=== PATIENT | female | born 1980 | race Two or more races ===

== ENCOUNTER 2020-10-12 12:04 | Outpatient (REF) | payer MEDICARE, MEDICAID, SELFPAY ==
[2020-10-12 13:16] LABS: Glucose Urine UA 500 MG/DL (NEG); Leukocyte Esterase Urine NEG (NEG); Nitrite Urine NEG (NEG); Urine Blood 1+ (NEG); Urine Ketones NEG (NEG); Urine Protein 3+ MG/DL (NEG-TRACE)
[2020-10-12 13:18] LABS: Appearance Urine HAZY; Color Urine YELLOW
[2020-10-12 13:45] LABS: Albumin Level 3.2 g/dL (3.5-5.0); Anion Gap 14 (12-20); Blood Urea Nitrogen 28 mg/dL (9-16); Calcium 8.5 mg/dL (8.4-10.2); Carbon Dioxide 24 mmol/L (22-29); Chloride 107 mmol/L (96-108); Estimated Glomerular Filt Rate 16; Magnesium 2.2 mg/dL (1.6-2.6); Phosphorus 4.7 mg/dL (2.7-4.5); Potassium 4.3 mmol/L (3.3-5.1); Sodium 141 mmol/L (135-145)
[2020-10-12 14:17] LABS: Creatinine Urine 62.41 mg/dL; Microalbum/Creatinine Ratio Ur 7218.3 ug/mg cr; Total Protein Urine Random 695 mg/dL (<12)
[2020-10-12 14:33] LABS: Squamous Epithelial Cell Urine 2+ /LPF; WBC Urine 0-2 /HPF (0-4)
== END 2020-10-12 12:05 | disposition home or self-care (01) ==
LOC: HO.LAB 12:04
PROVIDERS: PCP Hospitalist; Visit Provider Internal Medicine Nephrology
DX: R80.9 Proteinuria, unspecified (principal); E11.21 Type 2 diabetes mellitus with diabetic nephropathy; E11.22 Type 2 diabetes mellitus with diabetic chronic kidney disease; N18.30 Chronic kidney disease, stage 3 unspecified
CPT/HCPCS: 36415; 80051; 81001; 82040; 82043; 82310; 82565; 83735; 84100; 84156; 84520

== ENCOUNTER 2020-11-16 11:08 | Emergency (ER) | payer MEDICARE, MEDICAID, SELFPAY ==
--- NOTE | ~2020-11-16 | CT_ITS ---
EXAMINATION: CT ABDOMEN AND PELVIS WITHOUT CONTRAST CLINICAL INFORMATION: Abdominal pain. Elevated lipase. COMPARISON: Previous CT scan August 2019 TECHNIQUE: Multidetector volumetric imaging was performed from the superior aspect of the liver through the pubic symphysis. Sagittal and coronal reformatted images were obtained on the technologist's workstation. This CT examination was performed using dose optimization techniques as appropriate, variously including the following: *Automated exposure control *Adjustment of mA and/or kV according to patient size (this includes techniques or standardized protocols for targeted exams where dose is matched to indication/reason for exam; i.e. extremities or head) *Use of iterative reconstruction technique DLP: 06/14/2006 mGy-cm FINDINGS: LUNG BASES: The visualized lung bases are unremarkable. LIVER, GALLBLADDER, AND BILIARY TREE: The liver is normal in size, shape, and attenuation. No focal hepatic lesion or biliary ductal dilatation is present. The gallbladder is unremarkable with no evidence of radiopaque gallstones, gallbladder wall thickening, or obvious pericholecystic inflammatory changes. PANCREAS: Unremarkable. SPLEEN: Unremarkable. ADRENAL GLANDS: There is a 1 x 2 cm low-attenuation left adrenal nodule that is stable and probably represents a benign adenoma. The right adrenal gland is normal. KIDNEYS AND URETERS: The kidneys are normal in size, shape, and attenuation. No hydronephrosis, hydroureter, or calculi seen. No perinephric stranding. BLADDER: Unremarkable. GASTROINTESTINAL TRACT: There is mild diverticulosis of the colon. The small and large bowel are otherwise unremarkable. The appendix is unremarkable. ABDOMINAL WALL: There is a small umbilical hernia containing fat.. There is skin thickening of the lower abdominal wall and stranding of the subcutaneous fat questionable for cellulitis. This is new or increased compared to August 2019 exam. LYMPH NODES: Normal. VASCULAR: Unremarkable. PELVIC VISCERA: Unremarkable. OSSEOUS STRUCTURES: There are degenerative changes of the spine. CT/CT abdomen pelvis wo con IMPRESSION: Normal-appearing pancreas. No evidence of pancreatitis. Stable low-attenuation left adrenal nodule probably representing a benign adenoma. Mild diverticulosis of the colon. In thickening and stranding of the subcutaneous fat of the lower abdominal wall questionable cellulitis.
[2020-11-16 11:31] VITALS: BP 230/114; PULSE 114; RESP 24; O2SAT 99; BMI 57.9
--- NOTE | 2020-11-16 11:38 | ECG_ITS ---
Test Reason : ABDOMINAL PAIN Blood Pressure : / mmHG Vent. Rate : 111 BPM Atrial Rate : 111 BPM P-R Int : 140 ms QRS Dur : 082 ms QT Int : 354 ms P-R-T Axes : 062 -27 060 degrees QTc Int : 481 ms Sinus tachycardia Cannot rule out Inferior infarct , age undetermined Abnormal ECG When compared with ECG of 24-AUG-2019 14:13, Vent. rate has increased BY 38 BPM Minimal criteria for Inferior infarct are now Present Referred By: Generic ED Physician Electronically Signed By:ROOPA CHOWDARY MD
[2020-11-16 11:57] LABS: MANUAL DIFF FLAG NO
[2020-11-16 11:58] LABS: Basophils Percent Auto 0.5 % (0-2); Eosinophils Percent Auto 0.4 % (0-4); Hematocrit 39.8 % (37-47); Imm Gran Abs Auto 0.03 X10*3/uL (0.00-0.03); Imm Gran Pct Auto 0.4 % (0.0-0.4); Lymphocytes Absolute Auto 1.7 X10*3/uL (1.2-4.9); Mean Corpuscular HGB Conc 32.7 g/dl (31.0-35.0); Mean Corpuscular Hemoglobin 27.1 pg (27.0-33.0); Mean Corpuscular Volume 83.1 fL (80-98); Mean Platelet Volume 10.1 fL (9.4-12.3); Monocytes Absolute Auto 0.5 X10*3/uL (0.1-1.2); Monocytes Percent Auto 6.3 % (2-11); Neutrophils Absolute Auto 5.6 X10*3/uL (2.0-8.3); Neutrophils Percent Auto 70.4 % (45-73); Platelet Count 354 X10*3/uL (160-400); Red Blood Count 4.79 X10*6/uL (4.20-5.50); White Blood Count 7.9 X10*3/uL (4.8-10.8)
[2020-11-16 12:26] LABS: Anion Gap 15 (12-20); Blood Urea Nitrogen 27 mg/dL (9-16); Calcium 8.4 mg/dL (8.4-10.2); Carbon Dioxide 20 mmol/L (22-29); Chloride 101 mmol/L (96-108); Creatinine Clr Calc Pharmacy 35.5; Estimated Glomerular Filt Rate 15; Glucose Random 307 mg/dL (60-115); Potassium 4.2 mmol/L (3.3-5.1); Sodium 132 mmol/L (135-145)
--- NOTE | 2020-11-16 13:52 | ED.ABDPAIN ---
HPI - Abdominal Pain General Chief Complaint: Abdominal Pain Stated Complaint: cramping Time Seen by Provider: 11/16/20 13:43 Source: patient Mode of arrival: ambulatory Limitations: no limitations History of Present Illness MD elicited complaint: abdominal pain Pertinent past history: other (gastroparesis) Onset (ago): day(s) (3) Pain Consistency: constant Location: epigastric Severity: similar to previous episodes Quality: stabbing Radiation: none Migration to: no migration Exacerbating factors: eating Relieving factors: nothing Context: history of similar episodes (might have missed some doses of reglan) Associated symptoms: nausea, vomiting and other (pos BM yesterday, passing gas) Related Data Previous Rx's Medication Instructions Recorded atorvastatin 40 mg tablet 40 mg PO BEDTIME 90 Days #90 tab 04/20/20 furosemide 20 mg tablet 20 mg PO DAILY 90 Days #90 tab 04/20/20 inhalational spacing device #1 ea 04/20/20 insulin glargine 100 unit/mL 26 unit SUBCUT BID 30 Days #15.6 ml 04/20/20 subcutaneous solution insulin lispro 100 unit/mL 4 unit SUBCUT TID #100 ml 04/20/20 subcutaneous solution omeprazole 40 mg capsule,delayed 40 mg PO DAILY #30 cap 04/20/20 release omeprazole 40 mg capsule,delayed 40 mg PO DAILY 90 Days #90 cap 04/20/20 release promethazine 25 mg/mL injection 12.5 mg IM Q6H PRN 30 Days #25 ml 04/20/20 solution insulin syr/ndl U100 half varinder 0.3 #100 ea 07/06/20 mL 31 gauge x 5/16 metoclopramide HCl 10 mg tablet 10 mg PO QIDACHS PRN 30 Days #120 08/02/20 tab albuterol sulfate 90 mcg/actuation 2 puff INHALATION Q4-6H PRN #8.5 g 09/01/20 aerosol inhaler duloxetine 60 mg capsule,delayed 120 mg PO DAILY #180 cap 09/02/20 release montelukast 10 mg tablet 10 mg PO BEDTIME 90 Days #90 tab 11/05/20 valsartan 320 mg tablet 320 mg PO DAILY 90 Days #90 tab 11/05/20 Allergies Allergy/AdvReac Type Severity Reaction Status Date / Time No Known Allergies Allergy Unverified 02/26/20 19:10 [No Known Allergies*] none Allergy Unknown Uncoded 07/16/19 00:00 Review of Systems Review of Systems Constitutional : No Weight loss, No Fever, No Chills ENT/Mouth : No sore throat, No Rhinorrhea Eyes: No Swelling, No Redness Cardiovascular : No Chest Pain, No SOB, NoEdema Respiratory : No Cough, No Sputum, No Wheezing Gastrointestinal : Positive Nausea, Positive Vomiting, no Diarrhea, positive abdominal Pain, No Hematochezia, No Melena, no constipation Genitourinary : No Dysuria, No Urinary Frequency, No Hematuria, No Urgency Musculoskeletal : No joint pain, No Myalgias, No Joint Swelling Skin : No Skin Lesions, No rash Neuro : No Weakness, No Numbness, No Dizziness, No Headache Psych : No Anxiety/Panic, No Depression Heme/Lymph: No Bruising, No Lymphadenopathy Endocrine : No Polyuria, No Polydipsia All other systems reviewed and are negative. Physical Exam Vital Signs: Vital Signs: Last Vital Signs Pulse 114 H 11/16/20 11:31 Resp 18 11/16/20 14:16 BP 230/114 H 11/16/20 11:31 Pulse Ox 99 11/16/20 11:31 Body Mass Index 57.9 Appearance: Alert. Oriented X3. anxious mild acute distress. Eyes: Pupils equal, round and reactive to light. ENT: Pharynx dry MM Neck: Normal inspection. Neck supple. CVS: Normal heart rate and rhythm. Pulses normal. Respiratory: No respiratory distress. Breath sounds normal. Abdomen: Soft and moderate epigastric ttp no rebound or guarding Skin: Skin warm and dry. Normal skin color. Normal skin turgor. Extremities: No lower extremity edema. No calf ttp Neuro: Oriented X 3. No motor deficit. No sensory deficit. Course Course Course Narrative: CT scan ordered for elevated lipase negative CT scan no cellulitis noted on clinical exam I offered admission but she is drinking water now and wants to go home MDM - Abdominal Pain MDM Narrative Medical decision making narrative: 40 yo female with DM, CKD, gastroparesis, HLD, asthma, GERD, here with 3 days of upper abdominal pain and nausea vomiting after likely missing some doses of her reglan, at this time her pain is consistent with her prior gastroparesis - will need labs, IVF, IV reglan/benadryl for nausea, IV dilaudid for pain, dispo per results and improvement, Cr slightly above her most recent Lab Data Result diagrams: 11/16/20 11:49 11/16/20 11:49 Labs: Lab Results 11/16/20 11/16/20 Range/Units 11:49 11:49 WBC 7.9 (4.8-10.8) X10*3/uL RBC 4.79 (4.20-5.50) X10*6/uL Hgb 13.0 (12.0-16.0) g/dl Hct 39.8 (37-47) % MCV 83.1 (80-98) fL MCH 27.1 (27.0-33.0) pg MCHC 32.7 (31.0-35.0) g/dl RDW 13.0 (11.0-16.0) % Plt Count 354 (160-400) X10*3/uL MPV 10.1 (9.4-12.3) fL Immature Gran % (Auto) 0.4 (0.0-0.4) % Neut % (Auto) 70.4 (45-73) % Lymph % (Auto) 22.0 (20-40) % [place] % (Auto) 6.3 (2-11) % Eos % (Auto) 0.4 (0-4) % Baso % (Auto) 0.5 (0-2) % Lymph # (Auto) 1.7 (1.2-4.9) X10*3/uL [place] # (Auto) 0.5 (0.1-1.2) X10*3/uL Eos # (Auto) 0.0 (0.0-0.4) X10*3/uL Baso # (Auto) 0.0 (0.0-0.2) X10*3/uL Abs Immat Gran (auto) 0.03 (0.00-0.03) X10*3/uL Absolute Neuts (auto) 5.6 (2.0-8.3) X10*3/uL Absolute Nucleated RBC 0.000 (0.0-0.012) X10*3/uL Nucleated RBC % (auto) 0.0 (0.0-0.2) /100WBC Sodium 132 L (135-145) mmol/L Potassium 4.2 (3.3-5.1) mmol/L Chloride 101 (96-108) mmol/L Carbon Dioxide 20 L (22-29) mmol/L Anion Gap 15 (12-20) BUN 27 H (9-16) mg/dL Creatinine 3.38 H (0.5-1.4) mg/dL Estim Creat Clear Calc 35.5 Estimated GFR 15 Random Glucose 307 H (60-115) mg/dL Calcium 8.4 (8.4-10.2) mg/dL Total Bilirubin 0.4 (0.0-1.0) mg/dL Direct Bilirubin < 0.2 (0.0-0.5) mg/dL AST 16 (5-31) U/L ALT 15 (0-31) U/L Alkaline Phosphatase 152 H (39-117) U/L Total Protein 6.1 L (6.5-8.0) g/dL Albumin 3.0 L (3.5-5.0) g/dL Lipase 133 H (8-78) U/L Beta HCG, Quant < 2 mIU/mL ECG Data Attestation: I personally reviewed and interpreted this ECG as follows: ECG interpretation date: 11/16/20 ECG interpretation time: 14:32 Interpretation: Rate: 111 Rhythm: sinus tachycardia Cal[place]: left Normal P waves. Normal VILLA. Normal QRS complex. ST T wave : normal no JOSE GUADALUPE qTC: normal prior studies: no acute ischemia The study has been interpreted contemporaneously by me. . Discharge Plan Discharge Clinical Impression: Abdominal pain, Vomiting, DM gastroparesis Patient Disposition: Home, Self-Care Instructions: Gastroparesis (ED), Acute Nausea and Vomiting (ED) Additional Instructions: return to ED for any worsening symptoms or concerns you were offered admission but declined come back at any time Prescriptions: No Action insulin lispro [Humalog U-100 Insulin] 100 unit/mL solution 4 unit subcut TID Qty: 100 RF: 2 omeprazole 40 mg capsule,delayed release(DR/EC) 40 mg PO DAILY Qty: 30 RF: 2 atorvastatin 40 mg tablet 40 mg PO BEDTIME 90 Days Qty: 90 RF: 1 promethazine 25 mg/mL solution 12.5 mg IM Q6H PRN (Reason: nausea and vomiting) 30 Days Qty: 25 RF: 3 omeprazole 40 mg capsule,delayed release(DR/EC) 40 mg PO DAILY 90 Days Qty: 90 RF: 1 (DME) Aerochamber MV Spacer See Rx Instructions .ROUTE .MEDSUPPLY Qty: 1 RF: 0 furosemide [Lasix] 20 mg tablet 20 mg PO DAILY 90 Days Qty: 90 RF: 1 Lantus U-100 Insulin 100 unit/mL solution 26 unit subcut BID 30 Days Qty: 15.6 RF: 4 (DME) BD Insulin Syringe (half unit) 0.3 mL 31 gauge x 5/16 syringe See Rx Instructions .ROUTE .MEDSUPPLY Qty: 100 RF: 3 metoclopramide HCl [Reglan] 10 mg tablet 10 mg PO QIDACHS PRN (Reason: nausea and vomiting) 30 Days Qty: 120 RF: 2 albuterol sulfate 90 mcg/actuation HFA aerosol inhaler 2 puff inhalation Q4-6H PRN (Reason: shortness of breath or wheezing) Qty: 8.5 RF: 5 duloxetine 60 mg capsule,delayed release(DR/EC) 120 mg PO DAILY Qty: 180 RF: 1 montelukast [Singulair] 10 mg tablet 10 mg PO BEDTIME 90 Days Qty: 90 RF: 1 valsartan 320 mg tablet 320 mg PO DAILY 90 Days Qty: 90 RF: 1 Referrals: Medina Ren, ESPERANZA [Primary Care Provider] - 2 days (if not better) [facility] Past Medical History Attestation statement: The following information was validated with the patient. Medical History (Updated 11/16/20 @ 16:10 by Charleen Dia DO) Chronic GERD Controlled type 1 diabetes mellitus with kidney complication, with long-term current use of insulin Cyclic vomiting syndrome Gastroparesis High cholesterol Hypertension, essential Moderate persistent asthma, uncomplicated Surgical History (Updated 11/16/20 @ 14:04 by Charleen Dia DO) Previous back surgery Social History Social History (Updated 11/16/20 @ 14:04 by Charleen Dia DO) Alcohol intake: never Patient Tobacco Use Status: Never used Tobacco Use of substances other than those prescribed or required for medical reasons: No Substance Use Type: Marijuana Advance Directives: No Advance Directives Information Provided: No
[2020-11-16] MEDS: diphenhydrAMINE HCL 50 MG/ML VIAL 25 MG IVPUSH (14:15)
[2020-11-16 14:16] VITALS: RESP 18
[2020-11-16] MEDS: 0.9 % Sodium Chloride 1,000 ML 999 ML IVCONT ×2 (14:16→16:09)
[2020-11-16] MEDS: HYDROmorphone HCl 1 MG/ML SYRINGE IVPUSH (14:16)
[2020-11-16] MEDS: Metoclopramide HCl 10 MG/2 ML VIAL IVPUSH (14:16)
[2020-11-16 14:52] LABS: Alanine Aminotransferase 15 U/L (0-31); Alkaline Phosphatase 152 U/L (39-117); Aspartate Amino Transferase 16 U/L (5-31); Bilirubin Direct < 0.2 mg/dL (0.0-0.5); Bilirubin Total 0.4 mg/dL (0.0-1.0); Lipase 133 U/L (8-78); Total Protein 6.1 g/dL (6.5-8.0)
[2020-11-16 15:45] LABS: HCG Quantitative < 2 mIU/mL
[2020-11-16] MEDS: LORazepam 2 MG/ML VIAL 1 MG IVPUSH (16:09)
== END 2020-11-16 16:36 | disposition home or self-care (01) ==
PROVIDERS: Emergency Provider Emergency Medicine; PCP Hospitalist
DX: E10.43 Type 1 diabetes mellitus with diabetic autonomic (poly)neuropathy (principal); K31.84 Gastroparesis; R10.9 Unspecified abdominal pain; R11.10 Vomiting, unspecified; R00.0 Tachycardia, unspecified; I10 Essential (primary) hypertension; E78.00 Pure hypercholesterolemia, unspecified; F12.90 Cannabis use, unspecified, uncomplicated; Z79.4 Long term (current) use of insulin; Z79.02 Long term (current) use of antithrombotics/antiplatelets; Z79.899 Other long term (current) drug therapy
CPT/HCPCS: 36415; 74176; 80048; 80076; 83690; 84702; 85025; 93005; 96361; 96374; 96375; 99284; 99285; J1170; J1200; J2060; J2765

== ENCOUNTER 2020-11-21 16:03 | Observation (INO) | payer MEDICARE, MEDICAID, SELFPAY ==
[2020-11-21 16:11] VITALS: BP 191/107; PULSE 106; RESP 26; TEMP 36.5; O2SAT 99; BMI 58.1
[2020-11-21 16:31] LABS: Glucose, Whole Blood 259 mg/dL (60-115)
[2020-11-21 16:31] LABS: MANUAL DIFF FLAG NO
[2020-11-21 16:33] LABS: Basophils Absolute Auto 0.1 X10*3/uL (0.0-0.2); Basophils Percent Auto 0.6 % (0-2); Eosinophils Percent Auto 0.4 % (0-4); Hematocrit 38.2 % (37-47); Hemoglobin 12.7 g/dl (12.0-16.0); Imm Gran Abs Auto 0.02 X10*3/uL (0.00-0.03); Imm Gran Pct Auto 0.3 % (0.0-0.4); Lymphocytes Absolute Auto 1.6 X10*3/uL (1.2-4.9); Lymphocytes Percent Auto 20.1 % (20-40); Mean Corpuscular HGB Conc 33.2 g/dl (31.0-35.0); Mean Corpuscular Hemoglobin 27.3 pg (27.0-33.0); Mean Platelet Volume 10.5 fL (9.4-12.3); Monocytes Absolute Auto 0.4 X10*3/uL (0.1-1.2); Monocytes Percent Auto 4.5 % (2-11); Neutrophils Absolute Auto 5.8 X10*3/uL (2.0-8.3); Neutrophils Percent Auto 74.1 % (45-73); Platelet Count 350 X10*3/uL (160-400); Red Blood Count 4.66 X10*6/uL (4.20-5.50); Red Cell Distribution Width 13.2 % (11.0-16.0); White Blood Count 7.8 X10*3/uL (4.8-10.8)
[2020-11-21 17:00] LABS: Alanine Aminotransferase 23 U/L (0-31); Albumin Level 2.9 g/dL (3.5-5.0); Alkaline Phosphatase 145 U/L (39-117); Anion Gap 15 (12-20); Aspartate Amino Transferase 16 U/L (5-31); Bilirubin Direct < 0.2 mg/dL (0.0-0.5); Bilirubin Total 0.2 mg/dL (0.0-1.0); Blood Urea Nitrogen 20 mg/dL (9-16); Calcium 8.4 mg/dL (8.4-10.2); Carbon Dioxide 21 mmol/L (22-29); Chloride 104 mmol/L (96-108); Creatinine Clr Calc Pharmacy 35.9; Estimated Glomerular Filt Rate 15; Glucose Random 260 mg/dL (60-115); Lipase 30 U/L (8-78); Sodium 136 mmol/L (135-145); Total Protein 5.9 g/dL (6.5-8.0)
--- NOTE | 2020-11-21 21:23 | ED.ABDPAIN ---
HPI - Abdominal Pain General Chief Complaint: Abdominal Pain Stated Complaint: abd pain Time Seen by Provider: 11/21/20 21:20 History of Present Illness HPI narrative: Patient 40-year-old female with a history of diabetes. Long history of gastroparesis. She was in the emergency department 2 days prior for similar symptoms. Patient had nausea vomiting unable to tolerate fluids. No history of abdominal surgery. No fever no chills no cough no congestion. Positive flatter cysts. Patient is from home. Patient claims these episodes are very similar to previous bouts of gastroparesis. She was unable to take her Reglan at home. Presented back to the emergency department. No abdominal pain. Patient denies any pain on urination. No dizziness positive generalized malaise. Related Data Home Medications Medication Instructions Recorded Confirmed amlodipine 2 tab PO DAILY 11/21/20 11/21/20 bupropion HCl 1 tab PO QAM 11/21/20 11/21/20 clonazepam 1 tab PO BID 11/21/20 11/21/20 losartan 1 tab PO DAILY 11/21/20 11/21/20 trazodone 1 tab PO BEDTIME 11/21/20 11/21/20 Previous Rx's Medication Instructions Recorded atorvastatin 40 mg tablet 40 mg PO BEDTIME 90 Days #90 tab 04/20/20 furosemide 20 mg tablet 20 mg PO DAILY 90 Days #90 tab 04/20/20 inhalational spacing device #1 ea 04/20/20 insulin glargine 100 unit/mL 26 unit SUBCUT BID 30 Days #15.6 ml 04/20/20 subcutaneous solution insulin lispro 100 unit/mL 4 unit SUBCUT TID #100 ml 04/20/20 subcutaneous solution omeprazole 40 mg capsule,delayed 40 mg PO DAILY #30 cap 04/20/20 release insulin syr/ndl U100 half varinder 0.3 #100 ea 07/06/20 mL 31 gauge x 5/16 metoclopramide HCl 10 mg tablet 10 mg PO QIDACHS PRN 30 Days #120 08/02/20 tab albuterol sulfate 90 mcg/actuation 2 puff INHALATION Q4-6H PRN #8.5 g 09/01/20 aerosol inhaler duloxetine 60 mg capsule,delayed 120 mg PO DAILY #180 cap 09/02/20 release montelukast 10 mg tablet 10 mg PO BEDTIME 90 Days #90 tab 11/05/20 Allergies Allergy/AdvReac Type Severity Reaction Status Date / Time No Known Allergies Allergy Verified 11/21/20 21:55 [No Known Allergies*] none Allergy Unknown Unknown Uncoded 11/21/20 21:55 Review of Systems Review of Systems Constitutional: No Weight loss, No Fever, No Chills, No Night Sweats, No Fatigue, No Malaise ENT/Mouth: No Hearing loss, No Ear Pain, No Nasal Congestion, No Sinus Pain, No Hoarseness, No sore throat, No Rhinorrhea, No Swallowing Difficulty Eyes: No Eye Pain, No Swelling, No Redness, No Foreign Body, No Discharge, No Vision Changes Cardiovascular: No Chest Pain, No SOB, No Dyspnea on Exertion, No Orthopnea, No Edema, No Palpitations Respiratory: No Cough, No Sputum, No Wheezing, No Smoke Exposure, No Dyspnea Gastrointestinal: Positive Nausea, positive Vomiting, No Diarrhea, No Constipation, No abdominal Pain, No Hematochezia, No Melena Genitourinary: no irregular bleeding, No Dysuria, No Urinary Frequency, No Hematuria, No Urinary Incontinence, No Urgency, No Flank Pain, No Urinary Flow Changes, No Hesitancy Musculoskeletal: No joint pain, No Myalgias, No Joint Swelling Skin: No Skin Lesions, No rash Neuro: No Weakness, No Numbness, No Paresthesias, No Loss of Consciousness, No Dizziness, No Headache Psych: No Anxiety/Panic, No Depression, No SI/HI/AH/VH, No Social Issues, Heme/Lymph: No Bruising, No Bleeding,No Lymphadenopathy Endocrine: No Polyuria, No Polydipsia, No Temperature Intolerance Physical Exam Vital Signs: Vital Signs: Last Vital Signs Temp 99.0 F 11/22/20 00:29 Pulse 86 11/22/20 01:01 Resp 12 11/22/20 01:01 BP 191/92 H 11/22/20 01:01 Pulse Ox 96 11/22/20 01:01 Body Mass Index 58.1 Appearance: Alert. Oriented X3. No acute distress. Eyes: Pupils equal, round and reactive to light. ENT: Pharynx normal. Neck: Normal inspection. Neck supple. No lymph nodes noted. No crepitus CVS: Normal heart rate and rhythm. Pulses normal. Normal S1 and S2 Respiratory: No respiratory distress. Breath sounds normal. No Wheezing. No rales Abdomen: Soft and nontender. No rigidity. No distention. Diminished bowel sounds Skin: Skin warm and dry. Normal skin color. Normal skin turgor. Extremities: No lower extremity edema. Neurovascular intact to all extremities. No Lacerations. No Rash Neuro: Oriented X 3. No motor deficit. No sensory deficit. Moving all extermities. No slurred speech MDM - Abdominal Pain MDM Narrative Medical decision making narrative: Patient has gastroparesis. Was given Reglan IV. Blood pressure extremely elevated. Given her usual medication which she has not been taking because of the gastroparesis. She was given 10 mg of amlodipine and additional 20 mg of Lasix. Monitor in the emergency department. Creatinine is baseline. It is about 3. Patient's given a dose of labetalol. Blood pressure remained the same. Will give a 2nd dose of labetalol. Will admit patient for observation overnight. Or patients waiting he developed nonspecific chest pain will go ahead get a set of troponin. Patient's case discussed with the hospitalist team will admit for further evaluation. Lab Data Attestation: I reviewed the patient's lab results. Result diagrams: 11/21/20 16:26 11/21/20 16:26 Labs: Lab Results 11/21/20 11/21/20 11/21/20 Range/Units 16:17 16:26 16:26 WBC 7.8 (4.8-10.8) X10*3/uL RBC 4.66 (4.20-5.50) X10*6/uL Hgb 12.7 (12.0-16.0) g/dl Hct 38.2 (37-47) % MCV 82.0 (80-98) fL MCH 27.3 (27.0-33.0) pg MCHC 33.2 (31.0-35.0) g/dl RDW 13.2 (11.0-16.0) % Plt Count 350 (160-400) X10*3/uL MPV 10.5 (9.4-12.3) fL Immature Gran % (Auto) 0.3 (0.0-0.4) % Neut % (Auto) 74.1 H (45-73) % Lymph % (Auto) 20.1 (20-40) % [place] % (Auto) 4.5 (2-11) % Eos % (Auto) 0.4 (0-4) % Baso % (Auto) 0.6 (0-2) % Lymph # (Auto) 1.6 (1.2-4.9) X10*3/uL [place] # (Auto) 0.4 (0.1-1.2) X10*3/uL Eos # (Auto) 0.0 (0.0-0.4) X10*3/uL Baso # (Auto) 0.1 (0.0-0.2) X10*3/uL Abs Immat Gran (auto) 0.02 (0.00-0.03) X10*3/uL Absolute Neuts (auto) 5.8 (2.0-8.3) X10*3/uL Absolute Nucleated RBC 0.000 (0.0-0.012) X10*3/uL Nucleated RBC % (auto) 0.0 (0.0-0.2) /100WBC Sodium 136 (135-145) mmol/L Potassium 4.0 (3.3-5.1) mmol/L Chloride 104 (96-108) mmol/L Carbon Dioxide 21 L (22-29) mmol/L Anion Gap 15 (12-20) BUN 20 H (9-16) mg/dL Creatinine 3.35 H (0.5-1.4) mg/dL Estim Creat Clear Calc 35.9 Estimated GFR 15 POC Glucose 259 H (60-115) mg/dL Random Glucose 260 H (60-115) mg/dL Calcium 8.4 (8.4-10.2) mg/dL Total Bilirubin 0.2 (0.0-1.0) mg/dL Direct Bilirubin < 0.2 (0.0-0.5) mg/dL AST 16 (5-31) U/L ALT 23 (0-31) U/L Alkaline Phosphatase 145 H (39-117) U/L Total Protein 5.9 L (6.5-8.0) g/dL Albumin 2.9 L (3.5-5.0) g/dL Lipase 30 (8-78) U/L 11/22/20 Range/Units 00:25 WBC (4.8-10.8) X10*3/uL RBC (4.20-5.50) X10*6/uL Hgb (12.0-16.0) g/dl Hct (37-47) % MCV (80-98) fL MCH (27.0-33.0) pg MCHC (31.0-35.0) g/dl RDW (11.0-16.0) % Plt Count (160-400) X10*3/uL MPV (9.4-12.3) fL Immature Gran % (Auto) (0.0-0.4) % Neut % (Auto) (45-73) % Lymph % (Auto) (20-40) % [place] % (Auto) (2-11) % Eos % (Auto) (0-4) % Baso % (Auto) (0-2) % Lymph # (Auto) (1.2-4.9) X10*3/uL [place] # (Auto) (0.1-1.2) X10*3/uL Eos # (Auto) (0.0-0.4) X10*3/uL Baso # (Auto) (0.0-0.2) X10*3/uL Abs Immat Gran (auto) (0.00-0.03) X10*3/uL Absolute Neuts (auto) (2.0-8.3) X10*3/uL Absolute Nucleated RBC (0.0-0.012) X10*3/uL Nucleated RBC % (auto) (0.0-0.2) /100WBC Sodium (135-145) mmol/L Potassium (3.3-5.1) mmol/L Chloride (96-108) mmol/L Carbon Dioxide (22-29) mmol/L Anion Gap (12-20) BUN (9-16) mg/dL Creatinine (0.5-1.4) mg/dL Estim Creat Clear Calc Estimated GFR POC Glucose 133 H (60-115) mg/dL Random Glucose (60-115) mg/dL Calcium (8.4-10.2) mg/dL Total Bilirubin (0.0-1.0) mg/dL Direct Bilirubin (0.0-0.5) mg/dL AST (5-31) U/L ALT (0-31) U/L Alkaline Phosphatase (39-117) U/L Total Protein (6.5-8.0) g/dL Albumin (3.5-5.0) g/dL Lipase (8-78) U/L ECG Data Attestation: I personally reviewed and interpreted this ECG as follows: Interpretation: Patient's EKG showed a sinus pattern heart rate is about 100 [place] QRS QT within normal limits there is nonspecific T-wave flattening noted. Critical Care Time Critical Care Time Total Critical Care Time: 40 Attestation: I have personally provided 40 minutes of critical care time exclusive of time spent on separately billable procedures. Time includes review of lab data, radiology results, discussion with consultants, and monitoring for potential decompensation. Interventions were performed as documented above Discharge Plan Discharge Prescriptions: No Action insulin lispro [Humalog U-100 Insulin] 100 unit/mL solution 4 unit subcut TID Qty: 100 RF: 2 omeprazole 40 mg capsule,delayed release(DR/EC) 40 mg PO DAILY Qty: 30 RF: 2 atorvastatin 40 mg tablet 40 mg PO BEDTIME 90 Days Qty: 90 RF: 1 (DME) Aerochamber MV Spacer See Rx Instructions .ROUTE .MEDSUPPLY Qty: 1 RF: 0 furosemide [Lasix] 20 mg tablet 20 mg PO DAILY 90 Days Qty: 90 RF: 1 Lantus U-100 Insulin 100 unit/mL solution 26 unit subcut BID 30 Days Qty: 15.6 RF: 4 (DME) BD Insulin Syringe (half unit) 0.3 mL 31 gauge x 5/16 syringe See Rx Instructions .ROUTE .MEDSUPPLY Qty: 100 RF: 3 metoclopramide HCl [Reglan] 10 mg tablet 10 mg PO QIDACHS PRN (Reason: nausea and vomiting) 30 Days Qty: 120 RF: 2 albuterol sulfate 90 mcg/actuation HFA aerosol inhaler 2 puff inhalation Q4-6H PRN (Reason: shortness of breath or wheezing) Qty: 8.5 RF: 5 duloxetine 60 mg capsule,delayed release(DR/EC) 120 mg PO DAILY Qty: 180 RF: 1 montelukast [Singulair] 10 mg tablet 10 mg PO BEDTIME 90 Days Qty: 90 RF: 1 clonazepam 0.5 mg tablet 1 tab PO BID RF: 0 amlodipine 5 mg tablet 2 tab PO DAILY RF: 0 trazodone 150 mg tablet 1 tab PO BEDTIME RF: 0 losartan 100 mg tablet 1 tab PO DAILY RF: 0 bupropion HCl 300 mg tablet extended release 24 hr 1 tab PO QAM RF: 0 PMFSH Past Medical History Medical History Chronic GERD Controlled type 1 diabetes mellitus with kidney complication, with long-term current use of insulin Cyclic vomiting syndrome Gastroparesis High cholesterol Hypertension, essential Moderate persistent asthma, uncomplicated Surgical History Previous back surgery Social History Social History (Updated 11/16/20 @ 14:04 by Charleen Dia DO) Alcohol intake: never Patient Tobacco Use Status: Never used Tobacco Substance Use Type: Marijuana Advance Directives: No Advance Directives Information Provided: Yes Patient : No
[2020-11-21] MEDS: HYDROmorphone HCl 0.5 MG/0.5 ML SYRINGE IVPUSH (21:41)
[2020-11-21] MEDS: 0.9 % Sodium Chloride 1,000 ML 999 ML IV (21:41)
[2020-11-21] MEDS: Metoclopramide HCl 10 MG/2 ML VIAL IVPUSH (21:41)
[2020-11-21] MEDS: LORazepam 2 MG/ML VIAL 0.5 MG IVPUSH (21:41)
[2020-11-21 21:49] VITALS: BP 242/119; PULSE 88; RESP 19; TEMP 37.3; O2SAT 98
--- NOTE | 2020-11-21 21:55 | PC.NURSE ---
Dr Vaughn aware of pt's BP
[2020-11-21 22:06] VITALS: BP 249/119; PULSE 88
[2020-11-21] MEDS: Furosemide 20 MG TABLET PO (22:06)
[2020-11-21] MEDS: amLODIPine Besylate 10 MG TABLET PO (22:06)
[2020-11-21 23:07] VITALS: BP 247/116; PULSE 88; RESP 17; TEMP 37.2; O2SAT 98
--- NOTE | 2020-11-21 23:12 | PC.NURSE ---
Dr Reilly aware of repeat BP
[2020-11-22] VITALS (13 sets, daily range): BP systolic 164–223; BP diastolic 76–106; PULSE 79–96; RESP 12–18; TEMP 36.8–37.2; O2SAT 94–99
--- NOTE | 2020-11-22 | ECG_ITS ---
Test Reason : HYPERTENTION Blood Pressure : / mmHG Vent. Rate : 099 BPM Atrial Rate : 099 BPM P-R Int : 144 ms QRS Dur : 090 ms QT Int : 368 ms P-R-T Axes : 038 -23 084 degrees QTc Int : 472 ms Normal sinus rhythm Nonspecific ST and T wave abnormality Borderline ECG When compared with ECG of 16-NOV-2020 14:15, Nonspecific ST and T wave abnormality Lateral leads Referred By: Shawna Reilly Electronically Signed By:ANA LUISA COLLAZO
[2020-11-22] MEDS: Labetalol HCL 100 MG/20 ML VIAL 10 MG IVPUSH ×2 (00:32→02:34)
[2020-11-22 00:38] LABS: Glucose, Whole Blood 133 mg/dL (60-115)
[2020-11-22 03:05] LABS: Troponin-I High Sensitivity 55.6 ng/L (<3.5-17.0)
[2020-11-22 03:06] LABS: COVID-19 Test Negative (Negative); IDNOW Serial# 9DD0AD1C
--- NOTE | 2020-11-22 03:22 | P.HPHOSP_ITS ---
History of Present Illness Date of Service: 11/22/20 Chief Complaint: Nausea and vomiting 40-year-old female with a past medical history of hypertension, diabetes, gastroparesis, chronic kidney disease presented to the hospital with a chief complaint of nausea vomiting and poor oral intake. Patient mentioned that about a week ago she came to the hospital with similar complaints; subsequently she improved and sent home. After she went home for couple days she was doing okay and then she started to have nausea and vomiting again and has not been tolerating p.o.. Also have abdominal cramping secondary to vomiting. Denies any chest pain palpitations lightheadedness dizziness, fevers, chills, cough. Denies any headaches or blurry visions. Denies any numbness or tingling. Patient mentions that she tries to take Reglan at home the symptoms. Patient also mentions that she intermittently uses cannabis and attributes it or using it for nausea. Review of all other systems is negative except mentioned above ER course: Per ER team patient exam was nonfocal., labs were essentially benign; creatinine at baseline. Troponin slightly elevated was nonischemic. Patient noted to have blood pressure with systolic in 200s. Given a dose of labetalol. Admitted for further management. [facility] Medical History Chronic GERD Controlled type 1 diabetes mellitus with kidney complication, with long-term current use of insulin Cyclic vomiting syndrome Gastroparesis High cholesterol Hypertension, essential Moderate persistent asthma, uncomplicated Surgical History Previous back surgery Social History (Updated 11/16/20 @ 14:04 by Charleen Dia DO) Alcohol intake: never Patient Tobacco Use Status: Never used Tobacco Substance Use Type: Marijuana service: No Current occupational status: disabled Meds Allergies Allergy/AdvReac Type Severity Reaction Status Date / Time No Known Allergies Allergy Verified 11/21/20 21:55 [No Known Allergies*] none Allergy Unknown Unknown Uncoded 11/21/20 21:55 Active Medications: Current Medications Generic Name Dose Route Start Last Admin Trade Name Freq PRN Reason Stop Dose Admin Acetaminophen 650 mg 11/22/20 03:17 Acetaminophen 325 Mg Tablet PO Q6H PRN Pain, Mild (Pain Scale 1-3) Albuterol Sulfate 2 puff 11/22/20 03:20 Albuterol Sulfate 90 Mcg 8 Gm Inhaler INHALE Q4-6H PRN shortness of breath or wheezing Amlodipine Besylate 10 mg 11/22/20 09:00 Amlodipine Besylate 5 Mg Tablet PO DAILY [facility] Protocol Atorvastatin Calcium 40 mg 11/22/20 21:00 Atorvastatin Calcium 40 Mg Tablet PO BEDTIME [facility] Bupropion HCl 300 mg 11/22/20 03:30 Bupropion Hcl Xl 300 Mg Tab.Er.24h PO QAM [facility] Clonazepam 0.5 mg 11/22/20 09:00 Clonazepam 0.5 Mg Tablet PO BID [facility] Duloxetine HCl 120 mg 11/22/20 09:00 Duloxetine Hcl 60 Mg Capsule. PO DAILY [facility] Furosemide 20 mg 11/22/20 09:00 Furosemide 20 Mg Tablet PO DAILY [facility] Protocol Insulin Glargine 15 unit 11/22/20 09:00 Insulin Glargine,Hum.Rec.Anlog 100 Unit/Ml 10 Ml Vial SUBCUT BID [facility] Insulin Glargine 26 unit 11/22/20 09:00 Insulin Glargine,Hum.Rec.Anlog 100 Unit/Ml 10 Ml Vial SUBCUT BID [facility] Insulin Human Lispro 0 unit 11/22/20 07:30 Insulin Lispro 100 Unit/Ml 3 Ml Vial SUBCUT QIDACHS [facility] Protocol Insulin Human Lispro 4 unit 11/22/20 09:00 Insulin Lispro 100 Unit/Ml 3 Ml Vial SUBCUT TID [facility] Losartan Potassium 100 mg 11/22/20 09:00 Losartan Potassium 50 Mg Tablet PO DAILY [facility] Protocol Magnesium Hydroxide 30 ml 11/22/20 03:17 Milk Of Magnesia 30 Ml Oral.Susp PO DAILY PRN Constipation Metoclopramide HCl 5 mg 11/22/20 03:17 Metoclopramide Hcl 10 Mg/2 Ml Vial IVPUSH Q6H PRN Nausea and Vomiting Metoclopramide HCl 10 mg 11/22/20 03:20 Metoclopramide Hcl 10 Mg Tablet PO QIDACHS PRN nausea and vomiting Montelukast Sodium 10 mg 11/22/20 21:00 Montelukast Sodium 10 Mg Tablet PO BEDTIME [facility] Omeprazole 40 mg 11/22/20 09:00 Omeprazole 40 Mg Capsule. PO DAILY [facility] Sodium Chloride 3 ml 11/22/20 08:00 0.9 % Sodium Chloride Flush 3 Ml Syringe IVFLUSH QSHIFT [facility] Trazodone HCl 150 mg 11/22/20 21:00 Trazodone Hcl 50 Mg Tablet PO BEDTIME [facility] Home Medications Medication Instructions Recorded Confirmed Last Taken Type amlodipine 2 tab PO DAILY 11/21/20 11/21/20 Unknown History bupropion HCl 1 tab PO QAM 11/21/20 11/21/20 Unknown History clonazepam 1 tab PO BID 11/21/20 11/21/20 Unknown History losartan 1 tab PO DAILY 11/21/20 11/21/20 Unknown History trazodone 1 tab PO BEDTIME 11/21/20 11/21/20 Unknown History Physical Exam Vital Signs and Narrative: Vital Signs: Last Vital Signs Temp 98.4 F 11/22/20 03:06 Pulse 79 11/22/20 03:06 Resp 15 11/22/20 03:06 BP 180/94 H 11/22/20 03:06 Pulse Ox 96 11/22/20 03:06 Body Mass Index 58.1 Gen: Appears be in no acute distress; obese HEENT: NCAT, Moist mucosa. Pulmonary: Vesicular breath sounds, fair air entry CVS: Normal S1-S2 Abdomen: BS+, Soft, nontender Extremities: Warm well perfused Neuro: Alert and awake. Grossly nonfocal Results Labs CBC and Chem 7: 11/22/20 06:43 11/22/20 06:43 Labs: Laboratory Results - last 24 hr 11/21/20 11/21/20 11/21/20 16:17 16:26 16:26 MCV 82.0 MCH 27.3 MCHC 33.2 RDW 13.2 Plt Count 350 MPV 10.5 Immature Gran % (Auto) 0.3 Neut % (Auto) 74.1 H Lymph % (Auto) 20.1 [place] % (Auto) 4.5 Eos % (Auto) 0.4 Baso % (Auto) 0.6 Lymph # (Auto) 1.6 [place] # (Auto) 0.4 Eos # (Auto) 0.0 Baso # (Auto) 0.1 Abs Immat Gran (auto) 0.02 Absolute Neuts (auto) 5.8 Absolute Nucleated RBC 0.000 Nucleated RBC % (auto) 0.0 Anion Gap 15 Estim Creat Clear Calc 35.9 Estimated GFR 15 POC Glucose 259 H Random Glucose 260 H Calcium 8.4 Total Bilirubin 0.2 Direct Bilirubin < 0.2 AST 16 ALT 23 Alkaline Phosphatase 145 H Troponin I High Sens Total Protein 5.9 L Albumin 2.9 L Lipase 30 COVID-19 ([facility]) COVID-19 Clin Com 11/22/20 11/22/20 11/22/20 00:25 02:28 02:28 MCV MCH MCHC RDW Plt Count MPV Immature Gran % (Auto) Neut % (Auto) Lymph % (Auto) [place] % (Auto) Eos % (Auto) Baso % (Auto) Lymph # (Auto) [place] # (Auto) Eos # (Auto) Baso # (Auto) Abs Immat Gran (auto) Absolute Neuts (auto) Absolute Nucleated RBC Nucleated RBC % (auto) Anion Gap Estim Creat Clear Calc Estimated GFR POC Glucose 133 H Random Glucose Calcium Total Bilirubin Direct Bilirubin AST ALT Alkaline Phosphatase Troponin I High Sens 55.6 H* Total Protein Albumin Lipase COVID-19 ([facility]) Negative COVID-19 Clin Com See Note Assessment and Plan (1) Hypertensive urgency: Status: Acute 40-year-old female with a past medical history of hypertension, type 1 diabetes, gastroparesis presented to the hospital with a chief complaint of nausea vomiting and will not intake. Nausea/vomiting: Likely in the setting of gastroparesis. Patient also attributes using intermittent cannabis. Patient counseled to avoid cannabis use. Supportive care. Advanced diet as tolerated. Hypertensive urgency: Patient denies any headaches or blurry visions. Grossly nonfocal examination. Given labetalol in the ER. Continue home medications. Labetalol p.r.n.. Patient has followups with Dr. Bustillo for hypertension and CKD. Will consult Dr. Bustillo. Slightly elevated troponin: Likely reduced clearance. EKG nonischemic. Patient denies any chest pain. Repeat levels. Diabetes: Will keep the patient on Lantus 15 units b.i.d. now. Patient takes Lantus 26 units b.i.d. at home. Insulin sliding scale. DVT prophylaxis: SCD boots Code status: Full code
[2020-11-22 06:52] LABS: MANUAL DIFF FLAG NO
--- NOTE | 2020-11-22 07:11 | PC.NURSE ---
report given to darlene ortiz and maximo ortiz at [facility] time
[2020-11-22 07:12] LABS: Basophils Absolute Auto 0.1 X10*3/uL (0.0-0.2); Basophils Percent Auto 0.7 % (0-2); Eosinophils Absolute Auto 0.1 X10*3/uL (0.0-0.4); Eosinophils Percent Auto 1.7 % (0-4); Hematocrit 35.1 % (37-47); Hemoglobin 11.2 g/dl (12.0-16.0); Imm Gran Abs Auto 0.03 X10*3/uL (0.00-0.03); Imm Gran Pct Auto 0.4 % (0.0-0.4); Lymphocytes Absolute Auto 3.2 X10*3/uL (1.2-4.9); Lymphocytes Percent Auto 41.1 % (20-40); Mean Corpuscular HGB Conc 31.9 g/dl (31.0-35.0); Mean Corpuscular Hemoglobin 26.5 pg (27.0-33.0); Mean Corpuscular Volume 83.2 fL (80-98); Mean Platelet Volume 10.7 fL (9.4-12.3); Monocytes Absolute Auto 0.7 X10*3/uL (0.1-1.2); Neutrophils Absolute Auto 3.6 X10*3/uL (2.0-8.3); Neutrophils Percent Auto 47.1 % (45-73); Platelet Count 331 X10*3/uL (160-400); Red Blood Count 4.22 X10*6/uL (4.20-5.50); Red Cell Distribution Width 13.3 % (11.0-16.0); White Blood Count 7.7 X10*3/uL (4.8-10.8)
[2020-11-22 07:32] LABS: Glucose, Whole Blood 166 mg/dL (60-115)
[2020-11-22 07:38] LABS: Anion Gap 13 (12-20); Blood Urea Nitrogen 17 mg/dL (9-16); Carbon Dioxide 20 mmol/L (22-29); Chloride 109 mmol/L (96-108); Creatinine Clr Calc Pharmacy 37.6; Estimated Glomerular Filt Rate 16; Glucose Random 181 mg/dL (60-115); Potassium 3.4 mmol/L (3.3-5.1); Sodium 139 mmol/L (135-145)
--- NOTE | 2020-11-22 08:06 | PC.NURSE ---
clarification needed for Insulin Glargine, pharmacy was contacted and will call back with correct dosage. Insulin not given, awaiting clarification from pharmacy. Awaiting PO Reglan from pharmacy.
[2020-11-22] MEDS: Metoclopramide HCl 10 MG TABLET PO (08:11)
[2020-11-22] MEDS: buPROPion HCl XL 300 MG TAB.ER.24H PO (09:12)
[2020-11-22] MEDS: amLODIPine Besylate 5 MG TABLET 10 MG PO (09:12)
[2020-11-22] MEDS: Furosemide 20 MG TABLET PO (09:12)
[2020-11-22] MEDS: Omeprazole 40 MG CAPSULE.DR PO (09:12)
[2020-11-22] MEDS: DULoxetine HCl 60 MG CAPSULE.DR 120 MG PO (09:12)
[2020-11-22] MEDS: Losartan Potassium 50 MG TABLET 100 MG PO (09:13)
[2020-11-22] MEDS: 0.9 % Sodium Chloride Flush 3 ML SYRINGE IVFLUSH (09:14)
--- NOTE | 2020-11-22 09:15 | MHC.CM.PN ---
Addendum entered by Nathan Cloud 11/22/20 11:56: pt was dc'd and left prior to signing medicare observation notice. Original Note: pt lives c her s.o. and she is waiting for her to come as she is concerned why she was admitted and verbalized to me that she may leave AMA. she did not wish to share anything else regarding dc needs at this time. hence, dc plan is home no svcs. s.o. to transport at dc. i did tell her that if there was anything she needed at dc then she could ask for me as i am here all day and would be happy to help her. cm to cont. to follow.
--- NOTE | 2020-11-22 09:16 | PC.NURSE ---
Pt intially given Reglan as charted to help with stomach upset in order to tolerate PO meds. Pt taking PO meds at this time. Insulin orders unclear, awaiting clarification and diet status to ensure pt able to eat prior to admin, POC this morning 166.
--- NOTE | 2020-11-22 09:41 | PM.DS ---
DS: Providers Provider Date of Service: 11/22/20 <Isa Up NP - Last Filed: 11/22/20 09:45> Date of admission: 11/22/20 03:17 <Isa Up NP - Last Filed: 11/22/20 09:45> Date of discharge: 11/22/20 <Isa Up NP - Last Filed: 11/22/20 09:45> Primary care physician: Medina Ren NP <Isa Up NP - Last Filed: 11/22/20 09:45> Admitting clinician: Taz Recio <Isa Up NP - Last Filed: 11/22/20 09:45> Attending physician on admission: Taz Recio <Isa Up NP - Last Filed: 11/22/20 09:45> Consults: 11/22/20 03:17 Consult to Nephrology Routine Consulting Provider: Saroj Bustillo Reason for consultation: htn urgency; CKD 5 <Isa Up NP - Last Filed: 11/22/20 09:45> Attending physician on discharge: Ken Rodgers <Isa Up NP - Last Filed: 11/22/20 09:45> Discharging clinician: Isa Up <Isa Up NP - Last Filed: 11/22/20 09:45> DS: Diagnosis Discharge Diagnosis (1) Hypertensive urgency: Status: Acute <Isa Up NP - Last Filed: 11/22/20 09:45> DS: Medications Discharge Medications Home Medications: Home Medications Medication Instructions Recorded Confirmed amlodipine 2 tab PO DAILY 11/21/20 11/21/20 bupropion HCl 1 tab PO QAM 11/21/20 11/21/20 clonazepam 1 tab PO BID 11/21/20 11/21/20 losartan 1 tab PO DAILY 11/21/20 11/21/20 trazodone 1 tab PO BEDTIME 11/21/20 11/21/20 Previous Rx's Medication Instructions Recorded atorvastatin 40 mg tablet 40 mg PO BEDTIME 90 Days #90 tab 04/20/20 furosemide 20 mg tablet 20 mg PO DAILY 90 Days #90 tab 04/20/20 inhalational spacing device #1 ea 04/20/20 insulin glargine 100 unit/mL 26 unit SUBCUT BID 30 Days #15.6 ml 04/20/20 subcutaneous solution insulin lispro 100 unit/mL 4 unit SUBCUT TID #100 ml 04/20/20 subcutaneous solution omeprazole 40 mg capsule,delayed 40 mg PO DAILY #30 cap 04/20/20 release insulin syr/ndl U100 half varinder 0.3 #100 ea 07/06/20 mL 31 gauge x 5/16 metoclopramide HCl 10 mg tablet 10 mg PO QIDACHS PRN 30 Days #120 08/02/20 tab albuterol sulfate 90 mcg/actuation 2 puff INHALATION Q4-6H PRN #8.5 g 09/01/20 aerosol inhaler duloxetine 60 mg capsule,delayed 120 mg PO DAILY #180 cap 09/02/20 release montelukast 10 mg tablet 10 mg PO BEDTIME 90 Days #90 tab 11/05/20 <Isa Up NP - Last Filed: 11/22/20 09:45> DS: Summary Hospital Course Hospital Course: HP as per admitting provider 40-year-old female with a past medical history of hypertension, diabetes, gastroparesis, chronic kidney disease presented to the hospital with a chief complaint of nausea vomiting and poor oral intake. Patient mentioned that about a week ago she came to the hospital with similar complaints; subsequently she improved and sent home. After she went home for couple days she was doing okay and then she started to have nausea and vomiting again and has not been tolerating p.o.. Also have abdominal cramping secondary to vomiting. Denies any chest pain palpitations lightheadedness dizziness, fevers, chills, cough. Denies any headaches or blurry visions. Denies any numbness or tingling. Patient mentions that she tries to take Reglan at home the symptoms. Patient also mentions that she intermittently uses cannabis and attributes it or using it for nausea . Hypertensive urgency. Patient was admitted for hypertensive urgency. With a history of chronic kidney disease and diabetes. Patient stated that she did not want to be worked up for her blood pressure as her blood pressure is always high due to her kidney disease. She wanted to be worked up for her diabetic gastroparesis. She was told that she could be seen by a child welfare manager while she is inpatient however she declined and stated that she would rather do it as an outpatient therefore the names of the child welfare manager at [facility] will be given to her and she can follow-up with them as outpatient. She is aware that her blood pressure is high and she could have other affects including syncope, stroke which could have devastating outcomes. Patient is aware and wants to leave against medical advice. Attending Attestation: Pt left AMA before being seen by me. <Isa Up NP - Last Filed: 11/22/20 09:45> Time Spent with Patient Time attestation: Total time spent providing and/or coordinating discharge services: <Isa Up NP - Last Filed: 11/22/20 09:45> Discharge coordination time: Greater than 30 minutes <Isa Up NP - Last Filed: 11/22/20 09:45> Quality: Stroke Does the patient have a stroke diagnosis?: No <Isa Up NP - Last Filed: 11/22/20 09:45> Physical Exam Vital Signs: Vital Signs: Last Vital Signs Temp 98.3 F 11/22/20 07:56 Pulse 83 11/22/20 09:18 Resp 16 11/22/20 09:18 BP 174/81 H 11/22/20 09:18 Pulse Ox 94 11/22/20 08:13 Body Mass Index 58.1 <Isa Up NP - Last Filed: 11/22/20 09:45> Appearing in no acute distress head is normocephalic atraumatic eyes pupils are PERRLA sclera is anicteric mouth throat mucous membranes are intact and moist neck is supple no lymphadenopathy, no JVD noted lung sounds are clear to auscultation heart regular rate rhythm, clear S1, S2 positive bowel sounds, abdomen is soft, nontender,obese neuro patient is alert x3, no focal deficits <Isa Up NP - Last Filed: 11/22/20 09:45> DS: Data Data Completed and Pending Labs on day of discharge: Laboratory Results - last 24 hr 11/21/20 11/21/20 11/21/20 16:17 16:26 16:26 WBC 7.8 RBC 4.66 Hgb 12.7 Hct 38.2 MCV 82.0 MCH 27.3 MCHC 33.2 RDW 13.2 Plt Count 350 MPV 10.5 Immature Gran % (Auto) 0.3 Neut % (Auto) 74.1 H Lymph % (Auto) 20.1 [place] % (Auto) 4.5 Eos % (Auto) 0.4 Baso % (Auto) 0.6 Lymph # (Auto) 1.6 [place] # (Auto) 0.4 Eos # (Auto) 0.0 Baso # (Auto) 0.1 Abs Immat Gran (auto) 0.02 Absolute Neuts (auto) 5.8 Absolute Nucleated RBC 0.000 Nucleated RBC % (auto) 0.0 Sodium 136 Potassium 4.0 Chloride 104 Carbon Dioxide 21 L Anion Gap 15 BUN 20 H Creatinine 3.35 H Estim Creat Clear Calc 35.9 Estimated GFR 15 POC Glucose 259 H Random Glucose 260 H Calcium 8.4 Total Bilirubin 0.2 Direct Bilirubin < 0.2 AST 16 ALT 23 Alkaline Phosphatase 145 H Troponin I High Sens Total Protein 5.9 L Albumin 2.9 L Lipase 30 COVID-19 ([facility]) COVID-[facility] [employer] 11/22/20 11/22/20 11/22/20 00:25 02:28 02:28 WBC RBC Hgb Hct MCV MCH MCHC RDW Plt Count MPV Immature Gran % (Auto) Neut % (Auto) Lymph % (Auto) [place] % (Auto) Eos % (Auto) Baso % (Auto) Lymph # (Auto) [place] # (Auto) Eos # (Auto) Baso # (Auto) Abs Immat Gran (auto) Absolute Neuts (auto) Absolute Nucleated RBC Nucleated RBC % (auto) Sodium Potassium Chloride Carbon Dioxide Anion Gap BUN Creatinine Estim Creat Clear Calc Estimated GFR POC Glucose 133 H Random Glucose Calcium Total Bilirubin Direct Bilirubin AST ALT Alkaline Phosphatase Troponin I High Sens 55.6 H* Total Protein Albumin Lipase COVID-19 ([facility]) Negative COVID-19 Clin Com See Note 11/22/20 11/22/20 11/22/20 06:43 06:43 06:43 WBC 7.7 RBC 4.22 Hgb 11.2 L Hct 35.1 L MCV 83.2 MCH 26.5 L MCHC 31.9 RDW 13.3 Plt Count 331 MPV 10.7 Immature Gran % (Auto) 0.4 Neut % (Auto) 47.1 Lymph % (Auto) 41.1 H [place] % (Auto) 9.0 Eos % (Auto) 1.7 Baso % (Auto) 0.7 Lymph # (Auto) 3.2 [place] # (Auto) 0.7 Eos # (Auto) 0.1 Baso # (Auto) 0.1 Abs Immat Gran (auto) 0.03 Absolute Neuts (auto) 3.6 Absolute Nucleated RBC 0.000 Nucleated RBC % (auto) 0.0 Sodium 139 Potassium 3.4 Chloride 109 H Carbon Dioxide 20 L Anion Gap 13 BUN 17 H Creatinine 3.20 H Estim Creat Clear Calc 37.6 Estimated GFR 16 POC Glucose Random Glucose 181 H Calcium 8.0 L Total Bilirubin Direct Bilirubin AST ALT Alkaline Phosphatase Troponin I High Sens 41.0 H* Total Protein Albumin Lipase COVID-19 ([facility]) COVID-19 Clin Com 11/22/20 07:28 WBC RBC Hgb Hct MCV MCH MCHC RDW Plt Count MPV Immature Gran % (Auto) Neut % (Auto) Lymph % (Auto) [place] % (Auto) Eos % (Auto) Baso % (Auto) Lymph # (Auto) [place] # (Auto) Eos # (Auto) Baso # (Auto) Abs Immat Gran (auto) Absolute Neuts (auto) Absolute Nucleated RBC Nucleated RBC % (auto) Sodium Potassium Chloride Carbon Dioxide Anion Gap BUN Creatinine Estim Creat Clear Calc Estimated GFR POC Glucose 166 H Random Glucose Calcium Total Bilirubin Direct Bilirubin AST ALT Alkaline Phosphatase Troponin I High Sens Total Protein Albumin Lipase COVID-19 ([facility]) COVID-19 Clin Com <Isa Up NP - Last Filed: 11/22/20 09:45> Discharge Plan Discharge Anticipated Discharge Date/Time: 11/22/20 09:39 <Isa Up NP - Last Filed: 11/22/20 09:45> Patient Disposition: Left Against Medical Advice <Isa Up NP - Last Filed: 11/22/20 09:45> Discharge Diagnosis: Hypertensive urgency <Isa Up NP - Last Filed: 11/22/20 09:45> Hypertensive urgency <Ken Rodgers MD - Last Filed: 11/23/20 16:08> Referrals: Medina Ren NP [Primary Care Provider] - 1 Week <Isa Up NP - Last Filed: 11/22/20 09:45> Discharge Medications: No Action insulin lispro [Humalog U-100 Insulin] 100 unit/mL solution 4 unit subcut TID Qty: 100 RF: 2 omeprazole 40 mg capsule,delayed release(DR/EC) 40 mg PO DAILY Qty: 30 RF: 2 atorvastatin 40 mg tablet 40 mg PO BEDTIME 90 Days Qty: 90 RF: 1 (DME) Aerochamber MV Spacer See Rx Instructions .ROUTE .MEDSUPPLY Qty: 1 RF: 0 furosemide [Lasix] 20 mg tablet 20 mg PO DAILY 90 Days Qty: 90 RF: 1 Lantus U-100 Insulin 100 unit/mL solution 26 unit subcut BID 30 Days Qty: 15.6 RF: 4 (DME) BD Insulin Syringe (half unit) 0.3 mL 31 gauge x 5/16 syringe See Rx Instructions .ROUTE .MEDSUPPLY Qty: 100 RF: 3 metoclopramide HCl [Reglan] 10 mg tablet 10 mg PO QIDACHS PRN (Reason: nausea and vomiting) 30 Days Qty: 120 RF: 2 albuterol sulfate 90 mcg/actuation HFA aerosol inhaler 2 puff inhalation Q4-6H PRN (Reason: shortness of breath or wheezing) Qty: 8.5 RF: 5 duloxetine 60 mg capsule,delayed release(DR/EC) 120 mg PO DAILY Qty: 180 RF: 1 montelukast [Singulair] 10 mg tablet 10 mg PO BEDTIME 90 Days Qty: 90 RF: 1 clonazepam 0.5 mg tablet 1 tab PO BID RF: 0 amlodipine 5 mg tablet 2 tab PO DAILY RF: 0 trazodone 150 mg tablet 1 tab PO BEDTIME RF: 0 losartan 100 mg tablet 1 tab PO DAILY RF: 0 bupropion HCl 300 mg tablet extended release 24 hr 1 tab PO QAM RF: 0 <Isa Up NP - Last Filed: 11/22/20 09:45> Discharge Orders: Discharge Order (Routine); Ordered 11/22/20 Ordered By: Isa Up <Isa pU NP - Last Filed: 11/22/20 09:45> Diet: advance to usual diet <Isa Up NP - Last Filed: 11/22/20 09:45> advance to usual diet <Ken Rodgers MD - Last Filed: 11/23/20 16:08> Activity on Discharge: As tolerated <Isa Up NP - Last Filed: 11/22/20 09:45> As tolerated <Ken Rodgers MD - Last Filed: 11/23/20 16:08> Care Plan Goals: Better control of blood pressure <Isa Up NP - Last Filed: 11/22/20 09:45> Health Concerns: hypertensive urgency diabetic gastroparesis <Isa Up NP - Last Filed: 11/22/20 09:45> Plan of Treatment: Patient stated that she wanted to leave as she was has high blood pressure and chronic kidney disease and wanted to have treatment for her diabetic gastroparesis. She was offered to see the child welfare manager while inpatient but declined and stated that she could see them as an outpatient. Patient will be given the names of [facility] for further followup. <Isa Up NP - Last Filed: 11/22/20 09:45> Assessment: See discharge summary <Isa Up NP - Last Filed: 11/22/20 09:45> Discharge Date/Time: 11/22/20 10:14 <Isa Up NP - Last Filed: 11/22/20 09:45>
--- NOTE | 2020-11-22 09:41 | PC.NURSE ---
Plan for pt to leave AMA
== END 2020-11-22 10:14 | disposition left against medical advice (07) ==
LOC: HO.ED 21:24 → HO.EDOVER 11-22 08:14
PROVIDERS: Admitting Provider Hospitalist; Emergency Provider Emergency Medicine Emergency Medical Services; PCP Hospitalist; Visit Provider Family Medicine
DX: I16.0 Hypertensive urgency (principal); E10.22 Type 1 diabetes mellitus with diabetic chronic kidney disease; E10.43 Type 1 diabetes mellitus with diabetic autonomic (poly)neuropathy; K31.84 Gastroparesis; I12.9 Hypertensive chronic kidney disease with stage 1 through stage 4 chronic kidney disease, or unspecified chronic kidney disease; N18.9 Chronic kidney disease, unspecified; R11.0 Nausea; R11.15 Cyclical vomiting syndrome unrelated to migraine; R10.9 Unspecified abdominal pain; E78.00 Pure hypercholesterolemia, unspecified; J45.40 Moderate persistent asthma, uncomplicated; K21.9 Gastro-esophageal reflux disease without esophagitis; R77.8 Other specified abnormalities of plasma proteins; F12.10 Cannabis abuse, uncomplicated; Z20.822 Contact with and (suspected) exposure to COVID-19; Z68.43 Body mass index [BMI] 50.0-59.9, adult; Z79.4 Long term (current) use of insulin; Z79.899 Other long term (current) drug therapy; Z53.21 Procedure and treatment not carried out due to patient leaving prior to being seen by health care provider
CPT/HCPCS: 36415; 80048; 80053; 80076; 82248; 82947; 83690; 84484; 85025; 87635; 93005; 96361; 96374; 96375; 99219; 99285; 99291; J1170; J2060; J2765

== ENCOUNTER → 2021-02-15 15:32 | Outpatient (BNVA) | payer MEDICARE, MEDICAID, SELFPAY | PROVIDERS: PCP Hospitalist; Referring Provider Hospitalist; Visit Provider Internal Medicine Gastroenterology | DX: E10.43 Type 1 diabetes mellitus with diabetic autonomic (poly)neuropathy (principal); E10.22 Type 1 diabetes mellitus with diabetic chronic kidney disease; I12.9 Hypertensive chronic kidney disease with stage 1 through stage 4 chronic kidney disease, or unspecified chronic kidney disease; N18.9 Chronic kidney disease, unspecified; E78.00 Pure hypercholesterolemia, unspecified; R11.15 Cyclical vomiting syndrome unrelated to migraine; J45.40 Moderate persistent asthma, uncomplicated; Z79.4 Long term (current) use of insulin; Z79.899 Other long term (current) drug therapy | CPT/HCPCS: 99202 ==

== ENCOUNTER → 2021-07-27 14:26 | Outpatient (BNVA) | payer MEDICARE, MEDICAID, SELFPAY | PROVIDERS: Visit Provider Nurse Practitioner Gerontology | DX: E10.65 Type 1 diabetes mellitus with hyperglycemia (principal); E10.22 Type 1 diabetes mellitus with diabetic chronic kidney disease; I12.9 Hypertensive chronic kidney disease with stage 1 through stage 4 chronic kidney disease, or unspecified chronic kidney disease; N18.6 End stage renal disease; E04.9 Nontoxic goiter, unspecified; E78.00 Pure hypercholesterolemia, unspecified; Z99.2 Dependence on renal dialysis | CPT/HCPCS: 82947; 83036; 99212 ==

== ENCOUNTER 2022-08-18 11:01 | Outpatient (REF) | payer OTHER, SELFPAY | END 2022-08-18 11:02 | disposition home or self-care (01) | LOC: HO.MRI 11:01 | PROVIDERS: PCP Hospitalist; Visit Provider Hospitalist | DX: Z13.89 Encounter for screening for other disorder (principal) ==

== ENCOUNTER 2022-08-31 15:27 | Emergency (ER) | payer OTHER, SELFPAY ==
[2022-08-31 16:01] VITALS: BP 129/51; BP 156/75; PULSE 56; PULSE 74; RESP 18; TEMP 36.6; O2SAT 97; BMI 50.5
--- NOTE | 2022-08-31 16:07 | ED.GENADULT ---
HPI - General Adult General Chief complaint: General Medical Stated complaint: lower back pain Time Seen by Provider: 08/31/22 16:07 Source: patient and EMS Mode of arrival: EMS Limitations: no limitations History of Present Illness HPI narrative: 42-year-old female presents via EMS for osteomyelitis of the spine. She was called by her primary care provider who ordered the MRI due to her ongoing lower extremity weakness and changes in sensation. Onset (ago): day(s) Location: back Radiation: extremity Severity: moderate Severity scale (1-10): 7 Quality: other (Tingling, spasming) Pain Consistency: constant and intermittent Relieving factors: none Exacerbating factors: movement Associated symptoms: malaise Related Data Home Medications Medication Instructions Recorded Confirmed losartan 100 mg tablet 1 tab PO DAILY 11/21/20 08/01/22 sevelamer carbonate 800 mg tablet 800 mg PO TID 07/27/21 08/01/22 ergocalciferol (vitamin D2) 1,250 1,250 mcg PO QWEEK 10/18/21 08/01/22 mcg (50,000 unit) capsule metolazone 2.5 mg tablet 2.5 mg PO 3XW 02/09/22 08/01/22 torsemide 100 mg tablet 100 mg PO DAILY 02/09/22 08/01/22 verapamil 120 mg tablet,extended 120 mg PO DAILY 02/09/22 08/01/22 release Previous Rx's Medication Instructions Recorded furosemide 20 mg tablet (Lasix) 20 mg PO DAILY 3 months #90 tabs 04/20/20 metoclopramide HCl 5 mg tablet 5 mg PO QIDACHS PRN nausea and 12/08/20 vomiting 1 month #120 tabs hydralazine 10 mg tablet 10 mg PO TID #90 tabs 01/16/21 ondansetron 4 mg disintegrating 4 mg PO Q8H #90 tabs 02/15/21 tablet miscellaneous medical supply See Rx Instructions miscellaneous 05/24/21 .COMPLEX 12 months #1 ea pen needle, diabetic 32 gauge x #125 ea 07/27/21 (BD Ultra-Fine Esperanza Pen Needle) duloxetine 60 mg capsule,delayed 120 mg PO DAILY #180 caps 08/25/21 release bupropion HCl 300 mg 24 hr tablet, 300 mg PO QAM #30 tabs 04/22/22 extended release atorvastatin 40 mg tablet 40 mg PO BEDTIME #90 tabs 10/12/21 insulin syringe-needle U-100 0.3 ##100 10/12/21 mL 31 gauge x 5/16 (BD Insulin Syringe Ultra-Fine) montelukast 10 mg tablet 10 mg PO BEDTIME #90 tabs 10/12/21 omeprazole 40 mg capsule,delayed 40 mg PO QAM #90 caps 10/12/21 release dicyclomine 10 mg capsule 10 mg PO BID PRN spasms of the 10/18/21 abdomen #60 caps lactulose 10 gram/15 mL oral 20 g (30 mL) PO BID PRN 10/18/21 solution constipation 1 month #473 mL naloxone 4 mg/actuation nasal 4 mg intranasal Q2M PRN opioid 11/08/21 spray (Narcan) overdose #2 ea amlodipine 10 mg tablet 10 mg PO DAILY #90 tabs 11/22/21 trazodone 150 mg tablet 150 mg PO BEDTIME #90 tabs 11/22/21 insulin glargine 100 unit/mL 26 unit (0.26 mL) subcut BID #20 mL 01/23/22 subcutaneous solution (Lantus U-100 Insulin) inhalational spacing device #1 ea 02/07/22 (Aerochamber MV spacer) Humalog U-100 Insulin 100 unit/mL 4 - 14 unit (0.04 - 0.14 mL) 04/17/22 subcutaneous solution (insulin subcut TID #10 mL lispro) insulin degludec 200 unit/mL (3 40 unit (0.2 mL) subcut DAILY 30 07/05/22 mL) subcutaneous pen (Tresiba days #6 mL FlexTouch U-200 insulin) clonazepam 0.5 mg tablet 0.5 mg PO BID PRN anxiety #56 tabs 08/02/22 albuterol sulfate 90 mcg/actuation 2 puff PO Q4H PRN for wheezing 1 08/15/22 aerosol inhaler (Ventolin HFA) month #8.5 grams hydromorphone 2 mg tablet See Rx Instructions PO Q6H PRN 08/15/22 (Dilaudid) pain 28 days #168 tabs Allergies Allergy/AdvReac Type Severity Reaction Status Date / Time No Known Allergies Allergy Verified 08/31/22 12:59 [No Known Allergies*] Review of Systems Review of Systems: Constitutional: No Fever, No Chills Cardiovascular: No Chest Pain, No SOB Respiratory: No Cough, No Dyspnea Gastrointestinal: No Nausea, No Vomiting, No Diarrhea, No abdominal Pain Genitourinary: No Dysuria, No Hematuria Musculoskeletal: positive back pain, No Myalgias, No Joint Swelling Skin: No Skin lacerations, No rash Neuro: Positive Weakness, positive Numbness, positive Paresthesias, No Loss of Consciousness, No Dizziness, No Headache Yes all other systems are reviewed and are negative [facility] Past Medical History Attestation statement: The following information was validated with the patient. Source: old records reviewed Medical History Chronic GERD Controlled type 1 diabetes mellitus with kidney complication, with long-term current use of insulin Cyclic vomiting syndrome Diabetes mellitus type 1, uncontrolled Gastroparesis High cholesterol Hypertension, essential Moderate persistent asthma, uncomplicated Surgical History AVF (arteriovenous fistula) Previous back surgery Family History Family History Father Diabetes Paternal Grandfather Diabetes Mother No known problems Social History Social History Housing: Apartment Alcohol intake: unknown Patient Tobacco Use Status: Former Tobacco user Smoked in Last 30 Days: No e-Cigarette/Vaping Use: Never Used Second Hand Smoke Exposure: No Substance Use Type: Marijuana Advance Directives: Yes Advance Directives on File: Yes Advance Directives Date on File: 08/31/22 service: No Current occupational status: disabled Current occupational exposures/hazards: No Cognitive needs: No Hearing needs: No Vision needs: No Physical Exam ED Vital Signs: Vital Signs - 24 hr 08/31/22 16:01 08/31/22 17:50 Temperature 97.8 F 98.4 F Pulse Rate 74 73 Respiratory Rate 18 16 Blood Pressure 156/75 H 151/68 H Pulse Oximetry 97 97 Oxygen Delivery Method Room Air Room Air BMI result Body Mass Index 50.5 Appearance: Alert. Oriented X3. Moderate distress. Eyes: Pupils equal, round and reactive to light. ENT: Pharynx normal. Neck: Normal inspection. Neck supple. CVS: Normal heart rate and rhythm. Pulses normal. Respiratory: No respiratory distress. Breath sounds normal. Skin: Skin warm and dry. Normal skin color. Normal skin turgor. Extremities: Range of motion exam limited. Cauda equina per baseline. Neuro: No motor deficit. No sensory deficit. Cranial nerves 2-12 intact. Course Course Course Narrative: 42-year-old female with past medical history of cauda equina, L3-L4 L4-L5 diskectomies, hypertension, diabetes type 1 with home dialysis treatment, gastroparesis, chronic kidney disease, has an AV fistula in the left side, chest wall port to the right, presents for MRI indicative of osteomyelitis. Patient has chronic back issues, has multiple bulging discs and herniations, and was evaluated by her primary care physician for worsening lower extremity numbness, weakness, paresthesia, and worsening bowel and bladder incontinence. The impression of the MRI L4-L5 there is with robust about MP some paravertebral psoas edema inflammation. Although these findings could be degenerative early discitis osteomyelitis could have a similar appearance. Spondylitic changes results in right more than left subarticular stenosis and [id number] right and mild left neural foraminal stenosis. Based on the MRI findings, will treat for osteomyelitis with vancomycin, ceftriaxone, patient is intolerant to morphine, will give Dilaudid for pain, and Zofran for nausea vomiting. Will order labs, cultures, and lactic acid. Patient is able to void, will give fluids with antibiotics. I do expect this patient's lab value to be consistent with patient on dialysis. Patient's last dialysis treatment 2 days ago, and only had 1 treatment this week due to her inability sit for long periods of time due to her lower back pain. 17:30 discussion with hospitalist regarding osteomyelitis finding on MRI, hospitalist feels this patient requires transfer as we do not have neurosurgery here, and this patient may require emergent neurological intervention if her symptoms worsen. Considering that patient has cauda equina symptoms have progressively worsened over the past few days, patient is at imminent risk of limb threatening injury and paralysis. 17:45 discussion with [facility]. [facility] is closed to all transfers. Will consult with Neurosurgery. 17:59 discussion with on-call Neurosurgery Dr. Matthews at [facility], MRI read to the MD by this SENIOR VICE PRESIDENT, considering that there was no noted abscess, patient is not an immediate surgical candidate and will not be accepted to [facility] as they were closed all transfers. 18:04 [facility] closed to all transfers. 18:20 discussion with [facility], plan of care is to transfer ED to ED, excepting physician Dr. Gaurang Redding. I did discuss this with the patient, who is very pleased that we were able to get her transferred to a facility that has Neurosurgery. 19:22 measurements completed, widest is 67.5 cm, depth 35 cm, patient will be able to fit into the MRI machine at [facility]. Patient has has a normal response to clonus reflex to the left lower extremity, great toe points medially within internal rotation. Clonus reflex to the right lower extremity abnormal. No flexion noted. Consultations Consultation #1: Jack Time: 17:20 Medications Administered Discontinued Medications Generic Name Dose Route Start Last Admin Trade Name Freq PRN Reason Stop Dose Admin Hydromorphone HCl 1 mg 08/31/22 17:15 08/31/22 17:33 Hydromorphone Hcl 1 Mg/Ml Syringe IVPUSH 08/31/22 17:16 1 mg ONCE ONE Administration Protocol Vancomycin HCl 2,000 mg in 520 mls @ 260 mls/hr 08/31/22 16:16 08/31/22 17:34 Vancomycin/Ns IV 08/31/22 18:15 Not Given ONCE ONE Ceftriaxone Sodium 1 gm/ 50 mls @ 100 mls/hr 08/31/22 16:16 08/31/22 17:40 Sodium Chloride IV 08/31/22 16:45 Infused ONCE ONE Infusion Sodium Chloride 1,000 mls @ 999 mls/hr 08/31/22 16:30 08/31/22 17:11 Ns IVCONT 08/31/22 17:30 999 mls/hr .Q1H1M CRIS Administration Vancomycin HCl 2,000 mg in 520 mls @ 260 mls/hr 08/31/22 16:30 08/31/22 17:44 Vancomycin/Ns IV 08/31/22 18:29 260 mls/hr ONCE ONE Administration Ondansetron HCl 4 mg 08/31/22 17:15 08/31/22 17:33 Ondansetron Hcl 4 Mg/2 Ml Vial IVPUSH 08/31/22 17:16 4 mg ONCE ONE Administration Medical Decision Making Differential Diagnosis Differential Diagnoses: The differential diagnosis associated with the presentation includes Osteomyelitis, cellulitis, edema Admission/Observation Consideration of admission/observation: Escalation of care including admission/observation considered This patient requires admission Consult Healthcare Provider Management of the patient was discussed with: Hospitalist and Pan Puller [facility] neurosurgery consult telephone Lab Data MDM Lab Attestation statement: I reviewed the patient's lab results. 08/31/22 16:45 08/31/22 16:45 Labs: Lab Results 08/31/22 08/31/22 08/31/22 Range/Units 16:45 16:45 16:45 WBC 9.0 (4.8-10.8) X10*3/uL RBC 3.31 L (4.20-5.50) X10*6/uL Hgb 9.0 L (12.0-16.0) g/dl Hct 27.9 L (37.0-47.0) % MCV 84.3 (80.0-98.0) fL MCH 27.2 (27.0-33.0) pg MCHC 32.3 (31.0-35.0) g/dl RDW 14.8 (11.0-16.0) % Plt Count 291 (160-400) X10*3/uL MPV 10.1 (9.4-12.3) fL Immature Gran % (Auto) 0.3 (0.0-0.4) % Neut % (Auto) 75.9 H (45-73) % Lymph % (Auto) 14.4 L (20-40) % Saunders % (Auto) 5.7 (2-11) % Eos % (Auto) 3.3 (0-4) % Baso % (Auto) 0.4 (0-2) % Lymph # (Auto) 1.3 (1.2-4.9) X10*3/uL Saunders # (Auto) 0.5 (0.1-1.2) X10*3/uL Eos # (Auto) 0.3 (0.0-0.4) X10*3/uL Baso # (Auto) 0.0 (0.0-0.2) X10*3/uL Abs Immat Gran (auto) 0.03 (0.00-0.03) X10*3/uL Absolute Neuts (auto) 6.8 (2.0-8.3) x10*3/uL Absolute Nucleated RBC 0.000 (0.0-0.012) X10*3/uL Nucleated RBC % (auto) 0.0 (0.0-0.2) /100WBC PT 11.9 (10.0-13.1) SEC INR 1.0 (0.9-1.1) APTT 31.8 (26.0-36.4) SEC POC Glucose (60-115) mg/dL Lactic Acid 0.7 (0.5-2.0) mmol/L Influenza Type A (PCR) (Negative) Influenza Type B (PCR) (Negative) RSV RNA Qual (PCR) (Negative) SARS-CoV-2 RNA (RT-PCR) (Negative) 08/31/22 08/31/22 Range/Units 16:48 17:44 WBC (4.8-10.8) X10*3/uL RBC (4.20-5.50) X10*6/uL Hgb (12.0-16.0) g/dl Hct (37.0-47.0) % MCV (80.0-98.0) fL MCH (27.0-33.0) pg MCHC (31.0-35.0) g/dl RDW (11.0-16.0) % Plt Count (160-400) X10*3/uL MPV (9.4-12.3) fL Immature Gran % (Auto) (0.0-0.4) % Neut % (Auto) (45-73) % Lymph % (Auto) (20-40) % Saunders % (Auto) (2-11) % Eos % (Auto) (0-4) % Baso % (Auto) (0-2) % Lymph # (Auto) (1.2-4.9) X10*3/uL Saunders # (Auto) (0.1-1.2) X10*3/uL Eos # (Auto) (0.0-0.4) X10*3/uL Baso # (Auto) (0.0-0.2) X10*3/uL Abs Immat Gran (auto) (0.00-0.03) X10*3/uL Absolute Neuts (auto) (2.0-8.3) x10*3/uL Absolute Nucleated RBC (0.0-0.012) X10*3/uL Nucleated RBC % (auto) (0.0-0.2) /100WBC PT (10.0-13.1) SEC INR (0.9-1.1) APTT (26.0-36.4) SEC POC Glucose 245 H (60-115) mg/dL Lactic Acid (0.5-2.0) mmol/L Influenza Type A (PCR) NEGATIVE (Negative) Influenza Type B (PCR) NEGATIVE (Negative) RSV RNA Qual (PCR) NEGATIVE (Negative) SARS-CoV-2 RNA (RT-PCR) NEGATIVE (Negative) Radiology Impression Radiologist Impression: MRI dictation provided by outside facility External Record Review External record reviewed: Inpatient record, Outpatient record, Prior outpatient labs and Prior outpatient radiology Prescription Management I considered prescription management with: Pain Medication and Antibiotic Chronic Conditions Patient?s care impacted by: Diabetes and Hypertension Social Determinants Patient?s care significantly limited by Social Determinants of Health including: Other Social Determinant of Health Discharge Plan Discharge Clinical Impression: Cauda equina syndrome, Osteomyelitis Patient Disposition: [facility] Transfer Details: [facility], accepting physician Dr. Gaurang Redding Prescriptions: No Action furosemide [Lasix] 20 mg tablet 20 mg PO DAILY 90 Days Qty: 90 1RF metoclopramide HCl 5 mg tablet 5 mg PO QIDACHS PRN (Reason: nausea and vomiting) 30 Days Qty: 120 2RF hydralazine 10 mg tablet 10 mg PO TID Qty: 90 1RF miscellaneous medical supply Misc See Rx Instructions miscellaneous .COMPLEX 360 Days Qty: 1 0RF Rx Instructions: wheel chair miscellaneous; duloxetine 60 mg capsule,delayed release(DR/EC) 120 mg PO DAILY Qty: 180 3RF bupropion HCl 300 mg tablet extended release 24 hr 300 mg PO QAM Qty: 30 5RF montelukast 10 mg tablet 10 mg PO BEDTIME Qty: 90 3RF atorvastatin 40 mg tablet 40 mg PO BEDTIME Qty: 90 3RF omeprazole 40 mg capsule,delayed release(DR/EC) 40 mg PO QAM Qty: 90 3RF (DME) insulin syringe-needle U-100 [BD Insulin Syringe Ultra-Fine] 0.3 mL 31 gauge x 5/16 syringe See Rx Instructions .ROUTE .COMPLEX Qty: 100 5RF Dose Instruction: USE 3 TIMES A DAY Rx Instructions: USE 3 TIMES A DAY naloxone [Narcan] 4 mg/actuation spray,non-aerosol 4 mg intranasal Q2M PRN (Reason: opioid overdose) Qty: 2 2RF Rx Instructions: spray 1 dose into ONE nostril; alternate nostrils w each dose until help arrives insulin glargine [Lantus U-100 Insulin] 100 unit/mL solution 26 unit subcut BID Qty: 20 11RF (DME) Aerochamber MV Spacer See Rx Instructions .ROUTE .MEDSUPPLY Qty: 1 0RF Rx Instructions: As directed insulin lispro [Humalog U-100 Insulin] 100 unit/mL solution 4 - 14 unit subcut TID Qty: 10 4RF insulin degludec [Tresiba FlexTouch U-200] 200 unit/mL (3 mL) insulin pen 40 unit subcut DAILY 30 Days Qty: 6 6RF clonazepam 0.5 mg tablet 0.5 mg PO BID PRN (Reason: anxiety) Qty: 56 0RF hydromorphone [Dilaudid] 2 mg tablet See Rx Instructions PO Q6H MDD 12 mg or 6 tabs PRN (Reason: pain) 28 Days Qty: 168 0RF Rx Instructions: orally every 6 hours PRN; pt to take one tab for moderate pain up to 7 over 10 and then take two or 4 mg for severe pain that is > 8 over 10 albuterol sulfate [Ventolin HFA] 90 mcg/actuation HFA aerosol inhaler 2 puff PO Q4H PRN (Reason: for wheezing) 30 Days Qty: 8.5 8RF losartan 100 mg tablet 1 tab PO DAILY ergocalciferol (vitamin D2) 1,250 mcg (50,000 unit) capsule 1,250 mcg PO QWEEK dicyclomine 10 mg capsule 10 mg PO BID PRN (Reason: spasms of the abdomen) Qty: 60 5RF lactulose 10 gram/15 mL solution 20 g PO BID PRN (Reason: constipation) 30 Days Qty: 473 5RF amlodipine 10 mg tablet 10 mg PO DAILY Qty: 90 3RF trazodone 150 mg tablet 150 mg PO BEDTIME Qty: 90 3RF metolazone 2.5 mg tablet 2.5 mg PO 3XW verapamil 120 mg tablet extended release 120 mg PO DAILY torsemide 100 mg tablet 100 mg PO DAILY sevelamer carbonate 800 mg tablet 800 mg PO TID (DME) pen needle, diabetic [BD Ultra-Fine Esperanza Pen Needle] 32 gauge x needle See Rx Instructions .ROUTE .MEDSUPPLY Qty: 125 11RF Rx Instructions: As directed four times a day ondansetron 4 mg tablet,disintegrating 4 mg PO Q8H Qty: 90 0RF
[2022-08-31 16:59] LABS: MANUAL DIFF FLAG NO
[2022-08-31 17:03] LABS: Basophils Percent Auto 0.4 % (0-2); Eosinophils Absolute Auto 0.3 X10*3/uL (0.0-0.4); Eosinophils Percent Auto 3.3 % (0-4); Hematocrit 27.9 % (37.0-47.0); Imm Gran Abs Auto 0.03 X10*3/uL (0.00-0.03); Imm Gran Pct Auto 0.3 % (0.0-0.4); Lymphocytes Absolute Auto 1.3 X10*3/uL (1.2-4.9); Lymphocytes Percent Auto 14.4 % (20-40); Mean Corpuscular HGB Conc 32.3 g/dl (31.0-35.0); Mean Corpuscular Hemoglobin 27.2 pg (27.0-33.0); Mean Corpuscular Volume 84.3 fL (80.0-98.0); Mean Platelet Volume 10.1 fL (9.4-12.3); Monocytes Absolute Auto 0.5 X10*3/uL (0.1-1.2); Monocytes Percent Auto 5.7 % (2-11); Neutrophils Absolute Auto 6.8 x10*3/uL (2.0-8.3); Neutrophils Percent Auto 75.9 % (45-73); Platelet Count 291 X10*3/uL (160-400); Red Blood Count 3.31 X10*6/uL (4.20-5.50); Red Cell Distribution Width 14.8 % (11.0-16.0)
[2022-08-31 17:08] LABS: Prothrombin Time 11.9 SEC (10.0-13.1)
[2022-08-31 17:11] LABS: Partial Thromboplastin Time 31.8 SEC (26.0-36.4)
[2022-08-31] MEDS: cefTRIAXone sodium 1 GM in 0.9 % Sodium Chloride 50 ML IV (17:11)
[2022-08-31] MEDS: 0.9 % Sodium Chloride 1,000 ML 999 ML IVCONT (17:11)
[2022-08-31 17:16] LABS: Lactic Acid 0.7 mmol/L (0.5-2.0)
[2022-08-31] MEDS: HYDROmorphone HCl 1 MG/ML SYRINGE IVPUSH ×2 (17:33→19:36)
[2022-08-31] MEDS: ondansetron HCL 4 MG/2 ML VIAL IVPUSH (17:33)
--- NOTE | 2022-08-31 17:38 | PC.NURSE ---
Verified vancomycin with pharmacy, patient able to stand pivot up to commode tolerating IVF and IV ABX
[2022-08-31 17:41] LABS: Influenza A PCR NEGATIVE (Negative); Influenza B PCR NEGATIVE (Negative); Resp Syncy Virus RNA Qual PCR NEGATIVE (Negative); SARS COV2 PCR INHOUSE NEGATIVE (Negative)
[2022-08-31 17:50] VITALS: BP 151/68; PULSE 73; RESP 16; TEMP 36.9; O2SAT 97
--- NOTE | 2022-08-31 17:51 | MHC.EDTECH ---
1800 rounding done ,vitals sign taken ,blood sugar taken ,pt friend at bed side .
[2022-08-31 17:58] LABS: Glucose, Whole Blood 245 mg/dL (60-115)
--- NOTE | 2022-08-31 18:07 | MHC.EDTECH ---
provider request a tranfer for pt for Osteomylitis of the spine. marco and joshua menchaca declined the pt
--- NOTE | 2022-08-31 18:15 | PC.NURSE ---
Significant other at bedside will CTM
--- NOTE | 2022-08-31 18:32 | PC.NURSE ---
Report called to [facility] ED transfer line, will prepare for transfer.
--- NOTE | 2022-09-02 04:01 | PC.NURSE ---
T/c received from the lab with critical results for BC grew gram positive cocci in clusters.
--- NOTE | 2022-09-02 04:05 | PC.NURSE ---
This RN contacted [facility], spoke to Liliane, informed her of positive BC for gram + cocci in clusters in 1 st set. Liliane verbalized understanding and will document results in patient's chart and inform provider.
== END 2022-08-31 19:41 | disposition short-term general hospital (02) ==
PROVIDERS: Nurse Practitioner Family; Emergency Provider Emergency Medicine; PCP Hospitalist
DX: G83.4 Cauda equina syndrome (principal); M46.26 Osteomyelitis of vertebra, lumbar region; Z20.822 Contact with and (suspected) exposure to COVID-19; Z20.828 Contact with and (suspected) exposure to other viral communicable diseases; E10.22 Type 1 diabetes mellitus with diabetic chronic kidney disease; I12.9 Hypertensive chronic kidney disease with stage 1 through stage 4 chronic kidney disease, or unspecified chronic kidney disease; N18.4 Chronic kidney disease, stage 4 (severe); Z99.2 Dependence on renal dialysis; E78.5 Hyperlipidemia, unspecified; Z79.899 Other long term (current) drug therapy; Z79.02 Long term (current) use of antithrombotics/antiplatelets; Z79.4 Long term (current) use of insulin
CPT/HCPCS: 0241U; 80048; 80076; 82947; 83605; 83690; 85025; 85610; 85730; 87040; 87147; 87186; 87205; 96365; 96375; 96376; 99285; J0696; J1170; J2405; J3370

== ENCOUNTER 2023-07-25 11:10 | Outpatient (AMB) | payer OTHER, SELFPAY ==
--- NOTE | 2023-07-25 11:21 | MHC.PC.OV ---
Vital Signs 07/25/23 11:25 Height 5 ft 6 in Weight 298 lb 4.567 oz BMI 48.1 BP 158/74 H Blood Pressure Location Rt brachial Position Sitting Pulse 64 Pulse Source Pulse Oximeter Pulse Oximetry (%) 97 Oxygen Delivery Method Room Air Intake Visit Reasons: velma from ena Allergies No Known Allergies [No Known Allergies*] Allergy (Verified 07/25/23 12:02) Medication List - Last Reconciled 07/25/23 by Cat Crowder [employer]UTIONS SALES CONSULTANT- albuterol sulfate 90 mcg/actuation (Ventolin HFA) 2 puffs PO Q4H PRN 1 month amlodipine 10 mg PO DAILY atenolol 50 mg PO DAILY atorvastatin 40 mg PO BEDTIME blood sugar diagnostic (NacuiiStyle Lite Strips) Use to check blood sugar 4 times daily, before mealtimes and bedtime. blood-glucose meter (FreeStyle Lite Meter kit) Use to check blood sugar 4 times daily, before mealtimes and bedtime. clonazepam 0.5 mg PO BID cyclobenzaprine 10 mg (2 x 5 mg) PO TID PRN 7 days ergocalciferol (vitamin D2) 1,250 mcg PO QWEEK flash glucose scanning reader (NacuiiStyle Fan 14 Day Bruni) As directed flash glucose sensor (FreeStyle Fan 14 Day Sensor kit) As directed inhalational spacing device (Aerochamber MV spacer) As directed insulin aspart U-100 (Novolog FlexPen U-100 Insulin aspart) 1 sliding scale dose subcut USEASDIRECTD insulin degludec (Tresiba FlexTouch U-200 insulin) 40 units (0.2 mL) subcut DAILY 30 days insulin syringe-needle U-100 (BD Insulin Syringe Ultra-Fine) USE 3 TIMES A DAY lancets (FreeStyle Lancets) Use to check blood sugar 4 times daily, before mealtimes and bedtime. losartan 1 tab PO DAILY miscellaneous medical supply wheel chair miscellaneous; 12 months montelukast 10 mg PO BEDTIME naloxone 4 mg/actuation (Narcan) 4 mg intranasal Q2M PRN omeprazole 40 mg PO QAM pen needle, diabetic (BD Ultra-Fine Esperanza Pen Needle) As directed four times a day sevelamer carbonate 800 mg PO TID trazodone 150 mg PO BEDTIME Tobacco use date assessed: 07/25/23 Dental Screening Dental Screen Date: 07/25/23 Did you have a dental visit in the last 12 months?: Yes Did you have a dental problem in the last 6 months where you did not have access to dental care?: No Was dental information given to patient?: Patient has dentist HPI HPI Comments History of Present Illness Details 42-year-old female with type 1 diabetes with micro and Macrovascular complications, hypertension, bipolar disease, anxiety disorder with agoraphobia, binge eating disorder hyperlipidemia, moderate persistent asthma chronic back pain, gastroparesis, end-stage renal disease on hemodialysis/diabetic nephropathy, secondary hyperparathyroidism, benign adenoma Left adrenal nodule 1 x 2 cm osteomyelitis of the spine August 2022, cauda equina, L3-L4 space L4-L5 diskectomies, chronic GERD, anemia of chronic disease, diverticulosis of the colon, umbilical hernia Specialist: [facility] for gastroparesis - no longer follows w/ them Renal for end-stage renal disease on dialysis [facility] endocrinology for her diabetes > reports never managed there. Referral placed today Optho - fell out of care w/ last MD d/t insurance change, needs new referral. Placed today. Health maintenance: Diabetic eye exam 03/01/2022 [facility] negative for diabetic retinopathy Mammogram: declined Hga1c: 8.8% done today in office. Increase from 1 year ago. DM - she reports she has not been testing her blood glucose over the last 2 weeks. When I inquired more she said it was because she did not have the supplies that she needed. I reviewed her med list with her to see if it was the CGM equipment that she needed or the glucometer equipment she became angered. She reports she is never used to see CGM and she does not know why I am saying that. I just let her know that I could see a prescription was sent into her pharmacy in April of 2023. I removed this from her medication list. She says that she has not been able to get her glucometer equipment refilled due to prescribing errors. I can not see any record of this however I will place a referral to the nurse navigator to look into this further and see what needs to be sent to her pharmacy for her so that she can manage her blood sugars at home. I have placed a referral to endocrinology today to help manage her complex diabetes. c/o chronic pain due to polyneuropathy and gastroparesis along with spinal disease. She was managed by her previous primary care provider with Dilaudid. WORKPLACE REHABILITATION OFFICER was reviewed today. She filled a script for oxycodone 20 tablets on the 07 of July and 42 tablets Dilaudid 4 mg on the 01 of July. The script prior to this was 460 tablets 06/06/2023. She tells me she has been w/o dilaudid since 07/10/23. states cannot walk in last 2 weeks due to her pain and that is why she has in a wheelchair today. has not been managed by pain mgmt in the past; willing to have this referral placed. She also mentions that she has not followed through on her medical care as she has had several traumatic experiences happened to her over the last few weeks. When I asked her if she want to elaborate or share so that I could offer help and assistance she laughed and said absolutely not. I did remind her of the behavioral health services we could offer should she feel she needs this. [facility] Medical History (Updated 07/27/23 @ 16:02 by Cat Crowder, [facility]) Abnormal abdominal MRI Hearing loss in right ear Hearing loss in left ear RSV infection Hypertensive urgency Diabetes mellitus type 1, uncontrolled Gastroparesis Moderate persistent asthma, uncomplicated Chronic GERD Cyclic vomiting syndrome Surgical History AVF (arteriovenous fistula) Previous back surgery Family History Father Diabetes Paternal Grandfather Diabetes Mother No known problems Social History Housing: Apartment Alcohol intake: unknown Patient Tobacco Use Status: Former Tobacco user e-Cigarette/Vaping Use: Never Used Second Hand Smoke Exposure: No Substance Use Type: Marijuana Advance Directives Date on File: 08/31/22 service: No Current occupational status: disabled Current occupational exposures/hazards: No Cognitive needs: No Hearing needs: No Vision needs: No Questionnaire PHQ-9 Over the last 2 weeks, how often have you been bothered by any of the following problems? 1. Little interest or pleasure in doing things: not at all 2. Feeling down, depressed, or hopeless: several days 3. Trouble falling or staying asleep, or sleeping too much: more than half the days 4. Feeling tired or having little energy: more than half the days 5. Poor appetite or overeating: nearly every day 6. Feeling bad about yourself - or that you are a failure or have let yourself or your family down: nearly every day 7. Trouble concentrating on things, such as reading the newspaper or watching television: several days 8. Moving or speaking so slowly that other people could have noticed. Or the opposite - being so fidgety or restless that you have been moving around a lot more than usual: not at all 9. Thoughts that you would be better off or of hurting yourself in some way: not at all Total score: 12 Depression Screening Interpretation: Positive Depression Screening Follow-up: Existing condition and Declines treatment Depression Screening Done: Yes 07617 - PHQ-9 Billing: Yes Source: Developed by Drs. Channing Funes, Tenisha Foley, Mohan Fagan and colleagues, with an educational francis from [employer]. Thrive Questionnaire Date Thrive assessed: 07/25/23 I am a: Patient What is your living situation today?: I have a steady place to live Within the past 12 months, did the food you bought not last and you didn't have the money to get more?: Never true Within the past 12 months, did you worry whether your food would run out before you got money to buy more?: Never true Do you have trouble paying for medicines?: No Do you have trouble getting transportation to medical appointments?: No Do you have trouble paying your heating and electricity bill?: No Do you have trouble taking care of your child, family member or friend?: No Do you have trouble with day-to-day activities such as bathing, preparing meals, shopping, managing finances, etc.?: Yes Are you currently unemployed and looking for a job?: No Are you interested in more education?: No Please select the resources that you would like help with: None Currently or been in a relationship where the following occur: no concerns reported THRIVE Score: 0 AUDIT C Alcohol Use Questionnaire (AUDIT-C) 1. How often do you have a drink containing alcohol?: Never 3. How often do you have six or more drinks on one occasion?: Never Total Score: 0 Score Reviewed/Action Taken: Yes TERRY-7 AMB Questionnaire TERRY-7 Date TERRY - 7 assessed: 07/25/23 Feeling nervous, anxious, or on edge: 0 = Not at all Not being able to stop or control worryin = More than half the days Worrying too much about different things: 0 = Not at all Trouble relaxin = More than half the days Being so restless that it is hard to sit still: 1 = Several days Becoming easily annoyed or irritable: 2 = More than half the days Feeling afraid as if something awful might happen: 3 = Nearly every day Total TERRY-7 score (0-4 normal; 5-9 mild; 10-14 moderate; 15-21 severe): 10 Source: Developed by Drs. Channing Funes, Tenisha Foley, Mohan Fagan and colleagues, with an educational francis from [employer]. TERRY-7 Assessment Billing TERRY-7 Assessment Tool: TERRY-7 Assessment 32586 Review of Systems Const All systems reviewed & are unremarkable except as noted in HPI and below Physical exam (Primary Care) Vital Signs: Last Vital Signs Pulse 64 07/25/23 11:25 BP 158/74 H 07/25/23 11:25 Pulse Ox 97 07/25/23 11:25 Oxygen Delivery Method Room Air 07/25/23 11:25 BMI result Body Mass Index 48.1 BMI Assessment/Plan discussion: High BMI High, discussed plan: lifestyle Tobacco/Smoking Status: Tobacco use Status Tobacco use date assessed 07/25/23 07/25/23 11:31 Patient Tobacco Use Status Former Tobacco user 07/25/23 11:22 e-Cigarette/Vaping Use Never Used 07/25/23 11:22 PHQ-9: PHQ-9 Score PHQ-9: Total score 12 07/25/23 16:17 Depression Screening Interpretation: Positive Depression Screening Follow-up: Existing condition and Declines treatment Thrive Assessment: Date of Thrive Assessment Date Thrive assessed 07/25/23 07/25/23 11:48 Currently or been in a relationship where the following occur: no concerns reported Const Other: here w/ Beth, her friend chronically ill appearing, sitting in w/c soft spoken, does not make eye contact, guarded and edgy with responses RRR LS CTAB, dim throughout, poor inspiratory effort Obese edema BLE - feet and lower legs not examined today Results AMB Hemoglobin A1c AMB Hemoglobin A1c 8.8 % Last Edit by Ramila Curtis MA on 07/25/23 12:22 Results Reviewed Results Reviewed: Laboratory Last Values Hgb A1c (Clinic) 8.8 % (4.0-6.0) H 07/25/23 12:21 Assessment and Plan Assessment & Plan (1) 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: Comment: Managed by renal at [facility] [place] [facility], on dialysis Code(s): E10.22 - Type 1 diabetes mellitus with diabetic chronic kidney disease Qualifiers: Chronic kidney disease stage: on chronic dialysis Qualified Code(s): E10.22 - Type 1 diabetes mellitus with diabetic chronic kidney disease; N18.6 - End stage renal disease; Z99.2 - Dependence on renal dialysis (2) 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: Comment: [facility]; Dialysis TuTa Code(s): E11.22 - Type 2 diabetes mellitus with diabetic chronic kidney disease; N18.4 - Chronic kidney disease, stage 4 (severe) (3) Chronic back pain: Code(s): M54.9 - Dorsalgia, unspecified; G89.29 - Other chronic pain Qualifiers: Back pain laterality: bilateral Back pain location: low back pain Sciatica laterality: bilateral sciatica Sciatica presence: with sciatica Qualified Code(s): M54.42 - Lumbago with sciatica, left side; M54.41 - Lumbago with sciatica, right side; G89.29 - Other chronic pain (4) Chronic pain: Comment: Chronic pain from multiple origins per record review. To include musculoskeletal as well as neuropathic related to her diabetes to include neuropathy as well as gastroparesis. She was maintained on a high dose of hydromorphone previously. However she has been without hydromorphone since 07/10/2023. WORKPLACE REHABILITATION OFFICER was reviewed she was given a prescription 07/07/2023 Oxycodone Hcl (Ir) 5 Mg Tablet #20St [id number] ([id number]) 07/01/2023 Hydromorphone 4 Mg Tablet #427daysTh [id number] ([id number]) She wishes to follow-up with another primary care provider in this office. I had a discussion with him after the visit today. As she has not been on any narcotics since the 10 of July, the decision was made not to restart any high dose narcotics. She has not showing any signs of withdrawal. She was referred to pain management for further assessment and treatment of her pain. Code(s): G89.29 - Other chronic pain Qualifiers: Chronic pain type: chronic pain syndrome Qualified Code(s): G89.4 - Chronic pain syndrome (5) Uncontrolled diabetes mellitus with hyperglycemia, with long-term current use of insulin: Comment: HGB A1c 8.8% today which is increased from last year. Unclear if she is using her medications as directed. Reports she is without a glucometer. I have asked for the nurse navigator to help me find out what is going on with this so that I can prescribe her a glucometer and supplies - this was completed today. The patient reported that she then wanted to CGM after the visit. This prescription was also sent into the pharmacy. She will follow up with the nurse navigator for instructions on how to use. I have referred her to endocrinology for further management of her complex diabetes. She has on an Arb She has on a statin Referred for diabetic eye exam She is on renal dialysis Code(s): E11.65 - Type 2 diabetes mellitus with hyperglycemia; Z79.4 - terminal operations supervisor (current) use of insulin (6) Hypertension complicating diabetes: Comment: Managed on Arb. beta-ángel and calcium channel ángel Code(s): E11.59 - Type 2 diabetes mellitus with other circulatory complications; I15.2 - Hypertension secondary to endocrine disorders (7) Hyperlipidemia due to type 1 diabetes mellitus: Comment: On statin will check labs today Code(s): E10.69 - Type 1 diabetes mellitus with other specified complication; E78.5 - Hyperlipidemia, unspecified (8) MDD (major depressive disorder): Comment: On trazodone and Klonopin managed by outside psychiatrist casey lacey. Offered with additional referrals and she declined Code(s): F32.9 - Major depressive disorder, single episode, unspecified Qualifiers: Active/Remission status: currently active Major depression episode severity: severe Major depression recurrence: recurrent Psychotic features: without psychotic features Qualified Code(s): F33.2 - Major depressive disorder, recurrent severe without psychotic features (9) TERRY (generalized anxiety disorder): Code(s): F41.1 - Generalized anxiety disorder (10) Diabetic gastroparesis associated with type 1 diabetes mellitus: Comment: Was active with Gastroenterology in the past. She has fell out of care. Code(s): E10.43 - Type 1 diabetes mellitus with diabetic autonomic (poly)neuropathy; K31.84 - Gastroparesis (11) Dependence on renal dialysis: Comment: As a result of diabetes on renal dialysis. BUN 71, creatinine 8.56, EGFR 5 Code(s): Z99.2 - Dependence on renal dialysis (12) Diabetic neuropathy associated with type 1 diabetes mellitus: Comment: Affecting multiple extremities as well as GI system as evidenced by gastroparesis Code(s): E10.40 - Type 1 diabetes mellitus with diabetic neuropathy, unspecified Qualifiers: Diabetes mellitus complication detail: diabetic polyneuropathy Qualified Code(s): E10.42 - Type 1 diabetes mellitus with diabetic polyneuropathy Plan: Total time spent caring for the patient today was 75 minutes. This includes time spent before the visit reviewing the chart, time spent during the visit, and time spent after the visit on documentation This note is constructed using voice recognition software. While every effort has been made to ensure accuracy in chief juvenile probation officer, still errors may have been included Sometimes, these errors may affect the content or meaning of the given sentence . (13) Protein calorie malnutrition: Comment: Labs done today showing a low total protein and albumin Code(s): E46 - Unspecified protein-calorie malnutrition Qualifiers: Protein-calorie malnutrition severity: mild Qualified Code(s): E44.1 - Mild protein-calorie malnutrition Orders: Orders AMB Hemoglobin A1c 07/25/23 E10.65 - Type 1 diabetes mellitus with hyperglycemia Comprehensive Met. Panel 07/25/23 E10.22 - Type 1 diabetes mellitus with diabetic chronic kidney disease LDL Cholesterol Direct 07/25/23 E10.22 - Type 1 diabetes mellitus with diabetic chronic kidney disease TSH reflex Free T4 07/25/23 E10.22 - Type 1 diabetes mellitus with diabetic chronic kidney disease Referrals Ophthalmology Referral E11.319 - Type 2 diabetes mellitus with unspecified diabetic retinopathy without macular edema Pain Management Referral G89.29 - Other chronic pain, K31.84 - Gastroparesis, M54.9 - Dorsalgia, unspecified Endocrinology Referral E10.22 - Type 1 diabetes mellitus with diabetic chronic kidney disease, E10.29 - Type 1 diabetes mellitus with other diabetic kidney complication Medications: New blood-glucose sensor (FreeStyle Fan 3 Sensor device) As directed 2 ea 11RF E11.65 - Type 2 diabetes mellitus with hyperglycemia, Z79.4 - half-way (current) use of insulin blood-glucose meter,continuous (FreeStyle Fan 3 Bruni) As directed 1 ea 0RF E11.65 - Type 2 diabetes mellitus with hyperglycemia, Z79.4 - terminal operations supervisor (current) use of insulin Discontinued flash glucose scanning reader (FreeStyle Fan 14 Day Bruni) Discontinued Reason: Patient Refused As directed 1 ea 4RF flash glucose sensor (FreeStyle Fan 14 Day Sensor kit) Discontinued Reason: Patient Refused As directed 1 ea 4RF E10.65 - Type 1 diabetes mellitus with hyperglycemia Review Patient declined Mammogram: 07/25/23 Flu Vaccine not done: patient reason Coding Level of Care Code Est Pt Level 5 (04374) Diagnoses 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 on chronic dialysis E10.22; N18.6; Z99.2 Chronic kidney disease stage: on chronic dialysis 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 E11.22; N18.4 Chronic bilateral low back pain with bilateral sciatica M54.42; M54.41; G89.29 Back pain laterality: bilateral Back pain location: low back pain Sciatica laterality: bilateral sciatica Sciatica presence: with sciatica Chronic pain syndrome G89.4 Chronic pain type: chronic pain syndrome Uncontrolled diabetes mellitus with hyperglycemia, with long-term current use of insulin E11.65; Z79.4 Hypertension complicating diabetes E11.59; I15.2 Hyperlipidemia due to type 1 diabetes mellitus E10.69; E78.5 Severe episode of recurrent major depressive disorder, without psychotic features F33.2 Active/Remission status: currently active Major depression episode severity: severe Major depression recurrence: recurrent Psychotic features: without psychotic features TERRY (generalized anxiety disorder) F41.1 Diabetic gastroparesis associated with type 1 diabetes mellitus E10.43; K31.84 Dependence on renal dialysis Z99.2 Diabetic polyneuropathy associated with type 1 diabetes mellitus E10.42 Diabetes mellitus complication detail: diabetic polyneuropathy Mild protein-calorie malnutrition E44.1 Protein-calorie malnutrition severity: mild Additional Codes TERRY-7 Assessment Billing - TERRY-7 Assessment Tool: TERRY-7 Assessment [id number] ([id number])
[2023-07-25 11:25] VITALS: BP 158/74; PULSE 64; O2SAT 97; BMI 48.1
== END 2023-07-25 12:59 | disposition home or self-care (01) ==
PROVIDERS: PCP Hospitalist; Visit Provider Nurse Practitioner Family
DX: E10.65 Type 1 diabetes mellitus with hyperglycemia (principal)
CPT/HCPCS: 83036; 99215

== ENCOUNTER 2023-07-25 12:38 | Outpatient (REF) | payer OTHER, SELFPAY ==
[2023-07-25 15:17] LABS: TSH reflex Free T4 1.69 uIU/mL (0.32-4.0)
[2023-07-25 15:30] LABS: Alanine Aminotransferase 11 U/L (0-31); Albumin Level 3.2 g/dL (3.5-5.0); Alkaline Phosphatase 97 U/L (39-117); Anion Gap 17 (12-20); Aspartate Amino Transferase 8 U/L (5-31); Bilirubin Total 0.3 mg/dL (0.0-1.0); Blood Urea Nitrogen 71 mg/dL (9-16); Calcium 8.6 mg/dL (8.4-10.2); Carbon Dioxide 25 mmol/L (22-29); Chloride 102 mmol/L (96-108); Estimated Glomerular Filt Rate 5; Glucose Random 110 mg/dL (60-115); Potassium 4.9 mmol/L (3.3-5.1); Sodium 139 mmol/L (135-145); Total Protein 6.2 g/dL (6.5-8.0)
[2023-07-26 10:29] LABS: LDL Cholesterol Direct 82 mg/dL (<100)
== END 2023-07-25 12:39 | disposition home or self-care (01) ==
LOC: HO.WFDLDS 12:38
PROVIDERS: Visit Provider Nurse Practitioner Family
DX: E10.65 Type 1 diabetes mellitus with hyperglycemia (principal); E10.22 Type 1 diabetes mellitus with diabetic chronic kidney disease; E10.43 Type 1 diabetes mellitus with diabetic autonomic (poly)neuropathy; K31.84 Gastroparesis; E10.319 Type 1 diabetes mellitus with unspecified diabetic retinopathy without macular edema; N18.9 Chronic kidney disease, unspecified
CPT/HCPCS: 36415; 80053; 83721; 84443

== ENCOUNTER 2023-09-06 12:36 | Outpatient (AMB) | payer OTHER, SELFPAY ==
--- NOTE | 2023-09-06 13:10 | A.OFFVIS_ITS ---
Intake Vital Signs 09/06/23 13:19 Height 5 ft 3.39 in Weight 275 lb 8 oz BMI 48.2 BP 100/58 L Blood Pressure Location Rt brachial Position Sitting Respiration 14 Pulse 65 Pulse Source Pulse Oximeter Temp 98.5 F Temp Source Oral Pulse Oximetry (%) 97 Oxygen Delivery Method Room Air Intake Visit Reasons: TAYLOR from [facility] Intake Note: Transfer of care Allergies Penicillins Allergy (Intermediate, Verified 09/06/23 13:12) compromises mental health HPI TAYLOR from [facility] HPI Details Transfer of Care From Pt had recent hospital admission from which she left A. Fax results to [facility] ID [phone] 43-year-old female with a past medical h istory of end-stage renal disease on hemodialysis, type 1 diabetes, anemia, hypertension, hyperlipidemia, obesity and autism spectrum, presented to [facility] hospital with worsening shortness of breath. She was found to be positive for influenza A with pneumonia and fluid overload/pulmonary edema. Her hospitalization was complicated by suspected NSTEMI with echocardiogram showing regional wall motion abnormalities and reduced EF. Also found to be anemic and was transfused with PRBC x2. Her course was further complicated by bacteremia with Staph epidermidis for which she received vancomycin. She was not given vancomycin as an outpatient or set up for infusions. Her PermCath was removed. Cardiac catheterization showed multivessel disease requiring CABG. Patient declined this and decided to leave [place]. 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 Dialysis at home 5 days a week. Should follow-up with [facility] infectious disease Should have blood cultures repeated [facility] Medical History (Updated 09/06/23 @ 14:21 by Aung Amezquita) Abnormal abdominal MRI Hearing loss in right ear Hearing loss in left ear RSV infection Hypertensive urgency Diabetes mellitus type 1, uncontrolled Gastroparesis Moderate persistent asthma, uncomplicated Chronic GERD Cyclic vomiting syndrome Surgical History AVF (arteriovenous fistula) Previous back surgery Family History Father Diabetes Paternal Grandfather Diabetes Mother No known problems Social History Housing: Apartment Alcohol intake: unknown Patient Tobacco Use Status: Former Tobacco user e-Cigarette/Vaping Use: Never Used Second Hand Smoke Exposure: No Substance Use Type: Marijuana Advance Directives Date on File: 08/31/22 service: No Current occupational status: disabled Current occupational exposures/hazards: No Cognitive needs: No Hearing needs: No Vision needs: No Review of Systems Const Denies chills, Denies fatigue, Denies fever(s), Denies headache(s) and Denies weakness ENT Denies dizziness and Denies headache(s) Card Denies dyspnea Resp Denies cough, Denies dyspnea, Denies wheezing and Denies other (shortness of breath) Musc Denies numbness and Denies tingling Neuro Denies dizziness, Denies headache(s), Denies numbness, Denies tingling and Denies weakness Psych Denies anxiety and Denies depression Endo Denies fatigue Aller/Immun Denies wheezing Physical Exam Vital Signs: Last Vital Signs Temp 98.5 F 09/06/23 13:19 Pulse 65 09/06/23 13:19 Resp 14 09/06/23 13:19 BP 100/58 L 09/06/23 13:19 Pulse Ox 97 09/06/23 13:19 Oxygen Delivery Method Room Air 09/06/23 13:19 BMI result Body Mass Index 48.2 Const General: well developed; No acute distress Nutritional Appearance: obese morbidly obese Orientation/consciousness: patient oriented x3 HEENT Head: Yes normocephalic and Yes atraumatic Eyes General: appearance normal, both eyes and all related structures Pupils: Equal, round and reactive pupils present EOM: EOMs intact bilaterally Resp Effort & Inspection: normal respiratory effort Auscultation: clear to auscultation bilaterally Cardio Rate: regular rate Rhythm: regular rhythm Heart sounds: S1 normal heart sound present, S2 normal heart sound present, no gallops, no murmurs and no rubs Neuro Other: RLE weakness General: patient oriented x3 and No gait normal Cranial nerves: Yes Equal, round and reactive pupils present Gait exam (Neuro): gait abnormal Motor exam (neuro): strength not 5/5 throughout Psych Affect: normal affect Assessment & Plan Assessment & Plan (1) End stage renal disease: Code(s): N18.6 - End stage renal disease Plan: Patient?with?end-stage?renal?disease?and?hemodialysis?dependent?who?left?hospita l?AMA?after?removal?of?her?port?due?to?bacteremia. Will?need?to?see?rn vascular?urgently?and?I?have?made?a?referral?and?ask?the?of fice?to?contact?Nephrology?office?today. If?patient?is?unable?to?be?seen?on?an?emergent?basis,?she?u nderstands?she?should?go?back?to?the?emergency?department. (2) 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: Comment: Managed by renal at [facility], on dialysis Code(s): E10.22 - Type 1 diabetes mellitus with diabetic chronic kidney disease Qualifiers: Chronic kidney disease stage: on chronic dialysis Qualified Code(s): E10.22 - Type 1 diabetes mellitus with diabetic chronic kidney disease; N18.6 - End stage renal disease; Z99.2 - Dependence on renal dialysis Plan: Checking?A1c Referred?to?endocrinology Continue?current?medication?regimen (3) Bacteremia: Code(s): R78.81 - Bacteremia Plan: Blood?cultures?ordered?and?she?will?get?those Done?tomorrow?morning. Patient?does?not?appear?septic?and?heart?rate?and?temperature?are?normal Will?refer?to?Infectious?Disease?at?recommendation?of?hospital. ?She?did?not?want?referral?back?to?[facility]?ID?so?referred?her?to?[facility]?ID Cultures?are?ordered (4) Anemia: Code(s): D64.9 - Anemia, unspecified Plan: S/p?PRBCs?x2?at?hospital Check?CBC Follow-up?with?nephrology?as?recommended (5) Hypertension: Code(s): I10 - Essential (primary) hypertension Plan: Blood?pressure?is?controlled (6) CAD (coronary artery disease): Code(s): I25.10 - Atherosclerotic heart disease of [place] coronary artery without angina pectoris Plan: Recent?angiography?showed?multi- vessel?disease?and?CABG?was?recommended?but?patient?left?hospital?AMA Referred?to?cardiology.??She?declines?referral?to?[facility]?Cardiology?and?wants?[facility]??Referral?is?made.??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 .??Will?follow Check?chest?x-ray?troponin?and?BNP (7) NSTEMI (non-ST elevated myocardial infarction): Code(s): I21.4 - Non-ST elevation (NSTEMI) myocardial infarction Plan: As?above,?check?chest?x-ray?troponin?and?BNP Referred?to?cardiology Lungs?are?clear?and?patient?is?in?no?acute?distress?today (8) Chronic pain: Code(s): G89.29 - Other chronic pain Qualifiers: Chronic pain type: chronic pain syndrome Qualified Code(s): G89.4 - Chronic pain syndrome Plan: Patient?had?been?on?very?high?doses?of?hydromorphone?and?other?opioids She?is?completely?off?of?these Had?had?a?referral?to ?pain?management?but?missed?it?due?to?being?in?the?hospital.??I?have?asked?the?o ffice?to?get?her?rescheduled?with?pain?management (9) Unsteady gait: Code(s): R26.81 - Unsteadiness on feet Plan: Significantly?unsteady?gait?and?patient?uses?a?wheelchair.??She?has?a?right?foot ?drop?and?lower?extremity?weakness?bilateral Referred?to?neurology (10) Coronary artery disease: Code(s): I25.10 - Atherosclerotic heart disease of [place] coronary artery without angina pectoris Plan: As?above (11) NSTEMI (non-ST elevated myocardial infarction): Code(s): I21.4 - Non-ST elevation (NSTEMI) myocardial infarction Plan: As?above (12) CHF (congestive heart failure): Code(s): I50.9 - Heart failure, unspecified Plan: CHF?likely?secondary?to?coronary?artery?disease?and?NSTE [place]?as?well?as?fluid?overload?due?to?lack?of?dialysis See?above (13) Lower extremity weakness: Code(s): R29.898 - Other symptoms and signs involving the musculoskeletal system Plan: As?above,?referred?to?neurology (14) Right foot drop: Code(s): M21.371 - Foot drop, right foot Plan: Referred?to?neurology (15) Neuropathy: Code(s): G62.9 - Polyneuropathy, unspecified Plan: Refer?to?Neurology Orders: Orders Blood Culture X2 Today R78.81 - Bacteremia Complete Blood Count Auto Diff Today Z00.00 - Encounter for general adult medical examination without abnormal findings Comprehensive [place]. Panel Fast Today Z00.00 - Encounter for general adult medical examination without abnormal findings B Type Natriuretic Peptide Today I50.9 - Heart failure, unspecified Troponin-I High Sensitivity Today I25.10 - Atherosclerotic heart disease of [place] coronary artery without angina pectoris XR chest 2V Today I50.9 - Heart failure, unspecified Hemoglobin A1c Today R73.01 - Impaired fasting glucose Lipid Panel Today Z00.00 - Encounter for general adult medical examination without abnormal findings Microalbumin, Random (w Creat) Today I10 - Essential (primary) hypertension TSH reflex Free T4 Today Z00.00 - Encounter for general adult medical examination without abnormal findings UA and rflx microscopic Today Z00.00 - Encounter for general adult medical examination without abnormal findings Referrals Pain Management Referral G89.29 - Other chronic pain, K31.84 - Gastroparesis, M54.9 - Dorsalgia, unspecified Nephrology Referral N18.6 - End stage renal disease, Z99.2 - Dependence on renal dialysis Cardiology Referral I21.4 - Non-ST elevation (NSTEMI) myocardial infarction, I25.10 - Atherosclerotic heart disease of [place] coronary artery without angina pectoris Endocrinology Referral E10.22 - Type 1 diabetes mellitus with diabetic chronic kidney disease, N18.6 - End stage renal disease, Z99.2 - Dependence on renal dialysis Neurology Referral G62.9 - Polyneuropathy, unspecified, M21.371 - Foot drop, right foot, R29.898 - Other symptoms and signs involving the musculoskeletal system Infectious Disease Referral R78.81 - Bacteremia Coding Level of Care Code Est Pt Level 5 (95147) Diagnoses End stage renal disease N18.6 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 on chronic dialysis E10.22; N18.6; Z99.2 Chronic kidney disease stage: on chronic dialysis Bacteremia R78.81 Anemia D64.9 Hypertension I10 CAD (coronary artery disease) I25.10 NSTEMI (non-ST elevated myocardial infarction) I21.4 Chronic pain syndrome G89.4 Chronic pain type: chronic pain syndrome Unsteady gait R26.81 CHF (congestive heart failure) I50.9 Lower extremity weakness R29.898 Right foot drop M21.371 Neuropathy G62.9
[2023-09-06 13:19] VITALS: BP 100/58; PULSE 65; RESP 14; TEMP 36.9; O2SAT 97; BMI 48.2
== END 2023-09-06 14:31 | disposition home or self-care (01) ==
PROVIDERS: PCP Family Medicine; Visit Provider Family Medicine
DX: I13.0 Hypertensive heart and chronic kidney disease with heart failure and stage 1 through stage 4 chronic kidney disease, or unspecified chronic kidney disease (principal); N18.6 End stage renal disease; E10.22 Type 1 diabetes mellitus with diabetic chronic kidney disease; I50.9 Heart failure, unspecified; Z99.2 Dependence on renal dialysis; I21.4 Non-ST elevation (NSTEMI) myocardial infarction; R78.81 Bacteremia; D64.9 Anemia, unspecified; I25.10 Atherosclerotic heart disease of native coronary artery without angina pectoris; G89.4 Chronic pain syndrome; R26.81 Unsteadiness on feet; R29.898 Other symptoms and signs involving the musculoskeletal system
CPT/HCPCS: 99215

== ENCOUNTER 2023-09-10 08:32 | Day surgery (SDC) | payer OTHER, SELFPAY ==
--- NOTE | 2023-09-09 10:20 | PM.EVENT ---
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 She has access issues with her AVF and has not been able to dialyze. She needs a permcath for initiation of Hemodialysis. I have ordered a Permcath for Sunday. She has been told to go to ER for admission after permcath insertion ( by IR)for admission for reinitiation of dialysis. She needs evaluation, blood work and optimization of her management which can only be done through a hospitalization. Jerry Montenegro MD
--- NOTE | ~2023-09-10 | IR_ITS ---
CLINICAL HISTORY: End-stage renal disease. The patient presents to interventional radiology for placement of a tunneled central venous catheter for hemodialysis. PROCEDURES: 1. Real-time ultrasound-guided access into the right internal jugular vein after documentation of selected vessel patency, and permanent imaging storing in the patient record. 2. Placement of a 14.5 fr 27 cm tunneled, dual-lumen hemodialysis catheter. Clinician: Lan Marquez PA-C MEDICATIONS: -Fentanyl 75 mcg, Lidocaine 1% 10 mL SQ. -Antibiotics: Clindamycin -For additional details, please see nursing flowsheet. COMPLICATIONS: None. ESTIMATED BLOOD LOSS: <5 ml SPECIMENS: None FLUOROSCOPY TIME: 1.4 min PROCEDURE NOTE: The procedure, risks, benefits, and alternatives were carefully explained to patient, and written informed consent was obtained. The patient was placed supine on the fluoroscopy table. A timeout was performed. The right neck and chest was prepped and draped in usual sterile fashion. Local anesthesia was administered to the access site with lidocaine. Under ultrasound guidance, the right internal jugular vein was accessed with a 5 Fr micropuncture set. A 0.035 in wire was advanced to the IVC to maintain access during the tunneling process. Next, subcutaneous lidocaine was administered to the chest. Using blunt dissection, a subcutaneous tunnel was created that connects from the upper chest to the venotomy site. The dialysis catheter was pulled through the tunnel. The tract in the vein was dilated and a peel-away sheath was advanced over the wire. The catheter was advanced through the sheath, which was subsequently peeled away. The catheter was tested, flushed, and sutured to the skin with its tip in the high right atrium. A permanent fluoroscopic image of the chest was saved to PACS. The catheter ports were packed with heparin per routine protocol. The patient was stable after the procedure and was transferred to the post anesthesia care unit. FINDINGS: 1. Patent right internal jugular vein. 2. Placement of a tunneled, dual-lumen hemodialysis catheter as above. 3. Catheter flushes and aspirates very well with a 10 mL syringe. No pneumothorax. IR/IR cvc insert central tunnel IMPRESSION: Placement of a tunneled hemodialysis catheter in the right internal jugular vein. PLAN: -The catheter may be used immediately. This procedure was performed by Lan Marquez PA-C, and directly supervised by Dr. Aguirre.
[2023-09-10 09:20] VITALS: BMI 48.7
[2023-09-10 09:33] LABS: Glucose, Whole Blood 137 mg/dL (60-115)
[2023-09-10] MEDS: Clindamycin Phosphate/D5W 600 MG/50 ML PIGGYBACK 100 MG IV (10:48)
--- NOTE | 2023-09-10 11:57 | PM.EVENT ---
Event Note Date of Service: 09/10/23 Event Note: Procedure Note: Right IJ Permacath Right IJ 27 cm permacath placed using US and Fluoro. Tip at cavoatrial junction. Ok for use D/W patient's manager strategic marketing, Dr. Montenegro. Patient needs to be transferred to ED to initiate dialysis [facility] Interventional Radiology Time Spent With Patient Time: Total time managing care of this patient today ____ minutes.
[2023-09-10 12:00] VITALS: BP 139/72; PULSE 61; RESP 16; TEMP 36.2; O2SAT 96
[2023-09-10 12:15] VITALS: BP 134/68; PULSE 60; RESP 16; TEMP 36.1; O2SAT 97
[2023-09-11 06:30] LABS: Glucose, Whole Blood 93 mg/dL (60-115)
== END 2023-09-10 12:34 | disposition home or self-care (01) ==
PROVIDERS: Student in an Organized Health Care Education/Training Program; PCP Family Medicine; Visit Provider Internal Medicine Nephrology
DX: Z45.2 Encounter for adjustment and management of vascular access device (principal); E10.22 Type 1 diabetes mellitus with diabetic chronic kidney disease; N18.6 End stage renal disease; I12.0 Hypertensive chronic kidney disease with stage 5 chronic kidney disease or end stage renal disease; Z99.2 Dependence on renal dialysis; R78.81 Bacteremia; Z79.4 Long term (current) use of insulin; D64.9 Anemia, unspecified; I25.10 Atherosclerotic heart disease of native coronary artery without angina pectoris; I21.4 Non-ST elevation (NSTEMI) myocardial infarction; E78.5 Hyperlipidemia, unspecified; J45.40 Moderate persistent asthma, uncomplicated; F84.0 Autistic disorder; H91.93 Unspecified hearing loss, bilateral; K31.84 Gastroparesis; E66.9 Obesity, unspecified; Z68.42 Body mass index [BMI] 45.0-49.9, adult; Z88.0 Allergy status to penicillin
CPT/HCPCS: 36558; 76937; 82947; A4364; C1750; C1769; J0736; J1644; J2250; J2310; J3010

== ENCOUNTER → 2023-09-10 08:32 | Outpatient (BNV) | payer OTHER, SELFPAY | PROVIDERS: PCP Family Medicine; Visit Provider Physician Assistant Surgical | DX: N18.6 End stage renal disease (principal) | CPT/HCPCS: 36558; 76937; 77001; 99499 ==

== ENCOUNTER 2023-09-10 12:44 | Inpatient (IN) | payer OTHER, SELFPAY ==
[2023-09-10] VITALS (7 sets, daily range): BP systolic 119–161; BP diastolic 53–72; PULSE 60–86; RESP 16–22; TEMP 36.4–36.8; O2SAT 98–100; BMI 47.0
--- NOTE | ~2023-09-10 | XR_ITS ---
EXAMINATION: XR ABDOMEN KUB CLINICAL INDICATION: Constipation. COMPARISON: CT abdomen/pelvis 09/11/2023. TECHNIQUE: AP view of the abdomen. FINDINGS: Evaluation is limited secondary to patient body habitus. Nonobstructive bowel gas pattern. Large amount of stool in the colon. No acute osseous findings. Degenerative changes in the hips. XR/XR abdomen 1V IMPRESSION: 1. Nonobstructive bowel gas pattern. 2. Large amount of stool in the colon.
--- NOTE | ~2023-09-10 | CT_ITS ---
EXAMINATION: CT ABDOMEN AND PELVIS WITHOUT CONTRAST CLINICAL INFORMATION: Abdominal pain. COMPARISON: CT abdomen/pelvis 11/16/2020 TECHNIQUE: Multidetector volumetric imaging was performed from the superior aspect of the liver through the pubic symphysis. Sagittal and coronal reformatted images were obtained on the technologist's workstation. This CT examination was performed using dose optimization techniques as appropriate, variously including the following: *Automated exposure control *Adjustment of mA and/or kV according to patient size (this includes techniques or standardized protocols for targeted exams where dose is matched to indication/reason for exam; i.e. extremities or head) *Use of iterative reconstruction technique DLP: 1247 mGy-cm FINDINGS: LUNG BASES: No pleural or pericardial effusion. LIVER, GALLBLADDER, AND BILIARY TREE: The noncontrast liver is normal in size and contour. No biliary ductal dilatation is present. The gallbladder is unremarkable with no evidence of radiopaque gallstones, gallbladder wall thickening, or obvious pericholecystic inflammatory changes. PANCREAS: Unremarkable. SPLEEN: Unremarkable. ADRENAL GLANDS: Larger 2.8 x 2.3 cm left adrenal nodule measuring -21 Hounsfield units. Right adrenal gland is unremarkable. KIDNEYS AND URETERS: The kidneys are symmetric in size. Nonobstructing bilateral renal calcifications. No hydronephrosis or perinephric fluid collection. BLADDER: Unremarkable. GASTROINTESTINAL TRACT: Copious stool throughout the colon. No small bowel obstruction. Appendix is within normal limits. ABDOMINAL WALL: Subcutaneous infiltration/skin thickening of the lower anterior abdominal wall decreased from prior. No significant hernia is appreciated. LYMPH NODES: No bulky lymphadenopathy. VASCULAR: Normal caliber abdominal aorta. PELVIC VISCERA: No large adnexal masses. OSSEOUS STRUCTURES: Unremarkable. CT/CT abdomen pelvis wo IV con IMPRESSION: No acute abnormality in the abdomen or pelvis. 2.8 x 2.3 cm left adrenal nodule most likely representing an adenoma. Recommend consideration of laboratory evaluation for possible pheochromocytoma and then subsequent evaluation with Adrenal Protocol CT.
--- NOTE | 2023-09-10 13:00 | ECG_ITS ---
Test Reason : ESRD Blood Pressure : / mmHG Vent. Rate : 058 BPM Atrial Rate : 058 BPM P-R Int : 186 ms QRS Dur : 100 ms QT Int : 442 ms P-R-T Axes : 025 -23 054 degrees QTc Int : 433 ms Sinus bradycardia Cannot rule out Anterior infarct , age undetermined Abnormal ECG When compared with ECG of 22-NOV-2020 02:26, Vent. rate has decreased BY 41 BPM Minimal criteria for Anterior infarct are now Present Referred By: Jerri Etienne Electronically Signed By:ROOPA CHOWDARY MD
[2023-09-10 13:27] LABS: MANUAL DIFF FLAG NO
[2023-09-10 13:28] LABS: Basophils Absolute Auto 0.1 X10*3/uL (0.0-0.2); Basophils Percent Auto 1.4 % (0-2); Eosinophils Absolute Auto 0.2 X10*3/uL (0.0-0.4); Eosinophils Percent Auto 3.2 % (0-4); Hematocrit 26.4 % (37.0-47.0); Hemoglobin 8.9 g/dl (12.0-16.0); Imm Gran Abs Auto 0.01 X10*3/uL (0.00-0.03); Imm Gran Pct Auto 0.2 % (0.0-0.4); Lymphocytes Absolute Auto 1.6 X10*3/uL (1.2-4.9); Lymphocytes Percent Auto 32.4 % (20-40); Mean Corpuscular HGB Conc 33.7 g/dl (31.0-35.0); Mean Corpuscular Hemoglobin 28.5 pg (27.0-33.0); Mean Corpuscular Volume 84.6 fL (80.0-98.0); Mean Platelet Volume 10.7 fL (9.4-12.3); Monocytes Absolute Auto 0.4 X10*3/uL (0.1-1.2); Neutrophils Absolute Auto 2.7 x10*3/uL (2.0-8.3); Neutrophils Percent Auto 54.8 % (45-73); Platelet Count 245 X10*3/uL (160-400); Red Blood Count 3.12 X10*6/uL (4.20-5.50); Red Cell Distribution Width 15.7 % (11.0-16.0)
--- NOTE | 2023-09-10 13:37 | ED_ITS ---
HPI - General Adult General Chief complaint: General Medical Stated complaint: dialysis Time Seen by Provider: 09/10/23 12:59 Source: patient Mode of arrival: wheelchair History of Present Illness HPI narrative: This is a 43-year-old female with significant past medical history diabetes, hypertension, NSTEMI, cauda equina who is dialysis dependent and comes to us from the IR department here at [facility] where she was sent by Dr. Sherman, nephrology, who then instructed that the patient should come here after placement of dialysis catheter for dialysis as she has not had dialysis for approximately 9 days. Currently she denies any shortness of breath, chest pain/palpitations, abdominal pain/nausea/vomiting, patient still makes small amount of urine. Remaining medical history obtained from the patient she states that she has history of cauda equina from a fall and has paralysis to the right lower extremity which is chronic in nature, she was recently evaluated at [facility] on 08/17 of this year for MO, underwent cardiac catheterization with recommendation for CABG, no stents placed, she declined CABG at [facility], at that time her dialysis catheter was removed and her newly matured fistula was deemed safe for use for dialysis but then continued to have complications sustained at the dialysis center causing her to missed dialysis. She has an appointment with [facility] for CABG. Related Data Home Medications Medication Instructions Recorded Confirmed losartan 100 mg tablet 1 tab PO DAILY 11/21/20 07/25/23 sevelamer carbonate 800 mg tablet 800 mg PO TID 07/27/21 07/25/23 clonazepam 0.5 mg tablet 0.5 mg PO BID 12/13/22 07/25/23 atenolol 50 mg tablet 50 mg PO DAILY 07/25/23 07/25/23 aspirin 81 mg tablet,delayed 81 mg PO DAILY 09/06/23 release (Adult Low Dose Aspirin) metoprolol succinate 100 mg 100 mg PO DAILY 09/06/23 tablet,extended release 24 hr pantoprazole 40 mg tablet,delayed 40 mg PO DAILY 09/06/23 release Previous Rx's Medication Instructions Recorded miscellaneous medical supply See Rx Instructions miscellaneous 05/24/21 .COMPLEX 12 months #1 ea pen needle, diabetic 32 gauge x #125 ea 07/27/21 (BD Ultra-Fine Esperanza Pen Needle) insulin syringe-needle U-100 0.3 ##100 10/12/21 mL 31 gauge x 5/16 (BD Insulin Syringe Ultra-Fine) inhalational spacing device #1 ea 02/07/22 (Aerochamber MV spacer) blood sugar diagnostic (FreeStyle #100 ea 09/05/22 Lite Strips) lancets 28 gauge (FreeStyle #100 ea 09/05/22 Lancets) amlodipine 10 mg tablet 10 mg PO DAILY #90 tabs 12/05/22 blood-glucose meter (FreeStyle #1 ea 12/13/22 Lite Meter kit) insulin degludec 200 unit/mL (3 40 unit (0.2 mL) subcut DAILY 30 01/29/23 mL) subcutaneous pen (Tresiba days #6 mL FlexTouch U-200 insulin) albuterol sulfate 90 mcg/actuation 2 puff PO Q4H PRN for wheezing 1 02/23/23 aerosol inhaler (Ventolin HFA) month #8.5 grams blood-glucose meter,continuous #1 ea 08/15/23 (FreeStyle Fan 3 [place]) blood-glucose sensor (FreeStyle #2 ea 08/15/23 Fan 3 Sensor device) omeprazole 40 mg capsule,delayed 40 mg PO QAM #90 caps 08/29/23 release atorvastatin 40 mg tablet 40 mg PO BEDTIME #90 tabs 09/04/23 montelukast 10 mg tablet 10 mg PO BEDTIME #90 tabs 09/04/23 sodium polystyrene sulfonate 30 g PO DAILY 3 days #150 grams 09/07/23 Allergies Allergy/AdvReac Type Severity Reaction Status Date / Time Penicillins Allergy Intermediate compromises Verified 09/10/23 12:55 mental health Review of Systems 2 Review of Systems: Pertinent positives and negatives as stated in HPI [facility] Past Medical History Source: nursing notes reviewed Medical History Abnormal abdominal MRI Hearing loss in right ear Hearing loss in left ear RSV infection Hypertensive urgency Diabetes mellitus type 1, uncontrolled Gastroparesis Moderate persistent asthma, uncomplicated Chronic GERD Cyclic vomiting syndrome Surgical History AVF (arteriovenous fistula) Previous back surgery Family History Family History Father Diabetes Paternal Grandfather Diabetes Mother No known problems Social History Social History Housing: Apartment Alcohol intake: unknown Patient Tobacco Use Status: Tobacco use Unknown Smoked in Last 30 Days: No e-Cigarette/Vaping Use: Never Used Second Hand Smoke Exposure: No Substance Use Type: Marijuana Advance Directives: Yes Advance Directives on File: Yes Advance Directives Date on File: 08/31/22 service: No Current occupational status: disabled Current occupational exposures/hazards: No Cognitive needs: No Hearing needs: No Vision needs: No Physical Exam ED Vital Signs: Vital Signs - 24 hr 09/10/23 12:48 Temperature 97.5 F Pulse Rate 85 Respiratory Rate 18 Blood Pressure 119/53 L Pulse Oximetry 98 Oxygen Delivery Method Room Air BMI result Body Mass Index 47.0 VITAL SIGNS: Reviewed. GENERAL: Well developed, well nourished, in no acute distress. HEAD: Normocephalic/atraumatic EYES: PERRLA, EOMI EARS: Ext canals without abnormality NOSE: Nares patent bilateral OROPHARYNX: no oral lesions noted, posterior pharynx clear NECK: Supple, no adenopathy LUNGS: Normal breath sounds. No adventitious sounds or accessory muscle use. SpO2<98> CARDIOVASCULAR: Regular rate and rhythm without noted murmurs ABDOMEN: Soft, non-tender, non-distended with bowel sounds. MUSCULOSKELETAL: No tenderness, deformities, or effusions noted on gross inspection. EXTREMITIES: No cyanosis, clubbing or edema. RIGHT LOWER EXTREMITY: Drop foot LEFT UPPER EXTREMITY: Fistula with good thrill and bruit, significant ecchymosis surrounding the fistula, neurovascularly intact distal with warm hand SKIN: Inspection of the skin reveals no rashes NEUROLOGIC: Alert and oriented x 4. Strength and sensation to light touch were grossly intact x 4. Medical Decision Making Medical Decision Making MDM Narrative: 43-year-old female with history and clinical presentation, DDX: Need for inpatient dialysis due to missed dialysis secondary to insurance miscommunication in conjunction with injury to the left upper extremity fistula, has had dialysis catheter placed and as per Dr. Montenegro's instructions patient should be dialyzed in the hospital since she has missed several sessions. Patient reports she does have home dialysis machine and would prefer to do dialysis there but she was instructed by Dr. Sherman. 1403: I discussed case with Dr. Sherman who confirms that he would like the patient admitted, discussed chemistry findings of potassium-6.8 and creatinine- 19.84 and agrees with treatment with D50/insulin/Lokelma. I reviewed all investigations and hematologic indices negative for leukocytosis or left shift, there is no thrombocytopenia and there is a chronic normocytic anemia likely anemia of chronic disease. Chemistry indices demonstrate significant renal derangements reflective of patient's missed dialysis with creatinine-19.8 for/BUN-135/potassium-6.8 which will be treated with insulin/D50/Lokelma and otherwise no liver enzymes arrangements and patient remains hemodynamically stable. 1347: I discussed the case with inpatient hospitalist who accepts admission. Differential Diagnosis Differential Diagnoses: The differential diagnosis associated with the presentation includes Please see the discussion above Admission/Observation Consideration of admission/observation: Escalation of care including admission/observation considered Please see the discussion above Consult Healthcare Provider Management of the patient was discussed with: Hospitalist and Station Baggage Agent Please see the discussion above Lab Data MDM Lab Attestation statement: I reviewed the patient's lab results. Please see the discussion above 09/10/23 13:18 09/10/23 13:18 Labs: Lab Results 09/10/23 Range/Units 13:18 WBC 5.0 (4.8-10.8) X10*3/uL RBC 3.12 L (4.20-5.50) X10*6/uL Hgb 8.9 L (12.0-16.0) g/dl Hct 26.4 L (37.0-47.0) % MCV 84.6 (80.0-98.0) fL MCH 28.5 (27.0-33.0) pg MCHC 33.7 (31.0-35.0) g/dl RDW 15.7 (11.0-16.0) % Plt Count 245 (160-400) X10*3/uL MPV 10.7 (9.4-12.3) fL Immature Gran % (Auto) 0.2 (0.0-0.4) % Neut % (Auto) 54.8 (45-73) % Lymph % (Auto) 32.4 (20-40) % [place] % (Auto) 8.0 (2-11) % Eos % (Auto) 3.2 (0-4) % Baso % (Auto) 1.4 (0-2) % Lymph # (Auto) 1.6 (1.2-4.9) X10*3/uL [place] # (Auto) 0.4 (0.1-1.2) X10*3/uL Eos # (Auto) 0.2 (0.0-0.4) X10*3/uL Baso # (Auto) 0.1 (0.0-0.2) X10*3/uL Abs Immat Gran (auto) 0.01 (0.00-0.03) X10*3/uL Absolute Neuts (auto) 2.7 (2.0-8.3) x10*3/uL Absolute Nucleated RBC 0.000 (0.0-0.012) X10*3/uL Nucleated RBC % (auto) 0.0 (0.0-0.2) /100WBC Sodium 136 (135-145) mmol/L Potassium 6.8 H* D (3.3-5.1) mmol/L Chloride 102 (96-108) mmol/L Carbon Dioxide 13 L (22-29) mmol/L Anion Gap 28 H (12-20) BUN 135 H (9-16) mg/dL Creatinine 19.84 H* (0.5-1.4) mg/dL Estim Creat Clear Calc 5.1 Estimated GFR 2 Random Glucose 100 (60-115) mg/dL Calcium 8.8 (8.4-10.2) mg/dL Total Bilirubin 0.5 (0.0-1.0) mg/dL AST 8 (5-31) U/L ALT 11 (0-31) U/L Alkaline Phosphatase 98 (39-117) U/L Total Protein 6.5 (6.5-8.0) g/dL Albumin 3.4 L (3.5-5.0) g/dL Independent Interpretation I performed an independent interpretation of an: EKG Interpretation: Sinus bradycardia, HR-58, no STEMI, MI/QRS are within normal limits, QTC is within normal limits, but noted QT prolongation-442 External Record Review External record reviewed: Outpatient record, Prior outpatient labs and Prior outpatient radiology Chronic Conditions Patient?s care impacted by: Diabetes and Hypertension ESRD on dialysis Critical Care Time Critical Care Time Critical Care Time: Yes Total Critical Care Time: 60 Attestation: I personally attest to this time spent taking care of the patient. Discharge Plan Discharge Clinical Impression: ESRD needing dialysis, Hyperkalemia Patient Disposition: Admitted As Inpatient Prescriptions: No Action miscellaneous medical supply Misc See Rx Instructions miscellaneous .COMPLEX 360 Days Qty: 1 0RF Rx Instructions: wheel chair miscellaneous; (DME) insulin syringe-needle U-100 [BD Insulin Syringe Ultra-Fine] 0.3 mL 31 gauge x 5/16 syringe See Rx Instructions .ROUTE .COMPLEX Qty: 100 5RF Dose Instruction: USE 3 TIMES A DAY Rx Instructions: USE 3 TIMES A DAY (DME) Aerochamber MV Spacer See Rx Instructions .ROUTE .MEDSUPPLY Qty: 1 0RF Rx Instructions: As directed (DME) FreeStyle Lite Strips Strip See Rx Instructions .Route Qty: 100 3RF Rx Instructions: Use to check blood sugar 4 times daily, before mealtimes and bedtime. (DME) lancets [FreeStyle Lancets] 28 gauge misc See Rx Instructions .Route Qty: 100 3RF Rx Instructions: Use to check blood sugar 4 times daily, before mealtimes and bedtime. amlodipine 10 mg tablet 10 mg PO DAILY Qty: 90 3RF insulin degludec [Tresiba FlexTouch U-200] 200 unit/mL (3 mL) insulin pen 40 unit subcut DAILY 30 Days Qty: 6 6RF albuterol sulfate [Ventolin HFA] 90 mcg/actuation HFA aerosol inhaler 2 puff PO Q4H PRN (Reason: for wheezing) 30 Days Qty: 8.5 8RF (DME) FreeStyle Fan 3 [place] Misc See Rx Instructions .Route Qty: 1 0RF Rx Instructions: As directed (DME) FreeStyle Fan 3 Sensor Device See Rx Instructions .Route Qty: 2 11RF Rx Instructions: As directed omeprazole 40 mg capsule,delayed release(DR/EC) 40 mg PO QAM Qty: 90 1RF montelukast 10 mg tablet 10 mg PO BEDTIME Qty: 90 3RF atorvastatin 40 mg tablet 40 mg PO BEDTIME Qty: 90 3RF sodium polystyrene sulfonate Powder 30 g PO DAILY 3 Days Qty: 150 0RF losartan 100 mg tablet 1 tab PO DAILY clonazepam 0.5 mg tablet 0.5 mg PO BID (DME) blood-glucose meter [FreeStyle Lite Meter] Kit See Rx Instructions .Route Qty: 1 0RF Rx Instructions: Use to check blood sugar 4 times daily, before mealtimes and bedtime. atenolol 50 mg tablet 50 mg PO DAILY pantoprazole 40 mg tablet,delayed release (DR/EC) 40 mg PO DAILY aspirin [Adult Low Dose Aspirin] 81 mg tablet,delayed release (DR/EC) 81 mg PO DAILY metoprolol succinate 100 mg tablet extended release 24 hr 100 mg PO DAILY sevelamer carbonate 800 mg tablet 800 mg PO TID (DME) pen needle, diabetic [BD Ultra-Fine Esperanza Pen Needle] 32 gauge x 5/32 needle See Rx Instructions .ROUTE .MEDSUPPLY Qty: 125 11RF Rx Instructions: As directed four times a day
[2023-09-10 13:55] LABS: Alanine Aminotransferase 11 U/L (0-31); Albumin Level 3.4 g/dL (3.5-5.0); Alkaline Phosphatase 98 U/L (39-117); Anion Gap 28 (12-20); Aspartate Amino Transferase 8 U/L (5-31); Bilirubin Total 0.5 mg/dL (0.0-1.0); Calcium 8.8 mg/dL (8.4-10.2); Carbon Dioxide 13 mmol/L (22-29); Chloride 102 mmol/L (96-108); Creatinine Clr Calc Pharmacy 5.1; Estimated Glomerular Filt Rate 2; Glucose Random 100 mg/dL (60-115); Potassium 6.8 mmol/L (3.3-5.1); Sodium 136 mmol/L (135-145); Total Protein 6.5 g/dL (6.5-8.0)
[2023-09-10 14:04] LABS: Blood Urea Nitrogen 135 mg/dL (9-16)
[2023-09-10] MEDS: Sodium Zirconium Cyclosilicate 10 GM POWD.PACK PO (14:29)
[2023-09-10] MEDS: Dextrose 50 % 25 GM/50 ML SYRINGE IVPUSH ×2 (14:29→16:13)
--- NOTE | 2023-09-10 14:44 | PHA.MEDREC ---
Addendum entered by Breonna Durand rd 09/10/23 16:45: Patient does have prescriptions for cinacelet and calcitroil she just has not been able to take them since discharge from [facility]. Patient is only take Sevelemar with meals and not scheduled. Patient report Clonazepam 1 tablet in the AM and 2 tablet at bedtime. Original Note: Pharmacy Consult ? Medication Reconciliation Pharmacy has completed the medication reconciliation. Confirmed medications with patient and through claim history. Patient reports that she is taking 1 tab of sevelamer when and IF she eats. Also taking Omeprazole 40mg and Pantoprazole 40ng together. (nobody told her not to she says) Not taking Calcitrol, Cinacelet, Velphoro, or Vyvanse. Also reports she is not taking Clopidogrel. I called [facility] and it was electronically canceled. She also is taking Losartan. Claim history shows that it hasn't been filled since January but she has plenty at home . (
[2023-09-10] MEDS: Albuterol Sulfate 90 MCG 8 GM INHALER 2 PUFF INHALE (14:48)
--- NOTE | 2023-09-10 14:48 | P.HPHOSP_ITS ---
History of Present Illness Date of Service: 09/10/23 Attending physician on admission: Cristino Pillai Chief Complaint: esrd dialysis 43-year-old female with complicated past medical history including uncontrolled type 1 diabetes with ESRD on dialysis, diabetic polyneuropathy, hypertension, hyperlipidemia, mood disorder, coronary artery disease with history of NSTEMI (has appt with [facility] regarding possible CABG on sunday), history of cauda equina syndrome with chronic bilateral lower extremity weakness, diabetic gastroparesis, moderate persistent asthma, who is morbidly obese with BMI greater than 47 presents to the ED earlier today from the IR department at the recommendation of Dr. Sherman in nephrology. She has not had dialysis in 9 days following disagreement with dialysis clinic. Unfortuntely av fistula in lue unable to be used and has large hematomas at fistula site. She had dialysis catheter replaced in IR. She does also have dialysis machine at home but has been unable to use this. She currently reports feeling fatigue and pain at the incision site. She does make urine and feels very anxious and depressed over her current medical situation and has considered palliative care/hospice. No lightheadedness, nausea, vomiting, confusion, sob, palpitations, chest pain. Since arrival, vital signs are stable. No leukocytosis. Has a stable normocytic anemia with H/H 8.9/26.4%. Creatinine 19.84, BUN 135. Potassium 6.8, CO2 13, anion gap 28. EKG shows sinus bradycardia, rate [address]/T-wave abnormality. No peaked T-waves. In the ED, given 5 units insulin, 1 amp d50, and lokelma. Review of Systems 2 Review of Systems: General: +fatigue. No fevers, malaise, unintentional weight loss HEENT: No blurred vision, diplopia. No sore throat, nasal congestion, rhinorrhea, sinus pain, ear pain Cardiovascular: No chest pain, palpitations, or leg edema Respiratory: No shortness of breath, wheezing, cough GI: No abdominal pain, nausea, vomiting, diarrhea, constipation, melena, hematochezia : No dysuria, hematuria, increased urinary frequency, decreased urinary output MSK: No myalgia, back pain Neuro: No headaches, weakness, paresthesias Skin: No rashes or lesions [facility] Medical History (Updated 09/10/23 @ 15:24 by FELA Kelly) ESRD needing dialysis NSTEMI (non-ST elevated myocardial infarction) MDD (major depressive disorder) Hyperlipidemia due to type 1 diabetes mellitus Diabetic retinopathy Cauda equina syndrome Anasarca associated with disorder of kidney DM gastroparesis Abnormal abdominal MRI Hearing loss in right ear Hearing loss in left ear RSV infection Hypertensive urgency Diabetes mellitus type 1, uncontrolled Gastroparesis Moderate persistent asthma, uncomplicated Chronic GERD Cyclic vomiting syndrome Family History Father Diabetes Paternal Grandfather Diabetes Mother No known problems Surgical History AVF (arteriovenous fistula) Previous back surgery Social History Housing: Apartment Alcohol intake: unknown Patient Tobacco Use Status: Tobacco use Unknown Smoked in Last 30 Days: No e-Cigarette/Vaping Use: Never Used Second Hand Smoke Exposure: No Substance Use Type: Marijuana Advance Directives: Yes Advance Directives on File: Yes Advance Directives Date on File: 08/31/22 service: No Current occupational status: disabled Current occupational exposures/hazards: No Cognitive needs: No Hearing needs: No Vision needs: No Meds Allergies Allergy/AdvReac Type Severity Reaction Status Date / Time Penicillins Allergy Intermediate compromises Verified 09/10/23 12:55 mental health Active Medications: Current Medications Dextrose (D5w) 1,000 mls @ 100 mls/hr IVCONT .Q10H CRIS Home Medications Medication Instructions Recorded Confirmed Last Taken Type losartan 100 mg tablet 1 tab PO DAILY 11/21/20 07/25/23 09/10/23 History sevelamer carbonate 800 mg tablet 800 mg PO QD-TID 07/27/21 07/25/23 09/10/23 History clonazepam 0.5 mg tablet 0.5 mg PO TID 12/13/22 07/25/23 09/10/23 History aspirin 81 mg tablet,delayed 81 mg PO DAILY 09/06/23 09/10/23 History release (Adult Low Dose Aspirin) metoprolol succinate 100 mg 100 mg PO DAILY 09/06/23 09/10/23 History tablet,extended release 24 hr pantoprazole 40 mg tablet,delayed 40 mg PO DAILY 09/06/23 Unknown History release duloxetine 30 mg capsule,delayed 30 mg PO DAILY 09/10/23 09/10/23 History release insulin degludec 200 unit/mL (3 40 unit subcut BEDTIME 09/10/23 09/09/23 History mL) subcutaneous pen (Tresiba FlexTouch U-200 insulin) trazodone 100 mg tablet 200 mg PO BEDTIME 09/10/23 09/09/23 History Physical Exam 2 Vital Signs and Narrative: Vital Signs: Last Vital Signs Temp 97.5 F 09/10/23 12:48 Pulse 85 09/10/23 12:48 Resp 18 09/10/23 12:48 BP 119/53 L 09/10/23 12:48 Pulse Ox 98 09/10/23 12:48 O2 Del Method Room Air 09/10/23 12:48 BMI result Body Mass Index 47.0 Constitutional - Awake and Alert, No apparent distress Eyes - PERRLA, EOMI Cardiovascular - S1S2, RRR, 2+ ble edema Respiratory - Normal lung expansion, Normal respiratory effort, No respiratory distress, CTA bilaterally Gastrointestinal -right sided ttp. ND; +BS; No rebound or guarding Extremities - no calf tenderness bilaterally, no swelling Skin - Warm/Dry Neurological - Alert & oriented x3 Psychological - anxious appearing, irritated, tearful Results Labs 09/10/23 13:18 09/10/23 13:18 Labs: Laboratory Results - last 24 hr 09/10/23 13:18 MCV 84.6 MCH 28.5 MCHC 33.7 RDW 15.7 Plt Count 245 MPV 10.7 Immature Gran % (Auto) 0.2 Neut % (Auto) 54.8 Lymph % (Auto) 32.4 [place] % (Auto) 8.0 Eos % (Auto) 3.2 Baso % (Auto) 1.4 Lymph # (Auto) 1.6 [place] # (Auto) 0.4 Eos # (Auto) 0.2 Baso # (Auto) 0.1 Abs Immat Gran (auto) 0.01 Absolute Neuts (auto) 2.7 Absolute Nucleated RBC 0.000 Nucleated RBC % (auto) 0.0 Anion Gap 28 H Estim Creat Clear Calc 5.1 Estimated GFR 2 Random Glucose 100 Calcium 8.8 Total Bilirubin 0.5 AST 8 ALT 11 Alkaline Phosphatase 98 Total Protein 6.5 Albumin 3.4 L Assessment and Plan (1) Hyperkalemia: Status: Acute (2) ESRD needing dialysis: Status: Acute Plan 43-year-old female with complicated past medical history including uncontrolled type 1 diabetes with ESRD on dialysis, diabetic polyneuropathy, hypertension, hyperlipidemia, mood disorder, coronary artery disease with history of NSTEMI (has appt with [facility] regarding possible CABG on sunday), history of cauda equina syndrome with chronic bilateral lower extremity weakness, diabetic gastroparesis, moderate persistent asthma, who is morbidly obese with BMI greater than 47 admitted for ESRD on dialysis with hyperkalemia #Acute hyperkalemia- due to acute on chronic renal failure -creat 19, BUN 134, K 6.8 -POC 82 in ed. Given 1 amp d50. Will give D5W with 5 units insulin -albuterol inhaler -EKG without peked t waves -give calcium gluconate -nephrology consult -low potassium diet -monitor on telemetry -follow lytes #Acute on chronic renal failure- non-oliguric -creat 19, BUN 134 -esrd on dialysis- has not been dialyzed in 9 days. Dialysis catheter replaced today, check blood cultures -dialysis cath replaced by IR today -plan for HD today, tomorrow, sunday per nephro -nephro consult -avoid nephrotoxins -Strict I&O -low-sodium diet -follow renal function/lytes #Acute anion gap metabolic acidosis- due to above -Bicarb 13, VBG pending -likely has degree of chronic acidosis due to ESRD -give 650mg sodium bicarb TID -nephro consult -plan for dialysis today as above # AV fistula in place LUE- unusable -large overlying hematoma, ice packs p.r.n. # uncontrolled type 1 diabetes with hyperglycemia -POC glucose, diabetic diet -Humalog on sliding scale, dose adjusted basal insulin # moderate persistent asthma -no acute exacerbation -continue maintenance inhalers, albuterol p.r.n. # GERD -PPI # hypertension -hold losartan in setting of acute on chronic renal failure. Continue metoprolol # mood disorder -continue home meds # CAD -no anginal chest pain -continue ASA, beta-ángel, statin DVT prophylaxis- avoid heparin due to large hematoma LUE, SCPs, early ambulation Full code Patient requires inpatient stay at least 2 midnights for management of acute on chronic renal failure with hyperkalemia requiring aggressive measures to lower potassium level with close cardiac monitoring and emergent HD as well as expert consultation Quality Stroke Does the patient have a stroke diagnosis?: No VTE Prior VTE?: No VTE Risk Level:: Medical - moderate - high VTE Device Contraindication: Treatment Not Indicated VTE Drug Contraindication: N/A - Med Ordered
[2023-09-10] MEDS: LORazepam 2 MG/ML VIAL 1 MG IVPUSH (15:49)
[2023-09-10] MEDS: Calcium Gluconate/NaCl,Iso-Osm 2 GM/100 ML PLAST..BAG IV (15:50)
[2023-09-10] MEDS: Morphine Sulfate 4 MG/ML CARTRIDGE IVPUSH (15:50)
[2023-09-10 16:02] LABS: VBG Base Excess -11.8 mmol/L; VBG HCO3 12 mmol/L (22-26); VBG pCO2 25 mmHg; VBG pO2 135 mmHg
[2023-09-10 16:02] LABS: Venous Blood Gas Refer to POC result
[2023-09-10] MEDS: Dextrose 5 % 1,000 ML 100 ML IVCONT ×2 (16:11→22:18)
[2023-09-10] MEDS: Sodium Bicarbonate 650 MG TABLET PO ×2 (16:27→22:16)
[2023-09-10 16:47] LABS: Glucose, Whole Blood 82 mg/dL (60-115)
[2023-09-10 16:47] LABS: Glucose, Whole Blood 112 mg/dL (60-115)
--- NOTE | 2023-09-10 20:09 | PC.NURSE ---
spoke w dialysis nurse to notify this rn texted radha fonseca as dialysis states pt requesting pain meds. kailey rn kevon texted to notify this and that pt will want pain meds.
[2023-09-10 21:59] LABS: Glucose, Whole Blood 133 mg/dL (60-115)
[2023-09-10] MEDS: traZODone HCL 100 MG TABLET 200 MG PO (22:15)
[2023-09-10] MEDS: Atorvastatin Calcium 40 MG TABLET PO (22:16)
[2023-09-10] MEDS: Montelukast Sodium 10 MG TABLET PO (22:16)
[2023-09-10] MEDS: clonazePAM 1 MG TABLET PO (22:16)
[2023-09-10] MEDS: Morphine Sulfate 2 MG/ML CARTRIDGE IVPUSH (22:16)
[2023-09-10] MEDS: 0.9 % Sodium Chloride Flush 3 ML SYRINGE IVFLUSH (22:19)
[2023-09-10 22:32] LABS: Anion Gap 18 (12-20); Blood Urea Nitrogen 48 mg/dL (9-16); Calcium 9.2 mg/dL (8.4-10.2); Carbon Dioxide 22 mmol/L (22-29); Chloride 98 mmol/L (96-108); Creatinine Clr Calc Pharmacy 13.5; Estimated Glomerular Filt Rate 6; Glucose Random 134 mg/dL (60-115); Potassium 2.9 mmol/L (3.3-5.1); Sodium 135 mmol/L (135-145)
[2023-09-10] MEDS: oxyCODONE HCl Immed Release 5 MG TABLET PO (23:33)
--- NOTE | 2023-09-11 03:22 | PC.NURSE ---
Addendum entered by Johnny Mcclain RN 09/11/23 03:56: approx 11-11:30 pm er front desk host called and reported visitor wanted to see patient...patient informed but patient declined to have visitors overnight...security notified of patient's request Original Note: ADMIT TO 467-1 VIA STRETCHER FROM DIALYSIS AND ER DEPT..ALERT..ORIENTED X3...RESPIRATIONS EASY...SHUNT TO LEFT ARM NON-FUNCTIONAL PER PATIENT AND MD REPORT....RIGHT CHEST DIALYSIS CATHETER PRESENT...PER NUCLEAR SCIENTIST 3.5 KG FLUID REMOVED WITH HEMODIALYSIS...PATIENT C/O RIGHT CHEST AND BACK PAIN...MORPHINE 2MG IV GIVEN BUT IV SITE INFILTRATED.....NEW # 22 ANGIO STARTED RIGHT FOREARM...D5W 100 CC/HR...POC GLUCOSE= 133...MD UPDATED R/T C/O PAIN AND ? ABSORPTION OF MORPHINE...PRN OXYCODONE ORDERED/GIVEN...RESTFUL AFTERWARDS AND DOZING....LAB REPORTED K=2.9 (PREVIOUSLY 6.8 PRIOR TO DIALYSIS AND MEDS PER AUG)..NO TREATMENT OF K LEVEL AT PRESENT PER HOSPITALIST..TO ASSESS AM CHEMISTRY RESULTS PER MD...NSR...NARROW COMPLEX QRS..NO ECTOPY..CURRENTLY DOZING..RESPIRATIONS EASY
[2023-09-11 04:00] VITALS: BP 136/63; PULSE 63; RESP 20; TEMP 37.1; O2SAT 95
[2023-09-11] MEDS: Omeprazole 20 MG CAPSULE.DR PO (05:49)
[2023-09-11] MEDS: oxyCODONE HCl Immed Release 5 MG TABLET PO ×2 (06:24→12:58)
[2023-09-11 07:10] LABS: Glucose, Whole Blood 118 mg/dL (60-115)
[2023-09-11 07:15] LABS: MANUAL DIFF FLAG NO
[2023-09-11 07:22] LABS: Basophils Percent Auto 0.8 % (0-2); Eosinophils Absolute Auto 0.2 X10*3/uL (0.0-0.4); Eosinophils Percent Auto 3.2 % (0-4); Hematocrit 24.3 % (37.0-47.0); Hemoglobin 8.6 g/dl (12.0-16.0); Imm Gran Abs Auto 0.02 X10*3/uL (0.00-0.03); Imm Gran Pct Auto 0.4 % (0.0-0.4); Lymphocytes Absolute Auto 1.3 X10*3/uL (1.2-4.9); Lymphocytes Percent Auto 27.8 % (20-40); Mean Corpuscular HGB Conc 35.4 g/dl (31.0-35.0); Mean Corpuscular Volume 81.8 fL (80.0-98.0); Mean Platelet Volume 10.1 fL (9.4-12.3); Monocytes Absolute Auto 0.5 X10*3/uL (0.1-1.2); Monocytes Percent Auto 10.8 % (2-11); Neutrophils Absolute Auto 2.7 x10*3/uL (2.0-8.3); Platelet Count 215 X10*3/uL (160-400); Red Blood Count 2.97 X10*6/uL (4.20-5.50); Red Cell Distribution Width 14.9 % (11.0-16.0); White Blood Count 4.7 X10*3/uL (4.8-10.8)
[2023-09-11 07:41] LABS: Anion Gap 17 (12-20); Blood Urea Nitrogen 57 mg/dL (9-16); Calcium 8.6 mg/dL (8.4-10.2); Carbon Dioxide 21 mmol/L (22-29); Chloride 98 mmol/L (96-108); Creatinine Clr Calc Pharmacy 9.7; Estimated Glomerular Filt Rate 4; Glucose Random 111 mg/dL (60-115); Potassium 3.7 mmol/L (3.3-5.1); Sodium 132 mmol/L (135-145)
[2023-09-11] MEDS: Dextrose 5 % 1,000 ML 100 ML IVCONT (07:43)
[2023-09-11 08:00] VITALS: BP 142/67; PULSE 64; RESP 20; TEMP 37.2; O2SAT 95
--- NOTE | 2023-09-11 11:52 | PC.NURSE ---
Pause fluids per Dr Pillai. Pt in dialysis this AM
[2023-09-11 12:40] LABS: Glucose, Whole Blood 121 mg/dL (60-115)
--- NOTE | 2023-09-11 12:46 | PM.CNNEP ---
History of Present Illness Reason for Consult Consult date: 09/11/23 Chief Complaint Chief complaint: esrd dialysis, hyperkalemia History of Present Illness Narrative: 43-year-old female with uncontrolled type 1 diabetes with ESRD on dialysis, diabetic polyneuropathy, hypertension, hyperlipidemia, mood disorder, coronary artery disease with history of NSTEMI (has appt with [facility] regarding possible CABG on this sunday), history of cauda equina syndrome with chronic bilateral lower extremity weakness, diabetic gastroparesis, moderate persistent asthma, who is morbidly obese with BMI greater than 47 presents to the ED earlier yesterday from the IR department . She has not had dialysis in 9 days following disagreement with dialysis clinic. Unfortuntely AV fistula in [facility] had been unable to be used and has large hematomas at fistula site. She had dialysis catheter replaced in IR. She does also have dialysis machine at home but has been unable to use this. She currently reports feeling fatigue She does make urine and feels very anxious and depressed over her current medical situation .No lightheadedness, nausea, vomiting, confusion, sob, palpitations, chest pain. In the ER she had H/H 8.9/26.4%. Creatinine 19.84, BUN 135. Potassium 6.8, CO2 13, anion gap 28. EKG shows sinus bradycardia, rate [address]/T-wave abnormality. No peaked T-waves. In the ED, given 5 units insulin, 1 amp d50, and lokelma. She was admitted for further management. Nephrology has been consulted to assist in her clinical care during her current hospital stay. Review of Systems Review of Systems Yes all other systems are reviewed and are negative PMF Past Medical History Medical History (Updated 09/10/23 @ 15:24 by FELA Kelly) ESRD needing dialysis NSTEMI (non-ST elevated myocardial infarction) MDD (major depressive disorder) Hyperlipidemia due to type 1 diabetes mellitus Diabetic retinopathy Cauda equina syndrome Anasarca associated with disorder of kidney DM gastroparesis Abnormal abdominal MRI Hearing loss in right ear Hearing loss in left ear RSV infection Hypertensive urgency Diabetes mellitus type 1, uncontrolled Gastroparesis Moderate persistent asthma, uncomplicated Chronic GERD Cyclic vomiting syndrome Family History Family History Father Diabetes Paternal Grandfather Diabetes Mother No known problems Surgical History Surgical History AVF (arteriovenous fistula) Previous back surgery Social History Social History Housing: Apartment Alcohol intake: unknown Patient Tobacco Use Status: Tobacco use Unknown e-Cigarette/Vaping Use: Never Used Second Hand Smoke Exposure: No Substance Use Type: Marijuana Advance Directives Date on File: 08/31/22 service: No Current occupational status: disabled Current occupational exposures/hazards: No Cognitive needs: No Hearing needs: No Vision needs: No Meds Allergies Allergy/AdvReac Type Severity Reaction Status Date / Time Penicillins Allergy Intermediate compromises Verified 09/10/23 12:55 mental health Active Medications: Current Medications Acetaminophen (Acetaminophen 325 Mg Tablet) 650 mg PO Q6H PRN PRN Reason: Pain, Mild (Pain Scale 1-3) Albuterol Sulfate (Albuterol Sulfate 90 Mcg 8 Gm Inhaler) 2 puff INHALE Q4H PRN PRN Reason: for wheezing Amlodipine Besylate (Amlodipine Besylate 10 Mg Tablet) 10 mg PO DAILY [facility]; Protocol Aspirin (Aspirin Enteric Coated 81 Mg Tablet.) 81 mg PO DAILY [facility] Atorvastatin Calcium (Atorvastatin Calcium 40 Mg Tablet) 40 mg PO BEDTIME [facility] Last Admin: 09/10/23 22:16 Dose: 40 mg Calcitriol (Calcitriol 0.25 Mcg Capsule) 0.25 mcg PO TUTHSA [facility] Cinacalcet (Cinacalcet Hcl 30 Mg Tablet) 30 mg PO TUTHSA [facility] Clonazepam (Clonazepam 0.5 Mg Tablet) 0.5 mg PO DAILY [facility] Clonazepam (Clonazepam 1 Mg Tablet) 1 mg PO BEDTIME [facility] Last Admin: 09/10/23 22:16 Dose: 1 mg Dextrose (Dextrose 50 % 25 Gm/50 Ml Syringe) 25 gm IVPUSH Q15M PRN; Protocol PRN Reason: per Hypoglycemia Standing Ord. Duloxetine HCl (Duloxetine Hcl 30 Mg Capsule.) 30 mg PO DAILY [facility] Glucose (Glucose Gel 15 Gm Gel..Gram.) 15 gm PO Q15M PRN; Protocol PRN Reason: per Hypoglycemia Standing Ord. Heparin Sodium (Porcine) (Heparin Sodium,Porcine 5,000 Unit/Ml Vial) 5,000 unit INTRACATH ONCE ONE Stop: 09/12/23 06:40 Dextrose (D5w) 1,000 mls @ 100 mls/hr IVCONT .Q10H [facility] Last Infusion: 09/11/23 11:35 Dose: 0 mls/hr Insulin Glargine (Insulin Glargine,Hum.Rec.Anlog 100 Unit/Ml 10 Ml Vial) 20 unit SUBCUT BEDTIME CRIS Insulin Human Lispro (Insulin Lispro 100 Unit/Ml 3 Ml Vial) 0 unit SUBCUT QIDACHS [facility]; Protocol Last Admin: 09/11/23 07:44 Dose: Not Given Losartan Potassium (Losartan Potassium 50 Mg Tablet) 100 mg PO DAILY [facility]; Protocol Metoprolol Succinate (Metoprolol Succinate Er 100 Mg Tab.Er.24h) 100 mg PO DAILY [facility]; Protocol Montelukast Sodium (Montelukast Sodium 10 Mg Tablet) 10 mg PO BEDTIME [facility] Last Admin: 09/10/23 22:16 Dose: 10 mg Omeprazole (Omeprazole 20 Mg Capsule.Dr) 20 mg PO DAILY@0630 [facility] Last Admin: 09/11/23 05:49 Dose: 20 mg Ondansetron HCl (Ondansetron Hcl 4 Mg/2 Ml Vial) 4 mg IVPUSH Q8H PRN PRN Reason: Nausea and Vomiting Oxycodone HCl (Oxycodone Hcl Immed Release 5 Mg Tablet) 5 mg PO Q4H PRN PRN Reason: Pain, Severe (Pain Scale 7-10) Last Admin: 09/11/23 06:24 Dose: 5 mg Senna (Sennosides 8.6 Mg Tablet) 17.2 mg PO BEDTIME PRN PRN Reason: Constipation Sevelamer Carbonate (Sevelamer Carbonate Tablet 800 Mg Tablet) 800 mg PO TIDWM PRN PRN Reason: WITH MEALS Sodium Bicarbonate (Sodium Bicarbonate 650 Mg Tablet) 650 mg PO TID [facility] Last Admin: 09/10/23 22:16 Dose: 650 mg Sodium Chloride (0.9 % Sodium Chloride Flush 3 Ml Syringe) [facility] Last Admin: 09/11/23 07:44 Dose: Not Given Trazodone HCl (Trazodone Hcl 100 Mg Tablet) 200 mg PO BEDTIME [facility] Last Admin: 09/10/23 22:15 Dose: 200 mg Home Medications Medication Instructions Recorded Confirmed Last Taken Type losartan 100 mg tablet 1 tab PO DAILY 11/21/20 09/10/23 09/10/23 History sevelamer carbonate 800 mg tablet 800 mg PO TIDWM PRN WITH MEALS 07/27/21 09/10/23 09/10/23 History clonazepam 0.5 mg tablet 0.5 mg PO DAILY 12/13/22 09/10/23 09/10/23 History aspirin 81 mg tablet,delayed 81 mg PO DAILY 09/06/23 09/10/23 09/10/23 History release (Adult Low Dose Aspirin) metoprolol succinate 100 mg 100 mg PO DAILY 09/06/23 09/10/23 09/10/23 History tablet,extended release 24 hr pantoprazole 40 mg tablet,delayed 40 mg PO DAILY 09/06/23 09/10/23 Unknown History release calcitriol 0.25 mcg capsule 0.25 mcg PO TUTHSA 09/10/23 09/10/23 08/28/23 History cinacalcet 30 mg tablet 30 mg PO [facility] 09/10/23 09/10/23 08/28/23 History clonazepam 0.5 mg tablet 1 mg PO BEDTIME 09/10/23 09/10/23 09/09/23 History duloxetine 30 mg capsule,delayed 30 mg PO DAILY 09/10/23 09/10/23 09/10/23 History release insulin degludec 200 unit/mL (3 40 unit subcut BEDTIME 09/10/23 09/10/23 09/09/23 History mL) subcutaneous pen (Tresiba FlexTouch U-200 insulin) trazodone 100 mg tablet 200 mg PO BEDTIME 09/10/23 09/10/23 09/09/23 History Physical Exam Vital Signs: Last Vital Signs Temp 98.9 F 09/11/23 08:00 Pulse 64 09/11/23 08:00 Resp 20 09/11/23 08:00 BP 142/67 H 09/11/23 08:00 Pulse Ox 95 09/11/23 08:00 O2 Del Method Room Air 09/11/23 08:00 BMI result Body Mass Index 47.0 Const General: comfortable and no acute distress Orientation/consciousness: patient oriented x3 HEENT Head: Yes normocephalic Mouth: Normal oral and palatal mucosa present Eyes EOM: EOMs intact bilaterally Neck Neck: Yes supple Resp Auscultation: clear to auscultation bilaterally Cardio Jugular venous distension: no JVD Rate: regular rate GI Palpation (GI): Soft to palpation Auscultation: normal bowel sounds Skin General skin exam: no rashes or lesions noted Neuro General: patient oriented x3 Results Lab Results 09/11/23 07:02 09/11/23 07:02 Lab results: Chemistry 09/10/23 09/10/23 09/11/23 13:18 21:17 07:02 Sodium 136 135 132 L Potassium 6.8 H* D 2.9 L* D 3.7 D Carbon Dioxide 13 L 22 21 L BUN 135 H 48 H 57 H Creatinine 19.84 H* 7.54 H* 10.54 H* Calcium 8.8 9.2 8.6 D Phosphorus 12.0 H Hematology 09/10/23 09/11/23 13:18 07:02 WBC 5.0 4.7 L Hgb 8.9 L 8.6 L Plt Count 245 215 Assessment and Plan (1) ESRD needing dialysis: Status: Acute Plan Has ESRD from diabetic nephropathy Had been getting home hemodialysis in the past and incenter recently Had issues with the access and new PermCath was placed yesterday by IR Was hyperkalemic and was dialyzed yesterday. Seen on dialysis this morning. History ordered for tomorrow again. Outpatient home hemo RN was contacted. Will benefit from [place] [address] units subcutaneous. Renvela 1600 mg 3 times a day with meals. Low potassium, low phosphorus diet with a fluid restriction Has an appointment with Cardiology this Sunday as an outpatient to evaluate regarding coronary artery bypass grafting. Shall closely follow-up during her current hospital stay. Procedures Date of Service Date of Service: 09/11/23
--- NOTE | 2023-09-11 13:07 | MHC.CM.PN ---
IMM 09/11/23, Pt lives alone, she has 29 hours a week of [employer] services, she was going to [facility] for HD, but left there because she got infections. She plans to go back to doing HD at home, and she has the equipment to do it. For medical equipment she has a walker (she uses at home), a wheelchair (uses when she goes out), shower chair and dialysis machine. HCP is on file, confirmed: Beth Frye, PCP confirmed: Trey. Pt is able to get a ride home at ID. CM will follow and assist with DC plan.
[2023-09-11 14:27] VITALS: BP 141/63; PULSE 65; RESP 20; TEMP 37.2; O2SAT 97
[2023-09-11] MEDS: Morphine Sulfate 4 MG/ML CARTRIDGE IVPUSH ×2 (15:53→21:54)
[2023-09-11] MEDS: 0.9 % Sodium Chloride Flush 3 ML SYRINGE IVFLUSH (15:54)
[2023-09-11 15:56] VITALS: BP 140/67; PULSE 74; RESP 20; TEMP 36.6; O2SAT 97
--- NOTE | 2023-09-11 16:26 | P.PNIM_ITS ---
Subjective Subjective Date of Service: 09/11/23 Interval History: Good response to dialysis divalent improving. Complaints of right lower quadrant pain Review of Systems Denies chest pain Denies shortness of breath Denies nausea vomiting diarrhea Denies fever chills Physical Exam 2 Vital Signs: Vital Signs: Last Vital Signs Temp 97.8 F 09/11/23 15:56 Pulse 74 09/11/23 15:56 Resp 20 09/11/23 15:56 BP 140/67 H 09/11/23 15:56 Pulse Ox 97 09/11/23 15:56 O2 Del Method Room Air 09/11/23 15:56 BMI result Body Mass Index 47.0 Const: Other: Awake alert no acute distress Resp: Other: Clear to auscultation bilaterally no rales rhonchi or wheezes Cardio: Other: No S4; positive S1-S2; no S3 murmurs rubs or gallops GI: Other: Soft tender right lower quadrant with ecchymosis Extrem: Other: No edema bilaterally Objective Data Active Medications Acetaminophen (Acetaminophen 325 Mg Tablet) 650 mg PO Q6H PRN PRN Reason: Pain, Mild (Pain Scale 1-3) Albuterol Sulfate (Albuterol Sulfate 90 Mcg 8 Gm Inhaler) 2 puff INHALE Q4H PRN PRN Reason: for wheezing Amlodipine Besylate (Amlodipine Besylate 10 Mg Tablet) 10 mg PO DAILY [facility]; Protocol Last Admin: 09/11/23 16:01 Dose: Not Given Documented By: DARRYL Non-Admin Reason: Nausea Aspirin (Aspirin Enteric Coated 81 Mg Tablet.) 81 mg PO DAILY [facility] Last Admin: 09/11/23 16:01 Dose: Not Given Documented By: DARRYL Non-Admin Reason: Nausea Atorvastatin Calcium (Atorvastatin Calcium 40 Mg Tablet) 40 mg PO BEDTIME [facility] Last Admin: 09/10/23 22:16 Dose: 40 mg Documented By: MILE Calcitriol (Calcitriol 0.25 Mcg Capsule) 0.25 mcg PO TUTHSA [facility] Cinacalcet (Cinacalcet Hcl 30 Mg Tablet) 30 mg PO TUTA [facility] Clonazepam (Clonazepam 0.5 Mg Tablet) 0.5 mg PO DAILY [facility] Last Admin: 09/11/23 16:02 Dose: Not Given Documented By: DARRYL Non-Admin Reason: Nausea Clonazepam (Clonazepam 1 Mg Tablet) 1 mg PO BEDTIME [facility] Last Admin: 09/10/23 22:16 Dose: 1 mg Documented By: MILE Dextrose (Dextrose 50 % 25 Gm/50 Ml Syringe) 25 gm IVPUSH Q15M PRN; Protocol PRN Reason: per Hypoglycemia Standing Ord. Duloxetine HCl (Duloxetine Hcl 30 Mg Capsule.Dr) 30 mg PO DAILY [facility] Last Admin: 09/11/23 16:02 Dose: Not Given Documented By: DARRYL Non-Admin Reason: Nausea Epoetin Bunny (Epoetin Bunny 20,000 Unit/Ml Vial) 20,000 unit SUBCUT ONCE ONE Stop: 09/11/23 17:01 Glucose (Glucose Gel 15 Gm Gel..Gram.) 15 gm PO Q15M PRN; Protocol PRN Reason: per Hypoglycemia Standing Ord. Heparin Sodium (Porcine) (Heparin Sodium,Porcine 5,000 Unit/Ml Vial) 5,000 unit INTRACATH ONCE ONE Stop: 09/12/23 06:40 Dextrose (D5w) 1,000 mls @ 100 mls/hr IVCONT .Q10H [facility] Last Infusion: 09/11/23 11:35 Dose: 0 mls/hr Documented By: COLT Insulin Glargine (Insulin Glargine,Hum.Rec.Anlog 100 Unit/Ml 10 Ml Vial) 20 unit SUBCUT BEDTIME [facility] Insulin Human Lispro (Insulin Lispro 100 Unit/Ml 3 Ml Vial) 0 unit SUBCUT QIDACHS [facility]; Protocol Last Admin: 09/11/23 14:27 Dose: Not Given Documented By: COLT Non-Admin Reason: No Insulin Coverage Losartan Potassium (Losartan Potassium 50 Mg Tablet) 100 mg PO DAILY [facility]; Protocol Last Admin: 09/11/23 16:02 Dose: Not Given Documented By: DARRYL Non-Admin Reason: Nausea Metoprolol Succinate (Metoprolol Succinate Er 100 Mg Tab.Er.24h) 100 mg PO DAILY [facility]; Protocol Last Admin: 09/11/23 16:02 Dose: Not Given Documented By: DARRYL Non-Admin Reason: Nausea Montelukast Sodium (Montelukast Sodium 10 Mg Tablet) 10 mg PO BEDTIME [facility] Last Admin: 09/10/23 22:16 Dose: 10 mg Documented By: MILE Morphine Sulfate (Morphine Sulfate 4 Mg/Ml Cartridge) 4 mg IVPUSH Q4H PRN; Protocol PRN Reason: Pain, Severe (Pain Scale 7-10) Last Admin: 09/11/23 15:53 Dose: 4 mg Documented By: DARRYL Omeprazole (Omeprazole 20 Mg Capsule.Dr) 20 mg PO DAILY@0630 [facility] Last Admin: 09/11/23 05:49 Dose: 20 mg Documented By: MILE Ondansetron HCl (Ondansetron Hcl 4 Mg/2 Ml Vial) 4 mg IVPUSH Q8H PRN PRN Reason: Nausea and Vomiting Oxycodone HCl (Oxycodone Hcl Immed Release 5 Mg Tablet) 10 mg PO Q4H PRN PRN Reason: Pain, Moderate(Pain Scale 4-6) Senna (Sennosides 8.6 Mg Tablet) 17.2 mg PO BEDTIME PRN PRN Reason: Constipation Sevelamer Carbonate (Sevelamer Carbonate Tablet 800 Mg Tablet) 800 mg PO TIDWM PRN PRN Reason: WITH MEALS Sodium Bicarbonate (Sodium Bicarbonate 650 Mg Tablet) 650 mg PO TID [facility] Last Admin: 09/11/23 16:02 Dose: Not Given Documented By: DARRYL Non-Admin Reason: Nausea Sodium Chloride (0.9 % Sodium Chloride Flush 3 Ml Syringe) 3 ml IVFLUSH QSHIFT [facility] Last Admin: 09/11/23 15:54 Dose: 3 ml Documented By: DARRYL Trazodone HCl (Trazodone Hcl 100 Mg Tablet) 200 mg PO BEDTIME [facility] Last Admin: 09/10/23 22:15 Dose: 200 mg Documented By: MILE Labs 09/11/23 07:02 09/11/23 07:02 Labs: Laboratory Results - last 24 hr 09/10/23 09/10/23 09/10/23 14:31 16:00 21:17 MCV MCH MCHC RDW Plt Count MPV Immature Gran % (Auto) Neut % (Auto) Lymph % (Auto) [place] % (Auto) Eos % (Auto) Baso % (Auto) Lymph # (Auto) [place] # (Auto) Eos # (Auto) Baso # (Auto) Abs Immat Gran (auto) Absolute Neuts (auto) Absolute Nucleated RBC Nucleated RBC % (auto) Anion Gap 18 Estim Creat Clear Calc 13.5 Estimated GFR 6 POC Glucose 82 112 Random Glucose 134 H Calcium 9.2 09/10/23 09/11/23 09/11/23 21:50 07:02 07:06 MCV 81.8 MCH 29.0 MCHC 35.4 H RDW 14.9 Plt Count 215 MPV 10.1 Immature Gran % (Auto) 0.4 Neut % (Auto) 57.0 Lymph % (Auto) 27.8 [place] % (Auto) 10.8 Eos % (Auto) 3.2 Baso % (Auto) 0.8 Lymph # (Auto) 1.3 [place] # (Auto) 0.5 Eos # (Auto) 0.2 Baso # (Auto) 0.0 Abs Immat Gran (auto) 0.02 Absolute Neuts (auto) 2.7 Absolute Nucleated RBC 0.000 Nucleated RBC % (auto) 0.0 Anion Gap 17 Estim Creat Clear Calc 9.7 Estimated GFR 4 POC Glucose 133 H 118 H Random Glucose 111 Calcium 8.6 D 09/11/23 12:36 MCV MCH MCHC RDW Plt Count MPV Immature Gran % (Auto) Neut % (Auto) Lymph % (Auto) [place] % (Auto) Eos % (Auto) Baso % (Auto) Lymph # (Auto) [place] # (Auto) Eos # (Auto) Baso # (Auto) Abs Immat Gran (auto) Absolute Neuts (auto) Absolute Nucleated RBC Nucleated RBC % (auto) Anion Gap Estim Creat Clear Calc Estimated GFR POC Glucose 121 H Random Glucose Calcium Assessment and Plan (1) ESRD needing dialysis: Status: Acute (2) Coronary artery disease: Status: Acute Plan 43-year-old female with complicated past medical history including uncontrolled type 1 diabetes with ESRD on dialysis, diabetic polyneuropathy, hypertension, hyperlipidemia, mood disorder, coronary artery disease with history of NSTEMI (has appt with PVC regarding possible CABG on sunday), history of cauda equina syndrome with chronic bilateral lower extremity weakness, diabetic gastroparesis, moderate persistent asthma, who is morbidly obese with BMI greater than 47 admitted for ESRD on dialysis with hyperkalemia 1.Acute hyperkalemia- due to acute on chronic renal failure -resolved with hemodialysis -follow renals/divalents 2.Acute on chronic renal failure- non-oliguric -dialysis as per renal -Procrit 04099 units x 1 -renal supplements as ordered along with Bicarb -follow renals/divalents 3.Uncontrolled type 1 diabetes with hyperglycemia -acceptable control on current therapies.... Continue outpatient therapies -lispro correctionals scale -adjust as indicated 3.Moderate persistent asthma -stable and well compensated at this time 4.Hypertension -hold losartan in setting of acute on chronic renal failure. Continue metoprolol -add back therapies when appropriate 5.CAD -staple well compensated -continue ASA, beta-ángel, statin DVT prophylaxis- avoid heparin due to large hematoma LUE, SCPs, early ambulation Full code Patient requires ongoing hospitalization to facilitate dialysis secondary to missed episodes and specialty consultation Quality Stroke Does the patient have a stroke diagnosis?: No VTE Prior VTE?: No VTE Risk Level:: Medical - moderate - high VTE Device Contraindication: Treatment Not Indicated VTE Drug Contraindication: N/A - Med Ordered
[2023-09-11 16:45] LABS: Glucose, Whole Blood 150 mg/dL (60-115)
[2023-09-11] MEDS: clonazePAM 0.5 MG TABLET PO (16:47)
[2023-09-11] MEDS: amLODIPine Besylate 10 MG TABLET PO (16:48)
[2023-09-11] MEDS: Aspirin Enteric Coated 81 MG TABLET.DR PO (16:48)
[2023-09-11] MEDS: Metoprolol Succinate ER 100 MG TAB.ER.24H PO (16:48)
[2023-09-11 18:58] VITALS: BP 134/63; PULSE 74; RESP 20; TEMP 37; O2SAT 97
[2023-09-11] MEDS: oxyCODONE HCl Immed Release 5 MG TABLET 10 MG PO (19:16)
[2023-09-11 20:00] LABS: Glucose, Whole Blood 179 mg/dL (60-115)
[2023-09-11] MEDS: Sodium Bicarbonate 650 MG TABLET PO (21:43)
[2023-09-11] MEDS: Montelukast Sodium 10 MG TABLET PO (21:43)
[2023-09-11] MEDS: Atorvastatin Calcium 40 MG TABLET PO (21:43)
[2023-09-11] MEDS: calcitrioL 0.25 MCG CAPSULE PO (21:44)
[2023-09-11] MEDS: Cinacalcet HCl 30 MG TABLET PO (21:44)
[2023-09-11] MEDS: traZODone HCL 100 MG TABLET 200 MG PO (21:44)
[2023-09-11] MEDS: Insulin Glargine,Hum.rec.anlog 100 UNIT/ML 10 ML VIAL 20 UNIT SUBCUT (21:47)
[2023-09-11] MEDS: Insulin Lispro 100 UNIT/ML 3 ML VIAL SUBCUT (21:48)
[2023-09-12] VITALS (8 sets, daily range): BP systolic 88–122; BP diastolic 45–68; PULSE 57–67; RESP 16–20; TEMP 36.3–37.6; O2SAT 94–98
[2023-09-12] MEDS: 0.9 % Sodium Chloride Flush 3 ML SYRINGE IVFLUSH ×2 (00:01→08:09)
[2023-09-12] MEDS: Omeprazole 20 MG CAPSULE.DR PO (06:09)
[2023-09-12] MEDS: Heparin Sodium,Porcine 5,000 UNIT/ML VIAL 5000 UNIT INTRACATH (06:09)
[2023-09-12] MEDS: oxyCODONE HCl Immed Release 5 MG TABLET 10 MG PO ×2 (06:12→13:01)
[2023-09-12 07:34] LABS: Creatinine Clr Calc Pharmacy 13.8; Estimated Glomerular Filt Rate 6
[2023-09-12 07:35] LABS: Alanine Aminotransferase 10 U/L (0-31); Albumin Level 3.2 g/dL (3.5-5.0); Alkaline Phosphatase 98 U/L (39-117); Anion Gap 15 (12-20); Aspartate Amino Transferase 11 U/L (5-31); Bilirubin Total 0.4 mg/dL (0.0-1.0); Blood Urea Nitrogen 31 mg/dL (9-16); Calcium 8.3 mg/dL (8.4-10.2); Carbon Dioxide 23 mmol/L (22-29); Chloride 99 mmol/L (96-108); Glucose Fasting 64 mg/dL (60-99); Potassium 3.9 mmol/L (3.3-5.1); Sodium 133 mmol/L (135-145); Total Protein 6.1 g/dL (6.5-8.0)
[2023-09-12] MEDS: Morphine Sulfate 4 MG/ML CARTRIDGE IVPUSH ×3 (08:08→21:09)
--- NOTE | 2023-09-12 08:10 | P.CDIM_ITS ---
PROVIDER RESPONSE TEXT: To clarify, the appropriate diagnosis supported by the clinical indicators: Hypokalemia: resolved QUERY TEXT: PHYSICIAN'S DOCUMENTATION REQUEST Date of Query: 09/12/2023 07:52 AM EDT Patient Name: Phoenix Leach Admit Date: 09/10/2023 Dear Cristino Pillai, A review of the medical record indicates additional documentation may be needed. Please review below and update the documentation accordingly. Clinical Indicators: LAB FINDINGS 09/09 - potassium 2.9 L 3.9 Based on the above, is there a diagnosis that correlates with the above labs: Hypokalemia resolved, possible, suspected Labs indicate a diagnosis of (please specify) Other (explain) Clinically unable to determine (explain) Thank you, Shaunna Smith, CCS, CDIS Use of terms such as suspected, likely, concern for, or probable (associated with a specific diagnosi s that is being evaluated, monitored, or treated as if it exists) are acceptable and can be coded in the inpatient se tting, when documented at the time of discharge. Please use your independent medical judgment in providing your response. THIS QUERY IS PART OF THE PERMANENT MEDICAL RECORD
[2023-09-12 08:23] LABS: Glucose, Whole Blood 110 mg/dL (60-115)
--- NOTE | 2023-09-12 12:46 | PM.PNNEP ---
Subjective Subjective Date of Service: 09/12/23 Interval history: Seen on dialysis this morning. Feels better. Discussed with the supervisor riveting Physical Exam Vital Signs: Vital Signs: Last Vital Signs Temp 97.9 F 09/12/23 07:28 Pulse 61 09/12/23 07:28 Resp 18 09/12/23 07:28 BP 117/61 09/12/23 07:28 Pulse Ox 95 09/12/23 07:28 O2 Del Method Room Air 09/12/23 07:28 BMI result Body Mass Index 47.0 Const: General: comfortable and no acute distress Orientation/consciousness: patient oriented x3 HEENT: Head: Yes normocephalic Mouth: Normal oral and palatal mucosa present Eyes: EOM: EOMs intact bilaterally Neck: Neck: Yes supple Resp: Auscultation: clear to auscultation bilaterally Cardio: Jugular venous distension: no JVD Rate: regular rate GI: Palpation (GI): Soft to palpation Auscultation: normal bowel sounds Skin: General skin exam: no rashes or lesions noted Neuro: General: patient oriented x3 Objective Data Labs 09/11/23 07:02 09/12/23 06:39 Labs: Laboratory Results - last 24 hr 09/11/23 09/11/23 09/12/23 16:32 19:53 06:39 Hold Purple Top SEE NOTE Sodium 133 L Potassium 3.9 Chloride 99 Carbon Dioxide 23 Anion Gap 15 BUN 31 H Creatinine 7.41 H* Estim Creat Clear Calc 13.8 Estimated GFR 6 POC Glucose 150 H 179 H Fasting Glucose 64 Calcium 8.3 L Total Bilirubin 0.4 AST 11 ALT 10 Alkaline Phosphatase 98 Total Protein 6.1 L Albumin 3.2 L 09/12/23 08:07 Hold Purple Top Sodium Potassium Chloride Carbon Dioxide Anion Gap BUN Creatinine Estim Creat Clear Calc Estimated GFR POC Glucose 110 Fasting Glucose Calcium Total Bilirubin AST ALT Alkaline Phosphatase Total Protein Albumin Microbiology Microbiology Results: Microbiology 09/10/23 15:41 Blood - Venous Blood Culture - Preliminary No growth after 24 hours. 09/10/23 15:41 Blood - Venous Blood Culture - Preliminary No growth after 24 hours. Procedures Date of Service Date of Service: 09/12/23 Assessment & Plan Assessment and plan (1) ESRD needing dialysis: Status: Acute Plan Has ESRD from diabetic nephropathy Had been getting home hemodialysis in the past and in center recently Had issues with the access and new PermCath was placed 2 days ago by IR Was hyperkalemic and was dialyzed . Seen on dialysis this morning. Outpatient home hemo RN was contacted for a spot- not approved yet Procrit 30719 units subcutaneous once a week Renvela 1600 mg 3 times a day with meals. Low potassium, low phosphorus diet with a fluid restriction Shall closely follow-up during her current hospital stay. Progress Note: Quality Stroke Does the patient have a stroke diagnosis?: No
[2023-09-12 12:54] LABS: Glucose, Whole Blood 121 mg/dL (60-115)
[2023-09-12] MEDS: DULoxetine HCl 30 MG CAPSULE.DR PO (13:02)
[2023-09-12] MEDS: polyethylene glycoL 3350 17 GM POWD.PACK PO (13:02)
[2023-09-12] MEDS: Aspirin Enteric Coated 81 MG TABLET.DR PO (13:02)
[2023-09-12] MEDS: Sodium Bicarbonate 650 MG TABLET PO ×2 (13:02→21:09)
--- NOTE | 2023-09-12 13:51 | HO.PM.IMPN ---
Subjective Subjective Date of Service: 09/12/23 Interval History: Notes improvement since admission. Still complains of right lower quadrant abdominal pain however CT failed to demonstrate any acute abnormalities Review of Systems Denies chest pain Denies shortness of breath Denies nausea vomiting diarrhea Denies fever chills Physical Exam Vital Signs: Vital Signs: Last Vital Signs Temp 99.6 F 09/12/23 12:58 Pulse 65 09/12/23 12:58 Resp 18 09/12/23 12:58 BP 90/50 L 09/12/23 12:58 Pulse Ox 96 09/12/23 12:58 O2 Del Method Room Air 09/12/23 12:58 BMI result Body Mass Index 47.0 Const: Other: Awake alert no acute distress Resp: Other: Clear to auscultation bilaterally no rales rhonchi or wheezes Cardio: Other: No S4; positive S1-S2; no S3 murmurs rubs or gallops GI: Other: Soft tender right lower quadrant with ecchymosis Extrem: Other: No edema bilaterally Objective Data Active Medications Acetaminophen (Acetaminophen 325 Mg Tablet) 650 mg PO Q6H PRN PRN Reason: Pain, Mild (Pain Scale 1-3) Albuterol Sulfate (Albuterol Sulfate 90 Mcg 8 Gm Inhaler) 2 puff INHALE Q4H PRN PRN Reason: for wheezing Amlodipine Besylate (Amlodipine Besylate 10 Mg Tablet) 10 mg PO DAILY [facility]; Protocol Last Admin: 09/12/23 13:08 Dose: Not Given Documented By: ERIKA Non-Admin Reason: Decreased Blood Pressure Aspirin (Aspirin Enteric Coated 81 Mg Tablet.) 81 mg PO DAILY [facility] Last Admin: 09/12/23 13:02 Dose: 81 mg Documented By: ERIKA Atorvastatin Calcium (Atorvastatin Calcium 40 Mg Tablet) 40 mg PO BEDTIME [facility] Last Admin: 09/11/23 21:43 Dose: 40 mg Documented By: DARRYL Calcitriol (Calcitriol 0.25 Mcg Capsule) 0.25 mcg PO [facility] Last Admin: 09/11/23 21:44 Dose: 0.25 mcg Documented By: DARRYL Cinacalcet (Cinacalcet Hcl 30 Mg Tablet) 30 mg PO [facility] Last Admin: 09/11/23 21:44 Dose: 30 mg Documented By: DARRYL Clonazepam (Clonazepam 0.5 Mg Tablet) 0.5 mg PO DAILY [facility] Last Admin: 09/12/23 13:08 Dose: Not Given Documented By: ERIKA Non-Admin Reason: Decreased Blood Pressure Clonazepam (Clonazepam 1 Mg Tablet) 1 mg PO BEDTIME [facility] Last Admin: 09/11/23 22:04 Dose: Not Given Documented By: DARRYL Non-Admin Reason: Previously Administered Dextrose (Dextrose 50 % 25 Gm/50 Ml Syringe) 25 gm IVPUSH Q15M PRN; Protocol PRN Reason: per Hypoglycemia Standing Ord. Duloxetine HCl (Duloxetine Hcl 30 Mg Capsule.Dr) 30 mg PO DAILY [facility] Last Admin: 09/12/23 13:02 Dose: 30 mg Documented By: ERIKA Glucose (Glucose Gel 15 Gm Gel..Gram.) 15 gm PO Q15M PRN; Protocol PRN Reason: per Hypoglycemia Standing Ord. Insulin Glargine (Insulin Glargine,Hum.Rec.Anlog 100 Unit/Ml 10 Ml Vial) 20 unit SUBCUT BEDTIME [facility] Last Admin: 09/11/23 21:47 Dose: 20 unit Documented By: DARRYL Insulin Human Lispro (Insulin Lispro 100 Unit/Ml 3 Ml Vial) 0 unit SUBCUT QIDACHS [facility]; Protocol Last Admin: 09/12/23 13:08 Dose: Not Given Documented By: ERIKA Non-Admin Reason: No Insulin Coverage Losartan Potassium (Losartan Potassium 50 Mg Tablet) 100 mg PO DAILY [facility]; Protocol Last Admin: 09/12/23 13:08 Dose: Not Given Documented By: ERIKA Non-Admin Reason: Decreased Blood Pressure Metoprolol Succinate (Metoprolol Succinate Er 100 Mg Tab.Er.24h) 100 mg PO DAILY [facility]; Protocol Last Admin: 09/12/23 13:08 Dose: Not Given Documented By: ERIKA Non-Admin Reason: Decreased Blood Pressure Montelukast Sodium (Montelukast Sodium 10 Mg Tablet) 10 mg PO BEDTIME [facility] Last Admin: 09/11/23 21:43 Dose: 10 mg Documented By: DARRYL Morphine Sulfate (Morphine Sulfate 4 Mg/Ml Cartridge) 4 mg IVPUSH Q4H PRN; Protocol PRN Reason: Pain, Severe (Pain Scale 7-10) Last Admin: 09/12/23 08:08 Dose: 4 mg Documented By: ERIKA Omeprazole (Omeprazole 20 Mg Capsule.) 20 mg PO DAILY@0630 [facility] Last Admin: 09/12/23 06:09 Dose: 20 mg Documented By: EPIFANIO Ondansetron HCl (Ondansetron Hcl 4 Mg/2 Ml Vial) 4 mg IVPUSH Q8H PRN PRN Reason: Nausea and Vomiting Oxycodone HCl (Oxycodone Hcl Immed Release 5 Mg Tablet) 10 mg PO Q4H PRN PRN Reason: Pain, Moderate(Pain Scale 4-6) Last Admin: 09/12/23 13:01 Dose: 10 mg Documented By: ERIKA Polyethylene Glycol (Polyethylene Glycol 3350 17 Gm Powd.Pack) 17 gm PO DAILY [facility] Last Admin: 09/12/23 13:02 Dose: 17 gm Documented By: ERIKA Senna (Sennosides 8.6 Mg Tablet) 17.2 mg PO BEDTIME PRN PRN Reason: Constipation Sevelamer Carbonate (Sevelamer Carbonate Tablet 800 Mg Tablet) 800 mg PO TIDWM PRN PRN Reason: WITH MEALS Sodium Bicarbonate (Sodium Bicarbonate 650 Mg Tablet) 650 mg PO TID [facility] Last Admin: 09/12/23 13:02 Dose: 650 mg Documented By: ERIKA Sodium Chloride (0.9 % Sodium Chloride Flush 3 Ml Syringe) 3 ml IVFLUSH QSHIFT [facility] Last Admin: 09/12/23 08:09 Dose: 3 ml Documented By: ERIKA Trazodone HCl (Trazodone Hcl 100 Mg Tablet) 200 mg PO BEDTIME [facility] Last Admin: 09/11/23 21:44 Dose: 200 mg Documented By: DARRYL Labs 09/11/23 07:02 09/12/23 06:39 Labs: Laboratory Results - last 24 hr 09/11/23 09/11/23 09/12/23 16:32 19:53 06:39 Hold Purple Top SEE NOTE Anion Gap 15 Estim Creat Clear Calc 13.8 Estimated GFR 6 POC Glucose 150 H 179 H Fasting Glucose 64 Calcium 8.3 L Total Bilirubin 0.4 AST 11 ALT 10 Alkaline Phosphatase 98 Total Protein 6.1 L Albumin 3.2 L 09/12/23 09/12/23 08:07 12:51 Hold Purple Top Anion Gap Estim Creat Clear Calc Estimated GFR POC Glucose 110 121 H Fasting Glucose Calcium Total Bilirubin AST ALT Alkaline Phosphatase Total Protein Albumin Microbiology Microbiology Results: Microbiology 09/10/23 15:41 Blood Culture - Preliminary Blood - Venous No growth after 24 hours. 09/10/23 15:41 Blood Culture - Preliminary Blood - Venous No growth after 24 hours. Assessment and Plan (1) ESRD needing dialysis: Status: Acute (2) Uncontrolled diabetes mellitus with hyperglycemia, with long-term current use of insulin: Status: Acute Plan 43-year-old female with complicated past medical history including uncontrolled type 1 diabetes with ESRD on dialysis, diabetic polyneuropathy, hypertension, hyperlipidemia, mood disorder, coronary artery disease with history of NSTEMI (has appt with PVC regarding possible CABG on sunday), history of cauda equina syndrome with chronic bilateral lower extremity weakness, diabetic gastroparesis, moderate persistent asthma, who is morbidly obese with BMI greater than 47 admitted for ESRD on dialysis with hyperkalemia 1.Acute hyperkalemia- due to acute on chronic renal failure -resolved with hemodialysis -follow renals/divalents -HD as per renal 2.Acute on chronic renal failure- non-oliguric -dialysis as per renal -Procrit 22023 units x 1 given -renal supplements as ordered along with Bicarb -follow renals/divalents 3.Uncontrolled type 1 diabetes with hyperglycemia -acceptable control on current therapies.... Continue outpatient therapies -lispro correctionals scale -adjust as indicated 3.Moderate persistent asthma -stable and well compensated at this time 4.Hypertension -hold losartan in setting of acute on chronic renal failure. Continue metoprolol -add back therapies when appropriate 5.CAD -staple well compensated -continue ASA, beta-ángel, statin DVT prophylaxis- avoid heparin due to large hematoma LUE, SCPs, early ambulation Full code Patient requires ongoing hospitalization to facilitate dialysis secondary to missed episodes and specialty consultation Quality Stroke Does the patient have a stroke diagnosis?: No VTE Prior VTE?: No VTE Risk Level:: Medical - moderate - high VTE Device Contraindication: Treatment Not Indicated VTE Drug Contraindication: N/A - Med Ordered
--- NOTE | 2023-09-12 14:13 | MHC.CM.PN ---
EMR reviewed and per MD rounds, pt is not medically cleared for D/C due to management of ESRD.
[2023-09-12 18:21] LABS: Glucose, Whole Blood 273 mg/dL (60-115)
[2023-09-12] MEDS: Insulin Lispro 100 UNIT/ML 3 ML VIAL SUBCUT ×2 (18:25→21:09)
[2023-09-12 20:41] LABS: Glucose, Whole Blood 247 mg/dL (60-115)
[2023-09-12] MEDS: traZODone HCL 100 MG TABLET 200 MG PO (21:08)
[2023-09-12] MEDS: Atorvastatin Calcium 40 MG TABLET PO (21:09)
[2023-09-12] MEDS: clonazePAM 1 MG TABLET PO (21:09)
[2023-09-12] MEDS: Insulin Glargine,Hum.rec.anlog 100 UNIT/ML 10 ML VIAL 20 UNIT SUBCUT (21:09)
[2023-09-12] MEDS: Montelukast Sodium 10 MG TABLET PO (21:09)
[2023-09-13 04:00] VITALS: BP 125/57; PULSE 62; RESP 17; TEMP 36.4; O2SAT 95
[2023-09-13] MEDS: Omeprazole 20 MG CAPSULE.DR PO (06:28)
[2023-09-13] MEDS: 0.9 % Sodium Chloride Flush 3 ML SYRINGE IVFLUSH ×4 (06:29→20:26)
[2023-09-13] MEDS: oxyCODONE HCl Immed Release 5 MG TABLET 10 MG PO ×4 (06:31→21:25)
[2023-09-13 06:59] VITALS: BP 96/54; PULSE 66; RESP 20; TEMP 37; O2SAT 96
[2023-09-13 07:01] LABS: Glucose, Whole Blood 112 mg/dL (60-115)
[2023-09-13] MEDS: Sevelamer Carbonate Tablet 800 MG TABLET PO (09:01)
[2023-09-13] MEDS: Sodium Bicarbonate 650 MG TABLET PO ×3 (09:01→20:16)
[2023-09-13] MEDS: DULoxetine HCl 30 MG CAPSULE.DR PO (09:01)
[2023-09-13] MEDS: Aspirin Enteric Coated 81 MG TABLET.DR PO (09:01)
[2023-09-13] MEDS: clonazePAM 0.5 MG TABLET PO (09:01)
[2023-09-13 10:56] LABS: Glucose, Whole Blood 145 mg/dL (60-115)
[2023-09-13 11:01] VITALS: BP 106/51; PULSE 67; RESP 18; TEMP 37.2; O2SAT 95
[2023-09-13] MEDS: Morphine Sulfate 4 MG/ML CARTRIDGE IVPUSH (11:13)
--- NOTE | 2023-09-13 11:46 | P.PNNP_ITS ---
Subjective Subjective Date of Service: 09/13/23 Interval history: Seen this morning. All recent data reviewed; D/W hospitalist Physical Exam 2 Vital Signs: Vital Signs: Last Vital Signs Temp 99.0 F 09/13/23 11:01 Pulse 67 09/13/23 11:01 Resp 18 09/13/23 11:01 BP 106/51 L 09/13/23 11:01 Pulse Ox 95 09/13/23 11:01 O2 Del Method Room Air 09/13/23 11:01 BMI result Body Mass Index 47.0 Const: General: comfortable and no acute distress O rientation/consciousness: patient oriented x3 HEENT: Head: Yes normocephalic Mouth: Normal oral and palatal mucosa present Eyes: EOM: EOMs intact bilaterally Neck: Neck: Yes supple Resp: Auscultation: clear to auscultation bilaterally Cardio: Jugular venous distension: no JVD Rate: regular rate GI: Palpation (GI): Soft to palpation Auscultation: normal bowel sounds Skin: General skin exam: no rashes or lesions noted Neuro: General: patient oriented x3 Objective Data Labs 09/11/23 07:02 09/12/23 06:39 Labs: Laboratory Results - last 24 hr 09/12/23 09/12/23 09/12/23 12:51 18:17 20:37 POC Glucose 121 H 273 H 247 H 09/13/23 09/13/23 06:57 10:52 POC Glucose 112 145 H Microbiology Microbiology Results: Microbiology 09/10/23 15:41 Blood - Venous Blood Culture - Preliminary No growth after 48 hours. 09/10/23 15:41 Blood - Venous Blood Culture - Preliminary No growth after 48 hours. Procedures Date of Service Date of Service: 09/13/23 Assessment & Plan Assessment and plan (1) ESRD needing dialysis: Status: Acute Plan Has ESRD from diabetic nephropathy Had been getting home hemodialysis in the past and in center recently Had issues with the access and new PermCath was placed 3 days ago by IR Was hyperkalemic and was dialyzed . Procrit 40805 units subcutaneous once a week Renvela 1600 mg 3 times a day with meals Low potassium, low phosphorus diet with a fluid restriction Shall closely follow-up during her current hospital stay. Progress Note: Quality Stroke Does the patient have a stroke diagnosis?: No
--- NOTE | 2023-09-13 15:09 | HO.PM.IMPN ---
Subjective Subjective Date of Service: 09/13/23 Interval History: No acute issues overnight. Tolerating dialysis Review of Systems Denies chest pain Denies shortness of breath Denies nausea vomiting diarrhea Denies fever chills Physical Exam Vital Signs: Vital Signs: Last Vital Signs Temp 99.0 F 09/13/23 11:01 Pulse 67 09/13/23 11:01 Resp 18 09/13/23 11:01 BP 106/51 L 09/13/23 11:01 Pulse Ox 95 09/13/23 11:01 O2 Del Method Room Air 09/13/23 11:01 BMI result Body Mass Index 47.0 Const: Other: Awake alert no acute distress Resp: Other: Clear to auscultation bilaterally no rales rhonchi or wheezes Cardio: Other: No S4; positive S1-S2; no S3 murmurs rubs or gallops GI: Other: Soft tender right lower quadrant with ecchymosis Extrem: Other: No edema bilaterally Objective Data Active Medications Acetaminophen (Acetaminophen 325 Mg Tablet) 650 mg PO Q6H PRN PRN Reason: Pain, Mild (Pain Scale 1-3) Albuterol Sulfate (Albuterol Sulfate 90 Mcg 8 Gm Inhaler) 2 puff INHALE Q4H PRN PRN Reason: for wheezing Amlodipine Besylate (Amlodipine Besylate 10 Mg Tablet) 10 mg PO DAILY [facility]; Protocol Last Admin: 09/13/23 09:00 Dose: Not Given Documented By: BERTA Non-Admin Reason: DECREASED BLOOD PRESSURE Aspirin (Aspirin Enteric Coated 81 Mg Tablet.) 81 mg PO DAILY [facility] Last Admin: 09/13/23 09:01 Dose: 81 mg Documented By: BERTA Atorvastatin Calcium (Atorvastatin Calcium 40 Mg Tablet) 40 mg PO BEDTIME [facility] Last Admin: 09/12/23 21:09 Dose: 40 mg Documented By: EPIFANIO Calcitriol (Calcitriol 0.25 Mcg Capsule) 0.25 mcg PO [facility] Last Admin: 09/11/23 21:44 Dose: 0.25 mcg Documented By: DARRYL Cinacalcet (Cinacalcet Hcl 30 Mg Tablet) 30 [facility] Last Admin: 09/11/23 21:44 Dose: 30 mg Documented By: DARRYL Clonazepam (Clonazepam 0.5 Mg Tablet) 0.5 mg PO DAILY [facility] Last Admin: 09/13/23 09:01 Dose: 0.5 mg Documented By: BERTA Clonazepam (Clonazepam 1 Mg Tablet) 1 mg PO BEDTIME [facility] Last Admin: 09/12/23 21:09 Dose: 1 mg Documented By: EPIFANIO Dextrose (Dextrose 50 % 25 Gm/50 Ml Syringe) 25 gm IVPUSH Q15M PRN; Protocol PRN Reason: per Hypoglycemia Standing Ord. Duloxetine HCl (Duloxetine Hcl 30 Mg Capsule.) 30 mg PO DAILY [facility] Last Admin: 09/13/23 09:01 Dose: 30 mg Documented By: BERTA Glucose (Glucose Gel 15 Gm Gel..Gram.) 15 gm PO Q15M PRN; Protocol PRN Reason: per Hypoglycemia Standing Ord. Insulin Glargine (Insulin Glargine,Hum.Rec.Anlog 100 Unit/Ml 10 Ml Vial) 20 unit SUBCUT BEDTIME [facility] Last Admin: 09/12/23 21:09 Dose: 20 unit Documented By: EPIFANIO Insulin Human Lispro (Insulin Lispro 100 Unit/Ml 3 Ml Vial) 0 unit SUBCUT QIDACHS [facility]; Protocol Last Admin: 09/13/23 11:12 Dose: Not Given Documented By: BERTA Non-Admin Reason: No Insulin Coverage Losartan Potassium (Losartan Potassium 50 Mg Tablet) 100 mg PO DAILY [facility]; Protocol Last Admin: 09/13/23 09:00 Dose: Not Given Documented By: BERTA Non-Admin Reason: DECREASED BP Metoprolol Succinate (Metoprolol Succinate Er 100 Mg Tab.Er.24h) 100 mg PO DAILY [facility]; Protocol Last Admin: 09/13/23 09:06 Dose: Not Given Documented By: BERTA Non-Admin Reason: DECREASED BLOOD PRESSURE Montelukast Sodium (Montelukast Sodium 10 Mg Tablet) 10 mg PO BEDTIME [facility] Last Admin: 09/12/23 21:09 Dose: 10 mg Documented By: EPIFANIO Morphine Sulfate (Morphine Sulfate 4 Mg/Ml Cartridge) 4 mg IVPUSH Q4H PRN; Protocol PRN Reason: Pain, Severe (Pain Scale 7-10) Last Admin: 09/13/23 11:13 Dose: 4 mg Documented By: BERTA Omeprazole (Omeprazole 20 Mg Capsule.) 20 mg PO DAILY@0630 [facility] Last Admin: 09/13/23 06:28 Dose: 20 mg Documented By: EPIFANIO Ondansetron HCl (Ondansetron Hcl 4 Mg/2 Ml Vial) 4 mg IVPUSH Q8H PRN PRN Reason: Nausea and Vomiting Oxycodone HCl (Oxycodone Hcl Immed Release 5 Mg Tablet) 10 mg PO Q4H PRN PRN Reason: Pain, Moderate(Pain Scale 4-6) Last Admin: 09/13/23 13:07 Dose: 10 mg Documented By: BERTA Polyethylene Glycol (Polyethylene Glycol 3350 17 Gm Powd.Pack) 17 gm PO DAILY [facility] Last Admin: 09/13/23 09:07 Dose: Not Given Documented By: BERTA Non-Admin Reason: Patient Refused Senna (Sennosides 8.6 Mg Tablet) 17.2 mg PO BEDTIME PRN PRN Reason: Constipation Sevelamer Carbonate (Sevelamer Carbonate Tablet 800 Mg Tablet) 800 mg PO TIDWM PRN PRN Reason: WITH MEALS Last Admin: 09/13/23 09:01 Dose: 800 mg Documented By: BERTA Sodium Bicarbonate (Sodium Bicarbonate 650 Mg Tablet) 650 mg PO TID [facility] Last Admin: 09/13/23 13:07 Dose: 650 mg Documented By: BERTA Sodium Chloride (0.9 % Sodium Chloride Flush 3 Ml Syringe) 3 ml IVFLUSH QSHIFT [facility] Last Admin: 09/13/23 09:01 Dose: 3 ml Documented By: BERTA Trazodone HCl (Trazodone Hcl 100 Mg Tablet) 200 mg PO BEDTIME [facility] Last Admin: 09/12/23 21:08 Dose: 200 mg Documented By: EPIFANIO Labs 09/11/23 07:02 09/12/23 06:39 Labs: Laboratory Results - last 24 hr 09/12/23 09/12/23 09/13/23 18:17 20:37 06:57 POC Glucose 273 H 247 H 112 09/13/23 10:52 POC Glucose 145 H Microbiology Microbiology Results: Microbiology 09/10/23 15:41 Blood Culture - Preliminary Blood - Venous No growth after 48 hours. 09/10/23 15:41 Blood Culture - Preliminary Blood - Venous No growth after 48 hours. Assessment and Plan (1) ESRD needing dialysis: Status: Acute (2) 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: Status: Acute Plan 43-year-old female with complicated past medical history including uncontrolled type 1 diabetes with ESRD on dialysis, diabetic polyneuropathy, hypertension, hyperlipidemia, mood disorder, coronary artery disease with history of NSTEMI (has appt with PVC regarding possible CABG on sunday), history of cauda equina syndrome with chronic bilateral lower extremity weakness, diabetic gastroparesis, moderate persistent asthma, who is morbidly obese with BMI greater than 47 admitted for ESRD on dialysis with hyperkalemia 1.Acute hyperkalemia- due to acute on chronic renal failure -resolved with hemodialysis -follow renals/divalents -HD as per renal... Need to arrange outpatient renal chair 2.Acute on chronic renal failure- non-oliguric -dialysis as per renal -Procrit 26393 units x 1 given -renal supplements as ordered along with Bicarb -follow renals/divalents 3.Uncontrolled type 1 diabetes with hyperglycemia -acceptable control on current therapies.... Continue outpatient therapies -lispro correctionals scale -adjust as indicated 3.Moderate persistent asthma -stable and well compensated at this time 4.Hypertension -hold losartan in setting of acute on chronic renal failure. Continue metoprolol -add back therapies when appropriate 5.CAD -staple well compensated -continue ASA, beta-ángel, statin DVT prophylaxis- avoid heparin due to large hematoma LUE, SCPs, early ambulation Full code Patient requires ongoing hospitalization to facilitate dialysis secondary to missed episodes and specialty consultation as well as finalizing outpatient chair for dialysis Quality Stroke Does the patient have a stroke diagnosis?: No VTE Prior VTE?: No VTE Risk Level:: Medical - moderate - high VTE Device Contraindication: Treatment Not Indicated VTE Drug Contraindication: N/A - Med Ordered
[2023-09-13 15:42] VITALS: BP 98/50; PULSE 65; RESP 16; TEMP 36.9; O2SAT 93
[2023-09-13 16:28] LABS: Glucose, Whole Blood 111 mg/dL (60-115)
[2023-09-13 19:14] LABS: Glucose, Whole Blood 151 mg/dL (60-115)
[2023-09-13 19:43] VITALS: BP 103/52; PULSE 68; RESP 20; TEMP 37.2; O2SAT 98
[2023-09-13] MEDS: clonazePAM 1 MG TABLET PO (20:16)
[2023-09-13] MEDS: Montelukast Sodium 10 MG TABLET PO (20:16)
[2023-09-13] MEDS: Insulin Lispro 100 UNIT/ML 3 ML VIAL SUBCUT (20:16)
[2023-09-13] MEDS: Atorvastatin Calcium 40 MG TABLET PO (20:16)
[2023-09-13] MEDS: traZODone HCL 100 MG TABLET 200 MG PO (20:16)
[2023-09-13] MEDS: Insulin Glargine,Hum.rec.anlog 100 UNIT/ML 10 ML VIAL 20 UNIT SUBCUT (20:17)
[2023-09-13] MEDS: Cinacalcet HCl 30 MG TABLET PO (20:20)
[2023-09-13] MEDS: calcitrioL 0.25 MCG CAPSULE PO (20:20)
[2023-09-13 23:47] VITALS: BP 104/53; PULSE 67; RESP 18; TEMP 37.1; O2SAT 94
[2023-09-14] MEDS: oxyCODONE HCl Immed Release 5 MG TABLET 10 MG PO ×5 (02:14→20:36)
[2023-09-14 04:00] VITALS: BP 110/57; PULSE 68; RESP 18; TEMP 37; O2SAT 98
[2023-09-14] MEDS: Omeprazole 20 MG CAPSULE.DR PO (06:26)
[2023-09-14 07:29] VITALS: BP 104/51; PULSE 70; RESP 20; TEMP 36.9; O2SAT 99
[2023-09-14 07:39] LABS: Glucose, Whole Blood 92 mg/dL (60-115)
[2023-09-14] MEDS: Sodium Bicarbonate 650 MG TABLET PO ×3 (08:33→20:34)
[2023-09-14] MEDS: Aspirin Enteric Coated 81 MG TABLET.DR PO (08:33)
[2023-09-14] MEDS: DULoxetine HCl 30 MG CAPSULE.DR PO (08:33)
[2023-09-14] MEDS: clonazePAM 0.5 MG TABLET PO (08:33)
[2023-09-14] MEDS: Sevelamer Carbonate Tablet 800 MG TABLET PO (08:36)
[2023-09-14] MEDS: 0.9 % Sodium Chloride Flush 3 ML SYRINGE IVFLUSH ×3 (09:11→20:44)
[2023-09-14 11:44] LABS: Glucose, Whole Blood 112 mg/dL (60-115)
--- NOTE | 2023-09-14 12:17 | P.PNNP_ITS ---
Subjective Subjective Date of Service: 09/14/23 Interval history: No acute issues overnight. Tolerating dialysis Physical Exam 2 Vital Signs: Vital Signs: Last Vital Signs Temp 98.4 F 09/14/23 07:29 Pulse 70 09/14/23 07:29 Resp 20 09/14/23 07:29 BP 104/51 L 09/14/23 07:29 Pulse Ox 99 09/14/23 07:29 O2 Del Method Room Air 09/14/23 07:29 BMI result Body Mass Index 47.0 Const: General: comfortable and no acute distress O rientation/consciousness: patient oriented x3 HEENT: Head: Yes normocephalic Mouth: Normal oral and palatal mucosa present Eyes: EOM: EOMs intact bilaterally Neck: Neck: Yes supple Resp: Auscultation: clear to auscultation bilaterally Cardio: Jugular venous distension: no JVD Rate: regular rate GI: Palpation (GI): Soft to palpation Auscultation: normal bowel sounds : General: Yes no CVA tenderness Back/Spine/Pelvis: Back: no CVA tenderness Skin: General skin exam: no rashes or lesions noted Neuro: General: patient oriented x3 Objective Data Labs 09/11/23 07:02 09/12/23 06:39 Labs: Laboratory Results - last 24 hr 09/13/23 09/13/23 09/14/23 16:24 19:11 07:30 POC Glucose 111 151 H 92 09/14/23 11:41 POC Glucose 112 Microbiology Microbiology Results: Microbiology 09/10/23 15:41 Blood - Venous Blood Culture - Preliminary No growth after 48 hours. 09/10/23 15:41 Blood - Venous Blood Culture - Preliminary No growth after 48 hours. Procedures Date of Service Date of Service: 09/14/23 Assessment & Plan Assessment and plan (1) ESRD needing dialysis: Status: Acute Plan Has ESRD from diabetic nephropathy; Due HD this AM Had been getting home hemodialysis in the past and in center recently Had issues with the access and new PermCath was placed 4 days ago by IR Was hyperkalemic and was dialyzed Procrit 63747 units subcutaneous once a week Renvela 1600 mg 3 times a day with meals Low potassium, low phosphorus diet with a fluid restriction Shall closely follow-up during her current hospital stay. Progress Note: Quality Stroke Does the patient have a stroke diagnosis?: No
[2023-09-14 13:50] VITALS: BP 133/62; PULSE 74; RESP 20; TEMP 36.9; O2SAT 98
--- NOTE | 2023-09-14 13:52 | MHC.CM.PN ---
EMR reviewed and per MD rounds, pt is not medically cleared for D/C due to management of ESRD s/p missed dialysis.
--- NOTE | 2023-09-14 15:07 | HO.PM.IMPN ---
Subjective Subjective Date of Service: 09/14/23 Interval History: No acute issues overnight. Remains tolerant of dialysis Review of Systems Denies chest pain Denies shortness of breath Denies nausea vomiting diarrhea Denies fever chills Physical Exam Vital Signs: Vital Signs: Last Vital Signs Temp 98.5 F 09/14/23 13:50 Pulse 74 09/14/23 13:50 Resp 20 09/14/23 13:50 BP 133/62 09/14/23 13:50 Pulse Ox 98 09/14/23 13:50 O2 Del Method Room Air 09/14/23 13:50 BMI result Body Mass Index 47.0 Const: Other: Awake alert no acute distress Resp: Other: Clear to auscultation bilaterally no rales rhonchi or wheezes Cardio: Other: No S4; positive S1-S2; no S3 murmurs rubs or gallops GI: Other: Soft tender right lower quadrant with ecchymosis Extrem: Other: No edema bilaterally Objective Data Active Medications Acetaminophen (Acetaminophen 325 Mg Tablet) 650 mg PO Q6H PRN PRN Reason: Pain, Mild (Pain Scale 1-3) Albuterol Sulfate (Albuterol Sulfate 90 Mcg 8 Gm Inhaler) 2 puff INHALE Q4H PRN PRN Reason: for wheezing Amlodipine Besylate (Amlodipine Besylate 10 Mg Tablet) 10 mg PO DAILY [facility]; Protocol Last Admin: 09/14/23 09:09 Dose: Not Given Documented By: LEXIS Non-Admin Reason: Physician Held Med Aspirin (Aspirin Enteric Coated 81 Mg Tablet.Dr) 81 mg PO DAILY [facility] Last Admin: 09/14/23 08:33 Dose: 81 mg Documented By: AILIN Atorvastatin Calcium (Atorvastatin Calcium 40 Mg Tablet) 40 mg PO BEDTIME [facility] Last Admin: 09/13/23 20:16 Dose: 40 mg Documented By: EPIFANIO Calcitriol (Calcitriol 0.25 Mcg Capsule) 0.25 mcg PO [facility] Last Admin: 09/13/23 20:20 Dose: 0.25 mcg Documented By: EPIFANIO Cinacalcet (Cinacalcet Hcl 30 Mg Tablet) 30 mg PO [facility] Last Admin: 09/13/23 20:20 Dose: 30 mg Documented By: EPIFANIO Clonazepam (Clonazepam 0.5 Mg Tablet) 0.5 mg PO DAILY [facility] Last Admin: 09/14/23 08:33 Dose: 0.5 mg Documented By: AILIN Clonazepam (Clonazepam 1 Mg Tablet) 1 mg PO BEDTIME [facility] Last Admin: 09/13/23 20:16 Dose: 1 mg Documented By: EPIFANIO Duloxetine HCl (Duloxetine Hcl 30 Mg Capsule.Dr) 30 mg PO DAILY [facility] Last Admin: 09/14/23 08:33 Dose: 30 mg Documented By: AILIN Glucose (Glucose Gel 15 Gm Gel..Gram.) 15 gm PO Q15M PRN; Protocol PRN Reason: per Hypoglycemia Standing Ord. Heparin Sodium (Porcine) (Heparin Sodium,Porcine 5,000 Unit/Ml Vial) 5,000 unit INTRACATH MOWEFR@1645 [facility] Dextrose (D10) 250 mls @ 750 mls/hr IV Q15M PRN PRN Reason: per Hypoglycemia Standing Ord. Insulin Glargine (Insulin Glargine,Hum.Rec.Anlog 100 Unit/Ml 10 Ml Vial) 20 unit SUBCUT BEDTIME [facility] Last Admin: 09/13/23 20:17 Dose: 20 unit Documented By: EPIFANIO Insulin Human Lispro (Insulin Lispro 100 Unit/Ml 3 Ml Vial) 0 unit SUBCUT QIDACHS [facility]; Protocol Last Admin: 09/14/23 12:03 Dose: Not Given Documented By: LEXIS Non-Admin Reason: No Insulin Coverage Losartan Potassium (Losartan Potassium 50 Mg Tablet) 100 mg PO DAILY [facility]; Protocol Last Admin: 09/14/23 09:09 Dose: Not Given Documented By: LEXIS Non-Admin Reason: Physician Held Med Metoprolol Succinate (Metoprolol Succinate Er 100 Mg Tab.Er.24h) 100 mg PO DAILY [facility]; Protocol Last Admin: 09/14/23 09:10 Dose: Not Given Documented By: LEXIS Non-Admin Reason: Physician Held Med Montelukast Sodium (Montelukast Sodium 10 Mg Tablet) 10 mg PO BEDTIME [facility] Last Admin: 09/13/23 20:16 Dose: 10 mg Documented By: EPIFANIO Morphine Sulfate (Morphine Sulfate 4 Mg/Ml Cartridge) 4 mg IVPUSH Q4H PRN; Protocol PRN Reason: Pain, Severe (Pain Scale 7-10) Last Admin: 09/13/23 11:13 Dose: 4 mg Documented By: BERTA Omeprazole (Omeprazole 20 Mg Capsule.Dr) 20 mg PO DAILY@0630 [facility] Last Admin: 09/14/23 06:26 Dose: 20 mg Documented By: EPIFANIO Ondansetron HCl (Ondansetron Hcl 4 Mg/2 Ml Vial) 4 mg IVPUSH Q8H PRN PRN Reason: Nausea and Vomiting Oxycodone HCl (Oxycodone Hcl Immed Release 5 Mg Tablet) 10 mg PO Q4H PRN PRN Reason: Pain, Moderate(Pain Scale 4-6) Last Admin: 09/14/23 10:39 Dose: 10 mg Documented By: LEXIS Polyethylene Glycol (Polyethylene Glycol 3350 17 Gm Powd.Pack) 17 gm PO DAILY [facility] Last Admin: 09/14/23 09:10 Dose: Not Given Documented By: LEXIS Non-Admin Reason: Patient Refused Senna (Sennosides 8.6 Mg Tablet) 17.2 mg PO BEDTIME PRN PRN Reason: Constipation Sevelamer Carbonate (Sevelamer Carbonate Tablet 800 Mg Tablet) 800 mg PO TIDWM PRN PRN Reason: WITH MEALS Last Admin: 09/14/23 08:36 Dose: 800 mg Documented By: AILIN Sodium Bicarbonate (Sodium Bicarbonate 650 Mg Tablet) 650 mg PO TID [facility] Last Admin: 09/14/23 08:33 Dose: 650 mg Documented By: AILIN Sodium Chloride (0.9 % Sodium Chloride Flush 3 Ml Syringe) [facility] Admin: 09/14/23 09:11 Dose: 3 ml Documented By: LEXIS Trazodone HCl (Trazodone Hcl 100 Mg Tablet) 200 mg PO BEDTIME [facility] Last Admin: 09/13/23 20:16 Dose: 200 mg Documented By: EPIFANIO Labs 09/11/23 07:02 09/12/23 06:39 Labs: Laboratory Results - last 24 hr 09/13/23 09/13/23 09/14/23 16:24 19:11 07:30 POC Glucose 111 151 H 92 09/14/23 11:41 POC Glucose 112 Assessment and Plan (1) ESRD needing dialysis: Status: Acute (2) Uncontrolled diabetes mellitus with hyperglycemia, with long-term current use of insulin: Status: Acute Plan 43-year-old female with complicated past medical history including uncontrolled type 1 diabetes with ESRD on dialysis, diabetic polyneuropathy, hypertension, hyperlipidemia, mood disorder, coronary artery disease with history of NSTEMI (has appt with PVC regarding possible CABG on sunday), history of cauda equina syndrome with chronic bilateral lower extremity weakness, diabetic gastroparesis, moderate persistent asthma, who is morbidly obese with BMI greater than 47 admitted for ESRD on dialysis with hyperkalemia 1.Acute hyperkalemia- due to acute on chronic renal failure -resolved with hemodialysis -follow renals/divalents -HD as per renal... Need to arrange outpatient renal chair prior to discharge 2.Acute on chronic renal failure- non-oliguric -dialysis as per renal -Procrit 68118 units x 1 given -renal supplements as ordered along with Bicarb -follow renals/divalents 3.Uncontrolled type 1 diabetes with hyperglycemia -acceptable control on current therapies.... Continue outpatient therapies -lispro correctionals scale -adjust as indicated 3.Moderate persistent asthma -stable and well compensated at this time 4.Hypertension -hold losartan in setting of acute on chronic renal failure. Continue metoprolol -add back therapies when appropriate 5.CAD -staple well compensated -continue ASA, beta-ángel, statin DVT prophylaxis- avoid heparin due to large hematoma LUE, SCPs, early ambulation Full code Patient requires ongoing hospitalization to facilitate dialysis secondary to missed episodes and specialty consultation as well as finalizing outpatient chair for dialysis. Extremely high risk for outpatient failure if dialysis chair isn't arranged prior to discharge Quality Stroke Does the patient have a stroke diagnosis?: No VTE Prior VTE?: No VTE Risk Level:: Medical - moderate - high VTE Device Contraindication: Treatment Not Indicated VTE Drug Contraindication: N/A - Med Ordered
[2023-09-14 15:57] VITALS: BP 134/60; PULSE 81; RESP 18; TEMP 37.1; O2SAT 96
[2023-09-14 16:09] LABS: Glucose, Whole Blood 121 mg/dL (60-115)
[2023-09-14 19:52] VITALS: BP 104/53; PULSE 76; RESP 20; TEMP 37.8; O2SAT 94
[2023-09-14 20:17] LABS: Glucose, Whole Blood 173 mg/dL (60-115)
[2023-09-14] MEDS: clonazePAM 1 MG TABLET PO (20:34)
[2023-09-14] MEDS: Atorvastatin Calcium 40 MG TABLET PO (20:35)
[2023-09-14] MEDS: traZODone HCL 100 MG TABLET 200 MG PO (20:35)
[2023-09-14] MEDS: Montelukast Sodium 10 MG TABLET PO (20:35)
[2023-09-14] MEDS: Insulin Glargine,Hum.rec.anlog 100 UNIT/ML 10 ML VIAL 20 UNIT SUBCUT (20:37)
[2023-09-14] MEDS: Insulin Lispro 100 UNIT/ML 3 ML VIAL SUBCUT (20:37)
[2023-09-14] MEDS: Acetaminophen 325 MG TABLET 650 MG PO (20:41)
[2023-09-14 23:34] VITALS: BP 104/51; PULSE 67; RESP 18; TEMP 36.3; O2SAT 99
[2023-09-15] MEDS: oxyCODONE HCl Immed Release 5 MG TABLET 10 MG PO ×6 (02:15→22:39)
[2023-09-15 03:42] VITALS: BP 103/52; PULSE 59; RESP 18; TEMP 36.6; O2SAT 96
[2023-09-15] MEDS: Omeprazole 20 MG CAPSULE.DR PO (06:14)
[2023-09-15 07:08] LABS: Glucose, Whole Blood 180 mg/dL (60-115)
[2023-09-15 07:09] VITALS: BP 118/58; PULSE 66; RESP 18; TEMP 36.7; O2SAT 97
[2023-09-15] MEDS: Metoprolol Succinate ER 100 MG TAB.ER.24H PO (08:39)
[2023-09-15] MEDS: amLODIPine Besylate 10 MG TABLET PO (08:40)
[2023-09-15] MEDS: clonazePAM 0.5 MG TABLET PO (08:40)
[2023-09-15] MEDS: Aspirin Enteric Coated 81 MG TABLET.DR PO (08:40)
[2023-09-15] MEDS: Sodium Bicarbonate 650 MG TABLET PO ×3 (08:40→20:18)
[2023-09-15] MEDS: Losartan Potassium 50 MG TABLET 100 MG PO (08:40)
[2023-09-15] MEDS: Insulin Lispro 100 UNIT/ML 3 ML VIAL SUBCUT ×2 (08:40→11:53)
[2023-09-15] MEDS: DULoxetine HCl 30 MG CAPSULE.DR PO (08:43)
[2023-09-15] MEDS: polyethylene glycoL 3350 17 GM POWD.PACK PO (08:43)
[2023-09-15] MEDS: 0.9 % Sodium Chloride Flush 3 ML SYRINGE IVFLUSH ×2 (08:49→21:00)
[2023-09-15 10:57] LABS: Glucose, Whole Blood 203 mg/dL (60-115)
[2023-09-15 11:02] VITALS: BP 98/52; PULSE 62; RESP 18; TEMP 36.8; O2SAT 94
[2023-09-15] MEDS: Morphine Sulfate 4 MG/ML CARTRIDGE IVPUSH (13:06)
--- NOTE | 2023-09-15 13:17 | HO.PM.IMPN ---
Subjective Subjective Date of Service: 09/15/23 Interval History: no complaints underwent HD yesterday; awaiting HD placement Review of Systems Review of Systems: Yes all other systems are reviewed and are negative Physical Exam Vital Signs: Vital Signs: Last Vital Signs Temp 98.3 F 09/15/23 11:02 Pulse 62 09/15/23 11:02 Resp 18 09/15/23 11:02 BP 98/52 L 09/15/23 11:02 Pulse Ox 94 09/15/23 11:02 O2 Del Method Room Air 09/15/23 11:02 BMI result Body Mass Index 47.0 Gen: in no acute distress HEENT: sclera anicteric, moist mucus membranes Neck: supple, R subclavian tunneled HD catheter Lungs: clear to auscultation bilaterally Heart: regular rate and rhythm, no murmurs Abd: soft, non-tender, non-distended, obese Ext: no edema Skin: warm/well-perfused Neuro: alert and oriented x3, moving all extremities Psych: appropriate affect Objective Data Active Medications Acetaminophen (Acetaminophen 325 Mg Tablet) 650 mg PO Q6H PRN PRN Reason: Pain, Mild (Pain Scale 1-3) Last Admin: 09/14/23 20:41 Dose: 650 mg Documented By: EPIFANIO Albuterol Sulfate (Albuterol Sulfate 90 Mcg 8 Gm Inhaler) 2 puff INHALE Q4H PRN PRN Reason: for wheezing Amlodipine Besylate (Amlodipine Besylate 10 Mg Tablet) 10 mg PO DAILY [facility]; Protocol Last Admin: 09/15/23 08:40 Dose: 10 mg Documented By: CARLOS Aspirin (Aspirin Enteric Coated 81 Mg Tablet.) 81 mg PO DAILY [facility] Last Admin: 09/15/23 08:40 Dose: 81 mg Documented By: CARLOS Atorvastatin Calcium (Atorvastatin Calcium 40 Mg Tablet) 40 mg PO BEDTIME [facility] Last Admin: 09/14/23 20:35 Dose: 40 mg Documented By: EPIFANIO Calcitriol (Calcitriol 0.25 Mcg Capsule) 0.25 mcg PO [facility] Last Admin: 09/13/23 20:20 Dose: 0.25 mcg Documented By: EPIFANIO Cinacalcet (Cinacalcet Hcl 30 Mg Tablet) 30 mg PO [facility] Last Admin: 09/13/23 20:20 Dose: 30 mg Documented By: EPIFANIO Clonazepam (Clonazepam 0.5 Mg Tablet) 0.5 mg PO DAILY [facility] Last Admin: 09/15/23 08:40 Dose: 0.5 mg Documented By: CARLOS Clonazepam (Clonazepam 1 Mg Tablet) 1 mg PO BEDTIME [facility] Last Admin: 09/14/23 20:34 Dose: 1 mg Documented By: EPIFANIO Duloxetine HCl (Duloxetine Hcl 30 Mg Capsule.Dr) 30 mg PO DAILY [facility] Last Admin: 09/15/23 08:43 Dose: 30 mg Documented By: CARLOS Glucose (Glucose Gel 15 Gm Gel..Gram.) 15 gm PO Q15M PRN; Protocol PRN Reason: per Hypoglycemia Standing Ord. Heparin Sodium (Porcine) (Heparin Sodium,Porcine 5,000 Unit/Ml Vial) 5,000 unit INTRACATH MOWEFR@1645 [facility] Last Admin: 09/14/23 16:22 Dose: Not Given Documented By: LEXIS Non-Admin Reason: Not given by dialysis Dextrose (D10) 250 mls @ 750 mls/hr IV Q15M PRN PRN Reason: per Hypoglycemia Standing Ord. Insulin Glargine (Insulin Glargine,Hum.Rec.Anlog 100 Unit/Ml 10 Ml Vial) 20 unit SUBCUT BEDTIME [facility] Last Admin: 09/14/23 20:37 Dose: 20 unit Documented By: EPIFANIO Insulin Human Lispro (Insulin Lispro 100 Unit/Ml 3 Ml Vial) 0 unit SUBCUT QIDACHS [facility]; Protocol Last Admin: 09/15/23 11:53 Dose: 4 unit Documented By: CARLOS Losartan Potassium (Losartan Potassium 50 Mg Tablet) 100 mg PO DAILY [facility]; Protocol Last Admin: 09/15/23 08:40 Dose: 100 mg Documented By: CARLOS Metoprolol Succinate (Metoprolol Succinate Er 100 Mg Tab.Er.24h) 100 mg PO DAILY [facility]; Protocol Last Admin: 09/15/23 08:39 Dose: 100 mg Documented By: CARLOS Montelukast Sodium (Montelukast Sodium 10 Mg Tablet) 10 mg PO BEDTIME [facility] Last Admin: 09/14/23 20:35 Dose: 10 mg Documented By: EPIFANIO Morphine Sulfate (Morphine Sulfate 4 Mg/Ml Cartridge) 4 mg IVPUSH Q4H PRN; Protocol PRN Reason: Pain, Severe (Pain Scale 7-10) Last Admin: 09/15/23 13:06 Dose: 4 mg Documented By: CARLOS Omeprazole (Omeprazole 20 Mg Capsule.Dr) 20 mg PO DAILY@0630 [facility] Last Admin: 09/15/23 06:14 Dose: 20 mg Documented By: EPIFANIO Ondansetron HCl (Ondansetron Hcl 4 Mg/2 Ml Vial) 4 mg IVPUSH Q8H PRN PRN Reason: Nausea and Vomiting Oxycodone HCl (Oxycodone Hcl Immed Release 5 Mg Tablet) 10 mg PO Q4H PRN PRN Reason: Pain, Moderate(Pain Scale 4-6) Last Admin: 09/15/23 10:20 Dose: 10 mg Documented By: CARLOS Polyethylene Glycol (Polyethylene Glycol 3350 17 Gm Powd.Pack) 17 gm PO DAILY [facility] Last Admin: 09/15/23 08:43 Dose: 17 gm Documented By: CARLOS Senna (Sennosides 8.6 Mg Tablet) 17.2 mg PO BEDTIME PRN PRN Reason: Constipation Sevelamer Carbonate (Sevelamer Carbonate Tablet 800 Mg Tablet) 800 mg PO TIDWM PRN PRN Reason: WITH MEALS Last Admin: 09/14/23 08:36 Dose: 800 mg Documented By: AILIN Sodium Bicarbonate (Sodium Bicarbonate 650 Mg Tablet) 650 mg PO TID [facility] Last Admin: 09/15/23 08:40 Dose: 650 mg Documented By: CARLOS Sodium Chloride (0.9 % Sodium Chloride Flush 3 Ml Syringe) [facility] Last Admin: 09/15/23 08:49 Dose: 3 ml Documented By: CARLOS Trazodone HCl (Trazodone Hcl 100 Mg Tablet) 200 mg PO BEDTIME [facility] Last Admin: 09/14/23 20:35 Dose: 200 mg Documented By: EPIFANIO Labs 09/11/23 07:02 09/12/23 06:39 Labs: Laboratory Results - last 24 hr 09/14/23 09/14/23 09/15/23 16:02 20:13 07:02 POC Glucose 121 H 173 H 180 H 04/06/24 10:50 POC Glucose 203 H Assessment and Plan (1) ESRD needing dialysis: Status: Acute (2) Uncontrolled diabetes mellitus with hyperglycemia, with long-term current use of insulin: Status: Acute Plan d6 43yo F with DM1 + polyneuropathy, ESRD on HD, HTN, HLD, mood disorder, CAD with hx NSTEMI, hx cauda equina syndrome with chronic BLE weakness, DM2 gastroparesis, moderate persistent asthma, morbidly obese admitted after inability to access fistula found to have hyperK Permacath placed acute hyperK due to ESRD - resolved with HD - continue HD MWF, awaiting outpt HD placement - continue sevelamer - continue bicarbonate - continue cinecalcet anemia of ESRD - epo given CAD - ASA, statin, metoprolol succinate adrenal incidentaloma - outpt adrenal CT HTN - amlodipine, metoprolol succinate, losartan DM1 with hyperglycemia - basal-bolus insulin moderate persistent asthma not in acute exac - continue montelukast, prn albuterol neuropathy - duloxetine VTE ppx - SCDs In my clinical judgment, the patient requires continued inpatient hospitalization for the following reasons: HD placement Total time managing care of this patient today: 35 minutes. Quality Stroke Does the patient have a stroke diagnosis?: No VTE Prior VTE?: No VTE Risk Level:: Medical - moderate - high VTE Device Contraindication: Treatment Not Indicated VTE Drug Contraindication: N/A - Med Ordered
[2023-09-15 15:56] VITALS: BP 110/53; PULSE 65; RESP 20; TEMP 36.4; O2SAT 96
[2023-09-15 16:24] LABS: Glucose, Whole Blood 110 mg/dL (60-115)
[2023-09-15] MEDS: Lactulose 20 GM/30 ML SOLUTION PO (18:39)
[2023-09-15 20:00] VITALS: BP 130/60; PULSE 65; RESP 16; TEMP 36.2; O2SAT 94
[2023-09-15] MEDS: Atorvastatin Calcium 40 MG TABLET PO (20:17)
[2023-09-15] MEDS: calcitrioL 0.25 MCG CAPSULE PO (20:17)
[2023-09-15] MEDS: clonazePAM 1 MG TABLET PO (20:17)
[2023-09-15] MEDS: Sennosides/Docusate Sodium TABLET 2 TAB PO (20:17)
[2023-09-15] MEDS: Cinacalcet HCl 30 MG TABLET PO (20:17)
[2023-09-15] MEDS: Montelukast Sodium 10 MG TABLET PO (20:17)
[2023-09-15] MEDS: traZODone HCL 100 MG TABLET 200 MG PO (20:18)
[2023-09-15] MEDS: Insulin Glargine,Hum.rec.anlog 100 UNIT/ML 10 ML VIAL 20 UNIT SUBCUT (20:59)
[2023-09-15 21:47] LABS: Glucose, Whole Blood 158 mg/dL (60-115)
[2023-09-15 23:52] VITALS: BP 109/54; PULSE 62; RESP 18; TEMP 36; O2SAT 97
[2023-09-16 03:54] VITALS: BP 142/64; PULSE 65; RESP 16; TEMP 36; O2SAT 97
[2023-09-16] MEDS: Omeprazole 20 MG CAPSULE.DR PO (04:08)
[2023-09-16] MEDS: oxyCODONE HCl Immed Release 5 MG TABLET 10 MG PO ×5 (04:08→22:20)
[2023-09-16 07:22] VITALS: BP 115/54; PULSE 64; RESP 18; TEMP 36.2; O2SAT 96
[2023-09-16 08:09] LABS: Glucose, Whole Blood 120 mg/dL (60-115)
[2023-09-16] MEDS: Sennosides/Docusate Sodium TABLET 2 TAB PO ×2 (08:19→21:04)
[2023-09-16] MEDS: Sodium Bicarbonate 650 MG TABLET PO ×3 (08:19→21:04)
[2023-09-16] MEDS: Aspirin Enteric Coated 81 MG TABLET.DR PO (08:19)
[2023-09-16] MEDS: clonazePAM 0.5 MG TABLET PO (08:19)
[2023-09-16] MEDS: Lactulose 20 GM/30 ML SOLUTION PO (08:19)
[2023-09-16] MEDS: Losartan Potassium 50 MG TABLET 100 MG PO (08:19)
[2023-09-16] MEDS: amLODIPine Besylate 10 MG TABLET PO (08:19)
[2023-09-16] MEDS: DULoxetine HCl 30 MG CAPSULE.DR PO (08:20)
[2023-09-16] MEDS: Metoprolol Succinate ER 100 MG TAB.ER.24H PO ×2 (08:20)
[2023-09-16] MEDS: 0.9 % Sodium Chloride Flush 3 ML SYRINGE IVFLUSH ×3 (08:21→21:04)
--- NOTE | 2023-09-16 08:56 | P.PNIM_ITS ---
Subjective Subjective Date of Service: 09/16/23 Interval History: some abd pain related to constipation Review of Systems Review of Systems: Yes all other systems are reviewed and are negative Physical Exam 2 Vital Signs: Vital Signs: Last Vital Signs Temp 97.1 F 09/16/23 07:22 Pulse 64 09/16/23 07:22 Resp 18 09/16/23 07:22 BP 115/54 L 09/16/23 07:22 Pulse Ox 96 09/16/23 07:22 O2 Del Method Room Air 09/16/23 07:22 BMI result Body Mass Index 47.0 Gen: in no acute distress HEENT: sclera anicteric, moist mucus membranes Neck: supple, R subclavian tunneled HD catheter Lungs: clear to auscultation bilaterally Heart: regular rate and rhythm, no murmurs Abd: soft, non-tender, non-distended, obese Ext: no edema, LUE fistula clotted Skin: warm/well-perfused Neuro: alert and oriented x3, moving all extremities Psych: appropriate affect Objective Data Active Medications Acetaminophen (Acetaminophen 325 Mg Tablet) 650 mg PO Q6H PRN PRN Reason: Pain, Mild (Pain Scale 1-3) Last Admin: 09/14/23 20:41 Dose: 650 mg Documented By: EPIFANIO Al Hydroxide/Mg Hydroxide (Magnesium Hydrox/Alum Hydrox 30 Ml Oral.Susp) 30 ml PO Q6H PRN PRN Reason: Heartburn Albuterol Sulfate (Albuterol Sulfate 90 Mcg 8 Gm Inhaler) 2 puff INHALE Q4H PRN PRN Reason: for wheezing Amlodipine Besylate (Amlodipine Besylate 10 Mg Tablet) 10 mg PO DAILY [facility]; Protocol Last Admin: 09/16/23 08:19 Dose: 10 mg Documented By: BERTA Aspirin (Aspirin Enteric Coated 81 Mg Tablet.Dr) 81 mg PO DAILY [facility] Last Admin: 09/16/23 08:19 Dose: 81 mg Documented By: BERTA Atorvastatin Calcium (Atorvastatin Calcium 40 Mg Tablet) 40 mg PO BEDTIME [facility] Last Admin: 09/15/23 20:17 Dose: 40 mg Documented By: EPIFANIO Calcitriol (Calcitriol 0.25 Mcg Capsule) 0.25 mcg PO TUTHSA [facility] Last Admin: 09/15/23 20:17 Dose: 0.25 mcg Documented By: EPIFANIO Cinacalcet (Cinacalcet Hcl 30 Mg Tablet) 30 mg PO TUTHSA [facility] Last Admin: 09/15/23 20:17 Dose: 30 mg Documented By: EPIFANIO Clonazepam (Clonazepam 0.5 Mg Tablet) 0.5 mg PO DAILY [facility] Last Admin: 09/16/23 08:19 Dose: 0.5 mg Documented By: BERTA Duloxetine HCl (Duloxetine Hcl 30 Mg Capsule.Dr) 30 mg PO DAILY [facility] Last Admin: 09/16/23 08:20 Dose: 30 mg Documented By: BERTA Glucose (Glucose Gel 15 Gm Gel..Gram.) 15 gm PO Q15M PRN; Protocol PRN Reason: per Hypoglycemia Standing Ord. Heparin Sodium (Porcine) (Heparin Sodium,Porcine 5,000 Unit/Ml Vial) 5,000 unit INTRACATH MOWEFR@1645 [facility] Last Admin: 09/14/23 16:22 Dose: Not Given Documented By: LEXIS Non-Admin Reason: Not given by dialysis Dextrose (D10) 250 mls @ 750 mls/hr IV Q15M PRN PRN Reason: per Hypoglycemia Standing Ord. Insulin Glargine (Insulin Glargine,Hum.Rec.Anlog 100 Unit/Ml 10 Ml Vial) 20 unit SUBCUT BEDTIME [facility] Last Admin: 09/15/23 20:59 Dose: 20 unit Documented By: EPIFANIO Insulin Human Lispro (Insulin Lispro 100 Unit/Ml 3 Ml Vial) 0 unit SUBCUT QIDACHS [facility]; Protocol Last Admin: 09/16/23 08:11 Dose: Not Given Documented By: BERTA Non-Admin Reason: No Insulin Coverage Lactulose (Lactulose 20 Gm/30 Ml Solution) 20 gm PO DAILY [facility] Last Admin: 09/16/23 08:19 Dose: 20 gm Documented By: BERTA Losartan Potassium (Losartan Potassium 50 Mg Tablet) 100 mg PO DAILY [facility]; Protocol Last Admin: 09/16/23 08:19 Dose: 100 mg Documented By: BERTA Metoprolol Succinate (Metoprolol Succinate Er 100 Mg Tab.Er.24h) 100 mg PO DAILY [facility]; Protocol Last Admin: 09/16/23 08:20 Dose: 100 mg Documented By: BERTA Montelukast Sodium (Montelukast Sodium 10 Mg Tablet) 10 mg PO BEDTIME [facility] Last Admin: 09/15/23 20:17 Dose: 10 mg Documented By: EPIFANIO Morphine Sulfate (Morphine Sulfate 4 Mg/Ml Cartridge) 4 mg IVPUSH Q4H PRN; Protocol PRN Reason: Pain, Severe (Pain Scale 7-10) Last Admin: 09/15/23 13:06 Dose: 4 mg Documented By: CARLOS Omeprazole (Omeprazole 20 Mg Capsule.Dr) 20 mg PO DAILY@0630 [facility] Last Admin: 09/16/23 04:08 Dose: 20 mg Documented By: EPIFANIO Comments: per pt request not to be woken at 06:30 Ondansetron HCl (Ondansetron Hcl 4 Mg/2 Ml Vial) 4 mg IVPUSH Q8H PRN PRN Reason: Nausea and Vomiting Oxycodone HCl (Oxycodone Hcl Immed Release 5 Mg Tablet) 10 mg PO Q4H PRN PRN Reason: Pain, Moderate(Pain Scale 4-6) Last Admin: 09/16/23 08:24 Dose: 10 mg Documented By: BERTA Polyethylene Glycol (Polyethylene Glycol 3350 17 Gm Powd.Pack) 17 gm PO DAILY [facility] Last Admin: 09/15/23 08:43 Dose: 17 gm Documented By: CARLOS Senna/Docusate Sodium (Sennosides/Docusate Sodium Tablet) 2 tab PO BID [facility] Last Admin: 09/16/23 08:19 Dose: 2 tab Documented By: BERTA Sevelamer Carbonate (Sevelamer Carbonate Tablet 800 Mg Tablet) 800 mg PO TIDWM PRN PRN Reason: WITH MEALS Last Admin: 09/14/23 08:36 Dose: 800 mg Documented By: KELVIN-NOMCLARITA Sodium Bicarbonate (Sodium Bicarbonate 650 Mg Tablet) 650 mg PO TID [facility] Last Admin: 09/16/23 08:19 Dose: 650 mg Documented By: BERTA Sodium Chloride (0.9 % Sodium Chloride Flush 3 Ml Syringe) 3 ml IVFLUSH QSHIFT [facility] Last Admin: 09/16/23 08:21 Dose: 3 ml Documented By: BERTA Trazodone HCl (Trazodone Hcl 100 Mg Tablet) 200 mg PO BEDTIME [facility] Last Admin: 09/15/23 20:18 Dose: 200 mg Documented By: EPIFANIO Labs 09/11/23 07:02 09/12/23 06:39 Labs: Laboratory Results - last 24 hr 09/15/23 09/15/23 09/15/23 10:50 15:59 20:51 POC Glucose 203 H 110 158 H 09/16/23 07:34 POC Glucose 120 H Impressions Abdomen X-Ray 09/15/23 14:26 IMPRESSION: 1. Nonobstructive bowel gas pattern. 2. Large amount of stool in the colon. Microbiology Microbiology Results: Microbiology 09/10/23 15:41 Blood Culture - Final Blood - Venous No growth after 5 days. 09/10/23 15:41 Blood Culture - Final Blood - Venous No growth after 5 days. Assessment and Plan (1) ESRD needing dialysis: Status: Acute (2) Uncontrolled diabetes mellitus with hyperglycemia, with long-term current use of insulin: Status: Acute Plan d7 43yo F with DM1 + polyneuropathy, ESRD on HD, HTN, HLD, mood disorder, CAD with hx NSTEMI, hx cauda equina syndrome with chronic BLE weakness, DM2 gastroparesis, moderate persistent asthma, morbidly obese admitted after inability to access fistula found to have hyperK Permacath placed acute hyperK due to ESRD - resolved with HD - continue HD MWF, awaiting outpt HD placement - continue sevelamer - continue bicarbonate - continue cinecalcet anemia of ESRD - epo given CAD - ASA, statin, metoprolol succinate adrenal incidentaloma - outpt adrenal CT HTN - amlodipine, metoprolol succinate, losartan DM1 with hyperglycemia - basal-bolus insulin moderate persistent asthma not in acute exac - continue montelukast, prn albuterol neuropathy - duloxetine VTE ppx - SCDs In my clinical judgment, the patient requires continued inpatient hospitalization for the following reasons: HD placement Total time managing care of this patient today: 35 minutes. Quality Stroke Does the patient have a stroke diagnosis?: No VTE Prior VTE?: No VTE Risk Level:: Medical - moderate - high VTE Device Contraindication: Treatment Not Indicated VTE Drug Contraindication: N/A - Med Ordered
[2023-09-16 11:38] VITALS: BP 120/57; PULSE 62; RESP 18; TEMP 36.8; O2SAT 97
[2023-09-16 11:39] LABS: Glucose, Whole Blood 112 mg/dL (60-115)
[2023-09-16] MEDS: Magnesium Hydrox/Alum Hydrox 30 ML ORAL.SUSP PO (15:02)
[2023-09-16 15:42] VITALS: BP 112/54; PULSE 62; RESP 18; TEMP 36.7; O2SAT 96
[2023-09-16 16:24] LABS: Glucose, Whole Blood 128 mg/dL (60-115)
[2023-09-16 19:11] VITALS: BP 129/62; PULSE 61; RESP 16; TEMP 36.4; O2SAT 97
[2023-09-16 20:08] LABS: Glucose, Whole Blood 115 mg/dL (60-115)
[2023-09-16] MEDS: Acetaminophen 325 MG TABLET 650 MG PO (21:03)
[2023-09-16] MEDS: traZODone HCL 100 MG TABLET 200 MG PO (21:04)
[2023-09-16] MEDS: Montelukast Sodium 10 MG TABLET PO (21:04)
[2023-09-16] MEDS: Insulin Glargine,Hum.rec.anlog 100 UNIT/ML 10 ML VIAL 20 UNIT SUBCUT (21:04)
[2023-09-16] MEDS: Atorvastatin Calcium 40 MG TABLET PO (21:04)
[2023-09-16 23:24] VITALS: BP 111/54; PULSE 62; RESP 18; TEMP 36.8; O2SAT 99
[2023-09-17] VITALS (7 sets, daily range): BP systolic 97–134; BP diastolic 46–61; PULSE 55–96; RESP 16–20; TEMP 36.3–37; O2SAT 96–98
[2023-09-17] MEDS: Omeprazole 20 MG CAPSULE.DR PO (05:44)
[2023-09-17] MEDS: oxyCODONE HCl Immed Release 5 MG TABLET 10 MG PO ×4 (05:44→22:46)
[2023-09-17] MEDS: Acetaminophen 325 MG TABLET 650 MG PO ×2 (05:44→22:46)
[2023-09-17 07:24] LABS: Glucose, Whole Blood 128 mg/dL (60-115)
[2023-09-17] MEDS: Losartan Potassium 50 MG TABLET 100 MG PO (08:39)
[2023-09-17] MEDS: Lactulose 20 GM/30 ML SOLUTION PO ×2 (08:39→16:27)
[2023-09-17] MEDS: Aspirin Enteric Coated 81 MG TABLET.DR PO (08:39)
[2023-09-17] MEDS: Sennosides/Docusate Sodium TABLET 2 TAB PO ×2 (08:39→22:46)
[2023-09-17] MEDS: Sodium Bicarbonate 650 MG TABLET PO ×3 (08:39→22:46)
[2023-09-17] MEDS: DULoxetine HCl 30 MG CAPSULE.DR PO (08:39)
[2023-09-17] MEDS: 0.9 % Sodium Chloride Flush 3 ML SYRINGE IVFLUSH ×3 (08:40→22:48)
[2023-09-17] MEDS: amLODIPine Besylate 10 MG TABLET PO (08:54)
[2023-09-17] MEDS: Metoprolol Succinate ER 100 MG TAB.ER.24H PO (08:54)
[2023-09-17 09:03] LABS: Anion Gap 18 (12-20); Blood Urea Nitrogen 33 mg/dL (9-16); Calcium 7.8 mg/dL (8.4-10.2); Carbon Dioxide 17 mmol/L (22-29); Chloride 104 mmol/L (96-108); Creatinine Clr Calc Pharmacy 10.6; Estimated Glomerular Filt Rate 4; Glucose Random 130 mg/dL (60-115); Potassium 4.7 mmol/L (3.3-5.1); Sodium 134 mmol/L (135-145)
--- NOTE | 2023-09-17 10:29 | MHC.CM.PN ---
Pt has been medically cleared, she is awaiting outpatient HD spot, she will be DC when this is set up, and she will resume her home care services. CM will follow and assist as needed with DC plan.
--- NOTE | 2023-09-17 10:36 | HO.PM.IMPN ---
Subjective Subjective Date of Service: 09/17/23 Interval History: c/o constipation HD today Review of Systems Review of Systems: Yes all other systems are reviewed and are negative Physical Exam Vital Signs: Vital Signs: Last Vital Signs Temp 98.0 F 09/17/23 07:16 Pulse 55 09/17/23 07:16 Resp 16 09/17/23 07:16 BP 114/56 L 09/17/23 08:51 Pulse Ox 98 09/17/23 07:16 O2 Del Method Room Air 09/17/23 07:16 BMI result Body Mass Index 47.0 Gen: in no acute distress HEENT: sclera anicteric, moist mucus membranes Neck: supple, R subclavian tunneled HD catheter Lungs: clear to auscultation bilaterally Heart: regular rate and rhythm, no murmurs Abd: soft, non-tender, non-distended, obese Ext: no edema, LUE fistula clotted Skin: warm/well-perfused Neuro: alert and oriented x3, moving all extremities Psych: appropriate affect Objective Data Active Medications Acetaminophen (Acetaminophen 325 Mg Tablet) 650 mg PO Q6H PRN PRN Reason: Pain, Mild (Pain Scale 1-3) Last Admin: 09/17/23 05:44 Dose: 650 mg Documented By: LENNY Al Hydroxide/Mg Hydroxide (Magnesium Hydrox/Alum Hydrox 30 Ml Oral.Susp) 30 ml PO Q6H PRN PRN Reason: Heartburn Last Admin: 09/16/23 15:02 Dose: 30 ml Documented By: BERTA Albuterol Sulfate (Albuterol Sulfate 90 Mcg 8 Gm Inhaler) 2 puff INHALE Q4H PRN PRN Reason: for wheezing Amlodipine Besylate (Amlodipine Besylate 10 Mg Tablet) 10 mg PO DAILY [facility]; Protocol Last Admin: 09/17/23 08:54 Dose: 10 mg Documented By: CELSO Aspirin (Aspirin Enteric Coated 81 Mg Tablet.) 81 mg PO DAILY [facility] Last Admin: 09/17/23 08:39 Dose: 81 mg Documented By: CELSO Atorvastatin Calcium (Atorvastatin Calcium 40 Mg Tablet) 40 mg PO BEDTIME [facility] Last Admin: 09/16/23 21:04 Dose: 40 mg Documented By: LENNY Bisacodyl (Bisacodyl 5 Mg Tablet.) 10 mg PO DAILY [facility] Calcitriol (Calcitriol 0.25 Mcg Capsule) 0.25 mcg PO [facility] Last Admin: 09/15/23 20:17 Dose: 0.25 mcg Documented By: EPIFANIO Cinacalcet (Cinacalcet Hcl 30 Mg Tablet) 30 mg PO [facility] Last Admin: 09/15/23 20:17 Dose: 30 mg Documented By: EPIFANIO Clonazepam (Clonazepam 1 Mg Tablet) 1 mg PO BEDTIME [facility] Clonazepam (Clonazepam 0.5 Mg Tablet) 0.5 mg PO DAILY [facility] Duloxetine HCl (Duloxetine Hcl 30 Mg Capsule.) 30 mg PO DAILY [facility] Last Admin: 09/17/23 08:39 Dose: 30 mg Documented By: CELSO Glucose (Glucose Gel 15 Gm Gel..Gram.) 15 gm PO Q15M PRN; Protocol PRN Reason: per Hypoglycemia Standing Ord. Heparin Sodium (Porcine) (Heparin Sodium,Porcine 5,000 Unit/Ml Vial) 5,000 unit INTRACATH MOWEFR@1645 [facility] Last Admin: 09/14/23 16:22 Dose: Not Given Documented By: LEXIS Non-Admin Reason: Not given by dialysis Dextrose (D10) 250 mls @ 750 mls/hr IV Q15M PRN PRN Reason: per Hypoglycemia Standing Ord. Insulin Glargine (Insulin Glargine,Hum.Rec.Anlog 100 Unit/Ml 10 Ml Vial) 20 unit SUBCUT BEDTIME [facility] Last Admin: 09/16/23 21:04 Dose: 20 unit Documented By: LENNY Insulin Human Lispro (Insulin Lispro 100 Unit/Ml 3 Ml Vial) 0 unit SUBCUT QIDACHS [facility]; Protocol Last Admin: 09/17/23 07:39 Dose: Not Given Documented By: CELSO Non-Admin Reason: No Insulin Coverage Lactulose (Lactulose 20 Gm/30 Ml Solution) 20 gm PO TID [facility] Losartan Potassium (Losartan Potassium 50 Mg Tablet) 100 mg PO DAILY [facility]; Protocol Last Admin: 09/17/23 08:39 Dose: 100 mg Documented By: CELSO Metoprolol Succinate (Metoprolol Succinate Er 100 Mg Tab.Er.24h) 100 mg PO DAILY [facility]; Protocol Last Admin: 09/17/23 08:54 Dose: 100 mg Documented By: CELSO Montelukast Sodium (Montelukast Sodium 10 Mg Tablet) 10 mg PO BEDTIME [facility] Last Admin: 09/16/23 21:04 Dose: 10 mg Documented By: LENNY Omeprazole (Omeprazole 20 Mg Capsule.Dr) 20 mg PO DAILY@0630 [facility] Last Admin: 09/17/23 05:44 Dose: 20 mg Documented By: LENNY Ondansetron HCl (Ondansetron Hcl 4 Mg/2 Ml Vial) 4 mg IVPUSH Q8H PRN PRN Reason: Nausea and Vomiting Oxycodone HCl (Oxycodone Hcl Immed Release 5 Mg Tablet) 10 mg PO Q4H PRN PRN Reason: Pain, Severe (Pain Scale 7-10) Last Admin: 09/17/23 05:44 Dose: 10 mg Documented By: LENNY Polyethylene Glycol (Polyethylene Glycol 3350 17 Gm Powd.Pack) 17 gm PO BID [facility] Senna/Docusate Sodium (Sennosides/Docusate Sodium Tablet) 2 tab PO BID [facility] Last Admin: 09/17/23 08:39 Dose: 2 tab Documented By: CELSO Sevelamer Carbonate (Sevelamer Carbonate Tablet 800 Mg Tablet) 800 mg PO TIDWM PRN PRN Reason: WITH MEALS Last Admin: 09/14/23 08:36 Dose: 800 mg Documented By: AILIN Sodium Bicarbonate (Sodium Bicarbonate 650 Mg Tablet) 650 mg PO TID [facility] Last Admin: 09/17/23 08:39 Dose: 650 mg Documented By: CELSO Sodium Chloride (0.9 % Sodium Chloride Flush 3 Ml Syringe) 3 ml IVFLUSH QSHIFT [facility] Last Admin: 09/17/23 08:40 Dose: 3 ml Documented By: CELSO Trazodone HCl (Trazodone Hcl 100 Mg Tablet) 200 mg PO BEDTIME [facility] Last Admin: 09/16/23 21:04 Dose: 200 mg Documented By: LENNY Labs 09/11/23 07:02 09/17/23 08:03 Labs: Laboratory Results - last 24 hr 09/16/23 09/16/23 09/16/23 11:14 15:46 20:01 Anion Gap Estim Creat Clear Calc Estimated GFR POC Glucose 112 128 H 115 Random Glucose Calcium 09/17/23 09/17/23 07:20 08:03 Anion Gap 18 Estim Creat Clear Calc 10.6 Estimated GFR 4 POC Glucose 128 H Random Glucose 130 H Calcium 7.8 L D Assessment and Plan (1) ESRD needing dialysis: Status: Acute (2) Uncontrolled diabetes mellitus with hyperglycemia, with long-term current use of insulin: Status: Acute Plan d8 43yo F with DM1 + polyneuropathy, ESRD on HD, HTN, HLD, mood disorder, CAD with hx NSTEMI, hx cauda equina syndrome with chronic BLE weakness, DM2 gastroparesis, moderate persistent asthma, morbidly obese admitted after inability to access fistula found to have hyperK Permacath placed acute hyperK due to ESRD - resolved with HD - continue HD MWF, awaiting outpt HD placement - continue sevelamer - continue bicarbonate - continue cinecalcet anemia of ESRD - epo given CAD - ASA, statin, metoprolol succinate adrenal incidentaloma - outpt adrenal CT HTN - amlodipine, metoprolol succinate, losartan DM1 with hyperglycemia - basal-bolus insulin moderate persistent asthma not in acute exac - continue montelukast, prn albuterol neuropathy - duloxetine mood disorder - clonazepam constipation - bowel regimen VTE ppx - SCDs In my clinical judgment, the patient requires continued inpatient hospitalization for the following reasons: HD placement Total time managing care of this patient today: 35 minutes. Quality Stroke Does the patient have a stroke diagnosis?: No VTE Prior VTE?: No VTE Risk Level:: Medical - moderate - high VTE Device Contraindication: Treatment Not Indicated VTE Drug Contraindication: N/A - Med Ordered
[2023-09-17] MEDS: clonazePAM 0.5 MG TABLET PO (10:47)
[2023-09-17] MEDS: bisacodyL 5 MG TABLET.DR 10 MG PO (10:47)
--- NOTE | 2023-09-17 12:41 | W.PM.DNNEP ---
Subjective Subjective This patient was seen during dialysis. Interval history: c/o constipation HD today Physical Exam Vital Signs: Vital Signs: Last Vital Signs Temp 98.0 F 09/17/23 07:16 Pulse 55 09/17/23 07:16 Resp 16 09/17/23 07:16 BP 114/56 L 09/17/23 08:51 Pulse Ox 98 09/17/23 07:16 O2 Del Method Room Air 09/17/23 07:16 BMI result Body Mass Index 47.0 Const: General: comfortable and no acute distress Orientation/consciousness: patient oriented x3 HEENT: Head: Yes normocephalic Mouth: Normal oral and palatal mucosa present Eyes: EOM: EOMs intact bilaterally Neck: Neck: Yes supple Resp: Auscultation: clear to auscultation bilaterally Cardio: Jugular venous distension: no JVD Rate: regular rate GI: Palpation (GI): Soft to palpation Auscultation: normal bowel sounds : General: Yes no CVA tenderness Back/Spine/Pelvis: Back: no CVA tenderness Skin: General skin exam: no rashes or lesions noted Neuro: General: patient oriented x3 Assessment & Plan Assessment and plan (1) ESRD needing dialysis: Status: Acute Plan Has ESRD from diabetic nephropathy; Had been getting home hemodialysis in the past and in center recently Had issues with the access and new PermCath was placed 4 days ago by IR Was hyperkalemic and was dialyzed Procrit 95621 units subcutaneous once a week Renvela 1600 mg 3 times a day with meals Low potassium, low phosphorus diet with a fluid restriction She wants to stay on home Hemo Await placement Shall closely follow-up during her current hospital stay. Time Spent With Patient Time: Total time managing care of this patient today ____ minutes. Procedures Date of Service Date of Service: 09/18/23
[2023-09-17 14:59] LABS: Glucose, Whole Blood 125 mg/dL (60-115)
[2023-09-17 16:07] LABS: Glucose, Whole Blood 142 mg/dL (60-115)
[2023-09-17] MEDS: Heparin Sodium,Porcine 5,000 UNIT/ML VIAL 5000 UNIT INTRACATH (16:27)
[2023-09-17 20:47] LABS: Glucose, Whole Blood 176 mg/dL (60-115)
[2023-09-17] MEDS: ondansetron HCL 4 MG/2 ML VIAL IVPUSH (22:46)
[2023-09-17] MEDS: Insulin Glargine,Hum.rec.anlog 100 UNIT/ML 10 ML VIAL 20 UNIT SUBCUT (22:46)
[2023-09-17] MEDS: clonazePAM 1 MG TABLET PO (22:46)
[2023-09-17] MEDS: Montelukast Sodium 10 MG TABLET PO (22:46)
[2023-09-17] MEDS: traZODone HCL 100 MG TABLET 200 MG PO (22:46)
[2023-09-17] MEDS: Atorvastatin Calcium 40 MG TABLET PO (22:46)
[2023-09-17] MEDS: Insulin Lispro 100 UNIT/ML 3 ML VIAL SUBCUT (22:47)
[2023-09-18] VITALS (7 sets, daily range): BP systolic 90–124; BP diastolic 50–60; PULSE 50–58; RESP 16–20; TEMP 36.1–36.8; O2SAT 93–97
[2023-09-18] MEDS: oxyCODONE HCl Immed Release 5 MG TABLET 10 MG PO ×4 (05:49→20:28)
[2023-09-18] MEDS: Omeprazole 20 MG CAPSULE.DR PO (05:50)
[2023-09-18] MEDS: Acetaminophen 325 MG TABLET 650 MG PO ×2 (05:50→20:28)
[2023-09-18 07:44] LABS: Glucose, Whole Blood 93 mg/dL (60-115)
[2023-09-18] MEDS: Sodium Bicarbonate 650 MG TABLET PO ×2 (09:35→20:28)
[2023-09-18] MEDS: clonazePAM 0.5 MG TABLET PO (09:35)
[2023-09-18] MEDS: bisacodyL 5 MG TABLET.DR 10 MG PO (09:35)
[2023-09-18] MEDS: Lactulose 20 GM/30 ML SOLUTION PO (09:35)
[2023-09-18] MEDS: Aspirin Enteric Coated 81 MG TABLET.DR PO (09:36)
[2023-09-18] MEDS: DULoxetine HCl 30 MG CAPSULE.DR PO (09:36)
[2023-09-18] MEDS: Sennosides/Docusate Sodium TABLET 2 TAB PO ×2 (09:36→20:27)
[2023-09-18] MEDS: Metoprolol Succinate ER 100 MG TAB.ER.24H PO (09:36)
[2023-09-18] MEDS: Losartan Potassium 50 MG TABLET 100 MG PO (09:36)
[2023-09-18] MEDS: amLODIPine Besylate 10 MG TABLET PO (09:36)
[2023-09-18] MEDS: 0.9 % Sodium Chloride Flush 3 ML SYRINGE IVFLUSH ×3 (09:37→20:28)
--- NOTE | 2023-09-18 10:34 | MHC.CM.PN ---
This consumer loan underwriter placed call to [facility] to inquire about pt's outpt dialysis spot and if it was being worked on. Spoke w/ Marty, who ensure Dr. Sherman is working on outpatient HD spot for pt.
[2023-09-18 11:29] LABS: Glucose, Whole Blood 77 mg/dL (60-115)
--- NOTE | 2023-09-18 12:04 | P.PNIM_ITS ---
Subjective Subjective Date of Service: 09/18/23 Interval History: c/o abd discomfort juan m postprandial; pt has hx gastroparesis Review of Systems Review of Systems: Yes all other systems are reviewed and are negative Physical Exam 2 Vital Signs: Vital Signs: Last Vital Signs Temp 97.7 F 09/18/23 11:10 Pulse 54 09/18/23 11:10 Resp 20 09/18/23 11:10 BP 108/54 L 09/18/23 11:10 Pulse Ox 96 09/18/23 11:10 O2 Del Method Room Air 09/18/23 11:10 BMI result Body Mass Index 47.0 Gen: in no acute distress HEENT: sclera anicteric, moist mucus membranes Neck: supple, R subclavian tunneled HD catheter Lungs: clear to auscultation bilaterally Heart: regular rate and rhythm, no murmurs Abd: soft, non-tender, non-distended, obese Ext: no edema, LUE fistula clotted Skin: warm/well-perfused Neuro: alert and oriented x3, moving all extremities Psych: appropriate affect Objective Data Active Medications Acetaminophen (Acetaminophen 325 Mg Tablet) 650 mg PO Q6H PRN PRN Reason: Pain, Mild (Pain Scale 1-3) Last Admin: 09/18/23 05:50 Dose: 650 mg Documented By: KESHA Al Hydroxide/Mg Hydroxide (Magnesium Hydrox/Alum Hydrox 30 Ml Oral.Susp) 30 ml PO Q6H PRN PRN Reason: Heartburn Last Admin: 09/16/23 15:02 Dose: 30 ml Documented By: BERTA Albuterol Sulfate (Albuterol Sulfate 90 Mcg 8 Gm Inhaler) 2 puff INHALE Q4H PRN PRN Reason: for wheezing Amlodipine Besylate (Amlodipine Besylate 10 Mg Tablet) 10 mg PO DAILY [facility]; Protocol Last Admin: 09/18/23 09:36 Dose: 10 mg Documented By: CELSO Aspirin (Aspirin Enteric Coated 81 Mg Tablet.) 81 mg PO DAILY [facility] Last Admin: 09/18/23 09:36 Dose: 81 mg Documented By: CELSO Atorvastatin Calcium (Atorvastatin Calcium 40 Mg Tablet) 40 mg PO BEDTIME [facility] Last Admin: 09/17/23 22:46 Dose: 40 mg Documented By: KESHA Bisacodyl (Bisacodyl 5 Mg Tablet.) 10 mg PO DAILY [facility] Last Admin: 09/18/23 09:35 Dose: 10 mg Documented By: CELSO Calcitriol (Calcitriol 0.25 Mcg Capsule) 0.25 mcg PO [facility] Last Admin: 09/15/23 20:17 Dose: 0.25 mcg Documented By: EPIFANIO Cinacalcet (Cinacalcet Hcl 30 Mg Tablet) 30 mg PO [facility] Last Admin: 09/15/23 20:17 Dose: 30 mg Documented By: EPIFANIO Clonazepam (Clonazepam 1 Mg Tablet) 1 mg PO BEDTIME [facility] Last Admin: 09/17/23 22:46 Dose: 1 mg Documented By: KESHA Clonazepam (Clonazepam 0.5 Mg Tablet) 0.5 mg PO DAILY [facility] Last Admin: 09/18/23 09:35 Dose: 0.5 mg Documented By: CELSO Duloxetine HCl (Duloxetine Hcl 30 Mg Capsule.) 30 mg PO DAILY [facility] Last Admin: 09/18/23 09:36 Dose: 30 mg Documented By: CELSO Glucose (Glucose Gel 15 Gm Gel..Gram.) 15 gm PO Q15M PRN; Protocol PRN Reason: per Hypoglycemia Standing Ord. Heparin Sodium (Porcine) (Heparin Sodium,Porcine 5,000 Unit/Ml Vial) 5,000 unit INTRACATH MOWEFR@1645 [facility] Last Admin: 09/17/23 16:27 Dose: 5,000 unit Documented By: CELSO Dextrose (D10) 250 mls @ 750 mls/hr IV Q15M PRN PRN Reason: per Hypoglycemia Standing Ord. Insulin Glargine (Insulin Glargine,Hum.Rec.Anlog 100 Unit/Ml 10 Ml Vial) 20 unit SUBCUT BEDTIME [facility] Last Admin: 09/17/23 22:46 Dose: 20 unit Documented By: KESHA Insulin Human Lispro (Insulin Lispro 100 Unit/Ml 3 Ml Vial) 0 unit SUBCUT QIDACHS [facility]; Protocol Last Admin: 09/18/23 11:37 Dose: Not Given Documented By: CELSO Non-Admin Reason: No Insulin Coverage Lactulose (Lactulose 20 Gm/30 Ml Solution) 20 gm PO TID [facility] Last Admin: 09/18/23 09:35 Dose: 20 gm Documented By: CELSO Losartan Potassium (Losartan Potassium 50 Mg Tablet) 100 mg PO DAILY [facility]; Protocol Last Admin: 09/18/23 09:36 Dose: 100 mg Documented By: CELSO Metoclopramide HCl (Metoclopramide Hcl 5 Mg Tablet) 5 mg PO Q6H PRN PRN Reason: nmausea/vomiting Metoprolol Succinate (Metoprolol Succinate Er 100 Mg Tab.Er.24h) 100 mg PO DAILY [facility]; Protocol Last Admin: 09/18/23 09:36 Dose: 100 mg Documented By: CELSO Montelukast Sodium (Montelukast Sodium 10 Mg Tablet) 10 mg PO BEDTIME [facility] Last Admin: 09/17/23 22:46 Dose: 10 mg Documented By: KESHA Omeprazole (Omeprazole 20 Mg Capsule.Dr) 20 mg PO DAILY@0630 [facility] Last Admin: 09/18/23 05:50 Dose: 20 mg Documented By: KESHA Ondansetron HCl (Ondansetron Hcl 4 Mg/2 Ml Vial) 4 mg IVPUSH Q8H PRN PRN Reason: Nausea and Vomiting Last Admin: 09/17/23 22:46 Dose: 4 mg Documented By: KESHA Oxycodone HCl (Oxycodone Hcl Immed Release 5 Mg Tablet) 10 mg PO Q4H PRN PRN Reason: Pain, Severe (Pain Scale 7-10) Last Admin: 09/18/23 09:36 Dose: 10 mg Documented By: CELSO Polyethylene Glycol (Polyethylene Glycol 3350 17 Gm Powd.Pack) 17 gm PO BID [facility] Last Admin: 09/18/23 09:37 Dose: Not Given Documented By: CELSO Non-Admin Reason: Patient Refused Senna/Docusate Sodium (Sennosides/Docusate Sodium Tablet) 2 tab PO BID [facility] Last Admin: 09/18/23 09:36 Dose: 2 tab Documented By: CELSO Sevelamer Carbonate (Sevelamer Carbonate Tablet 800 Mg Tablet) 800 mg PO TIDWM PRN PRN Reason: WITH MEALS Last Admin: 09/14/23 08:36 Dose: 800 mg Documented By: AILIN Sodium Bicarbonate (Sodium Bicarbonate 650 Mg Tablet) 650 mg PO TID [facility] Last Admin: 09/18/23 09:35 Dose: 650 mg Documented By: CELSO Sodium Chloride (0.9 % Sodium Chloride Flush 3 Ml Syringe) 3 ml IVFLUSH QSHIFT [facility] Last Admin: 09/18/23 09:37 Dose: 3 ml Documented By: CELSO Trazodone HCl (Trazodone Hcl 100 Mg Tablet) 200 mg PO BEDTIME [facility] Last Admin: 09/17/23 22:46 Dose: 200 mg Documented By: KESHA Labs 09/11/23 07:02 09/17/23 08:03 Labs: Laboratory Results - last 24 hr 09/17/23 09/17/23 09/17/23 13:30 15:22 20:43 POC Glucose 125 H 142 H 176 H 09/18/23 09/18/23 07:27 11:13 POC Glucose 93 77 Assessment and Plan (1) ESRD needing dialysis: Status: Acute (2) Uncontrolled diabetes mellitus with hyperglycemia, with long-term current use of insulin: Status: Acute Plan d9 43yo F with DM1 + polyneuropathy, ESRD on HD, HTN, HLD, mood disorder, CAD with hx NSTEMI, hx cauda equina syndrome with chronic BLE weakness, DM2 gastroparesis, moderate persistent asthma, morbidly obese admitted after inability to access fistula found to have hyperK Permacath placed acute hyperK due to ESRD - resolved with HD - continue HD MWF, awaiting outpt HD placement, eventually wishes to go back on home HD - continue sevelamer - continue bicarbonate - continue cinecalcet anemia of ESRD - epo given CAD - ASA, statin, metoprolol succinate adrenal incidentaloma - outpt adrenal CT HTN - amlodipine, metoprolol succinate, losartan DM1 with hyperglycemia - basal-bolus insulin DM gastroparesis - start prn metoclopramide moderate persistent asthma not in acute exac - continue montelukast, prn albuterol neuropathy - duloxetine mood disorder - clonazepam constipation - bowel regimen VTE ppx - SCDs In my clinical judgment, the patient requires continued inpatient hospitalization for the following reasons: HD placement Total time managing care of this patient today: 35 minutes. Quality Stroke Does the patient have a stroke diagnosis?: No VTE Prior VTE?: No VTE Risk Level:: Medical - moderate - high VTE Device Contraindication: Treatment Not Indicated VTE Drug Contraindication: N/A - Med Ordered
--- NOTE | 2023-09-18 14:40 | P.PNNP_ITS ---
Subjective Subjective Date of Service: 09/19/23 Interval history: Events noted Had dialysis yesterday an uneventful Physical Exam 2 Vital Signs: Vital Signs: Last Vital Signs Temp 97.7 F 09/18/23 11:10 Pulse 54 09/18/23 11:10 Resp 20 09/18/23 11:10 BP 108/54 L 09/18/23 11:10 Pulse Ox 96 09/18/23 11:10 O2 Del Method Room Air 09/18/23 11:10 BMI result Body Mass Index 47.0 Const: General: comfortable and no acute distress O rientation/consciousness: patient oriented x3 HEENT: Head: Yes normocephalic Mouth: Normal oral and palatal mucosa present Eyes: EOM: EOMs intact bilaterally Neck: Neck: Yes supple Resp: Auscultation: clear to auscultation bilaterally Cardio: Jugular venous distension: no JVD Rate: regular rate GI: Palpation (GI): Soft to palpation Auscultation: normal bowel sounds : General: Yes no CVA tenderness Back/Spine/Pelvis: Back: no CVA tenderness Skin: General skin exam: no rashes or lesions noted Neuro: General: patient oriented x3 Objective Data Labs 09/11/23 07:02 09/17/23 08:03 Labs: Laboratory Results - last 24 hr 09/17/23 09/17/23 09/17/23 13:30 15:22 20:43 POC Glucose 125 H 142 H 176 H 09/18/23 09/18/23 07:27 11:13 POC Glucose 93 77 Microbiology Microbiology Results: Microbiology 09/10/23 15:41 Blood - Venous Blood Culture - Final No growth after 5 days. 09/10/23 15:41 Blood - Venous Blood Culture - Final No growth after 5 days. Procedures Date of Service Date of Service: 09/19/23 Assessment & Plan Assessment and plan (1) ESRD needing dialysis: Status: Acute Plan Has ESRD from diabetic nephropathy; Had been getting home hemodialysis in the past and in center recently Had issues with the access and new PermCath was placed 4 days ago by IR Was hyperkalemic and was dialyzed Procrit 38526 units subcutaneous once a week Renvela 1600 mg 3 times a day with meals Low potassium, low phosphorus diet with a fluid restriction She wants to stay on home Hemo Await placement Shall closely follow-up during her current hospital stay. Time Spent With Patient Time: Total time managing care of this patient today ____ minutes. Progress Note: Quality Stroke Does the patient have a stroke diagnosis?: No
[2023-09-18 16:09] LABS: Glucose, Whole Blood 98 mg/dL (60-115)
[2023-09-18] MEDS: Atorvastatin Calcium 40 MG TABLET PO (20:27)
[2023-09-18] MEDS: Montelukast Sodium 10 MG TABLET PO (20:28)
[2023-09-18] MEDS: traZODone HCL 100 MG TABLET 200 MG PO (20:28)
[2023-09-18] MEDS: clonazePAM 1 MG TABLET PO (20:28)
[2023-09-18] MEDS: Insulin Glargine,Hum.rec.anlog 100 UNIT/ML 10 ML VIAL 20 UNIT SUBCUT (20:28)
[2023-09-18 20:31] LABS: Glucose, Whole Blood 142 mg/dL (60-115)
[2023-09-18] MEDS: Cinacalcet HCl 30 MG TABLET PO (20:37)
[2023-09-18] MEDS: calcitrioL 0.25 MCG CAPSULE PO (20:37)
[2023-09-19 03:05] VITALS: BP 112/55; PULSE 53; RESP 14; TEMP 36.2; O2SAT 97
[2023-09-19] MEDS: Acetaminophen 325 MG TABLET 650 MG PO (04:44)
[2023-09-19] MEDS: oxyCODONE HCl Immed Release 5 MG TABLET 10 MG PO ×3 (04:44→20:11)
[2023-09-19] MEDS: Omeprazole 20 MG CAPSULE.DR PO (04:44)
[2023-09-19 07:21] VITALS: BP 122/60; PULSE 57; RESP 20; TEMP 36.7; O2SAT 96
[2023-09-19 07:30] LABS: Glucose, Whole Blood 98 mg/dL (60-115)
--- NOTE | 2023-09-19 10:11 | HO.PM.IMPN ---
Subjective Subjective Date of Service: 09/19/23 Interval History: having BMs, abd improved HD today Review of Systems Review of Systems: Yes all other systems are reviewed and are negative Physical Exam Vital Signs: Vital Signs: Last Vital Signs Temp 98.1 F 09/19/23 07:21 Pulse 57 09/19/23 07:21 Resp 20 09/19/23 07:21 BP 122/60 09/19/23 07:21 Pulse Ox 96 09/19/23 07:21 O2 Del Method Room Air 09/19/23 07:21 BMI result Body Mass Index 47.0 Gen: in no acute distress HEENT: sclera anicteric, moist mucus membranes Neck: supple, R subclavian tunneled HD catheter Lungs: clear to auscultation bilaterally Heart: regular rate and rhythm, no murmurs Abd: soft, non-tender, non-distended, obese Ext: no edema, LUE fistula clotted Skin: warm/well-perfused Neuro: alert and oriented x3, moving all extremities Psych: appropriate affect Objective Data Active Medications Acetaminophen (Acetaminophen 325 Mg Tablet) 650 mg PO Q6H PRN PRN Reason: Pain, Mild (Pain Scale 1-3) Last Admin: 09/19/23 04:44 Dose: 650 mg Documented By: LENNY Al Hydroxide/Mg Hydroxide (Magnesium Hydrox/Alum Hydrox 30 Ml Oral.Susp) 30 ml PO Q6H PRN PRN Reason: Heartburn Last Admin: 09/16/23 15:02 Dose: 30 ml Documented By: BERTA Albuterol Sulfate (Albuterol Sulfate 90 Mcg 8 Gm Inhaler) 2 puff INHALE Q4H PRN PRN Reason: for wheezing Amlodipine Besylate (Amlodipine Besylate 10 Mg Tablet) 10 mg PO DAILY [facility]; Protocol Last Admin: 09/18/23 09:36 Dose: 10 mg Documented By: CELSO Aspirin (Aspirin Enteric Coated 81 Mg Tablet.) 81 mg PO DAILY [facility] Last Admin: 09/18/23 09:36 Dose: 81 mg Documented By: CELSO Atorvastatin Calcium (Atorvastatin Calcium 40 Mg Tablet) 40 mg PO BEDTIME [facility] Last Admin: 09/18/23 20:27 Dose: 40 mg Documented By: LENNY Bisacodyl (Bisacodyl 5 Mg Tablet.) 10 mg PO DAILY [facility] Last Admin: 09/18/23 09:35 Dose: 10 mg Documented By: CELSO Calcitriol (Calcitriol 0.25 Mcg Capsule) 0.25 mcg PO [facility] Last Admin: 09/18/23 20:37 Dose: 0.25 mcg Documented By: LENNY Cinacalcet (Cinacalcet Hcl 30 Mg Tablet) 30 mg PO [facility] Last Admin: 09/18/23 20:37 Dose: 30 mg Documented By: LENNY Clonazepam (Clonazepam 1 Mg Tablet) 1 mg PO BEDTIME [facility] Last Admin: 09/18/23 20:28 Dose: 1 mg Documented By: LENNY Clonazepam (Clonazepam 0.5 Mg Tablet) 0.5 mg PO DAILY [facility] Last Admin: 09/18/23 09:35 Dose: 0.5 mg Documented By: CELSO Duloxetine HCl (Duloxetine Hcl 30 Mg Capsule.) 30 mg PO DAILY [facility] Last Admin: 09/18/23 09:36 Dose: 30 mg Documented By: CELSO Glucose (Glucose Gel 15 Gm Gel..Gram.) 15 gm PO Q15M PRN; Protocol PRN Reason: per Hypoglycemia Standing Ord. Heparin Sodium (Porcine) (Heparin Sodium,Porcine 5,000 Unit/Ml Vial) 5,000 unit INTRACATH MOWEFR@1645 [facility] Last Admin: 09/17/23 16:27 Dose: 5,000 unit Documented By: CELSO Dextrose (D10) 250 mls @ 750 mls/hr IV Q15M PRN PRN Reason: per Hypoglycemia Standing Ord. Insulin Glargine (Insulin Glargine,Hum.Rec.Anlog 100 Unit/Ml 10 Ml Vial) 20 unit SUBCUT BEDTIME [facility] Last Admin: 09/18/23 20:28 Dose: 20 unit Documented By: LENNY Insulin Human Lispro (Insulin Lispro 100 Unit/Ml 3 Ml Vial) 0 unit SUBCUT QIDACHS [facility]; Protocol Last Admin: 09/19/23 07:52 Dose: Not Given Documented By: ROGERIO Non-Admin Reason: No Insulin Coverage Lactulose (Lactulose 20 Gm/30 Ml Solution) 20 gm PO TID [facility] Last Admin: 09/18/23 20:35 Dose: Not Given Documented By: LENNY Non-Admin Reason: Patient Refused Losartan Potassium (Losartan Potassium 50 Mg Tablet) 100 mg PO DAILY [facility]; Protocol Last Admin: 09/18/23 09:36 Dose: 100 mg Documented By: CELSO Metoclopramide HCl (Metoclopramide Hcl 5 Mg Tablet) 5 mg PO Q6H PRN PRN Reason: nmausea/vomiting Metoprolol Succinate (Metoprolol Succinate Er 100 Mg Tab.Er.24h) 100 mg PO DAILY [facility]; Protocol Last Admin: 09/18/23 09:36 Dose: 100 mg Documented By: CELSO Montelukast Sodium (Montelukast Sodium 10 Mg Tablet) 10 mg PO BEDTIME [facility] Last Admin: 09/18/23 20:28 Dose: 10 mg Documented By: LENNY Omeprazole (Omeprazole 20 Mg Capsule.Dr) 20 mg PO DAILY@0630 [facility] Last Admin: 09/19/23 04:44 Dose: 20 mg Documented By: LENNY Ondansetron HCl (Ondansetron Hcl 4 Mg/2 Ml Vial) 4 mg IVPUSH Q8H PRN PRN Reason: Nausea and Vomiting Last Admin: 09/17/23 22:46 Dose: 4 mg Documented By: KESHA Oxycodone HCl (Oxycodone Hcl Immed Release 5 Mg Tablet) 10 mg PO Q4H PRN PRN Reason: Pain, Severe (Pain Scale 7-10) Last Admin: 09/19/23 04:44 Dose: 10 mg Documented By: LENNY Polyethylene Glycol (Polyethylene Glycol 3350 17 Gm Powd.Pack) 17 gm PO BID [facility] Last Admin: 09/18/23 20:35 Dose: Not Given Documented By: LENNY Non-Admin Reason: No Insulin Coverage Senna/Docusate Sodium (Sennosides/Docusate Sodium Tablet) 2 tab PO BID [facility] Last Admin: 09/18/23 20:27 Dose: 2 tab Documented By: LENNY Sevelamer Carbonate (Sevelamer Carbonate Tablet 800 Mg Tablet) 800 mg PO TIDWM PRN PRN Reason: WITH MEALS Last Admin: 09/14/23 08:36 Dose: 800 mg Documented By: AILIN Sodium Bicarbonate (Sodium Bicarbonate 650 Mg Tablet) 650 mg PO TID [facility] Last Admin: 09/18/23 20:28 Dose: 650 mg Documented By: LENNY Sodium Chloride (0.9 % Sodium Chloride Flush 3 Ml Syringe) 3 ml IVFLUSH QSHIFT [facility] Last Admin: 09/18/23 20:28 Dose: 3 ml Documented By: LENNY Trazodone HCl (Trazodone Hcl 100 Mg Tablet) 200 mg PO BEDTIME [facility] Last Admin: 09/18/23 20:28 Dose: 200 mg Documented By: LENNY Labs 09/11/23 07:02 09/17/23 08:03 Labs: Laboratory Results - last 24 hr 09/18/23 09/18/23 09/18/23 11:13 15:52 20:13 POC Glucose 77 98 142 H 09/19/23 07:27 POC Glucose 98 Assessment and Plan (1) ESRD needing dialysis: Status: Acute (2) Uncontrolled diabetes mellitus with hyperglycemia, with long-term current use of insulin: Status: Acute Plan d10 43yo F with DM1 + polyneuropathy, ESRD on HD, HTN, HLD, mood disorder, CAD with hx NSTEMI, hx cauda equina syndrome with chronic BLE weakness, DM2 gastroparesis, moderate persistent asthma, morbidly obese admitted after inability to access fistula found to have hyperK Permacath placed acute hyperK due to ESRD - resolved with HD - continue HD MWF, awaiting outpt HD placement, eventually wishes to go back on home HD - continue sevelamer - continue bicarbonate - continue cinecalcet anemia of ESRD - epo given CAD - ASA, statin, metoprolol succinate adrenal incidentaloma - outpt adrenal CT HTN - amlodipine, metoprolol succinate, losartan DM1 with hyperglycemia - basal-bolus insulin DM gastroparesis - prn metoclopramide moderate persistent asthma not in acute exac - continue montelukast, prn albuterol neuropathy - duloxetine mood disorder - clonazepam constipation - bowel regimen VTE ppx - SCDs In my clinical judgment, the patient requires continued inpatient hospitalization for the following reasons: HD placement Total time managing care of this patient today: 35 minutes. Quality Stroke Does the patient have a stroke diagnosis?: No VTE Prior VTE?: No VTE Risk Level:: Medical - moderate - high VTE Device Contraindication: Treatment Not Indicated VTE Drug Contraindication: N/A - Med Ordered
--- NOTE | 2023-09-19 10:37 | MHC.CM.PN ---
Pt is receiving HD today, she will be DC home when outpt HD has been arranged. She has [employer] services in the community and will resume those services.
[2023-09-19 11:12] LABS: Glucose, Whole Blood 112 mg/dL (60-115)
[2023-09-19 12:57] VITALS: BP 98/49; PULSE 56; RESP 20; TEMP 36.8; O2SAT 99
[2023-09-19] MEDS: Aspirin Enteric Coated 81 MG TABLET.DR PO (13:13)
[2023-09-19] MEDS: Sodium Bicarbonate 650 MG TABLET PO ×2 (13:13→20:09)
[2023-09-19] MEDS: Lactulose 20 GM/30 ML SOLUTION PO (13:13)
[2023-09-19] MEDS: DULoxetine HCl 30 MG CAPSULE.DR PO (13:13)
[2023-09-19] MEDS: bisacodyL 5 MG TABLET.DR 10 MG PO (13:13)
[2023-09-19] MEDS: clonazePAM 0.5 MG TABLET PO (13:13)
[2023-09-19] MEDS: 0.9 % Sodium Chloride Flush 3 ML SYRINGE IVFLUSH ×2 (13:18→16:16)
[2023-09-19 16:00] VITALS: BP 132/63; PULSE 64; RESP 20; TEMP 36.3; O2SAT 98
[2023-09-19 16:26] LABS: Glucose, Whole Blood 136 mg/dL (60-115)
--- NOTE | 2023-09-19 19:08 | PM.PNNEP ---
Subjective Subjective Date of Service: 09/19/23 Interval history: Seen on HD this AM. All recent data reviewed; D/W HD RN Physical Exam Vital Signs: Vital Signs: Last Vital Signs Temp 97.3 F 09/19/23 16:00 Pulse 64 09/19/23 16:00 Resp 20 09/19/23 16:00 BP 132/63 09/19/23 16:00 Pulse Ox 98 09/19/23 16:00 O2 Del Method Room Air 09/19/23 16:00 BMI result Body Mass Index 47.0 Const: General: comfortable and no acute distress Orientation/consciousness: patient oriented x3 HEENT: Head: Yes normocephalic Mouth: Normal oral and palatal mucosa present Eyes: EOM: EOMs intact bilaterally Neck: Neck: Yes supple Resp: Auscultation: clear to auscultation bilaterally Cardio: Jugular venous distension: no JVD Rate: regular rate GI: Palpation (GI): Soft to palpation Auscultation: normal bowel sounds Neuro: General: patient oriented x3 Objective Data Labs 09/11/23 07:02 09/17/23 08:03 Labs: Laboratory Results - last 24 hr 09/18/23 09/19/23 09/19/23 20:13 07:27 11:08 POC Glucose 142 H 98 112 09/19/23 16:15 POC Glucose 136 H Microbiology Microbiology Results: Microbiology 09/10/23 15:41 Blood - Venous Blood Culture - Final No growth after 5 days. 09/10/23 15:41 Blood - Venous Blood Culture - Final No growth after 5 days. Procedures Date of Service Date of Service: 09/19/23 Assessment & Plan Assessment and plan (1) ESRD needing dialysis: Status: Acute Plan Has ESRD from diabetic nephropathy; Seen on HD this AM Had been getting home hemodialysis in the past and in center recently Had issues with the access and new PermCath was placed by IR Procrit 61175 units subcutaneous once a week Renvela 1600 mg 3 times a day with meals Low potassium, low phosphorus diet with a fluid restriction Likely will have a HD spot for [facility] Unit 2nd shift ( starting from coming Sunday) Likely will be able to be D/[place] after HD Sunday Shall closely follow-up during her current hospital stay. Progress Note: Quality Stroke Does the patient have a stroke diagnosis?: No
[2023-09-19 19:26] VITALS: BP 148/61; PULSE 59; RESP 16; TEMP 36; O2SAT 97
[2023-09-19] MEDS: traZODone HCL 100 MG TABLET 200 MG PO (20:09)
[2023-09-19] MEDS: Atorvastatin Calcium 40 MG TABLET PO (20:10)
[2023-09-19] MEDS: clonazePAM 1 MG TABLET PO (20:10)
[2023-09-19] MEDS: Montelukast Sodium 10 MG TABLET PO (20:10)
[2023-09-19] MEDS: Insulin Glargine,Hum.rec.anlog 100 UNIT/ML 10 ML VIAL 20 UNIT SUBCUT (20:39)
[2023-09-19] MEDS: Insulin Lispro 100 UNIT/ML 3 ML VIAL SUBCUT (20:43)
[2023-09-19 20:45] LABS: Glucose, Whole Blood 162 mg/dL (60-115)
[2023-09-19 23:30] VITALS: BP 109/56; PULSE 62; RESP 16; TEMP 36.2; O2SAT 99
[2023-09-20 03:28] VITALS: BP 135/53; PULSE 57; RESP 16; TEMP 36.3; O2SAT 98
[2023-09-20] MEDS: oxyCODONE HCl Immed Release 5 MG TABLET 10 MG PO ×4 (06:40→21:12)
[2023-09-20] MEDS: Omeprazole 20 MG CAPSULE.DR PO (06:40)
[2023-09-20 07:24] LABS: Glucose, Whole Blood 148 mg/dL (60-115)
[2023-09-20 08:00] VITALS: BP 143/61; PULSE 60; RESP 18; TEMP 36.3; O2SAT 97
[2023-09-20] MEDS: Metoprolol Succinate ER 100 MG TAB.ER.24H PO (09:59)
[2023-09-20] MEDS: DULoxetine HCl 30 MG CAPSULE.DR PO (09:59)
[2023-09-20] MEDS: clonazePAM 0.5 MG TABLET PO (09:59)
[2023-09-20] MEDS: Sodium Bicarbonate 650 MG TABLET PO ×3 (10:00→20:41)
[2023-09-20] MEDS: amLODIPine Besylate 10 MG TABLET PO (10:00)
[2023-09-20] MEDS: Aspirin Enteric Coated 81 MG TABLET.DR PO (10:00)
[2023-09-20] MEDS: Losartan Potassium 50 MG TABLET 100 MG PO (10:03)
--- NOTE | 2023-09-20 10:54 | P.PNIM_ITS ---
Subjective Subjective Date of Service: 09/20/23 Interval History: no new events Review of Systems Review of Systems: Yes all other systems are reviewed and are negative Physical Exam 2 Vital Signs: Vital Signs: Last Vital Signs Temp 97.3 F 09/20/23 08:00 Pulse 60 09/20/23 08:00 Resp 18 09/20/23 08:00 BP 143/61 H 09/20/23 08:00 Pulse Ox 97 09/20/23 08:00 O2 Del Method Room Air 09/20/23 08:00 BMI result Body Mass Index 47.0 Gen: in no acute distress HEENT: sclera anicteric, moist mucus membranes Neck: supple, R subclavian tunneled HD catheter Lungs: clear to auscultation bilaterally Heart: regular rate and rhythm, no murmurs Abd: soft, non-tender, non-distended, obese Ext: no edema, LUE fistula clotted Skin: warm/well-perfused Neuro: alert and oriented x3, moving all extremities Psych: appropriate affect Objective Data Active Medications Acetaminophen (Acetaminophen 325 Mg Tablet) 650 mg PO Q6H PRN PRN Reason: Pain, Mild (Pain Scale 1-3) Last Admin: 09/19/23 04:44 Dose: 650 mg Documented By: LENNY Al Hydroxide/Mg Hydroxide (Magnesium Hydrox/Alum Hydrox 30 Ml Oral.Susp) 30 ml PO Q6H PRN PRN Reason: Heartburn Last Admin: 09/16/23 15:02 Dose: 30 ml Documented By: BERTA Albuterol Sulfate (Albuterol Sulfate 90 Mcg 8 Gm Inhaler) 2 puff INHALE Q4H PRN PRN Reason: for wheezing Amlodipine Besylate (Amlodipine Besylate 10 Mg Tablet) 10 mg PO DAILY [facility]; Protocol Last Admin: 09/20/23 10:00 Dose: 10 mg Documented By: DEMI Aspirin (Aspirin Enteric Coated 81 Mg Tablet.) 81 mg PO DAILY [facility] Last Admin: 09/20/23 10:00 Dose: 81 mg Documented By: DEMI Atorvastatin Calcium (Atorvastatin Calcium 40 Mg Tablet) 40 mg PO BEDTIME [facility] Last Admin: 09/19/23 20:10 Dose: 40 mg Documented By: ELVIRA Bisacodyl (Bisacodyl 5 Mg Tablet.) 10 mg PO DAILY [facility] Last Admin: 09/20/23 10:04 Dose: Not Given Documented By: DEMI Non-Admin Reason: Diarrhea/ loose stools- pt. refused Calcitriol (Calcitriol 0.25 Mcg Capsule) 0.25 mcg PO [facility] Last Admin: 09/18/23 20:37 Dose: 0.25 mcg Documented By: LENNY Cinacalcet (Cinacalcet Hcl 30 Mg Tablet) 30 mg PO [facility] Last Admin: 09/18/23 20:37 Dose: 30 mg Documented By: LENNY Clonazepam (Clonazepam 1 Mg Tablet) 1 mg PO BEDTIME [facility] Last Admin: 09/19/23 20:10 Dose: 1 mg Documented By: ELVIRA Clonazepam (Clonazepam 0.5 Mg Tablet) 0.5 mg PO DAILY [facility] Last Admin: 09/20/23 09:59 Dose: 0.5 mg Documented By: DEMI Duloxetine HCl (Duloxetine Hcl 30 Mg Capsule.Dr) 30 mg PO DAILY [facility] Last Admin: 09/20/23 09:59 Dose: 30 mg Documented By: DEMI Glucose (Glucose Gel 15 Gm Gel..Gram.) 15 gm PO Q15M PRN; Protocol PRN Reason: per Hypoglycemia Standing Ord. Heparin Sodium (Porcine) (Heparin Sodium,Porcine 5,000 Unit/Ml Vial) 5,000 unit INTRACATH MOWEFR@1645 [facility] Last Admin: 09/19/23 16:09 Dose: Not Given Documented By: ROGERIO Non-Admin Reason: to be given by HD Dextrose (D10) 250 mls @ 750 mls/hr IV Q15M PRN PRN Reason: per Hypoglycemia Standing Ord. Insulin Glargine (Insulin Glargine,Hum.Rec.Anlog 100 Unit/Ml 10 Ml Vial) 20 unit SUBCUT BEDTIME [facility] Last Admin: 09/19/23 20:39 Dose: 20 unit Documented By: ELVIRA Insulin Human Lispro (Insulin Lispro 100 Unit/Ml 3 Ml Vial) 0 unit SUBCUT QIDACHS [facility]; Protocol Last Admin: 09/20/23 09:48 Dose: Not Given Documented By: DEMI Non-Admin Reason: poc= 148 Lactulose (Lactulose 20 Gm/30 Ml Solution) 20 gm PO TID [facility] Last Admin: 09/20/23 10:04 Dose: Not Given Documented By: DEMI Non-Admin Reason: Diarrhea/ loose stools- pt. refused Losartan Potassium (Losartan Potassium 50 Mg Tablet) 100 mg PO DAILY [facility]; Protocol Last Admin: 09/20/23 10:03 Dose: 100 mg Documented By: DEMI Metoclopramide HCl (Metoclopramide Hcl 5 Mg Tablet) 5 mg PO Q6H PRN PRN Reason: nmausea/vomiting Metoprolol Succinate (Metoprolol Succinate Er 100 Mg Tab.Er.24h) 100 mg PO DAILY [facility]; Protocol Last Admin: 09/20/23 09:59 Dose: 100 mg Documented By: DEMI Montelukast Sodium (Montelukast Sodium 10 Mg Tablet) 10 mg PO BEDTIME [facility] Last Admin: 09/19/23 20:10 Dose: 10 mg Documented By: ELVIRA Omeprazole (Omeprazole 20 Mg Capsule.Dr) 20 mg PO DAILY@0630 [facility] Last Admin: 09/20/23 06:40 Dose: 20 mg Documented By: ELVIRA Ondansetron HCl (Ondansetron Hcl 4 Mg/2 Ml Vial) 4 mg IVPUSH Q8H PRN PRN Reason: Nausea and Vomiting Last Admin: 09/17/23 22:46 Dose: 4 mg Documented By: KESHA Oxycodone HCl (Oxycodone Hcl Immed Release 5 Mg Tablet) 10 mg PO Q4H PRN PRN Reason: Pain, Severe (Pain Scale 7-10) Last Admin: 09/20/23 06:40 Dose: 10 mg Documented By: ELVIRA Polyethylene Glycol (Polyethylene Glycol 3350 17 Gm Powd.Pack) 17 gm PO BID [facility] Last Admin: 09/20/23 10:04 Dose: Not Given Documented By: DEMI Non-Admin Reason: Diarrhea/ loose stools- pt. refused Senna/Docusate Sodium (Sennosides/Docusate Sodium Tablet) 2 tab PO BID [facility] Last Admin: 09/20/23 10:04 Dose: Not Given Documented By: DEMI Non-Admin Reason: Diarrhea/ loose stools- pt. refused Sevelamer Carbonate (Sevelamer Carbonate Tablet 800 Mg Tablet) 800 mg PO TIDWM PRN PRN Reason: WITH MEALS Last Admin: 09/14/23 08:36 Dose: 800 mg Documented By: AILIN Sodium Bicarbonate (Sodium Bicarbonate 650 Mg Tablet) 650 mg PO TID [facility] Last Admin: 09/20/23 10:00 Dose: 650 mg Documented By: DEMI Sodium Chloride (0.9 % Sodium Chloride Flush 3 Ml Syringe) 3 ml IVFLUSH QSHIFT [facility] Last Admin: 09/20/23 10:00 Dose: Not Given Documented By: DEMI Non-Admin Reason: No Access Trazodone HCl (Trazodone Hcl 100 Mg Tablet) 200 mg PO BEDTIME [facility] Last Admin: 09/19/23 20:09 Dose: 200 mg Documented By: ELVIRA Labs 09/11/23 07:02 09/17/23 08:03 Labs: Laboratory Results - last 24 hr 09/19/23 09/19/23 09/19/23 11:08 16:15 20:36 POC Glucose 112 136 H 162 H 09/20/23 07:04 POC Glucose 148 H Assessment and Plan (1) ESRD needing dialysis: Status: Acute (2) Uncontrolled diabetes mellitus with hyperglycemia, with long-term current use of insulin: Status: Acute Plan d11 43yo F with DM1 + polyneuropathy, ESRD on HD, HTN, HLD, mood disorder, CAD with hx NSTEMI, hx cauda equina syndrome with chronic BLE weakness, DM2 gastroparesis, moderate persistent asthma, morbidly obese admitted after inability to access fistula found to have hyperK Permacath placed acute hyperK due to ESRD - resolved with HD - continue HD MWF, awaiting outpt HD placement, eventually wishes to go back on home HD - continue sevelamer - continue bicarbonate - continue cinecalcet anemia of ESRD - epo given CAD - ASA, statin, metoprolol succinate adrenal incidentaloma - outpt adrenal CT HTN - amlodipine, metoprolol succinate, losartan DM1 with hyperglycemia - basal-bolus insulin DM gastroparesis - prn metoclopramide moderate persistent asthma not in acute exac - continue montelukast, prn albuterol neuropathy - duloxetine mood disorder - clonazepam constipation - bowel regimen VTE ppx - SCDs In my clinical judgment, the patient requires continued inpatient hospitalization for the following reasons: HD placement tenatively secured for MWF at [facility]; if confirmed, d/c home tomorrow p HD Total time managing care of this patient today: 35 minutes. Quality Stroke Does the patient have a stroke diagnosis?: No VTE Prior VTE?: No VTE Risk Level:: Medical - moderate - high VTE Device Contraindication: Treatment Not Indicated VTE Drug Contraindication: N/A - Med Ordered
[2023-09-20 11:18] VITALS: BP 135/62; PULSE 52; RESP 18; TEMP 36.7; O2SAT 97
[2023-09-20 11:24] LABS: Glucose, Whole Blood 190 mg/dL (60-115)
[2023-09-20] MEDS: Insulin Lispro 100 UNIT/ML 3 ML VIAL SUBCUT ×2 (11:25→20:42)
[2023-09-20 16:00] VITALS: BP 124/57; PULSE 53; RESP 18; TEMP 36.4; O2SAT 100
[2023-09-20 16:30] LABS: Glucose, Whole Blood 113 mg/dL (60-115)
[2023-09-20] MEDS: Sevelamer Carbonate Tablet 800 MG TABLET PO (16:53)
[2023-09-20 20:00] VITALS: BP 124/57; PULSE 57; RESP 18; TEMP 36.5; O2SAT 96
[2023-09-20 20:27] LABS: Glucose, Whole Blood 197 mg/dL (60-115)
[2023-09-20] MEDS: clonazePAM 1 MG TABLET PO (20:40)
[2023-09-20] MEDS: Cinacalcet HCl 30 MG TABLET PO (20:41)
[2023-09-20] MEDS: calcitrioL 0.25 MCG CAPSULE PO (20:41)
[2023-09-20] MEDS: traZODone HCL 100 MG TABLET 200 MG PO (20:41)
[2023-09-20] MEDS: Montelukast Sodium 10 MG TABLET PO (20:41)
[2023-09-20] MEDS: Atorvastatin Calcium 40 MG TABLET PO (20:41)
[2023-09-20] MEDS: Insulin Glargine,Hum.rec.anlog 100 UNIT/ML 10 ML VIAL 20 UNIT SUBCUT (20:42)
[2023-09-21] VITALS: BP 132/63; PULSE 52; RESP 18; TEMP 36.8; O2SAT 99
[2023-09-21 03:40] LABS: HBS Num1 0.12 mIU/mL (0-7.99); HBc Num1 0.06 S/CO (0.00-0.79); HBsAGNum1 0.35 S/CO (0.00-0.99); Hepatitis B Core Antibody Nonreactive (Nonreactive); Hepatitis B Surface Antigen Negative (Negative); ~Hepatitis B Surface Antibody NONREACTIVE (Nonreactive)
[2023-09-21 04:00] VITALS: BP 135/71; PULSE 52; RESP 20; TEMP 36.8; O2SAT 99
[2023-09-21] MEDS: Omeprazole 20 MG CAPSULE.DR PO (05:34)
[2023-09-21 07:21] VITALS: BP 114/56; PULSE 54; RESP 18; TEMP 36.2; O2SAT 96
[2023-09-21 07:41] LABS: Glucose, Whole Blood 96 mg/dL (60-115)
[2023-09-21] MEDS: Aspirin Enteric Coated 81 MG TABLET.DR PO (08:46)
[2023-09-21] MEDS: Sodium Bicarbonate 650 MG TABLET PO (08:47)
[2023-09-21] MEDS: clonazePAM 0.5 MG TABLET PO (08:47)
[2023-09-21] MEDS: oxyCODONE HCl Immed Release 5 MG TABLET 10 MG PO (08:47)
[2023-09-21] MEDS: DULoxetine HCl 30 MG CAPSULE.DR PO (08:47)
--- NOTE | 2023-09-21 09:07 | PM.PNNEP ---
Subjective Subjective Date of Service: 09/21/23 Interval history: No new events; Seen on HD; D/W HD RN Physical Exam Vital Signs: Vital Signs: Last Vital Signs Temp 97.1 F 09/21/23 07:21 Pulse 54 09/21/23 07:21 Resp 18 09/21/23 07:21 BP 114/56 L 09/21/23 07:21 Pulse Ox 96 09/21/23 07:21 O2 Del Method Room Air 09/21/23 07:21 BMI result Body Mass Index 47.0 Const: General: comfortable and no acute distress Orientation/consciousness: patient oriented x3 HEENT: Head: Yes normocephalic Mouth: Normal oral and palatal mucosa present Eyes: EOM: EOMs intact bilaterally Neck: Neck: Yes supple Resp: Auscultation: clear to auscultation bilaterally Cardio: Jugular venous distension: no JVD Rate: regular rate GI: Palpation (GI): Soft to palpation Auscultation: normal bowel sounds : General: Yes no CVA tenderness Back/Spine/Pelvis: Back: no CVA tenderness Skin: General skin exam: no rashes or lesions noted Neuro: General: patient oriented x3 Extrem: General: Yes no pedal edema Objective Data Labs 09/11/23 07:02 09/17/23 08:03 Labs: Laboratory Results - last 24 hr 09/20/23 09/20/23 09/20/23 11:13 13:16 16:11 POC Glucose 190 H 113 Hep Bs Antigen Negative Hep Bs Antibody NONREACTIVE Hep B Core Total Ab Nonreactive 09/20/23 09/21/23 20:14 07:17 POC Glucose 197 H 96 Hep Bs Antigen Hep Bs Antibody Hep B Core Total Ab Microbiology Microbiology Results: Microbiology 09/10/23 15:41 Blood - Venous Blood Culture - Final No growth after 5 days. 09/10/23 15:41 Blood - Venous Blood Culture - Final No growth after 5 days. Procedures Date of Service Date of Service: 09/21/23 Assessment & Plan Assessment and plan (1) ESRD needing dialysis: Status: Acute Plan Has ESRD from diabetic nephropathy; Seen on HD this AM Had been getting home hemodialysis in the past and in center recently Had issues with the access and new PermCath was placed by IR Procrit 98633 units subcutaneous once a week Renvela 1600 mg 3 times a day with meals Low potassium, low phosphorus diet with a fluid restriction Has a HD spot for MWF [facility] 2nd shift ( starting from coming Sunday) Can be D/Boris after HD today Progress Note: Quality Stroke Does the patient have a stroke diagnosis?: No
--- NOTE | 2023-09-21 09:51 | P.DS_ITS ---
DS: Providers Provider Date of Service: 09/21/23 Date of admission: 09/10/23 14:44 Date of discharge: 09/21/23 Primary care physician: Nicholas Yang MD Consults: 09/10/23 14:43 Consult to Nephrology Routine Consulting Provider: 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: Status: Acute (4) Adrenal incidentaloma: Status: Acute DS: Summary Hospital Course Hospital Course: From the history and physical by the admitting hospitalist, FELA Knight, 09/09: 43-year-old female with complicated past medical history including uncontrolled type 1 diabetes with ESRD on dialysis, diabetic polyneuropathy, hypertension, hyperlipidemia, mood disorder, coronary artery disease with history of NSTEMI (has appt with [facility] regarding possible CABG on sunday), history of cauda equina syndrome with chronic bilateral lower extremity weakness, diabetic gastroparesi s, moderate persistent asthma, who is morbidly obese with BMI greater than 47 presents to the ED earlier today from the IR department at the recommendation of Dr. Sherman in nephrology. She has not had dialysis in 9 days following disagreement with dialysis clinic. Unfortuntely av fistula in lue unable to be used and has large hematomas at fistula site. She had dialysis catheter replaced in IR. She does also have dialysis machine at home but has been unable to use this. She currently reports feeling fatigue and pain at the incision site. She does make urine and feels very anxious and depressed over her current medical situation and has considered palliative care/hospice. No lightheadedness, nausea, vomiting, confusion, sob, palpitations, chest pain. Since arrival, vital signs are stable. No leukocytosis. Has a stable normocytic anemia with H/H 8.9/26.4%. Creatinine 19.84, BUN 135. Potassium 6.8, CO2 13, anion gap 28. EKG shows sinus bradycardia, rate [address]/T-wave abnormality. No peaked T-waves. In the ED, given 5 units insulin, 1 amp d50, and lokelma. 43yo F with DM1 + polyneuropathy, ESRD on HD, HTN, HLD, mood disorder, CAD with hx NSTEMI, hx cauda equina syndrome with chronic BLE weakness, DM2 gastroparesis, moderate persistent asthma, and morbid obesity. Admitted after inability to access fistula; Permacath placed by IR. Also found to have hyperK. This resolved with Loklema and insulin and with re-initiation of dialysis. HD was continued MWF. Hospitalization was prolonged by difficulty procuring an outpatient HD spot. She was placed at [facility] MWF 2nd shift to start 09/24/23. She was discharged home after HD 09/21/23. 2.8 x 2.3 cm left adrenal nodule most likely representing an adenoma should be worked as an outpatient with adrenal protocol CT and plasma metanephrines, which should be ordered by her PCP. Time Attestation Discharge Coordination Time (in mins): 35 Quality: Safe Use of Opioids Does Pt have an Active Cancer Diagnosis on the Problem List?: No Quality: Stroke Does the patient have a stroke diagnosis?: No Physical Exam Vital Signs: Vital Signs: Last Vital Signs Temp 97.1 F 09/21/23 07:21 Pulse 54 09/21/23 07:21 Resp 18 09/21/23 07:21 BP 114/56 L 09/21/23 07:21 Pulse Ox 96 09/21/23 07:21 O2 Del Method Room Air 09/21/23 07:21 BMI result Body Mass Index 47.0 Gen: in no acute distress HEENT: sclera anicteric, moist mucus membranes Neck: supple, R subclavian tunneled HD catheter Lungs: clear to auscultation bilaterally Heart: regular rate and rhythm, no murmurs Abd: soft, non-tender, non-distended, obese Ext: no edema, LUE fistula clotted Skin: warm/well-perfused Neuro: alert and oriented x3, moving all extremities Psych: appropriate affect DS: Data Data Completed and Pending Completed studies during hospitalization [Text1]: Laboratory Results WBC 4.7 X10*3/uL (4.8-10.8) L 09/11/23 07:02 RBC 2.97 X10*6/uL (4.20-5.50) L 09/11/23 07:02 Hgb 8.6 g/dl (12.0-16.0) L 09/11/23 07:02 Hct 24.3 % (37.0-47.0) L 09/11/23 07:02 MCV 81.8 fL (80.0-98.0) 09/11/23 07:02 MCH 29.0 pg (27.0-33.0) 09/11/23 07:02 MCHC 35.4 g/dl (31.0-35.0) H 09/11/23 07:02 RDW 14.9 % (11.0-16.0) 09/11/23 07:02 Plt Count 215 X10*3/uL (160-400) 09/11/23 07:02 MPV 10.1 fL (9.4-12.3) 09/11/23 07:02 Immature Gran % (Auto) 0.4 % (0.0-0.4) 09/11/23 07:02 Neut % (Auto) 57.0 % (45-73) 09/11/23 07:02 Lymph % (Auto) 27.8 % (20-40) 09/11/23 07:02 [place] % (Auto) 10.8 % (2-11) 09/11/23 07:02 Eos % (Auto) 3.2 % (0-4) 09/11/23 07:02 Baso % (Auto) 0.8 % (0-2) 09/11/23 07:02 Lymph # (Auto) 1.3 X10*3/uL (1.2-4.9) 09/11/23 07:02 [place] # (Auto) 0.5 X10*3/uL (0.1-1.2) 09/11/23 07:02 Eos # (Auto) 0.2 X10*3/uL (0.0-0.4) 09/11/23 07:02 Baso # (Auto) 0.0 X10*3/uL (0.0-0.2) 09/11/23 07:02 Abs Immat Gran (auto) 0.02 X10*3/uL (0.00-0.03) 09/11/23 07:02 Absolute Neuts (auto) 2.7 x10*3/uL (2.0-8.3) 09/11/23 07:02 Absolute Nucleated RBC 0.000 X10*3/uL (0.0-0.012) 09/11/23 07:02 Nucleated RBC % (auto) 0.0 /100WBC (0.0-0.2) 09/11/23 07:02 Hold Purple Top SEE NOTE 09/12/23 06:39 VBG pH 7.30 (7.32-7.43) L 09/10/23 15:56 VBG pCO2 25 mmHg 09/10/23 15:56 VBG pO2 135 mmHg 09/10/23 15:56 VBG HCO3 12 mmol/L (22-26) L 09/10/23 15:56 VBG O2 Saturation 98.0 % 09/10/23 15:56 VBG Base Excess -11.8 mmol/L 09/10/23 15:56 Sodium 134 mmol/L (135-145) L 09/17/23 08:03 Potassium 4.7 mmol/L (3.3-5.1) D 09/17/23 08:03 Chloride 104 mmol/L (96-108) 09/17/23 08:03 Carbon Dioxide 17 mmol/L (22-29) L 09/17/23 08:03 Anion Gap 18 (12-20) 09/17/23 08:03 BUN 33 mg/dL (9-16) H 09/17/23 08:03 Creatinine 9.62 mg/dL (0.5-1.4) H* 09/17/23 08:03 Estim Creat Clear Calc 10.6 09/17/23 08:03 Estimated GFR 4 09/17/23 08:03 POC Glucose 96 mg/dL (60-115) 09/21/23 07:17 Random Glucose 130 mg/dL (60-115) H 09/17/23 08:03 Fasting Glucose 64 mg/dL (60-99) 09/12/23 06:39 Calcium 7.8 mg/dL (8.4-10.2) L D 09/17/23 08:03 Phosphorus 12.0 mg/dL (2.7-4.5) H 09/10/23 13:18 Total Bilirubin 0.4 mg/dL (0.0-1.0) 09/12/23 06:39 AST 11 U/L (5-31) 09/12/23 06:39 ALT 10 U/L (0-31) 09/12/23 06:39 Alkaline Phosphatase 98 U/L (39-117) 09/12/23 06:39 Total Protein 6.1 g/dL (6.5-8.0) L 09/12/23 06:39 Albumin 3.2 g/dL (3.5-5.0) L 09/12/23 06:39 Hep Bs Antigen Negative (Negative) 09/20/23 13:16 Hep Bs Antibody NONREACTIVE (Nonreactive) 09/20/23 13:16 Hep B Core Total Ab Nonreactive (Nonreactive) 09/20/23 13:16 Impressions Abdomen/Pelvis CT 09/11/23 21:25 IMPRESSION: No acute abnormality in the abdomen or pelvis. 2.8 x 2.3 cm left adrenal nodule most likely representing an adenoma. Recommend consideration of laboratory evaluation for possible pheochromocytoma and then subsequent evaluation with Adrenal Protocol CT. Abdomen X-Ray 09/15/23 14:26 IMPRESSION: 1. Nonobstructive bowel gas pattern. 2. Large amount of stool in the colon. Discharge Plan Discharge Anticipated Discharge Date/Time: 09/21/23 09:48 Patient Disposition: Home, Self-Care Discharge Diagnosis: ESRD on HD hyperkalemia adrenal incidentaloma Referrals: Jerry Montenegro MD [Physician] - 1 Week Nicholas Yang MD [Primary Care Provider] - 1 Week Discharge Medications: Continued (DME) insulin syringe-needle U-100 [BD Insulin Syringe Ultra-Fine] 0.3 mL 31 gauge x 5/16 syringe See Rx Instructions .ROUTE .COMPLEX Qty: 100 5RF Dose Instruction: USE 3 TIMES A DAY Rx Instructions: USE 3 TIMES A DAY (DME) Aerochamber MV Spacer See Rx Instructions .ROUTE .MEDSUPPLY Qty: 1 0RF Rx Instructions: As directed (DME) FreeStyle Lite Strips Strip See Rx Instructions .Route Qty: 100 3RF Rx Instructions: Use to check blood sugar 4 times daily, before mealtimes and bedtime. (DME) lancets [FreeStyle Lancets] 28 gauge misc See Rx Instructions .Route Qty: 100 3RF Rx Instructions: Use to check blood sugar 4 times daily, before mealtimes and bedtime. amlodipine 10 mg tablet 10 mg PO DAILY Qty: 90 3RF albuterol sulfate [Ventolin HFA] 90 mcg/actuation HFA aerosol inhaler 2 puff PO Q4H PRN (Reason: for wheezing) 30 Days Qty: 8.5 8RF montelukast 10 mg tablet 10 mg PO BEDTIME Qty: 90 3RF atorvastatin 40 mg tablet 40 mg PO BEDTIME Qty: 90 3RF (DME) FreeStyle Fan 3 [place] Misc See Rx Instructions .Route Qty: 1 0RF Rx Instructions: As directed (DME) FreeStyle Fan 3 Sensor Device See Rx Instructions .Route Qty: 2 11RF Rx Instructions: As directed losartan 100 mg tablet 1 tab PO DAILY trazodone 100 mg tablet 200 mg PO BEDTIME duloxetine 30 mg capsule,delayed release(DR/EC) 30 mg PO DAILY insulin degludec [Tresiba FlexTouch U-200] 200 unit/mL (3 mL) insulin pen 40 unit subcut BEDTIME clonazepam 0.5 mg tablet 1 mg PO BEDTIME calcitriol 0.25 mcg capsule 0.25 mcg PO TUTHSA cinacalcet 30 mg tablet 30 mg PO TUTHSA clonazepam 0.5 mg tablet 0.5 mg PO DAILY (DME) blood-glucose meter [FreeStyle Lite Meter] Kit See Rx Instructions .Route Qty: 1 0RF Rx Instructions: Use to check blood sugar 4 times daily, before mealtimes and bedtime. pantoprazole 40 mg tablet,delayed release (DR/EC) 40 mg PO DAILY aspirin [Adult Low Dose Aspirin] 81 mg tablet,delayed release (DR/EC) 81 mg PO DAILY metoprolol succinate 100 mg tablet extended release 24 hr 100 mg PO DAILY sevelamer carbonate 800 mg tablet 800 mg PO TIDWM PRN (Reason: WITH MEALS) (DME) pen needle, diabetic [BD Ultra-Fine [place] Pen Needle] 32 gauge x 5/32 needle See Rx Instructions .ROUTE .MEDSUPPLY Qty: 125 11RF Rx Instructions: As directed four times a day Discontinued omeprazole 40 mg capsule,delayed release(DR/EC) 40 mg PO QAM Qty: 90 1RF Discharge Orders: Discharge Order (Routine); Ordered 09/21/23 Ordered By: Annmarie Mitchell Diet: Diabetic diet Activity on Discharge: As tolerated Stand Alone Forms: Patient Portal Discharge page Print Language: Slovak Care Plan Goals: kidney health Health Concerns: ESRD on HD hyperkalemia adrenal incidentaloma Plan of Treatment: dialysis at [facility], 2nd shift follow up with your automatic hemmer at dialysis Please follow up with your primary care doctor within 1 week. Return to the hospital if you experience recurrent or worsening symptoms. Outpatient adrenal CT to be ordered by PCP Assessment: See Discharge Summary.
--- NOTE | 2023-09-21 10:31 | MHC.CM.PN ---
Second IMM, pt has been medically cleared for DC. She will go home today after HD, via private transport. She will resume her [employer] services and attend outpt HD.
[2023-09-21 13:40] LABS: Glucose, Whole Blood 116 mg/dL (60-115)
[2023-09-21 14:22] VITALS: BP 96/55; PULSE 64; RESP 17; TEMP 36.7; O2SAT 97
[2023-09-21 15:23] VITALS: BP 127/60; PULSE 64; RESP 18; TEMP 36.6
[2023-09-21 16:04] LABS: Glucose, Whole Blood 141 mg/dL (60-115)
== END 2023-09-21 15:50 | disposition home or self-care (01) | DRG 640 ==
LOC: HO.ED 14:11 → HO.EDOVER 14:50 → HO.IMC 19:43 → HO.S3 09-14 14:29 → HO.IMC 09-14 14:47
PROVIDERS: Hospitalist; Internal Medicine Hypertension Specialist; Admitting Provider Physician Assistant; Emergency Provider Student in an Organized Health Care Education/Training Program; PCP Family Medicine; Visit Provider Family Medicine
DX: E87.5 Hyperkalemia (principal); N18.6 End stage renal disease; Z68.42 Body mass index [BMI] 45.0-49.9, adult; G83.4 Cauda equina syndrome; I12.0 Hypertensive chronic kidney disease with stage 5 chronic kidney disease or end stage renal disease; N17.9 Acute kidney failure, unspecified; T82.898A Other specified complication of vascular prosthetic devices, implants and grafts, initial encounter; E87.21 Acute metabolic acidosis; F39 Unspecified mood [affective] disorder; K21.9 Gastro-esophageal reflux disease without esophagitis; E66.01 Morbid (severe) obesity due to excess calories; E87.6 Hypokalemia; D63.1 Anemia in chronic kidney disease; K59.00 Constipation, unspecified; E10.22 Type 1 diabetes mellitus with diabetic chronic kidney disease; E10.43 Type 1 diabetes mellitus with diabetic autonomic (poly)neuropathy; K31.84 Gastroparesis; E10.42 Type 1 diabetes mellitus with diabetic polyneuropathy; I25.10 Atherosclerotic heart disease of native coronary artery without angina pectoris; Z91.158 Patient's noncompliance with renal dialysis for other reason; J45.40 Moderate persistent asthma, uncomplicated; Z99.2 Dependence on renal dialysis; Z79.82 Long term (current) use of aspirin; Z79.899 Other long term (current) drug therapy
CPT/HCPCS: 36415; 36558; 74018; 74176; 76937; 80048; 80053; 82803; 82947; 84100; 85025; 86704; 86706; 87040; 87340; 90999; 93005; 94640; 94664; 99285; A4364; C1750; C1769; J0613; J0736; J0885; J1644; J2060; J2250; J2270; J2310; J2405; J3010

== ENCOUNTER → 2023-09-10 13:00 | Outpatient (BNV) | payer OTHER, SELFPAY | PROVIDERS: Admitting Provider Physician Assistant; Emergency Provider Student in an Organized Health Care Education/Training Program; PCP Family Medicine; Visit Provider Internal Medicine Cardiovascular Disease | DX: R00.1 Bradycardia, unspecified (principal); N18.6 End stage renal disease | CPT/HCPCS: 93010 ==

== ENCOUNTER → 2023-09-10 14:44 | Outpatient (BNV) | payer OTHER, SELFPAY | PROVIDERS: Admitting Provider Physician Assistant; Emergency Provider Student in an Organized Health Care Education/Training Program; PCP Family Medicine; Visit Provider Internal Medicine Nephrology | DX: E10.22 Type 1 diabetes mellitus with diabetic chronic kidney disease (principal); N18.6 End stage renal disease; Z99.2 Dependence on renal dialysis | CPT/HCPCS: 90935; 99232 ==

== ENCOUNTER → 2023-09-10 14:44 | Outpatient (BNV) | payer OTHER, SELFPAY | PROVIDERS: Admitting Provider Physician Assistant; Emergency Provider Student in an Organized Health Care Education/Training Program; PCP Family Medicine; Visit Provider Physician Assistant | DX: E10.22 Type 1 diabetes mellitus with diabetic chronic kidney disease (principal); N18.6 End stage renal disease; Z99.2 Dependence on renal dialysis; E87.5 Hyperkalemia; E27.8 Other specified disorders of adrenal gland | CPT/HCPCS: 99223; 99232; 99233; 99239 ==

== ENCOUNTER 2023-11-29 13:02 | Outpatient (AMB) | payer OTHER, SELFPAY ==
--- NOTE | 2023-11-29 13:04 | A.OFFPC_ITS ---
Vital Signs 11/29/23 13:07 Height 5 ft 6 in Weight 267 lb 6 oz BMI 43.2 BP 126/70 Blood Pressure Location Rt brachial Position Sitting Respiration 14 Pulse 68 Pulse Source Pulse Oximeter Temp 97.4 F Temp Source Temporal Artery Scan Pulse Oximetry (%) 96 Oxygen Delivery Method Room Air Intake Visit Reasons: follow up pain Equip Maint Eng Required: No Accompanied by: Family/Other Allergies Penicillins Allergy (Intermediate, Verified 09/10/23 12:55) compromises mental health Medication List - Last Reconciled 11/29/23 by Nicholas Yang MD albuterol sulfate 90 mcg/actuation (Ventolin HFA) 2 puffs PO Q4H PRN 1 month atorvastatin 80 mg PO DAILY blood sugar diagnostic (FreeStyle Lite Strips) Use to check blood sugar 4 times daily, before mealtimes and bedtime. blood-glucose meter (FreeStyle Lite Meter kit) Use to check blood sugar 4 times daily, before mealtimes and bedtime. blood-glucose meter,continuous (FreeStyle Fan 3 [place]) As directed blood-glucose sensor (FreeStyle Fan 3 Sensor device) As directed calcitriol 0.25 mcg PO TUTHSA clonazepam 0.5 mg PO TID inhalational spacing device (Aerochamber MV spacer) As directed insulin degludec (Tresiba FlexTouch U-200 insulin) 20 units subcut BEDTIME insulin syringe-needle U-100 (BD Insulin Syringe Ultra-Fine) USE 3 TIMES A DAY lancets (FreeStyle Lancets) Use to check blood sugar 4 times daily, before mealtimes and bedtime. losartan 1 tab PO DAILY montelukast 10 mg PO BEDTIME pen needle, diabetic (BD Ultra-Fine Esperanza Pen Needle) As directed four times a day sevelamer carbonate 800 mg PO TIDWM PRN Tobacco use date assessed: 11/29/23 Dental Screening Dental Screen Date: 07/25/23 HPI follow up pain HPI Details 43 y/o female presents today to f/u pain . Had?referred?patient?to[facility]. She states she has an appt. on 12/07/23. Had?referred?patient?to?[facility] Had?referred?patient?to [facility] - saw??Lan?in?September. Patient?is?on?dialysis. Off all BP meds. Had?referred?patient?to?infectious?disease Had?referred?patient?to?Neurology - has?appointment?in?February Had?referred?patient?to?pain?management - was?unable?to?make?the?appointment?when?pain?management?reached?out?due?to?patie nt?being?in?hospital Had?ordered?lab?work A1c today 11/29/23 6.3%. She reports she had changed her diet significantly. She has dropped her insulin Tresiba from 40 units to 20 units per day. She notes her continuous glucose monitor has been helping significantly. Pt reports her hands have been getting cold at home and is concerned about this. She reports she is currently not on anything for chronic pain. 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 ESRD needing dialysis NSTEMI (non-ST elevated myocardial infarction) MDD (major depressive disorder) Hyperlipidemia due to type 1 diabetes mellitus Diabetic retinopathy Cauda equina syndrome Anasarca associated with disorder of kidney DM gastroparesis Abnormal abdominal MRI Hearing loss in right ear Hearing loss in left ear RSV infection Hypertensive urgency Diabetes mellitus type 1, uncontrolled Gastroparesis Moderate persistent asthma, uncomplicated Chronic GERD Cyclic vomiting syndrome Surgical History AVF (arteriovenous fistula) Previous back surgery Family History Father Diabetes Paternal Grandfather Diabetes Mother No known problems Social History Housing: Apartment Alcohol intake: unknown Patient Tobacco Use Status: Former Tobacco user e-Cigarette/Vaping Use: Never Used Second Hand Smoke Exposure: No Substance Use Type: Marijuana Advance Directives Date on File: 08/31/22 service: No Current occupational status: disabled Current occupational exposures/hazards: No Cognitive needs: No Hearing needs: No Vision needs: No Questionnaire Thrive Questionnaire Date Thrive assessed: 09/11/23 TERRY-7 AMB Questionnaire TERRY-7 Date TERRY - 7 assessed: 07/25/23 Source: Developed by Drs. Channing Funes, Tenisha Foley, Mohan Fagan and colleagues, with an educational francis from [employer]. Review of Systems Const Denies chills, Denies fatigue, Denies fever(s), Denies headache(s) and Denies weakness ENT Denies dizziness and Denies headache(s) Card Denies dyspnea Resp Denies cough, Denies dyspnea, Denies wheezing and Denies other (shortness of breath) Musc Details: L3-L4 back pain Bilateral foot/ankle pain Denies numbness and Denies tingling Neuro Denies dizziness, Denies headache(s), Denies numbness, Denies tingling and Denies weakness Psych Denies anxiety and Denies depression Endo Denies fatigue Aller/Immun Denies wheezing Physical exam (Primary Care) Vital Signs: Last Vital Signs Temp 97.4 F 11/29/23 13:07 Pulse 68 11/29/23 13:07 Resp 14 11/29/23 13:07 BP 126/70 11/29/23 13:07 Pulse Ox 96 11/29/23 13:07 Oxygen Delivery Method Room Air 11/29/23 13:07 BMI result Body Mass Index 43.2 Tobacco/Smoking Status: Tobacco use Status Tobacco use date assessed 11/29/23 11/29/23 13:21 Patient Tobacco Use Status Former Tobacco user 11/29/23 13:21 e-Cigarette/Vaping Use Never Used 11/29/23 13:21 Thrive Assessment: Date of Thrive Assessment Date Thrive assessed 09/11/23 11/29/23 13:21 Const General: well developed; No acute distress Nutritional Appearance: well nourished Orientation/consciousness: patient oriented x3 [facility] Head: Yes normocephalic and Yes atraumatic Eyes General: appearance normal, both eyes and all related structures Pupils: Equal, round and reactive pupils present EOM: EOMs intact bilaterally Resp Effort & Inspection: normal respiratory effort Neuro General: patient oriented x3 and No gait normal Cranial nerves: Yes Equal, round and reactive pupils present Gait exam (Neuro): gait abnormal and Assisted gait required Gait assisted method: walker Extrem Other: Bilateral foot/ankle pain Psych Affect: normal affect Results AMB Hemoglobin A1c AMB Hemoglobin A1c 6.3 % Last Edit by Kim Morrow CMA on 11/29/23 13:37 Assessment and Plan Assessment & Plan (1) Chronic pain: Code(s): G89.29 - Other chronic pain Qualifiers: Chronic pain type: chronic pain syndrome Qualified Code(s): G89.4 - Chronic pain syndrome Plan: Chronic?pain?at?L3- L4?level?of?back?starting?in?center?at?location?of?her?surgery?and?radiating?lat erally Also?has?pain?at?bilateral?feet?and?ankles She?had?been?on?high-doses?of?op iates?and?is?off?these.??She?does?not?want?to?resume?medications?such?as?this. Avoiding?NSAIDs?due?to Renal?function?however She?can?use?Tylenol?and?we?can?consider?adjunct?medications?such?as?gabape ntin/Lyrica?in?careful?doses?as?well?as?Cymbalta.??For?now?however?patient?does? not?want?to?use?any?oral?medications?so?will?give?her?a?script?for?diclofenac?ge l.?? We?discussed?that?if?she?is?unable? to?get?diclofenac?she?could?consider?Aspercreme?with?lidocaine.??[place]?with?gentle?heat. She?was?referred?to?pain?management?but?was?in?the?hospital?when?they?were?tryin g?to?reach?her.??Ga ve?her?the?phone?number?she?will?try?to?set?up?an?appointment. 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 Follow-up?as?recommended She?did?not?have?a?refill?of?her?NovoLog,?fast?acting?insulin?so?I?sent?script?w ith?sliding?scale. (4) CAD (coronary artery disease): Code(s): I25.10 - Atherosclerotic heart disease of [place] coronary artery without angina pectoris Plan: Referred?to[facility]?and?she?has?an?appointment (5) NSTEMI (non-ST elevated myocardial infarction): Code(s): I21.4 - Non-ST elevation (NSTEMI) myocardial infarction Plan: As?above (6) Lower extremity weakness: Code(s): R29.898 - Other symptoms and signs involving the musculoskeletal system Plan: Lower?extremity?weakness?and?bilateral?ankle?pain.??Patient?is?walking?with?a?wa lker. Increased?fall?risk?due?to?these.??Start?physical?therapy (7) Bilateral ankle pain: Code(s): M25.571 - Pain in right ankle and joints of right foot; M25.572 - Pain in left ankle and joints of left foot Plan: As?above Orders: Orders AMB Hemoglobin A1c Today Z13.9 - Encounter for screening, unspecified PT Evaluation and Treatment Today M25.571 - Pain in right ankle and joints of right foot, M25.572 - Pain in left ankle and joints of left foot, R29.898 - Other symptoms and signs involving the musculoskeletal system Medications: New insulin aspart U-100 (Novolog FlexPen U-100 Insulin aspart) 180-200 2U, 201-251 4U, 252-302 6U, 303-353 8U, 354-404 10 U, 405-455 12U and call PCP 1 sliding scale dose subcut USEASDIRECTD 30 days 15 mL 2RF E10.22 - Type 1 diabetes mellitus with diabetic chronic kidney disease, N18.6 - End stage renal disease, Z99.2 - Dependence on renal dialysis diclofenac sodium 1% apply to single knee, ankle, foot; for foot includes sole/toes/top of foot 4 grams topical QID 30 days 200 grams 2RF Coding Level of Care Code Est Pt Level 4 (51518) Diagnoses Chronic pain syndrome G89.4 Chronic pain type: chronic pain syndrome ESRD needing dialysis N18.6; Z99.2 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 on chronic dialysis E10.22; N18.6; Z99.2 Chronic kidney disease stage: on chronic dialysis CAD (coronary artery disease) I25.10 NSTEMI (non-ST elevated myocardial infarction) I21.4 Lower extremity weakness R29.898 Bilateral ankle pain M25.571; M25.572
[2023-11-29 13:07] VITALS: BP 126/70; PULSE 68; RESP 14; TEMP 36.3; O2SAT 96; BMI 43.2
== END 2023-11-29 14:01 | disposition home or self-care (01) ==
PROVIDERS: PCP Family Medicine; Visit Provider Family Medicine
DX: E10.22 Type 1 diabetes mellitus with diabetic chronic kidney disease (principal); N18.6 End stage renal disease; Z99.2 Dependence on renal dialysis; I25.2 Old myocardial infarction; G89.4 Chronic pain syndrome; I25.10 Atherosclerotic heart disease of native coronary artery without angina pectoris; R29.898 Other symptoms and signs involving the musculoskeletal system; M25.571 Pain in right ankle and joints of right foot; M25.572 Pain in left ankle and joints of left foot
CPT/HCPCS: 83036; 99214

== ENCOUNTER → 2023-12-10 | Outpatient (BNV) | payer OTHER, SELFPAY | PROVIDERS: PCP Family Medicine; Visit Provider Internal Medicine Nephrology | DX: N18.6 End stage renal disease (principal) | CPT/HCPCS: 90960; 90961 ==

== ENCOUNTER 2024-03-04 09:16 | Outpatient (AMB) | payer OTHER, SELFPAY ==
--- NOTE | 2024-03-04 09:41 | MHC.PC.OV ---
Vital Signs 03/04/24 09:48 Height 5 ft 6 in Weight 252 lb 3 oz BMI 40.7 BP 110/50 L Blood Pressure Location Rt brachial Position Sitting Respiration 16 Pulse 91 Pulse Source Pulse Oximeter Temp 97.9 F Temp Source Tympanic Pulse Oximetry (%) 95 Oxygen Delivery Method Room Air Intake Visit Reasons: f/u chronic conditions Intake Note: f/u chronic conditions Allergies Penicillins Allergy (Intermediate, Verified 03/04/24 09:47) compromises mental health Medication List - Last Reconciled 03/04/24 by Nicholas Yang MD albuterol sulfate 90 mcg/actuation (Ventolin HFA) 2 puffs PO Q4H PRN 1 month atorvastatin 80 mg PO DAILY blood sugar diagnostic (FreeStyle Lite Strips) Use to check blood sugar 4 times daily, before mealtimes and bedtime. blood-glucose meter (FreeStyle Lite Meter kit) Use to check blood sugar 4 times daily, before mealtimes and bedtime. blood-glucose meter,continuous (FreeStyle Fan 3 [place]) As directed blood-glucose sensor (FreeStyle Fan 3 Sensor device) As directed calcitriol 0.25 mcg PO TUTHSA clonazepam 0.5 mg PO TID PRN 30 days diclofenac sodium 1% 4 grams topical QID 30 days inhalational spacing device (Aerochamber MV spacer) As directed insulin aspart U-100 (Novolog FlexPen U-100 Insulin aspart) 1 sliding scale dose subcut USEASDIRECTD 30 days insulin degludec (Tresiba FlexTouch U-200 insulin) 20 units (0.1 mL) subcut BEDTIME 30 days insulin syringe-needle U-100 (BD Insulin Syringe Ultra-Fine) USE 3 TIMES A DAY lancets (FreeStyle Lancets) Use to check blood sugar 4 times daily, before mealtimes and bedtime. losartan 1 tab PO DAILY montelukast 10 mg PO BEDTIME pen needle, diabetic (BD Ultra-Fine Esperanza Pen Needle) As directed four times a day sevelamer carbonate 800 mg PO TIDWM PRN Tobacco use date assessed: 11/29/23 Dental Screening Dental Screen Date: 07/25/23 HPI f/u chronic conditions HPI Details 50 y/o female presents to f/u chronic conditions. Has chronic pain at L3-L4 level of back, starting in center at location of her surgery and radiating laterally. Also has pain at bilateral feet/ankles. ESRD and followed by [facility]. Hx of type 1 diabetes with CKD. Has a soon appt. with Neurology. She has an appt. with Cardiology in March. 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 Autism Coronary artery disease Uncontrolled diabetes mellitus with hyperglycemia, with long-term current use of insulin Adrenal incidentaloma ESRD needing dialysis NSTEMI (non-ST elevated myocardial infarction) MDD (major depressive disorder) Hyperlipidemia due to type 1 diabetes mellitus Diabetic retinopathy Cauda equina syndrome Anasarca associated with disorder of kidney DM gastroparesis Abnormal abdominal MRI Hearing loss in right ear Hearing loss in left ear RSV infection Hypertensive urgency Diabetes mellitus type 1, uncontrolled Gastroparesis Moderate persistent asthma, uncomplicated Chronic GERD Cyclic vomiting syndrome Surgical History AVF (arteriovenous fistula) Previous back surgery Family History Father Diabetes Paternal Grandfather Diabetes Mother No known problems Social History Housing: Apartment Alcohol intake: unknown Patient Tobacco Use Status: Former Tobacco user e-Cigarette/Vaping Use: Never Used Second Hand Smoke Exposure: No Substance Use Type: Marijuana Advance Directives Date on File: 08/31/22 service: No Current occupational status: disabled Current occupational exposures/hazards: No Cognitive needs: No Hearing needs: No Vision needs: No Questionnaire Thrive Questionnaire Date Thrive assessed: 09/11/23 TERRY-7 AMB Questionnaire TERRY-7 Date TERRY - 7 assessed: 07/25/23 Source: Developed by Drs. Channing Funes, Tenisha Foley, Mohan Fagan and colleagues, with an educational francis from [employer]. Review of Systems Const Denies chills, Denies fatigue, Denies fever(s), Denies headache(s) and Denies weakness ENT Denies dizziness and Denies headache(s) Card Denies dyspnea Resp Denies cough, Denies dyspnea, Denies wheezing and Denies other (shortness of breath) Musc Denies numbness and Denies tingling Neuro Denies dizziness, Denies headache(s), Denies numbness, Denies tingling and Denies weakness Psych Denies anxiety and Denies depression Endo Denies fatigue Aller/Immun Denies wheezing Physical exam (Primary Care) Vital Signs: Last Vital Signs Temp 97.9 F 03/04/24 09:48 Pulse 91 03/04/24 09:48 Resp 16 03/04/24 09:48 BP 110/50 L 03/04/24 09:48 Pulse Ox 95 03/04/24 09:48 Oxygen Delivery Method Room Air 03/04/24 09:48 BMI result Body Mass Index 40.7 Tobacco/Smoking Status: Tobacco use Status Tobacco use date assessed 11/29/23 03/04/24 09:43 Patient Tobacco Use Status Former Tobacco user 03/04/24 09:43 e-Cigarette/Vaping Use Never Used 03/04/24 09:43 Thrive Assessment: Date of Thrive Assessment Date Thrive assessed 09/11/23 03/04/24 09:43 Const General: well developed; No acute distress Nutritional Appearance: well nourished and obese morbidly obese Orientation/consciousness: patient oriented x3 [facility] Head: Yes normocephalic and Yes atraumatic Eyes General: appearance normal, both eyes and all related structures Pupils: Equal, round and reactive pupils present EOM: EOMs intact bilaterally Resp Effort & Inspection: normal respiratory effort Auscultation: clear to auscultation bilaterally Cardio Rate: regular rate Rhythm: regular rhythm Heart sounds: S1 normal heart sound present, S2 normal heart sound present, no gallops, no murmurs and no rubs Neuro General: patient oriented x3 and gait normal Cranial nerves: Yes Equal, round and reactive pupils present Psych Affect: normal affect Assessment and Plan Assessment & Plan (1) Chronic pain: Code(s): G89.29 - Other chronic pain Qualifiers: Chronic pain type: chronic pain syndrome Qualified Code(s): G89.4 - Chronic pain syndrome Plan: Currently?controlled.??She?is?using?topicals?as?she?does?not?want?to?use?any?opioid?medications?and?can?not?take?NSAIDs?due?to?renal?function/dialysis. Continue?topical?medication?as?well?as?ice/heat Encouraged?exercise?as?tolerated She?has?an?appointment?with?Neurology?tomorrow. (2) ESRD needing dialysis: Code(s): N18.6 - End stage renal disease; Z99.2 - Dependence on renal dialysis Plan: Currently?stable?on?dialysis. 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 ?This?was?decreased?significantly?due?to?low?blood?sugars?at?night?and?in?the?morning. A1c?now?8.5?which?is?too?high?but?patient?has?a?Fan?continuous?glucose?monitor?and?her?daytime/prandial?insulin?was?increased. She?is?currently?making?adjustments?to?deal?with?her?high?blood?sugars?during?the?day. No?medication?changes?made?by?me?today.??Follow-up?with?endocrinology. (4) NSTEMI (non-ST elevated myocardial infarction): Code(s): I21.4 - Non-ST elevation (NSTEMI) myocardial infarction Plan: Patient?has?upcoming?appointment?with?cardiology?in?March. 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
[2024-03-04 09:48] VITALS: BP 110/50; PULSE 91; RESP 16; TEMP 36.6; O2SAT 95; BMI 40.7
== END 2024-03-04 10:29 | disposition home or self-care (01) ==
PROVIDERS: PCP Family Medicine; Visit Provider Family Medicine
DX: E10.22 Type 1 diabetes mellitus with diabetic chronic kidney disease (principal); N18.6 End stage renal disease; Z99.2 Dependence on renal dialysis; I21.4 Non-ST elevation (NSTEMI) myocardial infarction; G89.4 Chronic pain syndrome; I25.10 Atherosclerotic heart disease of native coronary artery without angina pectoris

== ENCOUNTER → 2024-03-04 09:16 | Outpatient (BNVA) | payer OTHER, SELFPAY | PROVIDERS: PCP Family Medicine; Visit Provider Family Medicine | DX: E10.22 Type 1 diabetes mellitus with diabetic chronic kidney disease (principal); N18.6 End stage renal disease; G89.4 Chronic pain syndrome; I21.4 Non-ST elevation (NSTEMI) myocardial infarction; I25.10 Atherosclerotic heart disease of native coronary artery without angina pectoris; Z99.2 Dependence on renal dialysis | CPT/HCPCS: 99212 ==

== ENCOUNTER 2024-03-05 10:08 | Outpatient (AMB) | payer OTHER, SELFPAY ==
--- NOTE | 2024-03-05 10:28 | MHC.OFFVIS ---
Vital Signs 03/05/24 10:29 Height 5 ft 6 in Weight 252 lb BMI 40.7 Intake Visit Reasons: INP-Polyneuropathy, unspecified Intake Note: Patient presents for polyneuropathy. patient here for recurring partiial paralysis on right leg. Allergies Penicillins Allergy (Intermediate, Verified 03/05/24 10:32) compromises mental health Medication List - Last Reconciled 03/05/24 by MERLYN Mark albuterol sulfate 90 mcg/actuation (Ventolin HFA) 2 puffs PO Q4H PRN 1 month atorvastatin 80 mg PO DAILY blood sugar diagnostic (FreeStyle Lite Strips) Use to check blood sugar 4 times daily, before mealtimes and bedtime. blood-glucose meter (FreeStyle Lite Meter kit) Use to check blood sugar 4 times daily, before mealtimes and bedtime. blood-glucose meter,continuous (FreeStyle Fan 3 [place]) As directed blood-glucose sensor (FreeStyle Fan 3 Sensor device) As directed calcitriol 0.25 mcg PO TUTHSA clonazepam 0.5 mg PO TID PRN 30 days diclofenac sodium 1% 4 grams topical QID 30 days inhalational spacing device (Aerochamber MV spacer) As directed insulin aspart U-100 (Novolog FlexPen U-100 Insulin aspart) 1 sliding scale dose subcut USEASDIRECTD 30 days insulin degludec (Tresiba FlexTouch U-200 insulin) 20 units (0.1 mL) subcut BEDTIME 30 days insulin syringe-needle U-100 (BD Insulin Syringe Ultra-Fine) USE 3 TIMES A DAY lancets (FreeStyle Lancets) Use to check blood sugar 4 times daily, before mealtimes and bedtime. montelukast 10 mg PO BEDTIME pen needle, diabetic (BD Ultra-Fine Esperanza Pen Needle) As directed four times a day sevelamer carbonate 800 mg PO TIDWM PRN HPI Comments Details: 43-yr-old female presents for neurological evaluation of RLE weakness. Pt does have a complicated past medical history including uncontrolled type 1 diabetes with ESRD on dialysis- last HgA1C 6.3%, diabetic polyneuropathy, hypertension, hyperlipidemia, mood disorder, CAD with history of NSTEMI, h/o cauda equina syndrome with chronic bilateral lower extremity weakness, diabetic gastroparesis, moderate persistent asthma, obesity. Pt reports she has chronic degenerative spinal disease. Notes, September 2023 abd XR showed degenerative changes in the hips. She reports she has had low back pain her entire life, which she attributed to her weight. She has always prone to joint dislocations. She reports in 2004, she had increased low back pain, hip pain, loss of B&B retention, and BLE became paralyzed, lower body numbness- could not feel being catheterized, which led to a lumbar L4-L5 discetomy in 2004 in [facility], which required rehab x's 2 months (in [place]) to re-learn how to walk, regain B&B control, and sensation returned but never back to baseline. Thereafter, she did continue to low back pain but this worsened and developed hip pain again w/ urinary/bowel retention, and thus underwent lumbar L3-L4 laminectomy/discectomy in 2011 at [facility]. She states this recovery was easier than in 2004. She was able to walk the following day after that surgery. From there, she states she was able to walk with walker to cane then back to not using any assertive device at all, was still needing enemas/bowel regimen for constipation management, and using OTC analgesics for back pain prn. Then last September 2022, she woke up one day, with RLE weakness w/ a leg . She had hospital eval. Work-up was concerning for osteomyelitis, however biopsy was negative and was dx'd w/ advanced degenerative disc disease. Since, she has been in and out of the hospital r/t complications from ESRD on HD and cardiac dz- had NSTEMI in Jul 2023 d/t type I diabetes and pt believes h/o high dose lithium use as a teenager (feels was mis-diagnosed as having bipolar type II). She states she continues to have RLE weakness. She does note a lateral distal thigh lump in the skin. She is feeling more BLE pain- occasionally sharp especially when 1st putting her feet on the floor, and aching throughout the day. From the soles of her Right foot w/ exception of 1st toe, can feel the temperature and the floor. States sensation is hypersensitive to light touch, clipping toenails, the seem of her socks. She is now taking phosphorous binder which is helping w/ her BM. She has no sensation to have BM other than a low back pain sensation. Trying to eat more high fiber vegetables. Uses doclofenac gel prn which helps. Has tried Gabapentin in the past- ineffective and not well-tolerated. She does endorse R > L distal swelling, some discoloration- patchy at times, She denies skin ulcers. She does endorse always being hyperflexible. She always been able to touch the ground w/ flat hands, could do the splits, double jointed fingers. Could never hyperextend her elbows. 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 Autism Coronary artery disease Uncontrolled diabetes mellitus with hyperglycemia, with long-term current use of insulin Adrenal incidentaloma ESRD needing dialysis NSTEMI (non-ST elevated myocardial infarction) MDD (major depressive disorder) Hyperlipidemia due to type 1 diabetes mellitus Diabetic retinopathy Cauda equina syndrome Anasarca associated with disorder of kidney DM gastroparesis Abnormal abdominal MRI Hearing loss in right ear Hearing loss in left ear RSV infection Hypertensive urgency Diabetes mellitus type 1, uncontrolled Gastroparesis Moderate persistent asthma, uncomplicated Chronic GERD Cyclic vomiting syndrome Surgical History AVF (arteriovenous fistula) Previous back surgery Family History Father Diabetes Paternal Grandfather Diabetes Mother No known problems Social History Housing: Apartment Alcohol intake: unknown Patient Tobacco Use Status: Former Tobacco user e-Cigarette/Vaping Use: Never Used Second Hand Smoke Exposure: No Substance Use Type: Marijuana Advance Directives Date on File: 08/31/22 service: No Current occupational status: disabled Current occupational exposures/hazards: No Cognitive needs: No Hearing needs: No Vision needs: No Physical Exam Vital Signs: BMI result Body Mass Index 40.7 Const General: cooperative and no acute distress Orientation/consciousness: patient oriented x3 HEENT Head: Yes normocephalic Resp Effort & Inspection: normal respiratory effort and able to speak in complete sentences Neuro Other: Edentulous Slightly slurred speech- pt attributes to being edentulous Mild let lower facial weakness when talking, decreased left cheek puff compared to right. RLE: MS- decreased hip flexor MS 5-/5 decreased forefoot strength, decreased ROM, eversion weakness, increased sharp sensitivity, proprioception intact, light touch decreased, ankle tight, vibration absent but could feel coldness of tuning fork. LLE- MS 5/5. increased sharp touch sensitivity, mild decreased distal light touch perception, vibration sensation slightly decreased. Gait- very slow to stand, needs to hold onto counter to walk, minimally lifts LLE, RLE drags, short steps General: patient oriented x3 and CN's II-XI intact bilaterally Deep tendon reflexes (DTR's): Right triceps reflex intensity grade: 2+, Left triceps reflex intensity grade: 2+, Rt Biceps (C5, C6): 3+, Left biceps reflex intensity grade: 3+, Right brachioradialis reflex intensity grade: 2+, Left brachioradialis reflex intensity grade: 2+, Right patellar reflex intensity grade: 0 and Left patellar reflex intensity grade: 0 Psych Appearance: grossly normal Mental Status: mental status grossly normal Affect: normal affect Attitude: cooperative Thought content: Normal thought content present Results Reviewed Results Reviewed: Patient:Becka Leach D.O.B:?1980 Sex:?Female Phone:?[phone] [facility] MRN:?[id number] Exam Date:?08/29/2022 EXAMINATION: MR LUMBAR SPINE WITHOUT CONTRAST CLINICAL INFORMATION: Anesthesia of skin. COMPARISON: None TECHNIQUE: MRI of the lumbar spine was obtained using routine sequences without contrast. FINDINGS: The lumbar vertebral bodies maintain normal heights and alignment. There is mild to moderate disc height loss at L3-L4 with associated disc desiccation. There is moderate disc height loss at L4-L5 with significant endplate edema. A mild amount of paravertebral edema is seen centered at the L4-L5 level also involving the medial aspect of the left more than right psoas muscle. There is no evidence of collection. The distal spinal cord appears normal. The conus medullaris terminates normally at L1. The extraspinal soft tissues are within normal limits. SPINAL LEVELS: L1-L2: No posterior disc abnormality. No spinal canal or neural foraminal stenosis. L2-L3: No posterior disc abnormality. No spinal canal or neural foraminal stenosis. L3-L4: Disc bulging with broad-based central protrusion resulting in mild to moderate spinal canal stenosis with narrowing of the subarticular zones and compression of the traversing right more than left L4 nerve roots. Mild to moderate right and mild left neural foraminal stenosis. L4-L5: Disc bulging with central protrusion moderate facet arthropathy resulting in mild spinal canal stenosis with right more than left subarticular stenosis. Mild to moderate right and mild left neural foraminal stenosis. L5-S1: Bulging with shallow central protrusion. No spinal canal or neural foraminal stenosis. IMPRESSION: At L4-L5 there is disc height loss with robust edema about the endplates with some paravertebral and medial psoas muscle edema/inflammation. Although these findings could be degenerative, early discitis osteomyelitis could have a similar appearance. Consider clinical evaluation. Spondylotic change results in right more than left subarticular stenosis and mild to moderate right and mild left neural foraminal stenosis. At L3-L4 there is mild to moderate spinal canal stenosis with compression of the traversing right more than left L4 nerve roots. Mild to moderate right and mild left neural foraminal stenosis. Electronically reviewed and signed by: Dot Dempsey Electronically Signed: Aug 29, 2022 16:58 Assessment & Plan Assessment & Plan (1) Lower extremity weakness: Code(s): R29.898 - Other symptoms and signs involving the musculoskeletal system Category: Medical (2) Spinal stenosis of lumbar region: Code(s): M48.061 - Spinal stenosis, lumbar region without neurogenic claudication Category: Medical (3) Gait difficulty: Code(s): R26.9 - Unspecified abnormalities of gait and mobility Category: Medical (4) Neuropathic pain of both legs: Code(s): G57.93 - Unspecified mononeuropathy of bilateral lower limbs Category: Medical Plan 2022 L-spine MRI reviewed. Pt is advised to undergo: BLE EMG/NCS PT eval & tx- for gait, strengthening, ROM, also to eval for RLE orthotic. If pt has not had a bone density scan, this should be considered. Will reach out to PCP to confirm. Upon review, consider referal to neurospine clinci. Pt seen in c/w Dr Laure Magaña. Will follow-up upon review of above and patient to follow-up in clinic in 6 months or sooner prn. Orders: Orders PT Evaluation and Treatment Today G57.93 - Unspecified mononeuropathy of bilateral lower limbs, M48.061 - Spinal stenosis, lumbar region without neurogenic claudication, R26.9 - Unspecified abnormalities of gait and mobility, R29.898 - Other symptoms and signs involving the musculoskeletal system NE electromyogram (EMG) Today G57.93 - Unspecified mononeuropathy of bilateral lower limbs, M48.061 - Spinal stenosis, lumbar region without neurogenic claudication, R26.9 - Unspecified abnormalities of gait and mobility NE nerve conduction velocity Today G57.93 - Unspecified mononeuropathy of bilateral lower limbs, M48.061 - Spinal stenosis, lumbar region without neurogenic claudication, R26.9 - Unspecified abnormalities of gait and mobility Scribe Plan - Not visible on output: Patient seen in collaboration with Dr. Magaña. Coding Level of Care Code New Pt Level 4 (14418) Diagnoses Lower extremity weakness R29.898 Spinal stenosis of lumbar region M48.061 Gait difficulty R26.9 Neuropathic pain of both legs G57.93
[2024-03-05 10:29] VITALS: BMI 40.7
== END 2024-03-05 11:40 | disposition home or self-care (01) ==
PROVIDERS: PCP Family Medicine; Visit Provider Nurse Practitioner Family
DX: R29.898 Other symptoms and signs involving the musculoskeletal system (principal); M48.061 Spinal stenosis, lumbar region without neurogenic claudication; R26.9 Unspecified abnormalities of gait and mobility; G57.93 Unspecified mononeuropathy of bilateral lower limbs
CPT/HCPCS: 99204

== ENCOUNTER → 2024-03-05 10:08 | Outpatient (BNVA) | payer OTHER, SELFPAY | PROVIDERS: PCP Family Medicine; Visit Provider Nurse Practitioner Family | DX: R29.898 Other symptoms and signs involving the musculoskeletal system (principal); R26.9 Unspecified abnormalities of gait and mobility; G57.93 Unspecified mononeuropathy of bilateral lower limbs; M48.061 Spinal stenosis, lumbar region without neurogenic claudication | CPT/HCPCS: 99202 ==

== ENCOUNTER 2024-04-03 15:13 | Outpatient (REF) | payer OTHER, SELFPAY ==
--- NOTE | 2024-04-03 15:15 | EMG_ITS ---
Chief complaint: History of type 1 diabetes, ESRD on HD, cauda equina with chronic lower extremity weakness, 2 lumbar surgeries. Two years ago, started having even more weakness on right lower extremity. Per patient, this weakness has been stable for the last 2 years and not progressive. She has chronic numbness in both legs, since the 1st time she had cauda equina. Reason for referral: Evaluate for neuropathy versus radiculopathy Referred by: Margarita Rutledge SENIOR FIELD SERVICE ENGINEER Procedure done: Bilateral lower extremity NCS/EMG Precautions and/or limitations: See below Nerve Conduction Studies Anti Sensory Summary Table ?Stim Site NR Onset (ms) Norm Onset (ms) Peak (ms) Norm Peak (ms) O-P Amp (?V) Norm O-P Amp Site1 Site2 Delta-0 (ms) Dist (cm) Owen (m/s) Norm Owen (m/s) Right Radial Anti Sensory (Thumb) Forearm ? 1.8 2.3 <3.1 29.2 Forearm Thumb 1.8 0.0 Left Sural Anti Sensory (Lat Mall) Calf ? 3.5 4.3 <4.0 8.5 >5.0 Calf Lat Mall 3.5 14.0 40 Right Sural Anti Sensory (Lat Mall) Calf NR <4.0 >5.0 Calf Lat Mall 14.0 Motor Summary Table ?Stim Site NR Onset (ms) Norm Onset (ms) O-P Amp (mV) Norm O-P Amp iAmp (mV) Amp (1st) (%) Site1 Site2 Delta-0 (ms) Dist (cm) Owen (m/s) Norm Owen (m/s) Right Peroneal Motor (Ext Dig Brev) Ankle NR <4.0 >2.5 Ankle Ext Dig Brev 0.0 B Fib NR B Fib Ankle 0.0 >40 Poplt NR Poplt B Fib 0.0 >40 Left Tibial Motor (Abd Hampton Brev) Ankle NR <5 >2.5 Ankle Abd Hampton Brev 0.0 Knee NR Knee Ankle 0.0 >40 Right Tibial Motor (Abd Hampton Brev) Ankle NR <5 >2.5 Ankle Abd Hampton Brev 0.0 Knee NR Knee Ankle 0.0 >40 EMG ?Side Muscle Nerve Root Ins Act Fibs Psw Amp Dur Poly Recrt Int Pat Comment Right AntTibialis Dp Br Peron L4-5 Nml Nml Nml Nml Nml 0 Nml Complete Right MedGastroc Tibial S1-2 Nml Nml Nml Nml Nml 0 Nml Complete Right VastusMed Femoral L2-4 Nml Nml Nml Nml Nml 0 Nml Complete Left VastusMed Femoral L2-4 Nml Nml Nml Nml Nml 0 Nml Complete FINDINGS: Left sural showed prolonged peak latencies and small amplitude. Right sural no response. Right peroneal and bilateral tibial nerves no response. Took liberty of testing right radial sensory nerve, which was within normal. Concentric needle EMG was attempted in selected muscles of the bilateral lower extremity. Unfortunately patient could not tolerate further testing. Needle EMG aborted. We were not able to test more distal muscles. Of the muscles tested, there was no increased insertional activity or PSWs. Note also that patient is unable to activate muscles to clearly check for motor units. IMPRESSION: 1. This is an abnormal study. 2. Nerve conduction results suggestive of sensorimotor peripheral neuropathy. 3. Cannot completely rule out lumbar radiculopathy with incomplete needle EMG. Thank you for your kind referral. Chaya Delarosa MD, PRATEEK Board Certified, [employer] Board [employer] Physical [employer] and Rehabilitation (ABPMR) Board Certified, [employer] Board of Electrodiagnostic Medicine (ABEM) CODIN [id number] x 2 MTDD
== END 2024-04-03 15:14 | disposition home or self-care (01) ==
LOC: HO.NEURO 15:13
PROVIDERS: PCP Family Medicine; Visit Provider Nurse Practitioner Family
DX: R26.9 Unspecified abnormalities of gait and mobility (principal); G57.93 Unspecified mononeuropathy of bilateral lower limbs; M48.061 Spinal stenosis, lumbar region without neurogenic claudication
CPT/HCPCS: 95885; 95909

== ENCOUNTER → 2024-04-03 15:15 | Outpatient (BNV) | payer OTHER, SELFPAY | PROVIDERS: PCP Family Medicine; Visit Provider Physical Medicine & Rehabilitation | DX: G57.93 Unspecified mononeuropathy of bilateral lower limbs (principal) | CPT/HCPCS: 95885; 95909 ==

== ENCOUNTER 2024-05-13 12:51 | Outpatient (RCR) | payer OTHER, SELFPAY ==
--- NOTE | 2024-04-03 12:57 | MHC.PT.EP ---
[facility] [place] [facility] [place] [facility] [place] [facility] [address] Fredy Quintero [address] [phone] F: [phone] F: [phone] F: [phone] F: [phone] Physical Therapy Plan of Care Date of Evaluation: 04/03/24 Date of Surgery: Diagnosis: unspecified abnormalities of gait and mobility spinal stenosis, lumbar region without neurogenic claudication unspecified mononeuropathy of B lower limbs Assessment: 43 y/o female referred to PT with spinal stenosis, gait difficulty, and LE weakness. Of note, pt with extensive PMH that includes cauda equina syndrome 2004, lumbar decompression and discectomy 2004 and 2011, DM1, ESRD with dialysis 3days/week, PA 06/2023, and HTN. Currently pt reports pain and difficulty with everything such as walking, standing, chores, bathing, dressing, getting in/out of bad, and prolonged sitting. Examination shows hypermobility lumbar spine and hips, decreased B LE strength, absent LE reflexes, pain, altered sensation, and impaired gait pattern. Recommend PT 2x/week for 5 weeks to work on strength and functional mobility. She may also benefit from AFO d/t foot drop Frequency and Duration: The patient will be seen 2x/week for 5 weeks Short Term Goals: 3 weeks I with HEP Demonstrate sit to stand without hands 4/5x Shelter Goals: 5 weeks I with HEP and self management of sx Pt will improve LEFS 14/80 (IR 5/80) Pt will be able to ambulate > 10 minutes with pain < 3/10 Treatment Plan: Modalities to reduce pain, spasms and effusion. Manual therapy to restore motion and function. Therapeutic exercise to improve strength and flexibility. Neuromuscular re-education for posture and balance. Therapeutic activities to return to functional activities of daily living. Electronically signed by: Paige Lind PT Please sign and return to therapist. Thank you for your referral.
--- NOTE | 2024-06-19 10:52 | MHC.PT.DC ---
[facility] [place] Office [place] Office [place] Office [address] Fredy Quintero [address] [phone] F: [phone] F: [phone] F: [phone] F: [phone] Physical Therapy Discharge Report Diagnosis: unspecified abnormalities of gait and mobility spinal stenosis, lumbar region without neurogenic claudication unspecified mononeuropathy of B lower limbs Date of Surgery: Date of Evaluation: 04/03/24 Date of Discharge: 06/19/24 Treatments to Date: 9 Cancellations to Date: 0 No Shows to Date: 0 Discharge Status: Improved Function Independent with HEP Discharge Summary: Pt with good gains during PT and compliant with HEP. Pt continues to be motivated and will continue with I HEP Electronically signed by: Paige Lind PT Please sign and return to therapist. Thank you for your referral.
== END 2024-06-19 10:53 | disposition home or self-care (01) ==
LOC: HO.PT 12:51
PROVIDERS: PCP Family Medicine; Visit Provider Nurse Practitioner Family
DX: R26.9 Unspecified abnormalities of gait and mobility (principal); M48.061 Spinal stenosis, lumbar region without neurogenic claudication; G57.93 Unspecified mononeuropathy of bilateral lower limbs
CPT/HCPCS: 97110; 97163; 97530

== ENCOUNTER 2024-05-30 11:35 | Emergency (ER) | payer OTHER, SELFPAY ==
[2024-05-30] VITALS (7 sets, daily range): BP systolic 127–186; BP diastolic 30–91; PULSE 68–94; RESP 18–25; TEMP -17.7–36.8; O2SAT 96–100; BMI 39.7
--- NOTE | 2024-05-30 | ECG_ITS ---
Test Reason : CHEST PAIN Blood Pressure : / mmHG Vent. Rate : 094 BPM Atrial Rate : 094 BPM P-R Int : 158 ms QRS Dur : 090 ms QT Int : 378 ms P-R-T Axes : 047 -05 057 degrees QTc Int : 472 ms Artifact in tracing Normal sinus rhythm Nonspecific ST abnormality Abnormal ECG When compared with ECG of 10-SEP-2023 13:52, Vent. rate has increased BY 36 BPM T wave amplitude has increased in Anterior leads Referred By: Generic ED Physician Electronically Signed By:ANA LUISA COLLAZO
--- NOTE | ~2024-05-30 | CT_ITS ---
EXAMINATION: CT ABDOMEN AND PELVIS WITHOUT CONTRAST CLINICAL INFORMATION: Diffuse abdominal pain COMPARISON: CT 09/11/2023 TECHNIQUE: Multidetector volumetric imaging was performed from the superior aspect of the liver through the pubic symphysis. Sagittal and coronal reformatted images were obtained on the technologist's workstation. This CT examination was performed using dose optimization techniques as appropriate, variously including the following: *Automated exposure control *Adjustment of mA and/or kV according to patient size (this includes techniques or standardized protocols for targeted exams where dose is matched to indication/reason for exam; i.e. extremities or head) *Use of iterative reconstruction technique DLP: 981 mGy-cm FINDINGS: LUNG BASES: The visualized lung bases are unremarkable. LIVER, GALLBLADDER, AND BILIARY TREE: The liver is normal in size, shape, and attenuation. No focal hepatic lesion or biliary ductal dilatation is present. The gallbladder is unremarkable with no evidence of radiopaque gallstones, gallbladder wall thickening, or obvious pericholecystic inflammatory changes. PANCREAS: Unremarkable. SPLEEN: Unremarkable. ADRENAL GLANDS: No change in the 2.8 x 2.3 cm left adrenal adenoma. KIDNEYS AND URETERS: The kidneys are normal in size, shape, and attenuation. No hydronephrosis, hydroureter, or calculi seen. No perinephric stranding. BLADDER: Unremarkable. GASTROINTESTINAL TRACT: The small and large bowel are unremarkable. The appendix is unremarkable. ABDOMINAL WALL: No significant hernia is appreciated. LYMPH NODES: Normal. VASCULAR: Diffuse vascular calcifications. PELVIC VISCERA: Unremarkable. OSSEOUS STRUCTURES: Severe degenerative disc disease at L4-L5. Posterior disc osteophyte complexes at L3-L4 and L4-L5 with severe central stenosis. CT/CT abdomen pelvis wo IV con IMPRESSION: 1. No focal inflammatory process or obstruction. 2. No change in the left adrenal adenoma. 3. Severe central stenosis at L3-L4 and L4-L5. Fleischner guidelines were followed. Electronically signed by: Phill Burciaga MD 05/30/2024 06:41 PM FATOU
--- NOTE | 2024-05-30 13:12 | ED.NAVMDI ---
HPI - Nausea/Vomiting/Diarrhea General Chief complaint: Nausea/Vomiting/Diarrhea Stated complaint: CHEST/JAW PAIN,VOMITING PER EMS Time Seen by Provider: 05/30/24 12:35 Source: patient Mode of arrival: ambulatory Limitations: no limitations History of Present Illness ED Provider: FELA Gregorio HPI Narrative: 43 year old female history of obesity, diabetes type 1, NSTEMI, end-stage renal disease on dialysis Sunday, Sunday, Sunday, hyperlipidemia, major depression, anemia presents with nausea, vomiting, abdominal pain for the past 4 days worsening. Patient reports she has a history of diabetic gastroparesis and this feels like her typical episode. She reports she has not been able to keep much down. Reports pain is excruciating greater than 10/10. Denies fevers, chills, back pain, headache, vision changes, dizziness, weakness Related Data Home Medications ?Medication ?Instructions ?Recorded ?Confirmed sevelamer carbonate 800 mg tablet 800 mg PO TIDWM PRN WITH MEALS 07/27/21 03/05/24 calcitriol 0.25 mcg capsule 0.25 mcg PO TUTHSA 09/10/23 03/05/24 atorvastatin 80 mg tablet 80 mg PO DAILY 11/29/23 03/05/24 Previous Rx's ?Medication ?Instructions ?Recorded insulin syringe-needle U-100 0.3 ##100 10/12/21 mL 31 gauge x 5/16 (BD Insulin Syringe Ultra-Fine) inhalational spacing device #1 ea 02/07/22 (Aerochamber MV spacer) blood sugar diagnostic (FreeStyle #100 ea 09/05/22 Lite Strips) lancets 28 gauge (FreeStyle #100 ea 09/05/22 Lancets) blood-glucose meter (FreeStyle #1 ea 12/13/22 Lite Meter kit) montelukast 10 mg tablet 10 mg PO BEDTIME #90 tabs 09/04/23 pen needle, diabetic 32 gauge x #125 ea 09/25/23 (BD Ultra-Fine Esperanza Pen Needle) blood-glucose meter,continuous #1 ea 10/04/23 (FreeStyle Fan 3 [place]) blood-glucose sensor (FreeStyle #2 ea 10/04/23 Fan 3 Sensor device) insulin aspart U-100 100 unit/mL 1 sliding scale dose subcut 12/12/23 (3 mL) subcutaneous pen (Novolog USEASDIRECTD 30 days #15 mL FlexPen U-100 Insulin aspart) albuterol sulfate 90 mcg/actuation 2 puff PO Q4H PRN for wheezing 1 12/26/23 aerosol inhaler (Ventolin HFA) month #8.5 grams clonazepam 0.5 mg tablet 0.5 mg PO TID PRN anxiety 30 days 01/30/24 #90 tabs insulin degludec 200 unit/mL (3 20 unit (0.1 mL) subcut BEDTIME 30 02/25/24 mL) subcutaneous pen (Tresiba days #3 mL FlexTouch U-200 insulin) diclofenac sodium 1 % topical gel 4 g topical QID 30 days #200 grams 04/28/24 Allergies Allergy/AdvReac Type Severity Reaction Status Date / Time Penicillins Allergy Intermediate compromises Verified 05/30/24 11:48 mental health Review of Systems Review of Systems: Yes all other systems are reviewed and are negative [facility] Past Medical History Attestation statement: The following information was validated with the patient. Source: old records reviewed and nursing notes reviewed Medical History 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 Autism Coronary artery disease Uncontrolled diabetes mellitus with hyperglycemia, with long-term current use of insulin Adrenal incidentaloma ESRD needing dialysis NSTEMI (non-ST elevated myocardial infarction) MDD (major depressive disorder) Hyperlipidemia due to type 1 diabetes mellitus Diabetic retinopathy Cauda equina syndrome Anasarca associated with disorder of kidney DM gastroparesis Abnormal abdominal MRI Hearing loss in right ear Hearing loss in left ear RSV infection Hypertensive urgency Diabetes mellitus type 1, uncontrolled Gastroparesis Moderate persistent asthma, uncomplicated Chronic GERD Cyclic vomiting syndrome Surgical History AVF (arteriovenous fistula) Previous back surgery Family History Family History Father Diabetes Paternal Grandfather Diabetes Mother No known problems Social History Social History Housing: Apartment Alcohol intake: unknown Patient Tobacco Use Status: Former Tobacco user Smoked in Last 30 Days: No e-Cigarette/Vaping Use: Never Used Second Hand Smoke Exposure: No Use of substances other than those prescribed or required for medical reasons: No Substance Use Type: Marijuana Advance Directives: Yes Advance Directives on File: Yes Advance Directives Date on File: 08/31/22 Do you have a plan to hurt others: No Plan Patient : No service: No Current occupational status: disabled Current occupational exposures/hazards: No Cognitive needs: No Hearing needs: No Vision needs: No Physical Exam Vital Signs: Vital Signs: Last Vital Signs Temp 98.2 F 05/30/24 15:42 Pulse 77 05/30/24 15:42 Resp 18 05/30/24 15:42 BP 127/56 L 05/30/24 15:42 Pulse Ox 96 05/30/24 15:42 O2 Del Method Room Air 05/30/24 15:42 BMI result Body Mass Index 39.7 vss Appearance: Alert.? Oriented X3.? + appears uncomfortable Head: Normocephalic, atraumatic, no step-offs or deformities Eyes: Pupils equal, round and reactive to light.?? CVS: Normal heart rate and rhythm.? Pulses normal.? Respiratory: No respiratory distress.? Breath sounds normal.? Abdomen: Soft and + diffuse tenderness .? Skin: Skin warm and dry.? Normal skin color.? Normal skin turgor.? Extremities: No lower extremity edema.? No calf ttp. 5/5 strength to bilateral upper and lower extremities Back: No midline tenderness, no C-spine tenderness, full range of motion, no CVA tenderness bilaterally Neuro: Oriented X 3.? No motor deficit.? No sensory deficit. CN 2-12 intact Course Reevaluation(s) Reevaluation #1: CBC with a normocytic anemia appears to be around baseline. Chemistry with elevated anion gap, elevated BUN and creatinine which is baseline she skipped dialysis today she is scheduled to go on Sunday to make up for today's session. She also has an elevated beta hydroxybutyrate, glucose is 139 normal VBG I suspect that elevated anion gap, elevated beta hydroxybutyrate likely secondary to starvation ketosis from nausea, vomiting for the past 4 days. Coags unremarkable. Flu, COVID, RSV negative. CT scan is pending. Patient is receiving IV hydration with normal saline. May transition to lactated Ringer's after 2 L. Will repeat labs to ensure acidosis improving. I do not suspect infection. UA, CT abd and pelvis and reval pending. Time: 15:54 Reevaluation #2: Patient not feeling well. Still having pain. Another dose of Dilaudid ordered. CT scan pending. I do suspect she has starvation ketosis. Likely will require admission. Sign out to Kendrick CHAHAL Time: 16:12 Medications Administered Discontinued Medications Generic Name Dose Route Start Last Admin Trade Name Freq PRN Reason Stop Dose Admin Al Hydroxide/Mg Hydroxide 15 ml 05/30/24 12:26 05/30/24 13:23 Magnesium Hydrox/Alum Hydrox 30 Ml Oral.Susp PO 05/30/24 12:27 15 ml ONCE ONE Administration Diphenhydramine HCl 25 mg 05/30/24 13:11 05/30/24 13:23 Diphenhydramine Hcl 50 Mg/Ml Vial IVPUSH 05/30/24 13:12 25 mg ONCE ONE Administration Hydromorphone HCl 1 mg 05/30/24 13:11 05/30/24 13:16 Hydromorphone Hcl 1 Mg/Ml Syringe IVPUSH 05/30/24 13:12 1 mg ONCE ONE Administration Protocol Lorazepam 1 mg 05/30/24 15:20 05/30/24 15:26 Lorazepam 2 Mg/Ml Vial IVPUSH 05/30/24 15:21 1 mg STAT STA Administration Metoclopramide HCl 10 mg 05/30/24 13:11 05/30/24 13:23 Metoclopramide Hcl 10 Mg/2 Ml Vial IVPUSH 05/30/24 13:12 10 mg ONCE ONE Administration Ondansetron HCl 4 mg 05/30/24 12:39 05/30/24 13:00 Ondansetron Hcl 4 Mg/2 Ml Vial IVPUSH 05/30/24 12:40 Not Given ONCE ONE Pantoprazole Sodium 40 mg 05/30/24 12:26 05/30/24 13:23 Pantoprazole Sodium 40 Mg/10 Ml Vial IVPUSH 05/30/24 12:27 40 mg ONCE ONE Administration Medical Decision Making Medical Decision Making [facility] Narrative: 1313 43 year old female presents w/ nausea, vomiting and abd syed x 4 days PE appears uncomfortable and diffuse abd discomfort Hx and pe concerning for diabetic gastroparesis, vs colitis. Unlikley DKA, HHS, acute abdomen, diverticulitis, aaa. Will rule out metabolic derangments. Plan- lab, ua, imaging, imaging Differential Diagnosis Differential Diagnoses: The differential diagnosis associated with the presentation includes (Hx and pe concerning for diabetic gastroparesis, vs colitis. Unlikley DKA, HHS, acute abdomen, diverticulitis, aaa. Will rule out metabolic derangments. ) Admission/Observation Consideration of admission/observation: Escalation of care including admission/observation considered Lab Data MDM Lab Attestation statement: I reviewed the patient's lab results. 05/30/24 14:48 05/30/24 14:48 Labs: Lab Results 05/30/24 05/30/24 05/30/24 Range/Units 13:02 14:48 14:56 WBC 7.1 (4.8-10.8) X10*3/uL RBC 3.59 L D (4.20-5.50) X10*6/uL Hgb 10.7 L D (12.0-16.0) g/dl Hct 31.5 L D (37.0-47.0) % MCV 87.7 (80.0-98.0) fL MCH 29.8 (27.0-33.0) pg MCHC 34.0 (31.0-35.0) g/dl RDW 13.3 (11.0-16.0) % Plt Count 260 (160-400) X10*3/uL MPV 10.0 (9.4-12.3) fL Immature Gran % (Auto) 0.3 (0.0-0.4) % Neut % (Auto) 76.6 H (45-73) % Lymph % (Auto) 17.3 L (20-40) % [place]mer % (Auto) 4.5 (2-11) % Eos % (Auto) 0.6 (0-4) % Baso % (Auto) 0.7 (0-2) % Lymph # (Auto) 1.2 (1.2-4.9) X10*3/uL Gilmer # (Auto) 0.3 (0.1-1.2) X10*3/uL Eos # (Auto) 0.0 (0.0-0.4) X10*3/uL Baso # (Auto) 0.1 (0.0-0.2) X10*3/uL Abs Immat Gran (auto) 0.02 (0.00-0.03) X10*3/uL Absolute Neuts (auto) 5.4 (2.0-8.3) x10*3/uL Absolute Nucleated RBC 0.000 (0.0-0.012) X10*3/uL Nucleated RBC % (auto) 0.0 (0.0-0.2) /100WBC PT 11.9 (10.9-12.4) SEC INR 1.0 (0.9-1.1) APTT 27.0 (26.0-36.8) SEC VBG pH 7.42 (7.32-7.43) VBG pCO2 35 mmHg VBG pO2 102 mmHg VBG HCO3 23 (22-26) mmol/L VBG O2 Saturation 97.0 % VBG Base Excess -0.7 mmol/L Sodium 136 (135-145) mmol/L Potassium 5.0 (3.3-5.1) mmol/L Chloride 97 (96-108) mmol/L Carbon Dioxide 21 L (22-29) mmol/L Anion Gap 23 H (12-20) BUN 60 H (9-16) mg/dL Creatinine 10.88 H* (0.5-1.4) mg/dL Estim Creat Clear Calc 8.5 Estimated GFR 4 Random Glucose 139 H (60-115) mg/dL Calcium 8.6 D (8.4-10.2) mg/dL Magnesium 2.3 (1.6-2.6) mg/dL Total Bilirubin 0.2 (0.0-1.0) mg/dL AST 14 (5-31) U/L Troponin I High Sens 42.1 H (<3.5-17.0) ng/L Total Protein 6.7 (6.5-8.0) g/dL Albumin 3.6 (3.5-5.0) g/dL Beta-Hydroxybutyrate 0.63 H (0.02-0.27) mmol/L Beta HCG, Quant 3 mIU/mL Influenza Type A (PCR) NEGATIVE (Negative) Influenza Type B (PCR) NEGATIVE (Negative) RSV RNA Qual (PCR) NEGATIVE (Negative) SARS-CoV-2 RNA (RT-PCR) NEGATIVE (Negative) Independent Interpretation I performed an independent interpretation of an: CT Scan Radiology Impression Discussion of test interpretation with radiology: I have reviewed the radiologist's reading. Independent Historian Clinical information obtained from an independent historian. History obtained from or confirmed by: EMS External Record Review External record reviewed: Inpatient record, Office record, Outpatient record, Prior outpatient labs, Prior outpatient radiology and Primary care record Chronic Conditions Patient?s care impacted by: Other (see hpi ) Critical Care Time Critical Care Time Critical Care Time: Yes Total Critical Care Time: 35 Attestation: I attest to this time spent taking care of the patient, obtaining history, physical, reviewing labs, imaging, treatment of patients condition +/- specialist/hospitalist consult Discharge Plan Discharge Clinical Impression: Ketosis, Abdominal pain, Nausea & vomiting, 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 Patient Disposition: Still a Patient Prescriptions: No Action (DME) insulin syringe-needle U-100 [BD Insulin Syringe Ultra-Fine] 0.3 mL 31 gauge x 5/16 syringe See Rx Instructions .ROUTE .COMPLEX Qty: 100 5RF Dose Instruction: USE 3 TIMES A DAY Rx Instructions: USE 3 TIMES A DAY (DME) Aerochamber MV Spacer See Rx Instructions .ROUTE .MEDSUPPLY Qty: 1 0RF Rx Instructions: As directed (DME) FreeStyle Lite Strips Strip See Rx Instructions .Route Qty: 100 3RF Rx Instructions: Use to check blood sugar 4 times daily, before mealtimes and bedtime. (DME) lancets [FreeStyle Lancets] 28 gauge misc See Rx Instructions .Route Qty: 100 3RF Rx Instructions: Use to check blood sugar 4 times daily, before mealtimes and bedtime. montelukast 10 mg tablet 10 mg PO BEDTIME Qty: 90 3RF (DME) pen needle, diabetic [BD Ultra-Fine Esperanza Pen Needle] 32 gauge x 5/32 needle See Rx Instructions .ROUTE .MEDSUPPLY Qty: 125 11RF Rx Instructions: As directed four times a day (DME) FreeStyle Fan 3 Sensor Device See Rx Instructions .Route Qty: 2 11RF Rx Instructions: As directed (DME) FreeStyle Fan 3 [place] Misc See Rx Instructions .Route Qty: 1 0RF Rx Instructions: As directed insulin aspart U-100 [Novolog FlexPen U-100 Insulin] 100 unit/mL (3 mL) insulin pen 1 sliding scale dose subcut USEASDIRECTD 30 Days Qty: 15 2RF Rx Instructions: TID with meals 180-200 2U, 201-251 4U, 252-302 6U, 303-353 8U, 354-404 10 U, 405-455 12U and call PCP, MAX daily 48 units albuterol sulfate [Ventolin HFA] 90 mcg/actuation HFA aerosol inhaler 2 puff PO Q4H PRN (Reason: for wheezing) 30 Days Qty: 8.5 8RF clonazepam 0.5 mg tablet 0.5 mg PO TID PRN (Reason: anxiety) 30 Days Qty: 90 0RF Rx Instructions: MassPat Verified insulin degludec [Tresiba FlexTouch U-200] 200 unit/mL (3 mL) insulin pen 20 unit subcut BEDTIME 30 Days Qty: 3 6RF diclofenac sodium 1 % gel 4 g topical QID 30 Days Qty: 200 2RF Rx Instructions: apply to single knee, ankle, foot; for foot includes sole/toes/top of foot calcitriol 0.25 mcg capsule 0.25 mcg PO TUTHSA (DME) blood-glucose meter [FreeStyle Lite Meter] Kit See Rx Instructions .Route Qty: 1 0RF Rx Instructions: Use to check blood sugar 4 times daily, before mealtimes and bedtime. atorvastatin 80 mg tablet 80 mg PO DAILY sevelamer carbonate 800 mg tablet 800 mg PO TIDWM PRN (Reason: WITH MEALS) Print Language: Yakut
[2024-05-30] MEDS: HYDROmorphone HCl 1 MG/ML SYRINGE IVPUSH ×2 (13:16→16:54)
[2024-05-30] MEDS: diphenhydrAMINE HCL 50 MG/ML VIAL 25 MG IVPUSH (13:23)
[2024-05-30] MEDS: Pantoprazole Sodium 40 MG/10 ML VIAL IVPUSH (13:23)
[2024-05-30] MEDS: Metoclopramide HCl 10 MG/2 ML VIAL IVPUSH (13:23)
[2024-05-30] MEDS: Magnesium Hydrox/Alum Hydrox 30 ML ORAL.SUSP 15 ML PO (13:23)
[2024-05-30 13:30] LABS: Troponin-I High Sensitivity 42.1 ng/L (<3.5-17.0)
[2024-05-30 13:47] LABS: Influenza A PCR NEGATIVE (Negative); Influenza B PCR NEGATIVE (Negative); Resp Syncy Virus RNA Qual PCR NEGATIVE (Negative); SARS COV2 PCR INHOUSE NEGATIVE (Negative)
[2024-05-30 14:54] LABS: MANUAL DIFF FLAG NO
--- NOTE | 2024-05-30 14:54 | MHC.EDTECH ---
This pct attempted to draw blood on right side due to fisula on left arm and was unsuccessful, after consulting the nurse and nurse coordinator drawing blood from the hand as a last resort due to difficult draw was ok to do. RN Aware
[2024-05-30 14:59] LABS: Basophils Absolute Auto 0.1 X10*3/uL (0.0-0.2); Basophils Percent Auto 0.7 % (0-2); Eosinophils Percent Auto 0.6 % (0-4); Hematocrit 31.5 % (37.0-47.0); Hemoglobin 10.7 g/dl (12.0-16.0); Imm Gran Abs Auto 0.02 X10*3/uL (0.00-0.03); Imm Gran Pct Auto 0.3 % (0.0-0.4); Lymphocytes Absolute Auto 1.2 X10*3/uL (1.2-4.9); Lymphocytes Percent Auto 17.3 % (20-40); Mean Corpuscular Hemoglobin 29.8 pg (27.0-33.0); Mean Corpuscular Volume 87.7 fL (80.0-98.0); Monocytes Absolute Auto 0.3 X10*3/uL (0.1-1.2); Monocytes Percent Auto 4.5 % (2-11); Neutrophils Absolute Auto 5.4 x10*3/uL (2.0-8.3); Neutrophils Percent Auto 76.6 % (45-73); Platelet Count 260 X10*3/uL (160-400); Red Blood Count 3.59 X10*6/uL (4.20-5.50); Red Cell Distribution Width 13.3 % (11.0-16.0); White Blood Count 7.1 X10*3/uL (4.8-10.8)
[2024-05-30 15:02] LABS: Prothrombin Time 11.9 SEC (10.9-12.4)
[2024-05-30 15:21] LABS: Beta-Hydroxybutyrate 0.63 mmol/L (0.02-0.27)
[2024-05-30] MEDS: LORazepam 2 MG/ML VIAL 1 MG IVPUSH (15:26)
[2024-05-30 15:27] LABS: Creatinine Clr Calc Pharmacy 8.5; Estimated Glomerular Filt Rate 4
[2024-05-30 15:32] LABS: Albumin Level 3.6 g/dL (3.5-5.0); Anion Gap 23 (12-20); Aspartate Amino Transferase 14 U/L (5-31); Bilirubin Total 0.2 mg/dL (0.0-1.0); Blood Urea Nitrogen 60 mg/dL (9-16); Calcium 8.6 mg/dL (8.4-10.2); Carbon Dioxide 21 mmol/L (22-29); Chloride 97 mmol/L (96-108); Glucose Random 139 mg/dL (60-115); HCG Quantitative 3 mIU/mL; Magnesium 2.3 mg/dL (1.6-2.6); Sodium 136 mmol/L (135-145); Total Protein 6.7 g/dL (6.5-8.0)
[2024-05-30 15:47] LABS: VBG Base Excess -0.7 mmol/L; VBG HCO3 23 mmol/L (22-26); VBG pCO2 35 mmHg; VBG pH 7.42 (7.32-7.43); VBG pO2 102 mmHg
[2024-05-30 15:47] LABS: Venous Blood Gas Refer to POC result
[2024-05-30] MEDS: 0.9 % Sodium Chloride 1,000 ML 999 ML IV (16:53)
[2024-05-30 17:10] LABS: Alanine Aminotransferase 8 U/L (0-31); Alkaline Phosphatase 254 U/L (39-117); Lipase 15 U/L (8-78)
[2024-05-30] MEDS: Lactated Ringers 1,000 ML 999 ML IV (18:25)
--- NOTE | 2024-05-30 20:18 | PM.EVENT ---
Event Note Date of Service: 05/30/24 Event Note: I was asked to evaluate the patient for possible admission. Patient presents with nausea, nonbloody emesis and generalized abdominal discomfort x4 days. Does have a history of diabetic gastroparesis. Patient was given IV Dilaudid 1 mg x 2 while in the ER. Patient specifically only wants IV Dilaudid while in the hospital. Refusing to try other opioid and nonopioid analgesics. Also refusing to give complete history, additional lab work or any intervention at this time. Does not wish to stay in the hospital. Patient has capacity and understands the risks of leaving against medical advice including worsening acidosis and/or . Asked to return to the ER in case of new or worsening complaints. Time Spent With Patient Time: Total time managing care of this patient today ____ minutes.
== END 2024-05-30 21:05 | disposition left against medical advice (07) ==
PROVIDERS: Physician Assistant; Physician Assistant Medical; Emergency Provider Emergency Medicine Emergency Medical Services; PCP Family Medicine
DX: E10.10 Type 1 diabetes mellitus with ketoacidosis without coma (principal); R11.2 Nausea with vomiting, unspecified; E10.22 Type 1 diabetes mellitus with diabetic chronic kidney disease; N18.6 End stage renal disease; R07.9 Chest pain, unspecified; D64.9 Anemia, unspecified; R10.9 Unspecified abdominal pain; E78.5 Hyperlipidemia, unspecified; F32.A Depression, unspecified; Z99.2 Dependence on renal dialysis; Z79.4 Long term (current) use of insulin; Z03.818 Encounter for observation for suspected exposure to other biological agents ruled out
CPT/HCPCS: 0241U; 36415; 74176; 80053; 82010; 82803; 83690; 83735; 84484; 84702; 85025; 85610; 85730; 93005; 96361; 96374; 96375; 96376; 99285; J1171; J1200; J2060; J2470; J2765; J7120

== ENCOUNTER → 2024-05-30 11:48 | Outpatient (BNV) | payer OTHER, SELFPAY | PROVIDERS: Emergency Provider Emergency Medicine Emergency Medical Services; PCP Family Medicine; Visit Provider Internal Medicine | DX: R07.9 Chest pain, unspecified (principal); R94.31 Abnormal electrocardiogram [ECG] [EKG] | CPT/HCPCS: 93010 ==

== ENCOUNTER → 2024-06-11 | Outpatient (BNV) | payer OTHER, SELFPAY | PROVIDERS: PCP Family Medicine; Visit Provider Internal Medicine Nephrology | DX: N18.6 End stage renal disease (principal) | CPT/HCPCS: 90961 ==

== ENCOUNTER → 2024-07-12 | Outpatient (BNV) | payer OTHER, SELFPAY | PROVIDERS: PCP Family Medicine; Visit Provider Internal Medicine Nephrology | DX: N18.6 End stage renal disease (principal) | CPT/HCPCS: 90961 ==

== ENCOUNTER 2024-07-22 16:22 | Outpatient (AMB) | payer OTHER, SELFPAY ==
--- OUTSIDE RECORDS SUMMARY | 2024-07-22 16:25 | XMS_ITS ---
Author Name [facility] Organization Unknown History of Medication Use Medication Directions Dispensed Refills Start Date End Date Stat us polyethylene glycol (miraLAx) 17 g packet Take 1 packet (17 g total) by mouth daily as needed for constipation. 09/05/2022 10/06/2022 active acetaminophen (TYLENOL) 325 MG tablet Take 3 tablets (975 mg total) by mouth every 4 (four) hours as needed for mild pain, headaches or fever. 09/05/2022 10/06/2022 active Tresiba FlexTouch 200 UNIT/ML prefilled pen injection Inject 2 Units under the skin daily. Increase as your blood sugars increase 09/05/2022 active clonazePAM (KlonoPIN) 0.5 MG tablet Take 1 tablet (0.5 mg total) by mouth 2 (two) times a day as needed. For Anxiety 08/02/2022 active verapamil (VERELAN PM) 120 MG 24 hr capsule Take 1 capsule (120 mg total) by mouth nightly. active albuterol (PROVENTIL HFA; VENTOLIN HFA) 108 (90 Base) MCG/ACT inhaler Inhale 2 puffs every 4 (four) hours as needed for wheezing or shortness of breath. 09/05/2022 10/06/2022 active Problems Problem Status Onset Date Problem Type Date of Resoluti on Source ESRD (end stage renal disease) active 2022-09-01 ProblemAct [facility] Diabetic nephropathy associated with type 2 diabetes mellitus active 2022-09-01 ProblemAct [facility] Back pain of thoracolumbar region active 2022-09-01 ProblemAct [facility] Anxiety disorder active 2018-11-17 ProblemAct [facility] Degeneration of intervertebral disc of lumbar region active 2022-09-01 ProblemAct [facility] Type 1 diabetes mellitus with diabetic chronic kidney disease active 2020-10-25 ProblemAct [facility] Mild intermittent asthma active 2022-09-01 ProblemAct [facility] Diabetes mellitus treated with insulin active 2022-09-01 ProblemAct [facility] Hyperlipidemia active 2018-11-[address] Essential hypertension active 2018-10-15 [facility]
--- OUTSIDE RECORDS SUMMARY | 2024-07-22 16:25 | XMS_ITS | Encounter Summary ---
Author Organization [facility], Address [address] [place] [address] Phone Care Team Providers Care Mophead Sewer Name Role Phone Medina Ren NP Primary Care Provider [phone] Encounter Details Date Type Department Care Team (Late st Contact Info) Description 06/25/2024 Orders Only [facility] [address] [place] [address] Cooper Mena MD [address] [place] [phone] Social History Tobacco Use Types Packs/Day Years Used Date Smoking Tobacco: Former Cigarettes Q uit: 06/11/2009 Smokeless Tobacco: Never Alcohol Use Standard Drinks/Week Comments No 0 (1 standard drink = 0.6 oz pur e alcohol) Comments Unknown Sex and Gender Information Value Date Recorded Sex Assigned at Not on file Legal Sex Female 4:45 PM EST Gender Identity Not on file Sexual Orientation Not on file documented as of this encounter Plan of Treatment Not on file documented as of this encounter Procedures Procedure Name Priority Date/Time Associated Diagnosis Comments SPECIAL CHEMISTRY Routine 06/25/2024 SPECIAL CHEMISTRY Routine 06/25/2024 IMMUNO CHEMISTRY Routine 06/25/2024 TRACE ELEMENTS Routine 06/25/2024 HEMATOLOGY Routine 06/25/2024 CHEMISTRY Routine 06/25/2024 CHEMISTRY Routine 06/25/2024 documented in this encounter Results * (ABNORMAL) SPECIAL CHEMISTRY (06/25/2024) Hemoglobin A1C 7.5(H) 4.8 - 5.9 % [facility] 06/25/2024 06/30/2024 11: 12 AM EST Narrative [facility] - 06/30/2024 Unless otherwise specified, test(s) performed at: [facility], [address] [place], [place] [id number] LIGHT CLEANER: Reece Sexton M.D. For any questions, please call customer service at FREQUENCY:MONTHLY Resulting Agency Comment Specimen source: Blood Cooper Mena MD LAB BLOOD BANK TEST ORDERABLE S Final Result Performing Organization Address [facility] de Phone Number [facility] See order comments or contact performing lab Unknown, [place] * TRACE ELEMENTS (06/25/2024) Aluminum <5 0 - 10 mcg/L [facility] Comment: This test was developed and its performance characteristics determined by [facility]. It has not been cleared or approved by the FDA. The laboratory is regulated under CLIA as qualified to perform high complexity testing. This test is used for clinical purposes. It should not be regarded as investigational or for research. 06/25/2024 06/30/2024 11: 11 AM EST Narrative [facility] - 06/30/2024 Unless otherwise specified, test(s) performed at: [facility], [address] [place] [id number] LIGHT CLEANER: Reece Sexton M.D. For any questions, please call customer service at FREQUENCY:MONTHLY Resulting Agency Comment Specimen source: Serum Cooper Mena MD LAB BLOOD ORDERABLES Final Re sult Performing Organization Address [facility] de Phone Number [facility] See order comments or contact performing lab Unknown, [place] * IMMUNO CHEMISTRY (06/25/2024) Hep B Surface Ag Negative Negative [facility] Hepatitis B Surface Ab 14 mIU/mL [facility] Comment: The anti-HBs (Hepatitis B surface antibody) is greater than or equal to 10 mIU/mL and implies immunity. The patient has either had an antibody response to HBV vaccination, received a transfusion, or has recovered from HBV infection. For post-vaccination antibody testing guidelines for the general public, refer to MMWR June 02, 2005/Vol.54 (No. 16); 07-03, and for healthcare workers, refer to MMWR May 30, 2013/Vol.62 (No. 10); 06-28. Reference Range: <10 mIU/mL ? Non-Immune >=10 mIU/mL ?Immune The magnitude of the measured result above 10 mIU/mL is not indicative of the total amount of antibody present. Verified by repeat analysis. Hepatitis C Antibody Nonreactive Nonreactive [facility] Comment: No HCV antibody detected. The above test result was obtained using Siemens Conecte Linkaur XP chemiluminescent method. Results obtained with different assay methods or kits cannot be used interchangeably. S/CO Ratio 0.04 0.00 - 0.79 [facility] Comment: s/co ratio ?Interpretation ?Supplemental testing <0.80 ? Nonreactive ? No further testing required. 0.80-0.99 ? Equivocal ? HCV RNA Quantitative Real-Time PCR is recommended. 1.00->11.00 ?? Reactive ?HCV RNA Quantitative Real-Time PCR is recommended to distinguish active from resolved cases. 06/25/2024 06/30/2024 11: 06 AM EST Narrative NICK - 06/30/2024 Unless otherwise specified, test(s) performed at: [facility], [address] [place] [id number] LIGHT CLEANER: Reece Sexton M.D. For any questions, please call customer service at FREQUENCY:MONTHLY Resulting Agency Comment Specimen source: Serum Cooper Mena MD LAB BLOOD ORDERABLES Final Re sult [facility] See order comments or contact performing lab Unknown, [place] * (ABNORMAL) SPECIAL CHEMISTRY (06/25/2024) Pathologist [facility] Vitamin D, 25-OH, Total 21.0(L) 30.0 - 100.0 ng/mL [facility] Comment: Please Note:? Effective April 09, 2023, the methodology for this test has changed to the RECOMBINETICSAUR. 06/25/2024 06/30/2024 11: 06 AM EST Narrative Resulting Agency Comment Specimen source: Serum Cooper Mena MD LAB BLOOD BANK TEST ORDERABLE S Final Result Performing Organization Address [facility] Co de Phone Number [facility] See order comments or contact performing lab Unknown, [place] * (ABNORMAL) [facility] Chemistry (06/25/2024) Pathologist [facility] Creatinine 10.17(H) 0.60 - 1.30 mg/dL [facility] Sodium 138 136 - 145 mEq/L [facility] Potassium 6.0(H) 3.5 - 5.1 mEq/L [facility] Bicarbonate (CO2) 23 22 - 29 mEq/L [facility] Calcium 9.1 8.4 - 10.2 mg/dL [facility] Corrected Calcium 9.2 8.4 - 10.2 mg/dL [facility] Comment: Corrected Calcium is not equivalent to measured Ionized Calcium. Phosphorus 9.3(H) 2.6 - 4.5 mg/dL [facility] Calcium Phosphorus Product 85(H) 0 - 54 [facility] Calcium Phosporus Product, Cor 86(H) 0 - 54 [facility] Alkaline Phosphatase 239(H) 35 - 104 U/L [facility] ALT (SGPT) 6(L) 7 - 52 U/L [facility] Albumin 3.9 3.5 - 5.2 g/dL [facility] Glucose 83 70 - 100 mg/dL [facility] Ferritin 585(H) 10 - 291 ng/mL [facility] Iron 79 30 - 160 mcg/dL [facility] UIBC 134(L) 155 - 355 mcg/dL [facility] TIBC 213 185 - 515 mcg/dL [facility] Iron Saturation (TSat) 37 20 - 55 % [facility] 06/25/2024 06/30/2024 11: 06 AM EST Narrative [facility] - 06/30/2024 Unless otherwise specified, test(s) performed at: [facility], [address] [place], [place] [phone] LIGHT CLEANER: Reece Sexton M.D. For any questions, please call customer service at FREQUENCY:MONTHLY Resulting Agency Comment Specimen source: Serum Cooper Mena MD LAB BLOOD ORDERABLES Final Re sult Performing Organization Address [facility] Co de Phone Number [facility] See order comments or contact performing lab Unknown, [place] * (ABNORMAL) HEMATOLOGY (06/25/2024) Hemoglobin 10.9(L) 12.0 - 16.0 g/dL [facility] Hemoglobin x 3 32.7(L) 36.0 - 48.0 % [facility] Reticulocyte Hemoglobin 31.1 25.4 - 31.8 pg [facility] 06/25/2024 06/30/2024 11: 12 AM EST Narrative [facility] - 06/30/2024 Unless otherwise specified, test(s) performed at: [facility], [address] [place] [id number] LIGHT CLEANER: Reece Sexton M.D. For any questions, please call customer service at FREQUENCY:MONTHLY Resulting Agency Comment Specimen source: Blood Cooper Mena MD LAB BLOOD ORDERABLES Final Re sult Performing Organization Address City/[facility]/ZIP Co de Phone Number [facility] See order comments or contact performing lab Unknown, [place] * (ABNORMAL) [facility] Chemistry (06/25/2024) PTH 2,209(H) 16 - 80 pg/mL [facility] Comment: Verified by repeat analysis. 06/25/2024 06/30/2024 11: 17 AM EST Narrative NICK - 06/30/2024 Unless otherwise specified, test(s) performed at: [facility], [address] [place] [id number] LIGHT CLEANER: Reece Sexton M.D. For any questions, please call customer service at FREQUENCY:MONTHLY Resulting Agency Comment Specimen source: Plasma us Cooper Mena MD LAB BLOOD ORDERABLES Final Re sult [facility] See order comments or contact performing lab Unknown, [place] documented in this encounter Visit Diagnoses Not on filedocumented in this encounter Care Teams Mophead Sewer Relationship Specialty Start Date End Date Medina Ren NP [address] [place] [id number] PCP - General Nurse Practitioner 01/03/21 documented as of this encounter
--- OUTSIDE RECORDS SUMMARY | 2024-07-22 16:25 | XMS_ITS | Encounter Summary ---
Author Organization [facility], Address [address] [place] [address] Phone Care Team Providers Care Rvda Master Certified Rv Technician Name Role Phone Medina Ren TAKE AWAY WORKER Primary Care Provider [phone] Encounter Details Date Type Department Care Team (Late st Contact Info) Description 07/09/2024 Orders Only [facility] [address] [place] [address] Cooper Mena MD [address] [place] [phone] Social History Tobacco Use Types Packs/Day Years [...] Procedure Name Priority Date/Time Associated Diagnosis Comments HEMATOLOGY Routine 07/09/2024 documented in this encounter Results * (ABNORMAL) HEMATOLOGY (07/09/2024) Hemoglobin 10.9(L) 12.0 - 16.0 g/dL [facility] Hemoglobin x 3 32.7(L) 36.0 - 48.0 % [facility] 07/09/2024 07/11/2024 8:2 0 AM EST Narrative NICK - 07/11/2024 Unless otherwise specified, test(s) performed at: [facility], [address] [place], [place] [id number] WAREHOUSE SHIPPING CLERK: Reece Sexton M.D. For any questions, please call customer service at FREQUENCY:OTHER Resulting Agency Comment Specimen source: Blood Cooper Mena MD LAB BLOOD ORDERABLES Final Re sult [facility] See order comments or contact performing lab Unknown, [place] documented in this encounter Visit Diagnoses Not on filedocumented in this encounter Care Teams Rvda Master Certified Rv Technician Relationship Specialty Start Date End Date Medina Ren, TAKE AWAY WORKER [address] [place] [id number] PCP - General Nurse Practitioner 01/03/21 documented as of this encounter
--- OUTSIDE RECORDS SUMMARY | 2024-07-22 16:25 | XMS_ITS | Clinical Summary ---
Author Organization [address] Address [address] [place] [address] Phone Care Team Providers Care Drain Technician Name Role Phone Nicholas Yang MD Primary Care Provider [phone] Allergies Active Allergy Reactions Criticality Noted Date Comments Ibuprofen 10/09/2023 Penicillins 10/09/2023 Medications blood-glucose sensor (FREESTYLE MILIND 3 SENSOR [facility]) 1 Applicator by Does not apply route every 14 days. 4 Active insulin aspart (NovoLOG Flexpen U-100 Insulin) 100 unit/mL (3 mL) injection pen Three times a day before meals up to max of 15 units daily 4 Active albuterol HFA (PROAIR HFA ; PROVENTIL HFA ; VENTOLIN HFA) 90 mcg/actuation inhaler Inhale 2 puffs by mouth every 4 (four) hours if needed. Active montelukast (SINGULAIR) 10 mg tablet Take 1 Tablet by mouth at bedtime. Active traZODone (DESYREL) 300 mg tablet Take 1 Tablet by mouth at bedtime. Active clonazePAM (KlonoPIN) 0.5 mg tablet Take 1 Tablet by mouth 3 times daily. Active atorvastatin (LIPITOR) 80 mg tablet Take 1 tablet (80 mg total) by mouth 1 (one) time each day. Active sevelamer (RENAGEL) 800 mg tablet Take 1 tablet (800 mg total) by mouth 2 (two) times a day. Active aspirin 81 mg chewable tablet Chew 1 tablet (81 mg total) 1 (one) time each day. Active ferrous sulfate 325 mg (65 mg elemental iron) tablet Take 1 tablet (325 mg total) by mouth 1 (one) time each day. Active carvediloL (COREG) 3.125 mg tablet Take 1 Tablet by mouth 2 times daily (with meals) for 180 days. 4 Active insulin degludec (TRESIBA) 100 unit/mL injection Inject into the skin. Active BD Esperanza 2nd Gen Pen Needle 32 gauge x 5/32 needleIndications :Type 1 diabetes mellitus with other specified complication ([facility]) USE 4 NEEDLES WITH INSULIN PENS DIRECTED DAILY 100 each 2 5 Active Active Problems Problem Noted Date Diagnosed Date Ischemic cardiomyopathy 12/07/2023 Overview (03/25/2024): Last Assessment & Plan: Left ventricular systolic function was severely reduced when she was initially hospitalized. Will repeat echocardiogram to see whether there is any recovery of LV systolic function. I will add low-dose carvedilol. If her blood pressure is able to tolerate, will add low-dose Entresto. Noted her potassium was quite elevated a few days ago but she states she missed the dialysis. Acute hypoxic respiratory failure 09/14/2023 Atherosclerotic heart disease 09/14/2023 NSTEMI (non-ST elevated myocardial infarction) 0 09/14/2023 Overview (03/25/2024): Last Assessment & Plan: With three-vessel coronary artery disease and ischemic cardiomyopathy. I do not think PCI is a good idea. So far, she has no angina symptoms. Unfortunately, she is quite adamant that she will not get any care in [facility]. I will try to refer her to Dr. Almanza in [facility] as long as her insurance allowed her. Will continue high-dose statin and aspirin. Will need to repeat lipid profile. Pulmonary edema 09/14/2023 Medical History Medical History Date Comments Volume overload DX:Volume overlo ad Influenza DX:Influenza Hyperglycemia due to diabete s mellitus ([facility]) DX:Hyperglycemia due to diab etes mellitus ([facility]) Social History Tobacco Use Types Packs/Day Years Used Date Smoking Tobacco: Former Smokeless Tobacco: Never Alcohol Use Standard Drinks/Week Comments Not Currently 0 (1 standard drink = 0.6 oz pur e alcohol) Comments Unknown Sex and Gender Information Value Date Recorded Sex Assigned at Female 06/12/2024 8:51 PM EST Legal Sex Female 2:18 PM EST Gender Identity Female 06/12/2024 8:51 PM EST Sexual Orientation Not on file Obstetrics History Last Filed Vital Signs Vital Sign Reading Time Taken Comments Blood Pressure 125/53 02/05/2024 2:13 PM EDT Pulse 87 02/05/2024 2:13 PM EDT Temperature - - Respiratory Rate - - Oxygen Saturation - - Inhaled Oxygen Concentration - - Weight 114 kg (251 lb) 04/01/2024 11:05 AM EDT Height 167.6 cm (5' 6 ) 04/01/2024 11:05 AM EDT Body Mass Index 40.51 04/01/2024 11:05 AM EDT Plan of Treatment Upcoming Encounters Date Type Department Care Team (Late st Contact Info) Description 07/29/2024 4:00 PM EST Office Visit Endocrinology [address] [phone] Perri Loyola MD [address] [place] [address] 09/05/2024 9:20 AM EDT Office Visit [facility] [address] [facility] [address] [place] [phone] Jaylen Davenport MD [address] [facility] [address] [place] [address] Health Maintenance Due Date Last Done Comments Breast Cancer Screening 1981 Diabetes: Annual GFR (Glomer ular Filtration Rate) 1981 DTaP,Tdap,and Td Vaccines (1 - Tdap) 1988 Diabetes: Annual Foot Exam 1991 Diabetes: Annual Retina Eye Exam 1991 Hepatitis B Vaccines (1 of 3 - 19+ 3-dose series) 2000 Pneumococcal Vaccine: Pediat rics (0 to 5 Years) and At-Risk Patients (6 to 64 Years) (1 of 2 - PCV) 2000 Cervical Cancer Screening: P ap Smear 2002 COVID-19 Vaccine ( - 2023-2 5 season) 2024 Influenza Vaccine (#1) 2024 Cholesterol Screening (Lipid Panel) 03/20/2024 Depression Screening 03/20/2024 HIV Screening 03/20/2024 Hepatitis C Screening 03/20/2024 Hypertension/CHF/CAD Annual BMP Blood Test 03/20/2024 Social Influencers of Health Screening 03/20/2024 Diabetes: Annual Urine Albumin-Creatinine Ratio (uACR) 06/13/2024 Diabetes: Blood Sugar Contro l Test (HGBA1C) 06/13/2024 HIB Vaccines Aged Out No longer eligi ble based on patient's age to complete this topic HPV Vaccines Aged Out No longer eligi ble based on patient's age to complete this topic Hepatitis A Vaccines Aged Out No long er eligible based on patient's age to complete this topic IPV Vaccines Aged Out No longer eligi ble based on patient's age to complete this topic MMR Vaccines Aged Out No longer eligi ble based on patient's age to complete this topic Meningococcal ACWY Vaccine Aged Out N o longer eligible based on patient's age to complete this topic Meningococcal B Vacine Aged Out No lo nger eligible based on patient's age to complete this topic RSV Immunization Patients Un chacha 20 months Aged Out No longer eligible b ased on patient's age to complete this topic Varicella Vaccines Aged Out No longer eligible based on patient's age to complete this topic Insurance [place] [address] [address] [address] Member Subscriber Plan / Payer (Ef fective 2022-Present) Name:Phoenix Leach Relation to Subscriber:Self Name:Phoenix Leach Payer ID:[id number] Group ID:[id number] Type:Not on file Address: [place] [address] [address] [phone] Advance Directives Documents on File Type Date Recorded Patient Optical Effects Layout Person Expl [facility] Care Decision (hx) 06/24/2012 AD TOPHER DIRECTIVE Care Teams Drain Technician Relationship Specialty Start Date End Date Nicholas Yang MD [address] [place] [address] Dr Adriana [place] PCP - General 07/31/23
--- OUTSIDE RECORDS SUMMARY | 2024-07-22 16:25 | XMS_ITS ---
Author Name Amparo, Clinic Address [address] [place] [address] Phone [phone] Organization [facility] e, NA DOCUMENT DISCLAIMER Multiple document versions may exist, please be sure you review the latest version. The information in the [facility] Continuity of Care Document represents a summary of certain health and medical information. It may not contain the complete medical history for the patient and should be independently verified. The represented time in the document is Eastern Time. PROBLEMS Problem Code Status Onset Date Other disorders of phosphorus metabolism E83.39 Active June 09, 2024 Hypoglycemia, unspecified E16.2 Active Oc tober 2023 Hyperkalemia E87.5 Active December 07, 2023 Gastro-esophageal reflux dis ease without esophagitis K21.9 Active September 21, 2023 Acute systolic (congestive) heart failure I50.21 Active September 21, 2023 Bipolar disorder, unspecified F31.9 Active September 21, 2023 Type 1 diabetes mellitus without complications E10.9 Active September 21, 2023 Dependence on renal dialysis Z99.2 Active September 21, 2023 Encounter for adequacy testing for hemodialysis Z49.31 Active September 21, 2023 Encounter for fitting and ad justment of extracorporeal dialysis catheter Z49.01 Active September 092023 Encounter for immunization Z23 Active A pril 2023 Encounter for screening for respiratory tuberculosis Z11.1 Active September 21, 2023 Allergy, unspecified, initial encounter T78.40XA A ctive September 21, 2023 Anaphylactic shock, unspecified, initial encounter T78 .2XXA Active September 21, 2023 Pain, unspecified R52 Active September 21, 2023 Headache, unspecified R51.9 Active September 21, 2023 Fever, unspecified R50.9 Active September 21, 2023 Cramp and spasm R25.2 Active September 20 Diarrhea, unspecified R19.7 Active September 21, 2023 Nausea R11.0 Active September 21, 2023 Shortness of breath R06.02 Active September Secondary hyperparathyroidism of renal origin N25.81 Active September 21, 2023 Pruritus, unspecified L29.9 Active September 21, 2023 Hypotension of hemodialysis I95.3 Active September 21, 2023 Angina pectoris, unspecified I20.9 Active September 21, 2023 Other disorders of electroly te and fluid balance, not elsewhere classified E87.8 Active September 21, 2023 Coagulation defect, unspecified D68.9 Active September 21, 2023 Anemia in chronic kidney disease D63.1 Active September 21, 2023 Iron deficiency anemia, unspecified D50.9 Activ e September 21, 2023 Proteinuria, unspecified R80.9 Active Apr il 2023 End stage renal disease N18.6 Active Apri l 2023 Mixed irritable bowel syndrome K58.2 Active September 21, 2023 Other asthma J45.998 Active September 21, 2023 Essential (primary) hypertension I10 Active September 21, 2023 Cauda equina syndrome G83.4 Active September 21, 2023 Generalized anxiety disorder F41.1 Active September 21, 2023 Other specified depressive episodes F32.89 Activ e September 21, 2023 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 Active September 21, 2023 ALLERGIES AND ADVERSE REACTIONS No Known Allergies SOCIAL HISTORY Tobacco Use Status Tobacco Type Unknown if ever consumed tobacco - Caregiver Characteristics No Information Available Characteristics of Home environment No Information Available Gender and Sex Information Gender Identity Sexual Orientation Female Homosexual - lesbian /morrell MEDICATIONS Prescribed Medications for Dialysis Treatments Medication Instructions Dosage Route Start Date End Date Stat Heparin Sodium (Porcine) 1,000 Units/mL Catheter Lock Arterial Post Dialysis, Every Treatment 2000 units Arterial Red Port September 24, 2023 September 22, 2024 Active Heparin Sodium (Porcine) 1,000 Units/mL Catheter Lock Venous Post Dialysis, Every Treatment 2000 units Venous Blue Port September 24, 2023 September 22, 2024 Active Heparin Sodium (Porcine) 1,000 Units/mL Systemic Bolus, Every Treatment, Total treatment minutes 240 5000 units Intravenous - push September 26, 2023 September 24, 2024 Active Iron Sucrose (Venofer) 1X Week 50 mg Intravenous - push July 09, 2024 July 08, 2025 Active Midodrine HCl (Proamatine) PRN-october repeat x1 5 mg Oral January 23, 2024 January 21, 2025 Active Vitamin D (Calcitriol) Oral During Dialysis, Every Treatment 0.5 mcg Oral October 31, 2023 October 29, 2024 Active Iron Sucrose (Venofer) Every Treatment 100 mg Intravenous - push June 16, 2024 July 07, 2024 Discontinued Home Medications Medication Instructions Dosage Route Start Date End Date [facility] albuterol sulfate 90 mcg/actuation Inhale using inhaler every four to six hours as needed 2 puff INHALATION October 08, 2023 Active Aspirin Childrens 81 mg Take by mouth once a day 1 tablet ORAL October 08, 2023 Active atorvastatin 80 mg Take by mouth once a day 1 tablet ORAL December 07, 2023 Active carvedilol 3.125 mg Take by mouth twice a day 1 tablet ORAL January 01, 2024 Active clonazepam 0.5 mg Take by mouth three times a day 1 tablet ORAL October 08, 2023 Active Novolog Mix 70-30FlexPen U-100 100 unit/mL (70-30) Inject as directed SUBCUTANEOUS January 18, 2024 Active Singulair 10 mg Take by mouth once a day 1 tablet ORAL October 08, 2023 Active Sucroferric Oxyhydroxide 500 mg Take By Mouth Every 24 hours With Meals 4 Tablet By Mouth July 18, 2024 June 25, 2025 Active trazodone 150 mg Take by mouth once a day 2 tablet ORAL January 18, 2024 Active Tresiba U-100 Insulin 100 unit/mL Inject subcutaneously once a day 40 unit SUBCUTANEOUS October 08, 2023 Active Auryxia 210 mg iron Take by mouth three times a day with meals 2 tablet ORAL July 04, 2024 Discontinued Sensipar 90 mg Take by mouth once a day 1 tablet ORAL July 14, 2024 Discontinued VITAL SIGNS Post-Treatment Vital Signs Vital Sign Value Date / Time Blood Pressure-sitting 120/64 mmHg July 21, 2024 12:23 PM Blood Pressure-standing 127/68 mmHg July 21, 2024 12:23 PM Heart Rate 81 beats per minute July 21, 2024 12:23 PM Respiratory Rate 16 breaths per minute July 21, 2024 12:23 PM Temperature 98.3 deg. F July 21 12:23 PM Weight Vital Sign Value Date / Time Estimated Dry Weight 110 kg July 09, 2024 11:59 PM Pre-Dialysis 113.60 kg July 21 12:23 PM Post-Dialysis 109.90 kg July 21 12:23 PM Other Other Value Date / Time Height 165 cm September 21, 2023 1 2:00 AM Body Mass Index 40.40 kg/m2 July 14 12:48 PM HEALTH CONCERNS Tuberculosis Testing TST Date Administered TST Date Read TST Result 09/26/2023 09/28/2023 Negative (<5) mm LAB RESULTS Hematology Result Type Result Value Relevant Referen ce Range Interpretation Date UIBC/TIBC 147 mcg/dL 155 - 355 mcg/dL Low January 102023 Ferritin 353 ng/mL 10 - 291 ng/mL High February 01, 2024 Transferrin Sat. (Calc) 28 % 20 - 55 % - February 01, 2024 TIBC (Calc) 204 mcg/dL 185 - 515 mcg/dL - February 01, 2024 Ferritin 369 ng/mL 10 - 291 ng/mL High February 29, 2024 UIBC/TIBC 106 mcg/dL 155 - 355 mcg/dL Low r 2023 TIBC (Calc) 194 mcg/dL 185 - 515 mcg/dL - 2023 Transferrin Sat. (Calc) 45 % 20 - 55 % - February 28 Ferritin 343 ng/mL 10 - 291 ng/mL High March TIBC (Calc) 218 mcg/dL 185 - 515 mcg/dL - March 26, 2024 Transferrin Sat. (Calc) 33 % 20 - 55 % - March 26, 2024 UIBC/TIBC 146 mcg/dL 155 - 355 mcg/dL Low March 26, 2024 WBC (No Diff) 5.51 1000/mcL 4.80 - 10.80 1000/mcL - March 26, 2024 Hemoglobin x 3 34.8 % 36.0 - 48.0 % Low r 2023 Transferrin Sat. (Calc) 39 % 20 - 55 % - April 30 TIBC (Calc) 227 mcg/dL 185 - 515 mcg/dL - 2023 UIBC/TIBC 139 mcg/dL 155 - 355 mcg/dL Low April 30, 2024 Iron 88 mcg/dL 30 - 160 mcg/dL - April 30, 2024 Ferritin 423 ng/mL 10 - 291 ng/mL High April 122023 Hemoglobin x 3 33.6 % 36.0 - 48.0 % Low Novembe r 2023 Hemoglobin x 3 33 % 36.0 - 48.0 % [facility] Hemoglobin x 3 33.3 % 36.0 - 48.0 % Low Decembe r 2023 Hemoglobin x 3 33.3 % 36.0 - 48.0 % Low Decembe r 2023 Transferrin Sat. (Calc) 17 % 20 - 55 % Low June 01 UIBC/TIBC 165 mcg/dL 155 - 355 mcg/dL - June 01, 2024 TIBC (Calc) 199 mcg/dL 185 - 515 mcg/dL - Decembe r 2023 Iron 34 mcg/dL 30 - 160 mcg/dL - June 01, 2024 Hemoglobin x 3 30 % 36.0 - 48.0 % Low Decembe r 2023 Ferritin 291 ng/mL 10 - 291 ng/mL - May 122023 Hemoglobin x 3 33.9 % 36.0 - 48.0 % Low Decembe r 2023 Hemoglobin x 3 30 % 36.0 - 48.0 % Low Decembe r 2023 Hemoglobin x 3 31.8 % 36.0 - 48.0 % Low June 18, 2024 HGB 10.9 g/dL 12.0 - 16.0 g/dL Low June 25, 2024 Hemoglobin x 3 32.7 % 36.0 - 48.0 % Low June 25, 2024 Retic HGB (CHr) 31.1 pg 25.4 - 31.8 pg - 2024 UIBC/TIBC 134 mcg/dL 155 - 355 mcg/dL Low June 25, 2024 TIBC (Calc) 213 mcg/dL 185 - 515 mcg/dL - June 25, 2024 Iron 79 mcg/dL 30 - 160 mcg/dL - June 112024 Transferrin Sat. (Calc) 37 % 20 - 55 % - June 25, 2024 Ferritin 585 ng/mL 10 - 291 ng/mL High June Hemoglobin x 3 32.1 % 36.0 - 48.0 % Low July 02, 2024 HGB 10.7 g/dL 12.0 - 16.0 g/dL Low July 02, 2024 Hemoglobin x 3 32.7 % 36.0 - 48.0 % Low July 09, 2024 HGB 10.9 g/dL 12.0 - 16.0 g/dL Low July 09, 2024 HGB 11.2 g/dL 12.0 - 16.0 g/dL Low July 16, 2024 Hemoglobin x 3 33.6 % 36.0 - 48.0 % Low 2024 Metabolic/Renal Result Type Result Value Relevant Referen ce Range Interpretation Date Hemoglobin A1c 7.1 % 4.8 - 5.9 % High March 112023 BUN 62 mg/dL 6 - 19 mg/dL High April 25, 2024 Potassium 5.3 mEq/L 3.5 - 5.1 mEq/L High April 28, 2024 URR, Calc 66 % 65 - 80 % - April 30, 024 BUN, Post 15 mg/dL 6 - 19 mg/dL - April 30, 2024 Creatinine, Serum 9.82 mg/dL 0.60 - 1.30 mg/dL High April 30, 2024 BUN 44 mg/dL 6 - 19 mg/dL High April 30, 2024 Bicarbonate 24 mEq/L 22 - 29 mEq/L - April 122023 Potassium 4.9 mEq/L 3.5 - 5.1 mEq/L - April 30, 2024 Sodium 143 mEq/L 136 - 145 mEq/L - April 30, 2024 BUN/Creat Ratio 4.5 10.0 - 20.0 Low April 30, 2024 URR, Calc 72 % 65 - 80 % - May 04, 024 BUN, Post 13 mg/dL 6 - 19 mg/dL - May 04, 2024 Potassium 5.0 mEq/L 3.5 - 5.1 mEq/L - May 04, 2024 BUN 46 mg/dL 6 - 19 mg/dL High May 04, 2024 Potassium 5.1 mEq/L 3.5 - 5.1 mEq/L - May 12, 2024 BUN, Post 16 mg/dL 6 - 19 mg/dL - May 14, 2024 BUN 57 mg/dL 6 - 19 mg/dL High May 14, 2024 URR, Calc 72 % 65 - 80 % - May 14 024 Potassium 5.5 mEq/L 3.5 - 5.1 mEq/L High May 19, 2024 Bicarbonate 21 mEq/L 22 - 29 mEq/L Low May 122023 Sodium 136 mEq/L 136 - 145 mEq/L - June 01, 2024 Potassium 5.4 mEq/L 3.5 - 5.1 mEq/L High June 01, 2024 Creatinine, Serum 12.95 mg/dL 0.60 - 1.30 mg/dL High June 01, 2024 Potassium 5.1 mEq/L 3.5 - 5.1 mEq/L - June 08, 2024 BUN, Post 15 mg/dL 6 - 19 mg/dL - June 13, 2024 URR, Calc 70 % 65 - 80 % - June 13 BUN 50 mg/dL 6 - 19 mg/dL High June 13, 2024 Potassium 6.0 mEq/L 3.5 - 5.1 mEq/L High June 112024 Bicarbonate 23 mEq/L 22 - 29 mEq/L - June Sodium 138 mEq/L 136 - 145 mEq/L - June 112024 Creatinine, Serum 10.17 mg/dL 0.60 - 1.30 mg/dL High June 25, 2024 Hemoglobin A1c 7.5 % 4.8 - 5.9 % High June 112024 Potassium 4.9 mEq/L 3.5 - 5.1 mEq/L - June 122024 BUN 63 mg/dL 6 - 19 mg/dL High July 16, 2024 BUN, Post 19 mg/dL 6 - 19 mg/dL - July 16, 2024 URR, Calc 70 % 65 - 80 % - July 16 025 HD Adequacy Result Type Result Value Relevant Referen ce Range Interpretation Date Krt/V 0.00 No Reference Ran ge Provided - February 13, 2024 Krt/V 0.00 No Reference Ran ge Provided - March 12, 2024 Krt/V 0.00 No Reference Ran ge Provided - April 16, 2024 eKt/V ([place]) 1.04 No Reference Range Provided - April 30, 2024 spKt/V (Daugirdas II) 1.21 No Reference Range Provided - April 30, 2024 Krt/V 0.00 No Reference Ran ge Provided - April 30, 2024 wstdKt/V 2.2 No Reference Ran ge Provided - April 30, 2024 wstdKt/V without residual 2.2 No Reference Range Provided - April 30, 2024 wstdKt/V, residual 0.0 No Reference Range Provided - April 30, 2024 spKt/V Gotch 1.22 No Reference Ran ge Provided - April 30, 2024 spKt/V Got 1.54 No Reference Ran ge Provided - May 04, 2024 eKt/V ([place]) 1.29 No Reference Range Provided - May 04, 2024 Krt/V 0.00 No Reference Ran ge Provided - May 04, 2024 wstdKt/V, residual 0.0 No Reference Range Provided - May 04, 2024 wstdKt/V without residual 3.2 No Reference Range Provided - May 04, 2024 spKt/V (Daugirdas II) 1.48 No Reference Range Provided - May 04, 2024 wstdKt/V 3.2 No Reference Ran ge Provided - May 04, 2024 spKt/V (Daugirdas II) 1.49 No Reference Range Provided - May 14, 2024 Krt/V 0.00 No Reference Ran ge Provided - May 14, 2024 wstdKt/V 2.4 No Reference Ran ge Provided - May 14, 2024 wstdKt/V, residual 0.0 No Reference Range Provided - May 14, 2024 spKt/V [facility] 1.55 No Reference Ran ge Provided - May 14, 2024 eKt/V ([place]) 1.30 No Reference Range Provided - May 14, 2024 wstdKt/V without residual 2.4 No Reference Range Provided - May 14, 2024 wstdKt/V without residual 2.4 No Reference Range Provided - June 13, 2024 spKt/V [facility] 1.55 No Reference Ran ge Provided - June 13, 2024 spKt/V (Daugirdas II) 1.46 No Reference Range Provided - June 13, 2024 Krt/V 0.00 No Reference Ran ge Provided - June 13, 2024 wstdKt/V, residual 0.0 No Reference Range Provided - June 13, 2024 wstdKt/V 2.4 No Reference Ran ge Provided - June 13, 2024 eKt/V ([place]) 1.27 No Reference Range Provided - June 13, 2024 wstdKt/V 2.4 No Reference Ran ge Provided - July 16, 2024 eKt/V ([place]) 1.24 No Reference Range Provided - July 16, 2024 spKt/V (Daugirdas II) 1.42 No Reference Range Provided - July 16, 2024 Krt/V 0.00 No Reference Ran ge Provided - July 16, 2024 wstdKt/V, residual 0.0 No Reference Range Provided - July 16, 2024 spKt/V Gotch 1.49 No Reference Ran ge Provided - July 16, 2024 wstdKt/V without residual 2.4 No Reference Range Provided - July 16, 2024 Bone/Mineral Result Type Result Value Relevant Referen ce Range Interpretation Date Vitamin D 25 Hydroxy 15.2 ng/mL 30 - 100 ng/mL Low September 24, 2023 PTH-Intact, Plasma 2217 pg/mL 16 - 80 pg/mL High Jan us2023 PTH-Intact, Plasma 1845 pg/mL 16 - 80 pg/mL High Feb PTH-Intact, Plasma 2712 pg/mL 16 - 80 pg/mL High Mar [email or web address] Corrected Ca x P Product 77 0 - 54 High April 30 4 PTH-Intact, Plasma 1982 pg/mL 16 - 80 pg/mL High Apr Ca x P Product 76 0 - 54 High April 122023 Phosphorus 8.2 mg/dL 2.6 - 4.5 mg/dL High April 30, 2024 Calcium, Total 9.3 mg/dL 8.4 - 10.2 mg/dL - 2023 Corrected Ca x P Product 83 0 - 54 High June 01 PTH-Intact, Plasma 2402 pg/mL 16 - 80 pg/mL High May Phosphorus 10.0 mg/dL 2.6 - 4.5 mg/dL High June 01, 2024 Ca x P Product 80 0 - 54 High May 122023 Calcium, Total 8.0 mg/dL 8.4 - 10.2 mg/dL Low Dece 2023 Ca x P Product 85 0 - 54 High June Alkaline Phosphatase 239 U/L 35 - 104 U/L High Ja nu2024 Calcium, Total 9.1 mg/dL 8.4 - 10.2 mg/dL - Matthieu 2024 Phosphorus 9.3 mg/dL 2.6 - 4.5 mg/dL High June 112024 PTH-Intact, Plasma 2209 pg/mL 16 - 80 pg/mL High Jun Vitamin D 25 Hydroxy 21.0 ng/mL 30.0 - 100.0 ng/mL Low June 25, 2024 Corrected Ca x P Product 86 0 - 54 High June 25, 2024 Phosphorus 8.7 mg/dL 2.6 - 4.5 mg/dL High June 122024 Liver/Nutrition Result Type Result Value Relevant Reference Range Interpre tation eNPCR 0.67 No Reference Ran ge Provided - April 30, 2024 Albumin (BCG) 3.9 g/dL 3.5 - 5.2 g/dL - [facility]2023 Glucose 74 mg/dL 70 - 100 mg/dL - April 122023 SGPT (ALT) 9 U/L 7 - 52 U/L - April 30 024 eNPCR 0.85 No Reference Ran ge Provided - May 04, 2024 eNPCR 0.96 No Reference Ran ge Provided - May 14, 2024 Glucose 73 mg/dL 70 - 100 mg/dL - May 122023 SGPT (ALT) 7 U/L 7 - 52 U/L - June 01 Albumin (BCG) 3.6 g/dL 3.5 - 5.2 g/dL - [facility]2023 eNPCR 0.91 No Reference Ran ge Provided - June 13, 2024 Glucose 83 mg/dL 70 - 100 mg/dL - June Albumin (BCG) 3.9 g/dL 3.5 - 5.2 g/dL - June 25, 2024 SGPT (ALT) 6 U/L 7 - 52 U/L Low June 25 eNPCR 1.03 No Reference Ran ge Provided - July 16, 2024 Immunochemistry Result Type Result Value Relevant Reference Range Interpre tation Date HCV s/co ratio 0.08 0.00 - 0.79 - September 24, 2023 HCV s/co ratio 0.06 0.00 - 0.79 - December 26, 2023 HCV s/co ratio 0.04 0.00 - 0.79 - June 112024 Trace Elements Result Type Result Value Relevant Reference Range Interpre tation Aluminum < 5 mcg/L 0 - 10 mcg/L - September 23 Aluminum < 5 mcg/L 0 - 10 mcg/L - June 25, 2024 Infectious Diseases Result Type Result Value Relevant Referen ce Range Interpretation Date Hep B core Ab Total (anti-HBc) Negative No Reference Range Provided - September 24, 2023 Hep B Surface Ab (anti-HBs) 14 mIU/mL No Reference Range Provided - June 25, 2024 Hep B Surface Ag (HBsAg) Negative No Reference Range Provided - June 25, 2024 HCV Ab (anti-HCV) Nonreactive No Reference R giles Provided - June 25, 2024 DIALYSIS PRESCRIPTION Conventional Hemodialysis Data Element Value Order Date/Time July 09, 2024 Frequency 3X Week Treatment Days MonWedFri Dialyzer [id number] Optiflux Treatment Time (Total Minutes) 240 min Blood Flow Rate (mL/min) 450 mL/min Dialysate Flow Rate Manual 800 Estimated Dry Weight 110 kg Dialysate Concentrate 2.0 K, 2.50 Ca, 1. 0 Mg, 100 Dextrose ([id number]) Sodium (mEq/L) 138 mEq/L Bicarb Machine Setting (mEq/L) 36 mEq/L Dialysis Access Hemodialysis-CV Cath eter-Tunneled, Chest, Right Subclavian IMMUNIZATIONS Vaccine Date Dose Route Status Flu Vaccine - Flucelvax Trivalent March 28, 2024 0.5 mL Intramuscular Completed PREVNAR March 21, 2024 0.5 mL Intramuscular Compl eted HEPLISAV-B, Series 4 of 4 February 29, 2024 In tramuscular Completed HEPLISAV-B, Series 3 of 4 December 26, 2023 20.0 mcg Intramu scular Completed HEPLISAV-B, Series 2 of 4 November 30, 2023 20.0 mcg Intramu scular Completed HEPLISAV-B, Series 1 of 4 October 24, 2023 20.0 mcg Intramus cular Completed TRANSPLANT WAITLIST STATUS No Information on Transplant Waitlist Status ADVANCE DIRECTIVES Directive Description Ordered By Effective Date Resuscitation status Full Code Cooper Silverion Sep 24, 2023 DIALYSIS TREATMENTS Conventional Hemodialysis Date Pre-Treatment Vitals Post-Treatment Josefina ls Duration (hr) BFR (mL/min) Dialysate Dialyzer Dialysis Access Meds Admin 2024 Weight 112.20 kg Weight 108.80 kg 04:03:00 370 2.0 K, 2.50 Ca, 1.0 Mg, 100 Dextrose ([id number]) 160nre Optifl ux Blood Pressure-sitting 108/58 mmHg Blood Pressure-sit ting 107/55 mmHg Blood Pressure-standing 124/63 mmHg Blood Pressure-st anding 112/65 mmHg Heart Rate 90 beats per minute Heart Rate 88 beats per minute Respiratory Rate 16 breaths per minute Respiratory Rate 16 breaths per minute Temperature 96.6 deg. F Temperature 96.0 deg. F July 18, 2024 Weight 111.40 kg Weight 108.50 kg 04:04:00 370 2.0 K, 2.50 Ca, 1.0 Mg, 100 Dextrose ([id number]) 160nre Optiflux Hemodialysis-CV Catheter-Tunneled, Chest, Right Subclavian Heparin Sodium (Porcine) 1,000 Units/mL Catheter Lock Arterial; 2000units,Arterial Red Port Heparin Sodium (Porcine) 1,000 Units/mL Catheter Lock Venous; 2000units,Venous Blue Port Heparin Sodium (Porcine) 1,000 Units/mL Systemic; 5000units,Intravenous - push Vitamin D (Calcitriol) Oral; 0.5mcg,Oral Blood Pressure-sitting 126/62 mmHg Blood Pressure-sit ting 135/70 mmHg Blood Pressure-standing 123/64 mmHg Blood Pressure-st anding 136/73 mmHg Heart Rate 104 beats per minute Heart Rate 71 beats per minute Respiratory Rate 16 breaths per minute Respiratory Rate 18 breaths per minute Temperature 96.6 deg. F Temperature 97.8 deg. F July 21, 2024 Weight 113.60 kg Weight 109.90 kg 04:00:00 450 2.0 K, 2.50 Ca, 1.0 Mg, 100 Dextrose ([id number]) 160nre Optiflux Hemodialysis-CV Catheter-Tunneled, Chest, Right Subclavian Heparin Sodium (Porcine) 1,000 Units/mL Catheter Lock Arterial; 2000units,Arterial Red [place] Heparin Sodium (Porcine) 1,000 Units/mL Catheter Lock Venous; 2000units,Venous Blue Port Heparin Sodium (Porcine) 1,000 Units/mL Systemic; 5000units,Intravenous - push Vitamin D (Calcitriol) Oral; 0.5mcg,Oral Blood Pressure-sitting 165/85 mmHg Blood Pressure-sit ting 120/64 mmHg Blood Pressure-standing 148/79 mmHg Blood Pressure-st anding 127/68 mmHg Heart Rate 116 beats per minute Heart Rate 81 beats per minute Respiratory Rate 16 breaths per minute Respiratory Rate 16 breaths per minute Temperature 96.0 deg. F Temperature 98.3 deg. F
--- OUTSIDE RECORDS SUMMARY | 2024-07-22 16:25 | XMS_ITS | Encounter Summary ---
Author Organization [facility] Address [address] [facility] [address] [place] [address] Phone Care Team Providers Care Professor Of Political Science Name Role Phone Medina Ren FINANCIAL ADMINISTRATION OFFICER Primary Care Provider [phone] Encounter Details Date Type Department Care Team ([facility] st Contact Info) Description 01/02/2022 Office Communication [facility] [address] [facility] [address] [place] [id number] Jihan Wilburn, [place] [address] [place] [address] [place] [phone] Social History Tobacco Use Types Packs/Day Years [...] on file documented as of this encounter Visit Diagnoses Not on filedocumented in this encounter Care Teams Professor Of Political Science Relationship Specialty Start Date End Date Medina Ren NP [address] [place] [address] [phone] PCP - General Nurse Practitioner 01/03/21 documented as of this encounter
--- OUTSIDE RECORDS SUMMARY | 2024-07-22 16:25 | XMS_ITS | Clinical Summary ---
Author Organization [facility] Address [address] [place] [address] Phone Care Team Providers Care Gas Reverser Name Role Phone Medina Ren NP Primary Care Provider [phone] Allergies Active Allergy Reactions Criticality Noted Date Comments Penicillins High 11/27/2023 I go insane Medications atorvastatin (Lipitor) 20 MG tablet Take 1 tablet by mouth 1 (one) time each day Active traZODone (DESYREL) 150 MG tablet Take 1 tablet by mouth at bed time Active clonazePAM (KlonoPIN) 0.5 MG tablet Take 0.5 mg by mouth 2 (two) times a day 09/02/2020 Active Ventolin HFA 108 (90 Base) MCG/ACT inhaler 06/09/2021 Act nae HumaLOG 100 UNIT/ML injection 06/18/2021 Active montelukast (Singulair) 10 MG tablet Take 10 mg by mouth 03/06/2018 Active sevelamer carbonate (RENVELA) 800 MG tablet TAKE 1 TABLET BY MOUTH THREE TIMES A DAY 270 tablet 1 10/09/2022 Active ergocalciferol 1.25 MG (55116 UT) capsule TAKE 1 CAPSULE BY MOUTH ONCE A WEEK 12 capsule 3 12/13/2022 Active metOLazone 2.5 MG tablet TAKE 1 TABLET BY MOUTH 3 TIMES A WEEK 36 tablet 3 04/04/2023 Active Insulin Degludec (Tresiba) 100 UNIT/ML solution Inject under the skin Active Active Problems Problem Noted Date Diagnosed Date Stage 5 chronic kidney disease 06/22/2021 Gastroparesis 05/04/2021 Overview (05/30/2021): Last Assessment & Plan: - does not have evidence of ileus or obstruction - would give renally doses metoclopramide IV and monitor for side effects - using IV morphine sparingly d/t concern that it will contribute to decrease bowel motility - cannot use ketorolac d/t renal disease - can also use acetaminophen for pain - start ppi Leukocytosis 05/04/2021 Overview (05/30/2021): Last Assessment & Plan: - resolved without antibiotic and no fevers, cont to monitor but would avoid antibiotic for now Metabolic acidosis, increased anion gap (IAG) Chronic kidney disease, stage 4 (severe) Chronic kidney disease, stage 4 (severe) 021 Stage 3b chronic kidney disease 10/25/2020 Type 1 diabetes mellitus wit h diabetic chronic kidney disease 10/25/2020 Renal osteodystrophy 10/25/2020 Proteinuria 08/31/2020 Anxiety 11/17/2018 Hyperlipidemia 11/17/2018 Renal failure syndrome 11/17/2018 Overview (05/30/2021): Last Assessment & Plan: - appears ckd has been progressing Creatinine was 1.7 in July, 3.1 in November, 3.3 in January - here creatinine peaked at 5 - has mild metabolic acidosis - seen by nephrology, Dr. Rangel - recommended stop IVF - cont holding losartan - cont her home medications which include amlodipine and verapamil - add hydralazine for hypertension - likely resume diuretic soon - felt outpatient nephrology can manage her renal disease -Plan to remove Valiente in the morning - echo today reassuring - showed normal ejection fraction and no significant valvular dz Essential hypertension 10/15/2018 Resolved Problems Problem Noted Date Diagnosed Date Resolved Date Chronic kidney disease stage 3 08/31/2020 01/03/2021 Renal disorder due to type 2 diabetes mellitus 08/31/2020 01/03/2021 Renal disorder due to type 1 diabetes mellitus 08/31/2020 01/03/2021 Cauda equina syndrome 07/23/20182020 Disorder of kidney 07/23/2018 Intentional drug overdose 11/02/2017 Overview (08/31/2020): Last Assessment & Plan: Poison control was contacted from the emergency room. Their recommendation was for close observation and treatment of hypoglycemia until she has had greater than 2 hours of stable blood sugars without any intervention. Recommendation was also for following mental status for excess sedation due to benzodiazepine overdose. --Check blood sugars hourly, titrate D10W to maintain a blood sugar greater than 70. --D50 bolus prn --Monitor mental status. Patient appears to be able to protect her airway currently though could very well deteriorate and require intubation due to the large amount of benzo ingested. Would avoid flumazenil d/t the risk of precipitating a withdrawal seizure. --Once medically stable we'll consult behavioral health for evaluation and inpatient psychiatric hospitalization. --Maintain one-to-one observation do to ongoing depression and suicidality. Last Assessment & Plan: Poison control was contacted from the emergency room. Their recommendation was for close observation and treatment of hypoglycemia until she has had greater than 2 hours of stable blood sugars without any intervention. Recommendation was also for following mental status for excess sedation due to benzodiazepine overdose. --Check blood sugars hourly, titrate D10W to maintain a blood sugar greater than 70. --D50 bolus prn --Monitor mental status. Patient appears to be able to protect her airway currently though could very well deteriorate and require intubation due to the large amount of benzo ingested. Would avoid flumazenil d/t the risk of precipitating a withdrawal seizure. --Once medically stable we'll consult behavioral health for evaluation and inpatient psychiatric hospitalization. --Maintain one-to-one observation do to ongoing depression and suicidality. Secondary hypertension 11/02/201701/03 Overview (08/31/2020): Last Assessment & Plan: C/w usual Amlodipine and Losartan. If unable to take po will use IV hydralazine. Type 1 diabetes mellitus 11/02/2017 Overview (08/31/2020): Last Assessment & Plan: Monitoring blood sugars closely as above. Will need to restart on her home regimen once her blood sugars have stabilized. We'll follow her BMP regularly and replete electrolytes as needed. CARE AT [facility] Last Assessment & Plan: Monitoring blood sugars closely as above. Will need to restart on her home regimen once her blood sugars have stabilized. We'll follow her BMP regularly and replete electrolytes as needed. Type 1 diabetes mellitus 11/02/2017 Overview (10/25/2020): CARE AT [facility] Last Assessment & Plan: Monitoring blood sugars closely as above. Will need to restart on her home regimen once her blood sugars have stabilized. We'll follow her BMP regularly and replete electrolytes as needed. Intentional drug overdose 11/02/2017 Overview (10/25/2020): Last Assessment & Plan: Poison control was contacted from the emergency room. Their recommendation was for close observation and treatment of hypoglycemia until she has had greater than 2 hours of stable blood sugars without any intervention. Recommendation was also for following mental status for excess sedation due to benzodiazepine overdose. --Check blood sugars hourly, titrate D10W to maintain a blood sugar greater than 70. --D50 bolus prn --Monitor mental status. Patient appears to be able to protect her airway currently though could very well deteriorate and require intubation due to the large amount of benzo ingested. Would avoid flumazenil d/t the risk of precipitating a withdrawal seizure. --Once medically stable we'll consult behavioral health for evaluation and inpatient psychiatric hospitalization. --Maintain one-to-one observation do to ongoing depression and suicidality. Encounters Date Type Department Care Team Description 07/16/2024 Orders Only [facility] [address] [place] [address] Cooper Mena MD 07/09/2024 Orders Only [facility] [address] [address] Cooper Mena MD 07/02/2024 Orders Only [facility] [address] [address] Cooper Mena MD 06/25/2024 Orders Only [facility] [address] [address] Cooper Mena MD 06/18/2024 Orders Only [facility] [address] [address] Cooper Mena MD 06/10/2024 Orders Only [facility] [address] [address] Cooper Mena MD 06/03/2024 Orders Only [facility] [address] [address] Cooper Mena MD 06/01/2024 Orders Only [facility] [address] [address] Cooper Mena MD 05/21/2024 Orders Only [facility] [address] [address] Cooper Mena MD 05/14/2024 Orders Only [facility] [address] [address] Cooper Mena MD 05/06/2024 Orders Only [facility] [address] [address] Cooper Mena MD 04/30/2024 Orders Only [facility] [address] [address] Cooper Mena MD 04/23/2024 Orders Only [facility] [address] [address] Cooper Mena MD from Last 3 Months Immunizations Name Administration Dates Next Due Influenza, Quadrivalent, Preservative Free 07/23 Pneumococcal Polysaccharide 07/23/2018 Tdap 07/23/2018 Family History Medical History Relation Comments Diabetes Father Hypertension Father Relation Status Comments Father Social History Tobacco Use Types Packs/Day Years [...] on file Sexual Orientation Not on file Last Filed Vital Signs Vital Sign Reading Time Taken Comments Blood Pressure 121/73 11/27/2023 10:21 AM EDT Pulse 88 11/27/2023 10:21 AM EDT Temperature 36.3 ??C (97.3 ??F) 11/27/2023 10:21 AM E DT Respiratory Rate - - Oxygen Saturation 94% 11/27/2023 10:21 AM EDT Inhaled Oxygen Concentration - - Weight 116 kg (256 lb 9.9 oz) 11/27/2023 10:21 A M EDT Height 167.6 cm (5' 6 ) 11/27/2023 10:21 AM EDT Body Mass Index 41.42 11/27/2023 10:21 AM EDT Plan of Treatment Health Maintenance Due Date Last Done Comments Hepatitis B Vaccine (1 of 3 - 19+ 3-dose series) 2000 01/17/2016, 12/16/2015, 11/25/2012, Additional history exists Pneumococcal Vaccine: Pediat rics (0 to 5 Years) and At-Risk Patients (6 to 64 Years) (3 of 3 - PCV) 07/23/2019 07/23/2018, 12/19/2016 Diabetes: Ophthalmology Exam 07/09/2020 Diabetes: Pedal Pulse Checked 07/09/2020 Diabetes: Sensory Foot Exam 07/09/2020 Diabetes: Visual Foot Exam 07/09/2020 Influenza Vaccine (#1) 2024 06/05/2021, 2018 Diabetes: Hemoglobin A1C 09/23/202406/25/ 025, 03/26/2024, 12/26/2023, Additional history exists Procedures Procedure Name Priority Date/Time Associated Diagnosis Comments HD KINETICS Routine 07/16/2024 POST CHEMISTRY Routine 07/16/2024 CHEMISTRY Routine 07/16/2024 HEMATOLOGY Routine 07/16/2024 HEMATOLOGY Routine 07/09/2024 HEMATOLOGY Routine 07/02/2024 SPECIAL CHEMISTRY Routine 06/25/2024 TRACE ELEMENTS Routine 06/25/2024 IMMUNO CHEMISTRY Routine 06/25/2024 SPECIAL CHEMISTRY Routine 06/25/2024 CHEMISTRY Routine 06/25/2024 HEMATOLOGY Routine 06/25/2024 CHEMISTRY Routine 06/25/2024 HEMATOLOGY Routine 06/18/2024 HEMATOLOGY Routine 06/10/2024 HEMATOLOGY Routine 06/03/2024 IMMUNO CHEMISTRY Routine 06/01/2024 HEMATOLOGY Routine 06/01/2024 CHEMISTRY Routine 06/01/2024 CHEMISTRY Routine 06/01/2024 HEMATOLOGY Routine 05/21/2024 HD KINETICS Routine 05/14/2024 POST CHEMISTRY Routine 05/14/2024 CHEMISTRY Routine 05/14/2024 HEMATOLOGY Routine 05/14/2024 HEMATOLOGY Routine 05/06/2024 CHEMISTRY Routine 04/30/2024 IMMUNO CHEMISTRY Routine 04/30/2024 CHEMISTRY Routine 04/30/2024 HEMATOLOGY Routine 04/30/2024 HEMATOLOGY Routine 04/23/2024 from Last 3 Months Results * HD KINETICS (07/16/2024) Only the most recent of2 resultswithin the time period is included. % Urea Reduction 70 65 - 80 % [facility] 07/16/2024 2024 2:0 0 PM EST Narrative Resulting Agency Comment Specimen source: Plasma Cooper Mena MD LAB BLOOD ORDERABLES Final Re sult Performing Organization Address [facility] de Phone Number [facility] See order comments or contact performing lab Unknown, [place] * POST CHEMISTRY (07/16/2024) Only the most recent of2 resultswithin the time period is included. BUN Post Dialysis 19 6 - 19 mg/dL [facility] 07/16/2024 2024 2:0 0 PM EST Narrative [facility] - 2024 Unless otherwise specified, test(s) performed at: [facility], [address] [place] [id number] BUCKLE STRINGER: Reece Sexton M.D. For any questions, please call customer service at FREQUENCY:OTHER Resulting Agency Comment Specimen source: Plasma Cooper Mena MD LAB BLOOD ORDERABLES Final Re sult Performing Organization Address [facility] Co de Phone Number [facility] See order comments or contact performing lab Unknown, [place] * (ABNORMAL) HEMATOLOGY (07/16/2024) Only the most recent of13 resultswithin the time period is included. Hemoglobin 11.2(L) 12.0 - 16.0 g/dL [facility] Hemoglobin x 3 33.6(L) 36.0 - 48.0 % [facility] 07/16/2024 07/18/2024 8:5 0 AM EST Narrative [facility] - 07/18/2024 Unless otherwise specified, test(s) performed at: [facility], [address] [place] [address] BUCKLE STRINGER: Reece Sexton M.D. For any questions, please call customer service at FREQUENCY:OTHER Resulting Agency Comment Specimen source: Blood Cooper Mena MD LAB BLOOD ORDERABLES Final Re sult Performing Organization Address [facility] de Phone Number [employer] [facility] See order comments or contact performing lab Unknown, [place] * (ABNORMAL) [facility] (07/16/2024) Only the most recent of8 resultswithin the time period is included. Pathologist [facility] BUN 63(H) 6 - 19 mg/dL [facility] 07/16/2024 07/18/2024 9:0 6 AM EST Narrative [facility] - 07/18/2024 Unless otherwise specified, test(s) performed at: [facility], [address] [place] [id number] BUCKLE STRINGER: Reece Sexton M.D. For any questions, please call customer service at FREQUENCY:OTHER Resulting Agency Comment Specimen source: Serum Cooper Mena MD LAB BLOOD ORDERABLES Final Re sult Performing Organization Address [facility] de Phone Number [facility] See order comments or contact performing lab Unknown, [place] * (ABNORMAL) SPECIAL CHEMISTRY (06/25/2024) Only the most recent of2 resultswithin the time period is included. Hemoglobin A1C 7.5(H) 4.8 - 5.9 % [facility] 06/25/2024 06/30/2024 11: 12 AM EST Rafi ROMERO - 06/30/2024 Unless otherwise specified, test(s) performed at: [facility], [address] [place] [id number] BUCKLE STRINGER: Reece Sexton M.D. For any questions, please call customer service at FREQUENCY:MONTHLY Resulting Agency Comment Specimen source: Blood Cooper Mena MD LAB BLOOD BANK TEST ORDERABLE S Final Result [facility] See order comments or contact performing lab [facility], [place] * IMMUNO CHEMISTRY (06/25/2024) Only the most recent of3 resultswithin the time period is included. Pathologist [facility] Hep B Surface Ag Negative Negative [facility] Hepatitis B Surface Ab 14 mIU/mL [facility] Comment: The anti-HBs (Hepatitis B surface antibody) is greater than or equal to 10 mIU/mL and implies immunity. The patient has either had an antibody response to HBV vaccination, received a transfusion, or has recovered from HBV infection. For post-vaccination antibody testing guidelines for the general public, refer to MMWR June 02, 2005/Vol.54 (No. 16); 1-23, and for healthcare workers, refer to MMWR May 30, 2013/Vol.62 (No. 10); 1-18. Reference Range: <10 mIU/mL ? Non-Immune >=10 mIU/mL ?Immune The magnitude of the measured result above 10 mIU/mL is not indicative of the total amount of antibody present. Verified by repeat analysis. Hepatitis C Antibody Nonreactive Nonreactive [facility] Comment: No HCV antibody detected. The above test result was obtained using Siemens Adcrowd retargetingaur XP chemiluminescent method. Results obtained with different assay methods or kits cannot be used interchangeably. S/CO Ratio 0.04 0.00 - 0.79 [facility] Comment: s/co ratio ?Interpretation ?Supplemental testing <0.80 ? Nonreactive ? No further testing required. 0.80-0.99 ? Equivocal ? HCV RNA Quantitative Real-Time PCR is recommended. 1.00->11.00 ?? Reactive ?HCV RNA Quantitative Real-Time PCR is recommended to distinguish active from resolved cases. 06/25/2024 06/30/2024 11: 06 AM EST Narrative [facility] - 06/30/2024 Unless otherwise specified, test(s) performed at: [facility], [address] [place] [id number] BUCKLE STRINGER: Reece Sexton M.D. For any questions, please call customer service at FREQUENCY:MONTHLY Resulting Agency Comment Specimen source: Serum Cooper Mena MD LAB BLOOD ORDERABLES Final Re sult Performing Organization Address [facility] de Phone Number [employer] See order comments or contact performing lab Unknown, [place] * TRACE ELEMENTS (06/25/2024) Aluminum <5 0 - 10 mcg/L [facility] Comment: This test was developed and its performance characteristics determined by [facility]. It has not been cleared or approved by the FDA. The laboratory is regulated under CLIA as qualified to perform high complexity testing. This test is used for clinical purposes. It should not be regarded as investigational or for research. 06/25/2024 06/30/2024 11: 11 AM EST Narrative [facility] - 06/30/2024 Unless otherwise specified, test(s) performed at: [facility], [address] [place] [id number] BUCKLE STRINGER: Reece Sexton M.D. For any questions, please call customer service at FREQUENCY:MONTHLY Resulting Agency Comment Specimen source: Serum Cooper Mena MD LAB BLOOD ORDERABLES Final Re sult Performing Organization Address [facility]/ZIP Co de Phone Number [facility] See order comments or contact performing lab Unknown, [place] from Last 3 Months Insurance [facility] ([id number]) [facility] DUAL [facility] ([id number]) Care Teams Gas Reverser Relationship Specialty Start Date End Date Medina Ren [employer] [address] [place] [address] [id number] PCP - General Nurse Practitioner 01/03/21
--- OUTSIDE RECORDS SUMMARY | 2024-07-22 16:25 | XMS_ITS | Clinical Summary ---
Author Organization [facility] Address [address] [place] [address] Care Team Providers Care Religious Educator Name Role Phone Medina Ren NP Primary Care Provider [phone] Allergies No known active allergies Medications Medication Sig Dispensed Refills Start Date End Date Status atorvastatin (LIPITOR) 40 MG tablet Take 1 tablet (40 mg total) by mouth nightly. 06/23/2022 Active losartan (COZAAR) 100 MG tablet Take 1 tablet (100 mg total) by mouth daily. 07/26/2022 Active montelukast (SINGULAIR) 10 MG tablet Take 1 tablet (10 mg total) by mouth nightly. 06/23/2022 Active OMEprazole (PriLOSEC) 40 MG capsule Take 1 capsule (40 mg total) by mouth every morning before breakfast. 06/23/2022 Active sevelamer carbonate (RENVELA) 800 MG tablet Take 1 tablet (800 mg total) by mouth 3 (three) times a day. 01/16/2022 Active amLODIPine (NORVASC) 10 MG tablet Take 1 tablet (10 mg total) by mouth daily. 07/26/2022 Active verapamil (VERELAN PM) 120 MG 24 hr capsule Take 1 capsule (120 mg total) by mouth nightly. Active traZODone (DESYREL) 150 MG tablet Take 1 tablet (150 mg total) by mouth nightly. 07/02/2022 Active buPROPion (WELLBUTRIN XL) 300 MG 24 hr tablet Take 1 tablet (300 mg total) by mouth every morning. 08/14/2022 Active clonazePAM (KlonoPIN) 0.5 MG tablet Take 1 tablet (0.5 mg total) by mouth 2 (two) times a day as needed. For Anxiety 08/02/2022 Active insulin aspart (NovoLOG FlexPen) 100 UNIT/ML prefilled pen injection Inject under the skin 3 (three) times a day before meals. 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 Increase as your blood sugars increase 9 mL 09/05/2022 Active albuterol (PROVENTIL HFA; VENTOLIN HFA) 108 (90 Base) MCG/ACT inhalerIndications:M ild intermittent asthma, unspecified whether complicated Inhale 2 puffs every 4 (four) hours as needed for wheezing or shortness of breath. 1 each 1 09/05/2022 Active acetaminophen (TYLENOL) 325 MG tabletIndications:Ba ck pain Take 3 tablets (975 mg total) by mouth every 4 (four) hours as needed for mild pain, headaches or fever. 360 tablet 09/05/2022 Active carvedilol (COREG) 3.125 MG tabletIndications:Es sential hypertension Take 1 tablet (3.125 mg total) by mouth 2 (two) times a day with meals. 60 tablet 1 09/05/2022 Active senna-docusate (SENNA-S) 8.6-50 MGIndications:Consti pation, unspecified constipation type Take 2 tablets by mouth nightly. 60 tablet 09/05/2022 Active polyethylene glycol (miraLAx) 17 g packetIndications:Co nstipation, unspecified constipation type Take 1 packet (17 g total) by mouth daily as needed for constipation. 14 packet 09/05/2022 Active HYDROmorphone (DILAUDID) 2 MG tabletIndications:Ba ck pain Take 1-2 tablets (2-4 mg total) by mouth 4 times daily (every 6 hours) as needed. Max 6 tabs daily. 42 tablet 09/05/2022 Active Active Problems Problem Noted Date Diagnosed Date Back pain of thoracolumbar region 09/01/2022 Degeneration of intervertebral disc of lumbar re gion 09/01/2022 Diabetes mellitus treated with insulin Diabetic nephropathy associa regine with type 2 diabetes mellitus 09/01/2022 ESRD (end stage renal disease) 09/01/2022 Mild intermittent asthma 09/01/2022 Type 1 diabetes mellitus wit h diabetic chronic kidney disease 10/25/2020 Anxiety disorder 11/17/2018 Hyperlipidemia 11/17/2018 Essential hypertension 10/15/2018 Social History Tobacco Use Types Packs/Day Years Used Date Smoking Tobacco: Never Assessed Hunger Vital Sign Answer Date Recorded Within the past 12 months, y ou worried that your food would run out before you got the money to buy more. Never true 09/04/19 Ran Out of Food in the Last Year Not on file 09/03/2022 PRAPARE - Transportation Answer Date Re corded In the past 12 months, has l ack of transportation kept you from medical appointments or from getting medications? No 09/03/2022 Lack of Transportation (Non-Medical) Not on file 09/03/2022 Housing Stability Vital Sign Answer Noman e Recorded Unable to Pay for Housing in the Last Year Not o n file 09/03/2022 In the last 12 months, how many places have you lived? 1 09/03/2022 In the last 12 months, was t here a time when you did not have a steady place to sleep or slept in a snf (including now)? No 09/03/2022 Sex and Gender Information Value Date Recorded Sex Assigned at Female 08/31/2022 8:50 PM EDT Gender Identity Female 08/31/2022 8:50 PM EDT Sexual Orientation Homosexual (lesbian or morrell) 0 09/02/2022 10:23 PM EDT Last Filed Vital Signs Vital Sign Reading Time Taken Comments Blood Pressure 148/66 09/05/2022 3:50 PM EDT Pulse 70 09/05/2022 3:50 PM EDT Temperature 36.9 ??C (98.4 ??F) 09/05/2022 3:50 PM ED T Respiratory Rate 20 09/05/2022 3:50 PM EDT Oxygen Saturation 97% 09/05/2022 3:50 PM EDT Inhaled Oxygen Concentration - - Weight 143 kg (316 lb 2.2 oz) 09/01/2022 1:29 PM EDT Height - - Body Mass Index - - Plan of Treatment Health Maintenance Due Date Last Done Comments Hepatitis C Virus Screening 1981 Foot Exam 1991 Lipid Panel 1991 Ophthalmology Exam 1991 HIV Screening 1994 DTaP/Tdap/Td Vaccines (1 - Tdap) 2000 Hepatitis B Vaccines (1 of 3 - 19+ 3-dose series) 2000 Pneumococcal Vaccine: Pediatric (0-5 Years) and At-Risk Patients (6 to 49 Years) (1 of 2 - PCV) 2000 Pap Smear (Ages 21-65) 2002 Mammogram 2021 Hemoglobin A1C 03/04/2023 09/01/2022 Creatinine with GFR 09/06/2023 09/05/2022, 09/04/2022, 09/03/2022, Additional history exists Influenza Vaccine 01/10/2024 06/05/2021, 07/23/2018 COVID-19 Vaccine (2023- season) 2024 HPV Vaccines Aged Out No longer eligi ble based on patient's age to complete this topic Procedures Procedure Name Priority Date/Time Associated Diagnosis Comments BASIC METABOLIC PANEL Routine 09/05/2022 7:48 AM EDT HEMOGLOBIN A1C WITH ESTIMATED AVERAGE GLUCOSE STAT 09/01/2022 6:06 AM EDT from Last 3 Months or Most Recently Relevant to Health Maintenance Results * (ABNORMAL) BASIC METABOLIC PANEL (09/05/2022 7:48 AM EDT) Glucose 150(H) 65 - 99 mg/dL 09/05/2022 8:57 AM [facility] Comment:Fasting: <100 mg/dL, Non-Fasting: <200 mg/dL (ADA 2005) Blood Urea Nitrogen (BUN) 66(H) 8 - 21 mg/dL 09/05/2022 8:57 AM [facility] Creatinine 9.8(H) 0.4 - 1.1 mg/dL 09/05/2022 8:57 AM [facility] eGFR 5(L) >59 09/05/2022 8:57 AM [facility] Comment: CKD-EPI (2021) in mL/min/1.73 sq meters. Reported eGFR is based on the CKD-EPI equation that does not use a race coefficient as of 08/15/2022 Sodium 139 136 - 145 mmol/L 09/05/2022 8:57 AM [facility] Potassium 4.5 3.4 - 5.3 mmol/L 09/05/2022 8:57 AM [facility] Chloride 98 98 - 107 mmol/L 09/05/2022 8:57 AM [facility] CO2 20(L) 22 - 33 mmol/L 09/05/2022 8:57 AM [facility] Anion Gap 21(H) 7 - 17 09/05/2022 8:57 AM [facility] Calcium 9.4 8.7 - 10.5 mg/dL 09/05/2022 8:57 AM [facility] BUN/Creatinine Ratio 7(L) 10.0 - 25.0 Ratio 09/05/2022 8:57 AM [facility] Blood specimen (specimen) (Plasma/Serum) 09/05/2022 7:48 AM EDT 09/05/2022 8:28 AM EDT September Asaf DO LAB BLOOD ORDERABLES HOSPITAL LAB See Below [address] [address] * (ABNORMAL) Hemoglobin A1c with Estimated Average Glucose (09/01/2022 6:06 AM EDT) Hemoglobin A1C 6.5(H) <5.7 % 09/01/2022 8:23 AM [facility] Comment: A1c% ? Interpretation 5.7 - 6.0 ?Increase risk of diabetes 6.1 - 6.4 ?Higher risk of diabetes > or = 6.5 ?? Consistent with diabetes Diabetes Care, 33(Supp 1):S1-S61, 2010 Estimated Average Glucose 140 mg/dL 09/01/2022 8:23 AM [facility] Blood specimen (specimen) Blood specimen / Unknown 09/01/2022 6:06 AM EDT 09/01/2022 6:11 AM EDT Janice Smalls MD LAB BLOOD ORDERABLES HOSPITAL LAB See Below [place] [address] [place] [address] from Last 3 Months or Most Recently Relevant to Health Maintenance Advance Directives * Full Code (Latest Code Status on File) Date Activated Date Inactivated Comments 09/01/2022 4:52 AM Care Teams Religious Educator Relationship Specialty Start Date End Date Medina Ren NP [address] [place] [address] PCP - General Family Medicine 08/31/22
--- OUTSIDE RECORDS SUMMARY | 2024-07-22 16:25 | XMS_ITS | Encounter Summary ---
Author Organization [facility], Address [address] [place] [address] Phone Care Team Providers Care Venetian Blind Mechanic Name Role Phone Medina Ren NP Primary Care Provider [phone] Encounter Details Date Type Department Care Team (Late st Contact Info) Description 07/16/2024 Orders Only [facility] [address] [place] [address] Cooper Mena MD [address] [place] [phone] Social History Tobacco Use Types Packs/Day Years [...] KINETICS Routine 07/16/2024 POST CHEMISTRY Routine 07/16/2024 HEMATOLOGY Routine 07/16/2024 CHEMISTRY Routine 07/16/2024 documented in this encounter Results * HD KINETICS (07/16/2024) % Urea Reduction 70 65 - 80 % [facility] 07/16/2024 2024 2:0 0 PM EST Narrative Resulting Agency Comment Specimen source: Plasma Cooper Mena MD LAB BLOOD ORDERABLES Final Re sult Performing Organization Address [facility] de Phone Number [facility] See order comments or contact performing lab Unknown, [place] * POST CHEMISTRY (07/16/2024) BUN Post Dialysis 19 6 - 19 mg/dL [facility] 07/16/2024 2024 2:0 0 PM EST Narrative [facility] - 2024 Unless otherwise specified, test(s) performed at: [facility], [address] [place], [place] [id number] SOFTWARE TEST DEVELOPER: Reece Sexton M.D. For any questions, please call customer service at FREQUENCY:OTHER Resulting Agency Comment Specimen source: Plasma Cooper Mena MD LAB BLOOD ORDERABLES Final Re sult Performing Organization Address [facility] Phone Number [facility] See order comments or contact performing lab Unknown, [place] * (ABNORMAL) [facility] (07/16/2024) BUN 63(H) 6 - 19 mg/dL [facility] 07/16/2024 07/18/2024 9:0 6 AM EST Narrative [facility] - 07/18/2024 Unless otherwise specified, test(s) performed at: [facility], [address] [place], [place] [id number] SOFTWARE TEST DEVELOPER: Reece Sexton M.D. For any questions, please call customer service at FREQUENCY:OTHER Resulting Agency Comment Specimen source: Serum Cooper Mena MD LAB BLOOD ORDERABLES Final Re sult Performing Organization Address [facility] de Phone Number [facility] See order comments or contact performing lab Unknown, [place] * (ABNORMAL) HEMATOLOGY (07/16/2024) Hemoglobin 11.2(L) 12.0 - 16.0 g/dL [facility] Hemoglobin x 3 33.6(L) 36.0 - 48.0 % [facility] 07/16/2024 07/18/2024 8:5 0 AM EST Narrative [facility] - 07/18/2024 Unless otherwise specified, test(s) performed at: [facility], [address] [place] [id number] SOFTWARE TEST DEVELOPER: Reece Sexton M.D. For any questions, please call customer service at FREQUENCY:OTHER Resulting Agency Comment Specimen source: Blood us Cooper Mena MD LAB BLOOD ORDERABLES Final Re sult [facility] See order comments or contact performing lab Unknown, [place] documented in this encounter Visit Diagnoses Not on filedocumented in this encounter Care Teams Venetian Blind Mechanic Relationship Specialty Start Date End Date Medina Ren NP [address] [place] [address] PCP - General Nurse Practitioner 01/03/21 documented as of this encounter
--- OUTSIDE RECORDS SUMMARY | 2024-07-22 16:25 | XMS_ITS | Encounter Summary ---
Author Organization [facility] Address [address] [place] [address] Phone Care Team Providers Care Roughing Mill Operator Name Role Phone Medina Ren THERMOSTAT REPAIRER Primary Care Provider [phone] Reason for Visit * Reason Comments Med Refill Encounter Details Date Type Department Care Team (Late st Contact Info) Description 03/05/2021 Refill [facility] [address] [place] [address] Jerry Montenegro MD Social History Tobacco Use Types Packs/Day Years [...] on file Sexual Orientation Not on file COVID-19 Exposure Response Date Recorded In the last month, have you been in contact with someone who was confirmed or suspected to have Coronavirus / COVID-19? No / Unsure 03/02/2021 9:25 AM EDT documented as of this encounter Plan of Treatment Not on file documented as of this encounter Visit Diagnoses Not on filedocumented in this encounter Care Teams Roughing Mill Operator Relationship Specialty Start Date End Date Medina Ren NP [address] [place] [address] PCP - General Nurse Practitioner 01/03/21 documented as of this encounter
--- OUTSIDE RECORDS SUMMARY | 2024-07-22 16:25 | XMS_ITS | Encounter Summary ---
Author Organization [facility] Address [address] [facility] [address] [place] [address] Phone Care Team Providers Care Cigar Packer And Grader Name Role Phone Medina Ren CIGAR PACKER AND GRADER Primary Care Provider [phone] Encounter Details Date Type Department Care Team ([facility] st Contact Info) Description 08/22/2021 Office Communication [facility] [address] [facility] [address] [place] [phone] Rachelle Lui, RN [address] [place] [phone] Social History Tobacco Use Types Packs/Day Years [...] on filedocumented in this encounter Care Teams Cigar Packer And Grader Relationship Specialty Start Date End Date Medina Ren NP [address] [place] [id number] PCP - General Nurse Practitioner 01/03/21 documented as of this encounter
--- OUTSIDE RECORDS SUMMARY | 2024-07-22 16:25 | XMS_ITS | Encounter Summary ---
Author Organization [facility], Address [address] [place] [address] Phone Care Team Providers Care Sign Wirer Name Role Phone Medina Ren DIRECTOR UTILIZATION MANAGEMENT Primary Care Provider [phone] Encounter Details Date Type Department Care Team (Late st Contact Info) Description 07/02/2024 Orders Only [facility] [address] [place] [address] Cooper Mena MD [address] [place] [phone] Social History Tobacco Use Types Packs/Day Years [...] Priority Date/Time Associated Diagnosis Comments HEMATOLOGY Routine 07/02/2024 documented in this encounter Results * (ABNORMAL) HEMATOLOGY (07/02/2024) Hemoglobin 10.7(L) 12.0 - 16.0 g/dL [facility] Hemoglobin x 3 32.1(L) 36.0 - 48.0 % [facility] 07/02/2024 07/03/2024 9:3 8 AM EST Narrative [facility] - 07/03/2024 Unless otherwise specified, test(s) performed at: [facility], [address] [place], [place] [id number] [employer] BUSINESS OBJECTS DEVELOPER: Reece Sexton M.D. For any questions, please call customer service at FREQUENCY:OTHER Resulting Agency Comment Specimen source: Blood Cooper Mena MD LAB BLOOD ORDERABLES Final Re sult [facility] See order comments or contact performing lab Unknown, [place] documented in this encounter Visit Diagnoses Not on filedocumented in this encounter Care Teams Sign Wirer Relationship Specialty Start Date End Date Medina Ren, DIRECTOR UTILIZATION MANAGEMENT [address] [place] [address] PCP - General Nurse Practitioner 01/03/21 documented as of this encounter
--- OUTSIDE RECORDS SUMMARY | 2024-07-22 16:26 | XMS_ITS | Encounter Summary ---
Author Organization [facility] Address [address] [place] [address] Phone Care Team Providers Care Face Cleaner Name Role Phone Medina Ren CHARACTER ARTIST Primary Care Provider [phone] Reason for Visit * Reason Comments Med Refill Encounter Details Date Type Department Care Team (Late st Contact Info) Description 09/06/2022 Refill [facility] [address] [place] [address] Chan Magaña MD Social History Tobacco Use Types Packs/Day [...] on filedocumented in this encounter Care Teams Face Cleaner Relationship Specialty Start Date End Date Medina Ren NP [address] [place] [address] PCP - General Nurse Practitioner 01/03/21 documented as of this encounter
--- OUTSIDE RECORDS SUMMARY | 2024-07-22 16:26 | XMS_ITS | Clinical Summary ---
Author Organization [facility] Address [address] [place] [address] Care Team Providers Care Hide And Skin Fleshing Machine Operator Name Role Phone Lucy Pop INDUSTRIAL MECHANIC Primary Care Provider [phone] Source Comments PLEASE NOTE, if this patient is a minor, it may be UNLAWFUL to discuss sensitive information that is contained in these records (such as FAMILY PLANNING, MENTAL HEALTH or SUBSTANCE ABUSE) with the minor patient's parent or other person without the patient's specific authorization.[facility] Allergies No known active allergies Social History Tobacco Use Types Packs/Day Years Used Date Smoking Tobacco: Former Cigarettes Comments:quit 6 years ago Alcohol Use Standard Drinks/Week Comments No 0 (1 standard drink = 0.6 oz pur e alcohol) Social Connections Answer Date Recorded Social Connections and Isolation 0 02/02/2019 Financial Resource Strain Answer Date R ecorded Financial Resource Strain 0 2018 Stress Answer Date Recorded Stress 0 02/02/2019 Physical Activity Answer Date Recorded Physical Activity 0 02/02/2019 Food Insecurity Answer Date Recorded Food 0 02/02/2019 Transportation Needs Answer Date Record ed Transportation 0 02/02/2019 Housing Stability Answer Date Recorded Housing 0 02/02/2019 Safety and Environment Answer Date Chance rded Safety 0 02/02/2019 Utilities Answer Date Recorded Utilities 0 02/02/2019 Employment Answer Date Recorded Employment 0 02/02/2019 Comments No Sex and Gender Information Value Date Recorded Sex Assigned at Not on file Legal Sex Female 12:49 PM PDT Gender Identity Not on file Sexual Orientation Not on file Plan of Treatment Not on file Insurance [facility] Member Subscriber Plan / Payer (Ef fective 2015-Present) Name:Phoenix Leach Relation to Subscriber:Self Name:Phoenix Leach Payer ID:[id number] Group ID:Not on file Type:Indemnity Address: [facility] [address] [phone] [place] FORMERLY [facility] [place] [id number] Care Teams Hide And Skin Fleshing Machine Operator Relationship Specialty Start Date End Date Lucy Pop FNP [address] [place] [address] PCP - General 08/06/18
--- OUTSIDE RECORDS SUMMARY | 2024-07-22 16:26 | XMS_ITS | Clinical Summary ---
Author Organization [facility] Address [address] [place] [address] Care Team Providers Care Research Microbiologist Name Role Phone Unavailable Primary Care Provider Unavailabl e Social History Tobacco Use Types Packs/Day Years Used Date Smoking Tobacco: Never Assessed Sex and Gender Information Value Date Recorded Sex Assigned at Not on file Gender Identity Not on file Sexual Orientation Not on file Plan of Treatment Not on file
--- NOTE | 2024-07-22 16:40 | A.OFFPC_ITS ---
Vital Signs 07/22/24 16:45 Height 5 ft 6 in Weight 109 lb 9 oz BMI 17.7 BP 100/60 Blood Pressure Location Rt brachial Position Sitting Respiration 14 Pulse 95 Pulse Source Pulse Oximeter Temp 98.9 F Temp Source Oral Pulse Oximetry (%) 96 Oxygen Delivery Method Room Air Intake Visit Reasons: f/u chronic conditions Intake Note: f/u for dm Allergies Penicillins Allergy (Intermediate, Verified 07/22/24 16:44) compromises mental health Medication List - Last Reconciled 07/22/24 by Nicholas Yang MD albuterol sulfate 90 mcg/actuation (Ventolin HFA) 2 puffs PO Q4H PRN 1 month aspirin 81 mg PO DAILY atorvastatin 80 mg PO DAILY blood sugar diagnostic (FreeStyle Lite Strips) Use to check blood sugar 4 times daily, before mealtimes and bedtime. blood-glucose meter (FreeStyle Lite Meter kit) Use to check blood sugar 4 times daily, before mealtimes and bedtime. blood-glucose meter,continuous (FreeStyle Fan 3 [place]) As directed blood-glucose sensor (FreeStyle Fan 3 Sensor device) As directed calcitriol 0.25 mcg PO TUTHSA cholecalciferol (vitamin D3) 50 mcg PO DAILY clonazepam 0.5 mg PO TID PRN 30 days diclofenac sodium 1% 4 grams topical QID 30 days inhalational spacing device (Aerochamber MV spacer) As directed insulin aspart U-100 (Novolog FlexPen U-100 Insulin aspart) 1 sliding scale dose subcut USEASDIRECTD 30 days insulin degludec (Tresiba FlexTouch U-200 insulin) 20 units (0.1 mL) subcut BEDTIME 30 days insulin syringe-needle U-100 (BD Insulin Syringe Ultra-Fine) USE 3 TIMES A DAY lancets (FreeStyle Lancets) Use to check blood sugar 4 times daily, before mealtimes and bedtime. montelukast 10 mg PO BEDTIME pen needle, diabetic (BD Ultra-Fine [place] Pen Needle) As directed four times a day sevelamer carbonate 800 mg PO TIDWM PRN trazodone 300 mg PO BEDTIME Tobacco use date assessed: 11/29/23 Dental Screening Dental Screen Date: 07/25/23 HPI f/u chronic conditions HPI Details 44 y/o female presents to f/u diabetes, chronic conditions. She notes she has stopped taking her blood pressure meds as she felt it had been running too low. She is not taking any BP meds. Recent eye exam showed mild diabetic retinopathy. A1c last month was 7.5%. Recent hospital visit in May for nausea, nonbloody emesis, generalized abd. discomfort. Pt notes symptoms have improved. NSTEMI and has an appt. with Cardiology in August. HPI Comments History of Present Illness Details Documentation assistance for Nicholas Yang MD, was provided by Aung Amezquita,? Cash Application Clerk on 07/22/2024 at 5:05 PM EST. I, Dr. Yang, have read, observed, and verified documentation. ?? 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 Autism Coronary artery disease Uncontrolled diabetes mellitus with hyperglycemia, with long-term current use of insulin Adrenal incidentaloma ESRD needing dialysis NSTEMI (non-ST elevated myocardial infarction) MDD (major depressive disorder) Hyperlipidemia due to type 1 diabetes mellitus Diabetic retinopathy Cauda equina syndrome Anasarca associated with disorder of kidney DM gastroparesis Abnormal abdominal MRI Hearing loss in right ear Hearing loss in left ear RSV infection Hypertensive urgency Diabetes mellitus type 1, uncontrolled Gastroparesis Moderate persistent asthma, uncomplicated Chronic GERD Cyclic vomiting syndrome Surgical History AVF (arteriovenous fistula) Previous back surgery Family History Father Diabetes Paternal Grandfather Diabetes Mother No known problems Social History Housing: Apartment Alcohol intake: unknown Patient Tobacco Use Status: Former Tobacco user e-Cigarette/Vaping Use: Never Used Second Hand Smoke Exposure: No Substance Use Type: Marijuana Advance Directives Date on File: 08/31/22 service: No Current occupational status: disabled Current occupational exposures/hazards: No Cognitive needs: No Hearing needs: No Vision needs: No Questionnaire PHQ-9 Over the last 2 weeks, how often have you been bothered by any of the following problems? 1. Little interest or pleasure in doing things: not at all 2. Feeling down, depressed, or hopeless: not at all 3. Trouble falling or staying asleep, or sleeping too much: not at all 4. Feeling tired or having little energy: not at all 5. Poor appetite or overeating: not at all 6. Feeling bad about yourself - or that you are a failure or have let yourself or your family down: not at all 7. Trouble concentrating on things, such as reading the newspaper or watching television: not at all 8. Moving or speaking so slowly that other people could have noticed. Or the opposite - being so fidgety or restless that you have been moving around a lot more than usual: not at all 9. Thoughts that you would be better off or of hurting yourself in some way: not at all Total score: 0 Source: Developed by Drs. Channing Funes, Tenisha Foley, Mohan Fagan and colleagues, with an educational francis from [employer]. Thrive Questionnaire Date Thrive assessed: 05/26/24 I am a: Patient What is your living situation today?: I have a steady place to live Within the past 12 months, did the food you bought not last and you didn't have the money to get more?: Never true Within the past 12 months, did you worry whether your food would run out before you got money to buy more?: Never true Do you have trouble paying for medicines?: No Do you have trouble getting transportation to medical appointments?: No Do you have trouble paying your heating and electricity bill?: No Do you have trouble taking care of your child, family member or friend?: No Do you have trouble with day-to-day activities such as bathing, preparing meals, shopping, managing finances, etc.?: No Are you currently unemployed and looking for a job?: No Are you interested in more education?: No Please select the resources that you would like help with: None Currently or been in a relationship where the following occur: No concerns reported THRIVE Score: 0 AUDIT C Alcohol Use Questionnaire (AUDIT-C) 1. How often do you have a drink containing alcohol?: Never 2. How many drinks containing alcohol do you have on a typical day when you are drinking?: 1 or 2 3. How often do you have six or more drinks on one occasion?: Never Total Score: 0 TERRY-7 AMB Questionnaire TERRY-7 Date TERRY - 7 assessed: 07/25/23 Feeling nervous, anxious, or on edge: 0 = Not at all Not being able to stop or control worryin = Not at all Worrying too much about different things: 0 = Not at all Trouble relaxin = Not at all Being so restless that it is hard to sit still: 0 = Not at all Becoming easily annoyed or irritable: 0 = Not at all Feeling afraid as if something awful might happen: 0 = Not at all Total TERRY-7 score (0-4 normal; 5-9 mild; 10-14 moderate; 15-21 severe): 0 Source: Developed by Drs. Channing Funes, Tenisha Foley, Mohan Fagan and colleagues, with an educational francis from [employer]. Review of Systems Const Denies chills, Denies fatigue, Denies fever(s), Denies headache(s) and Denies weakness ENT Denies dizziness and Denies headache(s) Card Denies dyspnea Resp Denies cough, Denies dyspnea, Denies wheezing and Denies other (shortness of breath) Musc Denies numbness and Denies tingling Neuro Denies dizziness, Denies headache(s), Denies numbness, Denies tingling and Denies weakness Psych Denies anxiety and Denies depression Endo Denies fatigue Aller/Immun Denies wheezing Physical exam (Primary Care) Vital Signs: Last Vital Signs Temp 98.9 F 07/22/24 16:45 Pulse 95 07/22/24 16:45 Resp 14 07/22/24 16:45 BP 100/60 07/22/24 16:45 Pulse Ox 96 07/22/24 16:45 Oxygen Delivery Method Room Air 07/22/24 16:45 BMI result Body Mass Index 17.7 Tobacco/Smoking Status: Tobacco use Status Tobacco use date assessed 11/29/23 07/22/24 16:40 Patient Tobacco Use Status Former Tobacco user 07/22/24 16:40 e-Cigarette/Vaping Use Never Used 07/22/24 16:40 PHQ-9: PHQ-9 Score PHQ-9: Total score 0 07/22/24 17:17 Thrive Assessment: Date of Thrive Assessment Date Thrive assessed 05/26/24 07/22/24 16:40 Currently or been in a relationship where the following occur: No concerns reported Const General: well developed; No acute distress Nutritional Appearance: well nourished Orientation/consciousness: patient oriented x3 [facility] Head: Yes normocephalic and Yes atraumatic Eyes General: appearance normal, both eyes and all related structures Pupils: Equal, round and reactive pupils present EOM: EOMs intact bilaterally Resp Effort & Inspection: normal respiratory effort Auscultation: clear to auscultation bilaterally Cardio Rate: regular rate Rhythm: regular rhythm Heart sounds: S1 normal heart sound present, S2 normal heart sound present, no gallops, no murmurs and no rubs Neuro General: patient oriented x3 and gait normal Cranial nerves: Yes Equal, round and reactive pupils present Psych Affect: normal affect Coding Level of Care Code Est Pt Level 5 (79312) Diagnoses 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 on chronic dialysis E10.22; N18.6; Z99.2 Chronic kidney disease stage: on chronic dialysis Screening for osteoporosis Z13.820 Hypertension complicating diabetes E11.59; I15.2 Abdominal discomfort R10.9 Chronic pain syndrome G89.4 Chronic pain type: chronic pain syndrome NSTEMI (non-ST elevated myocardial infarction) I21.4 ESRD needing dialysis N18.6; Z99.2 Assessment & Plan Assessment & Plan (1) 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 Improving?control. 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 Still?waiting?endocrinology?note?in?I?will?request?this?again (2) Screening for osteoporosis: Code(s): Z13.820 - Encounter for screening for osteoporosis Category: Medical Plan: End-stage?renal?disease?and low?vitamin-D?levels?with secondary?hypoparathyroidism Bone?density?test?ordered (3) Hypertension complicating diabetes: Comment: Managed on [employer]. beta-ángel and calcium channel ángel Code(s): E11.59 - Type 2 diabetes mellitus with other circulatory complications; I15.2 - Hypertension secondary to endocrine disorders Category: Medical Plan: Patient?had?been?on?blood?pressure?medications?which?have?been?discontin ued?due?to?low?blood?pressures,?particularly?after?dialysis She?will?remain?off?blood?pressure?medications Maintain?hydration?status?by?spreading?her?water?restriction?out?throughout?her? day She?is?asymptomatic?presently. (4) Abdominal discomfort: Code(s): R10.9 - Unspecified abdominal pain Category: Medical Plan: Patient?had?gone?to?the?emergency?department?for?abdominal?pain?and?nausea?and?v omiting Pain?has?resolved Hydrate?well?but?observe?water?restrictions (5) Chronic pain: Code(s): G89.29 - Other chronic pain Category: Medical Qualifiers: Chronic pain type: chronic pain syndrome Qualified Code(s): G89.4 - Chronic pain syndrome Plan: History?of?spinal?stenosis?chronic?pain Followed?by?neurology. Reviewed?neurology?note?with?patient. Continue?topical?medications Continue?exercises?learned?in?physical?therapy Follow-up?with?Neurology?as?recommended (6) NSTEMI (non-ST elevated myocardial infarction): Code(s): I21.4 - Non-ST elevation (NSTEMI) myocardial infarction Category: Medical Plan: History?of?NSTEMI?and?I?had?referred?her?to?Cardiology?at?[facility] I?not?received?a?note She?has?an?upcoming?appointment? Will?follow-up?cardiology?recommendations?at?next?visit (7) ESRD needing dialysis: Code(s): N18.6 - End stage renal disease; Z99.2 - Dependence on renal dialysis Category: Medical Plan: Patient?on?hemodialysis?and?followed?by? She?had?a?recent?appointment?with??but?I?do?not?have?the?no?yet Will?await?specialists?note We?can?follow-up?at?next?visit Stable Follow-up?with?nephrology?as?recommended Orders: Orders Comprehensive [place]. Panel Fast Today Z00.00 - Encounter for general adult medical examination without abnormal findings Complete Blood Count Auto Diff Today Z00.00 - Encounter for general adult medical examination without abnormal findings Vitamin D 25-OH Total Today E55.9 - Vitamin D deficiency, unspecified TSH reflex Free T4 Today Z00.00 - Encounter for general adult medical examination without abnormal findings UA and rflx microscopic Today Z00.00 - Encounter for general adult medical examination without abnormal findings Microalbumin, Random (w Creat) Today I10 - Essential (primary) hypertension Lipid Panel Today Z00.00 - Encounter for general adult medical examination without abnormal findings Magnesium Today N18.6 - End stage renal disease XR DEXA axial skeleton Today M81.0 - Age-related osteoporosis without current pathological fracture Phosphorus Today N18.6 - End stage renal disease
[2024-07-22 16:45] VITALS: BP 100/60; PULSE 95; RESP 14; TEMP 37.2; O2SAT 96; BMI 17.7
== END 2024-07-22 17:12 | disposition home or self-care (01) ==
PROVIDERS: PCP Family Medicine; Visit Provider Family Medicine
DX: I15.2 Hypertension secondary to endocrine disorders (principal); N18.6 End stage renal disease; Z99.2 Dependence on renal dialysis; E11.59 Type 2 diabetes mellitus with other circulatory complications; I21.4 Non-ST elevation (NSTEMI) myocardial infarction; Z13.820 Encounter for screening for osteoporosis; R10.9 Unspecified abdominal pain; G89.4 Chronic pain syndrome

== ENCOUNTER → 2024-07-22 16:22 | Outpatient (BNVA) | payer OTHER, SELFPAY | PROVIDERS: PCP Family Medicine; Visit Provider Family Medicine | DX: I15.2 Hypertension secondary to endocrine disorders (principal); E11.22 Type 2 diabetes mellitus with diabetic chronic kidney disease; N18.6 End stage renal disease; E11.59 Type 2 diabetes mellitus with other circulatory complications; R10.9 Unspecified abdominal pain; G89.4 Chronic pain syndrome; I21.4 Non-ST elevation (NSTEMI) myocardial infarction; Z99.2 Dependence on renal dialysis | CPT/HCPCS: 99212 ==

== ENCOUNTER 2024-09-02 13:52 | Outpatient (REF) | payer OTHER, SELFPAY ==
--- NOTE | ~2024-09-02 | MM_ITS ---
EXAMINATION: DXA BONE DENSITY AXIAL HISTORY: Osteoporosis TECHNIQUE: [employer] Dual energy absorptiometry (DEXA) of the lumbar spine, total left hip, and femoral neck was performed. COMPARISON: There are no prior studies for comparison. FINDINGS: The bone mineral density of the lumbar spine is 1.203 with a T-score of 0.3, and a Z-score of -0.9. This is indicative of normal bone mineral density. The bone mineral density of the left total hip is 0.902 with a T-score of -0.8, and a Z-score of -1.5. This is indicative of normal bone mineral density. The bone mineral density of the left femoral neck is 0.773 with a T-score of -1.9, and a Z-score of -2.2. This is indicative of osteopenia. FRACTURE RISK: The FRAX index suggests a risk of major osteoporotic fracture of 1.5%, and of hip fracture 0.2%. MM/XR DEXA axial skeleton IMPRESSION: Based on bone mineral density, and according to World Health Organization (WHO) criteria, the diagnosis is consistent with osteopenia. All bone density values are in grams per centimeter squared (g/cm2). Statistically, 68% of repeat scans fall within 1 SD (+/- 0.010 g/cm2 for AP spine L1-L4) and 1 SD (+/- 0.012 g/cm2 for femur total) FRAX is a trademark of the [employer]'s [employer] Met[employer], a World Health Organization (WHO) Collaborating Center. Electronically signed by: Channing Foster MD 09/02/2024 02:45 PM EDT
--- OUTSIDE RECORDS SUMMARY | 2024-09-02 17:13 | XMS_ITS | Encounter Summary ---
Author Organization [facility] Address [address] [facility] [address] [place] [address] Phone Care Team Providers Care Quality System Manager Name Role Phone Medina Ren CENSUS ENUMERATOR Primary Care Provider [phone] Encounter Details Date Type Department Care Team ([facility] st Contact Info) Description 08/22/2021 Office Communication [facility] [address] [facility] [address] [place] [phone] Rachelle Lui, RN [address] [facility] [address] [place] [phone] Social History Tobacco Use Types Packs/Day Years [...] on filedocumented in this encounter Care Teams Quality System Manager Relationship Specialty Start Date End Date Medina Ren NP [address] [place] [address] [phone] PCP - General Nurse Practitioner 01/03/21 documented as of this encounter
--- OUTSIDE RECORDS SUMMARY | 2024-09-02 17:13 | XMS_ITS | Clinical Summary ---
Author Organization [facility] Address [address] [place] [address] Care Team Providers Care Power Regulator Name Role Phone Medina Ren NP Primary Care Provider [phone] Allergies No known active allergies Medications Medication [...] place to sleep or slept in a senior care (including now)? No 09/03/2022 Sex and Gender [...] 65 - 99 mg/dL 09/05/2022 8:57 AM [facility] Comment:Fasting: <100 mg/dL, Non-Fasting: <200 mg/dL (ADA 2005) Blood Urea Nitrogen (BUN) 66(H) 8 - 21 mg/dL 09/05/2022 8:57 AM [facility] Creatinine 9.8(H) 0.4 - 1.1 mg/dL 09/05/2022 8:57 AM [facility] eGFR 5(L) >59 09/05/2022 8:57 AM [facility] Comment: CKD-EPI (2021) in mL/min/1.73 sq meters. Reported eGFR is based on the CKD-EPI equation that does not use a race coefficient as of 08/15/2022 Sodium 139 136 - 145 mmol/L 09/05/2022 8:57 AM [facility] Potassium 4.5 3.4 - 5.3 mmol/L 09/05/2022 8:57 AM [facility] Chloride 98 98 - 107 mmol/L 09/05/2022 8:57 AM [facility] CO2 20(L) 22 - 33 mmol/L 09/05/2022 8:57 AM [facility] Anion Gap 21(H) 7 - 17 09/05/2022 8:57 AM [facility] Calcium 9.4 8.7 - 10.5 mg/dL 09/05/2022 8:57 AM [facility] BUN/Creatinine Ratio 7(L) 10.0 - 25.0 Ratio 09/05/2022 8:57 AM [facility] Blood specimen (specimen) (Plasma/Serum) 09/05/2022 7:48 AM EDT 09/05/2022 8:28 AM EDT September Asaf DO LAB BLOOD ORDERABLES HOSPITAL LAB See Below [address] [address] * (ABNORMAL) Hemoglobin A1c with Estimated Average Glucose (09/01/2022 6:06 AM EDT) Hemoglobin A1C 6.5(H) <5.7 % 09/01/2022 8:23 AM [facility] Comment: A1c% ? Interpretation 5.7 - 6.0 ?Increase risk of diabetes 6.1 - 6.4 ?Higher risk of diabetes > or = 6.5 ?? Consistent with diabetes Diabetes Care, 33(Supp 1):S1-S61, 2010 Estimated Average Glucose 140 mg/dL 09/01/2022 8:23 AM [facility] Blood specimen (specimen) Blood specimen / Unknown 09/01/2022 6:06 AM EDT 09/01/2022 6:11 AM EDT Janice Smalls MD LAB BLOOD ORDERABLES HOSPITAL LAB See Below [place] [address] [place] [address] from Last 3 Months or Most Recently Relevant to Health Maintenance Advance Directives * Full Code (Latest Code Status on File) Date Activated Date Inactivated Comments 09/01/2022 4:52 AM Care Teams Power Regulator Relationship Specialty Start Date End Date Medina Ren NP [address] [place] [address] PCP - General Family Medicine 08/31/22
--- OUTSIDE RECORDS SUMMARY | 2024-09-02 17:14 | XMS_ITS | Encounter Summary ---
Author Organization [facility], Address [address] [place] [address] Phone Care Team Providers Care Automatic Grinder Operator Name Role Phone Medina Ren FRENCH DRAWER Primary Care Provider [phone] Encounter Details Date Type Department Care Team (Late st Contact Info) Description 08/20/2024 Orders Only [facility] [address] [place] [address] Cooper Mena MD [address] [place] [phone] Social History Tobacco Use Types Packs/Day Years [...] Priority Date/Time Associated Diagnosis Comments HEMATOLOGY Routine 08/20/2024 documented in this encounter Results * (ABNORMAL) HEMATOLOGY (08/20/2024) Hemoglobin 10.2(L) 12.0 - 16.0 g/dL [facility] Hemoglobin x 3 30.6(L) 36.0 - 48.0 % [facility] 08/20/2024 08/21/2024 11: 16 AM EDT Narrative NICK - 08/21/2024 Unless otherwise specified, test(s) performed at: [facility], [address] [place], [place] [id number] END POLISHER: Reece Sexton M.D. For any questions, please call customer service at FREQUENCY:OTHER Resulting Agency Comment Specimen source: Blood Cooper Mena MD LAB BLOOD ORDERABLES Final Re sult [facility] See order comments or contact performing lab Unknown, [place] documented in this encounter Visit Diagnoses Not on filedocumented in this encounter Care Teams Automatic Grinder Operator Relationship Specialty Start Date End Date Medina Ren, FRENCH DRAWER [address] [place] [id number] PCP - General Nurse Practitioner 01/03/21 documented as of this encounter
--- OUTSIDE RECORDS SUMMARY | 2024-09-02 17:14 | XMS_ITS | Clinical Summary ---
Author Organization [address] Address [address] [place] [phone] Phone Care Team Providers Care Fabricator Assembler Metal Products Name Role Phone Nicholas Yang MD Primary Care Provider Allergies Active Allergy Reactions Criticality Noted Date Comments Ibuprofen 10/09/2023 Penicillins 10/09/2023 Medications albuterol HFA (PROAIR HFA ; PROVENTIL HFA [...] mouth 1 (one) time each day. Active aspirin 81 mg chewable tablet Chew 1 tablet (81 mg total) 1 (one) time each day. Active ferrous sulfate 325 mg (65 mg elemental iron) tablet Take 1 tablet (325 mg total) by mouth 1 (one) time each day. Active BD Esperanza 2nd Gen Pen Needle 32 gauge x 5/32 needleIndicatio ns:Type 1 diabetes mellitus with other specified complication USE 4 NEEDLES WITH INSULIN PENS DIRECTED DAILY 100 each 2 06/13/19 25 Active cholecalciferol (VITAMIN D-3) 50 mcg (2,000 unit) capsule Take 1 capsule (2,000 Units total) by mouth 1 (one) time each day. 07/21/19 25 Active insulin aspart (NovoLOG Flexpen U-100 Insulin) 100 unit/mL (3 mL) injection pen Daily with sliding scale. Max dose of 100 units 15 mL 5 08/28/19 25 Active blood-glucose sensor (FreeStyle Fan 3 Plus Sensor) device Box = Kit = EA 2 each 08/28/19 25 Active insulin degludec (TRESIBA FlexTouch U-200) 200 unit/mL (3 mL) CONCENTRATED injection pen 20 units Sc at bedtime 15 mL 08/28/19 25 Active blood-glucose sensor (FREESTYLE FAN 3 SENSOR MISC) 1 Applicator by Does not apply route every 14 days. 02/05/20 24 025 Discontinued insulin aspart (NovoLOG Flexpen U-100 Insulin) 100 unit/mL (3 mL) injection pen Three times a day before meals up to max of 15 units daily 02/05/20 24 025 Discontinued(R eorder) insulin degludec (TRESIBA) 100 unit/mL injection Inject into the skin. 025 Discontinued Active Problems Problem Noted Date Diagnosed Date [...] she will not get any care in [facility]. I will try to refer her to Dr. Almanza in [facility] as long as her insurance allowed her. Will continue high-dose statin and aspirin. Will need to repeat lipid profile. Pulmonary edema 09/14/2023 Encounters Date Type Department Care Team Description 07/30/2024 Telephone Endocrinology - [place] [address] [place] [phone] Perri Loyola MD OFFICE NOTES 07/29/2024 4:00 PM EST Office Visit Endocrinology - [place] [address] [place] [phone] Perri Loyola MD Type 1 diabetes mellitus with other specified complication (CMS/HCC) (Primary Dx) from Last 3 Months Medical History Medical History Date Comments Volume overload DX:Volume overlo ad Influenza DX:Influenza Hyperglycemia due to diabete s mellitus (CMS/HCC) DX:Hyperglycemia due to diab etes mellitus ([facility]) Social History Tobacco Use Types Packs/Day Years Used Date Smoking Tobacco: Former Smokeless Tobacco: Never Tobacco Cessation:Counseling Given: Not Answered Alcohol Use Standard Drinks/Week Comments Not Currently [...] Sign Reading Time Taken Comments Blood Pressure 90/67 07/29/2024 4:02 PM EST Pulse 108 07/29/2024 4:02 PM EST Temperature 36.3 ??C (97.4 ??F) 07/29/2024 4:02 PM ES T Respiratory Rate 15 07/29/2024 4:02 PM EST Oxygen Saturation - - Inhaled Oxygen Concentration - - Weight 110 kg (241 lb 9.6 oz) 07/29/2024 4:02 PM EST Height 167.6 cm (5' 6 ) 07/29/2024 4:02 PM EST Body Mass Index 39 07/29/2024 4:02 PM EST Plan of Treatment Upcoming Encounters Date Type Department Care Team (Late st Contact Info) Description 09/05/2024 9:20 AM EDT Office Visit [facility] [address] [facility] [address] [place] [phone] Jaylen Davenport MD [address] [facility] [address] [place] [address] Health Maintenance Due Date Last Done Comments Breast Cancer Screening 1981 Diabetes: Annual Foot Exam 1991 Diabetes: Annual Retina Eye Exam 1991 Cervical Cancer Screening: Pap Smear 2002 Diabetes: Annual GFR (Glomerular Filtration Rate) 09/06/2023 09/05/2022, 09/05/2022, 09/04/2022, Additional history exists COVID-19 Vaccine ( season) 2024 10/23/2020, 10/02/2020 Depression Screening 03/20/2024 HIV Screening 03/20/2024 Hepatitis C Screening 03/20/2024 Hypertension/CHF/CAD Annual BMP Blood Test 03/20/2024 09/05/2022, 09/05/2022, 09/04/2022, Additional history exists Social Influencers of Health Screening 03/20/2024 Cholesterol Screening (Lipid Panel) 04/03/2024 04/03/2019 Diabetes: Annual Urine Albumin-Creatinine Ratio (uACR) 06/13/2024 04/03/2019 Diabetes: Blood Sugar Control Test (HGBA1C) 06/13/2024 09/01/2022, 04/03/2019 DTaP,Tdap,and Td Vaccines (3 - Td or Tdap) 07/23/2028 07/23/2018, 09/09/2012 MMR Vaccines Aged Out 09/09/2012 No longer eligi ble based on patient's age to complete this topic Hepatitis B Vaccines Completed 02/29/2024, 12/26/2023, 11/30/2023, Additional history exists Pneumococcal Vaccine: Pediatrics (0 to 5 Years) and At-Risk Patients (6 to 64 Years) Completed 03/21/2024, 07/23/2018, 12/19/2016 Influenza Vaccine Completed 03/28/2024, , 04/16/2019, Additional history exists HIB Vaccines Aged Out No longer eligi [...] to complete this topic RSV Immunization Patients Under 20 months Aged Out No longer eligible based on patient's age to complete this topic Varicella Vaccines Aged Out No longer eligible based on patient's age to complete this topic Insurance [facility] Member Subscriber Plan / Payer (Ef fective 2022-Present) Name:Phoenix Leach Relation to Subscriber:Self Name:Phoenix Leach Payer ID:[id number] Group ID:[id number] Type:Not on file Address: [place] [address] [address] [phone] Advance Directives Documents on File Type Date Recorded Patient Principal Research Economist Expl anation Health Care Decision (hx) 06/24/2012 AD TOPHER DIRECTIVE Care Teams Fabricator Assembler Metal Products Relationship Specialty Start Date End Date Nicholas Yang MD [address] [place] [address] Dr Marie [address] [place] [address] [place] PCP - General 07/31/23
--- OUTSIDE RECORDS SUMMARY | 2024-09-02 17:14 | XMS_ITS | Encounter Summary ---
Author Organization [facility], Address [address] [place] [address] Phone Care Team Providers Care Dental Service Chief Name Role Phone Medina Ren FIRST ASSISTANT MANAGER Primary Care Provider [phone] Encounter Details Date Type Department Care Team (Late st Contact Info) Description 08/06/2024 Orders Only [facility] [address] [place] [address] Cooper Mena MD [address] [place] [phone] Social History Tobacco Use Types Packs/Day Years [...] Priority Date/Time Associated Diagnosis Comments HEMATOLOGY Routine 08/06/2024 documented in this encounter Results * (ABNORMAL) HEMATOLOGY (08/06/2024) Hemoglobin 10.8(L) 12.0 - 16.0 g/dL [facility] Hemoglobin x 3 32.4(L) 36.0 - 48.0 % [facility] 08/06/2024 08/09/2024 11: 08 AM EST Narrative NICK - 08/09/2024 Unless otherwise specified, test(s) performed at: [facility], [address] [place], [place] [id number] CASEWORK MANAGER: Reece Sexton M.D. For any questions, please call customer service at FREQUENCY:OTHER Resulting Agency Comment Specimen source: Blood Cooper Mena MD LAB BLOOD ORDERABLES Final Re sult [facility] See order comments or contact performing lab Unknown, [place] documented in this encounter Visit Diagnoses Not on filedocumented in this encounter Care Teams Dental Service Chief Relationship Specialty Start Date End Date Medina Ren NP [address] [place] [address] PCP - General Nurse Practitioner 01/03/21 documented as of this encounter
--- OUTSIDE RECORDS SUMMARY | 2024-09-02 17:14 | XMS_ITS | Encounter Summary ---
Author Organization [facility], Address [address] [place] [address] Phone Care Team Providers Care Wing Scorer Name Role Phone Medina Ren NP Primary Care Provider [phone] Encounter Details Date Type Department Care Team (Late st Contact Info) Description 08/01/2024 Orders Only [facility] [address] [place] [address] Cooper Mena MD [address] [place] [phone] Social History Tobacco Use Types Packs/Day Years [...] Procedure Name Priority Date/Time Associated Diagnosis Comments IMMUNO CHEMISTRY Routine 08/01/2024 HEMATOLOGY Routine 08/01/2024 CHEMISTRY Routine 08/01/2024 CHEMISTRY Routine 08/01/2024 documented in this encounter Results * IMMUNO CHEMISTRY (08/01/2024) Hep B Surface Ag Negative Negative [facility] 08/01/2024 08/05/2024 9:2 3 AM EST Narrative Resulting Agency Comment Specimen source: Serum Cooper Mena MD LAB BLOOD ORDERABLES Final Re sult [facility] See order comments or contact performing lab Unknown, [place] * (ABNORMAL) [facility] (08/01/2024) Creatinine 14.31(H) 0.60 - 1.30 mg/dL [facility] Sodium 136 136 - 145 mEq/L [facility] Potassium 5.8(H) 3.5 - 5.1 mEq/L [facility] Bicarbonate (CO2) 17(L) 22 - 29 mEq/L [facility] Calcium 8.8 8.4 - 10.2 mg/dL [facility] Corrected Calcium 9.0 8.4 - 10.2 mg/dL [facility] Comment: Corrected Calcium is not equivalent to measured Ionized Calcium. Phosphorus 12.1(H) 2.6 - 4.5 mg/dL [facility] Calcium Phosphorus Product 106(H) 0 - 54 [facility] Calcium Phosporus Product, Cor 109(H) 0 - 54 [facility] ALT (SGPT) 8 7 - 52 U/L [facility] Albumin 3.7 3.5 - 5.2 g/dL [facility] Glucose 136(H) 70 - 100 mg/dL [facility] Iron 41 30 - 160 mcg/dL [facility] UIBC 155 155 - 355 mcg/dL [facility] TIBC 196 185 - 515 mcg/dL [facility] Iron Saturation (TSat) 21 20 - 55 % [facility] Ferritin 477(H) 10 - 291 ng/mL [facility] 08/01/2024 08/05/2024 9:2 3 AM EST Narrative [facility] - 08/05/2024 Unless otherwise specified, test(s) performed at: [facility], [address] [place] [id number] CHANGE MANAGEMENT MANAGER: Reece Sexton M.D. For any questions, please call customer service at FREQUENCY:MONTHLY Resulting Agency Comment Specimen source: Serum Cooper Mena MD LAB BLOOD ORDERABLES Edited R esult - Final Performing Organization Address [facility] de Phone Number [facility] See order comments or contact performing lab Unknown, [place] * (ABNORMAL) [facility] (08/01/2024) Pathologist [facility] PTH 2,757(H) 16 - 80 pg/mL [facility] Comment: Verified by repeat analysis. 08/01/2024 08/05/2024 9:0 0 AM EST Narrative [facility] - 08/05/2024 Unless otherwise specified, test(s) performed at: [facility], [address] [place] [address] CHANGE MANAGEMENT MANAGER: Reece Sexton M.D. For any questions, please call customer service at FREQUENCY:MONTHLY Resulting Agency Comment Specimen source: Plasma Cooper Mena MD LAB BLOOD ORDERABLES Final Re sult Performing Organization Address [facility] de Phone Number [facility] See order comments or contact performing lab Unknown, [place] * (ABNORMAL) HEMATOLOGY (08/01/2024) Pathologist [facility] Hemoglobin 10.2(L) 12.0 - 16.0 g/dL [facility] Hemoglobin x 3 30.6(L) 36.0 - 48.0 % [facility] 08/01/2024 08/05/2024 8:1 5 AM EST Narrative [facility] - 08/05/2024 Unless otherwise specified, test(s) performed at: [facility], [address] [place] [id number] CHANGE MANAGEMENT MANAGER: Reece Sexton M.D. For any questions, please call customer service at FREQUENCY:MONTHLY Resulting Agency Comment Specimen source: Blood Cooper Mena MD LAB BLOOD ORDERABLES Final Re sult Performing Organization Address [facility] de Phone Number [facility] See order comments or contact performing lab Unknown, [place] documented in this encounter Visit Diagnoses Not on filedocumented in this encounter Care Teams Wing Scorer Relationship Specialty Start Date End Date Medina Ren, HEAD ESTHETICIAN [address] [place] [phone] PCP - General Nurse Practitioner 01/03/21 documented as of this encounter
--- OUTSIDE RECORDS SUMMARY | 2024-09-02 17:14 | XMS_ITS | Clinical Summary ---
Author Organization [facility] Address [address] [place] [address] Care Team Providers Care Pulp House Supervisor Name Role Phone Unavailable Primary Care Provider Unavailabl e Social History Tobacco Use Types Packs/Day Years Used Date Smoking Tobacco: Never Assessed Sex and Gender Information Value Date Recorded Sex Assigned at Not on file Gender Identity Not on file Sexual Orientation Not on file Plan of Treatment Not on file
--- OUTSIDE RECORDS SUMMARY | 2024-09-02 17:14 | XMS_ITS | Encounter Summary ---
Author Organization [facility], Address [address] [place] [address] Phone Care Team Providers Care Designated Broker Name Role Phone Medina Ren NP Primary Care Provider [phone] Encounter Details Date Type Department Care Team (Late st Contact Info) Description 08/27/2024 Orders Only [facility] [address] [place] [address] Cooper Mena MD [address] [place] [phone] Social History Tobacco Use Types Packs/Day Years [...] Date/Time Associated Diagnosis Comments IMMUNO CHEMISTRY Routine 08/27/2024 HEMATOLOGY Routine 08/27/2024 CHEMISTRY Routine 08/27/2024 CHEMISTRY Routine 08/27/2024 documented in this encounter Results * IMMUNO CHEMISTRY (08/27/2024) Hep B Surface Ag Negative Negative [facility] 08/27/2024 08/28/2024 10: 57 AM EDT Narrative Resulting Agency Comment Specimen source: Serum Cooper Mena MD LAB BLOOD ORDERABLES Final Re sult [facility] See order comments or contact performing lab Unknown, [place] * (ABNORMAL) [facility] (08/27/2024) Pathologist [facility] Creatinine 11.10(H) 0.60 - 1.30 mg/dL [facility] Sodium 140 136 - 145 mEq/L [facility] Potassium 5.0 3.5 - 5.1 mEq/L [facility] ALT (SGPT) 8 7 - 52 U/L [facility] Glucose 122(H) 70 - 100 mg/dL [facility] Bicarbonate (CO2) 20(L) 22 - 29 mEq/L [facility] Calcium 9.0 8.4 - 10.2 mg/dL [facility] Corrected Calcium 9.2 8.4 - 10.2 mg/dL [facility] Comment: Corrected Calcium is not equivalent to measured Ionized Calcium. Phosphorus 10.0(H) 2.6 - 4.5 mg/dL [facility] Calcium Phosphorus Product 90(H) 0 - 54 [facility] Calcium Phosporus Product, Cor 92(H) 0 - 54 [facility] Albumin 3.8 3.5 - 5.2 g/dL [facility] Iron 74 30 - 160 mcg/dL [facility] UIBC 144(L) 155 - 355 mcg/dL [facility] TIBC 218 185 - 515 mcg/dL [facility] Iron Saturation (TSat) 34 20 - 55 % [facility] Ferritin 752(H) 10 - 291 ng/mL [facility] 08/27/2024 08/28/2024 10: 57 AM EDT Narrative [facility] - 08/28/2024 Unless otherwise specified, test(s) performed at: [facility], [address] [place] [id number] CARE ASSOCIATE: Reece Sexton M.D. For any questions, please call customer service at FREQUENCY:MONTHLY Resulting Agency Comment Specimen source: Serum Cooper Mena MD LAB BLOOD ORDERABLES Edited R esult - Final Performing Organization Address [facility] de Phone Number [facility] See order comments or contact performing lab Unknown, [place] * (ABNORMAL) [facility] (08/27/2024) PTH 2,252(H) 16 - 80 pg/mL [facility] Comment: Verified by repeat analysis. 08/27/2024 08/28/2024 8:5 0 AM EDT Narrative [facility] - 08/28/2024 Unless otherwise specified, test(s) performed at: [facility], [address] [place] [address] CARE ASSOCIATE: Reece Sexton M.D. For any questions, please call customer service at FREQUENCY:MONTHLY Resulting Agency Comment Specimen source: Plasma Cooper Mena MD LAB BLOOD ORDERABLES Final Re sult Performing Organization Address [facility] de Phone Number [facility] See order comments or contact performing lab Unknown, [place] * (ABNORMAL) HEMATOLOGY (08/27/2024) Pathologist [facility] Hemoglobin 11.1(L) 12.0 - 16.0 g/dL [facility] Hemoglobin x 3 33.3(L) 36.0 - 48.0 % [facility] 08/27/2024 08/28/2024 8:3 4 AM EDT Narrative [facility] - 08/28/2024 Unless otherwise specified, test(s) performed at: [facility], [address] [place] [id number] CARE ASSOCIATE: Reece Sexton M.D. For any questions, please call customer service at FREQUENCY:MONTHLY Resulting Agency Comment Specimen source: Blood Cooper Mena MD LAB BLOOD ORDERABLES Final Re sult Performing Organization Address [facility] de Phone Number [facility] See order comments or contact performing lab Unknown, [place] documented in this encounter Visit Diagnoses Not on filedocumented in this encounter Care Teams Designated Broker Relationship Specialty Start Date End Date Medina Ren STRETCHER [employer] DRIER [address] [place] [address] PCP - General Nurse Practitioner 01/03/21 documented as of this encounter
--- OUTSIDE RECORDS SUMMARY | 2024-09-02 17:14 | XMS_ITS ---
Author Name Lan Jerry Address [address] [place] [address] Phone [phone] Organization [facility], NA DOCUMENT DISCLAIMER Multiple document versions may exist, please be sure you review the latest version. The information in the [facility] Progress Note Document represents a providers documented clinical note containing certain health and medical information. It may not contain the complete medical history for the patient and should be independently verified. The represented time in the document is Eastern Time PROVIDER ROUNDING NOTE COMPREHENSIVE Patient:?Phoenix?Haylee,?1980,?44y,?F Dialysis?Location:?[facility] Attending?Director Of Health Care Marketing:?Jeryr?Lan Service?Date:?08/22/2024 Service?Provider:?Jerry?Lan,? I?met?face?to?face?with?the?patient?today. 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 HOME?MEDICATIONS Home?Medications:? ??Sucroferric?Oxyhydroxide?(Velphoro)?500?mg,?By?Mouth,&#160 ;Take?4?Tablet?Every?24?hours?With?Meals?Take?1?ta b?with?meals?and?1?tab?with?a?snack ??trazodone?150?mg,?by?mouth,?Take?2?tablet?once a?day?in?PM ??Novolog?Mix?70-30FlexPen?U-100?(insulin?asp?prt-insulin&#1 60;aspart)?100?unit/mL?(70-30),?Inject?as?directed?sliding?scale ??carvedilol?3.125?mg,?by?mouth,?Take?1?tablet?twi ce?a?day?hold?morning?dose?on?dialysis?days ??atorvastatin?80?mg,?by?mouth,?Take?1?tablet?once?a?day?in?p.m. ??Singulair?(montelukast)?10?mg,?by?mouth,?Take?1?tablet?once?a?day?in?PM ??clonazepam?0.5?mg,?by?mouth,?Take?1?tablet?three?times?a?day ??Aspirin?Childrens?(aspirin)?81?mg,?by?mouth,?Take 1?tablet?once?a?day ??Tresiba?U-100?Insulin?(insulin?degludec)?100?unit/mL,&#160 ;subcutaneously,?Inject?40?unit?once?a?day?sliding?scale ??albuterol?sulfate?90?mcg/actuation,?using?inhaler,?Inhale& #160;2?puff?every?four?to?six?hours?as?needed Allergies:? 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 BP?Stand?Pre ??08/25/2024:?111/53 ??08/22/2024:?116/68 BP?Sit?Pre ??08/25/2024:?107/55 ??08/22/2024:?122/64 ??08/20/2024:?103/61 BP?Stand?Post ??08/25/2024:?109/62 ??08/22/2024:?106/61 ??08/20/2024:?103/58 BP?Sit?Post ??08/25/2024:?108/61 ??08/22/2024:?116/59 ??08/20/2024:?103/57 Tx?Duration ??08/25/2024:?4:06 ??08/22/2024:?4:02 ??08/20/2024:?4:03 Missed?Treatments 1?-?last?30?days 1?-?last?60?days 07/30?-?recent FLUID?ASSESSMENT Fluid?status?acceptable.?Interdialytic?weight?gain?acceptable.?Op timal?weight?discussed.? EDW?(kg) ??08/25/2024:?108.5 ??08/22/2024:?108.5 ??08/20/2024:?108.5 Weight?Pre?(kg) ??08/25/2024:?112.5 ??08/22/2024:?111.0 ??08/20/2024:?111.5 Weight?Post?(kg) ??08/25/2024:?109.4 ??08/22/2024:?108.2 ??08/20/2024:?108.5 PWV?(kg) ??08/25/2024:?0.9 ??08/22/2024:?-0.3 ??08/20/2024:?0.0 UF?Rate?(mL/kg/hr) ??08/25/2024:?6.9 ??08/22/2024:?6.4 ??08/20/2024:?6.8 ADEQUACY?ASSESSMENT Adequacy?target?met.?Prescription?compliance?acceptable.?No?changes?indicated.? spKt/V,?URR ??08/20/2024:?1.46,?71.0 ??08/13/2024:?1.34,?68.0 ??07/16/2024:?1.42,?70.0 ACCESS?ASSESSMENT ??Access?Type:?CVCatheter ??Access?SubType:?Tunneled ??Access?Status:?Active?(In?Use)?-?09/24/2023 ??Access?Location:?Chest ??Placed:?--/--/---- Referral?made?for?access?revision/?intervention. ANEMIA?ASSESSMENT HGB?at?goal.?Iron?parameters?acceptable.?NAKITA?dose?adequate.& #160;No?changes?indicated.? HGB ??08/20/2024:?10.2 ??08/13/2024:?10.6 ??08/06/2024:?10.8 ?? Ferritin ??08/01/2024:?477.0 ??06/25/2024:?585.0 ??06/01/2024:?291.0 Iron?Sucrose?(Venofer)?(mg) ??08/25/2024:?100 ??08/22/2024:?100 ??08/20/2024:?100 BMM?ASSESSMENT PTH?elevated.?Calcium?controlled.?Phosphorus?elevated.?BMM?meds&# 160;adherence?not?acceptable.?Counseled?pt?on?meds?adherence.&#16 0;Diet?reviewed?with?patient.?Medications?adjusted.?Treatment?pro tocol?ordered.?Referred?to?dietitian.? PTH,?Intact ??08/01/2024:?2757.0 ??06/25/2024:?2209.0 ??06/01/2024:?2402.0 ?? Calcium,?Phosphorus ??08/08/2024:?-,?8.2 ??08/01/2024:?8.8,?12.1 ??07/02/2024:?-,?8.7 Vitamin?D?(Calcitriol)?Oral?(mcg) ??08/25/2024:?0.5 ??08/22/2024:?0.5 ??08/20/2024:?0.5 NUTRITION?ASSESSMENT Potassium?controlled.?Albumin?controlled.?No?changes?indicated.? Potassium,?Albumin ??08/18/2024:?5.0,?- ??08/11/2024:?4.9,?- ??08/01/2024:?5.8,?3.7 ?? eNPCR ??08/20/2024:?1.26 ??08/13/2024:?0.65 ??07/16/2024:?1.03 PHYSICAL?EXAM Exam?Performed.?Vital?Signs?Reviewed.?Lungs?-?Clear.?CV&#160 ;-?Blood?pressure?noted.?CV?-?RRR.?EXT?-?No?edema. ?EXT?-?No?ulcers.?AVF/AVG?Positive?thrill/bruit. DIAGNOSIS Chief?Complaint:?N18.6?End?stage?renal?disease Patient?is?stable. Patient?data?updated?08/26/2024?at?8:11?PM Signed?By:?Lan,?Jerry,???on?08/26/2024?8:14:23?PM END OF DOCUMENT
--- OUTSIDE RECORDS SUMMARY | 2024-09-02 17:14 | XMS_ITS | Encounter Summary ---
Author Organization [facility] Address [address] [facility] [address] [place] [address] Phone Care Team Providers Care Coffee Roaster Name Role Phone Medina Ren FINISH MACHINE TENDER Primary Care Provider [phone] Encounter Details Date Type Department Care Team ([facility] st Contact Info) Description 01/02/2022 Office Communication [facility] [address] [facility] [address] [place] [phone] Jihan Wilburn, [place] [address] [facility] [address] [place] [phone] Social History Tobacco Use Types Packs/Day Years [...] on filedocumented in this encounter Care Teams Coffee Roaster Relationship Specialty Start Date End Date Medina Ren NP [address] [place] [address] [phone] PCP - General Nurse Practitioner 01/03/21 documented as of this encounter
--- OUTSIDE RECORDS SUMMARY | 2024-09-02 17:14 | XMS_ITS | Clinical Summary ---
Author Organization [facility] Address [address] [place] [address] Care Team Providers Care Hide Splitter Name Role Phone Lucy Pop CERTIFIED MAINTENANCE WELDER Primary Care Provider [phone] Source Comments PLEASE NOTE, if this patient [...] Plan of Treatment Not on file Insurance [facility] Member Subscriber Plan / Payer (Ef fective 2015-Present) Name:Phoenix Leach Relation to Subscriber:Self Name:Phoenix Leach Payer ID:[id number] Group ID:Not on file Type:Indemnity Address: [facility] [id number] [place] [address] [place] MED[place] [facility] [place] [address] Care Teams Hide Splitter Relationship Specialty Start Date End Date Lucy Pop FNP [address] [place] [address] PCP - General 08/06/18
--- OUTSIDE RECORDS SUMMARY | 2024-09-02 17:14 | XMS_ITS | Clinical Summary ---
Author Organization [facility] Address [address] [place] [address] Phone Care Team Providers Care Senior Reservoir Engineer Name Role Phone Medina Ren NP Primary Care Provider [phone]- [phone] Allergies Active Allergy Reactions Criticality Noted Date [...] tablet 1 10/09/2022 Active ergocalciferol 1.25 MG (50858 UT) capsule TAKE 1 CAPSULE BY MOUTH [...] and replete electrolytes as needed. CARE AT [facility] Last Assessment & Plan: Monitoring blood sugars closely as above. Will need to restart on her home regimen once her blood sugars have stabilized. We'll follow her BMP regularly and replete electrolytes as needed. Type 1 diabetes mellitus 11/02/2017 Overview (10/25/2020): [facility] Last Assessment & Plan: Monitoring blood sugars [...] Encounters Date Type Department Care Team Description 08/27/2024 Orders Only [facility] [address] [place] [address] Cooper Mena MD 08/20/2024 Orders Only [facility] [address] [address] Cooper Mena MD 08/13/2024 Orders Only [facility] [address] [address] Cooper Mena MD 08/06/2024 Orders Only [facility] [address] [address] Cooper Mena MD 08/01/2024 Orders Only [facility] [address] [address] Cooper Mena MD 07/23/2024 Orders Only [facility] [address] [address] Cooper Mena MD 07/16/2024 Orders Only [facility] [address] [address] Cooper Mena MD 07/09/2024 Orders Only [facility] [address] [address] Cooper Mena MD 07/02/2024 Orders Only [facility] [address] [address] Cooper Mena MD 06/25/2024 Orders Only [facility] [address] [address] Cooper Mena MD 06/18/2024 Orders Only [facility] [address] [address] Cooper Mena MD 06/10/2024 Orders Only [facility] [address] [address] Cooper Mena MD from Last 3 Months [...] (#1) 2024 06/05/2021, 2018 Diabetes: Hemoglobin A1C 09/23/2024 025, 03/26/2024, 12/26/2023, Additional history exists Procedures Procedure Name Priority Date/Time Associated Diagnosis Comments IMMUNO CHEMISTRY Routine 08/27/2024 CHEMISTRY Routine 08/27/2024 CHEMISTRY Routine 08/27/2024 HEMATOLOGY Routine 08/27/2024 HEMATOLOGY Routine 08/20/2024 HD KINETICS Routine 08/13/2024 POST CHEMISTRY Routine 08/13/2024 CHEMISTRY Routine 08/13/2024 HEMATOLOGY Routine 08/13/2024 HEMATOLOGY Routine 08/06/2024 IMMUNO CHEMISTRY Routine 08/01/2024 CHEMISTRY Routine 08/01/2024 CHEMISTRY Routine 08/01/2024 HEMATOLOGY Routine 08/01/2024 HEMATOLOGY Routine 07/23/2024 HD KINETICS Routine 07/16/2024 POST CHEMISTRY Routine 07/16/2024 CHEMISTRY Routine 07/16/2024 HEMATOLOGY Routine 07/16/2024 HEMATOLOGY Routine 07/09/2024 HEMATOLOGY Routine 07/02/2024 SPECIAL CHEMISTRY Routine 06/25/2024 TRACE ELEMENTS Routine 06/25/2024 IMMUNO CHEMISTRY Routine 06/25/2024 SPECIAL CHEMISTRY Routine 06/25/2024 CHEMISTRY Routine 06/25/2024 HEMATOLOGY Routine 06/25/2024 CHEMISTRY Routine 06/25/2024 HEMATOLOGY Routine 06/18/2024 HEMATOLOGY Routine 06/10/2024 from Last 3 Months Results * IMMUNO CHEMISTRY (08/27/2024) Only the most recent of3 resultswithin the time period is included. Hep B Surface Ag Negative Negative [facility] 08/27/2024 08/28/2024 10: 57 AM EDT Narrative Resulting Agency Comment Specimen source: Serum Cooper Mena MD LAB BLOOD ORDERABLES Final Re sult Performing Organization Address [facility] Co de Phone Number [email or web address] See order comments or contact performing lab Unknown, [place] * (ABNORMAL) HEMATOLOGY (08/27/2024) Only the most recent of12 resultswithin the time period is included. Hemoglobin 11.1(L) 12.0 - 16.0 g/dL [facility] Hemoglobin x 3 33.3(L) 36.0 - 48.0 % [facility] 08/27/2024 08/28/2024 8:3 4 AM EDT Narrative [facility] - 08/28/2024 Unless otherwise specified, test(s) performed at: [facility], [address] [place] [address] OPTICAL TECHNICIAN: Reece Sexton M.D. For any questions, please call customer service at FREQUENCY:MONTHLY Resulting Agency Comment Specimen source: Blood Cooper Mena MD LAB BLOOD ORDERABLES Final Re sult Performing Organization Address City/[facility]/ZIP Co de Phone Number [email or web address] See order comments or contact performing lab Unknown, [place] * (ABNORMAL) [facility] (08/27/2024) Only the most recent of8 resultswithin the time period is included. Creatinine 11.10(H) 0.60 - 1.30 mg/dL [facility] [...] 08/27/2024 08/28/2024 10: 57 AM EDT Narrative [facility] - 08/28/2024 Unless otherwise specified, test(s) performed at: [facility], [address] [place] [address] OPTICAL TECHNICIAN: Reece Sexton M.D. For any questions, please call customer service at FREQUENCY:MONTHLY Resulting Agency Comment Specimen source: Serum us Cooper Mena MD LAB BLOOD ORDERABLES Edited R esult - Final [employer] See order comments or contact performing lab Unknown, [place] * HD KINETICS (08/13/2024) Only the most recent of2 resultswithin the time period is included. Pathologist [facility] % Urea Reduction 68 65 - 80 % [facility] 08/13/2024 08/15/2024 9: 43 AM EST Narrative Resulting Agency Comment Specimen source: Plasma Cooper Mena MD LAB BLOOD ORDERABLES Final Re sult Performing Organization Address [facility] de Phone Number [facility] See order comments or contact performing lab Unknown, [place] * POST CHEMISTRY (08/13/2024) Only the most recent of2 resultswithin the time period is included. BUN Post Dialysis 12 6 - 19 mg/dL [facility] 08/13/2024 08/15/2024 9:4 3 AM EST Narrative [facility] - 08/15/2024 Unless otherwise specified, test(s) performed at: [facility], [address] [place], [place] [phone] OPTICAL TECHNICIAN: Reece Sexton M.D. For any questions, please call customer service at FREQUENCY:OTHER Resulting Agency Comment Specimen source: Plasma Cooper Mena MD LAB BLOOD ORDERABLES Final Re sult Performing Organization Address [facility] de Phone Number [email or web address] See order comments or contact performing lab Unknown, [place] * (ABNORMAL) SPECIAL CHEMISTRY (06/25/2024) Only the most recent of2 resultswithin the time period is included. Hemoglobin A1C 7.5(H) 4.8 - 5.9 % [facility] 06/25/2024 06/30/2024 11: 12 AM EST Narrative [facility] - 06/30/2024 Unless otherwise specified, test(s) performed at: [facility], [address] [place] [address] OPTICAL TECHNICIAN: Reece Sexton M.D. For any questions, please call customer service at FREQUENCY:MONTHLY Resulting Agency Comment Specimen source: Blood Cooper Mena MD LAB BLOOD BANK TEST ORDERABLE S Final Result Performing Organization Address [facility] de Phone Number [email or web address] See order comments or contact performing lab Unknown, [place] * TRACE ELEMENTS (06/25/2024) Aluminum <5 0 - 10 mcg/L [facility] Comment: This test was developed and its performance characteristics determined by [facility]. It has not been cleared or approved by the FDA. The laboratory is regulated under CLIA as qualified to perform high complexity testing. This test is used for clinical purposes. It should not be regarded as investigational or for research. 06/25/2024 06/30/2024 11: 11 AM EST Narrative [facility] - 06/30/2024 Unless otherwise specified, test(s) performed at: [facility], [address] [place], [place] [phone] OPTICAL TECHNICIAN: Reece Sexton M.D. For any questions, please call customer service at FREQUENCY:MONTHLY Resulting Agency Comment Specimen source: Serum Cooper Mena MD LAB BLOOD ORDERABLES Final Re sult [email or web address] See order comments or contact performing lab Unknown, [place] from Last 3 Months Insurance [facility] ([id number]) [facility] ([id number]) FELA HOLLOWAY [phone] Care Teams Senior Reservoir Engineer Relationship Specialty Start Date End Date Medina Ren NP [address] [place] [id number] PCP - General Nurse Practitioner 01/03/21
--- OUTSIDE RECORDS SUMMARY | 2024-09-02 17:14 | XMS_ITS ---
Author Name Lan Jerry Address [address] [place] [address] Phone [phone] Organization [facility], NA DOCUMENT DISCLAIMER Multiple document versions may exist, please be sure you review the latest version. The information in the [facility] Progress Note Document represents a providers documented clinical note containing certain health and medical information. It may not contain the complete medical history for the patient and should be independently verified. The represented time in the document is Eastern Time PROVIDER ROUNDING NOTE BASIC Patient:?[place]?Haylee,?1980,?44y,?F Dialysis?Location:?[facility] Attending?Information Technology Architect:?Rebecca Service?Date:?08/04/2024 Service?Provider:?Jerry?Lan,? I?met?face?to?face?with?the?patient?today. OVERVIEW The?patient?presented?with?ESRD?on?dialysis Primary?cause?of?renal?failure:?Type?1?diabetes?mellitus&#16 0;with?diabetic?chronic?kidney?disease TRANSPLANT Comments:?Needs?cardiac?work?up.?Has?an?appointment?with&#16 0;office services associate?(?PV[facility]) DIALYSIS?PRESCRIPTION ??IHD?3x?Week?Start?date:?07/09/24 ??Dialyzer:?160NRe?Optiflux ??BFR:?450 ??DFR:?Manual?800 ??Potassium:?2.0 ??Sodium:?138 ??EDW:?110 ??Duration:?4:00 ??Calcium:?2.50 ??Bicarb:?36 ??Rx?updated?on:?07/07/2024 TREATMENT?ASSESSMENT BP?Stand?Pre ??07/28/2024:?134/66 BP?Sit?Pre ??08/04/2024:?130/71 ??08/01/2024:?134/76 ??07/28/2024:?117/60 BP?Stand?Post ??07/28/2024:?106/55 BP?Sit?Post ??08/04/2024:?126/62 ??08/01/2024:?114/63 ??07/28/2024:?100/53 Tx?Duration ??08/04/2024:?3:45 ??08/01/2024:?4:02 ??07/28/2024:?4:03 Missed?Treatments 1?-?last?30?days 1?-?last?60?days 07/30?-?recent FLUID?ASSESSMENT EDW?(kg) ??08/04/2024:?110.0 ??08/01/2024:?110.0 ??07/28/2024:?110.0 Weight?Pre?(kg) ??08/04/2024:?112.5 ??08/01/2024:?114.1 ??07/28/2024:?114.1 Weight?Post?(kg) ??08/04/2024:?108.2 ??08/01/2024:?110.5 ??07/28/2024:?109.4 PWV?(kg) ??08/04/2024:?-1.8 ??08/01/2024:?0.5 ??07/28/2024:?-0.6 UF?Rate?(mL/kg/hr) ??08/04/2024:?10.6 ??08/01/2024:?8.1 ??07/28/2024:?10.6 ADEQUACY?ASSESSMENT spKt/V,?URR ??07/16/2024:?1.42,?70.0 ??06/13/2024:?1.46,?70.0 ??05/14/2024:?1.49,?72.0 ACCESS?ASSESSMENT ??Access?Type:?CVCatheter ??Access?SubType:?Tunneled ??Access?Status:?Active?(In?Use)?-?09/24/2023 ??Access?Location:?Chest ??Placed:?--/--/---- ANEMIA?ASSESSMENT HGB ??08/01/2024:?10.2 ??07/23/2024:?10.7 ??07/16/2024:?11.2 ?? Ferritin ??06/25/2024:?585.0 ??06/01/2024:?291.0 ??04/30/2024:?423.0 Iron?Sucrose?(Venofer)?(mg) ??08/01/2024:?50 ??07/25/2024:?50 ??07/16/2024:?50 BMM?ASSESSMENT PTH,?Intact ??06/25/2024:?2209.0 ??06/01/2024:?2402.0 ??04/30/2024:?1982.0 ?? Calcium,?Phosphorus ??07/02/2024:?-,?8.7 ??06/25/2024:?9.1,?9.3 ??06/01/2024:?8.0,?10.0 Vitamin?D?(Calcitriol)?Oral?(mcg) ??08/04/2024:?0.5 ??08/01/2024:?0.5 ??07/28/2024:?0.5 NUTRITION?ASSESSMENT Potassium,?Albumin ??07/02/2024:?4.9,?- ??06/25/2024:?6.0,?3.9 ??06/08/2024:?5.1,?- ?? eNPCR ??07/16/2024:?1.03 ??06/13/2024:?0.91 ??05/14/2024:?0.96 PHYSICAL?EXAM Exam?Not?Performed. DIAGNOSIS Chief?Complaint:?[email or web address]?End?stage?renal?disease Patient?data?updated?08/05/2024?at?12:17?PM Signed?By:?Lan,?Jerry,???on?08/05/2024?12:18:27?PM END OF DOCUMENT
--- OUTSIDE RECORDS SUMMARY | 2024-09-02 17:14 | XMS_ITS | Encounter Summary ---
Author Organization [facility] Address [address] [place] [address] Phone Care Team Providers Care Wet Press Tender Name Role Phone Medina Ren ROLL TRUCKER Primary Care Provider [phone] Reason for Visit * Reason Comments Med Refill Encounter Details Date Type Department Care Team (Late st Contact Info) Description 03/05/2021 Refill [facility] [address] [place] [address] Jerry Montenegro MD Social History [...] on filedocumented in this encounter Care Teams Wet Press Tender Relationship Specialty Start Date End Date Medina Ren NP [address] [place] [phone] PCP - General Nurse Practitioner 01/03/21 documented as of this encounter
--- OUTSIDE RECORDS SUMMARY | 2024-09-02 17:14 | XMS_ITS | Encounter Summary ---
Author Organization [facility], Address [address] [place] [address] Phone Care Team Providers Care Counter Waitress/Waiter Name Role Phone Medina Ren NP Primary Care Provider [phone] [phone] Encounter Details Date Type Department Care Team (Late st Contact Info) Description 08/13/2024 Orders Only [facility] [address] [place] [address] Cooper Mena MD [address] [place] [phone] Social History Tobacco Use Types Packs/Day Years [...] Date/Time Associated Diagnosis Comments HD KINETICS Routine 08/13/2024 POST CHEMISTRY Routine 08/13/2024 HEMATOLOGY Routine 08/13/2024 CHEMISTRY Routine 08/13/2024 documented in this encounter Results * HD KINETICS (08/13/2024) % Urea Reduction 68 65 - 80 % [facility] 08/13/2024 08/15/2024 9:4 3 AM EST Narrative Resulting Agency Comment Specimen source: Plasma Cooper Mena MD LAB BLOOD ORDERABLES Final Re sult Performing Organization Address [facility] de Phone Number [facility] See order comments or contact performing lab Unknown, [place] * POST CHEMISTRY (08/13/2024) BUN Post Dialysis 12 6 - 19 mg/dL [facility] 08/13/2024 08/15/2024 9:4 3 AM EST Narrative [facility] - 08/15/2024 Unless otherwise specified, test(s) performed at: [facility], [address] [place], [place] [phone] CLEAT MAKER: Reece Sexton M.D. For any questions, please call customer service at FREQUENCY:OTHER Resulting Agency Comment Specimen source: Plasma Cooper Mena MD LAB BLOOD ORDERABLES Final Re sult Performing Organization Address [facility] de Phone Number [facility] See order comments or contact performing lab Unknown, [place] * (ABNORMAL) [facility] (08/13/2024) BUN 38(H) 6 - 19 mg/dL [facility] 08/13/2024 08/14/2024 12: 31 PM EST Narrative [facility] - 08/15/2024 Unless otherwise specified, test(s) performed at: [facility], [address] [place] [address] CLEAT MAKER: Reece Sexton M.D. For any questions, please call customer service at FREQUENCY:OTHER Resulting Agency Comment Specimen source: Serum Cooper Mena MD LAB BLOOD ORDERABLES Final Re sult Performing Organization Address [facility] de Phone Number [facility] See order comments or contact performing lab Unknown, [place] * (ABNORMAL) HEMATOLOGY (08/13/2024) Hemoglobin 10.6(L) 12.0 - 16.0 g/dL [facility] Hemoglobin x 3 31.8(L) 36.0 - 48.0 % [facility] 08/13/2024 08/14/2024 10: 22 AM EST Narrative [facility] - 08/14/2024 Unless otherwise specified, test(s) performed at: [facility], [address] [place] [id number] CLEAT MAKER: Reece Sexton M.D. For any questions, please call customer service at FREQUENCY:OTHER Resulting Agency Comment Specimen source: Blood Cooper Mena MD LAB BLOOD ORDERABLES Final Re sult [facility] See order comments or contact performing lab Unknown, [place] documented in this encounter Visit Diagnoses Not on filedocumented in this encounter Care Teams Counter Waitress/Waiter Relationship Specialty Start Date End Date Medina Ren NP [address] [place] [id number] PCP - General Nurse Practitioner 01/03/21 documented as of this encounter
--- OUTSIDE RECORDS SUMMARY | 2024-09-02 17:14 | XMS_ITS | Encounter Summary ---
Author Organization [facility] Address [address] [place] [address] Phone Care Team Providers Care Electrophysiology Scientist Name Role Phone Medina Ren COMMUTATOR PRESSER Primary Care Provider [phone] Reason for Visit * Reason Comments Med Refill Encounter Details Date Type Department Care Team (Late st Contact Info) Description 09/06/2022 Refill [facility] [address] [place] [address] Chan Magaña MD Social History [...] on filedocumented in this encounter Care Teams Electrophysiology Scientist Relationship Specialty Start Date End Date Medina Ren NP [address] [place] [id number] PCP - General Nurse Practitioner 01/03/21 documented as of this encounter
== END 2024-09-02 13:53 | disposition home or self-care (01) ==
LOC: HO.MAMMO 13:52
PROVIDERS: Visit Provider Family Medicine
DX: M81.0 Age-related osteoporosis without current pathological fracture (principal)
CPT/HCPCS: 77080

== ENCOUNTER → 2024-09-02 14:00 | Outpatient (BNV) | payer OTHER, SELFPAY | PROVIDERS: Visit Provider Radiology Diagnostic Radiology | DX: E28.39 Other primary ovarian failure (principal) | CPT/HCPCS: 77080 ==

== ENCOUNTER 2024-09-18 09:28 | Outpatient (AMB) | payer OTHER, SELFPAY ==
[2024-09-18 09:46] VITALS: BP 140/92; PULSE 92; O2SAT 98
--- NOTE | 2024-09-18 09:46 | MHC.OFFVIS ---
Vital Signs 09/18/24 09:46 Height 5 ft 6 in BP 140/92 H Blood Pressure Location Rt brachial Position Sitting Pulse 92 Pulse Source Pulse Oximeter Pulse Oximetry (%) 98 Oxygen Delivery Method Room Air Intake Visit Reasons: Follow Up Intake Note: Patient following up EMG/Nerve conduction done 04/03/24. PT notes scanned Allergies Penicillins Allergy (Intermediate, Verified 09/18/24 09:49) compromises mental health Medication List - Last Reconciled 09/18/24 by MERLYN Mark albuterol sulfate 90 mcg/actuation (Ventolin HFA) 2 puffs PO Q4H PRN 1 month aspirin 81 mg PO DAILY 90 days atorvastatin 80 mg PO DAILY 90 days blood sugar diagnostic (FreeStyle Lite Strips) Use to check blood sugar 4 times daily, before mealtimes and bedtime. blood-glucose meter (FreeStyle Lite Meter kit) Use to check blood sugar 4 times daily, before mealtimes and bedtime. blood-glucose sensor (TamrStyle Fan 3 Sensor device) As directed blood-glucose,air valve mechanic,cont (FreeStyle Fan 3 [place]) As directed calcitriol 0.25 mcg PO TUTHSA cholecalciferol (vitamin D3) 50 mcg PO DAILY clonazepam 0.5 mg PO TID PRN 30 days diclofenac sodium 1% 4 grams topical QID 30 days inhalational spacing device (Aerochamber MV spacer) As directed insulin aspart U-100 (Novolog FlexPen U-100 Insulin aspart) 1 sliding scale dose subcut USEASDIRECTD 30 days insulin degludec (Tresiba FlexTouch U-200 insulin) 20 units (0.1 mL) subcut BEDTIME 30 days insulin syringe-needle U-100 (BD Insulin Syringe Ultra-Fine) USE 3 TIMES A DAY lancets (FreeStyle Lancets) Use to check blood sugar 4 times daily, before mealtimes and bedtime. montelukast 10 mg PO BEDTIME pen needle, diabetic (BD Ultra-Fine [place] Pen Needle) As directed four times a day sevelamer carbonate 800 mg PO TIDWM PRN trazodone 300 mg PO BEDTIME HPI Comments Details: 43-yr-old female presents for neurological evaluation of RLE weakness. She did PT, and started to feel stronger, however then she developed bilateral, R > L, heel pain so she has not been able to really maintain doing the exercises- but does try to do some. Pt reports she is having increased bilateral, right greater than left, foot pain, specifically as if nails are coming up through her heel into her calves. This occurs whenever she stands up or puts pressure on the heel. Has to sleep with heels floated. She has never had this pain before. She feels the more weight she loses, the worse her heel pain becomes. Tried vibration device- but this did not help. Tries to stretch, but this only helps for a few seconds. 04/03/2024: IMPRESSION: 1. This is an abnormal study. 2. Nerve conduction results suggestive of sensorimotor peripheral neuropathy. 3. Cannot completely rule out lumbar radiculopathy with incomplete needle EMG. Initial HPI 03/05/2024: Pt does have a complicated past medical history including uncontrolled type 1 diabetes with ESRD on dialysis- last HgA1C 6.3%, diabetic polyneuropathy, hypertension, hyperlipidemia, mood disorder, CAD with history of NSTEMI, h/o cauda equina syndrome with chronic bilateral lower extremity weakness, diabetic gastroparesis, moderate persistent asthma, obesity. Pt reports she has chronic degenerative spinal disease. Notes, September 2023 abd XR showed degenerative changes in the hips. She reports she has had low back pain her entire life, which she attributed to her weight. She has always prone to joint dislocations. She reports in 2004, she had increased low back pain, hip pain, loss of B&B retention, and BLE became paralyzed, lower body numbness- could not feel being catheterized, which led to a lumbar L4-L5 discetomy in 2004 in [facility], which required rehab x's 2 months (in [place]) to re-learn how to walk, regain B&B control, and sensation returned but never back to baseline. Thereafter, she did continue to low back pain but this worsened and developed hip pain again w/ urinary/bowel retention, and thus underwent lumbar L3-L4 laminectomy/discectomy in 2011 at [facility]. She states this recovery was easier than in 2005. She was able to walk the following day after that surgery. From there, she states she was able to walk with walker to cane then back to not using any assertive device at all, was still needing enemas/bowel regimen for constipation management, and using OTC analgesics for back pain prn. Then last September 2022, she woke up one day, with RLE weakness w/ a leg . She had hospital eval. Work-up was concerning for osteomyelitis, however biopsy was negative and was dx'd w/ advanced degenerative disc disease. Since, she has been in and out of the hospital r/t complications from ESRD on HD and cardiac dz- had NSTEMI in Jul 2023 d/t type I diabetes and pt believes h/o high dose lithium use as a teenager (feels was mis-diagnosed as having bipolar type II). She states she continues to have RLE weakness. She does note a lateral distal thigh lump in the skin. She is feeling more BLE pain- occasionally sharp especially when 1st putting her feet on the floor, and aching throughout the day. From the soles of her Right foot w/ exception of 1st toe, can feel the temperature and the floor. States sensation is hypersensitive to light touch, clipping toenails, the seem of her socks. She is now taking phosphorous binder which is helping w/ her BM. She has no sensation to have BM other than a low back pain sensation. Trying to eat more high fiber vegetables. Uses diclofenac gel prn which helps. Has tried Gabapentin in the past- ineffective and not well-tolerated. She does endorse R > L distal swelling, some discoloration- patchy at times, She denies skin ulcers. She does endorse always being hyperflexible. She always been able to touch the ground w/ flat hands, could do the splits, double jointed fingers. Could never hyperextend her elbows. [facility] Medical History 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 Autism Coronary artery disease Uncontrolled diabetes mellitus with hyperglycemia, with long-term current use of insulin Adrenal incidentaloma ESRD needing dialysis NSTEMI (non-ST elevated myocardial infarction) MDD (major depressive disorder) Hyperlipidemia due to type 1 diabetes mellitus Diabetic retinopathy Cauda equina syndrome Anasarca associated with disorder of kidney DM gastroparesis Abnormal abdominal MRI Hearing loss in right ear Hearing loss in left ear RSV infection Hypertensive urgency Diabetes mellitus type 1, uncontrolled Gastroparesis Moderate persistent asthma, uncomplicated Chronic GERD Cyclic vomiting syndrome Surgical History AVF (arteriovenous fistula) Previous back surgery Family History Father Diabetes Paternal Grandfather Diabetes Mother No known problems Social History Housing: Apartment Alcohol intake: unknown Patient Tobacco Use Status: Former Tobacco user e-Cigarette/Vaping Use: Never Used Second Hand Smoke Exposure: No Substance Use Type: Marijuana Advance Directives Date on File: 08/31/22 service: No Current occupational status: disabled Current occupational exposures/hazards: No Cognitive needs: No Hearing needs: No Vision needs: No Physical Exam Vital Signs: Last Vital Signs Pulse 92 09/18/24 09:46 BP 140/92 H 09/18/24 09:46 Pulse Ox 98 09/18/24 09:46 Oxygen Delivery Method Room Air 09/18/24 09:46 Const General: cooperative and no acute distress Orientation/consciousness: patient oriented x3 HEENT Head: Yes normocephalic Resp Effort & Inspection: normal respiratory effort and able to speak in complete sentences Neuro Other: Edentulous Slightly slurred speech- pt attributes to being edentulous Sitting upright in wheelchair General: patient oriented x3 Psych Appearance: grossly normal Mental Status: mental status grossly normal Affect: normal affect Attitude: cooperative Thought content: Normal thought content present Assessment & Plan Assessment & Plan (1) Heel pain, bilateral: Code(s): M79.671 - Pain in right foot; M79.672 - Pain in left foot Category: Medical (2) Lower extremity weakness: Code(s): R29.898 - Other symptoms and signs involving the musculoskeletal system Category: Medical (3) Spinal stenosis of lumbar region: Code(s): M48.061 - Spinal stenosis, lumbar region without neurogenic claudication Category: Medical (4) Gait difficulty: Code(s): R26.9 - Unspecified abnormalities of gait and mobility Category: Medical (5) Neuropathic pain of both legs: Code(s): G57.93 - Unspecified mononeuropathy of bilateral lower limbs Category: Medical Plan Reviewed recent BLE EMG/NCS results, which showed sensorimotor peripheral neuropathy. And could not completely rule out lumbar radiculopathy due to incomplete needle EMG. Likely finding of sensorimotor peripheral neuropathy is secondary to chronic diabetes and ESRD. She does have known lumbar degenerative disc disease. Discussed that it is reassuring that patient had begun to gain strength which starting PT, however this effect was not maintained due to the onset of bilateral heel pain. As the heel pain is preventing patient for making progress in her bilateral lower extremity weakness, patient is advised to undergo: XR bilateral calcaneus Podiatry consult Will follow-up upon review of above and patient to follow-up in clinic in 6 months or sooner prn. Orders: Orders XR Calcaneus Christiano min 2V 09/18/24 M79.671 - Pain in right foot, M79.672 - Pain in left foot Referrals Podiatry Referral M79.671 - Pain in right foot, M79.672 - Pain in left foot Coding Level of Care Code Est Pt Level 4 (00727) Diagnoses Heel pain, bilateral M79.671; M79.672 Lower extremity weakness R29.898 Spinal stenosis of lumbar region M48.061 Gait difficulty R26.9 Neuropathic pain of both legs G57.93
--- OUTSIDE RECORDS SUMMARY | 2024-09-18 10:24 | XMS_ITS | Clinical Summary ---
Author Organization [facility] Address [address] [place] [address] Care Team Providers Care Makeup Sales Advisor Name Role Phone Medina Ren NP Primary Care Provider [phone] Allergies No known active allergies Medications Medication [...] place to sleep or slept in a jail (including now)? No 09/03/2022 Sex and Gender [...] 65 - 99 mg/dL 09/05/2022 8:57 AM [facility] Comment:Fasting: <100 mg/dL, Non-Fasting: <200 mg/dL (ADA 2005) Blood Urea Nitrogen (BUN) 66(H) 8 - 21 mg/dL 09/05/2022 8:57 AM [facility] Creatinine 9.8(H) 0.4 - 1.1 mg/dL 09/05/2022 8:57 AM [facility] eGFR 5(L) >59 09/05/2022 8:57 AM [facility] Comment: CKD-EPI (2021) in mL/min/1.73 sq meters. Reported eGFR is based on the CKD-EPI equation that does not use a race coefficient as of 08/15/2022 Sodium 139 136 - 145 mmol/L 09/05/2022 8:57 AM T [facility] Potassium 4.5 3.4 - 5.3 mmol/L 09/05/2022 8:57 AM [facility] Chloride 98 98 - 107 mmol/L 09/05/2022 8:57 AM [facility] CO2 20(L) 22 - 33 mmol/L 09/05/2022 8:57 AM [facility] Anion Gap 21(H) 7 - 17 09/05/2022 8:57 AM [facility] Calcium 9.4 8.7 - 10.5 mg/dL 09/05/2022 8:57 AM [facility] BUN/Creatinine Ratio 7(L) 10.0 - 25.0 Ratio 09/05/2022 8:57 AM [facility] Blood specimen (specimen) (Plasma/Serum) 09/05/2022 7:48 AM EDT 09/05/2022 8:28 AM EDT September Asaf DO LAB BLOOD ORDERABLES HOSPITAL LAB See Below [address] [address] * (ABNORMAL) Hemoglobin A1c with Estimated Average Glucose (09/01/2022 6:06 AM EDT) Hemoglobin A1C 6.5(H) <5.7 % 09/01/2022 8:23 AM T [facility] Comment: A1c% ? Interpretation 5.7 - 6.0 ?Increase risk of diabetes 6.1 - 6.4 ?Higher risk of diabetes > or = 6.5 ?? Consistent with diabetes Diabetes Care, 33(Supp 1):S1-S61, 2010 Estimated Average Glucose 140 mg/dL 09/01/2022 8:23 AM [facility] Blood specimen (specimen) Blood specimen / Unknown 09/01/2022 6:06 AM EDT 09/01/2022 6:11 AM EDT Janice Smalls MD LAB BLOOD ORDERABLES [facility]OSPITAL LAB See Below [place] [address] [place] [address] from Last 3 Months or Most Recently Relevant to Health Maintenance Advance Directives * Full Code (Latest Code Status on File) Date Activated Date Inactivated Comments 09/01/2022 4:52 AM Care Teams Makeup Sales Advisor Relationship Specialty Start Date End Date Medina Ren NP [address] [place] [address] PCP - General Family Medicine 08/31/22
--- OUTSIDE RECORDS SUMMARY | 2024-09-18 10:24 | XMS_ITS | Encounter Summary ---
Author Organization [facility] Address [address] [facility] [address] [place] [address] Phone Care Team Providers Care Enterprise Solutions Architect Name Role Phone Medina Ren ATHLETIC EQUIPMENT CUSTODIAN Primary Care Provider [phone] Encounter Details Date Type Department Care Team ([facility] st Contact Info) Description 08/22/2021 Office Communication [facility] [address] [facility] [address] [place] [phone] Rachelle Lui, RN [address] [facility] [place] [place] [phone] Social History Tobacco Use Types Packs/Day Years [...] on filedocumented in this encounter Care Teams Enterprise Solutions Architect Relationship Specialty Start Date End Date Medina Ren NP [address] [place] [id number] PCP - General Nurse Practitioner 01/03/21 documented as of this encounter
--- OUTSIDE RECORDS SUMMARY | 2024-09-18 10:24 | XMS_ITS ---
Author Name Amparo, Clinic Address [address] [place] [address] Phone [phone] Organization [facility] e, NA DOCUMENT DISCLAIMER Multiple document versions may exist, please be sure you review the latest version. The information in the [facility] Continuity of Care Document represents a summary [...] September 21, 2023 ALLERGIES AND ADVERSE REACTIONS Substance Reaction Severity Status PENICILLINS Unknown Active SOCIAL HISTORY Tobacco Use Status Tobacco Type Unknown if ever consumed tobacco - Caregiver Characteristics No Information Available Characteristics of Home environment No Information Available Gender and Sex Information Gender Identity Sexual Orientation Female Homosexual - lesbian /morrell MEDICATIONS Prescribed Medications for Dialysis Treatments Medication Instructions Dosage Route Start Date End Date [facility] Heparin Sodium (Porcine) 1,000 Units/mL Catheter Lock [...] September 26, 2023 September 24, 2024 Active Midodrine HCl (Proamatine) PRN-may repeat x1 5 mg Oral January 23, 2024 January 21, 2025 Active Midodrine HCl (Proamatine) PRN-may repeat x1 5 mg Oral January 23, 2024 January 21, 2025 Active Vitamin D (Calcitriol) Oral During Dialysis, Every Treatment 0.5 mcg Oral October 31, 2023 October 29, 2024 Active Iron Sucrose (Venofer) During Dialysis, 3X Week 100 mg Intravenous - push August 08, 2024 August 29, 2024 Discontinued Mircera Every 4 weeks 75 mcg Intravenous - push August 27, 2024 August 26, 2025 Discontinued Home Medications Medication Instructions Dosage Route Start Date End Date [facility] albuterol sulfate 90 mcg/actuation Inhale using inhaler every four to six hours as needed 2 puff INHALATION October 08, 2023 Active Aspirin Childrens 81 mg Take by mouth once a day 1 tablet ORAL October 08, 2023 Active atorvastatin 80 mg Take by mouth once a day 1 tablet ORAL December 07, 2023 Active clonazepam 0.5 mg Take by mouth [...] 100 unit/mL Inject subcutaneously once a day 20 unit SUBCUTANEOUS August 29, 2024 Active VITAL SIGNS Post-Treatment Vital Signs Vital Sign Value Date / Time Blood Pressure-sitting 95/52 mmHg September 17, 2024 12:25 PM Blood Pressure-standing 108/68 mmHg September 12:25 PM Heart Rate 105 beats per minute September 17 12:25 PM Respiratory Rate 16 breaths per minute September 17, 2024 12:25 PM Temperature 96.0 deg. F September 17, 2024 1 2:25 PM Weight Vital Sign Value Date / Time Estimated Dry Weight 108.5 kg August 20 11:59 PM Pre-Dialysis 111.50 kg September 17, 2024 1 2:25 PM Post-Dialysis 108.30 kg September 17, 2024 1 2:25 PM Other Other Value Date / Time Height 165 cm September 21, 2023 1 2:00 AM Body Mass Index 39.85 kg/m2 September 10, 2024 0 3:20 PM HEALTH CONCERNS Tuberculosis Testing TST Date Administered TST Date Read TST Result 09/26/2023 09/28/2023 Negative (<5) mm LAB RESULTS Hematology Result Type Result Value Relevant Referen ce Range Interpretation Date Ferritin 343 ng/mL 10 - 291 ng/mL High March TIBC (Calc) 218 mcg/dL 185 - 515 mcg/dL - March 26, 2024 Transferrin Sat. (Calc) 33 % 20 - 55 % - March 26, 2024 UIBC/TIBC 146 mcg/dL 155 - 355 mcg/dL Low March 26, 2024 WBC (No Diff) 5.51 1000/mcL 4.80 - 10.80 1000/mcL - March 26, 2024 Transferrin Sat. (Calc) 39 % 20 - 55 % - April 30 TIBC (Calc) 227 mcg/dL 185 - 515 mcg/dL - 2023 UIBC/TIBC 139 mcg/dL 155 - 355 mcg/dL Low April 30, 2024 Ferritin 423 ng/mL 10 - 291 ng/mL High April 122023 Transferrin Sat. (Calc) 17 % 20 - 55 % Low June 01 4 UIBC/TIBC 165 mcg/dL 155 - 355 mcg/dL - June 01, 2024 TIBC (Calc) 199 mcg/dL 185 - 515 mcg/dL - 2023 Ferritin 291 ng/mL 10 - 291 ng/mL - May 122023 Hemoglobin x 3 32.7 % 36.0 - [...] - 48.0 % Low July 02, 2024 Hemoglobin x 3 32.7 % 36.0 - 48.0 % Low July 09, 2024 Hemoglobin x 3 33.6 % 36.0 - 48.0 % Low Februar y 2024 Hemoglobin x 3 32.1 % 36.0 - 48.0 % Low uar 2024 Ferritin 477 ng/mL 10 - 291 ng/mL High July 132024 Transferrin Sat. (Calc) 21 % 20 - 55 % - August 01 TIBC (Calc) 196 mcg/dL 185 - 515 mcg/dL - uar 2024 UIBC/TIBC 155 mcg/dL 155 - 355 mcg/dL - August 01, 2024 Iron 41 mcg/dL 30 - 160 mcg/dL - August 01, 2024 Hemoglobin x 3 30.6 % 36.0 - 48.0 % Low uar 2024 Hemoglobin x 3 32.4 % 36.0 - 48.0 % Low Februar 2024 Hemoglobin x 3 31.8 % 36.0 - 48.0 % Low August Hemoglobin x 3 30.6 % 36.0 - 48.0 % Low August 092024 HGB 10.2 g/dL 12.0 - 16.0 g/dL Low August Ferritin 752 ng/mL 10 - 291 ng/mL High August 27, 2024 Transferrin Sat. (Calc) 34 % 20 - 55 % - August 27, 2024 HGB 11.1 g/dL 12.0 - 16.0 g/dL Low August Hemoglobin x 3 33.3 % 36.0 - 48.0 % Low August 092024 Iron 74 mcg/dL 30 - 160 mcg/dL - August 27, 2024 TIBC (Calc) 218 mcg/dL 185 - 515 mcg/dL - August 092024 UIBC/TIBC 144 mcg/dL 155 - 355 mcg/dL Low August HGB 12.1 g/dL 12.0 - 16.0 g/dL - August Hemoglobin x 3 36.3 % 36.0 - 48.0 % - August 102024 HGB 12.1 g/dL 12.0 - 16.0 g/dL - September Hemoglobin x 3 36.3 % 36.0 - 48.0 % - September Metabolic/Renal Result Type Result Value Relevant Referen ce Range Interpretation Date Hemoglobin A1c 7.1 % 4.8 - 5.9 % High March 112023 Potassium 6.0 mEq/L 3.5 - 5.1 mEq/L [...] 65 - 80 % - July 16 Creatinine, Serum 14.31 mg/dL 0.60 - 1.30 mg/dL High August 01, 2024 Bicarbonate 17 mEq/L 22 - 29 mEq/L Low July 132024 Potassium 5.8 mEq/L 3.5 - 5.1 mEq/L High August 01, 2024 Sodium 136 mEq/L 136 - 145 mEq/L - August 01, 2024 Potassium 4.9 mEq/L 3.5 - 5.1 mEq/L - August 11, 2024 URR, Calc 68 % 65 - 80 % - August 13, 2024 BUN, Post 12 mg/dL 6 - 19 mg/dL - August 13 25 BUN 38 mg/dL 6 - 19 mg/dL High August 13 Potassium 5.0 mEq/L 3.5 - 5.1 mEq/L - August 18, 2024 BUN 79 mg/dL 6 - 19 mg/dL High August 20 25 URR, Calc 71 % 65 - 80 % - August 20, 2024 BUN, Post 23 mg/dL 6 - 19 mg/dL High August 20 25 Potassium 5.2 mEq/L 3.5 - 5.1 mEq/L High August 25, 2024 Creatinine, Serum 11.10 mg/dL 0.60 - 1.30 mg/dL High August 27, 2024 Sodium 140 mEq/L 136 - 145 mEq/L - August 27, 2024 Potassium 5.0 mEq/L 3.5 - 5.1 mEq/L - August 27, 2024 Bicarbonate 20 mEq/L 22 - 29 mEq/L Low August 27, 2024 Potassium 5.5 mEq/L 3.5 - 5.1 mEq/L High September 01, 2024 URR, Calc 68 % 65 - 80 % - September 10, 2024 BUN, Post 31 mg/dL 6 - 19 mg/dL High September 10 BUN 96 mg/dL 6 - 19 mg/dL High September 10 HD Adequacy Result Type Result Value Relevant Referen ce Range Interpretation Date Krt/V 0.00 No Reference Ran ge Provided - April 16, 2024 Krt/V 0.00 No Reference Ran ge Provided - April 30, 2024 Krt/V 0.00 No Reference Ran ge Provided - May 04, 2024 Krt/V 0.00 No Reference Ran ge Provided - May 14, 2024 Krt/V 0.00 No Reference Ran ge Provided - June 13, 2024 wstdKt/V 2.4 [...] Reference Range Provided - July 16, 2024 wstdKt/V, residual 0.0 No Reference Range Provided - August 13, 2024 spKt/V (Daugirdas II) 1.34 No Reference Range Provided - August 13, 2024 wstdKt/V without residual 2.3 No Reference Range Provided - August 13, 2024 eKt/V ([place]) 1.17 No Reference Range Provided - August 13, 2024 spKt/V Gotch 1.37 No Reference Ran ge Provided - August 13, 2024 wstdKt/V 2.3 No Reference Ran ge Provided - August 13, 2024 Krt/V 0.00 No Reference Ran ge Provided - August 13, 2024 spKt/V (Daugirdas II) 1.46 No Reference Range Provided - August 20, 2024 wstdKt/V without residual 2.4 No Reference Range Provided - August 20, 2024 spKt/V Gotch 1.52 No Reference Ran ge Provided - August 20, 2024 wstdKt/V 2.4 No Reference Ran ge Provided - August 20, 2024 eKt/V ([place]) 1.27 No Reference Range Provided - August 20, 2024 Krt/V 0.00 No Reference Ran ge Provided - August 20, 2024 wstdKt/V, residual 0.0 No Reference Range Provided - August 20, 2024 wstdKt/V 2.3 No Reference Ran ge Provided - September 10, 2024 wstdKt/V without residual 2.3 No Reference Range Provided - September 10, 2024 Krt/V 0.00 No Reference Ran ge Provided - September 10, 2024 eKt/V ([place]) 1.15 No Reference Range Provided - September 10, 2024 spKt/V (Daugirdas II) 1.31 No Reference Range Provided - September 10, 2024 wstdKt/V, residual 0.0 No Reference Range Provided - September 10, 2024 spKt/V Gotch 1.35 No Reference Ran ge Provided - September 10, 2024 Bone/Mineral Result Type Result Value Relevant Referen ce Range Interpretation Date Vitamin D 25 Hydroxy 15.2 ng/mL 30 - 100 ng/mL Low September 24, 2023 PTH-Intact, Plasma 2712 pg/mL 16 - 80 pg/mL High Mar [email or web address] PTH-Intact, Plasma 1982 pg/mL 16 - 80 pg/mL High Apr PTH-Intact, Plasma 2402 pg/mL 16 - 80 pg/mL High May Ca x P Product 85 0 - 54 High June Alkaline Phosphatase 239 U/L 35 - 104 U/L High [facility] 2024 Calcium, Total 9.1 mg/dL 8.4 - 10.2 mg/dL - Matthieu juan [email or web address] Phosphorus 9.3 mg/dL 2.6 - 4.5 mg/dL High June 112024 PTH-Intact, Plasma 2209 pg/mL 16 - 80 pg/mL High Jun Vitamin D 25 Hydroxy 21.0 ng/mL 30.0 - 100.0 ng/mL Low June 25, 2024 Corrected Ca x P Product 86 0 - 54 High June 25, 2024 Phosphorus 8.7 mg/dL 2.6 - 4.5 mg/dL High June 122024 PTH-Intact, Plasma 2757 pg/mL 16 - 80 pg/mL High Jul ruary 2024 Corrected Ca x P Product 109 0 - 54 High August 01 Ca x P Product 106 0 - 54 High July 132024 Phosphorus 12.1 mg/dL 2.6 - 4.5 mg/dL High August 01, 2024 Calcium, Total 8.8 mg/dL 8.4 - 10.2 mg/dL - 2024 Phosphorus 8.2 mg/dL 2.6 - 4.5 mg/dL High August 08, 2024 PTH-Intact, Plasma 2252 pg/mL 16 - 80 pg/mL High Aug 2024 Calcium, Total 9.0 mg/dL 8.4 - 10.2 mg/dL - Robb 2024 Ca x P Product 90 0 - 54 High August 27, 2024 Phosphorus 10.0 mg/dL 2.6 - 4.5 mg/dL High August 27, 2024 Corrected Ca x P Product 92 0 - 54 High August 27, 2024 Liver/Nutrition Result Type Result Value Relevant Reference Range Interpre tation Date Glucose 83 mg/dL 70 - 100 mg/dL - June Albumin (BCG) 3.9 g/dL 3.5 - 5.2 g/dL - June 25, 2024 SGPT (ALT) 6 U/L 7 - 52 U/L Low June 25 25 eNPCR 1.03 No Reference Ran ge Provided - July 16, 2024 Glucose 136 mg/dL 70 - 100 mg/dL High July 132024 Albumin (BCG) 3.7 g/dL 3.5 - 5.2 g/dL - uar 2024 SGPT (ALT) 8 U/L 7 - 52 U/L - August 01 025 eNPCR 0.65 No Reference Ran ge Provided - August 13, 2024 eNPCR 1.26 No Reference Ran ge Provided - August 20, 2024 SGPT (ALT) 8 U/L 7 - 52 U/L - August 27, 2024 Glucose 122 mg/dL 70 - 100 mg/dL High August 27, 2024 Albumin (BCG) 3.8 g/dL 3.5 - 5.2 g/dL - August 092024 eNPCR 1.38 No Reference Ran ge Provided - September 10, 2024 Immunochemistry Result Type Result Value Relevant Reference Range Interpre tation Date HCV s/co ratio 0.08 0.00 - 0.79 - September 24, 2023 HCV s/co ratio 0.06 0.00 - 0.79 - December 26, 2023 HCV s/co ratio 0.04 0.00 - 0.79 - June 112024 Trace Elements Result Type Result Value Relevant Reference Range Interpre tation Date Aluminum < 5 mcg/L 0 - 10 [...] R giles Provided - June 25, 2024 Hep B Surface Ag (HBsAg) Negative No Reference Range Provided - August 27, 2024 DIALYSIS PRESCRIPTION Conventional Hemodialysis Data Element Value Order Date/Time August 20, 2024 Frequency 3X Week Treatment Days MonWedFri Dialyzer 160NRe Optiflux Treatment Time (Total Minutes) 240 min Blood Flow Rate (mL/min) 450 mL/min Dialysate Flow Rate Manual 800 Estimated Dry Weight 108.5 kg Dialysate Concentrate 2.0 K, 2.50 Ca, 1. 0 Mg, 100 Dextrose ([id number]) Sodium (mEq/L) 138 mEq/L Bicarb Machine Setting [...] By Effective Date Resuscitation status Full Code Jerry Montenegro Sep 23, 2024 DIALYSIS TREATMENTS Conventional Hemodialysis Date Pre-Treatment Vitals Post-Treatment Josefina ls Duration (hr) BFR (mL/min) Dialysate Dialyzer Dialysis Access Meds Admin September 13, 2024 Weight 112.40 kg Weight 108.60 kg 04:02:00 360 2.0 K, 2.50 Ca, 1.0 Mg, 100 Dextrose ([id number]) 160nre Optifl ux Blood Pressure-sitting 116/65 mmHg Blood Pressure-sit ting 102/58 mmHg Heart Rate 78 beats per minute Blood Pressure-standi ng 95/64 mmHg Respiratory Rate 20 breaths per minute Heart Rate 71 beats per minute Temperature 98.4 deg. F Respiratory Rate 20 breaths per minute - - Temperature 97.7 deg. F September 15, 2024 Weight 111.20 kg Weight 109.00 kg 04:05:00 400 2.0 K, 2.50 Ca, 1.0 Mg, 100 Dextrose ([id number]) 160nre Optiflux Hemodialysis-CV Catheter-Tunneled, Chest, Right Subclavian Heparin Sodium (Porcine) 1,000 Units/mL Catheter Lock Arterial; 2000units,Arterial Red [place] Heparin Sodium (Porcine) 1,000 Units/mL Catheter Lock Venous; 2000units,Venous [place] Heparin Sodium (Porcine) 1,000 Units/mL Systemic; 5000units,Intravenous - push Vitamin D (Calcitriol) Oral; 0.5mcg,Oral Blood Pressure-sitting 112/66 mmHg Blood Pressure-sit ting 117/63 mmHg Heart Rate 85 beats per minute Heart Rate 64 beats per minute Respiratory Rate 16 breaths per minute Respiratory Rate 16 breaths per minute Temperature 97.0 deg. F Temperature 96.0 deg. F September 17, 2024 Weight 111.50 kg Weight 108.30 kg 04:07:00 400 2.0 K, 2.50 Ca, 1.0 Mg, 100 Dextrose ([id number]) 160nre Optiflux Hemodialysis-CV Catheter-Tunneled, Chest, Right Subclavian Heparin Sodium (Porcine) 1,000 Units/mL Catheter Lock Arterial; 2000units,Arterial [place] Heparin Sodium (Porcine) 1,000 Units/mL Catheter Lock Venous; 2000units,Venous [place] Heparin Sodium (Porcine) 1,000 Units/mL Systemic; 5000units,Intravenous - push Blood Pressure-sitting 102/52 mmHg Blood Pressure-sit ting 95/52 mmHg Blood Pressure-standing 108/67 mmHg Blood Pressure-st anding 108/68 mmHg Heart Rate 90 beats per minute Heart Rate 105 beat s per minute Respiratory Rate 16 breaths per minute Respiratory Rate 16 breaths per minute Temperature 96.6 deg. F Temperature 96.0 deg. F
--- OUTSIDE RECORDS SUMMARY | 2024-09-18 10:24 | XMS_ITS | Clinical Summary ---
Author Organization [facility] Address [address] [place] [address] Phone Care Team Providers Care Vp Platforms Name Role Phone Medina Ren NP Primary Care Provider [phone] Allergies Active Allergy Reactions Criticality Noted Date [...] tablet 1 10/09/2022 Active ergocalciferol 1.25 MG (45606 UT) capsule TAKE 1 CAPSULE BY MOUTH [...] and replete electrolytes as needed. CARE AT [facility] Last Assessment & Plan: Monitoring blood sugars closely as above. Will need to restart on her home regimen once her blood sugars have stabilized. We'll follow her BMP regularly and replete electrolytes as needed. Type 1 diabetes mellitus 11/02/2017 Overview (10/25/2020): CARE AT [facility] Last Assessment & Plan: Monitoring blood [...] Only [facility] [address] [place] [address] Cooper Mena MD 08/20/2024 Orders Only [facility] [address] [address] Cooper Mena MD 08/13/2024 Orders Only [facility] [address] [address] Cooper Mena MD 08/06/2024 Orders Only [facility] [address] [address] Cooper Mena MD 08/01/2024 Orders Only [facility] [address] [address] Cooper Mena MD 07/23/2024 Orders Only [facility] [address] [address] Cooper Mena MD 07/16/2024 Orders Only [facility] [address] [address] Cooper Mena MD 07/09/2024 Orders Only [facility] [address] [address] Cooper Mena MD 07/02/2024 Orders Only [facility] [address] [address] Cooper Mena MD 06/25/2024 Orders Only [facility] [address] [address] Cooper Mena MD from Last 3 Months Immunizations Immunization Administration Dates Next Due Influenza, Quadrivalent, Preservative [...] 12/16/2015, 11/25/2012, Additional history exists Pneumococcal Vaccine: Peds ( 0 to 5 Years) and At-Risk Patients (6 to 49 Years) (3 of 3 - PCV) 07/23/2019 07/23/2018, 12/19/2016 Diabetes: Ophthalmology Exam 07/09/2020 Diabetes: Pedal Pulse Checked 07/09/2020 Diabetes: Sensory Foot Exam 07/09/2020 Diabetes: Visual Foot Exam 07/09/2020 Diabetes: Hemoglobin A1C 09/23/2024 025, 03/26/2024, 12/26/2023, Additional history exists Influenza Vaccine (Season Ended) 2025 06/05/20 21, 07/23/2018 Procedures Procedure Name Priority Date/Time Associated Diagnosis [...] 06/25/2024 HEMATOLOGY Routine 06/25/2024 CHEMISTRY Routine 06/25/2024 from Last 3 Months Results * IMMUNO CHEMISTRY (08/27/2024) Only the most recent of3 resultswithin the time period is included. Hep B Surface Ag Negative Negative [facility] 08/27/2024 08/28/2024 10: 57 AM EDT Narrative Resulting Agency Comment Specimen source: Serum Cooper Mena MD LAB BLOOD ORDERABLES Final Re sult Performing Organization Address [facility] de Phone Number [facility] See order comments or contact performing lab Unknown, [place] * (ABNORMAL) HEMATOLOGY (08/27/2024) Only the most recent of10 resultswithin the time period is included. Hemoglobin 11.1(L) 12.0 - 16.0 g/dL [facility] Hemoglobin x 3 33.3(L) 36.0 - 48.0 % [facility] 08/27/2024 08/28/2024 8:3 4 AM EDT Narrative [facility] - 08/28/2024 Unless otherwise specified, test(s) performed at: [facility], [address] [place] [address] TEST DIRECTOR: Reece Sexton M.D. For any questions, please call customer service at FREQUENCY:MONTHLY Resulting Agency Comment Specimen source: Blood Cooper Mena MD LAB BLOOD ORDERABLES Final Re sult Performing Organization Address [facility] de Phone Number [facility] See order comments or contact performing [...] 08/28/2024 Unless otherwise specified, test(s) performed at: [facility], [address] [place] [address] TEST DIRECTOR: Reece Sexton M.D. For any questions, please call customer service at FREQUENCY:MONTHLY Resulting Agency Comment Specimen source: Serum Cooper Mena MD LAB BLOOD ORDERABLES Edited R esult - Final Performing Organization Address [facility]/ZIP Co de Phone Number [facility] See order comments or contact performing lab Unknown, [place] * HD KINETICS (08/13/2024) Only the most recent of2 resultswithin the time period is included. % Urea Reduction 68 65 - 80 % [facility] 08/13/2024 08/15/2024 9:4 3 AM EST Narrative Resulting Agency Comment Specimen source: Plasma Cooper Mena MD LAB BLOOD ORDERABLES Final Re sult Performing Organization Address City/[facility]/ZIP Co de Phone Number [facility] See order comments or contact performing lab Unknown, [place] * POST CHEMISTRY (08/13/2024) Only the most recent of2 resultswithin the time period is included. BUN Post Dialysis 12 6 - 19 mg/dL [facility] 08/13/2024 08/15/2024 9:4 3 AM EST Narrative [facility] - 08/15/2024 Unless otherwise specified, test(s) performed at: [facility], [address] [place], [place] [id number] TEST DIRECTOR: Reece Sexton M.D. For any questions, please call customer service at FREQUENCY:OTHER Resulting Agency Comment Specimen source: Plasma Cooper Mena MD LAB BLOOD ORDERABLES Final Re sult Performing Organization Address [facility] de Phone Number [facility] See order comments or contact performing lab Unknown, [place] * (ABNORMAL) SPECIAL CHEMISTRY (06/25/2024) Only the most recent of2 resultswithin the time period is included. Hemoglobin A1C 7.5(H) 4.8 - 5.9 % [facility] 06/25/2024 06/30/2024 11: 12 AM EST Narrative [facility] - 06/30/2024 Unless otherwise specified, test(s) performed at: [facility], [address] [place], [place] [id number] TEST DIRECTOR: Reece Sexton M.D. For any questions, please call customer service at FREQUENCY:MONTHLY Resulting Agency Comment Specimen source: Blood Cooper Mena MD LAB BLOOD BANK TEST ORDERABLE S Final Result Performing Organization Address [facility] de Phone Number [facility] See order comments or contact performing lab Unknown, [place] * TRACE ELEMENTS (06/25/2024) Aluminum <5 0 - 10 mcg/L [facility] Comment: This test was developed and its performance characteristics determined by [facility]. It has not been cleared or approved by the FDA. The laboratory is regulated under CLIA as qualified to perform high complexity testing. This test is used for clinical purposes. It should not be regarded as investigational or for research. 06/25/2024 06/30/2024 11: 11 AM EST Narrative [facility] - 06/30/2024 Unless otherwise specified, test(s) performed at: [facility], [address] [place], [place] [id number] TEST DIRECTOR: Reece Sexton M.D. For any questions, please call customer service at FREQUENCY:MONTHLY Resulting Agency Comment Specimen source: Serum us Cooper Mena MD LAB BLOOD ORDERABLES Final Re sult [facility] See order comments or contact performing lab Unknown, [place] from Last 3 Months Insurance [facility] ([id number]) [facility] ([id number]) Care Teams Vp Platforms Relationship Specialty Start Date End Date Medina Ren SCAGLIOLA MECHANIC [address] [place] [phone] PCP - General Nurse Practitioner 01/03/21
--- OUTSIDE RECORDS SUMMARY | 2024-09-18 10:25 | XMS_ITS | Encounter Summary ---
Author Organization [facility] Address [address] [place] [address] Phone Care Team Providers Care Oil Distributor Tender Name Role Phone Medina Ren PRODUCE SHIPPER Primary Care Provider [phone] Reason for Visit * Reason Comments Med Refill Encounter Details Date Type Department Care Team (Late st Contact Info) Description 09/06/2022 Refill [facility] [address] [place] [address] Chan Magaña MD Social History [...] on filedocumented in this encounter Care Teams Oil Distributor Tender Relationship Specialty Start Date End Date Medina Ren NP [address] [place] [id number] PCP - General Nurse Practitioner 01/03/21 documented as of this encounter
--- OUTSIDE RECORDS SUMMARY | 2024-09-18 10:25 | XMS_ITS | Clinical Summary ---
Author Organization [address] Address [address] [place] [phone] Phone Care Team Providers Care Site Specialist Name Role Phone Nicholas Yang MD Primary [...] 1 diabetes mellitus with other specified complication (CMS/HCC V24, CMS/HCC V28) USE 4 NEEDLES WITH INSULIN PENS DIRECTED [...] Box = Kit = EA 2 each 11 08/28/19 25 Active insulin degludec (TRESIBA FlexTouch [...] but she states she missed the dialysis. Assessment & Plan (09/05/2024 10:37 AM EDT): Most recent echocardiogram from March 2024 show a preserved LV systolic function and an EF of 55%. Aside from bilateral lower extremity edema, for which patient states is better than usual, she is not exhibiting any signs of fluid retention on physical exam. Unable to tolerate additional medical therapies due to low blood pressure at dialysis. No changes to current medical therapy. Acute hypoxic respiratory fa ilure ([facility] V24, [facility] V28) 09/14/2023 Atherosclerotic heart disease 09/14/2023 Assessment & Plan (09/05/2024 10:34 AM EDT): S/p NSTEMI in August 2023 and cardiac catheterization showing 30% stenosis in the LMCA, 95% stenosis in the mid LAD, 65% stenosis in the OM1, 45% stenosis in the OM2, 65% stenosis in the proximal subsection of the CX, 80% stenosis in the proximal RCA. She has not had any signs or symptoms of coronary insufficiency. Patient has made it clear that she does not wish to proceed with bypass surgery. She understands the implications of her decision. Her goal is to limit disease progression at this point. She is on aspirin and high-dose atorvastatin. She is not able to tolerate beta-ángel due to low blood pressures at dialysis. Will update lipid panel. Otherwise no changes to current medical therapies. For any chest pain/discomfort, especially if associated with exertion, that lasts longer than 10-15 minutes and does not resolve with rest, patient has been encouraged to seek immediate medical attention by calling 911. NSTEMI (non-ST elevated myoc ardial infarction) ([facility] V24, [facility] V28) 09/14/2023 Overview (03/25/2024): Last Assessment & Plan: With three-vessel coronary artery disease and ischemic cardiomyopathy. I do not think PCI is a good idea. So far, she has no angina symptoms. Unfortunately, she is quite adamant that she will not get any care in [facility]. I will try to refer her to Dr. Almanza in [facility] as long as her insurance allowed her. Will continue high-dose statin and aspirin. Will need to repeat lipid profile. Pulmonary edema 09/14/2023 Encounters Date Type Department Care Team Description 09/05/2024 9:20 AM EDT Office Visit [facility] [address] [place] [address] Isabel Davenport MD Ischemic cardiomyopathy (Primary Dx); Atherosclerosis of [place] coronary artery of [place] heart without angina pectoris 07/30/2024 Telephone [facility]ocr[facility] - [place] [address] [place], [place] [phone] Perri Loyola MD OFFICE NOTES 07/29/2024 4:00 PM EST Office Visit [facility] - [place] [address] [place], [place] [phone] Perri Loyola MD Type 1 diabetes mellitus with other specified complication ([facility] V24, [facility] V28) (Primary Dx) from Last 3 Months Medical History Medical History Date Comments Volume overload DX:Volume overlo ad Influenza DX:Influenza Hyperglycemia due to diabete s mellitus (CMS/[facility] V24, [facility] V28) DX:Hyperglycemia due to earlene betes mellitus ([facility]) Social History Tobacco Use Types [...] Sign Reading Time Taken Comments Blood Pressure 112/60 09/05/2024 9:10 AM EDT Pulse 70 09/05/2024 9:10 AM EDT Temperature 36.3 ??C (97.4 ??F) 07/29/2024 4:02 PM ES T Respiratory Rate 15 07/29/2024 4:02 PM EST Oxygen Saturation 96% 09/05/2024 9:10 AM EDT Inhaled Oxygen Concentration - - Weight 106 kg (234 lb) 09/05/2024 9:10 AM EDT Height 160 cm (5' 3 ) 09/05/2024 9:10 AM EDT Body Mass Index 41.45 09/05/2024 9:10 AM EDT Plan of Treatment Upcoming Encounters Date Type Department Care Team (Late st Contact Info) Description 02/26/2025 10:40 AM EDT Office Visit [facility] [address] [place] [address] Elicia Chan NP [address] [place] [phone] Health Maintenance Due Date Last Done Comments [...] age to complete this topic Meningococcal B Vaccine Aged Out No l onger eligible based on patient's age to complete this topic RSV Immunization Patients Under 20 months Aged Out No longer eligible based on patient's age to complete this topic Varicella Vaccines Aged Out No longer eligible based on patient's age to complete this topic Procedures Procedure Name Priority Date/Time Associated Diagnosis Comments ECG 12-LEAD Routine 09/05/2024 9:22 AM EDT Ischemic cardiomyopathy from Last 3 Months Results * ECG 12 lead (09/05/2024 9:22 AM EDT) Ventricular Rate ECG 70 BPM GEMUSE Atrial Rate 70 BPM GEMUSE P-R Interval 150 ms GEMUSE QRS Duration 106 ms GEMUSE Q-T Interval 416 ms GEMUSE QTc 449 ms GEMUSE P Wave [place] 25 degrees GEMUSE R [place] 26 degrees GEMUSE T [place] 20 degrees GEMUSE ECG Interpretation Normal sinus rhythm Possible Inferior infarct , age undetermined Abnormal ECG When compared with ECG of 18-APR-2013 16:18, Borderline criteria for Inferior infarct are now Present Nonspecific T wave abnormality no longer evident in Anterior leads Confirmed by Collette DAVENPORT, ISABEL ([id number]) on 09/05/2024 10:22:52 AM GEMUSE 09/05/2024 9:22 AM EDT 09/05/2024 10:22 AM EDT us Isabel Davenport MD ECG ORDERABLES Final Result GEMUSE from Last 3 Months Insurance [facility] Member Subscriber Plan / Payer (Ef fective 2022-Present) Name:Phoenix Leach Relation to Subscriber:Self Name:Phoenix Leach Payer ID:[id number] Group ID:[id number] Type:Not on file Address: [facility] [address] [address] Advance Directives Documents on File Type Date Recorded 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
--- OUTSIDE RECORDS SUMMARY | 2024-09-18 10:25 | XMS_ITS | Clinical Summary ---
Author Organization [facility] Address [address] [place] [address] Care Team Providers Care Low Voltage Technician Name Role Phone Lucy Pop THEATRICAL DRESSER Primary Care Provider [phone] Source Comments PLEASE NOTE, if this patient [...] Plan of Treatment Not on file Insurance [facility] Member Subscriber Plan / Payer (Ef fective 2015-Present) Name:Phoenix Leach Relation to Subscriber:Self Name:Phoenix Leach Payer ID:[id number] Group ID:Not on file Type:Indemnity Address: [facility] [id number] [address] [place] D[place] [facility] [place] [address] Care Teams Low Voltage Technician Relationship Specialty Start Date End Date Lucy Pop FNP [address] [place] [address] PCP - General 08/06/18
--- OUTSIDE RECORDS SUMMARY | 2024-09-18 10:25 | XMS_ITS | Encounter Summary ---
Author Organization [facility] Address [address] [facility] [address] [place] [address] Phone Care Team Providers Care Agriculture Professor Name Role Phone Medina Ren LINEN TECH Primary Care Provider [phone] Encounter Details Date Type Department Care Team ([facility] st Contact Info) Description 01/02/2022 Office Communication [facility] [address] [facility] [address] [place] [phone] Jihan Wilburn, [place] [address] [place] [phone] Social History Tobacco Use Types Packs/Day Years [...] on filedocumented in this encounter Care Teams Agriculture Professor Relationship Specialty Start Date End Date Medina Ren NP [address] [place] [phone] PCP - General Nurse Practitioner 01/03/21 documented as of this encounter
--- OUTSIDE RECORDS SUMMARY | 2024-09-18 10:25 | XMS_ITS | Encounter Summary ---
Author Organization [facility] Address [address] [place] [address] Phone Care Team Providers Care Recycling Worker Name Role Phone Medina Ren FRINGE WEAVER Primary Care Provider [phone] Reason for Visit * Reason Comments Med Refill Encounter Details Date Type Department Care Team (Late st Contact Info) Description 03/05/2021 Refill [facility] [address] [place] [address] Jerry Montenegro MD Social History [...] on filedocumented in this encounter Care Teams Recycling Worker Relationship Specialty Start Date End Date Medina Ren NP [address] [place] [id number] PCP - General Nurse Practitioner 01/03/21 documented as of this encounter
--- OUTSIDE RECORDS SUMMARY | 2024-09-18 10:25 | XMS_ITS ---
Author Name LanFeliceji Address [address] [place] [address] Phone [phone] Organization [facility], NA DOCUMENT DISCLAIMER Multiple document versions may exist, please be sure you review the latest version. The information in the [facility] Progress Note Document represents a providers documented clinical note containing certain health and medical information. It may not contain the complete medical history for the patient and should be independently verified. The represented time in the document is Eastern Time PROVIDER ROUNDING NOTE COMPREHENSIVE Patient:?Phoenix?Haylee,?1980,?44y,?F Dialysis?Location:?[facility] Attending?Concrete Batching Plant Operator:?Jerry?Lan Service?Date:?09/15/2024 Service?Provider:?Jerry?Lan,? I?met?face?to?face?with?the?patient?today. 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 TRANSPLANT Comments:?Needs?cardiac?work?up.?Has?an?appointment?with&#16 0;metals analyst?(?[facility]) DIALYSIS?PRESCRIPTION ??IHD?3x?Week?Start?date:?08/20/24 ??Dialyzer:?160NRe?Optiflux ??BFR:?450 ??DFR:?Manual?800 ??Potassium:?2.0 ??Sodium:?138 ??EDW:?108.5 ??Duration:?4:00 ??Calcium:?2.50 ??Bicarb:?36 ??Rx?updated?on:?08/18/2024 TREATMENT?ASSESSMENT Blood?pressure?controlled.?No?changes?indicated.? BP?Stand?Pre ??09/10/2024:?114/69 ??09/08/2024:?116/77 BP?Sit?Pre ??09/13/2024:?116/65 ??09/10/2024:?101/54 ??09/08/2024:?127/58 BP?Stand?Post ??09/13/2024:?95/64 ??09/10/2024:?96/71 ??09/08/2024:?102/70 BP?Sit?Post ??09/13/2024:?102/58 ??09/10/2024:?101/68 ??09/08/2024:?105/57 Tx?Duration ??09/13/2024:?4:02 ??09/10/2024:?4:05 ??09/08/2024:?4:05 Missed?Treatments 0?-?last?30?days 1?-?last?60?days 2/19?-?recent FLUID?ASSESSMENT Fluid?status?acceptable.?Interdialytic?weight?gain?acceptable.?Op timal?weight?discussed.? EDW?(kg) ??09/13/2024:?108.5 ??09/10/2024:?108.5 ??09/08/2024:?108.5 Weight?Pre?(kg) ??09/13/2024:?112.4 ??09/10/2024:?111.2 ??09/08/2024:?111.5 Weight?Post?(kg) ??09/13/2024:?108.6 ??09/10/2024:?108.6 ??09/08/2024:?109.0 PWV?(kg) ??09/13/2024:?0.1 ??09/10/2024:?0.1 ??09/08/2024:?0.5 UF?Rate?(mL/kg/hr) ??09/13/2024:?8.7 ??09/10/2024:?5.9 ??09/08/2024:?5.6 ADEQUACY?ASSESSMENT Adequacy?target?met.?Prescription?compliance?acceptable.?No?changes?indicated.? spKt/V,?URR ??09/10/2024:?1.31,?68.0 ??08/20/2024:?1.46,?71.0 ??08/13/2024:?1.34,?68.0 ACCESS?ASSESSMENT ??Access?Type:?CVCatheter ??Access?SubType:?Tunneled ??Access?Status:?Active?(In?Use)?-?09/24/2023 ??Access?Location:?Chest ??Placed:?--/--/---- Referral?made?for?access?revision/?intervention. ANEMIA?ASSESSMENT HGB?at?goal.?Iron?parameters?acceptable.?NAKITA?dose?adequate.& #160;No?changes?indicated.? HGB,?TSAT ??09/10/2024:?12.1,?- ??09/03/2024:?12.1,?- ??08/27/2024:?11.1,?34.0 ?? Ferritin ??08/27/2024:?752.0 ??08/01/2024:?477.0 ??06/25/2024:?585.0 Mircera,?IVP?(mcg) ??08/27/2024:?75 Iron?Sucrose?(Venofer)?(mg) ??08/29/2024:?100 ??08/27/2024:?100 ??08/25/2024:?100 BMM?ASSESSMENT PTH?elevated.?Calcium?controlled.?Phosphorus?elevated.?BMM?meds&# 160;adherence?not?acceptable.?Counseled?pt?on?meds?adherence.&#16 0;Diet?reviewed?with?patient.?Treatment?protocol?ordered.?Referre d?to?dietitian.? PTH,?Intact ??08/27/2024:?2252.0 ??08/01/2024:?2757.0 ??06/25/2024:?2209.0 ?? Calcium,?Phosphorus ??08/27/2024:?9.0,?10.0 ??08/08/2024:?-,?8.2 ??08/01/2024:?8.8,?12.1 Vitamin?D?(Calcitriol)?Oral?(mcg) ??09/13/2024:?0.5 ??09/10/2024:?0.5 ??09/08/2024:?0.5 NUTRITION?ASSESSMENT Potassium?controlled.?Albumin?controlled.?Referred?to?dietitian.? Potassium,?Albumin ??09/01/2024:?5.5,?- ??08/27/2024:?5.0,?3.8 ??08/25/2024:?5.2,?- ?? eNPCR ??09/10/2024:?1.38 ??08/20/2024:?1.26 ??08/13/2024:?0.65 PHYSICAL?EXAM Exam?Performed.?Vital?Signs?Reviewed.?Lungs?-?Clear.?CV&#160 ;-?Blood?pressure?noted.?CV?-?RRR.?EXT?-?No?edema.?EXT?-?No?ulcers. DIAGNOSIS Chief?Complaint:?N18.6?End?stage?renal?disease Patient?is?stable. Patient?data?updated?09/15/2024?at?4:19?PM Signed?By:?Lan,?Jerry,???on?09/15/2024?4:21:12?PM END OF DOCUMENT
--- OUTSIDE RECORDS SUMMARY | 2024-09-18 10:25 | XMS_ITS | Clinical Summary ---
Author Organization [facility] Address [address] [place] [address] Care Team Providers Care Lamination Spinner Name Role Phone Unavailable Primary Care Provider Unavailabl e Social History Tobacco Use Types Packs/Day Years Used Date Smoking Tobacco: Never Assessed Sex and Gender Information Value Date Recorded Sex Assigned at Not on file Gender Identity Not on file Sexual Orientation Not on file Plan of Treatment Not on file
== END 2024-09-18 10:29 | disposition home or self-care (01) ==
LOC: HO.HSMS 09:29
PROVIDERS: PCP Family Medicine; Visit Provider Nurse Practitioner Family
DX: M79.671 Pain in right foot (principal); M79.672 Pain in left foot; R29.898 Other symptoms and signs involving the musculoskeletal system; M48.061 Spinal stenosis, lumbar region without neurogenic claudication; R26.9 Unspecified abnormalities of gait and mobility; G57.93 Unspecified mononeuropathy of bilateral lower limbs
CPT/HCPCS: 99214

== ENCOUNTER → 2024-09-18 09:28 | Outpatient (BNVA) | payer OTHER, SELFPAY | PROVIDERS: PCP Family Medicine; Visit Provider Nurse Practitioner Family | DX: M79.671 Pain in right foot (principal); M79.672 Pain in left foot; M48.061 Spinal stenosis, lumbar region without neurogenic claudication; R29.898 Other symptoms and signs involving the musculoskeletal system; R26.9 Unspecified abnormalities of gait and mobility; G57.93 Unspecified mononeuropathy of bilateral lower limbs | CPT/HCPCS: 99212 ==

== ENCOUNTER → 2024-10-09 | Outpatient (BNV) | payer OTHER, SELFPAY | PROVIDERS: PCP Family Medicine; Visit Provider Internal Medicine Nephrology | DX: N18.6 End stage renal disease (principal) | CPT/HCPCS: 90961 ==

== ENCOUNTER 2024-10-31 09:36 | Outpatient (REF) | payer OTHER, SELFPAY ==
--- OUTSIDE RECORDS SUMMARY | 2024-10-31 09:52 | XMS_ITS ---
Author Name Amparo, Clinic Address [address] [place] [address] Phone [phone] Organization [facility] e, NA DOCUMENT DISCLAIMER Multiple document versions may exist, please be sure you review the latest version. The information in the [facility] Emergency Department Continuity of Care Document represents a summary [...] Instructions Dosage Route Start Date End Date Status Heparin Sodium (Porcine) 1,000 Units/mL Catheter Lock Arterial Every Treatment 2000 units Arterial Red Port October 25, 2024 October 24, 2025 Active Heparin Sodium (Porcine) 1,000 Units/mL Catheter Lock Venous Every Treatment 2000 units Venous Blue Port October 25, 2024 October 24, 2025 Active Heparin Sodium (Porcine) 1,000 Units/mL Systemic Infusion (Pump), Every Treatment, Total treatment minutes 240, Turn heparin pump off 30 minutes prior to end of treatment 500 units/hour Intravenous - push October 30, 2024 October 29, 2025 Active Heparin Sodium (Porcine) 1,000 Units/mL Systemic Bolus, Every Treatment, Total treatment minutes 240 5000 units Intravenous - push October 25, 2024 October 24, 2025 Active Midodrine HCl (Proamatine) PRN hypotension 5 mg Oral October 23, 2024 October 22, 2025 Active Midodrine HCl (Proamatine) PRN hypotension 5 mg Oral October 23, 2024 October 22, 2025 Active Vitamin D (Calcitriol) Oral During Dialysis, Every Treatment 0.5 mcg Oral October 23, 2024 October 22, 2025 Active Heparin Sodium (Porcine) 1,000 Units/mL Catheter Lock Arterial Post Dialysis, Every Treatment 2000 units Arterial Red Port September 24, 2024 September 23, 2025 Discontinued Heparin Sodium (Porcine) 1,000 Units/mL Catheter Lock Venous Post Dialysis, Every Treatment 2000 units Venous Blue Port September 24, 2024 September 23, 2025 Discontinued Heparin Sodium (Porcine) 1,000 Units/mL Systemic Bolus, Every Treatment, Total treatment minutes 240 5000 units Intravenous - push September 26, 2024 September 25, 2025 Discontinued Midodrine HCl (Proamatine) PRN-october repeat x1 5 mg Oral January 23, 2024 January 21, 2025 Discontinued Midodrine HCl (Proamatine) PRN-october repeat x1 5 mg Oral January 23, 2024 January 21, 2025 Discontinued Vitamin D (Calcitriol) Oral During Dialysis, Every Treatment 0.5 mcg Oral September 29, 2024 September 28, 2025 Discontinued Home Medications Medication Instructions Dosage Route Start Date End Date [facility] albuterol sulfate 90 mcg/actuation Inhale using inhaler [...] Sign Value Date / Time Blood Pressure-sitting 103/68 mmHg October 30 12:25 PM Heart Rate 77 beats per minute October 30, 2024 12:25 PM Respiratory Rate 18 breaths per minute October 30 12:25 PM Temperature 97.0 deg. F October 30, 2024 12: 25 PM Weight Vital Sign Value Date / Time Estimated Dry Weight 108.5 kg October 25 11:59 PM Pre-Dialysis 110.80 kg October 30, 2024 12: 25 PM Post-Dialysis 108.80 kg October 30, 2024 12: 25 PM Other Other Value Date / Time Height 165 cm September 21, 2023 1 2:00 AM Body Mass Index 39.85 kg/m2 October 08, 2024 0 3:50 PM [facility]CERNS Tuberculosis Testing TST Date Administered TST Date Read TST Result 09/26/2023 09/28/2023 Negative (<5) mm LAB RESULTS Hematology Result Type Result Value Relevant Referen ce Range Interpretation Date Transferrin Sat. (Calc) 17 % 20 - 55 % Low June 01 UIBC/TIBC 165 mcg/dL 155 - 355 mcg/dL - June 01, 2024 TIBC (Calc) 199 mcg/dL 185 - 515 mcg/dL - Decembe r 2023 Ferritin 291 ng/mL 10 - 291 ng/mL - May 122023 UIBC/TIBC 134 mcg/dL 155 - 355 mcg/dL Low June 25, 2024 TIBC (Calc) 213 mcg/dL 185 - 515 mcg/dL - June 25, 2024 Transferrin Sat. (Calc) 37 % 20 - 55 % - June 25, 2024 Ferritin 585 ng/mL 10 - 291 ng/mL High June Ferritin 477 ng/mL 10 - 291 ng/mL High July 132024 Transferrin Sat. (Calc) 21 % 20 - 55 % - August 01 TIBC (Calc) 196 mcg/dL 185 - 515 mcg/dL - Februar y 2024 UIBC/TIBC 155 mcg/dL 155 - 355 mcg/dL - August 01, 2024 Hemoglobin x 3 32.4 % 36.0 - 48.0 % Low Februar y 2024 Hemoglobin x 3 31.8 % 36.0 - 48.0 % Low August Hemoglobin x 3 30.6 % 36.0 - 48.0 % Low August 092024 Ferritin 752 ng/mL 10 - 291 ng/mL High August 27, 2024 Transferrin Sat. (Calc) 34 % 20 - 55 % - August 27, 2024 Hemoglobin x 3 33.3 % 36.0 - 48.0 % Low August 092024 Iron 74 mcg/dL 30 - 160 mcg/dL - August 27, 2024 TIBC (Calc) 218 mcg/dL 185 - 515 mcg/dL - August 092024 UIBC/TIBC 144 mcg/dL 155 - 355 mcg/dL Low August Hemoglobin x 3 36.3 % 36.0 - 48.0 % - August 102024 Hemoglobin x 3 36.3 % 36.0 - 48.0 % - September Hemoglobin x 3 35.4 % 36.0 - 48.0 % Low September MCH 31.1 pg 27.0 - 31.0 pg High September 24, 2024 Ferritin 517 ng/mL 10 - 291 ng/mL High September 24, 2024 WBC (No Diff) 6.10 1000/mcL 4.80 - 10.80 1000/mcL - September 24, 2024 TIBC (Calc) 200 mcg/dL 185 - 515 mcg/dL - September 092024 Transferrin Sat. (Calc) 32 % 20 - 55 % - September 24, 2024 Iron 64 mcg/dL 30 - 160 mcg/dL - September 24, 2024 UIBC/TIBC 136 mcg/dL 155 - 355 mcg/dL Low September Hemoglobin x 3 37.2 % 36.0 - 48.0 % - September 092024 RDW 13.6 % 11.5 - 14.5 % - September 24 025 MCHC 33.1 g/dL 30.0 - 36.0 g/dL - September Retic HGB (CHr) 30.9 pg 25.4 - 31.8 pg - September 24, 2024 Hemoglobin x 3 35.4 % 36.0 - 48.0 % Low September 102024 HGB 11.8 g/dL 12.0 - 16.0 g/dL Low September HGB 12.1 g/dL 12.0 - 16.0 g/dL - September Hemoglobin x 3 36.3 % 36.0 - 48.0 % - September 112024 HGB 11.3 g/dL 12.0 - 16.0 g/dL Low October 15, 2024 Hemoglobin x 3 33.9 % 36.0 - 48.0 % Low October 15, 2024 Hemoglobin x 3 31.5 % 36.0 - 48.0 % Low October 23, 2024 HGB 10.5 g/dL 12.0 - 16.0 g/dL Low October 23, 2024 Metabolic/Renal Result Type Result Value Relevant Referen ce Range Interpretation Date Hemoglobin A1c 7.5 % 4.8 - 5.9 % High June 112024 Potassium 4.9 mEq/L 3.5 - 5.1 mEq/L - August 11, 2024 URR, Calc 68 % 65 - 80 % - August 13, 2024 BUN, Post 12 mg/dL 6 - 19 mg/dL - August 13 BUN 38 mg/dL 6 - 19 mg/dL High August 13 Potassium 5.0 mEq/L 3.5 - 5.1 mEq/L - August 18, 2024 BUN 79 mg/dL 6 - 19 mg/dL High August 20 URR, Calc 71 % 65 - 80 % - August 20, 2024 BUN, Post 23 mg/dL 6 - 19 mg/dL High August 20 Potassium 5.2 mEq/L 3.5 - 5.1 mEq/L [...] 6 - 19 mg/dL High September 10 URR, Calc 66 % 65 - 80 % - September 17, 2024 BUN, Post 24 mg/dL 6 - 19 mg/dL High September 17 BUN 71 mg/dL 6 - 19 mg/dL High September 17 BUN 71 mg/dL 6 - 19 mg/dL High September 22 BUN, Post 22 mg/dL 6 - 19 mg/dL High September 22 URR, Calc 69 % 65 - 80 % - September 22, 2024 Hemoglobin A1c 6.6 % 4.8 - 5.9 % High September 24, 2024 Bicarbonate 20 mEq/L 22 - 29 mEq/L Low September 24, 2024 Creatinine, Serum 11.83 mg/dL 0.60 - 1.30 mg/dL High September 24, 2024 Potassium 5.2 mEq/L 3.5 - 5.1 mEq/L High September 24, 2024 Sodium 139 mEq/L 136 - 145 mEq/L - September 24, 2024 BUN, Post 23 mg/dL 6 - 19 mg/dL High October 15, 2024 URR, Calc 72 % 65 - 80 % - October 15, 2024 BUN 82 mg/dL 6 - 19 mg/dL High October 15, 2024 HD Adequacy Result Type Result Value Relevant Referen ce Range Interpretation Date Krt/V 0.00 No Reference Ran ge Provided - May 04, 2024 Krt/V 0.00 No Reference Ran ge Provided - May 14, 2024 Krt/V 0.00 No Reference Ran ge Provided - June 13, 2024 Krt/V 0.00 [...] Ran ge Provided - September 10, 2024 wstdKt/V, residual 0.0 No Reference Range Provided - September 17, 2024 eKt/V ([place]) 1.13 No Reference Range Provided - September 17, 2024 spKt/V (Daugirdas II) 1.29 No Reference Range Provided - September 17, 2024 wstdKt/V without residual 2.2 No Reference Range Provided - September 17, 2024 Krt/V 0.00 No Reference Ran ge Provided - September 17, 2024 wstdKt/V 2.2 No Reference Ran ge Provided - September 17, 2024 spKt/V Gotch 1.33 No Reference Ran ge Provided - September 17, 2024 wstdKt/V without residual 2.4 No Reference Range Provided - September 22, 2024 spKt/V Gotch 1.49 No Reference Ran ge Provided - September 22, 2024 Krt/V 0.00 No Reference Ran ge Provided - September 22, 2024 wstdKt/V, residual 0.0 No Reference Range Provided - September 22, 2024 wstdKt/V 2.4 No Reference Ran ge Provided - September 22, 2024 eKt/V ([place]) 1.25 No Reference Range Provided - September 22, 2024 spKt/V (Daugirdas II) 1.43 No Reference Range Provided - September 22, 2024 Krt/V 0.00 No Reference Ran ge Provided - October 15, 2024 wstdKt/V without residual 2.4 No Reference Range Provided - October 15, 2024 eKt/V ([place]) 1.32 No Reference Range Provided - October 15, 2024 spKt/V (Daugirdas II) 1.50 No Reference Range Provided - October 15, 2024 wstdKt/V, residual 0.0 No Reference Range Provided - October 15, 2024 wstdKt/V 2.4 No Reference Ran ge Provided - October 15, 2024 spKt/V Gotch 1.57 No Reference Ran ge Provided - October 15, 2024 Bone/Mineral Result Type Result Value Relevant Referen ce Range Interpretation Date PTH-Intact, Plasma 2402 pg/mL 16 - 80 pg/mL High May PTH-Intact, Plasma 2209 pg/mL 16 - 80 pg/mL High Jun uary 2024 Vitamin D 25 Hydroxy 21.0 ng/mL 30.0 - 100.0 ng/mL Low June 25, 2024 PTH-Intact, Plasma 2757 pg/mL 16 - 80 pg/mL High Jul ruary 2024 Phosphorus 8.2 mg/dL 2.6 - 4.5 mg/dL High August 08, 2024 PTH-Intact, Plasma 2252 pg/mL 16 - 80 pg/mL High Aug 2024 Calcium, Total 9.0 mg/dL 8.4 - 10.2 mg/dL - Robb h 2024 Ca x P Product 90 0 - 54 High August 27, 2024 Phosphorus 10.0 mg/dL 2.6 - 4.5 mg/dL High August 27, 2024 Corrected Ca x P Product 92 0 - 54 High August 27, 2024 Calcium, Total 8.7 mg/dL 8.4 - 10.2 mg/dL - Apri l 2024 Ca x P Product 90 0 - 54 High September 24, 2024 Alkaline Phosphatase 168 U/L 35 - 104 U/L High Ap ril 2024 Corrected Ca x P Product 92 0 - 54 High September 24, 2024 Phosphorus 10.3 mg/dL 2.6 - 4.5 mg/dL High September 24, 2024 PTH-Intact, Plasma 2445 pg/mL 16 - 80 pg/mL High Apr il 2024 Liver/Nutrition Result Type Result Value Relevant Reference Range Interpre tation Date eNPCR 0.65 No Reference Range Provided - August 13, 2024 eNPCR 1.26 No Reference Range Provided - August 20, 2024 SGPT (ALT) 8 U/L 7 - 52 U/L - August 27, 2024 Glucose 122 mg/dL 70 - 100 mg/dL High August 27, 2024 Albumin (BCG) 3.8 g/dL 3.5 - 5.2 g/dL - August 092024 eNPCR 1.38 No Reference Range Provided - September 10, 2024 eNPCR 1.06 No Reference Range Provided - September 17, 2024 eNPCR 0.98 No Reference Range Provided - September 22, 2024 SGPT (ALT) 8 U/L 7 - 52 U/L - September 24, 2024 Glucose 106 mg/dL 70 - 100 mg/dL High September 24, 2024 Albumin (BCG) 3.7 g/dL 3.5 - 5.2 g/dL - September 092024 eNPCR 1.31 No Reference Range Provided - October 15, 2024 Immunochemistry Result Type Result Value Relevant Reference Range Interpre tation Date HCV s/co ratio 0.06 0.00 - 0.79 - December 26, 2023 HCV s/co ratio 0.04 0.00 - 0.79 - June 112024 Trace Elements Result Type Result Value Relevant Reference Range Interpre tation Aluminum < 5 mcg/L 0 - 10 mcg/L - June 25, 2024 Infectious Diseases Result Type Result Value Relevant Referen ce Range Interpretation Date Hep B Surface Ab (anti-HBs) 14 mIU/mL No Reference Range Provided - June 25, 2024 HCV Ab (anti-HCV) Nonreactive No Reference R giles Provided - June 25, 2024 Hep B Surface Ag (HBsAg) Negative No Reference Range Provided - September 24, 2024 DIALYSIS PRESCRIPTION Conventional Hemodialysis Data Element Value Order Date/Time October 25, 2024 Frequency 3X Week Treatment Days TueThuSat Dialyzer 160NRe Optiflux Treatment Time (Total Minutes) 240 min Blood Flow Rate (mL/min) 450 mL/min Dialysate Flow Rate Manual 800 Estimated Dry Weight 108.5 kg Dialysate Concentrate 2.0 K, 2.50 Ca, 1. 0 Mg, 100 Dextrose ([id number]) Sodium (mEq/L) 138 mEq/L Bicarb Machine Setting (mEq/L) 36 mEq/L Dialysis Access Hemodialysis-CV Cath eter-Tunneled, Chest, Right Subclavian IMMUNIZATIONS Vaccine Date Dose Route Status Flu Vaccine - Flucelvax Trivalent March 28, 2024 0.5 mL Intramuscular Completed PREVNAR March 21, 2024 0.5 mL Intramuscular Compl eted HEPLISAV-B, Series 4 of 4 February 29, 2024 In tramuscular Completed HEPLISAV-B, Series 3 of December 26, 2023 20.0 mcg Intramu scular Completed HEPLISAV-B, Series 2 of 4 November 30, 2023 20.0 mcg Intramu scular Completed HEPLISAV-B, Series 1 of October 24, 2023 20.0 mcg Intramus cular Completed TRANSPLANT WAITLIST STATUS No Information on Transplant Waitlist Status ADVANCE DIRECTIVES Directive Description Ordered By Effective Date Resuscitation status Full Code Jerry Montenegro October 23, 2024 DIALYSIS TREATMENTS Conventional Hemodialysis Date Pre-Treatment Vitals Post-Treatment Josefina ls Duration (hr) BFR (mL/min) Dialysate Dialyzer Dialysis Access Meds Admin October 25, 2024 Weight 113.30 kg Weight 109.30 kg 03:24:00 440 2.0 K, 2.50 Ca, 1.0 Mg, 100 Dextrose ([id number]) 160nre Optifl ux Blood Pressure-sitting 111/65 mmHg Blood Pressure-sit ting 102/58 mmHg Heart Rate 90 beats per minute Heart Rate 78 beats per minute Respiratory Rate 17 breaths per minute Respiratory Rate 16 breaths per minute Temperature 96.9 deg. F Temperature 97.7 deg. F October 28, 2024 Weight 112.40 kg Weight 108.60 kg 04:03:00 430 2.0 K, 2.50 Ca, 1.0 Mg, 100 Dextrose ([id number]) 160nre Optiflux Hemodialysis-CV Catheter-Tunneled, Chest, Right Subclavian Heparin Sodium (Porcine) 1,000 Units/mL Catheter Lock Arterial; 2000units,Arterial Red Port Heparin Sodium (Porcine) 1,000 Units/mL Catheter Lock Venous; 2000units,Venous Blue Port Heparin Sodium (Porcine) 1,000 Units/mL Systemic; 5000units,Intravenous - push Midodrine HCl (Proamatine); 5mg,Oral Midodrine HCl (Proamatine); 5mg,Oral Vitamin D (Calcitriol) Oral; 0.5mcg,Oral Blood Pressure-sitting 125/63 mmHg Blood Pressure-sit ting 110/61 mmHg Heart Rate 86 beats per minute Heart Rate 95 beats per minute Respiratory Rate 18 breaths per minute Respiratory Rate 18 breaths per minute Temperature 97.0 deg. F Temperature 97.0 deg. F October 30, 2024 Weight 110.80 kg Weight 108.80 kg 04:02:00 460 2.0 K, 2.50 Ca, 1.0 Mg, 100 Dextrose ([id number]) 160nre Optiflux Hemodialysis-CV Catheter-Tunneled, Chest, Right Subclavian Heparin Sodium (Porcine) 1,000 Units/mL Catheter Lock Arterial; 2000units,Arterial Red Port Heparin Sodium (Porcine) 1,000 Units/mL Catheter Lock Venous; 2000units,Venous Blue Port Heparin Sodium (Porcine) 1,000 Units/mL Systemic; 5000units,Intravenous - push Heparin Sodium (Porcine) 1,000 Units/mL Systemic; 500units,Intravenous - push Midodrine HCl (Proamatine); 5mg,Oral Midodrine HCl (Proamatine); 5mg,Oral Vitamin D (Calcitriol) Oral; 0.5mcg,Oral Blood Pressure-sitting 121/66 mmHg Blood Pressure-sit ting 103/68 mmHg Heart Rate 85 beats per minute Heart Rate 77 beats per minute Respiratory Rate 18 breaths per minute Respiratory Rate 18 breaths per minute Temperature 97.0 deg. F Temperature 97.0 deg. F
[2024-10-31 10:00] LABS: MANUAL DIFF FLAG NO
[2024-10-31 11:12] LABS: Basophils Absolute Auto 0.1 X10*3/uL (0.0-0.2); Eosinophils Absolute Auto 0.3 X10*3/uL (0.0-0.4); Eosinophils Percent Auto 5.4 % (0-4); Hematocrit 33.8 % (37.0-47.0); Hemoglobin 11.1 g/dl (12.0-16.0); Imm Gran Abs Auto 0.01 X10*3/uL (0.00-0.03); Imm Gran Pct Auto 0.2 % (0.0-0.4); Lymphocytes Absolute Auto 1.9 X10*3/uL (1.2-4.9); Lymphocytes Percent Auto 37.5 % (20-40); Mean Corpuscular HGB Conc 32.8 g/dl (31.0-35.0); Mean Corpuscular Hemoglobin 29.8 pg (27.0-33.0); Mean Corpuscular Volume 90.9 fL (80.0-98.0); Mean Platelet Volume 10.7 fL (9.4-12.3); Monocytes Absolute Auto 0.4 X10*3/uL (0.1-1.2); Monocytes Percent Auto 8.8 % (2-11); Neutrophils Absolute Auto 2.4 x10*3/uL (2.0-8.3); Neutrophils Percent Auto 47.1 % (45-73); Platelet Count 214 X10*3/uL (160-400); Red Blood Count 3.72 X10*6/uL (4.20-5.50); Red Cell Distribution Width 13.1 % (11.0-16.0)
[2024-10-31 12:21] LABS: Cholesterol 144 mg/dL (<200); HDL Cholesterol 29 mg/dL (>40); LDL Cholesterol Calculated 88 mg/dL (<100); Triglycerides 138 mg/dL (<150)
[2024-10-31 12:54] LABS: TSH reflex Free T4 1.37 uIU/mL (0.32-4.0); Vitamin D 25-OH Total 20.2 ng/mL (>30)
[2024-10-31 12:57] LABS: Reflex LDLD? No
[2024-10-31 13:04] LABS: Alanine Aminotransferase 22 U/L (0-31); Albumin Level 3.8 g/dL (3.5-5.0); Alkaline Phosphatase 204 U/L (39-117); Anion Gap 19 (12-20); Aspartate Amino Transferase 19 U/L (5-31); Bilirubin Total 0.2 mg/dL (0.0-1.0); Blood Urea Nitrogen 50 mg/dL (9-16); Calcium 9.3 mg/dL (8.4-10.2); Carbon Dioxide 26 mmol/L (22-29); Chloride 103 mmol/L (96-108); Cholesterol 144 mg/dL (<200); Estimated Glomerular Filt Rate 6; Glucose Fasting 66 mg/dL (60-99); HDL Cholesterol 27 mg/dL (>40); LDL Cholesterol Calculated 89 mg/dL (<100); Magnesium 2.3 mg/dL (1.6-2.6); Phosphorus 7.7 mg/dL (2.7-4.5); Potassium 4.9 mmol/L (3.3-5.1); Sodium 143 mmol/L (135-145); Total Protein 6.7 g/dL (6.5-8.0); Triglycerides 140 mg/dL (<150)
== END 2024-10-31 09:37 | disposition home or self-care (01) ==
LOC: HO.LAB 09:36
PROVIDERS: PCP Family Medicine; Visit Provider Family Medicine
DX: I25.10 Atherosclerotic heart disease of native coronary artery without angina pectoris (principal); Z00.00 Encounter for general adult medical examination without abnormal findings; E55.9 Vitamin D deficiency, unspecified; N18.6 End stage renal disease
CPT/HCPCS: 36415; 80053; 80061; 82306; 83735; 84100; 84443; 85025

== ENCOUNTER → 2024-11-06 16:08 | Outpatient (BNVA) | payer OTHER, SELFPAY | PROVIDERS: PCP Family Medicine; Visit Provider Family Medicine ==

== ENCOUNTER 2024-11-07 13:32 | Outpatient (AMB) | payer OTHER, SELFPAY ==
--- NOTE | 2024-11-07 13:35 | MHC.PC.OV ---
Vital Signs 11/07/24 13:46 Height 5 ft 6 in Weight 238 lb BMI 38.4 BP 130/70 Blood Pressure Location Lt brachial Position Sitting Respiration 16 Pulse 94 Pulse Source Pulse Oximeter Temp 97.9 F Temp Source Oral Pulse Oximetry (%) 98 Oxygen Delivery Method Room Air Intake Visit Reasons: CPE with f/u labs and health main- A1C Intake Note: patient is scheduled for follow-up for labs health maint A1c patient was to know what she can talk about during visits so she dosen't get a unexpected bill. 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 Autism Coronary artery disease Uncontrolled diabetes mellitus with hyperglycemia, with long-term current use of insulin Adrenal incidentaloma ESRD needing dialysis NSTEMI (non-ST elevated myocardial infarction) MDD (major depressive disorder) Hyperlipidemia due to type 1 diabetes mellitus Diabetic retinopathy Cauda equina syndrome Anasarca associated with disorder of kidney DM gastroparesis Abnormal abdominal MRI Hearing loss in right ear Hearing loss in left ear RSV infection Hypertensive urgency Diabetes mellitus type 1, uncontrolled Gastroparesis Moderate persistent asthma, uncomplicated Chronic GERD Cyclic vomiting syndrome Surgical History AVF (arteriovenous fistula) Previous back surgery Family History Father Diabetes Paternal Grandfather Diabetes Mother No known problems Social History Housing: Apartment Alcohol intake: unknown Patient Tobacco Use Status: Former Tobacco user e-Cigarette/Vaping Use: Never Used Second Hand Smoke Exposure: No Substance Use Type: Marijuana Advance Directives Date on File: 08/31/22 service: No Current occupational status: disabled Current occupational exposures/hazards: No Cognitive needs: No Hearing needs: No Vision needs: No Questionnaire Thrive Questionnaire Date Thrive assessed: 11/07/24 I am a: Patient What is your living situation today?: I have a steady place to live Within the past 12 months, did the food you bought not last and you didn't have the money to get more?: Never true Within the past 12 months, did you worry whether your food would run out before you got money to buy more?: Never true Do you have trouble paying for medicines?: No Do you have trouble getting transportation to medical appointments?: No Do you have trouble paying your heating and electricity bill?: No Do you have trouble taking care of your child, family member or friend?: No Do you have trouble with day-to-day activities such as bathing, preparing meals, shopping, managing finances, etc.?: No Are you currently unemployed and looking for a job?: No Are you interested in more education?: No Please select the resources that you would like help with: None Currently or been in a relationship where the following occur: No concerns reported THRIVE Score: 0 TERRY-7 AMB Questionnaire TERRY-7 Date TERRY - 7 assessed: 07/25/23 Source: Developed by Drs. Channing Funes, Tenisha Foley, Mohan Fagan and colleagues, with an educational francis from [employer]. Physical exam (Primary Care) Vital Signs: Last Vital Signs Temp 97.9 F 11/07/24 13:46 Pulse 94 11/07/24 13:46 Resp 16 11/07/24 13:46 BP 130/70 11/07/24 13:46 Pulse Ox 98 11/07/24 13:46 Oxygen Delivery Method Room Air 11/07/24 13:46 BMI result Body Mass Index 38.4 Tobacco/Smoking Status: Tobacco use Status Tobacco use date assessed 11/07/24 11/07/24 13:52 Patient Tobacco Use Status Former Tobacco user 11/07/24 13:36 e-Cigarette/Vaping Use Never Used 11/07/24 13:36 Thrive Assessment: Date of Thrive Assessment Date Thrive assessed 11/07/24 11/07/24 13:52 Currently or been in a relationship where the following occur: No concerns reported Coding Level of Care Code Est Pt Level 5 (88837) Diagnoses 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 on chronic dialysis E10.22; N18.6; Z99.2 Chronic kidney disease stage: on chronic dialysis Hypertension complicating diabetes E11.59; I15.2 NSTEMI (non-ST elevated myocardial infarction) I21.4 Hypoparathyroidism E20.9 Diabetic retinopathy E11.319 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 E11.22; N18.4 Anemia D64.9 Lower extremity weakness R29.898 Diabetic polyneuropathy associated with type 1 diabetes mellitus E10.42 Diabetes mellitus complication detail: diabetic polyneuropathy Unsteady gait R26.81 Screening for breast cancer Z12.39 Screening for cervical cancer Z12.4 Osteopenia M85.80 Wrist pain M25.539 Assessment & Plan Assessment & Plan (1) 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 Patient?would?like?to?see?a?new?mold capper helper?at[facility] Referral?made (2) Hypertension complicating diabetes: Comment: Managed on Ar[employer]. beta-ángel and calcium channel ángel Code(s): E11.59 - Type 2 diabetes mellitus with other circulatory complications; I15.2 - Hypertension secondary to endocrine disorders Category: Medical Plan: Blood?pressure?is?fairly?well?controlled.??Goal?is?less?than?130/80 She?did?not?tolerate?blood?pressure?medications?and?is?no?longer?on?them Watch?salt/sodium?in?diet Will?continue?to?monitor?blood?pressure (3) NSTEMI (non-ST elevated myocardial infarction): Code(s): I21.4 - Non-ST elevation (NSTEMI) myocardial infarction Category: Medical Plan: Stable?and?saw?Cardiology?recently They?have?put?her?on?Zetia (4) Hypoparathyroidism: Code(s): E20.9 - Hypoparathyroidism, unspecified Category: Medical Plan: Likely?secondary?to?end-stage?renal?disease She?is?followed?by?Nephrology I?have?referred?her?to?endocrinology (5) Diabetic retinopathy: Code(s): E11.319 - Type 2 diabetes mellitus with unspecified diabetic retinopathy without macular edema Category: Medical Plan: Continue?tight?control?of?blood?sugars Follow-up?with?ophthalmology.??Patient?says?she?is?making?an?appointment?soon (6) 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: Comment: [facility]; Dialysis [facility] Code(s): E11.22 - Type 2 diabetes mellitus with diabetic chronic kidney disease; N18.4 - Chronic kidney disease, stage 4 (severe) Category: Medical Plan: As?above Neuropathy?is?likely?affecting?strength?in?her?feet?and?ankles Continue?physical?therapy Follow-up?with?Neurology (7) Anemia: Code(s): D64.9 - Anemia, unspecified Category: Medical Plan: Mild?and?improving Will?continue?to?monitor (8) Lower extremity weakness: Code(s): R29.898 - Other symptoms and signs involving the musculoskeletal system Category: Medical Plan: Likely?secondary?to?neuropathy And?spinal?stenosis Continue?exercises?from?physical?therapy (9) Diabetic neuropathy associated with type 1 diabetes mellitus: Comment: Affecting multiple extremities as well as GI system as evidenced by gastroparesis Code(s): E10.40 - Type 1 diabetes mellitus with diabetic neuropathy, unspecified Category: Medical Qualifiers: Diabetes mellitus complication detail: diabetic polyneuropathy Qualified Code(s): E10.42 - Type 1 diabetes mellitus with diabetic polyneuropathy Plan: As?above (10) Unsteady gait: Code(s): R26.81 - Unsteadiness on feet Category: Medical Plan: Continue?using?wheelchair (11) Screening for breast cancer: Code(s): Z12.39 - Encounter for other screening for malignant neoplasm of breast Category: Medical Plan: Mammogram?ordered (12) Screening for cervical cancer: Code(s): Z12.4 - Encounter for screening for malignant neoplasm of cervix Category: Medical Plan: Referred?to?mixer pigment (13) Osteopenia: Code(s): M85.80 - Other specified disorders of bone density and structure, unspecified site Category: Medical Plan: Recently?started?vitamin-D Encouraged?weight-bearing?exercise?as?tolerated Follow-up?with?nephrology?and?Endocrinology?regarding?hypoparathyroidism (14) Wrist pain: Code(s): M25.539 - Pain in unspecified wrist Category: Medical Plan: Likely?tendinitis She?has?benefited?from?occupational?therapy/physical?therapy?in?the?past. Ordered?occupational?therapy Orders: Orders OT Evaluation and Treatment 11/07/24 M25.539 - Pain in unspecified wrist MM tomosynthesis screening BI 11/07/24 Z12.31 - Encounter for screening mammogram for malignant neoplasm of breast Referrals Endocrinology Referral E10.22 - Type 1 diabetes mellitus with diabetic chronic kidney disease, E20.9 - Hypoparathyroidism, unspecified, N18.6 - End stage renal disease, Z99.2 - Dependence on renal dialysis [employer] [address] Referral Z12.4 - Encounter for screening for malignant neoplasm of cervix
[2024-11-07 13:46] VITALS: BP 130/70; PULSE 94; RESP 16; TEMP 36.6; O2SAT 98; BMI 38.4
--- OUTSIDE RECORDS SUMMARY | 2024-11-07 13:46 | XMS_ITS ---
Author Name Amparo, Clinic Address [address] [place] [address] Phone [phone] Organization [facility] e, NA DOCUMENT DISCLAIMER Multiple document versions may exist, please be sure you review the latest version. The information in the [facility] Continuity of Care Document represents [...] Instructions Dosage Route Start Date End Date [facility] albuterol sulfate 90 mcg/actuation Inhale [...] Sign Value Date / Time Blood Pressure-sitting 101/55 mmHg November 06 11:45 AM Heart Rate 63 beats per minute November 06, 2024 11:45 AM Respiratory Rate 18 breaths per minute November 06 11:45 AM Temperature 97.0 deg. F November 06, 2024 11: 45 AM Weight Vital Sign Value Date / Time Estimated Dry Weight 108.5 kg October 25 11:59 PM Pre-Dialysis 111.30 kg November 06, 2024 11: 45 AM Post-Dialysis 108.00 kg November 06, 2024 11: 45 AM Other Other Value Date / Time Height [...] mcg/dL 185 - 515 mcg/dL - Februar 2024 UIBC/TIBC 155 mcg/dL 155 - 355 mcg/dL - August 01, 2024 Hemoglobin x 3 31.8 % 36.0 [...] 11.5 - 14.5 % - September 24 MCHC 33.1 g/dL 30.0 - 36.0 g/dL - September Retic HGB (CHr) 30.9 pg 25.4 - 31.8 pg - September 24, 2024 Hemoglobin x 3 35.4 % 36.0 - 48.0 % Low September 102024 HGB 12.1 g/dL 12.0 - 16.0 [...] - 16.0 g/dL Low October 23, 2024 Ferritin 573 ng/mL 10 - 291 ng/mL High October 30 Iron 56 mcg/dL 30 - 160 mcg/dL - October 30, 025 UIBC/TIBC 149 mcg/dL 155 - 355 mcg/dL Low October 30, 2024 TIBC (Calc) 205 mcg/dL 185 - 515 mcg/dL - October 30, 2024 Transferrin Sat. (Calc) 27 % 20 - 55 % - October 30, 2024 Hemoglobin x 3 32.7 % 36.0 - 48.0 % Low October 30, 2024 HGB 10.9 g/dL 12.0 - 16.0 g/dL Low October 30, 2024 Hemoglobin x 3 33 % 36.0 - 48.0 % Low November 06, 2024 HGB 11.0 g/dL 12.0 - 16.0 g/dL Low November 06, 2024 Metabolic/Renal Result Type Result Value Relevant [...] - 19 mg/dL High October 15, 2024 Creatinine, Serum 11.63 mg/dL 0.60 - 1.30 mg/dL High October 30, 2024 Sodium 136 mEq/L 136 - 145 mEq/L - October 30 Potassium 6.2 mEq/L 3.5 - 5.1 mEq/L High October 30 Bicarbonate 23 mEq/L 22 - 29 mEq/L - October 30 Potassium 5.0 mEq/L 3.5 - 5.1 mEq/L - November 04 HD Adequacy Result Type Result Value Relevant [...] ge Provided - October 15, 2024 spKt/V Got 1.57 No Reference Ran ge Provided - October 15, 2024 Bone/Mineral Result Type Result Value Relevant Referen ce Range Interpretation Date PTH-Intact, Plasma 2402 pg/mL 16 - 80 pg/mL High Dec ember 2023 PTH-Intact, Plasma 2209 pg/mL 16 - 80 pg/mL High Manohar ua 2024 Vitamin D 25 Hydroxy 21.0 ng/mL 30.0 - 100.0 ng/mL Low June 25, 2024 PTH-Intact, Plasma 2757 pg/mL 16 - 80 pg/mL High Feb ruary 2024 PTH-Intact, Plasma 2252 pg/mL 16 - 80 pg/mL High Mar ch 2024 Calcium, Total 9.0 mg/dL 8.4 - [...] - 80 pg/mL High Apr il 2024 Corrected Ca x P Product 89 0 - 54 High October 30, 2024 Calcium, Total 9.1 mg/dL 8.4 - 10.2 mg/dL - October 30, 2024 Phosphorus 9.8 mg/dL 2.6 - 4.5 mg/dL High October 30, 025 Ca x P Product 89 0 - 54 High October 30 25 PTH-Intact, Plasma 2521 pg/mL 16 - 80 pg/mL High October 30, 2024 Liver/Nutrition Result Type Result Value Relevant [...] Reference Range Provided - October 15, 2024 Glucose 147 mg/dL 70 - 100 mg/dL High October 30 Albumin (BCG) 4.0 g/dL 3.5 - 5.2 g/dL - October 30, 2024 SGPT (ALT) 10 U/L 7 - 52 U/L - October 30, 2024 Immunochemistry Result Type Result Value Relevant [...] (HBsAg) Negative No Reference Range Provided - November 04, 2024 DIALYSIS PRESCRIPTION Conventional Hemodialysis Data Element Value Order Date/Time October 25, 2024 Frequency 3X Week Treatment Days TueThuSat Dialyzer 160NRe Optiflux Treatment Time (Total Minutes) 240 min Blood Flow Rate (mL/min) 450 mL/min Dialysate Flow Rate Manual 800 Estimated Dry Weight 108.5 kg Dialysate Concentrate 2.0 K, 2.50 Ca, 1. 0 Mg, 100 Dextrose ([id number]) Sodium (mEq/L) 138 mEq/L Bicarb Machine Setting [...] (mL/min) Dialysate Dialyzer Dialysis Access Meds Admin November 01, 2024 Weight 111.20 kg Weight 108.50 kg 04:03:00 450 2.0 K, 2.50 Ca, 1.0 Mg, 100 Dextrose ([id number]) 160nre Optifl ux Blood Pressure-sitting 108/66 mmHg Blood Pressure-sit ting 123/72 mmHg Heart Rate 72 beats per minute Heart Rate 91 beats per minute Respiratory Rate 18 breaths per minute Respiratory Rate 18 breaths per minute Temperature 97.0 deg. F Temperature 97.0 deg. F November 04, 2024 Weight 111.80 kg Weight 108.00 kg 04:00:00 400 2.0 K, 2.50 Ca, 1.0 Mg, 100 Dextrose ([id number]) 160nre Optiflux Hemodialysis-CV Catheter-Tunneled, Chest, Right Subclavian Heparin Sodium (Porcine) 1,000 Units/mL Catheter Lock Arterial; 2000units,Arterial [place] Heparin Sodium (Porcine) 1,000 Units/mL Catheter Lock Venous; 2000units,Venous [place] Heparin Sodium (Porcine) 1,000 Units/mL Systemic; 500units,Intravenous - push Heparin Sodium (Porcine) 1,000 Units/mL Systemic; 5000units,Intravenous - push Vitamin D (Calcitriol) Oral; 0.5mcg,Oral Blood Pressure-sitting 128/71 mmHg Blood Pressure-sit ting 144/93 mmHg Heart Rate 81 beats per minute Heart Rate 70 beats per minute Respiratory Rate 18 breaths per minute Respiratory Rate 18 breaths per minute Temperature 97.0 deg. F Temperature 97.0 deg. F November 06, 2024 Weight 111.30 kg Weight 108.00 kg 03:45:00 400 2.0 K, 2.50 Ca, 1.0 Mg, 100 Dextrose ([id number]) 160nre Optiflux Hemodialysis-CV Catheter-Tunneled, Chest, Right Subclavian Heparin Sodium (Porcine) 1,000 Units/mL Catheter Lock Arterial; 2000units,Arterial [place] Heparin Sodium (Porcine) 1,000 Units/mL Catheter Lock Venous; 2000units,Venous [place] Heparin Sodium (Porcine) 1,000 Units/mL Systemic; 5000units,Intravenous - push Heparin Sodium (Porcine) 1,000 Units/mL Systemic; 500units,Intravenous - push Vitamin D (Calcitriol) Oral; 0.5mcg,Oral Blood Pressure-sitting 115/68 mmHg Blood Pressure-sit ting 101/55 mmHg Heart Rate 77 beats per minute Heart Rate 63 beats per minute Respiratory Rate 18 breaths per minute Respiratory Rate 18 breaths per minute Temperature 97.0 deg. F Temperature 97.0 deg. F
== END 2024-11-07 14:39 | disposition home or self-care (01) ==
LOC: HO.HMCFM 13:33
PROVIDERS: PCP Family Medicine; Visit Provider Family Medicine
DX: E10.22 Type 1 diabetes mellitus with diabetic chronic kidney disease (principal); N18.6 End stage renal disease; Z99.2 Dependence on renal dialysis

== ENCOUNTER → 2024-11-07 13:32 | Outpatient (BNVA) | payer OTHER, SELFPAY | PROVIDERS: PCP Family Medicine; Visit Provider Family Medicine | DX: E10.22 Type 1 diabetes mellitus with diabetic chronic kidney disease (principal); E10.42 Type 1 diabetes mellitus with diabetic polyneuropathy; E10.59 Type 1 diabetes mellitus with other circulatory complications; E10.319 Type 1 diabetes mellitus with unspecified diabetic retinopathy without macular edema; N18.6 End stage renal disease; I15.2 Hypertension secondary to endocrine disorders; I21.4 Non-ST elevation (NSTEMI) myocardial infarction; E20.9 Hypoparathyroidism, unspecified; N18.4 Chronic kidney disease, stage 4 (severe); D64.9 Anemia, unspecified; R29.898 Other symptoms and signs involving the musculoskeletal system; R26.81 Unsteadiness on feet; Z99.2 Dependence on renal dialysis | CPT/HCPCS: 83036; 99212 ==

== ENCOUNTER 2024-12-05 13:38 | Outpatient (RCR) | payer OTHER, SELFPAY ==
--- NOTE | 2024-11-28 15:53 | MHC.OT.EP ---
[address] [phone] Occupational Therapy Plan of Care Patient Name: Phoenix Leach Date of Evaluation: 11/28/24 Diagnosis: B wrist pain Pain Location: r thumb Pain Score: 10 Pain Scale Used: Numeric (0 - 10) Aggravating Factors: activity Alleviating Factors: rest Assessment: Pt is a 44 yr old R hand dominant female who has been experiencing cysts throughout her B wrists and hands for years. She reports she attended skilled OT therapy a few yrs back to address her L wrist pain and an orthoses was fabricated for her which was helpful. She reports pain in her L thumb and intermittent paresthesia in B hands. Pt presents today w/ (-) Tinels (awaiting neuro for cervical neck assessment), pain only in her R hand/ thumb, pain w/ palpation of her CMC J and instability in her R thumb at MP J - ((+) UCL stress test), as well as a weak hand simonizer in her R hand. Pt would benefit from skilled OT therapy to address these deficits and increase the functional use of her R hand /UE to perform ADLs Frequency and Duration: The patient will be seen 1 x 4 weeks Short Term Goals: SEE BELOW Longterm Goals: Pt will be complaint w/ jt. protection techniques Pt will increase R hand simonizer to 45 lbs Pt will report R thumb pain 3/10 w/ activity Treatment Plan: Therapeutic Exercise Therapeutic Activity Home Exercise Program Splinting Patient Education Desensitization/Sensory Re-ed Edema Control ADL Training Ultrasound Iontophoresis Paraffin Fluidotherapy MHP Cold Packs Joint Mobilization Soft Tissue Mobilization Kinesiotaping Electronically Signed By: Dilcia Basurto OTR/L Please Sign and return to therapist. Thank you once again for your referral.
== END 2025-02-04 09:13 | disposition home or self-care (01) ==
LOC: HO.OT 13:38
PROVIDERS: PCP Family Medicine; Visit Provider Family Medicine
DX: M25.531 Pain in right wrist (principal); M25.532 Pain in left wrist
CPT/HCPCS: 97110; 97140; 97166; 97535

== ENCOUNTER → 2024-12-09 23:59 | Outpatient (BNV) | payer OTHER, SELFPAY | PROVIDERS: PCP Family Medicine; Visit Provider Internal Medicine Nephrology | DX: N18.6 End stage renal disease (principal) | CPT/HCPCS: 90961 ==

== ENCOUNTER 2024-12-23 14:42 | Outpatient (AMB) | payer OTHER, SELFPAY ==
--- OUTSIDE RECORDS SUMMARY | 2024-12-19 20:00 | XMS_ITS ---
Author Name Felice Montenegroji Address [address] [place] [address] Phone [phone] Organization [facility] e, NA DOCUMENT DISCLAIMER Multiple document versions may exist, please be sure you review the latest version. The information in the [facility] Emergency [facility] Progress Note Document represents a providers documented clinical note containing certain health and medical information. It may not contain the complete medical history for the patient and should be independently verified. The represented time in the document is Eastern Time Patient:?Phoenix?Haylee,?1980,?44y,?F Dialysis?Location:?[facility] Attending?Vocational Training Instructor:?Rebecca Service?Date:?12/20/2024 Service?Provider:?Jerry?Lan,? I?met?face?to?face?with?the?patient?today. INITIAL?PATIENT?CONTACT This?face?to?face?visit?occurred?within?2?business?days ?of?the?patient?s?discharge HOSPITALIZATION?SUMMARY Setting?patient?transitioned?to:?Home. Admission?Date:?12/08/2024 Discharge?Date:?12/17/2024 Discharge?diagnosis:?I50.20?Unspecified?systolic?(congestive)?heart failure I25.5?Ischemic?cardiomyopathy R07.9?Chest?pain,?unspecified E11.10?Type?2?diabetes?mellitus?with?ketoacidosis?without?coma Discharge?information?reviewed: Followed?up?on?or?reviewed?need?for?pending?tests?/ treatments?as?noted MEDICATIONS Discharge?med?list?reviewed?and?reconciled?-?no?changes. Home?Medications:? ??omeprazole?40?mg,?by?mouth,?Take?1?capsule?once a?day ??ezetimibe?10?mg,?by?mouth,?Take?1?tablet?three times?a?day ??Tresiba?U-100?Insulin?(insulin?degludec)?100?unit/mL,&#160 ;subcutaneously,?Inject?20?unit?once?a?day ??duloxetine?30?mg,?by?mouth,?Take?1?capsule?once a?day ??clonazepam?1?mg,?by?mouth,?Take?1?tablet?twice a?day ??bisoprolol?fumarate?5?mg,?by?mouth,?Take?1/2?tablet?once?a?day ??Sucroferric?Oxyhydroxide?(Velphoro)?500?mg,?By?Mouth,&#160 ;Take?4?Tablet?Every?24?hours?With?Meals?Take?1?ta b?with?meals?and?1?tab?with?a?snack ??trazodone?150?mg,?by?mouth,?Take?2?tablet?once a?day?in?PM ??Novolog?Mix?70-30FlexPen?U-100?(insulin?asp?prt-insulin&#1 60;aspart)?100?unit/mL?(70-30),?Inject?as?directed?sliding?scale ??atorvastatin?80?mg,?by?mouth,?Take?1?tablet?once?a?day?in?p.m. ??Singulair?(montelukast)?10?mg,?by?mouth,?Take?1?tablet?once?a?day?in?PM ??Aspirin?Childrens?(aspirin)?81?mg,?by?mouth,?Take 1?tablet?once?a?day ??albuterol?sulfate?90?mcg/actuation,?using?inhaler,?Inhale& #160;2?puff?every?four?to?six?hours?as?needed?. Allergies:? ??PENICILLINS PHYSICAL?EXAM Exam?Performed.?Vital?Signs?Reviewed.?Lungs?-?Clear.?CV&#160 ;-?Blood?pressure?noted.?CV?-?RRR.?EXT?-?No?edema.?EXT?-?No?ulcers. DIALYSIS?PRESCRIPTION Dry?weight?during?admission?reviewed???no?change?to?EDW. CARE?COORDINATION? Post?discharge?follow-up?appointments?reviewed?with?the?patient. EDUCATION Education?relevant?to?the?discharge?diagnosis?provided?to?th e?patient?or?caregiver IMPRESSION?&?PLAN Comments:?Shall?continue?current?management?for?now Signed?By:?Lan,?Jerry???on?12/20/2024?4:31:40?PM END OF DOCUMENT
--- NOTE | 2024-12-23 14:56 | A.OFFPC_ITS ---
Vital Signs 3 12/23/24 15:01 12/23/24 15:37 Height 5 ft 6 in Weight 244 lb 11.41 oz BMI 39.5 BP 120/60 Blood Pressure Location Rt brachial Position Sitting Respiration 16 Pulse 79 84 Pulse Source Pulse Oximeter Pulse Oximeter Temp 99.4 F Temp Source Oral Pulse Oximetry (%) 96 97 Oxygen Delivery Method Room Air Room Air Intake Visit Reasons: [facility]/heart attack/referrals/pain mangagment Intake Note: patient is scheduled for ed discharge Transmission Rebuilder Required: No Allergies Penicillins Allergy (Intermediate, Verified 12/23/24 14:57) compromises mental health Tobacco use date assessed: 11/07/24 Dental Screening Dental Screen Date: 11/07/24 HPI HPI Comments 2 History of Present Illness0 Details 44-year-old female with type 1 diabetes with micro and Macrovascular complications, hypertension, bipolar disease, anxiety disorder with agoraphobia, binge eating disorder hyperlipidemia, moderate persistent asthma chronic back pain, gastroparesis, end-stage renal disease on hemodialysis/diabetic nephropathy, secondary hyperparathyroidism, benign adenoma Left adrenal nodule 1 x 2 cm osteomyelitis of the spine August 2022, cauda equina, L3-L4 space L4-L5 diskectomies, chronic GERD, anemia of chronic disease, diverticulosis of the colon, umbilical hernia Here today for a Transitional Care Management Visit Discharge summary reviewed. Admission Date: 12/08/24 Discharge Date: 12/17/24 Hospital: [facility] Date of interactive contact with Nurse Navigator: as documented in chart Pending diagnostic tests/treatments: none Pending consults: Palliative Care DME: None PT/OT/KENO WRITER/RUNNER: Y Referrals: Palliative Care HF Clinic [facility] Medications reconciled & updated. During todays TCM visit, the d/c summary was reviewed, along with the need for or follow-up on pending diagnostic tests and treatments, as necessary interaction with other health day care home mother who will assume or reassume care of the beneficiary?s system-specific problems was done or is being worked on, education was provided to the beneficiary, family, guardian, and/or caregiver, referrals to establish or re-establish and arrange needed community resources we completed, assistance in scheduling required follow-up with community providers and services & finally updated medication list given to patient/caregiver History of Present Illness - The patient is a 44-year-old female pr esenting for TCM - need for the coordination of palliativ e care services. - Noted as a poor surgical candidate for future interventions - She reports [facility] has been in her ho me; Catherine RN has called. She has not had Palliative Care in there yet. At the time of the visit, a call was missed on Beth's phone from the Pal care team at [facility], message states they will start services KATJA. I will place a formal referral as well. - Experiences significant dyspnea @ HS. Reports needing 02. DC records do not support this. She states she went to [facility] ED to sleep last night; reports o2 admin. I do not have these records. She is not able to walk for 6 minutes. - Psychological stress due to unresolved dyspnea and inadequate restful sleep. - Taking all meds as directed. - Does not plan to fu with Cardiac rehab . -Agreeable to [facility] care. Not ready for spice. - FU with Cards scheduled 01/01/25 Review of Systems - Cardiovascular: Reports shortness of b reath, pericardial effusion. - Respiratory: Reports significant dyspn ea post-surgical intervention. - Neurological: Reports difficulty with sleep due to oxygen deprivation. - General: Denies recent illness or febr ile episodes. Physical Exam General: Chronically ill appearing, accompaned by Beth. in NAD Head: Normocephalic, atraumatic. Eyes: Pupils are equal, round and reactive to light and accommodation. Conjunctivae are clear. Lungs: Dim LLL otherwise clear throughout. 02 monitored during deep breathing and stayed > 97% No coughing or wheezing or dyspnea noted on exam. Speaking in full sentences Heart: 3/6 murmur Skin: Bruises noted to bilat arms and chest. Psych: Irritable, anxious at times, soft spoken, cooperative. Discussion Notes During the consultation, I discussed the management and coordination of palliative care services with the patient, understanding her challenges with referrals and prior communications. Emphasis was placed on establishing a formal referral to palliative care, which may provide a comprehensive approach to managing her symptoms and oxygen needs for comfort and not to maintain Sp02 > 88%. We reviewed the limitations imposed by insurance on immediate oxygen provision post-discharge and considered the temporary solution of dvqt-gpi-azjwuks oxygen until further assessments. Follow-up with cardiology scheduled on the was acknowledged, and the role of visiting nurses was clarified as part of her current care plan. Addressing her concern for oxygen availability, the critical role of palliative care in facilitating such resources was emphasized. Plan: Cont all meds Cont care w/ team Pal Care referral to [facility] placed Close f/u with PCP 1-2 weeks to ensure coordination of care. Patient Instructions - Follow up with palliative care service s to manage symptoms. - Await confirmation and attend the [facility] cardiology appointment on the . - Consider temporary use of epxs-ehs-jqt nter oxygen if respiratory discomfort persists. - Contact healthcare provider if experie ncing increased shortness of breath, severe chest discomfort, or trouble breathing during rest. Consent Patient was informed and verbally consented to the use of an ambient scribe for clinic note documentation during this visit. Total time spent caring for the patient today was 69 minutes. This includes time spent before the visit reviewing the chart, time spent during the visit, and time spent after the visit on documentation, reviewing laboratory results, diagnostic imaging, medications, performing a medically necessary evaluation, counseling on diagnoses, care coordination, ordering appropriate tests, ordering appropriate medications, review of tests performed by other providers, reporting test results with the patient, communication with other healthcare providers. [facility] Medical History 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 Autism Coronary artery disease Uncontrolled diabetes mellitus with hyperglycemia, with long-term current use of insulin Adrenal incidentaloma ESRD needing dialysis NSTEMI (non-ST elevated myocardial infarction) MDD (major depressive disorder) Hyperlipidemia due to type 1 diabetes mellitus Diabetic retinopathy Cauda equina syndrome Anasarca associated with disorder of kidney DM gastroparesis Abnormal abdominal MRI Hearing loss in right ear Hearing loss in left ear RSV infection Hypertensive urgency Diabetes mellitus type 1, uncontrolled Gastroparesis Moderate persistent asthma, uncomplicated Chronic GERD Cyclic vomiting syndrome Surgical History AVF (arteriovenous fistula) Previous back surgery Family History Father Diabetes Paternal Grandfather Diabetes Mother No known problems Social History Housing: Apartment Alcohol intake: unknown Patient Tobacco Use Status: Former Tobacco user e-Cigarette/Vaping Use: Never Used Second Hand Smoke Exposure: No Substance Use Type: Marijuana Advance Directives Date on File: 08/31/22 service: No Current occupational status: disabled Current occupational exposures/hazards: No Cognitive needs: No Hearing needs: No Vision needs: No Questionnaire Thrive Questionnaire Date Thrive assessed: 07/22/24 I am a: Patient What is your living situation today?: I have a steady place to live Within the past 12 months, did the food you bought not last and you didn't have the money to get more?: Never true Within the past 12 months, did you worry whether your food would run out before you got money to buy more?: Never true Do you have trouble paying for medicines?: No Do you have trouble getting transportation to medical appointments?: No Do you have trouble paying your heating and electricity bill?: No Do you have trouble taking care of your child, family member or friend?: No Do you have trouble with day-to-day activities such as bathing, preparing meals, shopping, managing finances, etc.?: No Are you currently unemployed and looking for a job?: No Are you interested in more education?: No Please select the resources that you would like help with: None Currently or been in a relationship where the following occur: No concerns reported THRIVE Score: 0 AUDIT C Alcohol Use Questionnaire (AUDIT-C) 3. How often do you have six or more drinks on one occasion?: Never Total Score: 0 TERRY-7 AMB Questionnaire TERRY-7 Date TERRY - 7 assessed: 12/23/24 Feeling nervous, anxious, or on edge: 0 = Not at all Not being able to stop or control worryin = Not at all Worrying too much about different things: 0 = Not at all Trouble relaxin = Not at all Being so restless that it is hard to sit still: 0 = Not at all Becoming easily annoyed or irritable: 0 = Not at all Feeling afraid as if something awful might happen: 0 = Not at all Total TERRY-7 score (0-4 normal; 5-9 mild; 10-14 moderate; 15-21 severe): 0 Source: Developed by Drs. Channing Funes, Tenisha Foley, Mohan Fagan and colleagues, with an educational francis from [employer]. TERRY-7 Assessment Billing TERRY-7 Assessment Tool: TERRY-7 Assessment 59475 Physical exam (Primary Care) Tobacco/Smoking Status: Tobacco use Status Tobacco use date assessed 11/07/24 12/18/24 08:00 Patient Tobacco Use Status Former Tobacco user 12/18/24 08:00 e-Cigarette/Vaping Use Never Used 12/18/24 08:00 Thrive Assessment: Date of Thrive Assessment Date Thrive assessed 07/22/24 12/18/24 08:00 Currently or been in a relationship where the following occur: No concerns reported Office Procedures 6 Minute Walk 23539 - 6 Minute Walk (DO NOT BILL SHE WAS NOT ABLE TO WALK ) Coding Level of Care Code TCM High MDM <= 7 Days Complex EM visit Add On G2211 Diagnoses Hospital discharge follow-up Z09 Goals of care, counseling/discussion Z. Palliative care encounter Z51.5 Dependence on renal dialysis Z99.2 ESRD needing dialysis N18.6; Z99.2 NSTEMI (non-ST elevated myocardial infarction) I21.4 End stage congestive heart failure I50.84 History of heart artery stent Z95.5 Hypertension complicating diabetes E11.59; I15.2 Hyperlipidemia due to type 1 diabetes mellitus E10.69; E78.5 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 on chronic dialysis E10.22; N18.6; Z99.2 Chronic kidney disease stage: on chronic dialysis CPT Codes Coding ([id number]) [facility] OUTPT/OFFICE VIS - G2212 Additional Codes TERRY-7 Assessment Billing - TERRY-7 Assessment Tool: TERRY-7 Assessment 47098 ([id number]) Assessment & Plan Assessment & Plan (1) Hospital discharge follow-up: Code(s): Z09 - Encounter for follow-up examination after completed treatment for conditions other than malignant neoplasm (2) Goals of care, counseling/discussion: Code(s): Z.89 - Other specified counseling Category: Medical (3) Palliative care encounter: Code(s): Z51.5 - Encounter for palliative care Category: Medical (4) Dependence on renal dialysis: Comment: As a result of diabetes on renal dialysis. BUN 71, creatinine 8.56, EGFR 5 Code(s): Z99.2 - Dependence on renal dialysis Category: Medical (5) ESRD needing dialysis: Code(s): N18.6 - End stage renal disease; Z99.2 - Dependence on renal dialysis Category: Medical (6) NSTEMI (non-ST elevated myocardial infarction): Code(s): I21.4 - Non-ST elevation (NSTEMI) myocardial infarction Category: Medical (7) End stage congestive heart failure: Comment: 12/09/2024 ECHO EF 17% [facility] Code(s): I50.84 - End stage heart failure Category: Medical (8) History of heart artery stent: Onset Date: 12/2024 Code(s): Z95.5 - Presence of coronary angioplasty implant and graft Category: Surgical (9) Hypertension complicating diabetes: Code(s): E11.59 - Type 2 diabetes mellitus with other circulatory complications; I15.2 - Hypertension secondary to endocrine disorders Category: Medical (10) Hyperlipidemia due to type 1 diabetes mellitus: Comment: On statin Code(s): E10.69 - Type 1 diabetes mellitus with other specified complication; E78.5 - Hyperlipidemia, unspecified Category: Medical (11) 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: Comment: Managed by renal at [facility], on dialysis Code(s): E10.22 - Type 1 diabetes mellitus with diabetic chronic kidney disease Category: Medical Qualifiers: Chronic kidney disease stage: on chronic dialysis Qualified Code(s): E 10.22 - Type 1 diabetes mellitus with diabetic chronic kidney disease; N18.6 - End stage renal disease; Z99.2 - Dependence on renal dialysis Plan . Orders: Referrals 2 Palliative Care Referral I21.4 - Non-ST elevation (NSTEMI) myocardial infarction, Z51.5 - Encounter for palliative care, Z71.89 - Other specified counseling Patient Instructions: Patient Instructions - Follow up with palliative care services to manage symptoms. - Attend the scheduled cardiology appointment on the . - Consider temporary use of qrse-lrd-vqjocks oxygen if respiratory discomfort persists. - Contact healthcare provider if experiencing increased shortness of breath, severe chest discomfort, or trouble breathing during rest. - Telehealth fu with PCP 1-2 weeks to ensure needs are met
[2024-12-23 15:01] VITALS: BP 120/60; PULSE 79; RESP 16; TEMP 37.4; O2SAT 96; BMI 39.5
[2024-12-23 15:37] VITALS: PULSE 84; O2SAT 97
--- OUTSIDE RECORDS SUMMARY | 2024-12-23 16:02 | XMS_ITS | Clinical Summary ---
Author Organization [facility] Address [address] [place] [address] Care Team Providers Care Printing Plate Setter Name Role Phone Elkin Renia ESPERANZA Primary Care Provider Allergies No known active allergies Medications * This document contains information received from the source organization and may not represent a complete record from that organization. atorvastatin (LIPITOR) 40 MG tablet Take 1 tablet (40 mg total) by mouth nightly. 3 Active losartan (COZAAR) 100 MG tablet Take 1 tablet (100 mg total) by mouth daily. 3 Active montelukast (SINGULAIR) 10 MG tablet Take 1 tablet (10 mg total) by mouth nightly. 3 Active OMEprazole (PriLOSEC) 40 MG capsule Take 1 capsule (40 mg total) by mouth every morning before breakfast. 3 Active sevelamer carbonate (RENVELA) 800 MG tablet Take 1 tablet (800 mg total) by mouth 3 (three) times a day. 2 Active amLODIPine (NORVASC) 10 MG tablet Take 1 tablet (10 mg total) by mouth daily. 3 Active verapamil (VERELAN PM) 120 MG 24 hr capsule Take 1 capsule (120 mg total) by mouth nightly. Active traZODone (DESYREL) 150 MG tablet Take 1 tablet (150 mg total) by mouth nightly. 3 Active buPROPion (WELLBUTRIN XL) 300 MG 24 hr tablet Take 1 tablet (300 mg total) by mouth every morning. 3 Active clonazePAM (KlonoPIN) 0.5 MG tablet Take 1 tablet (0.5 mg total) by mouth 2 (two) times a day as needed. For Anxiety 3 Active insulin aspart (NovoLOG FlexPen) 100 UNIT/ML prefilled pen injection Inject under the skin 3 (three) times a day before meals. 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 Increase as your blood sugars increase 9 mL 3 Active albuterol (PROVENTIL HFA; VENTOLIN HFA) 108 (90 Base) MCG/ACT inhalerIndication s:Mild intermittent asthma, unspecified whether complicated Inhale 2 puffs every 4 (four) hours as needed for wheezing or shortness of breath. 1 each 1 3 Active acetaminophen (TYLENOL) 325 MG tabletIndications :Back pain Take 3 tablets (975 mg total) by mouth every 4 (four) hours as needed for mild pain, headaches or fever. 360 tablet 3 Active carvedilol (COREG) 3.125 MG tabletIndications :Essential hypertension Take 1 tablet (3.125 mg total) by mouth 2 (two) times a day with meals. 60 tablet 1 3 Active senna-docusate (SENNA-S) 8.6-50 MGIndications:Con stipation, unspecified constipation type Take 2 tablets by mouth nightly. 60 tablet 3 Active polyethylene glycol (miraLAx) 17 g packetIndications :Constipation, unspecified constipation type Take 1 packet (17 g total) by mouth daily as needed for constipation. 14 packet 3 Active HYDROmorphone (DILAUDID) 2 MG tabletIndications :Back pain Take 1-2 tablets (2-4 mg total) by mouth 4 times daily (every 6 hours) as needed. Max 6 tabs daily. 42 tablet 3 Active Active Problems Problem Noted Date Diagnosed [...] place to sleep or slept in a assisted (including now)? No 09/03/2022 Comments Unknown Sex and Gender Information Value Date Recorded Sex Assigned at Female 08/31/2022 8:50 PM EDT Legal Sex Female 4:43 PM EDT Gender Identity Female 08/31/2022 8:50 PM EDT Sexual Orientation Homosexual (lesbian or morrell) 0 09/02/2022 10:23 PM EDT Last Filed Vital Signs Vital Sign Reading Time Taken Comments Blood Pressure 148/66 09/05/2022 3:50 PM EDT Pulse 70 09/05/2022 3:50 PM EDT Temperature 36.9 C (98.4 F) 09/05/2022 3:50 PM EDT Respiratory Rate 20 09/05/2022 3:50 PM EDT [...] 09/06/2023 09/05/2022, 09/04/2022, 09/03/2022, Additional history exists COVID-19 Vaccine ( - 2023- season) 2024 Influenza Vaccine 01/09/2025 06/05/2021, 07/23/2018 HPV Vaccines Aged Out No longer eligi [...] 65 - 99 mg/dL 09/05/2022 8:57 AM EDT [facility] Comment:Fasting: <100 mg/dL, Non-Fasting: <200 mg/dL (ADA 2005) Blood Urea Nitrogen (BUN) 66(H) 8 - 21 mg/dL 09/05/2022 8:57 AM EDT [facility] Creatinine 9.8(H) 0.4 - 1.1 mg/dL 09/05/2022 8:57 AM EDT [facility] eGFR 5(L) >59 09/05/2022 8:57 AM T [facility] Comment: CKD-EPI (2020) in mL/min/1.73 sq meters. Reported eGFR is based on the CKD-EPI equation that does not use a race coefficient as of 08/15/2022 Sodium 139 136 - 145 mmol/L 09/05/2022 8:57 AM [facility] Potassium 4.5 3.4 - 5.3 mmol/L 09/05/2022 8:57 AM [facility] Chloride 98 98 - 107 mmol/L 09/05/2022 8:57 AM [facility] CO2 20(L) 22 - 33 mmol/L 09/05/2022 8:57 AM [facility] Anion Gap 21(H) 7 - 17 09/05/2022 8:57 AM [facility] Calcium 9.4 8.7 - 10.5 mg/dL 09/05/2022 8:57 AM [facility] BUN/Creatinine Ratio 7(L) 10.0 - 25.0 Ratio 09/05/2022 8:57 AM [facility] Blood specimen (specimen) (Plasma/Serum) 09/05/2022 7:48 AM EDT 09/05/2022 8:28 AM EDT september Salena DO LAB BLOOD ORDERABLES Final Res ult HOSPITAL LAB See Below [address] [address] * (ABNORMAL) Hemoglobin A1c with Estimated Average Glucose (09/01/2022 6:06 AM EDT) Hemoglobin A1C 6.5(H) <5.7 % 09/01/2022 8:23 AM T [facility] Comment: A1c% Interpretation 5.7 - 6.0 Increase risk of diabetes 6.1 - 6.4 Higher risk of diabetes > or = 6.5 Consistent with diabetes Diabetes Care, 33(Supp 1):S1-S61, 2009 Estimated Average Glucose 140 mg/dL 09/01/2022 8:23 AM T [facility] Blood specimen (specimen) Blood specimen / Unknown 09/01/2022 6:06 AM EDT 09/01/2022 6:11 AM EDT us Janice Smalls MD LAB BLOOD ORDERABLES Final Resu lt HOSPITAL LAB See Below [place] [address] [place] [address] from Last 3 Months or Most Recently Relevant to Health Maintenance Insurance [facility] MEDICARE OUT OF NETWORK [facility] [place] MEDICARE OUT OF NETWORK Advance Directives * Full Code (Latest Code Status on File) Date Activated Date Inactivated Comments 09/01/2022 4:52 AM Care Teams Printing Plate Setter Relationship Specialty Start Date End Date Medina Ren NP [address] [place] [address] PCP - General Family Medicine 08/31/22
--- OUTSIDE RECORDS SUMMARY | 2024-12-23 16:02 | XMS_ITS | Encounter Summary ---
Author Organization [facility] Address [address] [facility] [address] [place] [phone] Phone Care Team Providers Care Product Steward Name Role Phone Medina Ren MS SQL SERVER DEVELOPER Primary Care Provider [phone] Encounter Details Date Type Department Care Team ([facility] st Contact Info) Description 08/22/2021 Office Communication [facility] [address] [facility] [address] [place] [phone] Rachelle Lui, RN [address] [place] [phone] Social History Tobacco Use Types Packs/Day Years [...] on filedocumented in this encounter Care Teams Product Steward Relationship Specialty Start Date End Date Medina Ren NP [address] [place] [address] [phone] PCP - General Nurse Practitioner 01/03/21 documented as of this encounter
--- OUTSIDE RECORDS SUMMARY | 2024-12-23 16:02 | XMS_ITS ---
Author Name Amparo, Clinic Address [address] [place] [address] Phone [phone] Organization [facility] e, NA DOCUMENT DISCLAIMER Multiple document versions may exist, please be sure you review the latest version. The information in the [facility] Continuity of Care Document represents a summary of certain health and medical information. It may not contain the complete medical history for the patient and should be independently verified. The represented time in the document is Eastern Time. 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 [...] Dosage Route Start Date End Date Status Cinacalcet (Sensipar) 3X Week 30 mg Oral November 20, 2024 November 19, 2025 Active Heparin Sodium (Porcine) 1,000 Units/mL [...] October 30, 2024 October 29, 2025 Active Iron Sucrose (Venofer) 1X Week 50 mg Intravenous - push December 04, 2024 December 03, 2025 Active Midodrine HCl (Proamatine) PRN hypotension 5 mg Oral October 23, 2024 October 22, 2025 Active Midodrine HCl (Proamatine) PRN hypotension 5 mg Oral November 20, 2024 November 19, 2025 Active Midodrine HCl (Proamatine) PRN hypotension 5 mg Oral October 23, 2024 October 22, 2025 Active Midodrine HCl (Proamatine) PRN 20 mg Oral December 18, 2024 December 17, 2025 Active Vitamin D (Calcitriol) Oral During Dialysis, Every Treatment 0.5 mcg Oral October 23, 2024 October 22, 2025 Active Mircera Once 75 mcg Intravenous - push December 20, 2024 Discontinued Home Medications Medication Instructions Dosage Route Start Date End Date [facility] albuterol sulfate 90 mcg/actuation Inhale using inhaler every four to six hours as needed 2 puff INHALATION November 15, 2024 Active Aspirin Childrens 81 mg Take by mouth once a day 1 tablet ORAL October 08, 2023 Active atorvastatin 80 mg Take by mouth once a day 1 tablet ORAL December 07, 2023 Active bisoprolol fumarate 5 mg Take by mouth once a day 1/2 tablet ORAL December 18, 2024 Active clonazepam 1 mg Take by mouth twice a day 1 tablet ORAL December 18, 2024 Active duloxetine 30 mg Take by mouth once a day 1 capsule ORAL December 18, 2024 Active ezetimibe 10 mg Take by mouth three times a day 1 tablet ORAL December 18, 2024 Active Novolog Mix 70-30FlexPen U-100 100 unit/mL (70-30) Inject as directed SUBCUTANEOUS January 18, 2024 Active omeprazole 40 mg Take by mouth once a day 1 capsule ORAL December 18, 2024 Active Singulair 10 mg Take [...] subcutaneously once a day 20 unit SUBCUTANEOUS December 18, 2024 Active ezetimibe 10 mg Take by mouth once a day 1 tablet ORAL December 18, 2024 Discontinued VITAL SIGNS Post-Treatment Vital Signs Vital Sign Value Date / Time Blood Pressure-sitting 114/68 mmHg December 20, 2024 12:25 PM Heart Rate 72 beats per minute December 20 12:25 PM Respiratory Rate 18 breaths per minute December 20, 2024 12:25 PM Temperature 96.8 deg. F December 20, 2024 12 :25 PM Weight Vital Sign Value Date / Time Estimated Dry Weight 111 kg December 20 11:59 PM Pre-Dialysis 112.60 kg December 20, 2024 12 :25 PM Post-Dialysis 111.40 kg December 20, 2024 12 :25 PM Other Other Value Date / Time Height 165 cm September 21, 2023 1 2:00 AM [facility]CERNS Tuberculosis Testing TST Date Administered TST Date Read TST Result 09/26/2023 09/28/2023 Negative (<5) mm LAB RESULTS Hematology Result Type Result Value Relevant Referen ce Range Interpretation Date UIBC/TIBC 134 mcg/dL 155 - 355 mcg/dL [...] 196 mcg/dL 185 - 515 mcg/dL - ua2024 UIBC/TIBC 155 mcg/dL 155 - 355 mcg/dL - August 01, 2024 Ferritin 752 ng/mL 10 - 291 ng/mL High August 27, 2024 Transferrin Sat. (Calc) 34 % 20 - 55 % - August 27, 2024 TIBC (Calc) 218 mcg/dL 185 - 515 mcg/dL - August 092024 UIBC/TIBC 144 mcg/dL 155 - 355 mcg/dL Low August MCH 31.1 pg 27.0 - 31.0 pg [...] % 11.5 - 14.5 % - September 24, 025 MCHC 33.1 g/dL 30.0 - 36.0 g/dL - September Retic HGB (CHr) 30.9 pg 25.4 - 31.8 pg - September 24, 2024 Hemoglobin x 3 35.4 % 36.0 - 48.0 % Low September 102024 Hemoglobin x 3 36.3 % 36.0 - 48.0 % - September 112024 Hemoglobin x 3 33.9 % 36.0 - 48.0 % Low October 15, 2024 Hemoglobin x 3 31.5 % 36.0 - 48.0 % Low October 23, 2024 Ferritin 573 ng/mL [...] - 48.0 % Low October 30, 2024 Hemoglobin x 3 33 % 36.0 - 48.0 % Low November 06, 2024 Hemoglobin x 3 32.1 % 36.0 - 48.0 % Low November Hemoglobin x 3 32.4 % 36.0 - 48.0 % Low November HGB 10.8 g/dL 12.0 - 16.0 g/dL Low November 27, 2024 Ferritin 483 ng/mL 10 - 291 ng/mL High November 27 Hemoglobin x 3 32.4 % 36.0 - 48.0 % Low November UIBC/TIBC 149 mcg/dL 155 - 355 mcg/dL Low November 27, 2024 TIBC (Calc) 207 mcg/dL 185 - 515 mcg/dL - November Iron 58 mcg/dL 30 - 160 mcg/dL - November 27, 2024 Transferrin Sat. (Calc) 28 % 20 - 55 % - November 27, 2024 HGB 10.3 g/dL 12.0 - 16.0 g/dL Low December 04, 2024 Hemoglobin x 3 30.9 % 36.0 - 48.0 % Low November HGB 8.0 g/dL 12.0 - 16.0 g/dL Low December 18, 2024 Hemoglobin x 3 24 % 36.0 - 48.0 % Low December Metabolic/Renal Result Type Result Value Relevant Referen ce Range Interpretation Date Hemoglobin A1c 7.5 % 4.8 - 5.9 % High June 112024 Hemoglobin A1c 6.6 % 4.8 - 5.9 [...] mEq/L 3.5 - 5.1 mEq/L - November 04, 025 BUN 90 mg/dL 6 - 19 mg/dL High November 13 BUN, Post 24 mg/dL 6 - 19 mg/dL High November 13 URR, Calc 73 % 65 - 80 % - November 13, 2024 Bicarbonate 22 mEq/L 22 - 29 mEq/L - November 27 Potassium 5.9 mEq/L 3.5 - 5.1 mEq/L High November 27, 2024 Creatinine, Serum 11.19 mg/dL 0.60 - 1.30 mg/dL High November 27, 2024 Sodium 132 mEq/L 136 - 145 mEq/L Low November 27, 2024 BUN, Post 17 mg/dL 6 - 19 mg/dL - December 18 URR, Calc 71 % 65 - 80 % - December 18, 2024 BUN 58 mg/dL 6 - 19 mg/dL High December 18 HD Adequacy Result Type Result Value Relevant Referen ce Range Interpretation Date Krt/V 0.00 No Reference Ran ge Provided - July 16, 2024 Krt/V 0.00 No Reference Ran ge Provided - August 13, 2024 Krt/V 0.00 No Reference Ran ge Provided - August 20, 2024 Krt/V 0.00 No Reference Ran ge Provided - September 10, 2024 Krt/V 0.00 No Reference Ran ge Provided - September 17, 2024 Krt/V 0.00 [...] residual 2.4 No Reference Range Provided - November 13, 2024 wstdKt/V 2.4 No Reference Ran ge Provided - November 13, 2024 wstdKt/V, residual 0.0 No Reference Range Provided - November 13, 2024 Krt/V 0.00 No Reference Ran ge Provided - November 13, 2024 spKt/V (Daugirdas II) 1.54 No Reference Range Provided - November 13, 2024 spKt/V Gotch 1.58 No Reference Ran ge Provided - November 13, 2024 eKt/V ([place]) 1.34 No Reference Range Provided - November 13, 2024 wstdKt/V without residual 0.7 No Reference Range Provided - December 18, 2024 wstdKt/V, residual 0.0 No Reference Range Provided - December 18, 2024 spKt/V (Daugirdas II) 1.32 No Reference Range Provided - December 18, 2024 wstdKt/V 0.7 No Reference Ran ge Provided - December 18, 2024 eKt/V ([place]) 1.14 No Reference Range Provided - December 18, 2024 Bone/Mineral Result Type Result Value Relevant Referen ce Range Interpretation Date PTH-Intact, Plasma 2209 pg/mL 16 - 80 pg/mL High Jun ua2024 Vitamin D 25 Hydroxy 21.0 ng/mL 30.0 - 100.0 ng/mL Low June 25, 2024 PTH-Intact, Plasma 2757 pg/mL 16 - 80 pg/mL High Feb ruary 2024 PTH-Intact, Plasma 2252 pg/mL 16 - 80 pg/mL High Mar 2024 Calcium, Total 8.7 mg/dL 8.4 - [...] mg/dL 2.6 - 4.5 mg/dL High October 30 025 Ca x P Product 89 0 - 54 High October 30 25 PTH-Intact, Plasma 2521 pg/mL 16 - 80 pg/mL High October 30, 2024 Phosphorus 9.9 mg/dL 2.6 - 4.5 mg/dL High November 27, 2024 Ca x P Product 89 0 - 54 High November 27 Calcium, Total 9.0 mg/dL 8.4 - 10.2 mg/dL - November 27, 2024 Corrected Ca x P Product 90 0 - 54 High November 27, 2024 PTH-Intact, Plasma 2642 pg/mL 16 - 80 pg/mL High Nov Liver/Nutrition Result Type Result Value Relevant Reference Range Interpre tation SGPT (ALT) 8 U/L 7 - 52 U/L - September 24, 2024 Glucose 106 mg/dL 70 - 100 mg/dL High September 24, 2024 Albumin (BCG) 3.7 g/dL 3.5 - 5.2 g/dL - September 092024 eNPCR 1.31 No Reference Range Provided - October 15, 2024 Glucose 147 mg/dL 70 - 100 mg/dL High October 30 25 Albumin (BCG) 4.0 g/dL 3.5 - 5.2 g/dL - October 30, 2024 SGPT (ALT) 10 U/L 7 - 52 U/L - October 30, 2024 eNPCR 1.42 No Reference Range Provided - November 13, 2024 Albumin (BCG) 3.9 g/dL 3.5 - 5.2 g/dL - November SGPT (ALT) 11 U/L 7 - 52 U/L - November 27, 2024 Glucose 130 mg/dL 70 - 100 mg/dL High November 27 025 Immunochemistry Result Type Result Value Relevant Reference [...] Negative No Reference Range Provided - November 27, 2024 DIALYSIS PRESCRIPTION Conventional Hemodialysis Data Element Value Order Date/Time December 20, 2024 Frequency 3X Week Treatment Days TueThuSat Dialyzer [id number] Optiflux Treatment Time (Total Minutes) 240 min Blood Flow Rate (mL/min) 450 mL/min Dialysate Flow Rate Manual 800 Estimated Dry Weight 111 kg Dialysate Concentrate 2.0 K, 2.50 Ca, 1. 0 Mg, 100 Dextrose ([id number]) Sodium (mEq/L) 138 mEq/L Bicarb Machine Setting (mEq/L) 36 mEq/L Dialysis Access Hemodialysis-CV Cath eter-Tunneled, Chest, Right Subclavian IMMUNIZATIONS Vaccine Date Dose Route Status Flu Vaccine - Flucelvax Trivalent March 28, 2024 0.5 mL Intramuscular Completed PREVNAR 20 March 21, 2024 0.5 mL Intramuscular Compl [...] Description Ordered By Effective Date Resuscitation status Do Not Resuscitate (DNR) Jerry Palma Dec 18, 2024 DIALYSIS TREATMENTS Conventional Hemodialysis Date Pre-Treatment Vitals Post-Treatment Josefina ls Duration (hr) BFR (mL/min) Dialysate Dialyzer Dialysis Access Meds Admin December 06, 2024 Weight 109.50 kg Weight 106.40 kg 04:02:00 450 2.0 K, 2.50 Ca, 1.0 Mg, 100 Dextrose ([id number]) 160nre Optifl ux Blood Pressure-sitting 154/86 mmHg Blood Pressure-sit ting 166/86 mmHg Heart Rate 87 beats per minute Heart Rate 96 beats per minute Respiratory Rate 18 breaths per minute Respiratory Rate 18 breaths per minute Temperature 97.2 deg. F Temperature 97.4 deg. F December 18, 2024 Weight 113.00 kg Weight 113.90 kg 03:40:00 450 2.0 K, 2.50 Ca, 1.0 Mg, 100 Dextrose ([id number]) 160nre Optiflux Hemodialysis-CV Catheter-Tunneled, Chest, Right Subclavian Cinacalcet (Sensipar); 30mg,Oral Heparin Sodium (Porcine) 1,000 Units/mL Catheter Lock Arterial; 2000units,Arterial [place] Heparin Sodium (Porcine) 1,000 Units/mL Catheter Lock Venous; 2000units,Venous [place] Heparin Sodium (Porcine) 1,000 Units/mL Systemic; 500units,Intravenous - push Heparin Sodium (Porcine) 1,000 Units/mL Systemic; 5000units,Intravenous - push Iron Sucrose (Venofer); 50mg,Intravenous - push Midodrine HCl (Proamatine); 5mg,Oral Midodrine HCl (Proamatine); 20mg,Oral Midodrine HCl (Proamatine); 5mg,Oral Vitamin D (Calcitriol) Oral; 0.5mcg,Oral Blood Pressure-sitting 109/42 mmHg Blood Pressure-sit ting 112/58 mmHg Heart Rate 69 beats per minute Heart Rate 78 beats per minute Respiratory Rate 18 breaths per minute Respiratory Rate 18 breaths per minute Temperature 97.5 deg. F Temperature 97.4 deg. F December 20, 2024 Weight 112.60 kg Weight 111.40 kg 03:06:00 450 2.0 K, 2.50 Ca, 1.0 Mg, 100 Dextrose ([id number]) 160nre Optiflux Hemodialysis-CV Catheter-Tunneled, Chest, Right Subclavian Cinacalcet (Sensipar); 30mg,Oral Heparin Sodium (Porcine) 1,000 Units/mL Catheter Lock Arterial; 2000units,Arterial [place] Heparin Sodium (Porcine) 1,000 Units/mL Catheter Lock Venous; 2000units,Venous [place] Heparin Sodium (Porcine) 1,000 Units/mL Systemic; 500units,Intravenous - push Heparin Sodium (Porcine) 1,000 Units/mL Systemic; 5000units,Intravenous - push Midodrine HCl (Proamatine); 5mg,Oral Midodrine HCl (Proamatine); 20mg,Oral Midodrine HCl (Proamatine); 5mg,Oral Mircera; 75mcg,Intravenous - push Vitamin D (Calcitriol) Oral; 0.5mcg,Oral Blood Pressure-sitting 106/65 mmHg Blood Pressure-sit ting 114/68 mmHg Heart Rate 80 beats per minute Heart Rate 72 beats per minute Respiratory Rate 18 breaths per minute Respiratory Rate 18 breaths per minute Temperature 98.7 deg. F Temperature 96.8 deg. F
--- OUTSIDE RECORDS SUMMARY | 2024-12-23 16:03 | XMS_ITS | Clinical Summary ---
Author Organization [facility] Address [address] [place] [address] Care Team Providers Care Ecommerce Analyst Name Role Phone Unavailable Primary Care Provider Unavailabl e Social History Tobacco Use Types Packs/Day Years Used Date Smoking Tobacco: Never Assessed Sex and Gender Information Value Date Recorded Sex Assigned at Not on file Gender Identity Not on file Sexual Orientation Not on file Plan of Treatment Not on file
--- OUTSIDE RECORDS SUMMARY | 2024-12-23 16:03 | XMS_ITS | Clinical Summary ---
Author Organization [facility] Address [address] [place] [address] Care Team Providers Care Surgical Dental Assistant Name Role Phone Lucy Pop CERTIFIED NEURODIAGNOSTIC TECHNOLOGIST Primary Care Provider [phone] Source Comments PLEASE NOTE, if this patient [...] Plan of Treatment Not on file Insurance [facility] MEDICAID DENTAL [facility] Care Teams Surgical Dental Assistant Relationship Specialty Start Date End Date Lucy Pop FNP [address] [place] [address] PCP - General 08/06/18
--- OUTSIDE RECORDS SUMMARY | 2024-12-23 16:03 | XMS_ITS | Clinical Summary ---
Author Organization [address] Address [address] [place] [phone] Phone Care Team Providers Care Lens Grinder Rough Name Role Phone Nicholas Yang MD Primary Care Provider [phone] Allergies Active Allergy Reactions Criticality Noted Date [...] mouth 1 (one) time each day. Active cholecalciferol (VITAMIN D-3) 50 mcg (2,000 unit) capsule Take 1 capsule (2,000 Units total) by mouth 1 (one) time each day. Active insulin aspart (NovoLOG Flexpen U-100 Insulin) 100 unit/mL (3 mL) injection pen Daily with sliding scale. Max dose of 100 units 15 mL 5 5 Active blood-glucose sensor (FreeStyle Fan 3 Plus Sensor) device Box = Kit = EA 2 each 11 5 Active BD Esperanza 2nd Gen Pen Needle 32 gauge x needleIndication s:Type 1 diabetes mellitus with other specified complication ([facility] V24, [facility] V28) USE 4 NEEDLES WITH INSULIN PENS DIRECTED DAILY 100 each 2 5 Active insulin degludec (TRESIBA FlexTouch) 100 unit/mL (3 mL) injection penIndications:T ype 1 diabetes mellitus with other specified complication ([facility] V24, [facility] V28) 20 units daily Subcutaneous 30 mL 1 5 Active ezetimibe (ZETIA) 10 mg tablet Take 1 tablet (10 mg total) by mouth 1 (one) time each day. 60 tablet 2 5 Active Active Problems Problem Noted [...] medical therapy. Acute hypoxic respiratory fa ilure ([facility] V24, [facility] V28) 09/14/2023 Atherosclerotic heart disease 09/14/2023 Assessment [...] 911. NSTEMI (non-ST elevated myoc ardial infarction) ([facility] V24, [facility] V28) 09/14/2023 Overview (03/25/2024): Last Assessment & Plan: With three-vessel coronary artery disease and ischemic cardiomyopathy. I do not think PCI is a good idea. So far, she has no angina symptoms. Unfortunately, she is quite adamant that she will not get any care in [facility]. I will try to refer her to Dr. Almanza in [facility] as long as her insurance allowed her. Will continue high-dose statin and aspirin. Will need to repeat lipid profile. Pulmonary edema 09/14/2023 Encounters Date Type Department Care Team Description 11/06/2024 Telephone [facility] - [address] [place] [address] Dasha Villa MA Med Refill (See note) 10/30/2024 Telephone Endocrinology - [place] [phone] Perri Loyola MD Labs Only 10/23/2024 Telephone Endocrinology - [place] [address] [place] [address] Perri Loyola MD 10/22/2024 Telephone Endocrinology - [place] [address] [place], [place] [phone] Perri Loyola MD Medication Problem (Tresiba 200 unit/ ml ) 10/09/2024 Telephone Endocrinology - [place] [phone] Amena Up PA 10/08/2024 Telephone Endocrinology - [place] [address] [place], [place] [phone] Perri Loyola MD PRIOR AUTHORIZATION from Last 3 Months Medical History Medical History Date Comments Volume overload DX:Volume overlo ad Influenza DX:Influenza Hyperglycemia due to diabete s mellitus ([facility] V24, [facility] V28) DX:Hyperglycemia due to earlene betes mellitus ([facility]) Social History Tobacco Use Types Packs/Day [...] 70 09/05/2024 9:10 AM EDT Temperature 36.3 C (97.4 F) 07/29/2024 4:02 PM EST Respiratory Rate 15 07/29/2024 4:02 PM EST [...] Description 02/26/2025 10:40 AM EDT Office Visit [facility] - [address] [facility] [address] [place] [address] Elicia Chan NP [address] [place] [id number] Health Maintenance Due Date Last Done Comments [...] Sugar Control Test (HGBA1C) 06/13/2024 09/01/2022, 04/03/2019 Influenza Vaccine (#1) 2025 , 06/05/2021, 04/16/2019, Additional history exists DTaP,Tdap,and Td Vaccines (3 - Td or Tdap) 07/23/2028 07/23/2018, 09/09/2012 MMR Vaccines Aged Out 09/09/2012 No longer eligi ble based on patient's age to complete this topic Hepatitis B Vaccines Completed 02/29/2024, 12/26/2023, 11/30/2023, Additional history exists Pneumococcal Vaccine: Pediatrics (0 to 5 Years) and At-Risk Patients (6 to 49 Years) Completed 03/21/2024, 07/23/2018, 12/19/2016 HIB Vaccines Aged Out No longer eligi [...] Procedure Name Priority Date/Time Associated Diagnosis Comments EXTERNAL CLINICAL LAB Routine 10/31/2024 10:15 AM EDT from Last 3 Months Results * External clinical lab (10/31/2024 10:15 AM EDT) Historical Provider LAB BLOOD ORDERABLES Tila l Result from Last 3 Months Insurance [facility] Member Subscriber Plan / Payer (Ef fective 2022-Present) Name:Phoenix Leach Relation to Subscriber:Self Name:Phoenix Leach Payer ID:[id number] Group ID:[id number] Type:Not on file Address: [address] [place] [address] Advance Directives Documents on File Type Date Recorded 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
--- OUTSIDE RECORDS SUMMARY | 2024-12-23 16:03 | XMS_ITS ---
Author Name [facility] Unknown History of Medication Use Medication Directions Dispensed Refills Start Date End Date Stat us acetaminophen (TYLENOL) 325 MG tablet Take 3 tablets (975 mg total) by mouth every 4 (four) hours as needed for mild pain, headaches or fever. 09/05/2022 10/06/2022 active albuterol (PROVENTIL HFA; VENTOLIN HFA) 108 (90 Base) MCG/ACT inhaler Inhale 2 puffs every 4 (four) hours as needed for wheezing or shortness of breath. 09/05/2022 10/06/2022 active polyethylene glycol (miraLAx) 17 g packet Take 1 packet (17 g total) by mouth daily as needed for constipation. 09/05/2022 10/06/2022 active Tresiba FlexTouch 200 UNIT/ML [...] (120 mg total) by mouth nightly. active Problems Problem Status Onset Date Problem Type Date of Resoluti on Source ESRD (end stage renal disease) active 2022-09-01 ProblemAct [facility] Hyperlipidemia active 2018-11-[address] Diabetic nephropathy associated with type 2 diabetes mellitus active 2022-09-01 ProblemAct [facility] Back pain of thoracolumbar region active 2022-09-01 ProblemAct [facility] Anxiety disorder active 2018-11-17 ProblemAct [facility] Degeneration of intervertebral disc of lumbar region active 2022-09-01 ProblemAct [facility] Essential hypertension active 2018-10-15 ProblemAct [facility] Type 1 diabetes mellitus with diabetic chronic kidney disease active 2020-10-25 ProblemAct [facility] Mild intermittent asthma active 2022-09-01 ProblemAct [facility] Diabetes mellitus treated with insulin active 2022-09-01 ProblemAct [facility] Encounters Encounter Type Encounter Reason Primary Diagnosis Location Date Inpatient Dorsalgia, unspecified Dorsalgia, unspecified [facility] 08/31/2022 Care Team Organization Name Specialty Phone Email Start Date End [facility] 04/13/2023 024 [facility] 03/03/2023 024 [facility] 09/01/2022 [facility] A[facility]OME[facility] Primary Care 08/31/20222022 [place]
== END 2024-12-23 15:42 | disposition home or self-care (01) ==
LOC: HO.HMCFM 14:42
PROVIDERS: PCP Family Medicine; Visit Provider Nurse Practitioner Family
DX: E11.59 Type 2 diabetes mellitus with other circulatory complications (principal); N18.6 End stage renal disease; I50.84 End stage heart failure; I25.2 Old myocardial infarction; Z71.89 Other specified counseling; Z51.5 Encounter for palliative care; Z99.2 Dependence on renal dialysis; Z95.5 Presence of coronary angioplasty implant and graft; I15.2 Hypertension secondary to endocrine disorders; E78.5 Hyperlipidemia, unspecified

== ENCOUNTER → 2024-12-23 14:42 | Outpatient (BNVA) | payer OTHER, SELFPAY | PROVIDERS: PCP Family Medicine; Visit Provider Nurse Practitioner Family | DX: F40.00 Agoraphobia, unspecified (principal); F31.9 Bipolar disorder, unspecified; F41.9 Anxiety disorder, unspecified; F50.819 Binge eating disorder, unspecified; E78.5 Hyperlipidemia, unspecified; J45.40 Moderate persistent asthma, uncomplicated; M54.50 Low back pain, unspecified; G89.29 Other chronic pain; E10.21 Type 1 diabetes mellitus with diabetic nephropathy; E10.22 Type 1 diabetes mellitus with diabetic chronic kidney disease; N18.6 End stage renal disease; K21.9 Gastro-esophageal reflux disease without esophagitis; I21.4 Non-ST elevation (NSTEMI) myocardial infarction; I50.84 End stage heart failure; E10.59 Type 1 diabetes mellitus with other circulatory complications; E10.69 Type 1 diabetes mellitus with other specified complication; I15.2 Hypertension secondary to endocrine disorders; Z09 Encounter for follow-up examination after completed treatment for conditions other than malignant neoplasm; Z95.5 Presence of coronary angioplasty implant and graft; Z71.89 Other specified counseling; Z99.2 Dependence on renal dialysis | CPT/HCPCS: 96127; 99212 ==

== ENCOUNTER 2024-12-29 15:30 | Outpatient (AMB) | payer OTHER, SELFPAY ==
--- NOTE | 2024-12-29 15:23 | A.OFFPC_ITS ---
Intake Visit Reasons: 1-[address] JERRI POWERS Intake Note: [place] presents for a telehealth follow up. Allergies Penicillins Allergy (Intermediate, Verified 12/29/24 15:24) compromises mental health Medication List - Last Reconciled 12/29/24 by Nicholas Yang MD albuterol sulfate 90 mcg/actuation (Ventolin HFA) 2 puffs PO Q4H PRN 1 month aspirin 81 mg PO DAILY 90 days atorvastatin 80 mg PO DAILY 90 days bisoprolol fumarate 2.5 mg PO DAILY blood sugar diagnostic (FreeStyle Lite Strips) Use to check blood sugar 4 times daily, before mealtimes and bedtime. blood-glucose meter (FreeStyle Lite Meter kit) Use to check blood sugar 4 times daily, before mealtimes and bedtime. blood-glucose sensor (GetbazzaStyle Fan 3 Sensor device) As directed blood-glucose,international trade specialist,cont (FreeStyle Fan 3 Pierce) As directed calcitriol 0.25 mcg PO TUTHSA cholecalciferol (vitamin D3) 50 mcg PO DAILY clonazepam 1 mg PO BID PRN diclofenac sodium 1% 4 grams topical QID 30 days ezetimibe 10 mg PO DAILY hydromorphone (Dilaudid) 2 mg PO Q6H PRN 28 days inhalational spacing device (Aerochamber MV spacer) As directed insulin aspart U-100 (Novolog FlexPen U-100 Insulin aspart) 1 sliding scale dose subcut USEASDIRECTD 30 days insulin degludec (Tresiba FlexTouch U-200 insulin) 20 units (0.1 mL) subcut BEDTIME 30 days insulin syringe-needle U-100 (BD Insulin Syringe Ultra-Fine) USE 3 TIMES A DAY lancets (FreeStyle Lancets) Use to check blood sugar 4 times daily, before mealtimes and bedtime. midodrine 10 mg PO TID montelukast 10 mg PO BEDTIME pantoprazole 40 mg PO DAILY pen needle, diabetic (BD Ultra-Fine Esperanza Pen Needle) As directed four times a day sucroferric oxyhydroxide (Velphoro) 500 mg PO TID ticagrelor 90 mg PO BID trazodone 300 mg PO BEDTIME Tobacco use date assessed: 12/29/24 Dental Screening Dental Screen Date: 12/29/24 Did you have a dental visit in the last 12 months?: No Did you have a dental problem in the last 6 months where you did not have access to dental care?: No Was dental information given to patient?: Patient declined HPI 1-[address] JERRI POWERS HPI Details 44 y/o female presents to f/u palliative care services via telemed. Pt presented to [facility] ED 12/08/2024 for chest pain x 3 days. Pt rulled in for NSTEMI and underwent PCI of L Main, LAD & Circumflex arterieson 12/10/2024. Pt was subsequently hypotensive and required intubation, placement of swan & Impella, and received pressors. Weaned off pressors and [facility] & Impella removed on 12/12/2024. Midodrine was continued. Course also complicated by DKA and she was treated with insulin drip. She resumed Dialysis with usual / schedule. Seen by Heart Failure team and started on Bisoprolol 2.5mg daily. Poor candidate for further surgical intervention. EF Now 17%. Will need to f/u with HF Team as OP. Cardiac Rehab - Does not plan to fu with Cardiac rehab . Has F/U with Cards, Appt 01/01/25 Palliative Care -Agreeable to Pal care. Not ready for ho spice. Reports 8/10 pain throughout the day. [facility] Medical History 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 Autism Coronary artery disease Uncontrolled diabetes mellitus with hyperglycemia, with long-term current use of insulin Adrenal incidentaloma ESRD needing dialysis NSTEMI (non-ST elevated myocardial infarction) MDD (major depressive disorder) Hyperlipidemia due to type 1 diabetes mellitus Diabetic retinopathy Cauda equina syndrome Anasarca associated with disorder of kidney DM gastroparesis Abnormal abdominal MRI Hearing loss in right ear Hearing loss in left ear RSV infection Hypertensive urgency Diabetes mellitus type 1, uncontrolled Gastroparesis Moderate persistent asthma, uncomplicated Chronic GERD Cyclic vomiting syndrome Surgical History AVF (arteriovenous fistula) Previous back surgery Family History Father Diabetes Paternal Grandfather Diabetes Mother No known problems Social History (Updated 12/29/24 @ 15:28 by Cassidy Gardiner MA) Housing: Apartment Alcohol intake: never Patient Tobacco Use Status: Former Tobacco user e-Cigarette/Vaping Use: Never Used Second Hand Smoke Exposure: No Use of substances other than those prescribed or required for medical reasons: No Substance Use Type: Marijuana Advance Directives Date on File: 08/31/22 service: No Current occupational status: disabled Current occupational exposures/hazards: No Cognitive needs: No Hearing needs: No Vision needs: No Questionnaire Thrive Questionnaire Date Thrive assessed: 07/22/24 TERRY-7 AMB Questionnaire TERRY-7 Date TERRY - 7 assessed: 12/23/24 Source: Developed by Drs. Channing Funes, Tenisha Folye, Mohan Fagan and colleagues, with an educational francis from [employer]. Physical exam (Primary Care) Tobacco/Smoking Status: Tobacco use Status Tobacco use date assessed 12/29/24 12/29/24 15:29 Patient Tobacco Use Status Former Tobacco user 12/29/24 15:29 e-Cigarette/Vaping Use Never Used 12/29/24 15:29 Thrive Assessment: Date of Thrive Assessment Date Thrive assessed 07/22/24 12/29/24 15:29 Telehealth Telehealth Telehealth Platform: Telephone Location of provider rendering services: practice address Location of patient: address on file Patient Identification confirmed using: Name, : Yes Telehealth method: voice only Patient verbally consented to treatment: Yes Patient verbally consented to billing insurance company: Yes Patient informed of any privacy concerns related to visit: Yes Minutes spent on Phone/Video with Pt.: 9 Coding Level of Care Code Tele Est Pt Level 2 (42647) Diagnoses End stage congestive heart failure I50.84 NSTEMI (non-ST elevated myocardial infarction) I21.4 Palliative care encounter Z51.5 ESRD needing dialysis N18.6; Z99.2 Chronic bilateral low back pain with bilateral sciatica M54.42; M54.41; G89.29 Back pain laterality: bilateral Back pain location: low back pain Sciatica laterality: bilateral sciatica Sciatica presence: with sciatica Assessment & Plan Assessment & Plan (1) End stage congestive heart failure: Comment: 12/09/2024 ECHO EF 17% [facility] Code(s): I50.84 - End stage heart failure Category: Medical (2) NSTEMI (non-ST elevated myocardial infarction): Code(s): I21.4 - Non-ST elevation (NSTEMI) myocardial infarction Category: Medical (3) Palliative care encounter: Code(s): Z51.5 - Encounter for palliative care Category: Medical (4) Palliative care encounter: Code(s): Z51.5 - Encounter for palliative care Category: Medical (5) End stage congestive heart failure: Comment: 12/09/2024 ECHO EF 17% [facility] Code(s): I50.84 - End stage heart failure Category: Medical (6) ESRD needing dialysis: Code(s): N18.6 - End stage renal disease; Z99.2 - Dependence on renal dialysis Category: Medical (7) Chronic back pain: Code(s): M54.9 - Dorsalgia, unspecified; G89.29 - Other chronic pain Category: Medical Qualifiers: Back pain laterality: bilateral Back pain location: low back pain Sciatica laterality: bilateral sciatica Sciatica presence: with sciatica Qualified Code(s): M54.42 - Lumbago with sciatica, left side; M54.41 - Lumbago with sciatica, right side; G89.29 - Other chronic pain Plan Pt presented to [facility] ED 12/08/2024 for chest pain x 3 days. Pt rulled in for NSTEMI and underwent PCI of L Main, LAD & Circumflex arterieson 12/10/2024. Pt was subsequently hypotensive and required intubation, placement of swan & Impella, and received pressors. Weaned off pressors and Nemours & Impella removed on 12/12/2024. Midodrine was continued. Course also complicated by DKA and she was treated with insulin drip. She resumed Dialysis with usual / schedule. Seen by Heart Failure team and started on Bisoprolol 2.5mg daily. Poor candidate for further surgical intervention. EF Now 17%. Will need to f/u with HF Team as OP. Cardiac Rehab - Does not plan to f/u with Cardiac rehab. - F/U with Cardiology, Appt 01/01/25 Must continue Insulin. Continue Dialysis Palliative Care -Now in palliative care. Pain control: Patient has 8/10 pain consistently throughout her day. She was being given Dilaudid 2 mg every 4-6 hours in the hospital this was controlling pain. We discussed starting low in bring this up if needed. She start with Dilaudid 2 mg 4 times a day PRN She can continue Tylenol as well She will follow-up 2-3 weeks to reassess pain. Medications: New hydromorphone (Dilaudid) MassPat Verified. Partial Fill upon patient request. 2 mg PO Q6H PRN 112 tabs 0RF pain 28 days G89.4 - Chronic pain syndrome
--- OUTSIDE RECORDS SUMMARY | 2024-12-29 16:00 | XMS_ITS | Clinical Summary ---
Author Organization [facility] Address [address] [place] [address] Care Team Providers Care Talking Books Library Clerk Name Role Phone Unavailable Primary Care Provider Unavailabl e Social History Tobacco Use Types Packs/Day Years Used Date Smoking Tobacco: Never Assessed Sex and Gender Information Value Date Recorded Sex Assigned at Not on file Gender Identity Not on file Sexual Orientation Not on file Plan of Treatment Not on file
--- OUTSIDE RECORDS SUMMARY | 2024-12-29 16:00 | XMS_ITS | Encounter Summary ---
Author Organization [facility] Address [address] [place] [phone] Phone Care Team Providers Care Outdoor Studies Professor Name Role Phone Medina Ren NP Primary Care Provider Saroj Bustillo MD Unavailable [phone] Pcp, Unknown Primary Care Provider Nicholas Diane MD Primary Care Provider Encounter Details Date Type Department Care Team (Late st Contact Info) Description 05/03/2021 Procedure [facility] [address] [place] [address] Social History Tobacco Use Types Packs/Day Years Used Date Smoking Tobacco: Former Smokeless Tobacco: Never Alcohol Use Standard Drinks/Week Comments No 0 (1 standard drink = 0.6 oz pur e alcohol) Comments No Sex and Gender Information Value Date Recorded Sex Assigned at Female 01/18/2018 1:14 PM EDT Legal Sex Female 9:20 PM EDT Gender Identity Female 01/18/2018 1:14 PM EDT Sexual Orientation Queer 01/18/2018 1: 14 PM EDT documented as of this encounter Functional Status * Calculated C-SSRS Risk Score (Lifetime/Recent) Answer Date of Assessment Author No Risk Indicated 05/03/2021 10:16 AM Jacqui Chu, [place] * [place] Suicide Severity Rating Scale (Screener/Recent Self-Report) Question Answer Date of Assessment Author 1. Wish to be (Past 1 Month) No 05/03/2021 10:16 AM Jacqui Zarate, [place] 2. Non-Specific Active Suicidal Thoughts (Past 1 Month) No 05/03/2021 10:16 AM Jacqui Zarate, [place] 6. Suicidal Behavior (Lifetime) No 05/03/2021 10:16 AM Jacqui Zarate, [place] documented as of this encounter Plan of Treatment Upcoming Encounters Date Type Department Care Team (Late st Contact Info) Description 12/30/2024 1:30 AM EDT Home Care Visit [facility] [address] [place] [phone] Catherine Herr RN [address] [place] [phone] 01/02/2025 4:00 AM EDT Home Care Visit [facility] [address] [place] [phone] Catherine Herr RN [address] [place] [phone] 01/08/2025 Home Care Visit [facility] [address] [place] [phone] Catherine Herr RN [address] [place] [phone] 01/15/2025 Home Care Visit [facility] [address] [place] [phone] Catherine Herr RN [address] [place] [phone] 01/22/2025 3:00 AM EDT Home Care Visit [facility] [address] [place] [phone] Catherine Herr RN [address] [place] [phone] 01/29/2025 3:00 AM EDT Home Care Visit [facility] [address] [place], [place] [phone] Catherine Herr, [place] [address] [place] [phone] 02/05/2025 1:30 AM EDT Home Care Visit [facility] [address], [place] [phone] Catherine Herr, [place] [address] [place] [phone] 02/12/2025 1:00 AM EDT Appointment [facility] [address], [place] [phone] Catherine Herr RN [address] [place] [phone] [email or web address] documented as of this encounter Visit Diagnoses Not on filedocumented in this encounter Additional Health Concerns Infection Onset Date Last Indicated Resolved Time CoV-Risk 06/12/2021 06/12/2021 06/22/2021 1:23 AM EST CoV-Risk 06/25/2021 06/25/2021 07/05/2021 1:25 AM EST documented as of this encounter Care Teams Outdoor Studies Professor Relationship Specialty Start Date End Date Medina Ren NP PCP - General Family Medicine 01/30/21 12/02/21 Pcp, Unknown PCP - General 12/03/21 12/16/24 Nicholas Yang MD [address] [place] [id number] PCP - General Family Medicine 12/17/24 Saroj Bustillo MD [address] [address] Sales And Marketing Assistant Nephrology 05/03/21 documented as of this encounter Additional Source Comments The information contained in this document represents components of the legal health record. It is not the complete legal health record.[facility]
--- OUTSIDE RECORDS SUMMARY | 2024-12-29 16:00 | XMS_ITS | Clinical Summary ---
Author Organization [facility] Address [address] [place] [address] Care Team Providers Care Physical Scientist Name Role Phone Elkin Renia ESPERANZA Primary Care Provider [phone] Allergies No known active allergies Medications * [...] place to sleep or slept in a penitentiary (including now)? No 09/03/2022 Comments Unknown Sex [...] - 99 mg/dL 09/05/2022 8:57 AM EDT [facility] Comment:Fasting: <100 mg/dL, Non-Fasting: <200 mg/dL (ADA 2005) Blood Urea Nitrogen (BUN) 66(H) 8 - 21 mg/dL 09/05/2022 8:57 AM EDT [facility] Creatinine 9.8(H) 0.4 - 1.1 mg/dL 09/05/2022 8:57 AM EDT [facility] eGFR 5(L) >59 09/05/2022 8:57 AM T [facility] Comment: CKD-EPI (2020) in mL/min/1.73 sq meters. Reported eGFR is based on the CKD-EPI equation that does not use a race coefficient as of 08/15/2022 Sodium 139 136 - 145 mmol/L 09/05/2022 8:57 AM [facility] Potassium 4.5 3.4 - 5.3 mmol/L [...] Final Res ult HOSPITAL LAB See Below [address] [address] * (ABNORMAL) Hemoglobin A1c with Estimated Average Glucose (09/01/2022 6:06 AM EDT) Hemoglobin A1C 6.5(H) <5.7 % 09/01/2022 8:23 AM T [facility] Comment: A1c% Interpretation 5.7 - 6.0 Increase risk of diabetes 6.1 - 6.4 Higher risk of diabetes > or = 6.5 Consistent with diabetes Diabetes Care, 33(Supp 1):S1-S61, 2009 Estimated Average Glucose 140 mg/dL 09/01/2022 8:23 AM T [facility] Blood specimen (specimen) Blood specimen / Unknown 09/01/2022 6:06 AM EDT 09/01/2022 6:11 AM EDT us Janice Smalls MD LAB BLOOD ORDERABLES Final Resu lt HOSPITAL LAB See Below [place] [address] [place] [address] from Last 3 Months or Most Recently Relevant to Health Maintenance Insurance [facility] MEDICARE OUT OF NETWORK [facility] OUT OF NETWORK Advance Directives * Full Code (Latest Code Status on File) Date Activated Date Inactivated Comments 09/01/2022 4:52 AM Care Teams Physical Scientist Relationship Specialty Start Date End Date Medina Ren NP [address] [place] [address] PCP - General Family Medicine 08/31/22
--- OUTSIDE RECORDS SUMMARY | 2024-12-29 16:00 | XMS_ITS ---
Author Name Ampar[facility], Clinic Address [address] [place] [address] Phone [phone] Organization [facility] e, NA DOCUMENT DISCLAIMER Multiple document versions may exist, please be sure you review the latest version. The information in the [facility] Continuity of Care Document represents a summary [...] October 25, 2024 October 24, 2025 Active Iron Sucrose (Venofer) 1X Week 50 mg Intravenous - push December 04, 2024 December 03, 2025 Active Midodrine HCl (Proamatine) PRN 5 mg Oral December 18, 2024 December 17, 2025 Active Midodrine HCl (Proamatine) PRN hypotension 5 mg Oral October 23, 2024 October 22, 2025 Active Midodrine HCl (Proamatine) PRN 20 mg Oral December 18, 2024 December 17, 2025 Active Midodrine HCl (Proamatine) PRN hypotension 5 mg Oral October 23, 2024 October 22, 2025 Active Midodrine HCl (Proamatine) PRN hypotension 5 mg Oral November 20, 2024 November 19, 2025 Active Vitamin D (Calcitriol) Oral During Dialysis, Every Treatment 0.5 mcg Oral October 23, 2024 October 22, 2025 Active Mircera Once 75 mcg Intravenous - push December 20, 2024 Discontinued Home Medications Medication Instructions Dosage Route Start Date End Date [facility] albuterol sulfate 90 mcg/actuation Inhale using [...] Sign Value Date / Time Blood Pressure-sitting 117/78 mmHg December 27, 2024 12:47 PM Heart Rate 84 beats per minute December 27 12:47 PM Respiratory Rate 18 breaths per minute December 27, 2024 12:47 PM Temperature 97.3 deg. F December 27, 2024 12 :47 PM Weight Vital Sign Value Date / Time Estimated Dry Weight 110 kg December 27 11:59 PM Pre-Dialysis 112.10 kg December 27, 2024 12 :47 PM Post-Dialysis 109.60 kg December 27, 2024 12 :47 PM Other Other Value Date / Time Height 165 cm September 21, 2023 1 2:00 AM Body Mass Index 40.77 kg/m2 December 25, 2024 03 :46 PM [facility] Tuberculosis Testing TST Date Administered TST Date Read TST Result 09/26/2023 09/28/2023 Negative (<5) mm LAB RESULTS Hematology Result Type Result Value Relevant Referen ce Range Interpretation Date Ferritin 477 ng/mL 10 - 291 ng/mL High July 132024 Transferrin Sat. (Calc) 21 % 20 - 55 % - August 01 TIBC (Calc) 196 mcg/dL 185 - 515 mcg/dL - 2024 UIBC/TIBC 155 mcg/dL 155 - 355 mcg/dL - August 01, 2024 Ferritin 752 ng/mL 10 - 291 ng/mL High August 27, 2024 Transferrin Sat. (Calc) 34 % 20 - 55 % - August 27, 2024 TIBC (Calc) 218 mcg/dL 185 - 515 mcg/dL - August 092024 UIBC/TIBC 144 mcg/dL 155 - 355 mcg/dL Low August Ferritin 517 ng/mL 10 - 291 ng/mL High September 24, 2024 WBC (No Diff) 6.10 1000/mcL 4.80 - 10.80 1000/mcL - September 24, 2024 TIBC (Calc) 200 mcg/dL 185 - 515 mcg/dL - September 092024 Transferrin Sat. (Calc) 32 % 20 - 55 % - September 24, 2024 UIBC/TIBC 136 mcg/dL 155 - 355 mcg/dL Low September Hemoglobin x 3 35.4 % 36.0 [...] mcg/dL 30 - 160 mcg/dL - October 30 025 UIBC/TIBC 149 mcg/dL 155 - 355 [...] % 36.0 - 48.0 % Low November Ferritin 483 ng/mL 10 - 291 ng/mL High November 27 025 Hemoglobin x 3 32.4 % 36.0 - [...] % 36.0 - 48.0 % Low December Retic HGB (CHr) 31.3 pg 25.4 - 31.8 pg - December 25, 2024 Hemoglobin x 3 27.9 % 36.0 - 48.0 % Low December HCT 30.7 % 37.0 - 47.0 % Low December 25 RBC 3.18 mill/mcL 4.20 - 5.40 mill/mcL Low December 25, 2024 WBC (No Diff) 7.15 1000/mcL 4.80 - 10.80 1000/mcL - December 25, 2024 RDW 16.4 % 11.5 - 14.5 % High December 25 MCHC 30.3 g/dL 30.0 - 36.0 g/dL - December 25, 2024 MCH 29.2 pg 27.0 - 31.0 pg - December 25 HGB 9.3 g/dL 12.0 - 16.0 g/dL Low December 25, 2024 TIBC (Calc) 221 mcg/dL 185 - 515 mcg/dL - December Transferrin Sat. (Calc) 15 % 20 - 55 % Low December 25, 2024 Iron 34 mcg/dL 30 - 160 mcg/dL - December 25, 2024 UIBC/TIBC 187 mcg/dL 155 - 355 mcg/dL - December 25, 2024 Ferritin 821 ng/mL 10 - 291 ng/mL High December 25 Metabolic/Renal Result Type Result Value Relevant Reference Range Interpre tation Date Hemoglobin A1c 6.6 % 4.8 - 5.9 % High September 24, 2024 BUN, Post 23 mg/dL [...] 3.5 - 5.1 mEq/L - November 04, 2 025 BUN 90 mg/dL 6 - 19 mg/dL High November 13 BUN, Post 24 mg/dL 6 - 19 mg/dL High November 13 URR, Calc 73 % 65 - 80 % - November 13, 2024 Bicarbonate 22 mEq/L 22 - 29 mEq/L - November 27, 025 Potassium 5.9 mEq/L 3.5 - 5.1 mEq/L [...] 6 - 19 mg/dL High December 18 Hemoglobin A1c 6.4 % 4.8 - 5.9 % High December 25, 2024 Bicarbonate 24 mEq/L 22 - 29 mEq/L - December 25, 025 Sodium 138 mEq/L 136 - 145 mEq/L - December 25, 2024 Potassium 4.5 mEq/L 3.5 - 5.1 mEq/L - December 25, 2024 Creatinine, Serum 8.56 mg/dL 0.60 - 1.30 mg/dL High December 25, 2024 HD Adequacy Result Type Result Value [...] Range Interpretation Date Vitamin D 25 Hydroxy 21.0 ng/mL 30.0 - 100.0 ng/mL Low June 25, 2024 PTH-Intact, Plasma 2757 pg/mL 16 - 80 pg/mL High Feb ruary 2024 PTH-Intact, Plasma 2252 pg/mL 16 - 80 pg/mL High Mar ch 2024 PTH-Intact, Plasma 2445 pg/mL 16 - 80 pg/mL High Apr il 2024 Corrected Ca x P Product 89 0 - 54 High October 30, 2024 Calcium, Total 9.1 mg/dL 8.4 - 10.2 mg/dL - October 30, 2024 Phosphorus 9.8 mg/dL 2.6 - 4.5 mg/dL High May 22, 2 025 Ca x P Product 89 0 - 54 High October 30 25 PTH-Intact, Plasma 2521 pg/mL 16 - 80 pg/mL High October 30, 2024 Phosphorus 9.9 mg/dL 2.6 - 4.5 mg/dL High November 27, 2024 Ca x P Product 89 0 - 54 High November 27 025 Calcium, Total 9.0 mg/dL 8.4 - 10.2 mg/dL - November 27, 2024 Corrected Ca x P Product 90 0 - 54 High November 27, 2024 PTH-Intact, Plasma 2642 pg/mL 16 - 80 pg/mL High Nov Calcium, Total 8.4 mg/dL 8.4 - 10.2 mg/dL - December 25, 2024 Alkaline Phosphatase 163 U/L 35 - 104 U/L High 2024 Phosphorus 6.8 mg/dL 2.6 - 4.5 mg/dL High December 25, 2024 Ca x P Product 57 0 - 54 High December 25 025 Corrected Ca x P Product 61 0 - 54 High December 25, 2024 PTH-Intact, Plasma 2140 pg/mL 16 - 80 pg/mL High Dec Liver/Nutrition Result Type Result Value Relevant Reference Range Interpre tation eNPCR 1.31 No Reference Range Provided - [...] - 100 mg/dL High November 27 025 SGPT (ALT) 5 U/L 7 - 52 U/L Low December 25, 2024 Albumin (BCG) 3.3 g/dL 3.5 - 5.2 g/dL Low December Glucose 151 mg/dL 70 - 100 mg/dL High December 25 025 Immunochemistry Result Type Result Value Relevant Reference Range Interpre tation HCV s/co ratio 0.04 0.00 - 0.79 [...] (HBsAg) Negative No Reference Range Provided - December 25, 2024 DIALYSIS PRESCRIPTION Conventional Hemodialysis Data Element Value Order Date/Time December 27, 2024 Frequency 3X Week Treatment Days TueThuSat Dialyzer 160NRe Optiflux Treatment Time (Total Minutes) 240 min Blood Flow Rate (mL/min) 450 mL/min Dialysate Flow Rate Manual 800 Estimated Dry Weight 110 kg Dialysate Concentrate 2.0 K, 2.50 Ca, 1. 0 Mg, 100 Dextrose ([id number]) Sodium (mEq/L) 138 mEq/L Bicarb Machine Setting [...] Dialysate Dialyzer Dialysis Access Meds Admin December 23, 2024 Weight 113.60 kg Weight 111.00 kg 03:00:00 350 2.0 K, 2.50 Ca, 1.0 Mg, 100 Dextrose ([id number]) 160nre Optifl ux Blood Pressure-sitting 123/74 mmHg Blood Pressure-sit ting 112/68 mmHg Heart Rate 88 beats per minute Heart Rate 82 beats per minute Respiratory Rate 18 breaths per minute Respiratory Rate 18 breaths per minute Temperature 97.0 deg. F Temperature 97.1 deg. F December 25, 2024 Weight 113.00 kg Weight 110.00 kg 03:07:00 450 2.0 K, 2.50 Ca, 1.0 Mg, 100 Dextrose ([id number]) 160nre Optiflux Hemodialysis-CV Catheter-Tunneled, Chest, Right Subclavian Cinacalcet (Sensipar); 30mg,Oral Heparin Sodium (Porcine) 1,000 Units/mL Catheter Lock Arterial; 2000units,Arterial Red Port Heparin Sodium (Porcine) 1,000 Units/mL Catheter Lock Venous; 2000units,Venous Blue [place] Heparin Sodium (Porcine) 1,000 Units/mL Systemic; 5000units,Intravenous - push Heparin Sodium (Porcine) 1,000 Units/mL Systemic; 500units,Intravenous - push Iron Sucrose (Venofer); 50mg,Intravenous - push Midodrine HCl (Proamatine); 20mg,Oral Vitamin D (Calcitriol) Oral; 0.5mcg,Oral Blood Pressure-sitting 100/58 mmHg Blood Pressure-sit ting 145/69 mmHg Heart Rate 83 beats per minute Heart Rate 80 beats per minute Respiratory Rate 18 breaths per minute Respiratory Rate 16 breaths per minute Temperature 96.6 deg. F Temperature 96.0 deg. F December 27, 2024 Weight 112.10 kg Weight 109.60 kg 02:58:00 450 2.0 K, 2.50 Ca, 1.0 Mg, 100 Dextrose ([id number]) 160nre Optiflux Hemodialysis-CV Catheter-Tunneled, Chest, Right Subclavian Cinacalcet (Sensipar); 30mg,Oral Heparin Sodium (Porcine) 1,000 Units/mL Catheter Lock Arterial; 2000units,Arterial Red Port Heparin Sodium (Porcine) 1,000 Units/mL Catheter Lock Venous; 2000units,Venous Blue [place] Heparin Sodium (Porcine) 1,000 Units/mL Systemic; 5000units,Intravenous - push Heparin Sodium (Porcine) 1,000 Units/mL Systemic; 500units,Intravenous - push Midodrine HCl (Proamatine); 5mg,Oral Midodrine HCl (Proamatine); 5mg,Oral Midodrine HCl (Proamatine); 20mg,Oral Vitamin D (Calcitriol) Oral; 0.5mcg,Oral Blood Pressure-sitting 137/81 mmHg Blood Pressure-sit ting 117/78 mmHg Heart Rate 75 beats per minute Heart Rate 84 beats per minute Respiratory Rate 18 breaths per minute Respiratory Rate 18 breaths per minute Temperature 97.5 deg. F Temperature 97.3 deg. F
--- OUTSIDE RECORDS SUMMARY | 2024-12-29 16:00 | XMS_ITS | Encounter Summary ---
Author Organization [facility] Address [address] [facility] [address] [place] [address] Phone Care Team Providers Care Botany Teacher Name Role Phone Medina Ren INFORMATION TECHNOLOGY ARCHITECT Primary Care Provider [phone] Encounter Details Date Type Department Care Team ([facility] st Contact Info) Description 08/22/2021 Office Communication [facility] [address] [facility] [address] [place] [phone] Rachelle Lui, RN [address] [place] [address] [place] [phone] Social History Tobacco Use Types Packs/Day Years [...] on filedocumented in this encounter Care Teams Botany Teacher Relationship Specialty Start Date End Date Medina Ren NP [address] [place] [address] [phone] PCP - General Nurse Practitioner 01/03/21 documented as of this encounter
--- OUTSIDE RECORDS SUMMARY | 2024-12-29 16:01 | XMS_ITS | Clinical Summary ---
Author Organization [address] Address [address] [place] [phone] Phone Care Team Providers Care Assistant Front Office Manager Name Role Phone Nicholas Yang MD Primary Care Provider [phone] Allergies Active Allergy Reactions Criticality Noted Date [...] 1 diabetes mellitus with other specified complication ([facility] V24, [facility] V28) USE 4 NEEDLES WITH INSULIN PENS DIRECTED DAILY 100 each 2 5 Active insulin degludec (TRESIBA FlexTouch) 100 unit/mL (3 mL) injection penIndications:T ype 1 diabetes mellitus with other specified complication ([facility] V24, [facility] V28) 20 units daily Subcutaneous 30 mL [...] medical therapy. Acute hypoxic respiratory fa ilure ([facility] V24, [facility] V28) 09/14/2023 Atherosclerotic heart disease [...] 911. NSTEMI (non-ST elevated myoc ardial infarction) ([facility] V24, [facility] V28) 09/14/2023 Overview (03/25/2024): Last Assessment & Plan: With three-vessel coronary artery disease and ischemic cardiomyopathy. I do not think PCI is a good idea. So far, she has no angina symptoms. Unfortunately, she is quite adamant that she will not get any care in [facility]. I will try to refer her to Dr. Almanza in [facility] as long as her insurance allowed her. Will continue high-dose statin and aspirin. Will need to repeat lipid profile. Pulmonary edema 09/14/2023 Encounters Date Type Department Care Team Description 11/06/2024 Telephone [facility] - [address] [place] [address] Dasha Villa [place] Med Refill (See note) 10/30/2024 Telephone Endocrinology - [place] [phone] Perri Loyola MD Labs Only 10/23/2024 Telephone Endocrinology - [place] [address] [place] [phone] Perri Loyola MD 10/22/2024 Telephone Endocrinology - [place] [address] [place], [place] [phone] Perri Loyola MD Medication Problem (Tresiba 200 unit/ ml ) 10/09/2024 Telephone Endocrinology - [place] [phone] Amena Up PA 10/08/2024 Telephone Endocrinology - [place] [address] [place], [place] [phone] Perri Loyola MD PRIOR AUTHORIZATION from Last 3 Months Medical History Medical History Date Comments Volume overload DX:Volume overlo ad Influenza DX:Influenza Hyperglycemia due to diabete s mellitus ([facility] V24, [facility] V28) DX:Hyperglycemia due to earlene betes mellitus ([facility]) Social History Tobacco Use Types [...] Description 02/26/2025 10:40 AM EDT Office Visit [facility] - [address] [facility] [address] [place] [address] Elicia Chan NP [address] [place] [address] Health Maintenance Due Date Last Done Comments Breast Cancer Screening 1981 Diabetes: Annual Foot Exam 1991 Diabetes: Annual Retina Eye Exam 1991 Cervical Cancer Screening: Pap Smear 2002 Diabetes: Annual GFR (Glomerular Filtration Rate) 09/06/2023 09/05/2022, 09/05/2022, 09/04/2022, Additional history exists COVID-19 Vaccine ( season) 2024 10/23/2020, 10/02/2020 HIV Screening 03/20/2024 Hepatitis C Screening 03/20/2024 Hypertension/CHF/CAD Annual BMP Blood Test 03/20/2024 09/05/2022, 09/05/2022, 09/04/2022, Additional history exists Social Influencers of Health Screening 03/20/2024 Cholesterol Screening (Lipid Panel) 04/03/2024 04/03/2019 Depression Screening 06/11/2024 Diabetes: Annual Urine Albumin-Creatinine Ratio (uACR) 06/13/2024 [...] l Result from Last 3 Months Insurance [facility] Member Subscriber Plan / Payer (Ef fective 2022-Present) Name:Phoenix Leach Relation to Subscriber:Self Name:Phoenix Leach Payer ID:[id number] Group ID:[id number] Type:Not on file Address: [address] [place] [phone] Advance Directives Documents on File Type Date Recorded Patient Wait Staff Expl anation Health Care Decision (hx) 06/24/2012 AD TOPHER DIRECTIVE Care Teams Assistant Front Office Manager Relationship Specialty Start Date End Date Nicholas Yang MD [address] [place] [address] Dr Adriana [place] PCP - General 07/31/23
--- OUTSIDE RECORDS SUMMARY | 2024-12-29 16:01 | XMS_ITS | Clinical Summary ---
Author Organization [facility] Address [address] [place] [address] Care Team Providers Care Foreign Food Cook Specialty Name Role Phone Lucy Pop ARABIC TRANSLATOR Primary Care Provider [phone] Source Comments PLEASE NOTE, if this patient [...] Plan of Treatment Not on file Insurance [facility] Care Teams Foreign Food Cook Specialty Relationship Specialty Start Date End Date Lucy Pop FNP [address] [place] [address] PCP - General 08/06/18
== END 2024-12-29 16:58 | disposition home or self-care (01) ==
LOC: HO.HMCFM 15:30
PROVIDERS: PCP Family Medicine; Visit Provider Family Medicine
DX: I50.84 End stage heart failure (principal); N18.6 End stage renal disease; Z51.5 Encounter for palliative care; I25.2 Old myocardial infarction; Z99.2 Dependence on renal dialysis; M54.42 Lumbago with sciatica, left side; M54.41 Lumbago with sciatica, right side; G89.29 Other chronic pain

== ENCOUNTER 2025-01-21 10:28 | Outpatient (AMB) | payer OTHER, SELFPAY ==
--- NOTE | 2025-01-21 10:40 | A.OFFPC_ITS ---
Vital Signs 01/21/25 10:46 Height 5 ft 6 in BMI Reason not done Patient refused/unable BP 94/51 L Blood Pressure Location Rt brachial Position Sitting Respiration 12 Pulse 77 Pulse Source Pulse Oximeter Temp 97.2 F Temp Source Temporal Artery Scan Pulse Oximetry (%) 96 Oxygen Delivery Method Room Air Intake Visit Reasons: f/u chronic conditions Intake Note: Follow up on pain management contract Geology Teacher Required: No Allergies Penicillins Allergy (Intermediate, Verified 01/21/25 10:42) compromises mental health Tobacco use date assessed: 12/29/24 Dental Screening Dental Screen Date: 12/29/24 HPI f/u chronic conditions HPI Details 44 y/o female presents to f/u chronic pa in and pain control. Pt w/ recent STEMI & EF 17%. Considering Hospice but would have to stop dialysis & is not ready to do so. Chronic pain and managing with weekly prescriptions of dilaudid to get her to today's visit. Had had Pain contract with her prior PCP, Medina Ren. Needs reevaluation & new pain contract. Will need PA to continue current medication & change to 3- day scripts. Had requested patient's notes from her real estate consultant and was recent echocardiogram. I do not have these notes today. Awaiting notes from real estate consultant regarding plan next echocardiogram. Environmental Lead Dr Graves. Dharmesh Frank Next Feb 25. Chronic pain - L shoulder blade pain, joint pain, abd. pain. Uses tylenol for pain. HPI Comments History of Present Illness Details Documentation assistance for Nicholas Yang MD, was provided by Aung Amezquita, Fish [place]ter on 01/21/2025 at 11:25 AM EST. I, Dr. Yang, have read, observed, and verified documentation. 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 Autism Coronary artery disease Uncontrolled diabetes mellitus with hyperglycemia, with long-term current use of insulin Adrenal incidentaloma ESRD needing dialysis NSTEMI (non-ST elevated myocardial infarction) MDD (major depressive disorder) Hyperlipidemia due to type 1 diabetes mellitus Diabetic retinopathy Cauda equina syndrome Anasarca associated with disorder of kidney DM gastroparesis Abnormal abdominal MRI Hearing loss in right ear Hearing loss in left ear RSV infection Hypertensive urgency Diabetes mellitus type 1, uncontrolled Gastroparesis Moderate persistent asthma, uncomplicated Chronic GERD Cyclic vomiting syndrome Surgical History AVF (arteriovenous fistula) Previous back surgery Family History Father Diabetes Paternal Grandfather Diabetes Mother No known problems Social History (Updated 12/29/24 @ 15:28 by Cassidy Gardiner MA) Housing: Apartment Alcohol intake: never Patient Tobacco Use Status: Former Tobacco user e-Cigarette/Vaping Use: Never Used Second Hand Smoke Exposure: No Substance Use Type: Marijuana Advance Directives Date on File: 08/31/22 service: No Current occupational status: disabled Current occupational exposures/hazards: No Cognitive needs: No Hearing needs: No Vision needs: No Questionnaire Thrive Questionnaire Date Thrive assessed: 07/22/24 I am a: Patient What is your living situation today?: I have a steady place to live Within the past 12 months, did the food you bought not last and you didn't have the money to get more?: Never true Within the past 12 months, did you worry whether your food would run out before you got money to buy more?: Never true Do you have trouble paying for medicines?: No Do you have trouble getting transportation to medical appointments?: No Do you have trouble paying your heating and electricity bill?: No Do you have trouble taking care of your child, family member or friend?: No Do you have trouble with day-to-day activities such as bathing, preparing meals, shopping, managing finances, etc.?: No Are you currently unemployed and looking for a job?: No Are you interested in more education?: No Please select the resources that you would like help with: None Currently or been in a relationship where the following occur: No concerns reported THRIVE Score: 0 TERRY-7 AMB Questionnaire TERRY-7 Date TERRY - 7 assessed: 12/23/24 Source: Developed by Drs. Channing Funes, Tenisha Foley, Mohan Fagan and colleagues, with an educational francis from [employer] Review of Systems Const Denies chills, Denies fatigue, Denies fever(s), Denies headache(s) and Denies weakness ENT Denies dizziness and Denies headache(s) Card Denies dyspnea Resp Denies cough, Denies dyspnea, Denies wheezing and Denies other (shortness of breath) Musc Denies numbness and Denies tingling Neuro Denies dizziness, Denies headache(s), Denies numbness, Denies tingling and Denies weakness Psych Denies anxiety and Denies depression Endo Denies fatigue Aller/Immun Denies wheezing Physical exam (Primary Care) Vital Signs: Last Vital Signs Temp 97.2 F 01/21/25 10:46 Pulse 77 01/21/25 10:46 Resp 12 01/21/25 10:46 BP 94/51 L 01/21/25 10:46 Pulse Ox 96 01/21/25 10:46 Oxygen Delivery Method Room Air 01/21/25 10:46 Tobacco/Smoking Status: Tobacco use Status Tobacco use date assessed 12/29/24 01/21/25 10:48 Patient Tobacco Use Status Former Tobacco user 01/21/25 10:48 e-Cigarette/Vaping Use Never Used 01/21/25 10:48 Thrive Assessment: Date of Thrive Assessment Date Thrive assessed 07/22/24 01/21/25 10:48 Currently or been in a relationship where the following occur: No concerns reported Const General: well developed; No acute distress Nutritional Appearance: well nourished Orientation/consciousness: patient oriented x3 HENMT Head: Yes normocephalic and Yes atraumatic Eyes General: appearance normal, both eyes and all related structures Pupils: Equal, round and reactive pupils present EOM: EOMs intact bilaterally Resp Effort & Inspection: normal respiratory effort Neuro General: patient oriented x3 and gait normal Cranial nerves: Yes Equal, round and reactive pupils present Psych Affect: normal affect Coding Level of Care Code Est Pt Level 4 (31362) Diagnoses Chronic bilateral low back pain with bilateral sciatica M54.42; M54.41; G89.29 Back pain laterality: bilateral Back pain location: low back pain Sciatica laterality: bilateral sciatica Sciatica presence: with sciatica End stage congestive heart failure I50.84 NSTEMI (non-ST elevated myocardial infarction) I21.4 Assessment & Plan Assessment & Plan (1) Chronic back pain: Code(s): M54.9 - Dorsalgia, unspecified; G89.29 - Other chronic pain Category: Medical Qualifiers: Back pain laterality: bilateral Back pain location: low back pain Sciatica laterality: bilateral sciatica Sciatica presence: with sciatica Qualified Code(s): M54.42 - Lumbago with sciatica, left side; M54.41 - Lumbago with sciatica, right side; G89.29 - Other chronic pain (2) End stage congestive heart failure: Comment: 12/09/2024 ECHO EF 17% [facility] Code(s): I50.84 - End stage heart failure Category: Medical (3) NSTEMI (non-ST elevated myocardial infarction): Code(s): I21.4 - Non-ST elevation (NSTEMI) myocardial infarction Category: Medical Plan Pt w/ recent STEMI & EF 17%. Considering Hospice but woul dhave to stop dialysis & is not ready to do so. Chronic pain and managing with weekly prescriptions of dilaudid to get her to today's visit. Had had Pain contract with her prior PCP, Medina Quispe. Needs reevaluation & new pain contract. Will need PA to continue current medication & change to 3- day scripts. Had requested patient's notes from her real estate consultant and was recent echocardiogram. I do not have these notes today. Awaiting notes from real estate consultant regarding plan next echocardiogram. Environmental Lead Dr Graves. Dharmesh Frank Next Feb 25. On O2 via [facility]. Hospice nurse will reevaluate weekly. Catherine from [facility]. Pain primarily at L scapula, Chest pain, B/L Shoulders and arms. Not currently on hospice but essentially palliative treatment. Evaluated weekly by hospice nurse. Dilaudid at current dose effective. Tylenol Also on [facility] Pain contract renewed today. Drug screen via blood, GCMS. Patient does not make urine. Will get prior authorization to allow for monthly scripts for her pain medication Will refer her to pain management to evaluate for other modalities of pain control. Discussed risks and benefits of Dilaudid. Discussed that she is on quite high doses which can alter respiratory drive and cause other adverse effects. Patient understands. Discussed that we will re-evaluate goals as we get more information regarding her prognosis. Orders: Orders Comprehensive Met. Panel Today G89.29 - Other chronic pain, M54.41 - Lumbago with sciatica, right side, M54.42 - Lumbago with sciatica, left side Other Ref Test - [facility] Today G89.29 - Other chronic pain, M54.41 - Lumbago with sciatica, right side, M54.42 - Lumbago with sciatica, left side Referrals Pain Management Referral G89.29 - Other chronic pain, M54.41 - Lumbago with sciatica, right side, M54.42 - Lumbago with sciatica, left side Medications: Changed From hydromorphone (Dilaudid) MassPat Verified. Partial Fill upon patient request. 2 mg PO Q6H 7 days PRN 28 tabs 0RF pain G89.4 - Chronic pain syndrome To hydromorphone MassPat Verified. Partial Fill upon patient request. End-Stage CHF; Chronic back pain Palliative Treatment. 4 mg PO Q6H PRN 112 tabs 0RF pain 28 days G89.4 - Chronic pain syndrome
[2025-01-21 10:46] VITALS: BP 94/51; PULSE 77; RESP 12; TEMP 36.2; O2SAT 96
--- OUTSIDE RECORDS SUMMARY | 2025-01-21 11:16 | XMS_ITS | Clinical Summary ---
Author Organization [facility] Address [address] [place] [address] Care Team Providers Care Driver'S Education Instructor Name Role Phone Elkin Renia ESPERANZA Primary Care Provider [phone] Allergies No known active allergies Medications * [...] place to sleep or slept in a intermediate (including now)? No 09/03/2022 Comments Unknown Sex [...] 19+ 3-dose series) 2000 Pneumococcal Vaccine: Pediat andrew (0-5 Years) and At-Risk Patients (6 to 49 Years) (1 of 2 - PCV) 2000 Pap Smear (Ages 21-65) 2002 HPV Vaccines (1 - 3-dose SCD M series) 2008 Mammogram 2021 Hemoglobin A1C 03/04/2023 09/01/2022 Creatinine with GFR 09/06/2023 09/05/2022, 09/04/2022, 09/03/2022, Additional history exists COVID-19 Vaccine (1 - 2023-2 5 season) 2024 Influenza Vaccine 01/09/2025 06/05/2021, 07/23/2018 Procedures Procedure Name Priority Date/Time Associated Diagnosis Comments BASIC METABOLIC PANEL Routine 09/05/2022 7:48 AM EDT HEMOGLOBIN A1C WITH ESTIMATED AVERAGE GLUCOSE STAT 09/01/2022 6:06 AM EDT from Last 3 Months or Most Recently Relevant to Health Maintenance Results * (ABNORMAL) BASIC METABOLIC PANEL (09/05/2022 7:48 AM EDT) Glucose 150(H) 65 - 99 mg/dL 09/05/2022 8:57 AM EDT [facility] Comment:Fasting: <100 mg/dL, Non-Fasting: <200 mg/dL (ADA 2005) Blood Urea Nitrogen (BUN) 66(H) 8 - 21 mg/dL 09/05/2022 8:57 AM EDT [facility] Creatinine 9.8(H) 0.4 - 1.1 mg/dL 09/05/2022 8:57 AM EDT [facility] eGFR 5(L) >59 09/05/2022 8:57 AM T [facility] Comment: CKD-EPI (2020) in mL/min/1.73 sq meters. Reported eGFR is based on the CKD-EPI equation that does not use a race coefficient as of 08/15/2022 Sodium 139 136 - 145 mmol/L 09/05/2022 8:57 AM [facility] Potassium 4.5 3.4 - 5.3 mmol/L 09/05/2022 8:57 AM [facility] Chloride 98 98 - 107 mmol/L 09/05/2022 8:57 AM [facility] CO2 20(L) 22 - 33 mmol/L 09/05/2022 8:57 AM [facility] Anion Gap 21(H) 7 - 17 09/05/2022 8:57 AM [facility] Calcium 9.4 8.7 - 10.5 mg/dL 09/05/2022 8:57 AM [facility] BUN/Creatinine Ratio 7(L) 10.0 - 25.0 Ratio 09/05/2022 8:57 AM [facility] Blood specimen (specimen) (Plasma/Serum) 09/05/2022 7:48 AM EDT 09/05/2022 8:28 AM EDT september Salena DO LAB BLOOD ORDERABLES Final Res ult HOSPITAL LAB See Below [address] [address] * (ABNORMAL) Hemoglobin A1c with Estimated Average Glucose (09/01/2022 6:06 AM EDT) Hemoglobin A1C 6.5(H) <5.7 % 09/01/2022 8:23 AM T [facility] Comment: A1c% Interpretation 5.7 - 6.0 Increase risk of diabetes 6.1 - 6.4 Higher risk of diabetes > or = 6.5 Consistent with diabetes Diabetes Care, 33(Supp 1):S1-S61, 2009 Estimated Average Glucose 140 mg/dL 09/01/2022 8:23 AM T [facility] Blood specimen (specimen) Blood specimen / Unknown 09/01/2022 6:06 AM EDT 09/01/2022 6:11 AM EDT us Janice Smalls MD LAB BLOOD ORDERABLES Final Resu lt HOSPITAL LAB See Below [place] [address] [place] [address] from Last 3 Months or Most Recently Relevant to Health Maintenance Insurance [facility] MEDICARE OUT OF NETWORK [facility] MEDICARE OUT OF NETWORK Advance Directives * Full Code (Latest Code Status on File) Date Activated Date Inactivated Comments 09/01/2022 4:52 AM Care Teams Driver'S Education Instructor Relationship Specialty Start Date End Date Medina Ren NP [address] [place] [address] PCP - General Family Medicine 08/31/22
--- OUTSIDE RECORDS SUMMARY | 2025-01-21 11:16 | XMS_ITS | Clinical Summary ---
Author Organization [address] Address [address] [place] [phone] Phone Care Team Providers Care Document Control Assistant Name Role Phone Nicholas Yang MD Primary [...] 11 08/28/19 25 Active insulin degludec (TRESIBA FlexTouch) 100 unit/mL (3 mL) injection penIndications: Type 1 diabetes mellitus with other specified complication (CMS/HCC V24, CMS/HCC V28) 20 units daily Subcutaneous 30 mL 1 10/27/19 25 Active ezetimibe (ZETIA) 10 mg tablet Take 1 tablet (10 mg total) by mouth 1 (one) time each day. 60 tablet 2 11/07/19 25 Active Esperanza 2nd Gen Pen Needle 32 gauge x 5/32 needleIndicatio ns:Type 1 diabetes mellitus with other specified complication (CMS/HCC V24, CMS/HCC V28) USE 4 NEEDLES WITH INSULIN PENS DIRECTED DAILY 100 each 2 01/09/20 25 Active BD Esperanza 2nd Gen Pen Needle 32 gauge x 5/32 needleIndicatio ns:Type 1 diabetes mellitus with other specified complication (CMS/HCC V24, CMS/HCC V28) USE 4 NEEDLES WITH INSULIN PENS DIRECTED DAILY 100 each 2 10/14/19 25 2024 Discontinued Active Problems Problem Noted Date Diagnosed [...] medical therapy. Acute hypoxic respiratory fa ilure ([facility] V24, [facility] V28) 09/14/2023 Atherosclerotic heart disease [...] 911. NSTEMI (non-ST elevated myoc ardial infarction) ([facility] [place]24, [facility] V28) 09/14/2023 Overview (03/25/2024): Last Assessment & Plan: With three-vessel coronary artery disease and ischemic cardiomyopathy. I do not think PCI is a good idea. So far, she has no angina symptoms. Unfortunately, she is quite adamant that she will not get any care in [facility]. I will try to refer her to Dr. Almanza in [facility] as long as her insurance allowed her. Will continue high-dose statin and aspirin. Will need to repeat lipid profile. Pulmonary edema 09/14/2023 Encounters Date Type Department Care Team Description 11/06/2024 Telephone [facility] [address] [place] [address] Dasha Villa MA Med Refill (See note) 10/30/2024 Telephone Endocrinology - [place] [address] [place] [address] Perri Loyola MD Labs Only 10/23/2024 Telephone Endocrinology - [place] [address] [place] [address] Perri Loyola MD 10/22/2024 Telephone Endocrinology - [place] [address] [place] [address] Perri Loyola MD Medication Problem (Tresiba 200 unit/ ml ) from Last 3 Months Medical History Medical History Date Comments Volume overload DX:Volume overlo ad Influenza DX:Influenza Hyperglycemia due to diabete s mellitus ([facility] V24, [facility] V28) DX:Hyperglycemia due to earlene betes mellitus ([facility]) Social History Tobacco Use Types [...] Description 02/26/2025 10:40 AM EDT Office Visit [facility] [address] [place] [address] Elicia Chan, ESPERANZA [address] [place] [phone] Health Maintenance Due Date Last Done Comments [...] l Result from Last 3 Months Insurance [facility] Member Subscriber Plan / Payer (Ef fective 2022-Present) Name:Phoenix Leach Relation to Subscriber:Self Name:Phoenix Leach Payer ID:[id number] Group ID:[id number] Type:Not on file Address: [place] [address] [address] [phone] Advance Directives Documents on File Type Date Recorded Patient Retort Setter Expl anation Health Care Decision (hx) 06/24/2012 AD TOPHER DIRECTIVE Care Teams Document Control Assistant Relationship Specialty Start Date End Date Nicholas Yang MD [address] [place] [address] Dr Adriana [place] PCP - General 07/31/23
--- OUTSIDE RECORDS SUMMARY | 2025-01-21 11:16 | XMS_ITS | Encounter Summary ---
Author Organization [facility] Address [address] [facility] [address] [place] [address] Phone Care Team Providers Care Senior Controls Analyst Name Role Phone Medina Ren NP Primary Care Provider Saroj Bustillo MD Unavailable [phone] Pcp, Unknown Primary Care Provider Nicholas Diane MD Primary Care Provider Encounter Details Date Type Department Care Team (Late st Contact Info) Description 05/03/2021 Procedure Pass [facility] [address] [place] [address] Social History Tobacco Use Types Packs/Day Years [...] No Risk Indicated 05/03/2021 10:16 AM Jacqui Chu RN * [place] Suicide Severity Rating Scale (Screener/Recent Self-Report) Question [...] Care Team (Late st Contact Info) Description 01/22/2025 3:00 AM EDT Home Care Visit [facility] [address] [place] [phone] Catherine Herr RN [address] [place] [phone] [email or web address] 01/29/2025 3:00 AM EDT Home Care Visit [facility] [address] [place] [phone] Catherine Herr RN [address] [place] [phone] [email or web address] 02/05/2025 1:30 AM EDT Home Care Visit [facility] [address] [place] [phone] Catherine Herr RN [address] [place] [phone] [email or web address] 02/12/2025 1:00 AM EDT Appointment [facility] [address] [place] [phone] Catherine Herr RN [address] [place] [phone] [email or web address] documented as of this encounter Visit Diagnoses Not on filedocumented in this encounter Additional Health Concerns Infection Onset Date Last Indicated Resolved Time CoV-Risk 06/12/2021 06/12/2021 06/22/2021 1:23 AM EST CoV-Risk 06/25/2021 06/25/2021 07/05/2021 1:25 AM EST documented as of this encounter Care Teams Senior Controls Analyst Relationship Specialty Start Date End Date Medina Ren NP PCP - General Family Medicine 01/30/21 12/02/21 Pcp, Unknown PCP - General 12/03/21 12/16/24 Nicholas Yang MD [address] [place] [address] PCP - General Family Medicine 12/17/24 Sar[facility]ustillo [facility] [address] [address] [email or web address] Lift Technician Nephrology 05/03/21 documented as of this encounter Additional Source Comments The information contained in this document represents components of the legal health record. It is not the complete legal health record.[facility]
--- OUTSIDE RECORDS SUMMARY | 2025-01-21 11:16 | XMS_ITS | Encounter Summary ---
Author Organization [facility] Address [address] [facility] [address] [place] [address] Phone Care Team Providers Care Refractory Repairer Name Role Phone Medina Ren PSYCHOPAEDIC NURSE Primary Care Provider [phone] Encounter Details Date Type Department Care Team ([facility] st Contact Info) Description 08/22/2021 Office Communication [facility] [address] [facility] [address] [place] [phone] Rachelle Lui, RN [address] [facility] [place] [address] [place] [phone] Social History Tobacco Use Types Packs/Day Years [...] on filedocumented in this encounter Care Teams Refractory Repairer Relationship Specialty Start Date End Date Medina Ren NP [address] [place] [phone] PCP - General Nurse Practitioner 01/03/21 documented as of this encounter
--- OUTSIDE RECORDS SUMMARY | 2025-01-21 11:16 | XMS_ITS | Clinical Summary ---
Author Organization [facility] Address [address] [place] [address] Care Team Providers Care Instructional Coordinator Name Role Phone Unavailable Primary Care Provider Unavailabl e Social History Tobacco Use Types Packs/Day Years Used Date Smoking Tobacco: Never Assessed Sex and Gender Information Value Date Recorded Sex Assigned at Not on file Gender Identity Not on file Sexual Orientation Not on file Plan of Treatment Not on file
--- OUTSIDE RECORDS SUMMARY | 2025-01-21 11:16 | XMS_ITS | Clinical Summary ---
Author Organization [facility] Address [address] [place] [address] Care Team Providers Care Services Delivery Driver Name Role Phone Lucy Pop PRINT COLOR OPERATOR Primary Care Provider [phone] Source Comments PLEASE NOTE, if this patient [...] Plan of Treatment Not on file Insurance [facility] [place] MEDICAID DENTAL [facility] Care Teams Services Delivery Driver Relationship Specialty Start Date End Date Lucy Pop FNP [address] [place] [address] PCP - General 08/06/18
== END 2025-01-21 11:42 | disposition home or self-care (01) ==
LOC: HO.HMCFM 10:29
PROVIDERS: PCP Family Medicine; Visit Provider Family Medicine
DX: M54.42 Lumbago with sciatica, left side (principal); M54.41 Lumbago with sciatica, right side; I50.84 End stage heart failure; I25.2 Old myocardial infarction; G89.29 Other chronic pain

== ENCOUNTER → 2025-01-21 10:28 | Outpatient (BNVA) | payer OTHER, SELFPAY | PROVIDERS: PCP Family Medicine; Visit Provider Family Medicine | DX: M54.42 Lumbago with sciatica, left side (principal); G89.29 Other chronic pain; M54.41 Lumbago with sciatica, right side; I21.4 Non-ST elevation (NSTEMI) myocardial infarction; I50.84 End stage heart failure | CPT/HCPCS: 99212 ==

== ENCOUNTER → 2025-01-23 23:59 | Outpatient (BNV) | payer OTHER, SELFPAY | PROVIDERS: PCP Family Medicine; Visit Provider Family Medicine | DX: I25.5 Ischemic cardiomyopathy (principal); I50.20 Unspecified systolic (congestive) heart failure | CPT/HCPCS: G0180 ==

== ENCOUNTER → 2025-02-09 23:59 | Outpatient (BNV) | payer OTHER, SELFPAY | PROVIDERS: PCP Family Medicine; Visit Provider Internal Medicine Nephrology | DX: N18.6 End stage renal disease (principal) | CPT/HCPCS: 90960 ==

== ENCOUNTER 2025-02-10 11:18 | Outpatient (REF) | payer OTHER, SELFPAY ==
[2025-02-10 12:53] LABS: Alanine Aminotransferase < 6 U/L (0-31); Albumin Level 3.4 g/dL (3.5-5.0); Alkaline Phosphatase 175 U/L (39-117); Anion Gap 22 (12-20); Aspartate Amino Transferase 18 U/L (5-31); Blood Urea Nitrogen 45 mg/dL (9-16); Calcium 8.7 mg/dL (8.4-10.2); Carbon Dioxide 24 mmol/L (22-29); Chloride 99 mmol/L (96-108); Potassium 4.9 mmol/L (3.3-5.1); Sodium 140 mmol/L (135-145); Total Protein 6.6 g/dL (6.5-8.0)
--- OUTSIDE RECORDS SUMMARY | 2025-02-10 12:53 | XMS_ITS | Encounter Summary ---
Author Organization [facility] Address [address] [place] [address] Phone Care Team Providers Care Life Sciences Director Name Role Phone Saroj Bustillo MD Unavailable [phone] Nicholas Yang MD Primary Care Provider Encounter Details Date Type Department Care Team (Late st Contact Info) Description 01/05/2025 Procedure [facility] - [facility] [address] [place] [address] Social History Tobacco Use Types Packs/Day Years Used Date Smoking Tobacco: Former Smokeless Tobacco: Never Alcohol Use Standard Drinks/Week Comments No 0 (1 standard drink = 0.6 oz pur e alcohol) Home Health Assessment: Transportation Answer Date Recorded Lack of Transportation (Medical) No 12/19/2024 Lack of Transportation (Non-Medical) No 12/19/2024 Patient Unable or Declines to Respond No 12/19/2024 Education Answer Date Recorded Are you interested in more education? Not on jcarlos e 10/06/2022 Are you concerned about learning? Not on file 10/06/2022 No 10/06/2022 No 10/06/2022 Food Answer Date Recorded Within the past 6 months we worried whether our food would run out before we got money to buy more. Never True 12/24/2024 Within the past 6 months the food we bought just didn't last and we didn't have enough money to get more. Never True Residential Stability Answer Date Recor ded What is your housing situation today? I have mary steven 12/24/2024 How many times have you move d in the past 12 months? Zero (I did not move) 12/24/2024 Paying for Meds Answer Date Recorded Do you have trouble paying for medicines? No 12/24/2024 Paying Utility Bills Answer Date Record ed Do you have trouble paying your heating or elect ricity bill? No 12/24/2024 Transportation Answer Date Recorded Has the lack of transportati on kept you from medical appointments or from getting medications? No 12/24/2024 Digital Access Answer Date Recorded No 12/24/2024 Yes 12/24/2024 Do you have reliable internet access at home? Ye s 12/24/2024 Do you have a device (e.g., phone, tablet, computer) with a working camera? Yes 12/24/2024 Intimate Partner Violence Answer Date R ecorded Are you denied basic needs s uch as food, clothing, or medical care? No 01/05/2025 In the past 12 months have y ou been in a relationship with a person who hurts, threatens, or tries to control you? No 01/05/2025 Are you denied basic needs s uch as food, clothing, or medical care? No 01/05/2025 In the past 12 months have y ou been in a relationship with a person who hurts, threatens, or tries to control you? No 01/05/2025 Comments No Sex and Gender Information Value Date Recorded Sex Assigned at Female 01/18/2018 1:14 PM EDT Legal Sex Female 9:20 PM EDT Gender Identity Female 01/18/2018 1:14 PM EDT Sexual Orientation Queer 01/18/2018 1: 14 PM EDT documented as of this encounter Functional Status * Calculated C-SSRS Risk Score (Lifetime/Recent) Answer Date of Assessment Author No Risk Indicated 01/05/2025 5:25 PM EDT Myrtle Gómez RN * [place] Suicide Severity Rating Scale (Screener/Recent Self-Report) Question Answer Date of Assessment Author 1. Wish to be (Past 1 Month) No 025 5:25 PM EDT Myrtle Gómez, [place] 2. Non-Specific Active Suici bennie Thoughts (Past 1 Month) No 01/05/2025 5:25 PM EDT Myrtle Gómez RN 6. Suicidal Behavior (Lifetime) No 5:25 PM EDT Myrtle Gómez RN documented as of this encounter Plan of Treatment Upcoming Encounters Date Type Department Care Team (Late st Contact Info) Description 02/12/2025 1:00 AM EDT Appointment [facility] [address] [place] [phone] Catherine Herr RN [address] [place] [address] [email or web address] documented as of this encounter Visit Diagnoses Not on filedocumented in this encounter Care Teams Life Sciences Director Relationship Specialty Start Date End Date Nicholas Yang MD [address] [place] [id number] PCP - General Family Medicine 12/17/24 Saroj Bustillo MD [address] [address] [email or web address] [employer] Nephrology 05/03/21 documented as of this encounter Additional Source Comments The information contained in this document represents components of the legal health record. It is not the complete legal health record.[facility]
--- OUTSIDE RECORDS SUMMARY | 2025-02-10 12:53 | XMS_ITS | Clinical Summary ---
Author Organization [facility] Address [address] [place] [address] Care Team Providers Care Metal Work Duct Installer Name Role Phone Lucy Pop RESTAURANT CREW PERSON Primary Care Provider [phone] Source Comments PLEASE NOTE, if this patient [...] Plan of Treatment Not on file Insurance [facility] OR MEDICAID DENTAL [employer] Care Teams Metal Work Duct Installer Relationship Specialty Start Date End Date Lucy Pop FNP [address] [place] [address] PCP - General 08/06/18
--- OUTSIDE RECORDS SUMMARY | 2025-02-10 12:53 | XMS_ITS | Encounter Summary ---
Author Organization [facility] Address [address] [place] [address] Phone Care Team Providers Care Tile Mechanic Helper Name Role Phone Medina Ren CONSTRUCTION HELPER Primary Care Provider [phone] Reason for Visit * Reason Comments Med Refill Encounter Details Date Type Department Care Team (Late st Contact Info) Description 03/05/2021 Refill [facility] [address] [place] [address] Jerry Montenegro MD Social History [...] on filedocumented in this encounter Care Teams Tile Mechanic Helper Relationship Specialty Start Date End Date Medina Ren NP [address] [place] [phone] PCP - General Nurse Practitioner 01/03/21 documented as of this encounter
--- OUTSIDE RECORDS SUMMARY | 2025-02-10 12:53 | XMS_ITS | Encounter Summary ---
Author Organization [facility] Address [address] [facility] [address] [place] [address] Phone Care Team Providers Care Content Creation Manager Name Role Phone Medina Ren SPECIAL DIET COOK Primary Care Provider [phone] Encounter Details Date Type Department Care Team ([facility] st Contact Info) Description 01/02/2022 Office Communication [facility] [address] [facility] [address] [place] [phone] Jihan Wilburn, [place] [address] [place] [phone] Social History Tobacco Use Types Packs/Day Years [...] on filedocumented in this encounter Care Teams Content Creation Manager Relationship Specialty Start Date End Date Medina Ren NP [address] [place] [phone] PCP - General Nurse Practitioner 01/03/21 documented as of this encounter
--- OUTSIDE RECORDS SUMMARY | 2025-02-10 12:53 | XMS_ITS | Encounter Summary ---
Author Organization [facility] Address [address] [facility] [address] [place] [address] Phone Care Team Providers Care Lockstitch Waistband Setter Name Role Phone Medina Ren PRINCIPAL BIOINFORMATICS SPECIALIST Primary Care Provider [phone] Encounter Details Date Type Department Care Team ([facility] st Contact Info) Description 08/22/2021 Office Communication [facility] [address] [facility] [address] [place] [phone] Rachelle Lui, RN [address] [place] [phone] Social History Tobacco Use Types Packs/Day Years [...] on filedocumented in this encounter Care Teams Lockstitch Waistband Setter Relationship Specialty Start Date End Date Medina Ren NP [address] [place] [phone] PCP - General Nurse Practitioner 01/03/21 documented as of this encounter
--- OUTSIDE RECORDS SUMMARY | 2025-02-10 12:53 | XMS_ITS | Clinical Summary ---
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 Active clonazePAM (KLONOPIN) 0.5 MG disintegrating tablet Take 0.5 mg by mouth 4 (four) times a day. 025 Active insulin aspart U-100 (NOVOLOG) 100 unit/mL injection vialIndications:5 -17 units per sliding scale Inject under the skin 3 (three) times a day before meals. Indications: 5-17 units per sliding scale Active montelukast (SINGULAIR) 10 mg tablet Take 10 mg by mouth nightly. Active atorvastatin (LIPITOR) 20 MG tablet Take 80 mg by mouth daily. 025 Active insulin glargine (LANTUS) 100 unit/mL injection vial Inject 30 Units under the skin 2 (two) times a day. 0 018 Active Additional Information Patient taking differently: 20 UnitsSubcutaneous 2 times daily, Reported on 12/22/2024 traZODone (DESYREL) 150 MG tablet Take 300 mg by mouth nightly at bedtime. 021 Active midodrine (PROAMATINE) 5 MG tablet Take 10 mg by mouth 3 (three) times a day. Active aspirin 81 mg chewable tablet Take 81 mg by mouth daily. Active calcitriol (ROCALTROL) 0.25 MCG capsule Take 0.25 mcg by mouth every other day. //sa Active cholecalciferol (VITAMIN D3) 2,000 unit tablet Take 2,000 Units by mouth daily. Active VELPHORO 500 mg Chew Take 2 tablets by mouth 3 (three) times a day. 024 2025 Active ticagrelor (BRILINTA) 90 mg Tab Take 90 mg by mouth 2 (two) times a day. Acti ve bisoprolol (ZEBETA) 5 MG tablet Take 2.5 mg by mouth daily. Active ezetimibe (ZETIA) 10 mg tablet Take 10 mg by mouth daily. 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 Unfortunately she now has severe CAD and presented with NSTEMI at [facility] 12/10 and thought not to be a surgical candidate received high risk PCI with stenting to the LAD left main and left circumflex complicated by hypotension and DKA Postprocedure echo revealed EF of 17% She was advised by the cardiology team that her heart is a bag of wet noodles and there are no further therapies they can offer her, she is requesting second opinion which seems to be quite a reasonable request. She has been unsure of major surgical intervention in the past and it seems likely if there is anything further it will likely be surgery which she now seems to be interested in. She is certainly interested in life prolonging interventions and continued care. Pericardial effusion 12/22/2024 Assessment & Plan (12/23/2024 1:21 AM EDT): Small to moderate effusion noted on CXR and ECHO at bedside In setting of recent cardiac procedure with complex PCI including use of Impella and leading to need for pressors etc. Will get echo in the morning to evaluate effusion and EF She had very recent stenting 12/10 and is on Brilinta and aspirin and thus is not a great candidate for cardiac interventions if not absolutely indicated. She is clinically stable at this time without signs of tamponade we will monitor overnight Volume overload 06/25/2021 Assessment & Plan (12/23/2024 1:21 AM EDT): Patient is clinically volume overloaded however there is some concern between the renal and cardiac team in regards to maintain volume status At this point she is describing episodes of severe nocturnal dyspnea and orthopnea which are making it difficult for her to sleep and running her quality of life Will have both renal and cardiac consult in regards to optimizing volume status such that she is able to breathe sleep and move about her apartment without syncope or orthopnea Assessment & Plan (06/25/2021 8:10 PM EST): Secondary to nonadherence with outpatient dialysis. Emergency department discussed the case with nephrology who suggested that because she still makes urine we could give her 160 mg IV Lasix tonight and if she fails to improve we could dialyze her tomorrow. Patient was not happy with this plan. She wants to be dialyzed NOW or at least wants a guarantee that she will be dialyzed. She is electing to leave the emergency department AGAINST MEDICAL ADVICE. Hyperphosphatemia 06/25/2021 Assessment & Plan (12/23/2024 1:21 AM EDT): continue her renal phosphate binders we do not stock the medication she is currently using as an outpatient thus we will give her what we have Assessment & Plan (06/25/2021 8:11 PM EST): Due to nonadherence with dialysis. Gastroparesis 05/04/2021 Assessment & Plan (05/04/2021 4:18 PM EST): - does not have evidence of ileus or obstruction - would give renally doses metoclopramide IV and monitor for side effects - using IV morphine sparingly d/t concern that it will contribute to decrease bowel motility - cannot use ketorolac d/t renal disease - can also use acetaminophen for pain - start ppi Renal osteodystrophy 10/25/2020 Hyperlipidemia 11/17/2018 Anxiety disorder 11/17/2018 Type 1 diabetes mellitus with complication Assessment & Plan (12/23/2024 1:21 AM EDT): Will order home Lantus 20 units daily and sliding scale with meals Recent A1c is fairly well-controlled with hemoglobin A1c of 7.5 approximately 6 months ago We will repeat now Nonadherence to medical treatment Overview (06/25/2021): Failing to set-up outpatient dialysis. Assessment & Plan (06/25/2021 8:10 PM EST): Patient advised that she needs to set up outpatient dialysis. She states that she has been trying, but has failed to do so. Last dialysis was June 08. Morbid obesity with BMI of 50.0-59.9, adult Essential hypertension ESRD (end stage renal disease) Resolved Problems Problem Noted Date Diagnosed Date Resolved Date Acute kidney injury superimp osed on chronic kidney disease 05/04/2021 06/25/2021 Assessment & Plan (05/04/2021 4:24 PM EST): - appears ckd has been progressing Creatinine [...] ejection fraction and no significant valvular dz High anion gap metabolic acidosis 05/03/2021 06/25/2021 Intentional drug overdose 11/02/2017 Assessment & Plan (11/02/2017 9:43 AM EDT): Poison control was contacted from the emergency [...] observation do to ongoing depression and suicidality. Ingestion of toxic substance 11/02/2017 11/02/2017 Encounters Date Type Department Care Team Description 01/30/2025 1:30 AM EDT Home Care Visit [facility] [address] [place] [phone] Catherine Herr RN SN HOME VISIT 01/23/2025 10:00 AM EDT Home Care Visit [facility] [address] [place] [phone] Catherine Herr RN SN HOME VISIT 01/19/2025 Episode Documentation Update [facility] [address] [place] [phone] 01/16/2025 4:00 AM EDT Home Care Visit [facility] [address] [place] [phone] Catherine Herr RN SN HOME VISIT 01/12/2025 Home Care Visit [facility] [address] [place] [phone] Catherine Herr, RN CASE COMMUNICATION 01/08/2025 Home Care Visit [facility] [address] [place] [phone] Catherine Herr, RN CASE COMMUNICATION 01/05/2025 7:02 PM EDT - 01/05/2025 11:00 PM EDT Emergency [facility] [address] [place] [phone] John Diaz MD Discharge Disposition: Home or Self Care 01/05/2025 Procedure [facility], Ct Scan - [address] [address] 01/02/2025 Home Care Visit [facility] [address] [place] [phone] Jodie Olivia, [place] CASE COMMUNICATION 12/26/2024 Home Care Visit [facility] [address] [place] [phone] Jodie Olivia RN CASE COMMUNICATION 12/25/2024 10:15 AM EDT Office Visit [facility] [address] [place] [phone] Oneil Reyes MD Palliative care encounter (Primary Dx); Ischemic cardiomyopathy; ESRD (end stage renal disease) 12/24/2024 2:30 AM EDT Ancillary Procedure [address] [address] Aracelis Allen MD 12/24/2024 2:26 AM EDT - 12/24/2024 3:05 PM EDT Emergency [facility] [address] [place] [phone] Aracelis Allen MD Daul, Adrian D, MD Discharge Disposition: Home or Self Care 12/22/2024 8:45 PM EDT Ancillary Procedure [address] [address] Lorenzo Duffy MD 12/22/2024 4:29 PM EDT - 12/23/2024 9:23 AM EDT Hospital Encounter [facility] [address] [place] [address] Lorenzo Duffy MD Ewall, Katharine E, MD Kielbasa, Shasta A, MD Discharge Disposition: Home or Self Care 12/22/2024 Episode Documentation Update [facility] [address] [place] [phone] 12/21/2024 Plan of Care Documentation [facility] [address] [place] [phone] 12/19/2024 6:00 AM EDT Home Care Visit [facility] [address] [place] [phone] Catherine Herr, [place] SN OASIS START OF CARE (SOC) 12/17/2024 Orders Only [facility] [address] [place] [phone] Homehealth, Interface ProviderMD 11/10/2024 Transcribe Orders [facility] [address] [place] [address] [place] [address] Nicholas Yang MD 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 on chronic dialysis (Primary Dx) from Last 3 Months Family History Medical History Relation Comments Diabetes Father Diabetes Maternal Grandmother Alcohol abuse Mother Schizophrenia Mother Diabetes Paternal Grandfather Relation Status Comments Father Maternal Grandmother Mother Paternal Grandfather Social History Tobacco Use Types Packs/Day Years [...] Orientation Queer 01/18/2018 1: 14 PM EDT Last Filed Vital Signs Vital Sign Reading Time Taken Comments Blood Pressure 102/62 01/30/2025 3:45 PM EDT Pulse 81 01/30/2025 3:45 PM EDT Temperature 37.2 C (98.9 F) 01/30/2025 3:45 PM EDT Respiratory Rate 18 01/30/2025 3:45 PM EDT Oxygen Saturation 97% 01/30/2025 3:45 PM EDT Inhaled Oxygen Concentration 6% 11/02/2017 7 :15 AM EDT Weight 107 kg (236 lb) 01/05/2025 5:24 PM EDT Height 167.6 cm (5' 6 ) 01/05/2025 5:24 PM EDT Body Mass Index 38.09 01/05/2025 5:24 PM EDT Plan of Treatment Upcoming Encounters Date Type Department Care Team (Late st Contact Info) Description 02/12/2025 1:00 AM EDT Appointment [facility] [address] [place] [phone] Catherine Herr, [place] [address] [place] [address] Health Maintenance Due Date Last Done Comments DEPRESSION SCREENING 1993 SMOKING Hx and SMOKELESS TOBACCO SCREENING 1994 HEPATITIS C SCREENING 1999 HIV ONE-TIME SCREENING (18-65 YEARS) 1999 PAP SMEAR 2002 DIABETIC EYE EXAM 11/02/2017 PNEUMOCOCCAL VACCINES (0-49 years) (2 of 2 - PCV) 07/23/2019 07/23/2018, 12/19/2016 MAMMOGRAM 2021 HEMOGLOBIN A1C 12/23/2024 06/25/2024, 03/11, 12/26/2023, Additional history exists INFLUENZA VACCINE (#1) 2025 , 04/16/2019, 07/23/2018 COVID-19 VACCINE ( - season) 2025 10/23/2020, 10/02/2020 BLOOD PRESSURE 08/02/2025 01/30/2025 Adult Td,Tdap Booster 07/23/2028 07/23/2018, 013 HEPATITIS A VACCINES Aged Out No long er eligible based on patient's age to complete this topic HIB VACCINES Aged Out No longer eligi ble based on patient's age to complete this topic MENINGOCOCCAL VACCINES (ACWY) Aged Out No longer eligible based on patient's age to complete this topic MENINGOCOCCAL VACCINES (B) Aged Out N o longer eligible based on patient's age to complete this topic Medical Devices Not on file Procedures Procedure Name Priority Date/Time Associated Diagnosis Comments TROPONIN STAT 01/05/2025 9:[address] CHEST PULMONARY ANGIOGRAM (ACUTE) STAT 01/05/2025 9:07 PM EDT TROPONIN STAT 01/05/2025 8:25 PM EDT TROPONIN STAT 01/05/2025 6:58 PM EDT TROPONIN STAT 01/05/2025 5:59 PM EDT NT-PROBNP STAT 01/05/2025 5:59 PM EDT BASIC METABOLIC PANEL STAT 01/05/2025 5:59 PM EDT CBC AND DIFFERENTIAL STAT 01/05/2025 5:59 PM EDT XR CHEST PA AND LATERAL 2 VIEWS STAT 01/05/2025 5:37 PM EDT ECG 12-LEAD STAT 01/05/2025 5:25 PM EDT POCT GLUCOSE Routine 12/24/2024 12:40 PM EDT POCT GLUCOSE Routine 12/24/2024 7:54 AM EDT BASIC METABOLIC PANEL STAT 12/24/2024 3:04 AM EDT CBC AND DIFFERENTIAL STAT 12/24/2024 3:04 AM EDT US BEDSIDE Routine 12/24/2024 2:27 AM EDT ECG 12-LEAD STAT 12/24/2024 2:16 AM EDT POCT GLUCOSE Routine 12/23/2024 7:53 AM EDT CBC Routine 12/23/2024 5:26 AM EDT PHOSPHORUS Routine 12/23/2024 5:26 AM EDT MAGNESIUM Routine 12/23/2024 5:26 AM EDT BASIC METABOLIC PANEL Routine 12/23/2024 5:26 AM EDT ECG 12-LEAD STAT 12/22/2024 11:10 PM EDT US BEDSIDE Routine 12/22/2024 8:42 PM EDT NT-PROBNP STAT 12/22/2024 6:28 PM EDT LFTS (HEPATIC PANEL) STAT 12/22/2024 6:28 PM EDT BASIC METABOLIC PANEL STAT 12/22/2024 6:28 PM EDT CBC AND DIFFERENTIAL STAT 12/22/2024 6:28 PM EDT XR CHEST PORTABLE Routine 12/22/2024 6:2 5 PM EDT ECG 12-LEAD STAT 12/22/2024 4:18 PM EDT from Last 3 Months Results * (ABNORMAL) Troponin (01/05/2025 9:39 PM EDT) Only the most recent of4 resultswithin the time period is included. Troponin-T, HS Gen5 330(H) 0 - 9 ng/L [facility] Blood 01/05/2025 9:3 9 PM EDT 01/05/2025 9:45 PM EDT us John Diaz MD LAB BLOOD ORDERABLES Final Re sult [address] [address] * CT CHEST PULMONARY ANGIOGRAM (ACUTE) (01/05/2025 9:07 PM EDT) Anatomical Region Laterality Modality Chest, Thoracic Vasculature Comp uted Tomography 01/05/2025 9:54 PM EDT Impressions 01/05/2025 10:00 PM EDT 1. No pulmonary embolism. 2. Mild pulmonary edema with trace right and moderate left pleural effusions. Moderate to large pericardial effusion. 3. Partial collapse of left lower lobe. Narrative 01/05/2025 10:[address] CHEST PULMONARY ANGIOGRAM (ACUTE) Referring clinician's provided indication for this examination in [facility]: * PE suspected, high prob TECHNIQUE: Multidetector CT pulmonary angiography was performed after administration of intravenous contrast using tailored dose modulation techniques. 3D angiographic postprocessing techniques were acquired in the form of axial maximum intensity projection images (MIPS). COMPARISON: XR CHEST PA AND LATERAL 2 VIEWS 17:41:07.000 FINDINGS: Pulmonary Angiogram: The pulmonary arteries are well opacified. There is no pulmonary embolus. Devices/Tubes/Lines: Right IJ dual-lumen catheter. Lungs: Interlobular septal thickening in the bilateral lower lobes. Partial collapse of the left lower lobe. Patchy consolidations in the left upper lobe. Scarring or atelectasis in the right middle and lower lobes. Pleura: Moderate left and trace right pleural effusions. No pneumothorax. Mediastinum: No thyroid nodules. Mild atherosclerotic calcifications in the thoracic aorta. Common origin of the right innominate and left common carotid arteries. Coronary artery calcifications. Pericardial effusion. Lymph Nodes: Normal. No enlarged supraclavicular, axillary, mediastinal, or hilar lymph nodes. Upper Abdomen: Normal. No abnormality in the visualized upper abdomen. Chest Wall: Normal. No chest wall mass. Bones: Degenerative changes of the spine. No destructive osseous lesions. Procedure Note Rossy Maria MD - 01/05/2025 CT CHEST PULMONARY ANGIOGRAM (ACUTE) Referring clinician's provided indication for this examination in [facility]: *PE suspected, high prob TECHNIQUE: Multidetector CT pulmonary angiography was performed afteradministration of intravenous contrast using tailored dose modulationtechniques. 3D angiographic postprocessing techniques were acquired in theform of axial maximum intensity projection images (MIPS). COMPARISON: XR CHEST PA AND LATERAL 2 VIEWS 17:41:07.000 FINDINGS: Pulmonary Angiogram: The pulmonary arteries are well opacified. There is no pulmonaryembolus. Devices/Tubes/Lines: Right IJ dual-lumen catheter. Lungs: Interlobular septal thickening in the bilateral lower lobes.Partial collapse of the left lower lobe. Patchy consolidations in the leftupper lobe. Scarring or atelectasis in the right middle and lower lobes. Pleura: Moderate left and trace right pleural effusions. Nopneumothorax. Mediastinum: No thyroid nodules. Mild atherosclerotic calcifications inthe thoracic aorta. Common origin of the right innominate and left commoncarotid arteries. Coronary artery calcifications. Pericardial effusion. Lymph Nodes: Normal. No enlarged supraclavicular, axillary, mediastinal,or hilar lymph nodes. Upper Abdomen: Normal. No abnormality in the visualized upper abdomen. Chest Wall: Normal. No chest wall mass. Bones: Degenerative changes of the spine. No destructive osseouslesions. IMPRESSION: 1. No pulmonary embolism. 2. Mild pulmonary edema with trace right and moderate left pleuraleffusions. Moderate to large pericardial effusion. 3. Partial collapse of left lower lobe. us John Diaz MD IM CT CHEST Final Result * (ABNORMAL) CBC and differential (01/05/2025 5:59 PM EDT) Only the most recent of3 resultswithin the time period is included. WBC 7.03 4.00 - 11.00 K/uL [facility] RBC 3.11(L) 4.00 - 5.20 M/uL [facility] HGB 8.8(L) 12.0 - 16.0 g/dL [facility] HCT 29.1(L) 36.0 - 46.0 % [facility] PLT 336 150 - 450 K/uL [facility] MCV 93.6 80.0 - 100.0 fL [facility] MCH 28.3 27.0 - 31.0 pg [facility] MCHC 30.2(L) 32.0 - 36.0 g/dL [facility] RDW 15.7(H) 11.5 - 14.5 % [facility] MPV 10.9 8.4 - 12.0 fL [facility] NRBC 0.00 0.00 /100 WBCs [facility] ABSOLUTE NRBC 0.00 0.00 K/uL [facility] DIFF METHOD Auto [facility] NEUTS 66.5 48.0 - 76.0 % [facility] LYMPHS 19.9 18.0 - 41.0 % [facility] MONOS 10.8 4.0 - 11.0 % [facility] EOS 1.8 0.0 - 5.0 % [facility] BASOS 0.6 0.0 - 1.5 % [facility] Granulocytes, immature (%) 0.4 0.0 - 0.9 % [facility] ABSOLUTE NEUTS 4.67 1.92 - 7.60 K/uL [facility] ABSOLUTE LYMPHS 1.40 0.72 - 4.10 K/uL [facility] ABSOLUTE MONOS 0.76 0.16 - 1.10 K/uL [facility] ABSOLUTE EOS 0.13 0.00 - 0.50 K/uL [facility] ABSOLUTE BASOS 0.04 0.00 - 0.15 K/uL [facility] Granulocytes, immature 0.03 0.00 - 0.09 K/uL [facility] Blood 01/05/2025 5:59 PM EDT 01/05/2025 6:19 PM EDT us John Diaz MD LAB BLOOD ORDERABLES Final Re sult [address] [address] * (ABNORMAL) NT-proBNP (01/05/2025 5:59 PM EDT) Only the most recent of2 resultswithin the time period is included. NT-PROBNP >29212(H) 0 - 125 pg/mL [facility] Blood 01/05/2025 5:59 PM EDT 01/05/2025 6:19 PM EDT us John Diaz MD LAB BLOOD ORDERABLES Final Re sult Performing Organization Address [facility]/ZIP Co de Phone Number [address] [address] * (ABNORMAL) Basic metabolic panel (01/05/2025 5:59 PM EDT) Only the most recent of4 resultswithin the time period is included. SODIUM 137 133 - 146 mmol/L [facility] CHLORIDE 95(L) 96 - 108 mmol/L [facility] POTASSIUM 4.2 3.3 - 5.1 mmol/L [facility] CO2 24 21 - 35 mmol/L [facility] BUN 46(H) 6 - 19 mg/dL [facility] CREATININE 8.50(HH) 0.5 - 1.5 mg/dL [facility] Comment: Critical value: Results called to and read back by: Jazzy Merlos GLUCOSE 112(H) 70 - 99 mg/dL [facility] CALCIUM 9.0 8.4 - 10.3 mg/dL [facility] EGFR 5(L) >59 mL/min/1.7 3m2 [facility] Comment:Estimated glomerular filtration rate calculated using the CKD-EPI refit equation. ANION GAP 22(H) 10 - 20 mmol/L [facility] Blood 01/05/2025 5:59 PM EDT 01/05/2025 6:19 PM EDT us John Diaz MD LAB BLOOD ORDERABLES Final Re sult Performing Organization Address [facility]/ZIP Co de Phone Number [address] [address] * XR CHEST PA AND LATERAL 2 VIEWS (01/05/2025 5:37 PM EDT) Anatomical Region Laterality Modality Chest Computed Radiogr aphy 01/05/2025 5:47 PM EDT Impressions 01/05/2025 5:49 PM EDT Pulmonary edema with a moderate to large left pleural effusion Narrative 01/05/2025 5:49 PM EDT XR CHEST PA AND LATERAL 2 VIEWS Referring clinician's provided indication for this examination in [facility]: Dyspnea (Shortness of Breath) COMPARISON: December 22, 2024 FINDINGS: Devices/Tubes/Lines: The tip of a right hemodialysis catheter projects over the right atrium. Lungs: There is pulmonary vascular congestion, interstitial prominence and opacification of the middle and lower lobes bilaterally. Pleura: Moderate to large left and small right pleural effusions. No pneumothorax. Heart/Mediastinum: The size of the cardiac silhouette is enlarged. Bones/Soft Tissues: No significant abnormality. Procedure Note Ladi Nicholson MD - 01/05/2025 XR CHEST PA AND LATERAL 2 VIEWS Referring clinician's provided indication for this examination in [facility]:Dyspnea (Shortness of Breath) COMPARISON: December 22, 2024 FINDINGS: Devices/Tubes/Lines: The tip of a right hemodialysis catheter projectsover the right atrium. Lungs: There is pulmonary vascular congestion, interstitial prominence andopacification of the middle and lower lobes bilaterally. Pleura: Moderate to large left and small right pleural effusions. Nopneumothorax. Heart/Mediastinum: The size of the cardiac silhouette is enlarged. Bones/Soft Tissues: No significant abnormality. IMPRESSION: Pulmonary edema with a moderate to large left pleural effusion us John Diaz MD IMG XR CHEST Final Result * ECG 12-LEAD (01/05/2025 5:25 PM EDT) Only the most recent of4 resultswithin the time period is included. Ventricular Rate EKG/MIN 92 BPM [facility] Atrial Rate 92 BPM [facility] WY Interval 160 ms [facility] QRS Duration 96 ms [facility] QT Interval 384 ms [facility] QTC Interval 474 ms [facility] P [place] 28 degrees [facility] R Wave [place] -29 degrees [facility] T Wave [place] 112 degrees [facility] 01/05/2025 5:25 PM EDT 01/06/2025 10:55 AM EDT Narrative [facility] - 01/06/2025 10:55 AM EDT Normal sinus rhythm Inferior infarct , age undetermined Possible Anterior infarct (cited on or before 22-Dec-2024) T wave abnormality, consider lateral ischemia Abnormal ECG When compared with ECG of 24-Dec-2024 02:16, No significant change was found Confirmed by Oneil CARTER ([id number]) on 01/06/2025 10:55:48 AM us John Diaz MD ECG ORDERABLES Final Result Performing Organization Address City/[facility]/ZIP Co de Phone Number [email or web address] * (ABNORMAL) POCT Glucose (12/24/2024 12:40 PM EDT) Only the most recent of3 resultswithin the time period is included. [facility] Signature Glucose, POCT 183(H) 70 - 100 mg/dL [facility] 12/24/2024 12:4 0 PM EDT 12/24/2024 12:43 PM EDT us William Casey MD POINT OF CARE TEST ORDERABLES F inal Result Performing Organization Address [facility] Co de Phone Number [address] [address] * US BEDSIDE (12/24/2024 2:27 AM EDT) Anatomical Region Laterality Modality Ultrasound Narrative 12/24/2024 2:27 AM EDT Aracelis Allen MD 12/24/2024 3:06 AM Bedside Ultrasound Date/Time: 12/24/2024 2:27 AM Performed by: Aracelis Allen MD Authorized by: Aracelis Allen MD Exam Type: Cardiac Transthoracic Echocardiogram Cardiac Transthoracic Echocardiogram Exam Findings & Impression: Indications: patient with shortness of breath Views: parasternal long and parasternal short Pericardial Effusion: the pericardial space was visualized and was positive for a pericardial effusion LV Function: the heart was visualized with depressed LV function Other findings: No tamponade physiology, effusion unchanged from prior Overall Impression: positive Images: Images Saved: Yes Accession Number: [id number] us Aracelis Allen MD IMG POINT OF CARE EXAMS Tila l Result * (ABNORMAL) CBC (12/23/2024 5:26 AM EDT) WBC 6.43 4.00 - 11.00 K/uL [facility] RBC 3.05(L) 4.00 - 5.20 M/uL [facility] HGB 8.8(L) 12.0 - 16.0 g/dL [facility] HCT 28.6(L) 36.0 - 46.0 % [facility] PLT 312 150 - 450 K/uL [facility] MCV 93.8 80.0 - 100.0 fL [facility] MCH 28.9 27.0 - 31.0 pg [facility] MCHC 30.8(L) 32.0 - 36.0 g/dL [facility] RDW 16.8(H) 11.5 - 14.5 % [facility] MPV 10.8 8.4 - 12.0 fL [facility] NRBC 0.00 0.00 /100 WBCs [facility] ABSOLUTE NRBC 0.00 0.00 K/uL [facility] Blood 12/23/2024 5:26 AM EDT 12/23/2024 5:45 AM EDT Destiny Aaron MD LAB BLOOD ORDERABLES Final Result Performing Organization Address [facility] Co de Phone Number [address] [address] * (ABNORMAL) Phosphorus (12/23/2024 5:26 AM EDT) PHOSPHORUS 6.6(H) 2.7 - 4.5 mg/dL [facility] Blood 12/23/2024 5:26 AM EDT 12/23/2024 5:45 AM EDT Destiny Aaron MD LAB BLOOD ORDERABLES Final Result Performing Organization Address [facility] Co de Phone Number [address] [address] * Magnesium (12/23/2024 5:26 AM EDT) Pathologist [facility] MAGNESIUM 2.2 1.6 - 2.6 mg/dL [facility] Blood 12/23/2024 5:26 AM EDT 12/23/2024 5:45 AM EDT Destiny Aaron MD LAB BLOOD ORDERABLES Final Result Performing Organization Address City/State/[facility] Co de Phone Number [address] [address] * US BEDSIDE (12/22/2024 8:42 PM EDT) Anatomical Region Laterality Modality Ultrasound Narrative 12/22/2024 8:42 PM EDT Lorenzo Duffy MD 12/22/2024 11:17 PM Bedside Ultrasound Date/Time: 12/22/2024 8:42 PM Performed by: Jaci Cedeno PA-C Authorized by: Lorenzo Duffy MD Exam Type: Cardiac Transthoracic Echocardiogram Cardiac Transthoracic Echocardiogram Exam Findings & Impression: Indications: patient with chest pain Views: parasternal short and subxiphoid Pericardial Effusion: the pericardial space was visualized and was positive for a pericardial effusion LV Function: the heart was visualized with severely depressed LV function Overall Impression: positive Images: Images Saved: Yes Accession Number: [id number] Lorenzo Duffy MD IMG POINT OF CARE EXAMS Fin al Result * (ABNORMAL) LFTs (hepatic panel) (12/22/2024 6:28 PM EDT) Pathologist [facility] ALKALINE PHOSPHATASE 185(H) 39 - 117 U/L [facility] TOTAL BILIRUBIN 0.3 0.0 - 1.2 mg/dL [facility] DIRECT BILIRUBIN <0.1 0.0 - 0.2 mg/dL [facility] Bilirubin (Indirect) NOT CALCULATED 0 - 1.5 mg/dL [facility] AST 17 0 - 37 U/L [facility] ALT 8 0 - 40 U/L [facility] TOTAL PROTEIN 7.1 6.5 - 8.0 g/dL [facility] ALBUMIN 3.3(L) 3.9 - 4.8 g/dL [facility] GLOBULIN 3.8 1 - 4.8 g/dL [facility] A/G Ratio 0.87(L) 1.00 - 4.80 RATIO [facility] Blood 12/22/2024 6:28 PM EDT 12/22/2024 6:33 PM EDT Jaci Cedeno PA-C LAB BLOOD ORDERABLES Final Result [facility] [address] [place] [address] * XR Chest Portable (12/22/2024 6:25 PM EDT) Anatomical Region Laterality Modality Chest Computed Radiogr aphy 12/22/2024 8:15 PM EDT Impressions 12/22/2024 8:18 PM EDT Increased cardiomegaly versus pericardial effusion. Narrative 12/22/2024 8:18 PM EDT XR CHEST PORTABLE Referring clinician's provided indication for this examination in [facility]: Pneumonia; Dyspnea (Shortness of Breath) COMPARISON: XR CHEST PORTABLE FINDINGS: Devices/Tubes/Lines: Right-sided dialysis catheter extending to the right atrium. Lungs: Low lung volumes. Probable bibasilar atelectasis. No overt pulmonary edema. Pleura: Possible small left pleural effusion. Heart/Mediastinum: Moderate cardiomegaly appears increased. Bones/Soft Tissues: No significant abnormality. Procedure Note Cr Goodson MD, PhD - 12/22/2024 XR CHEST PORTABLE Referring clinician's provided indication for this examination in [facility]:Pneumonia; Dyspnea (Shortness of Breath) COMPARISON: XR CHEST PORTABLE FINDINGS: Devices/Tubes/Lines: Right-sided dialysis catheter extending to the rightatrium. Lungs: Low lung volumes. Probable bibasilar atelectasis. No overtpulmonary edema. Pleura: Possible small left pleural effusion. Heart/Mediastinum: Moderate cardiomegaly appears increased. Bones/Soft Tissues: No significant abnormality. IMPRESSION: Increased cardiomegaly versus pericardial effusion. Jaci Cedeno PA-C IMG XR CHEST Final Result from Last 3 Months Insurance * Guarantor: Phoenix Leach Account Type Relation to Patient Date of Phone Billing Address Personal/Family Self [address] [place] [address] MEDICARE PART A & B [facility] ONE CARE MEDICARE REPLACEMENT FELA HOLLOWAY [id number] * Guarantor: Phoenix Leach Account Type Relation to Patient Date of Phone Billing Address Personal/Family Self [address] [place] [address] MEDICARE PART A & B ONE CARE MEDICARE REPLACEMENT FELA HOLLOWAY [employer] * Guarantor: HayleePhoenix Account Type Relation to Patient Date of Phone Billing Address Personal/Family Self [address] [place] [address] MEDICARE PART A & B * Guarantor: Phoenix Leach Account Type Relation to Patient Date of Phone Billing Address Personal/Family Self [address] [place] [address] MEDICARE PART A & B * Guarantor: Phoenix Leach Account Type Relation to Patient Date of Phone Billing Address Personal/Family Self [address] [place] [address] MEDICARE PART A & B [facility] ONE CARE MEDICARE REPLACEMENT * Guarantor: Phoenix Leach Account Type Relation to Patient Date of Phone Billing Address Personal/Family Self [address] [place] [address] MEDICARE PART A & B * Guarantor: Phoenix Leach Account Type Relation to Patient Date of Phone Billing Address Personal/Family Self [address] [place] [address] MEDICARE PART A & B Member Subscriber Plan / Payer (Ef fective 2018-Present) Name:Phoenix Leach Member ID:[id number] Relation to Subscriber:Self Name:Phoenix Leach Subscriber ID:[id number] Payer ID:[id number] Group ID:Not on file Type:Medicare Address: [employer] Plan [address] CARE MEDICARE REPLACEMENT [place] [phone] [address] [facility] [address] [place] [address] MEDICARE PART A & B CARE MEDICARE REPLACEMENT FELA HOLLOWAY [id number] * Guarantor: Phoenix Leach Account Type Relation to Patient Date of Phone Billing Address Personal/Family Self 1980 [address] [facility] [address] [place] [address] MEDICARE PART A & B [facility] ONE CARE MEDICARE REPLACEMENT Member Subscriber Plan / Payer (Ef fective 2022-Present) Name:Phoenix Leach Relation to Subscriber:Self Name:Phoenix Leach Payer ID:[id number] (NAIC) Group ID:[id number] Type:Medicare Address: [facility] [address] [employer] Advance Directives For more information, please contact: [phone] (9AM - 5PM [facility], Sunday-Sunday) * DNR/DNI (No CPR/No Intubation) (Latest Code Status on File) Date Activated Date Inactivated Comments 12/24/2024 2:54 AM Question Answer Comments Code Status Confirmed With: Patient * Full Code Date Activated Date Inactivated Comments 12/23/2024 12:46 AM 12/24/2024 2:54 AM Question Answer Comments Code Status Confirmed With: Patient * Full Code Date Activated Date Inactivated Comments 05/03/2021 4:43 PM 12/23/2024 12:46 AM Question Answer Comments Code Status Confirmed With: Other (specify below ) Code Status Communicated To: Inpatient Attending Code Discussion Comments: presumed * Full Code (Presumed) Date Activated Date Inactivated Comments 11/02/2017 10:32 AM 11/03/2017 9:39 PM Care Teams Petroleum Refinery Laborer Relationship Specialty Start Date End Date Nicholas Yang MD [address] [place] [address] PCP - General Family Medicine 12/17/24 Saroj Bustillo MD 100 [facility] [address] [place] [address] [email or web address] Data Developer Nephrology 05/03/21 Additional Source Comments The information contained in this document represents components of the legal health record. It is not the complete legal health record.[facility]
--- OUTSIDE RECORDS SUMMARY | 2025-02-10 12:53 | XMS_ITS | Encounter Summary ---
Author Organization [facility] Address [address] [place] [address] Phone Care Team Providers Care Relief Worker Name Role Phone Medina Ren RECEIVER Primary Care Provider [phone] Reason for Visit * Reason Comments Med Refill Encounter Details Date Type Department Care Team (Late st Contact Info) Description 09/06/2022 Refill [facility] [address] [place] [address] Chan Magaña MD Social History [...] on filedocumented in this encounter Care Teams Relief Worker Relationship Specialty Start Date End Date Medina Ren NP [address] [place] [address] PCP - General Nurse Practitioner 01/03/21 documented as of this encounter
--- OUTSIDE RECORDS SUMMARY | 2025-02-10 12:53 | XMS_ITS | Encounter Summary ---
Author Organization [facility] Address [address] [facility] [address] [place] [address] Phone Care Team Providers Care Service Unit Operator Oil Well Name Role Phone Medina Ren NP Primary Care Provider Saroj Bustillo MD Unavailable [phone] Pcp, Unknown Primary Care Provider Nicholas Diane MD Primary Care Provider Encounter Details Date Type Department Care Team (Late st Contact Info) Description 05/03/2021 Procedure Pass [facility] [address] [place] [address] Social History Tobacco Use Types Packs/Day Years [...] 05/03/2021 10:16 AM Jacqui Chu RN * [place] Suicide Severity Rating Scale (Screener/Recent Self-Report) Question Answer Date of Assessment Author 1. Wish to be (Past 1 Month) No 05/03/2021 10:16 AM Jacqui Zarate RN 2. Non-Specific Active Suicidal Thoughts (Past 1 Month) No 05/03/2021 10:16 AM Jacqui Zarate RN 6. Suicidal Behavior (Lifetime) No 05/03/2021 10:16 AM Jacqui Zarate RN documented as of this encounter Plan of Treatment Upcoming Encounters Date Type Department Care Team (Late st Contact Info) Description 02/12/2025 1:00 AM EDT Appointment [facility] [address] [place] [address] Catherine Herr, [place] [address] [place] [address] [email or web address] documented as of this encounter Visit Diagnoses Not on filedocumented in this encounter Additional Health Concerns Infection Onset Date Last Indicated Resolved Time CoV-Risk 06/12/2021 06/12/2021 06/22/2021 1:23 AM EST CoV-Risk 06/25/2021 06/25/2021 07/05/2021 1:25 AM EST documented as of this encounter Care Teams Service Unit Operator Oil Well Relationship Specialty Start Date End Date Medina Ren NP PCP - General Family Medicine 01/30/21 12/02/21 Pcp, Unknown PCP - General 12/03/21 12/16/24 Nicholas Yang MD [address] [place] [address] PCP - General Family Medicine 12/17/24 Saroj Bustillo MD [address] [address] [email or web address] Marking Devices Assembler Nephrology 05/03/21 documented as of this encounter Additional Source Comments The information contained in this document represents components of the legal health record. It is not the complete legal health record.[facility]
--- OUTSIDE RECORDS SUMMARY | 2025-02-10 12:53 | XMS_ITS | Clinical Summary ---
Author Organization [address] Address [address] [place] [address] Phone Care Team Providers Care Traffic Signal Mechanic Name Role Phone Nicholas Yang MD Primary [...] = EA 2 each 11 5 Active insulin degludec (TRESIBA FlexTouch) 100 unit/mL (3 mL) injection penIndications:T ype 1 diabetes mellitus with other specified complication ([facility] V24, [facility] V28) 20 units daily Subcutaneous 30 mL 1 5 Active ezetimibe (ZETIA) 10 mg tablet Take 1 tablet (10 mg total) by mouth 1 (one) time each day. 60 tablet 2 5 Active Esperanza 2nd Gen Pen Needle 32 gauge x needleIndication s:Type 1 diabetes mellitus with other specified complication ([facility] V24, [facility] V28) USE 4 NEEDLES WITH INSULIN [...] medical therapy. Acute hypoxic respiratory fa ilure ([facility] V24, [facility] V28) 09/14/2023 Atherosclerotic heart disease 09/14/2023 [...] 911. NSTEMI (non-ST elevated myoc ardial infarction) ([facility] V24, [facility] V28) 09/14/2023 Overview (03/25/2024): Last Assessment & Plan: With three-vessel coronary artery disease and ischemic cardiomyopathy. I do not think PCI is a good idea. So far, she has no angina symptoms. Unfortunately, she is quite adamant that she will not get any care in [facility]. I will try to refer her to Dr. Almanza in [facility] as long as her insurance allowed her. Will continue high-dose statin and aspirin. Will need to repeat lipid profile. Pulmonary edema 09/14/2023 Encounters Date Type Department Care Team Description 02/05/2025 Telephone [facility] [address] [place] [phone] Amena Up PA 01/19/2025 Telephone [facility] [address] [facility] [address] [place] [address] Nicholas Yang MD from Last 3 Months Medical History Medical History Date Comments Volume overload DX:Volume overlo ad Influenza DX:Influenza Hyperglycemia due to diabete s mellitus ([facility] V24, [facility] V28) DX:Hyperglycemia due to earlene betes mellitus (HCC) Social History Tobacco Use Types Packs/Day Years [...] Description 02/26/2025 10:40 AM EDT Office Visit [facility] - [facility] [address] [facility] [address] [place] [phone] Elicia Chan NP [address] [place] [address] [place] [phone] Health Maintenance Due Date Last Done Comments Breast Cancer Screening 1981 Diabetes: Annual Foot Exam 1991 Diabetes: Annual Retina Eye Exam 1991 Cervical Cancer Screening: Pap Smear 2002 Diabetes: Annual GFR (Glomerular Filtration Rate) 09/06/2023 09/05/2022, 09/05/2022, 09/04/2022, Additional history exists HIV Screening 03/20/2024 Hepatitis C Screening 03/20/2024 Hypertension/CHF/CAD Annual BMP Blood Test 03/20/2024 09/05/2022, 09/05/2022, 09/04/2022, Additional history exists Social Influencers of Health Screening 03/20/2024 Cholesterol Screening (Lipid Panel) 04/03/2024 04/03/2019 Depression Screening 06/11/2024 Diabetes: Annual Urine Albumin-Creatinine Ratio (uACR) 06/13/2024 04/03/2019 Diabetes: Blood Sugar Control Test (HGBA1C) 06/13/2024 09/01/2022, 04/03/2019 COVID-19 Vaccine (3 - 2024- season) 2025 10/23/2020, 10/02/2020 Influenza Vaccine (#1) 2025 , 06/05/2021, 04/16/2019, [...] patient's age to complete this topic Insurance [facility] Member Subscriber Plan / Payer (Ef fective 2022-Present) Name:Phoenix Leach Relation to Subscriber:Self Name:Phoenix Leach Payer ID:[id number] Group ID:[id number] Type:Not on file Address: [facility] [address] [address] Advance Directives Documents on File Type Date Recorded Patient 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
--- OUTSIDE RECORDS SUMMARY | 2025-02-10 12:53 | XMS_ITS | Clinical Summary ---
Author Organization [facility] Address [address] [place] [address] Care Team Providers Care Cart Driver Name Role Phone Unavailable Primary Care Provider Unavailabl e Social History Tobacco Use Types Packs/Day Years Used Date Smoking Tobacco: Never Assessed Sex and Gender Information Value Date Recorded Sex Assigned at Not on file Gender Identity Not on file Sexual Orientation Not on file Plan of Treatment Not on file
--- OUTSIDE RECORDS SUMMARY | 2025-02-10 12:53 | XMS_ITS | Clinical Summary ---
Author Organization [facility] Address [address] [place] [address] Care Team Providers Care Leakage Tester Name Role Phone Elkin Renia ESPERANZA Primary Care Provider [phone] Allergies No known active allergies Medications * [...] in a snf (including now)? No 09/03/2022 Comments Unknown Sex [...] - 99 mg/dL 09/05/2022 8:57 AM EDT [facility] Comment:Fasting: <100 mg/dL, Non-Fasting: <200 mg/dL (ADA 2005) Blood Urea Nitrogen (BUN) 66(H) 8 - 21 mg/dL 09/05/2022 8:57 AM EDT [facility] Creatinine 9.8(H) 0.4 - 1.1 mg/dL 09/05/2022 8:57 AM EDT [facility] eGFR 5(L) >59 09/05/2022 8:57 AM T [facility] Comment: CKD-EPI (2020) in mL/min/1.73 sq meters. Reported eGFR is based on the CKD-EPI equation that does not use a race coefficient as of 08/15/2022 Sodium 139 136 - 145 mmol/L 09/05/2022 8:57 AM [facility] Potassium 4.5 3.4 - 5.3 mmol/L 09/05/2022 [...] Final Res ult HOSPITAL LAB See Below [address] [address] * (ABNORMAL) Hemoglobin A1c with Estimated Average Glucose (09/01/2022 6:06 AM EDT) Hemoglobin A1C 6.5(H) <5.7 % 09/01/2022 8:23 AM T [facility] Comment: A1c% Interpretation 5.7 - 6.0 Increase risk of diabetes 6.1 - 6.4 Higher risk of diabetes > or = 6.5 Consistent with diabetes Diabetes Care, 33(Supp 1):S1-S61, 2009 Estimated Average Glucose 140 mg/dL 09/01/2022 8:23 AM T [facility] Blood specimen (specimen) Blood specimen / Unknown 09/01/2022 6:06 AM EDT 09/01/2022 6:11 AM EDT us Janice Smalls MD LAB BLOOD ORDERABLES Final Resu lt HOSPITAL LAB See Below [place] [address] [place] [address] from Last 3 Months or Most Recently Relevant to Health Maintenance Insurance [facility] MEDICARE OUT OF NETWORK [facility] HEALTH [facility] MGD MEDICARE OUT OF NETWORK Advance Directives * Full Code (Latest Code Status on File) Date Activated Date Inactivated Comments 09/01/2022 4:52 AM Care Teams Leakage Tester Relationship Specialty Start Date End Date Medina Ren NP [address] [place] [address] PCP - General Family Medicine 08/31/22
--- OUTSIDE RECORDS SUMMARY | 2025-02-10 12:53 | XMS_ITS | Encounter Summary ---
Author Organization [facility] Address [address] [place] [address] Care Team Providers Care Executive Coordinator Name Role Phone Nicholas Yang MD Primary Care Provider Reason for Visit * Reason Onset Date Comments PRIOR AUTH FREESTYLE MILIND 3 PLUS SENSOR 025 Encounter Details Date Type Department Care Team (Late st Contact Info) Description 02/05/2025 Telephone Endocrinology - [place] [address] [place] [address] Amena Up PA [address] [place] [address] Social History Tobacco Use Types Packs/Day Years [...] PM EST Sexual Orientation Not on file documented as of this encounter Progress Notes * Chitra Smith RN - 02/05/2025 3:12 PM EDT CCA PA form with required info faxed Decision pending * Belen Page - 02/05/2025 11:18 AM EDT Prior Authorization for Medication-do not complete and send this encounter unless you have the fax from the pharmacy. Is this a Cover My Meds request: Yes -- Miller Code [id number] Name of Medication FREESTYLE MILIND 3 PLUS SENSOR Dose of Medication MILIND 3 PLUS What is the RX # from the faxed refill? N/A How does patient take this med? N/A What Pharmacy did the fax come from: [facility] Pharmacy fax #: [phone] documented in this encounter Plan of Treatment Upcoming Encounters Date Type Department Care Team (Late st Contact Info) Description 02/26/2025 10:40 AM EDT Office Visit [facility] - [facility] [address] [facility] [address] [place] [phone] Elicia Chan, ESPERANZA [address] [place] [address] Dr [address] [place] [address] documented as of this encounter Visit Diagnoses Not on filedocumented in this encounter Care Teams Executive Coordinator Relationship Specialty Start Date End Date Nicholas Yang MD [address] [place] [address] Dr [address], [place] PCP - General 07/31/23 documented as of this encounter
--- OUTSIDE RECORDS SUMMARY | 2025-02-10 12:53 | XMS_ITS | Clinical Summary ---
Author Organization [facility] Address [address] [facility] [address] [place] [address] Phone Care Team Providers Care Senior Process Engineer Name Role Phone Medina Ren NP Primary Care Provider [phone] Allergies Active Allergy Reactions Criticality Noted Date [...] tablet 1 10/09/2022 Active ergocalciferol 1.25 MG (21253 UT) capsule TAKE 1 CAPSULE BY MOUTH [...] and replete electrolytes as needed. CARE AT [facility] Last Assessment & Plan: Monitoring blood sugars closely as above. Will need to restart on her home regimen once her blood sugars have stabilized. We'll follow her BMP regularly and replete electrolytes as needed. Type 1 diabetes mellitus 11/02/2017 Overview (10/25/2020): [facility] AT [facility] Last Assessment & Plan: Monitoring blood [...] Encounters Date Type Department Care Team Description 12/04/2024 Telephone [facility] - [facility] [address] [place] [address] [place] [address] Leslie Cabral 12/03/2024 3:00 PM EDT Office Visit [facility], [facility] Access Center [address] [place] [address] Nicholas Lujan MD End stage renal disease (HCC) [N18.6] (Primary Dx) 12/01/2024 Telephone [facility] [address] [place] [address] Elissa Fortune from Last 3 Months Immunizations Immunization Administration [...] 88 11/27/2023 10:21 AM EDT Temperature 36.3 C (97.3 F) 11/27/2023 10:21 AM EDT Respiratory Rate - - Oxygen Saturation 94% [...] 03/26/2024, 12/26/2023, Additional history exists Influenza Vaccine (#1) 2025 4, 06/05/2021, 07/23/2018 Pneumococcal Vaccine: 50+ Years Discontinued 9, 12/19/2016 Procedures Procedure Name Priority Date/Time Associated Diagnosis Comments SPECIAL CHEMISTRY Routine 06/25/2024 from Last 3 Months or Most Recently Relevant to Health Maintenance Results * (ABNORMAL) SPECIAL CHEMISTRY (06/25/2024) Hemoglobin A1C 7.5(H) 4.8 - 5.9 % [facility] 06/25/2024 06/30/2024 11: 12 AM EST Narrative [facility] - 06/30/2024 Unless otherwise specified, test(s) performed at: [facility], [address] [place] [id number] LEARNING AND DEVELOPMENT OFFICER: Reece Sexton M.D. For any questions, please call customer service at FREQUENCY:MONTHLY Resulting Agency Comment Specimen source: Blood Cooper Mena MD LAB BLOOD BANK TEST ORDERABLE S Final Result [place] See order comments or contact performing lab [facility], [place] from Last 3 Months or Most Recently Relevant to Health Maintenance Insurance [facility] ([id number]) [facility] Dual [facility] ([id number]) [facility] ([id number]) Care Teams Senior Process Engineer Relationship Specialty Start Date End Date Medina Ren NP [address] [place] [id number] PCP - General Nurse Practitioner 01/03/21
[2025-02-10 13:47] LABS: Estimated Glomerular Filt Rate 5
== END 2025-02-10 11:19 | disposition home or self-care (01) ==
LOC: HO.LAB 11:18
PROVIDERS: PCP Family Medicine; Visit Provider Family Medicine
DX: M54.42 Lumbago with sciatica, left side (principal); M54.41 Lumbago with sciatica, right side; G89.29 Other chronic pain
CPT/HCPCS: 80053; 80365; G0480

== ENCOUNTER 2025-02-11 10:50 | Outpatient (AMB) | payer OTHER, SELFPAY ==
--- NOTE | 2025-02-11 10:42 | A.OFFPC_ITS ---
Intake Visit Reasons: review pain control and lab work Intake Note: [place] presents for a telehealth appointment to discuss her pain control and lab work. Patient needs a refill of pantoprazole. Allergies Penicillins Allergy (Intermediate, Verified 02/11/25 10:44) compromises mental health Medication List - Last Reconciled 02/11/25 by Nicholas Yang MD albuterol sulfate 90 mcg/actuation (Ventolin HFA) 2 puffs PO Q4H PRN 1 month aspirin 81 mg PO DAILY 90 days atorvastatin 80 mg PO DAILY 90 days bisoprolol fumarate 2.5 mg (1/2 x 5 mg) PO DAILY 90 days blood sugar diagnostic (FreeStyle Lite Strips) Use to check blood sugar 4 times daily, before mealtimes and bedtime. blood-glucose meter (FreeStyle Lite Meter kit) Use to check blood sugar 4 times daily, before mealtimes and bedtime. blood-glucose sensor (ThePresent.CoStyle Fan 3 Sensor device) As directed blood-glucose,sail finisher hand,cont (FreeStyle Fan 3 [place]) As directed calcitriol 0.25 mcg PO TUTHSA cholecalciferol (vitamin D3) 50 mcg PO DAILY clonazepam 1 mg PO BID PRN diclofenac sodium 1% 4 grams topical QID 30 days ezetimibe 10 mg PO DAILY fluconazole 150 mg PO Q3D 2 doses hydromorphone 4 mg PO Q6H PRN 28 days inhalational spacing device (Aerochamber MV spacer) As directed insulin aspart U-100 (Novolog FlexPen U-100 Insulin aspart) 1 sliding scale dose subcut USEASDIRECTD 30 days insulin degludec (Tresiba FlexTouch U-200 insulin) 20 units (0.1 mL) subcut BEDTIME 30 days insulin syringe-needle U-100 (BD Insulin Syringe Ultra-Fine) USE 3 TIMES A DAY lancets (FreeStyle Lancets) Use to check blood sugar 4 times daily, before mealtimes and bedtime. midodrine 10 mg PO TID 30 days montelukast 10 mg PO BEDTIME pantoprazole 40 mg PO DAILY 90 days pen needle, diabetic (BD Ultra-Fine [place] Pen Needle) As directed four times a day sennosides (senna) 8.6 mg PO BEDTIME sucroferric oxyhydroxide (Velphoro) 500 mg PO TID ticagrelor 90 mg PO BID 90 days trazodone 300 mg PO BEDTIME Tobacco use date assessed: 02/11/25 Dental Screening Dental Screen Date: 02/11/25 (Patient has no teeth) Did you have a dental visit in the last 12 months?: No Did you have a dental problem in the last 6 months where you did not have access to dental care?: No Was dental information given to patient?: No HPI review pain control and lab work HPI Details 44 y/o female presents to review pain co ntrol and lab work via telemedicine. Has an appt. with Cardiology in February. Ongoing chronic back pain. Treating pain with hydromorphone which she is tolerating well. Pain is controlled. Has an appt. with pain management. 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 Autism Coronary artery disease Uncontrolled diabetes mellitus with hyperglycemia, with long-term current use of insulin Adrenal incidentaloma ESRD needing dialysis NSTEMI (non-ST elevated myocardial infarction) MDD (major depressive disorder) Hyperlipidemia due to type 1 diabetes mellitus Diabetic retinopathy Cauda equina syndrome Anasarca associated with disorder of kidney DM gastroparesis Abnormal abdominal MRI Hearing loss in right ear Hearing loss in left ear RSV infection Hypertensive urgency Diabetes mellitus type 1, uncontrolled Gastroparesis Moderate persistent asthma, uncomplicated Chronic GERD Cyclic vomiting syndrome Surgical History AVF (arteriovenous fistula) Previous back surgery Family History Father Diabetes Paternal Grandfather Diabetes Mother No known problems Social History (Updated 02/11/25 @ 10:48 by Cassidy Gardiner MA) Housing: Apartment Alcohol intake: never Patient Tobacco Use Status: Former Tobacco user e-Cigarette/Vaping Use: Never Used Second Hand Smoke Exposure: No Substance Use Type: Marijuana Advance Directives Date on File: 08/31/22 service: No Current occupational status: disabled Current occupational exposures/hazards: No Cognitive needs: No Hearing needs: No Vision needs: No Questionnaire Thrive Questionnaire Date Thrive assessed: 07/22/24 TERRY-7 AMB Questionnaire TERRY-7 Date TERRY - 7 assessed: 12/23/24 Source: Developed by Drs. Channing Funes, Tenisha Foley, Mohan Fagan and colleagues, with an educational francis from [employer]. Review of Systems Const Denies chills, Denies fatigue, Denies fever(s), Denies headache(s) and Denies weakness ENT Denies dizziness and Denies headache(s) Card Denies dyspnea Resp Denies cough, Denies dyspnea, Denies wheezing and Denies other (shortness of breath) Musc Reports back pain, Denies numbness and Denies tingling Neuro Denies dizziness, Denies headache(s), Denies numbness, Denies tingling and Denies weakness Psych Denies anxiety and Denies depression Endo Denies fatigue Aller/Immun Denies wheezing Physical exam (Primary Care) Tobacco/Smoking Status: Tobacco use Status Tobacco use date assessed 02/11/25 02/11/25 10:49 Patient Tobacco Use Status Former Tobacco user 02/11/25 10:48 e-Cigarette/Vaping Use Never Used 02/11/25 10:48 Thrive Assessment: Date of Thrive Assessment Date Thrive assessed 07/22/24 02/11/25 10:42 Telehealth Telehealth Telehealth Platform: Telephone Location of provider rendering services: practice address Location of patient: address on file Patient Identification confirmed using: Name, : Yes Telehealth method: voice only Patient verbally consented to treatment: Yes Patient verbally consented to billing insurance company: Yes Patient informed of any privacy concerns related to visit: Yes Minutes spent on Phone/Video with Pt.: 22 Coding Level of Care Code Tele Est Pt Level 3 (22329) Diagnoses End stage congestive heart failure I50.84 Chronic bilateral low back pain with bilateral sciatica M54.42; M54.41; G89.29 Back pain laterality: bilateral Back pain location: low back pain Sciatica laterality: bilateral sciatica Sciatica presence: with sciatica ESRD needing dialysis N18.6; Z99.2 Assessment & Plan Assessment & Plan (1) End stage congestive heart failure: Comment: 12/09/2024 ECHO EF 17% [facility] Code(s): I50.84 - End stage heart failure Category: Medical Plan: NSTEMI in early December with significantly decreased ejection fraction down to 17% with decreased wall motion. He has had no additional cardiac evaluation since then. Patient has appointment cardiology February 25. We discussed today that we will review her appointment with cardiology. (2) Chronic back pain: Code(s): M54.9 - Dorsalgia, unspecified; G89.29 - Other chronic pain Category: Medical Qualifiers: Back pain laterality: bilateral Back pain location: low back pain Sciatica laterality: bilateral sciatica Sciatica presence: with sciatica Qualified Code(s): M54.42 - Lumbago with sciatica, left side; M54.41 - Lumbago with sciatica, right side; G89.29 - Other chronic pain Plan: Ongoing chronic back pain Treating her pain with hydromorphone No adverse effects. Patient is tolerating medication well and pain is controlled. She does have an appointment with pain management to look for additional modalities of pain control Patient does not make urine. Had ordered a confirmatory opiate blood test and this currently says pending. Patient says she had some difficulty getting this drawn. Will follow-up on this when available Continue current medication. Patient has pain contract signed with me. Essentially palliative care and unless her cardiac function improved significantly she may have limited ability for improvement or prognosis greater than 6 months. However she is not on hospice due to dialysis which she has not willing to discontinue yet. Will continue to monitor prognosis and reassess goals. (3) ESRD needing dialysis: Code(s): N18.6 - End stage renal disease; Z99.2 - Dependence on renal dialysis Category: Medical Plan: Currently she remains on dialysis Stable. Follow-up with nephrology as recommended
--- OUTSIDE RECORDS SUMMARY | 2025-02-11 12:45 | XMS_ITS | Clinical Summary ---
Author Organization [facility] Address [address] [place] [address] Care Team Providers Care Screw Machine Repairer Name Role Phone Elkin Renia ESPERANZA Primary Care Provider [phone] Allergies No known active allergies Medications * [...] place to sleep or slept in a residential (including now)? No 09/03/2022 Comments Unknown Sex [...] - 99 mg/dL 09/05/2022 8:57 AM EDT [facility] Comment:Fasting: <100 mg/dL, Non-Fasting: <200 mg/dL (ADA 2005) Blood Urea Nitrogen (BUN) 66(H) 8 - 21 mg/dL 09/05/2022 8:57 AM EDT [facility] Creatinine 9.8(H) 0.4 - 1.1 mg/dL 09/05/2022 8:57 AM EDT [facility] eGFR 5(L) >59 09/05/2022 8:57 AM T [facility] Comment: CKD-EPI (2020) in mL/min/1.73 sq meters. Reported eGFR is based on the CKD-EPI equation that does not use a race coefficient as of 08/15/2022 Sodium 139 136 - 145 mmol/L 09/05/2022 8:57 AM [facility] Potassium 4.5 3.4 - 5.3 mmol/L 09/05/2022 8:57 AM [facility] Chloride 98 98 - 107 mmol/L 09/05/2022 8:57 AM [facility] CO2 20(L) 22 - 33 mmol/L 09/05/2022 8:57 AM [facility] Anion Gap 21(H) 7 - 17 09/05/2022 8:57 AM [facility] Calcium 9.4 8.7 - 10.5 mg/dL 09/05/2022 8:57 AM [facility] BUN/Creatinine Ratio 7(L) 10.0 - 25.0 Ratio 09/05/2022 8:57 AM [facility] Blood specimen (specimen) (Plasma/Serum) 09/05/2022 7:48 AM EDT 09/05/2022 8:28 AM EDT september Salena DO LAB BLOOD ORDERABLES Final Res ult HOSPITAL LAB See Below [address] [address] * (ABNORMAL) Hemoglobin A1c with Estimated Average Glucose (09/01/2022 6:06 AM EDT) Hemoglobin A1C 6.5(H) <5.7 % 09/01/2022 8:23 AM T [facility] Comment: A1c% Interpretation 5.7 - 6.0 Increase risk of diabetes 6.1 - 6.4 Higher risk of diabetes > or = 6.5 Consistent with diabetes Diabetes Care, 33(Supp 1):S1-S61, 2009 Estimated Average Glucose 140 mg/dL 09/01/2022 8:23 AM T [facility] Blood specimen (specimen) Blood specimen / Unknown 09/01/2022 6:06 AM EDT 09/01/2022 6:11 AM EDT us Janice Smalls MD LAB BLOOD ORDERABLES Final Resu lt HOSPITAL LAB See Below [address] [place] [address] from Last 3 Months or Most Recently Relevant to Health Maintenance Insurance [facility] [place]IC[facility] OUT OF NETWORK [facility] [place] MEDICARE OUT OF NETWORK Advance Directives * Full Code (Latest Code Status on File) Date Activated Date Inactivated Comments 09/01/2022 4:52 AM Care Teams Screw Machine Repairer Relationship Specialty Start Date End Date Medina Ren NP [address] [place] [address] PCP - General Family Medicine 08/31/22
--- OUTSIDE RECORDS SUMMARY | 2025-02-11 12:45 | XMS_ITS | Clinical Summary ---
Author Organization [facility] Address [address] [facility] [address] [place] [address] Phone Care Team Providers Care Rubber Heel And Sole Press Tender Name Role Phone Saroj Bustillo MD Unavailable [phone] Nicholas Yang MD Primary Care Provider [...] ischemic heart disease previously declined CABG at [facility] in 08/2023 due to perceived bedside manner of surgeon and cardiac team. Unfortunately she now has severe CAD and presented with NSTEMI at [facility] 12/10 and thought not to be a [...] 1:30 AM EDT Home Care Visit [facility] [address] [place] [phone] Catherine Herr RN SN HOME VISIT 01/23/2025 10:00 AM EDT Home Care Visit [facility] [address] [place] [phone] Catherine Herr RN SN HOME VISIT 01/19/2025 Episode Documentation Update [facility] [address] [place] [phone] 01/16/2025 4:00 AM EDT Home Care Visit [facility] [address] [place] [phone] Catherine Herr RN SN HOME VISIT 01/12/2025 Home Care Visit [facility] [address] [place] [phone] Catherine Herr, RN CASE COMMUNICATION 01/08/2025 Home Care Visit [facility] [address] [place] [phone] Catherine Herr, RN CASE COMMUNICATION 01/05/2025 7:02 PM EDT - 01/05/2025 11:00 PM EDT Emergency [facility] Emergency [address] [place] [address] John Diaz MD Discharge Disposition: Home or Self Care 01/05/2025 Procedure Pass [facility], Ct Scan - [address] [address] 01/02/2025 Home Care Visit [facility] [address] [place] [phone] Jodie Olivia, ISRA[place] CASE COMMUNICATION 12/26/2024 Home Care Visit [facility] [address] [place] [phone] Jodie Olivia RN CASE COMMUNICATION 12/25/2024 10:15 AM EDT Office Visit [facility] Palliative Care [address] [place] [address] Oneil Reyes MD Palliative care encounter (Primary Dx); Ischemic cardiomyopathy; ESRD (end stage renal disease) 12/24/2024 2:30 AM EDT Ancillary Procedure [address] [address] Aracelis Allen MD 12/24/2024 2:26 AM EDT - 12/24/2024 3:05 PM EDT Emergency [facility] Emergency [address] [place] [address] Aracelis Allen MD Daul, Adrian D, MD Discharge Disposition: Home or Self Care 12/22/2024 8:45 PM EDT Ancillary Procedure [address] [address] Lorenzo Duffy MD 12/22/2024 4:29 PM EDT - 12/23/2024 9:23 AM EDT Hospital Encounter [facility] [address] [place] [address] Lorenzo Duffy MD Ewall, Katharine E, MD Kielbasa, Shasta A, MD Discharge Disposition: Home or Self Care 12/22/2024 Episode Documentation Update [facility] [address] [place] [phone] 12/21/2024 Plan of Care Documentation [facility] [address] [place] [phone] 12/19/2024 6:00 AM EDT Home Care Visit [facility] [address] [place] [phone] Catherine Herr, ISRAEL SN OASIS START OF CARE (SOC) 12/17/2024 Orders Only [facility] [address] [place] [phone] Homehealth, Interface ProviderMD from Last 3 Months Family History Medical [...] your housing situation today? I have mary sing 12/24/2024 How many times have you move [...] Care Team (Late st Contact Info) Description 02/13/2025 2:30 AM EDT Appointment [facility] [address] [place], [place] [phone] Catherine Herr, RN [address] [place] [address] [email or web address] Health Maintenance Due Date Last Done Comments [...] 2025 , 04/16/2019, 07/23/2018 COVID-19 VACCINE ( season) 2025 10/23/2020, 10/02/2020 BLOOD PRESSURE 08/02/2025 [...] HS Gen5 330(H) 0 - 9 ng/L [facility] Blood 01/05/2025 9:39 PM EDT 01/05/2025 9:45 PM EDT us John Diaz MD LAB BLOOD ORDERABLES Final Re sult [address] [address] * CT CHEST PULMONARY ANGIOGRAM (ACUTE) (01/05/2025 [...] clinician's provided indication for this examination in [facility]: * PE suspected, high prob TECHNIQUE: Multidetector [...] clinician's provided indication for this examination in [facility]: *PE suspected, high prob TECHNIQUE: Multidetector CT [...] included. WBC 7.03 4.00 - 11.00 K/uL [facility] RBC 3.11(L) 4.00 - 5.20 M/uL [facility] HGB 8.8(L) 12.0 - 16.0 g/dL [facility] HCT 29.1(L) 36.0 - 46.0 % [facility] PLT 336 150 - 450 K/uL [facility] MCV 93.6 80.0 - 100.0 fL [facility] MCH 28.3 27.0 - 31.0 pg [facility] MCHC 30.2(L) 32.0 - 36.0 g/dL [facility] RDW 15.7(H) 11.5 - 14.5 % [facility] MPV 10.9 8.4 - 12.0 fL [facility] NRBC 0.00 0.00 /100 WBCs [facility] ABSOLUTE NRBC 0.00 0.00 K/uL [facility] DIFF METHOD Auto [facility] NEUTS 66.5 48.0 - 76.0 % [facility] LYMPHS 19.9 18.0 - 41.0 % [facility] MONOS 10.8 4.0 - 11.0 % [facility] EOS 1.8 0.0 - 5.0 % [facility] BASOS 0.6 0.0 - 1.5 % [facility] Granulocytes, immature (%) 0.4 0.0 - 0.9 % [facility] ABSOLUTE NEUTS 4.67 1.92 - 7.60 K/uL [facility] ABSOLUTE LYMPHS 1.40 0.72 - 4.10 K/uL [facility] ABSOLUTE MONOS 0.76 0.16 - 1.10 K/uL [facility] ABSOLUTE EOS 0.13 0.00 - 0.50 K/uL [facility] ABSOLUTE BASOS 0.04 0.00 - 0.15 K/uL [facility] Granulocytes, immature 0.03 0.00 - 0.09 K/uL [facility] Blood 01/05/2025 5:59 PM EDT 01/05/2025 6:19 PM EDT us John Diaz MD LAB BLOOD ORDERABLES Final Re sult Performing Organization Address City/[facility]/ZIP Co de Phone Number [address] [address] * (ABNORMAL) NT-proBNP (01/05/2025 5:59 PM EDT) Only the most recent of2 resultswithin the time period is included. NT-PROBNP >20585(H) 0 - 125 pg/mL [facility] Blood 01/05/2025 5:59 PM EDT 01/05/2025 6:19 PM EDT us John Diaz MD LAB BLOOD ORDERABLES Final Re sult Performing Organization Address City/[facility]/ZIP Co de Phone Number [address] [address] * (ABNORMAL) Basic metabolic panel (01/05/2025 5:59 PM EDT) Only the most recent of4 resultswithin the time period is included. SODIUM 137 133 - 146 mmol/L [facility] CHLORIDE 95(L) 96 - 108 mmol/L [facility] POTASSIUM 4.2 3.3 - 5.1 mmol/L [facility] CO2 24 21 - 35 mmol/L [facility] BUN 46(H) 6 - 19 mg/dL [facility] CREATININE 8.50(HH) 0.5 - 1.5 mg/dL [facility] Comment: Critical value: Results called to and read back by: Jazzy Merlos GLUCOSE 112(H) 70 - 99 mg/dL [facility] CALCIUM 9.0 8.4 - 10.3 mg/dL [facility] EGFR 5(L) >59 mL/min/1.7 3m2 [facility] Comment:Estimated glomerular filtration rate calculated using the CKD-EPI refit equation. ANION GAP 22(H) 10 - 20 mmol/L [facility] Blood 01/05/2025 5:59 PM EDT 01/05/2025 6:19 PM EDT us John Diaz MD LAB BLOOD ORDERABLES Final Re sult [address] [address] * XR CHEST PA AND LATERAL 2 VIEWS (01/05/2025 5:37 PM EDT) Anatomical Region Laterality Modality Chest Computed Radiogr aphy 01/05/2025 5:47 PM EDT Impressions 01/05/2025 5:49 PM EDT Pulmonary edema with a moderate to large left pleural effusion Narrative 01/05/2025 5:49 PM EDT XR CHEST PA AND LATERAL 2 VIEWS Referring clinician's provided indication for this examination in Epic: Dyspnea (Shortness of Breath) COMPARISON: December 22, [...] clinician's provided indication for this examination in Epic:Dyspnea (Shortness of Breath) COMPARISON: December 22, 2024 [...] BPM [facility] Atrial Rate [address] [facility] [address] Interval 160 ms [facility] QRS Duration 96 ms [facility] QT Interval 384 ms [facility] QTC Interval 474 ms [facility] P [place] 28 degrees [facility] R Wave [place] -29 degrees [facility] T Wave [place] 112 degrees [facility] 01/05/2025 5:25 PM EDT [...] John Diaz MD ECG ORDERABLES Final Result [facility] * (ABNORMAL) POCT Glucose (12/24/2024 12:40 PM EDT) Only the most recent of3 resultswithin the time period is included. Glucose, POCT 183(H) 70 - 100 mg/dL [facility] 12/24/2024 12:4 0 PM EDT 12/24/2024 12:43 PM EDT us William Casey MD POINT OF CARE TEST ORDERABLES F inal Result Performing Organization Address [facility] Co de Phone Number [address] [address] * US BEDSIDE (12/24/2024 2:27 AM EDT) [...] positive Images: Images Saved: Yes Accession Number: [id number] us Aracelis Allen MD IMG POINT OF CARE EXAMS Tila l Result * (ABNORMAL) CBC (12/23/2024 5:26 AM EDT) WBC 6.43 4.00 - 11.00 K/uL [facility] RBC 3.05(L) 4.00 - 5.20 M/uL [facility] HGB 8.8(L) 12.0 - 16.0 g/dL [facility] HCT 28.6(L) 36.0 - 46.0 % [facility] PLT 312 150 - 450 K/uL [facility] MCV 93.8 80.0 - 100.0 fL [facility] MCH 28.9 27.0 - 31.0 pg [facility] MCHC 30.8(L) 32.0 - 36.0 g/dL [facility] RDW 16.8(H) 11.5 - 14.5 % [facility] MPV 10.8 8.4 - 12.0 fL [facility] NRBC 0.00 0.00 /100 WBCs [facility] ABSOLUTE NRBC 0.00 0.00 K/uL [facility] Blood 12/23/2024 5:26 AM EDT 12/23/2024 5:45 AM EDT us Destiny Aaron MD LAB BLOOD ORDERABLES Final Result [address] [address] * (ABNORMAL) Phosphorus (12/23/2024 5:26 AM EDT) PHOSPHORUS 6.6(H) 2.7 - 4.5 mg/dL [facility] Blood 12/23/2024 5:26 AM EDT 12/23/2024 5:45 AM EDT us Destiny Aaron MD LAB BLOOD ORDERABLES Final Result [address] [address] * Magnesium (12/23/2024 5:26 AM EDT) MAGNESIUM 2.2 1.6 - 2.6 mg/dL [facility] Blood 12/23/2024 5:26 AM EDT 12/23/2024 5:45 AM EDT us Destiny Aaron MD LAB BLOOD ORDERABLES Final Result [address] [address] * US BEDSIDE (12/22/2024 8:42 PM EDT) [...] positive Images: Images Saved: Yes Accession Number: [id number] us Lorenzo Duffy MD IMG POINT OF CARE EXAMS Fin al Result * (ABNORMAL) LFTs (hepatic panel) (12/22/2024 6:28 PM EDT) ALKALINE PHOSPHATASE 185(H) 39 - 117 U/L [facility] TOTAL BILIRUBIN 0.3 0.0 - 1.2 mg/dL [facility] DIRECT BILIRUBIN <0.1 0.0 - 0.2 mg/dL [facility] Bilirubin (Indirect) NOT CALCULATED 0 - 1.5 mg/dL [facility] AST 17 0 - 37 U/L [facility] ALT 8 0 - 40 U/L [facility] TOTAL PROTEIN 7.1 6.5 - 8.0 g/dL [facility] ALBUMIN 3.3(L) 3.9 - 4.8 g/dL [facility] GLOBULIN 3.8 1 - 4.8 g/dL [facility] A/G Ratio 0.87(L) 1.00 - 4.80 RATIO [facility] Blood 12/22/2024 6:28 PM EDT 12/22/2024 6:33 PM EDT us Jaci Cedeno PA-C LAB BLOOD ORDERABLES Final Result [facility] [address] [place] [address] * XR Chest Portable (12/22/2024 6:25 PM EDT) Anatomical Region Laterality Modality Chest Computed Radiogr aphy 12/22/2024 8:15 PM EDT Impressions 12/22/2024 8:18 PM EDT Increased cardiomegaly versus pericardial effusion. Narrative 12/22/2024 8:18 PM EDT XR CHEST PORTABLE Referring clinician's provided indication for this examination in [facility]: Pneumonia; Dyspnea (Shortness of Breath) COMPARISON: XR [...] clinician's provided indication for this examination in [facility]:Pneumonia; Dyspnea (Shortness of Breath) COMPARISON: XR CHEST PORTABLE FINDINGS: Devices/Tubes/Lines: Right-sided dialysis catheter extending to the rightatrium. Lungs: Low lung volumes. Probable bibasilar atelectasis. No overtpulmonary edema. Pleura: Possible small left pleural effusion. Heart/Mediastinum: Moderate cardiomegaly appears increased. Bones/Soft Tissues: No significant abnormality. IMPRESSION: Increased cardiomegaly versus pericardial effusion. us Jaci Cedeno PA-C IMG XR CHEST Final Result from Last 3 Months Insurance * Guarantor: Phoenix Leach Account Type Relation to Patient Date of Phone Billing Address Personal/Family Self [address] [place] [address] MEDICARE PART A & B [employer] [facility] [employer] [facility] CARE MEDICARE REPLACEMENT FELA HOLLOWAY [id number] * Guarantor: Phoenix Leach Account Type Relation to Patient Date of Phone Billing Address Personal/Family Self [address] [place] [address] MEDICARE PART A & B Member Subscriber Plan / Payer (Ef fective 2018-Present) Name:Phoenix Leach Member ID:[id number] Relation to Subscriber:Self Name:Phoenix Leach Subscriber ID:[id number] Payer ID:[id number] Group ID:Not on file Type:Medicare Address: [employer] [address] [place] [id number] [place] [address] ONE CARE MEDICARE REPLACEMENT FELA HOLLOWAY [id number] * Guarantor: Phoenix Leach Account Type Relation to Patient Date of Phone Billing Address Personal/Family Self [address] [place] [address] MEDICARE PART A & B * Guarantor: Phoenix Leach Account Type Relation to Patient Date of Phone Billing Address Personal/Family Self [address] [place] [address] MEDICARE PART A & B * Guarantor: Phoenix Leach Account Type Relation to Patient Date of Phone Billing Address Personal/Family Self [address] [place] [address] MEDICARE PART A & B [facility] MEDICARE REPLACEMENT [place] [id number] * Guarantor: Phoenix Leach Account Type Relation to Patient Date of Phone Billing Address Personal/Family Self [address] [place] [address] MEDICARE PART A & B * Guarantor: Phoenix Leach Account Type Relation to Patient Date of Phone Billing Address Personal/Family Self [address] [place] [address] MEDICARE PART A & B [facility] ONE CARE MEDICARE REPLACEMENT * Guarantor: Phoenix Leach Account Type Relation to Patient Date of Phone Billing Address Personal/Family Self [address] [place] [address] MEDICARE PART A & B Member Subscriber Plan / Payer ( fective 2018-) Name:Phoenix Leach Member ID:[id number] Relation to Subscriber:Self Name:Phoenix Leach Subscriber ID:[id number] Payer ID:[id number] Group ID:Not on file Type:Medicare Address: [employer] [address] [place] [phone] [facility] CARE MEDICARE REPLACEMENT * Guarantor: Phoenix Leach Account Type Relation to Patient Date of Phone Billing Address Personal/Family Self [address] [place] [address] MEDICARE PART A & B [facility] ONE CARE MEDICARE REPLACEMENT Advance Directives For more information, please contact: [phone] (9AM - 5PM [facility], Sunday-Sunday) * DNR/DNI (No CPR/No Intubation) (Latest [...] 10:32 AM 11/03/2017 9:39 PM Care Teams Rubber Heel And Sole Press Tender Relationship Specialty Start Date End Date Nicholas Yang MD [address] [place] [address] PCP - General Family Medicine 12/17/24 Saroj Bustillo MD [address] [address] [email or web address] Horse Groomer Nephrology 05/03/21 Additional Source Comments The information contained in this document represents components of the legal health record. It is not the complete legal health record.[facility]
--- OUTSIDE RECORDS SUMMARY | 2025-02-11 12:45 | XMS_ITS | Encounter Summary ---
Author Organization [facility] Address [address] [place] [address] Phone Care Team Providers Care Net Repairer Name Role Phone Saroj Bustillo MD Unavailable [phone] Nicholas Yang MD Primary Care Provider Encounter Details Date Type Department Care Team (Late st Contact Info) Description 01/05/2025 Procedure Pass [facility], Ct Scan - [facility] [address] [place] [address] Social History Tobacco Use Types Packs/Day Years [...] 5:25 PM EDT Myrtle Gómez RN * [place] Suicide Severity Rating Scale (Screener/Recent Self-Report) Question [...] Description 02/13/2025 2:30 AM EDT Appointment [facility] [address] [place] [phone] Catherine Herr RN [address] [place] [address] [email or web address] documented as of this encounter Visit Diagnoses Not on filedocumented in this encounter Care Teams Net Repairer Relationship Specialty Start Date End Date Nicholas Yang MD [address] [place] [address] PCP - General Family Medicine 12/17/24 Saroj Bustillo MD [address] [address] [email or web address] Office Coordinator Nephrology 05/03/21 documented as of this encounter Additional Source Comments The information contained in this document represents components of the legal health record. It is not the complete legal health record.[facility]
--- OUTSIDE RECORDS SUMMARY | 2025-02-11 12:45 | XMS_ITS | Clinical Summary ---
Author Organization [facility] Address [address] [place] [address] Phone Care Team Providers Care Commuter Pilot Name Role Phone Medina Ren NP Primary Care Provider [phone] Allergies Active Allergy Reactions Criticality Noted Date [...] tablet 1 10/09/2022 Active ergocalciferol 1.25 MG (64544 UT) capsule TAKE 1 CAPSULE BY MOUTH [...] electrolytes as needed. CARE AT [facility] Last Assessment & Plan: Monitoring blood sugars closely as above. Will need to restart on her home regimen once her blood sugars have stabilized. We'll follow her BMP regularly and replete electrolytes as needed. Type 1 diabetes mellitus 11/02/2017 Overview (10/25/2020): CARE AT [facility] Last Assessment & Plan: Monitoring blood [...] Telephone [facility], - Vascular Access Center [address] [place] [address] [place] [address] Leslie Cabral 12/03/2024 3:00 PM EDT Office Visit [facility], [facility] Vascular Access Center [address] [place] [address] Nicholas Lujan MD End stage renal disease (HCC) [N18.6] (Primary Dx) 12/01/2024 Telephone [facility] Vascular Access Center [address] [place] [address] Elissa Fortune from Last 3 [...] Hemoglobin A1C 7.5(H) 4.8 - 5.9 % [employer] 06/25/2024 06/30/2024 11: 12 AM EST Narrative [facility] - 06/30/2024 Unless otherwise specified, test(s) performed at: [facility], [address] [place] [id number] TRIP RIDER: Reece Sexton M.D. For any questions, please call customer service at FREQUENCY:MONTHLY Resulting Agency Comment Specimen source: Blood Cooper Mena MD LAB BLOOD BANK TEST ORDERABLE S Final Result 77 Pieces See order comments or contact performing lab [facility], [place] from Last 3 Months or Most Recently Relevant to Health Maintenance Insurance [facility] ([id number]) [facility] Dual [facility] ([id number]) [facility] ([id number]) Care Teams Commuter Pilot Relationship Specialty Start Date End Date Medina Ren NP [address] [place] [address] [phone] PCP - General Nurse Practitioner 01/03/21
--- OUTSIDE RECORDS SUMMARY | 2025-02-11 12:45 | XMS_ITS | Clinical Summary ---
Author Organization [facility] Address [address] [place] [address] Care Team Providers Care Dental Mold Maker Name Role Phone Unavailable Primary Care Provider Unavailabl e Social History Tobacco Use Types Packs/Day Years Used Date Smoking Tobacco: Never Assessed Sex and Gender Information Value Date Recorded Sex Assigned at Not on file Gender Identity Not on file Sexual Orientation Not on file Plan of Treatment Not on file
--- OUTSIDE RECORDS SUMMARY | 2025-02-11 12:45 | XMS_ITS | Encounter Summary ---
Author Organization [facility] Address [address] [facility] [address] [place] [address] Phone Care Team Providers Care Camp Head Counselor Name Role Phone Medina Ren [employer] Primary Care Provider [phone] Encounter Details Date Type Department Care Team ([facility] st Contact Info) Description 01/02/2022 Office Communication [facility] [address] [facility] [address] [place] [phone] Jihan Wilburn, [place] [address] [place] [address] [place] [phone] Social History Tobacco Use Types Packs/Day Years [...] on filedocumented in this encounter Care Teams Camp Head Counselor Relationship Specialty Start Date End Date Medina Ren NP [address] [place] [address] [phone] PCP - General Nurse Practitioner 01/03/21 documented as of this encounter
--- OUTSIDE RECORDS SUMMARY | 2025-02-11 12:45 | XMS_ITS | Encounter Summary ---
Author Organization [facility] Address [address] [facility] [address] [place] [address] Phone Care Team Providers Care Vegetable I Farmworker Name Role Phone Medina Ren [employer] Primary Care Provider [phone] Encounter Details Date Type Department Care Team ([facility] st Contact Info) Description 08/22/2021 Office Communication [facility] [address] [facility] [address] [place] [phone] Rachelle Lui, RN [address] [place] [phone] Social History Tobacco Use Types Packs/Day Years [...] on filedocumented in this encounter Care Teams Vegetable I Farmworker Relationship Specialty Start Date End Date Medina Ren NP [address] [place] [address] [phone] PCP - General Nurse Practitioner 01/03/21 documented as of this encounter
--- OUTSIDE RECORDS SUMMARY | 2025-02-11 12:45 | XMS_ITS | Encounter Summary ---
Author Organization [facility] Address [address] [facility] [address] [place] [address] Phone Care Team Providers Care Senior Production Planner Name Role Phone Medina Ren NP Primary Care Provider Saroj Bustillo MD Unavailable [phone] Pcp, Unknown Primary Care Provider Nicholas Diane MD Primary Care Provider Encounter Details Date Type Department Care Team (Late st Contact Info) Description 05/03/2021 Procedure Pass [facility] [address] [place] [address] Social History Tobacco Use Types Packs/Day Years [...] 05/03/2021 10:16 AM Jacqui Chu RN * [place] Suicide Severity Rating Scale (Screener/Recent Self-Report) Question [...] Info) Description 02/13/2025 2:30 AM EDT Appointment [facility] [address] [place] [address] Catherine Herr, [place] [address] [place] [address] [email or web address] documented as of this encounter Visit Diagnoses Not on filedocumented in this encounter Additional Health Concerns Infection Onset Date Last Indicated Resolved Time CoV-Risk 06/12/2021 06/12/2021 06/22/2021 1:23 AM EST CoV-Risk 06/25/2021 06/25/2021 07/05/2021 1:25 AM EST documented as of this encounter Care Teams Senior Production Planner Relationship Specialty Start Date End Date Medina Ren NP PCP - General Family Medicine 01/30/21 12/02/21 Pcp, Unknown PCP - General 12/03/21 12/16/24 Nicholas Yang MD [address] [place] [address] PCP - General Family Medicine 12/17/24 Saroj Bustillo MD [address] [address] [email or web address] [email or web address] Editor Nephrology 05/03/21 documented as of this encounter Additional Source Comments The information contained in this document represents components of the legal health record. It is not the complete legal health record.[facility]
--- OUTSIDE RECORDS SUMMARY | 2025-02-11 12:45 | XMS_ITS | Encounter Summary ---
Author Organization [employer] Address [address] [place] [address] Care Team Providers Care Car Rental Agency Manager Name Role Phone Nicholas Yang MD Primary Care Provider Reason for Visit * Reason Onset Date Comments PRIOR AUTH FREESTYLE MILIND 3 PLUS SENSOR 025 Encounter Details Date Type Department Care Team (Late st Contact Info) Description 02/05/2025 Telephone Endocrinology - [facility] [address] [place] [address] Amena Up PA [address] [place] [address] Social History Tobacco Use Types Packs/Day Years [...] My Meds request: Yes -- Miller Code [id number] Name of Medication FREESTYLE MILIND 3 PLUS SENSOR Dose of Medication MILIND 3 PLUS What is the RX # from the faxed refill? N/A How does patient take this med? N/A What Pharmacy did the fax come from: [facility] Pharmacy fax #: [phone] documented in this encounter Plan of Treatment Upcoming Encounters Date Type Department Care Team (Late st Contact Info) Description 02/26/2025 10:40 AM EDT Office Visit [facility] [address] [facility] [address] [place] [phone] Elicia Chan, ESPERANZA [address] [place] [address] Dr Marie [address] [place] [address] documented as of this encounter Visit Diagnoses Not on filedocumented in this encounter Care Teams Car Rental Agency Manager Relationship Specialty Start Date End Date Nicholas Yang MD [address] [place] [address] Dr Marie [address] [place], [place] PCP - General 07/31/23 documented as of this encounter
--- OUTSIDE RECORDS SUMMARY | 2025-02-11 12:45 | XMS_ITS | Clinical Summary ---
Author Organization [address] Address [address] [place] [address] Phone Care Team Providers Care Head Waiter/Waitress Banquet Name Role Phone Nicholas Yang MD Primary [...] 1 diabetes mellitus with other specified complication ([facility] V24, [facility] V28) 20 units daily Subcutaneous 30 mL 1 5 Active ezetimibe (ZETIA) 10 mg tablet Take 1 tablet (10 mg total) by mouth 1 (one) time each day. 60 tablet 2 5 Active Espearnza 2nd Gen Pen Needle 32 gauge x needleIndication s:Type 1 diabetes mellitus with other specified complication ([facility] V24, [facility] V28) USE 4 NEEDLES WITH [...] medical therapy. Acute hypoxic respiratory fa ilure ([facility] V24, [facility] V28) 09/14/2023 Atherosclerotic heart disease [...] 911. NSTEMI (non-ST elevated myoc ardial infarction) ([facility] V24, [facility] V28) 09/14/2023 Overview (03/25/2024): Last Assessment & Plan: With three-vessel coronary artery disease and ischemic cardiomyopathy. I do not think PCI is a good idea. So far, she has no angina symptoms. Unfortunately, she is quite adamant that she will not get any care in [facility]. I will try to refer her to Dr. Almanza in [facility] as long as her insurance allowed her. Will continue high-dose statin and aspirin. Will need to repeat lipid profile. Pulmonary edema 09/14/2023 Encounters Date Type Department Care Team Description 02/05/[address] [facility] [address] [place] [phone] Amena Up PA 01/19/2025 Telephone [facility] Dr Solis [facility] Dr Evans [address] [place] [address] Nicholas Yang MD from Last 3 Months Medical History Medical History Date Comments Volume overload DX:Volume overlo ad Influenza DX:Influenza Hyperglycemia due to diabete s mellitus ([facility] V24, [facility] V28) DX:Hyperglycemia due to earlene [...] Description 02/26/2025 10:40 AM EDT Office Visit [facility] [address] [facility] [address] [place] [phone] Elicia Chan NP [address] [place] [address] [place] [phone] Health Maintenance Due Date Last Done Comments [...] patient's age to complete this topic Insurance [facility] Member Subscriber Plan / Payer (Ef fective 2022-Present) Name:Phoenix Leach Relation to Subscriber:Self Name:Phoenix Leach Payer ID:[id number] Group ID:[id number] Type:Not on file Address: [facility] [address] [address] Advance Directives Documents on File Type Date Recorded Patient Inlayer Expl [facility] Care Decision (hx) 06/24/2012 AD OBANDO DIRECTIVE Care Teams Head Waiter/Waitress Banquet Relationship Specialty Start Date End Date Nicholas Yang MD [address] [place] [address] Dr Adriana [place] PCP - General 07/31/23
--- OUTSIDE RECORDS SUMMARY | 2025-02-11 12:45 | XMS_ITS | Encounter Summary ---
Author Organization [facility] Address [address] [place] [address] Phone Care Team Providers Care Barrel Rifler Operator Name Role Phone Medina Ren PUBLIC HEALTH REPRESENTATIVE Primary Care Provider [phone] Reason for Visit * Reason Comments Med Refill Encounter Details Date Type Department Care Team (Late st Contact Info) Description 03/05/2021 Refill [facility] [address] [place] [address] Jerry Montenegro MD Social History [...] on filedocumented in this encounter Care Teams Barrel Rifler Operator Relationship Specialty Start Date End Date Medina Ren NP [address] [place] [address] PCP - General Nurse Practitioner 01/03/21 documented as of this encounter
--- OUTSIDE RECORDS SUMMARY | 2025-02-11 12:45 | XMS_ITS ---
Author Name [facility] Address [address] [place] [address] Phone [phone] Organization [facility] e, NA DOCUMENT DISCLAIMER Multiple document versions may exist, please be sure you review the latest version. The information in the [facility] Continuity of Care Document represents a summary of certain health and medical information. It may not contain the complete medical history for the patient and should be independently verified. The represented time in the document is Eastern Time. PROBLEMS Problem Code Status Onset Date Dyspnea, unspecified R06.00 Active January 22, 2025 Moderate protein-calorie malnutrition E44.0 Act nae January 06, 2025 Ischemic cardiomyopathy I25.5 Active December 08, 2024 [...] SOCIAL HISTORY Tobacco Use Status Tobacco Type Never smoker - Caregiver Characteristics Need Level ADL Type Relationship of Caregiver Requires some assistance Bathing Shoppin g Meal preparation Laundry Housekeeping M edication management Managing medical appointments Managing finances Family Characteristics of Home environment Housing Status Patient Resides With apartment with partner and reji nage son Gender and Sex Information Gender Identity Sexual [...] minutes prior to end of treatment 500 units/mary r Intravenous - push October 30, 2024 October 29, 2025 Active Heparin Sodium (Porcine) 1,000 Units/mL Systemic Bolus, Every Treatment, Total treatment minutes 240 5000 units Intravenous - push October 25, 2024 October 24, 2025 Active Iron Sucrose (Venofer) During Dialysis, 3X Week 100 mg Intravenous - push February 03, 2025 February 12, 2025 Active Midodrine HCl (Proamatine) Every Treatment 20 mg Oral January 08, 2025 January 07, 2026 Active Midodrine HCl (Proamatine) PRN 5 mg Oral December 18, 2024 December 17, 2025 Active Midodrine HCl (Proamatine) PRN hypotension 5 mg Oral October 23, 2024 October 22, 2025 Active Midodrine HCl (Proamatine) PRN hypotension 5 mg Oral October 23, 2024 October 22, 2025 Active Midodrine HCl (Proamatine) PRN hypotension 5 mg Oral November 20, 2024 November 19, 2025 Active Mircera During Dialysis, Every 2 weeks 200 mcg Intravenous - push February 03, 2025 February 02, 2026 Active Vitamin D (Calcitriol) Oral During Dialysis, Every Treatment 0.5 mcg Oral October 23, 2024 October 22, 2025 Active Iron Sucrose (Venofer) During Dialysis, 1X Week 50 mg Intravenous - push January 15, 2025 January 14, 2026 Discontinued Mircera During Dialysis, Every 2 weeks 150 mcg Intravenous - push January 20, 2025 January 19, 2026 Discontinued Home Medications Medication Instructions Dosage Route Start Date End Date [facility] albuterol sulfate 90 mcg/actuation Inhale using inhaler every four to six hours as needed 2 puff INHALATION January 17, 2025 Active Aspirin Childrens 81 mg Take by [...] 20 unit SUBCUTANEOUS December 18, 2024 Active VITAL SIGNS Post-Treatment Vital Signs Vital Sign Value Date / Time Blood Pressure-sitting 126/78 mmHg February 10, 2025 12:56 PM Heart Rate 66 beats per minute February 12:56 PM Respiratory Rate 18 breaths per minute February 10, 2025 12:56 PM Temperature 97.2 deg. F February 10 12:56 PM Weight Vital Sign Value Date / Time Estimated Dry Weight 110 kg January 29, 2025 11:59 PM Pre-Dialysis 114.20 kg February 10 12:56 PM Post-Dialysis 111.50 kg February 10 12:56 PM Other Other Value Date / Time Height 165 cm September 21, 2023 1 2:00 AM Body Mass Index 40.40 kg/m2 February 03, 2025 04:26 PM HEALTH CONCERNS Tuberculosis Testing TST Date Administered TST Date Read TST Result 09/26/2023 09/28/2023 Negative (<5) mm LAB RESULTS Hematology Result Type Result Value Relevant Referen ce Range Interpretation Date Ferritin 752 ng/mL 10 - 291 ng/mL [...] mcg/dL 155 - 355 mcg/dL Low September Ferritin 573 ng/mL 10 - 291 ng/mL High October 30 25 UIBC/TIBC 149 mcg/dL 155 - 355 mcg/dL Low October 30, 2024 TIBC (Calc) 205 mcg/dL 185 - 515 mcg/dL - October 30, 2024 Transferrin Sat. (Calc) 27 % 20 - 55 % - October 30, 2024 Hemoglobin x 3 32.1 % 36.0 [...] - 55 % - November 27, 2024 Hemoglobin x 3 30.9 % 36.0 - 48.0 % Low November Hemoglobin x 3 24 % 36.0 - 48.0 % Low December Retic HGB 31.3 pg 25.4 - 31.8 pg - December 25 025 Hemoglobin x 3 27.9 % 36.0 - 48.0 % Low December WBC (No Diff) 7.15 1000/mcL 4.80 - 10.80 1000/mcL - December 25, 2024 RDW 16.4 % 11.5 - 14.5 % High December 25 25 MCHC 30.3 g/dL 30.0 - 36.0 g/dL - December 25, 2024 MCH 29.2 pg 27.0 - 31.0 pg - December 25 025 TIBC (Calc) 221 mcg/dL 185 - 515 mcg/dL - December Transferrin Sat. (Calc) 15 % 20 - 55 % Low December 25, 2024 Iron 34 mcg/dL 30 - 160 mcg/dL - December 25, 2024 UIBC/TIBC 187 mcg/dL 155 - 355 mcg/dL - December 25, 2024 Ferritin 821 ng/mL 10 - 291 ng/mL High December 25 025 Hemoglobin x 3 28.5 % 36.0 - 48.0 % Low December Hemoglobin x 3 24.9 % 36.0 - 48.0 % Low December HGB 8.5 g/dL 12.0 - 16.0 g/dL Low January Hemoglobin x 3 25.5 % 36.0 - 48.0 % Low January 15, 2025 HGB 8.7 g/dL 12.0 - 16.0 g/dL Low January 092024 Hemoglobin x 3 26.1 % 36.0 - 48.0 % Low January 22, 2025 Ferritin 871 ng/mL 10 - 291 ng/mL High January 29, 2025 HGB 9.0 g/dL 12.0 - 16.0 g/dL Low January 102024 Hemoglobin x 3 27 % 36.0 - 48.0 % Low January 29, 2025 UIBC/TIBC 181 mcg/dL 155 - 355 mcg/dL - January 102024 Iron 12 mcg/dL 30 - 160 mcg/dL Low January Transferrin Sat. (Calc) 6 % 20 - 55 % Low January 29, 2025 TIBC (Calc) 193 mcg/dL 185 - 515 mcg/dL - January 29, 2025 Hemoglobin x 3 26.4 % 36.0 - 48.0 % Low February 05, 2025 HGB 8.8 g/dL 12.0 - 16.0 g/dL Low January 102024 Metabolic/Renal Result Type Result Value Relevant Referen ce Range Interpretation Date Hemoglobin A1c 6.6 % 4.8 - 5.9 % High September 24, 2024 BUN 90 mg/dL 6 - 19 mg/dL High November 13 BUN, Post 24 mg/dL 6 - 19 mg/dL High November 13 URR, Calc 73 % 65 - 80 % - November 13, 2024 Bicarbonate 22 mEq/L 22 - 29 mEq/L - Marilin 19, 2 025 Potassium 5.9 mEq/L 3.5 - 5.1 [...] mEq/L 22 - 29 mEq/L - December 25 Sodium 138 mEq/L 136 - 145 mEq/L - December 25, 2024 Potassium 4.5 mEq/L 3.5 - 5.1 mEq/L - December 25, 2024 Creatinine, Serum 8.56 mg/dL 0.60 - 1.30 mg/dL High December 25, 2024 BUN 52 mg/dL 6 - 19 mg/dL High January 03 URR, Calc 63 % 65 - 80 % Low January 03, 2025 BUN, Post 19 mg/dL 6 - 19 mg/dL - January 03 BUN, Post 22 mg/dL 6 - 19 mg/dL High January 15 025 URR, Calc 58 % 65 - 80 % Low January 15 BUN 53 mg/dL 6 - 19 mg/dL High January 15 Creatinine, Serum 9.46 mg/dL 0.60 - 1.30 mg/dL High January 29, 2025 Sodium 135 mEq/L 136 - 145 mEq/L Low January Bicarbonate 25 mEq/L 22 - 29 mEq/L - January 29, 2025 Potassium 4.5 mEq/L 3.5 - 5.1 mEq/L - January BUN, Post 21 mg/dL 6 - 19 mg/dL High February 03 BUN 56 mg/dL 6 - 19 mg/dL High February 03 025 URR, Calc 63 % 65 - 80 % Low February 03 HD Adequacy Result Type Result Value Relevant [...] Range Provided - December 18, 2024 wstdKt/V 2.1 No Reference Ran ge Provided - January 03, 2025 Krt/V 0.00 No Reference Ran ge Provided - January 03, 2025 spKt/V Gotch 1.16 No Reference Ran ge Provided - January 03, 2025 wstdKt/V, residual 0.0 No Reference Range Provided - January 03, 2025 wstdKt/V without residual 2.1 No Reference Range Provided - January 03, 2025 spKt/V (Daugirdas II) 1.13 No Reference Range Provided - January 03, 2025 eKt/V ([place]all) 0.95 No Reference Range Provided - January 03, 2025 spKt/V Gotch 1.00 No Reference Ran ge Provided - January 15, 2025 wstdKt/V without residual 1.9 No Reference Range Provided - January 15, 2025 Krt/V 0.00 No Reference Ran ge Provided - January 15, 2025 wstdKt/V 1.9 No Reference Ran ge Provided - January 15, 2025 wstdKt/V, residual 0.0 No Reference Range Provided - January 15, 2025 eKt/V ([place]) 0.82 No Reference Range Provided - January 15, 2025 spKt/V (Daugirdas II) 0.99 No Reference Range Provided - January 15, 2025 wstdKt/V without residual 2.1 No Reference Range Provided - February 03, 2025 wstdKt/V, residual 0.0 No Reference Range Provided - February 03, 2025 eKt/V ([place]all) 0.95 No Reference Range Provided - February 03, 2025 wstdKt/V 2.1 No Reference Ran ge Provided - February 03, 2025 spKt/V Gotch 1.16 No Reference Ran ge Provided - February 03, 2025 spKt/V (Daugirdas II) 1.13 No Reference Range Provided - February 03, 2025 Krt/V 0.00 No Reference Ran ge Provided - February 03, 2025 Bone/Mineral Result Type Result Value Relevant Referen ce Range Interpretation Date Vitamin D 25 Hydroxy 21.0 ng/mL 30.0 - 100.0 ng/mL Low June 25, 2024 PTH-Intact, Plasma 2252 pg/mL 16 - 80 pg/mL High Aug PTH-Intact, Plasma 2445 pg/mL 16 - 80 pg/mL High Sep PTH-Intact, Plasma 2521 pg/mL 16 - 80 [...] 163 U/L 35 - 104 U/L High Ju 2024 Phosphorus 6.8 mg/dL 2.6 - 4.5 mg/dL High December 25, 2024 Ca x P Product 57 0 - 54 High December 25 Corrected Ca x P Product 61 0 - 54 High December 25, 2024 PTH-Intact, Plasma 2140 pg/mL 16 - 80 pg/mL High Dec Phosphorus 6.7 mg/dL 2.6 - 4.5 mg/dL High January Calcium, Total 9.0 mg/dL 8.4 - 10.2 mg/dL - 2024 Ca x P Product 60 0 - 54 High January 29, 2025 Corrected Ca x P Product 64 0 - 54 High January 29, 2025 PTH-Intact, Plasma 1658 pg/mL 16 - 80 pg/mL High Jan Liver/Nutrition Result Type Result Value Relevant Reference Range Interpre eNPCR 1.42 No Reference Range Provided - [...] - 100 mg/dL High December 25 025 eNPCR 0.78 No Reference Range Provided - January 03, 2025 eNPCR 0.68 No Reference Range Provided - January 15, 2025 Glucose 169 mg/dL 70 - 100 mg/dL High January 29, 2025 SGPT (ALT) 6 U/L 7 - 52 U/L Low January 29 Albumin (BCG) 3.3 g/dL 3.5 - 5.2 g/dL Low January 29, 2025 eNPCR 0.70 No Reference Range Provided - February 03, 2025 Immunochemistry Result Type Result Value Relevant Reference Range Interpre tation HCV s/co ratio 0.04 0.00 - 0.79 - June 112024 Trace Elements Result Type Result Value Relevant Reference Range Interpre Aluminum < 5 mcg/L 0 - 10 mcg/L - June 25, 2024 Infectious Diseases Result Type Result Value Relevant Referen ce Range Interpretation Date HCV Ab (anti-HCV) Nonreactive No Reference R giles Provided - June 25, 2024 Hep B Surface Ab (anti-HBs) < 10 mIU/mL No Reference Range Provided - December 30, 2024 Hep B Surface Ag (HBsAg) Negative No Reference Range Provided - January 29, 2025 DIALYSIS PRESCRIPTION Conventional Hemodialysis Data Element Value Order Date/Time January 29, 2025 Frequency 3X Week Treatment Days TueThuSat Dialyzer 160NRe Optiflux Treatment Time (Total Minutes) 180 min Blood Flow Rate (mL/min) 450 mL/min Dialysate Flow Rate Manual 800 Estimated Dry Weight 110 kg Dialysate Concentrate 2.0 K, 2.50 Ca, 1. 0 Mg, 100 Dextrose ([id number]) Sodium (mEq/L) 138 mEq/L Bicarb Machine Setting [...] (mL/min) Dialysate Dialyzer Dialysis Access Meds Admin Augus 2024 Weight 112.40 kg Weight 109.80 kg 02:48:00 450 2.0 K, 2.50 Ca, 1.0 Mg, 100 Dextrose ([id number]) 160nre Optifl ux Blood Pressure-sitting 104/56 mmHg Blood Pressure-sit ting 113/62 mmHg Heart Rate 70 beats per minute Heart Rate 69 beats per minute Respiratory Rate 18 breaths per minute Respiratory Rate 18 breaths per minute Temperature 97.4 deg. F Temperature 97.3 deg. F February 07, 2025 Weight 112.80 kg Weight 110.30 kg 03:02:00 450 2.0 K, 2.50 Ca, 1.0 Mg, 100 Dextrose ([id number]) 160nre Optiflux Hemodialysis-CV Catheter-Tunneled, Chest, Right Subclavian Heparin Sodium (Porcine) 1,000 Units/mL Catheter Lock Arterial; 2000units,Arterial Red Port Heparin Sodium (Porcine) 1,000 Units/mL Catheter Lock Venous; 2000units,Venous Blue Port Heparin Sodium (Porcine) 1,000 Units/mL Systemic; 500units,Intravenous - push Heparin Sodium (Porcine) 1,000 Units/mL Systemic; 5000units,Intravenous - push Iron Sucrose (Venofer); 100mg,Intravenous - push Midodrine HCl (Proamatine); 20mg,Oral Vitamin D (Calcitriol) Oral; 0.5mcg,Oral Blood Pressure-sitting 94/57 mmHg Blood Pressure-sit ting 111/64 mmHg Heart Rate 64 beats per minute Heart Rate 56 beats per minute Respiratory Rate 18 breaths per minute Respiratory Rate 18 breaths per minute Temperature 97.2 deg. F Temperature 97.2 deg. F February 10, 2025 Weight 114.20 kg Weight 111.50 kg 02:32:00 450 2.0 K, 2.50 Ca, 1.0 Mg, 100 Dextrose ([id number]) 160nre Optiflux Hemodialysis-CV Catheter-Tunneled, Chest, Right Subclavian Heparin Sodium (Porcine) 1,000 Units/mL Catheter Lock Arterial; 2000units,Arterial Red Port Heparin Sodium (Porcine) 1,000 Units/mL Catheter Lock Venous; 2000units,Venous Blue Port Heparin Sodium (Porcine) 1,000 Units/mL Systemic; 500units,Intravenous - push Heparin Sodium (Porcine) 1,000 Units/mL Systemic; 5000units,Intravenous - push Iron Sucrose (Venofer); 100mg,Intravenous - push Midodrine HCl (Proamatine); 20mg,Oral Vitamin D (Calcitriol) Oral; 0.5mcg,Oral Blood Pressure-sitting 143/63 mmHg Blood Pressure-sit ting 126/78 mmHg Heart Rate 72 beats per minute Heart Rate 66 beats per minute Respiratory Rate 18 breaths per minute Respiratory Rate 18 breaths per minute Temperature 98.2 deg. F Temperature 97.2 deg. F
--- OUTSIDE RECORDS SUMMARY | 2025-02-11 12:46 | XMS_ITS | Clinical Summary ---
Author Organization [facility] Address [address] [place] [address] Care Team Providers Care Print Line Supervisor Name Role Phone Lucy Pop PUMP OPERATOR Primary Care Provider [phone] Source Comments PLEASE NOTE, if this patient [...] Plan of Treatment Not on file Insurance [facility] [place]ICA[place] DENTAL [facility] D[facility] Care Teams Print Line Supervisor Relationship Specialty Start Date End Date Lucy Pop FNP [address] [place] [address] PCP - General 08/06/18
--- OUTSIDE RECORDS SUMMARY | 2025-02-11 12:46 | XMS_ITS | Encounter Summary ---
Author Organization [facility] Address [address] [place] [address] Phone Care Team Providers Care Principal Investigator Name Role Phone Medina Ren SCHOOL HEALTH AIDE Primary Care Provider [phone] Reason for Visit * Reason Comments Med Refill Encounter Details Date Type Department Care Team (Late st Contact Info) Description 09/06/2022 Refill [facility] [address] [place] [address] Chan Magaña MD Social History [...] on filedocumented in this encounter Care Teams Principal Investigator Relationship Specialty Start Date End Date Medina Ren NP [address] [place] [address] PCP - General Nurse Practitioner 01/03/21 documented as of this encounter
== END 2025-02-11 12:42 | disposition home or self-care (01) ==
LOC: HO.HMCFM 10:50
PROVIDERS: PCP Family Medicine; Visit Provider Family Medicine
DX: I50.84 End stage heart failure (principal); N18.6 End stage renal disease; M54.42 Lumbago with sciatica, left side; M54.41 Lumbago with sciatica, right side; G89.29 Other chronic pain; Z99.2 Dependence on renal dialysis

== ENCOUNTER 2025-02-20 10:34 | Outpatient (AMB) | payer OTHER, SELFPAY ==
--- OUTSIDE RECORDS SUMMARY | 2025-02-13 01:30 | XMS_ITS | Encounter Summary ---
Author Organization [facility] Address [address] [place] [address] Phone Care Team Providers Care Crusher And Blender Operator Name Role Phone Saroj Bustillo MD Unavailable [phone] Nicholas Yang MD Primary Care Provider Reason for Visit * Auth/Cert (Routine) Specialty Diagnoses / Procedures Referred By Roselia barrios Referred To Contact Referral ID Status Reason Start Date Expiration Date Visits Re quested Visits Authorized [id number] 1 1 Encounter Details Date Type Department Care Team (Late st Contact Info) Description 02/13/2025 1:30 AM EDT Home Care Visit [facility] [address] [place] [address] Catherine Herr, [place] [address] [place] [address] [email or web address] SN OASIS DISCHARGE VISIT Social History Tobacco Use Types Packs/Day Years Used Date Smoking Tobacco: Former Smokeless Tobacco: Never Alcohol Use Standard Drinks/Week Comments No 0 (1 standard drink = 0.6 oz pur e alcohol) Home Health Assessment: Transportation Answer Date Recorded Lack of Transportation (Medical) No 02/13/2025 Lack of Transportation (Non-Medical) No 02/13/2025 Patient Unable or Declines to Respond No 02/13/2025 Education Answer Date Recorded Are you interested [...] PM EDT documented as of this encounter Last Filed Vital Signs Vital Sign Reading Time Taken Comments Blood Pressure 104/72 02/13/2025 3:45 PM EDT Pulse 60 02/13/2025 3:45 PM EDT Temperature 36.6 C (97.9 F) 02/13/2025 3:45 PM EDT Respiratory Rate 18 02/13/2025 3:45 PM EDT Oxygen Saturation 97% 02/13/2025 3:45 PM EDT Inhaled Oxygen Concentration - - Weight - - Height - - Body Mass Index - - documented in this encounter Plan of Treatment Not on file documented as of this encounter Visit Diagnoses Not on filedocumented in this encounter Home Health Visit - Care Plan Visit Details Visit Type -SN OASIS DISCHAR GE VISIT Discipline -Alf Problems Problem Description Start Date Status Goals Interve ntions HH - Standard of Care Disciplines: All Active Home Health Disciplines 12/19/2024 Active 1 goal linked to scheduled/documen regine intervention 2 goal interventions scheduled/document ed in this visit HH - Pain Disciplines: All Active Home Health Disciplines 12/19/2024 Active 1 goal linked to scheduled/documen regine intervention 1 goal intervention scheduled/document ed in this visit HH - Medication Management Disciplines: All Active Home Health Disciplines 12/19/2024 Active 1 goal linked to scheduled/documen regine intervention 2 goal interventions scheduled/document ed in this visit HH - Focus of Care and Teaching Disciplines: All Active Home Health Disciplines w/RD 12/19/2024 Active 1 goal linked to scheduled/documen regine intervention 1 goal intervention scheduled/document ed in this visit HH - Cardiovascular Function - Impaired Disciplines: All Active Home Health Disciplines 12/19/2024 Active 1 goal linked to scheduled/documen regine intervention 2 goal interventions scheduled/document ed in this visit Goals Goal Associated Problem Outcome Goal Met? Visit Notes HH - Achieve care management for a safe to home/community discharge from homecare HH - Standard of Care No HH - Frequency of pain interfering with patient's activity or movement will improve with activity or movement by discharge. Description: Pain will be managed over the course of care. Patient's acceptable level of pain is 3 - daily, but not constantly. HH - Pain No HH - Safe medication management, avoid unnecessary harm related to medication errors and/or interactions HH - Medication Management No HH - Communication and collaboration to achieve patient goals HH - Focus of Care and Teaching No HH - Demonstrate/verbalize management of cardiac disease, treatments, and s/s of complications HH - Cardiovascular Function - Impaired No Interventions Intervention Associated Problem/Goal Status Variance Visit Notes HH - Assess vital signs, pulse oximetry, pain, and as indicated, orthostatic vital signs Description: use agency-specific parameters Problem: - Standard of Care Goal: - Achieve care management for a safe to home/community discharge from homecare Completed HH - Assess skin integrity Problem: - Standard of Care Goal:HH - Achieve care management for a safe to home/community discharge from homecare Completed HH - Assess pain Problem: - Pain Goal: - Frequency of pain interfering with patient's activity or movement will improve with activity or movement by discharge. Completed - I/E medication management: administration, purpose, dosages, preparation, setup, scheduling, side effects, food/drug interactions, and potential complications as indicated Description: Update patient's copy of medication list as needed. Problem: - Medication Management Goal: - Safe medication management, avoid unnecessary harm related to medication errors and/or interactions Completed - Complete medication review every visit and medication reconciliation as indicated. Pharmacy information: Problem: - Medication Management Goal: - Safe medication management, avoid unnecessary harm related to medication errors and/or interactions Completed - Focus of care, teaching completed and plan for next visit Problem: - Focus of Care and Teaching Goal: - Communication and collaboration to achieve patient goals Scheduled Pt discharged from services today. all goals met. Pt medically stable at this time. Pt full understanding her circumstances and she will choose to cont HD and extend her life as long as possible. Pt denies further questions. MD aware HH - I/E cardiovascular function Description: cardiac disease management and energy conservation and prescribed activity level/restrictions Problem: - Cardiovascular Function - Impaired Goal:HH - Demonstrate/verbalize management of cardiac disease, treatments, and s/s of complications Completed HH - I/E management of fluid volume balance Problem: - Cardiovascular Function - Impaired Goal:HH - Demonstrate/verbalize management of cardiac disease, treatments, and s/s of complications Completed documented in this encounter Care Teams Crusher And Blender Operator Relationship Specialty Start Date End Date Nicholas Yang MD [address] [place] [address] PCP - General Family Medicine 12/17/24 Saroj Bustillo MD [address] [address] [email or web address] And Servicer Nephrology 05/03/21 documented as of this encounter Additional Source Comments The information contained in this document represents components of the legal health record. It is not the complete legal health record.[facility]
--- OUTSIDE RECORDS SUMMARY | 2025-02-16 20:00 | XMS_ITS ---
Author Name Jacqui Gutierrez Address [address] [place] [address] Phone [phone] Organization [facility], NA DOCUMENT DISCLAIMER Multiple document versions may exist, please be sure you review the latest version. The information in the [facility] Progress Note Document represents a providers documented clinical note containing certain health and medical information. It may not contain the complete medical history for the patient and should be independently verified. The represented time in the document is Eastern Time PROVIDER ROUNDING NOTE BASIC Patient:?[place]?Hyalee,?1980,?44y,?F Dialysis?Location:?[facility] Attending?Operations Specialist:?Jerry?Lan Service?Date:?02/17/2025 Service?Provider:?Jacqui?Matt,?VACUUM COOKER OPERATOR I?met?face?to?face?with?the?patient?today. 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 BP?Sit?Pre ??02/17/2025:?119/67 ??02/14/2025:?110/65 ??02/12/2025:?92/58 BP?Sit?Post ??02/17/2025:?118/71 ??02/14/2025:?113/57 ??02/12/2025:?108/63 Tx?Duration ??02/17/2025:?2:55 ??02/14/2025:?1:52 ??02/12/2025:?2:59 Missed?Treatments 0?-?last?30?days 0?-?last?60?days FLUID?ASSESSMENT Comments:?Continue?to?remove?fluid?as?tolerated?to?get?down?to?dry?weight Optimal?weight?discussed.? EDW?(kg) ??02/17/2025:?110.0 ??02/14/2025:?110.0 ??02/12/2025:?110.0 Weight?Pre?(kg) ??02/17/2025:?117.5 ??02/14/2025:?115.4 ??02/12/2025:?114.1 Weight?Post?(kg) ??02/17/2025:?115.1 ??02/14/2025:?113.7 ??02/12/2025:?111.6 PWV?(kg) ??02/17/2025:?5.1 ??02/14/2025:?3.7 ??02/12/2025:?1.6 UF?Rate?(mL/kg/hr) ??02/17/2025:?7.1 ??02/14/2025:?8 ??02/12/2025:?7.5 ADEQUACY?ASSESSMENT spKt/V,?URR ??02/12/2025:?1.02,?59.0 ??02/03/2025:?1.13,?63.0 ??01/15/2025:?0.99,?58.0 ACCESS?ASSESSMENT ??Access?Type:?CVCatheter ??Access?SubType:?Tunneled ??Access?Status:?Active?(In?Use)?-?09/24/2023 ??Access?Location:?Chest ??Placed:?--/--/---- Vascular?access?reviewed. ANEMIA?ASSESSMENT HGB?at?goal.?Iron?parameters?acceptable.?No?changes?indicated.? HGB,?TSAT ??02/12/2025:?9.1,?- ??02/05/2025:?8.8,?- ??01/29/2025:?9.0,?6.0 ?? Ferritin ??01/29/2025:?871.0 ??12/25/2024:?821.0 ??11/27/2024:?483.0 Mircera,?IVP?(mcg) ??02/17/2025:?225 ??02/03/2025:?200 ??01/20/2025:?150 Iron?Sucrose?(Venofer)?(mg) ??02/12/2025:?100 ??02/10/2025:?100 ??02/07/2025:?100 BMM?ASSESSMENT Comments:?PTH?trending?down PTH,?Intact ??01/29/2025:?1658.0 ??12/25/2024:?2140.0 ??11/27/2024:?2642.0 ?? Calcium,?Phosphorus ??01/29/2025:?9.0,?6.7 ??12/25/2024:?8.4,?6.8 ??11/27/2024:?9.0,?9.9 Vitamin?D?(Calcitriol)?Oral?(mcg) ??02/17/2025:?0.5 ??02/14/2025:?0.5 ??02/12/2025:?0.5 Cinacalcet?(Sensipar)?(mg) ??01/03/2025:?30 ??01/01/2025:?30 ??12/30/2024:?30 NUTRITION?ASSESSMENT Potassium?controlled.?Albumin?below?goal.?Diet?reviewed?with patient.? Potassium,?Albumin ??01/29/2025:?4.5,?3.3 ??12/25/2024:?4.5,?3.3 ??11/27/2024:?5.9,?3.9 ?? eNPCR ??02/12/2025:?0.61 ??02/03/2025:?0.7 ??01/15/2025:?0.68 PHYSICAL?EXAM Exam?Performed.?Vital?Signs?Reviewed.?Lungs?-?Clear.?CV&#160 ;-?Blood?pressure?noted.?CV?-?RRR.?EXT?-?2+?edema.?EXT?-?No?ulcers. DIAGNOSIS Chief?Complaint:?N18.6?End?stage?renal?disease Patient?is?stable. Patient?data?updated?02/18/2025?at?7:53?AM Signed?By:?Matt,?Jacqui,?VACUUM COOKER OPERATOR??on?02/18/2025?7:56:39?AM END OF DOCUMENT
--- NOTE | 2025-02-20 10:56 | A.OFFVIS_ITS ---
Vital Signs 02/20/25 10:59 Height 5 ft 6 in Weight 253 lb BMI 40.8 BP 108/78 Blood Pressure Location Rt brachial Position Sitting Respiration 16 Pulse 65 Pulse Source Pulse Oximeter Pulse Oximetry (%) 95 Oxygen Delivery Method Nasal Cannula Oxygen Flow Rate 3 Intake Visit Reasons: Lumbago with sciatica Supply Room Clerk Required: No Accompanied by: Significant Other Allergies Penicillins Allergy (Intermediate, Verified 02/20/25 11:01) compromises mental health Medication List - Last Reconciled 02/20/25 by France Chan LPN albuterol sulfate 90 mcg/actuation (Ventolin HFA) 2 puffs PO Q4H PRN 1 month aspirin 81 mg PO DAILY 90 days atorvastatin 80 mg PO DAILY 90 days bisoprolol fumarate 2.5 mg (1/2 x 5 mg) PO DAILY 90 days blood sugar diagnostic (FreeStyle Lite Strips) Use to check blood sugar 4 times daily, before mealtimes and bedtime. blood-glucose meter (FreeStyle Lite Meter kit) Use to check blood sugar 4 times daily, before mealtimes and bedtime. blood-glucose sensor ([employer] Fan 3 Sensor device) As directed blood-glucose,audiovisual production specialist,cont (FreeStyle Fan 3 Salters) As directed calcitriol 0.25 mcg PO TUTHSA cholecalciferol (vitamin D3) 50 mcg PO DAILY clonazepam 1 mg PO BID PRN diclofenac sodium 1% 4 grams topical QID 30 days ezetimibe 10 mg PO DAILY hydromorphone 4 mg PO Q6H PRN 28 days inhalational spacing device (Aerochamber MV spacer) As directed insulin aspart U-100 (Novolog FlexPen U-100 Insulin aspart) 1 sliding scale dose subcut USEASDIRECTD 30 days insulin degludec (Tresiba FlexTouch U-200 insulin) 20 units (0.1 mL) subcut BEDTIME 30 days insulin syringe-needle U-100 (BD Insulin Syringe Ultra-Fine) USE 3 TIMES A DAY lancets (IntradiemStyle Lancets) Use to check blood sugar 4 times daily, before mealtimes and bedtime. midodrine 10 mg PO TID 30 days montelukast 10 mg PO BEDTIME pantoprazole 40 mg PO DAILY 90 days pen needle, diabetic (BD Ultra-Fine Esperanza Pen Needle) As directed four times a day sennosides (senna) 8.6 mg PO BEDTIME sucroferric oxyhydroxide (Velphoro) 500 mg PO TID ticagrelor 90 mg PO BID 90 days trazodone 300 mg PO BEDTIME HPI HPI Lumbago with sciatica: Details: History of Present Illness The patient is a 44-year-old female presenting with low back pain radiating to her legs. She has a history of myocardial infarction on December 08, necessitating hospitalization and the placement of three stents. Post-procedure, she was prescribed hydromorphone for pain management. The patient has type 1 diabetes mellitus, which was previously neglected, and chronic kidney disease requiring dialysis. She reports pericardial effusion and is scheduled for a follow-up with her vascular team. She has developed opioid tolerance, having used hydromorphone previously, and manages constipation related to her gastroparesis. Pain Description - Onset: Chronic low back pain radiating to legs - Quality: Stabbing pain in the left back towards the shoulder - Location: Lower back extending to feet - Exacerbating factors: Walking and weight-bearing - Relieving factors: Hydromorphone previously prescribed - Interference: Difficulty walking due to pain Physical Exam - Sitting comfortably in wheelchair. Pain Management - Affect: Pain impacts mobility and daily activities - Analgesia: Previously prescribed hydromorphone; current pain management issues due to opioid tolerance - Adverse Effects: Constipation managed with gastroparesis - Activities of Daily Living: Pain limits walking and weight-bearing activities - Aberrant Drug Related Behaviors: No reported issues with opioid misuse PFSH Medical History 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 Autism Coronary artery disease Uncontrolled diabetes mellitus with hyperglycemia, with long-term current use of insulin Adrenal incidentaloma ESRD needing dialysis NSTEMI (non-ST elevated myocardial infarction) MDD (major depressive disorder) Hyperlipidemia due to type 1 diabetes mellitus Diabetic retinopathy Cauda equina syndrome Anasarca associated with disorder of kidney DM gastroparesis Abnormal abdominal MRI Hearing loss in right ear Hearing loss in left ear RSV infection Hypertensive urgency Diabetes mellitus type 1, uncontrolled Gastroparesis Moderate persistent asthma, uncomplicated Chronic GERD Cyclic vomiting syndrome Surgical History AVF (arteriovenous fistula) Previous back surgery Family History Father Diabetes Paternal Grandfather Diabetes Mother No known problems Social History (Updated 02/11/25 @ 10:48 by Cassidy Gardiner MA) Housing: Apartment Alcohol intake: never Patient Tobacco Use Status: Former Tobacco user e-Cigarette/Vaping Use: Never Used Second Hand Smoke Exposure: No Substance Use Type: Marijuana Advance Directives Date on File: 08/31/22 service: No Current occupational status: disabled Current occupational exposures/hazards: No Cognitive needs: No Hearing needs: No Vision needs: No Physical Exam Vital Signs: Last Vital Signs Pulse 65 02/20/25 10:59 Resp 16 02/20/25 10:59 BP 108/78 02/20/25 10:59 Pulse Ox 95 02/20/25 10:59 Oxygen Delivery Method Nasal Cannula 02/20/25 10:59 Oxygen Flow Rate 3 02/20/25 10:59 BMI result Body Mass Index 40.8 Assessment & Plan Assessment & Plan (1) Chronic back pain: Code(s): M54.9 - Dorsalgia, unspecified; G89.29 - Other chronic pain Category: Medical Qualifiers: Back pain location: low back pain Back pain laterality: bilateral Sciatica presence: with sciatica Sciatica laterality: bilateral sciatica Qualified Code(s): M54.42 - Lumbago with sciatica, left side; M54.41 - Lumbago with sciatica, right side; G89.29 - Other chronic pain Plan Plan Patient was informed and verbally consented to the use of an ambient scribe for clinic note documentation during this visit. 1. Low Back Pain With Radiculopathy - Recommend stewardship of opioid prescribing under direction from palliative care team keeping in mind GOC, current cardiopulmonary status and the need to optimize comfort. - Not a candidate for interventional management options. - Needs to continue with cautious opioid dosing keeping in mind prior tolerance, lack of prior sedation related side effects and overall goals of care. - Recommended Narcan availability and education of caregivers on administration. Discussion Notes During the visit, we discussed the patient's current pain management challenges, particularly in light of her opioid tolerance and the need for coordination between palliative and primary care. We also reviewed her cardiac history, emphasizing the importance of continued follow-up with cardiology and adherence to her medication regimen, including Brilinta. Patient Instructions - Continue taking prescribed medications as directed. Coding Level of Care Code New Pt Level 4 (75935) Diagnoses Chronic bilateral low back pain with bilateral sciatica M54.42; M54.41; G89.29 Back pain location: low back pain Back pain laterality: bilateral Sciatica presence: with sciatica Sciatica laterality: bilateral sciatica
[2025-02-20 10:59] VITALS: BP 108/78; PULSE 65; RESP 16; O2SAT 95; BMI 40.8
--- OUTSIDE RECORDS SUMMARY | 2025-02-20 12:12 | XMS_ITS | Encounter Summary ---
Author Organization [facility] Address [address] [place] [address] Phone Care Team Providers Care Hematologist Name Role Phone Medina Ren SPRAY PAINTER HELPER Primary Care Provider [phone] Reason for Visit * Reason Comments Med Refill Encounter Details Date Type Department Care Team (Late st Contact Info) Description 03/05/2021 Refill [facility] [address] [place] [address] Jerry Montenegro MD Social History [...] on filedocumented in this encounter Care Teams Hematologist Relationship Specialty Start Date End Date Medina Ren NP [address] [place] [id number] PCP - General Nurse Practitioner 01/03/21 documented as of this encounter
--- OUTSIDE RECORDS SUMMARY | 2025-02-20 12:12 | XMS_ITS | Encounter Summary ---
Author Organization [facility] Address [address] [place] [address] Phone Care Team Providers Care Relocation Associate Name Role Phone Medina Ren CONSULTANT TECHNOLOGY Primary Care Provider [phone] Encounter Details Date Type Department Care Team ([facility] st Contact Info) Description 01/02/2022 Office Communication [facility] [address] [place] [phone] Jihan Wilburn, [place] [address] [place] [phone] Social History Tobacco Use Types Packs/Day Years [...] on filedocumented in this encounter Care Teams Relocation Associate Relationship Specialty Start Date End Date Medina Ren NP [address] [place] [id number] PCP - General Nurse Practitioner 01/03/21 documented as of this encounter
--- OUTSIDE RECORDS SUMMARY | 2025-02-20 12:12 | XMS_ITS | Clinical Summary ---
Author Organization [facility] Address [address] [place] [address] Care Team Providers Care Process Trainer Name Role Phone Unavailable Primary Care Provider Unavailabl e Social History Tobacco Use Types Packs/Day Years Used Date Smoking Tobacco: Never Assessed Sex and Gender Information Value Date Recorded Sex Assigned at Not on file Gender Identity Not on file Sexual Orientation Not on file Plan of Treatment Not on file
--- OUTSIDE RECORDS SUMMARY | 2025-02-20 12:12 | XMS_ITS | Encounter Summary ---
Author Organization [facility] Address [address] [place] [address] Phone Care Team Providers Care Creel Selector Name Role Phone Saroj Bustillo MD Unavailable [phone] Nicholas Yang MD Primary Care Provider Encounter Details Date Type Department Care Team (Late st Contact Info) Description 01/05/2025 Procedure Pass [facility], Ct Scan - [facility] [address] [place] [address] Social History Tobacco Use Types Packs/Day Years [...] 5:25 PM EDT Myrtle Gómez RN * [place] Suicide Severity Rating Scale (Screener/Recent Self-Report) Question Answer Date of Assessment Author 1. Wish to be (Past 1 Month) No 025 5:25 PM EDT Myrtle Gómez, [place] 2. Non-Specific Active Suici bennie Thoughts (Past 1 Month) No 01/05/2025 5:25 PM EDT Myrtle Gómez, RN 6. Suicidal Behavior (Lifetime) No 5 5:25 PM EDT Myrtle Gómez RN documented as of this encounter Plan of Treatment Not on file documented as of this encounter Visit Diagnoses Not on filedocumented in this encounter Care Teams Creel Selector Relationship Specialty Start Date End Date Nicholas Yang MD [address] [place] [address] PCP - General Family Medicine 12/17/24 Saroj Bustillo MD 100 [facility] Ingrid [address] [address] [email or web address] Delivery Merchandiser Nephrology 05/03/21 documented as of this encounter Additional Source Comments The information contained in this document represents components of the legal health record. It is not the complete legal health record.[facility]
--- OUTSIDE RECORDS SUMMARY | 2025-02-20 12:12 | XMS_ITS | Encounter Summary ---
Author Organization [facility] Address [address] [place] [address] Care Team Providers Care Make Up Worker Name Role Phone Nicholas Yang MD Primary Care Provider Reason for Visit * Reason Onset Date Comments PRIOR AUTH FREESTYLE MILIND 3 PLUS SENSOR 025 Encounter Details Date Type Department Care Team (Late st Contact Info) Description 02/05/2025 Telephone Endocrinology - [place] [address] [place] [address] Amena Up PA [address] [place] [address] Social History Tobacco Use Types Packs/Day Years [...] My Meds request: Yes -- Miller Code [id number] Name of Medication FREESTYLE MILIND 3 PLUS SENSOR Dose of Medication MILIND 3 PLUS What is the RX # from the faxed refill? N/A How does patient take this med? N/A What Pharmacy did the fax come from: [facility] Pharmacy fax #: [phone] documented in this encounter Plan of Treatment Upcoming Encounters Date Type Department Care Team (Late st Contact Info) Description 02/26/2025 10:40 AM EDT Office Visit [facility] [address] [facility] [address] [place] [phone] Elicia Chan, ESPERANZA [address] [place] [address] [address] [place] [address] documented as of this encounter Visit Diagnoses Not on filedocumented in this encounter Care Teams Make Up Worker Relationship Specialty Start Date End Date Nicholas Yang MD [address] [place] [address] Dr [address] [place], [place] PCP - General 07/31/23 documented as of this encounter
--- OUTSIDE RECORDS SUMMARY | 2025-02-20 12:12 | XMS_ITS | Encounter Summary ---
Author Organization [facility] Address [address] [facility] [address] [place] [address] Phone Care Team Providers Care Manager Of Case Management Name Role Phone Medina Ren NP Primary Care Provider Saroj Bustillo MD Unavailable [phone] Pcp, Unknown Primary Care Provider Nicholas Diane MD Primary Care Provider Encounter Details Date Type Department Care Team (Late st Contact Info) Description 05/03/2021 Procedure Pass [facility] [address] [place] [address] Social History Tobacco Use Types Packs/Day Years [...] 05/03/2021 10:16 AM Jacqui Chu RN * [place] Suicide Severity Rating Scale (Screener/Recent Self-Report) Question [...] documented as of this encounter Care Teams Manager Of Case Management Relationship Specialty Start Date End Date Medina Ren NP PCP - General Family Medicine 01/30/21 12/02/21 Pcp, Unknown PCP - General 12/03/21 12/16/24 Nicholas Yang MD [address] [place] [address] PCP - General Family Medicine 12/17/24 Saroj Bustillo MD [address] [address] [email or web address] Partner Marketing Intern Nephrology 05/03/21 documented as of this encounter Additional Source Comments The information contained in this document represents components of the legal health record. It is not the complete legal health record.[facility]
--- OUTSIDE RECORDS SUMMARY | 2025-02-20 12:12 | XMS_ITS | Encounter Summary ---
Author Organization [facility] Address [address] [facility] [address] [place] [address] Phone Care Team Providers Care Airport Operations Crew Member Name Role Phone Medina Ren MERCHANDISE COLLECTOR Primary Care Provider [phone] Encounter Details Date Type Department Care Team ([facility] st Contact Info) Description 08/22/2021 Office Communication [facility] [address] [facility] [address] [place] [phone] Rachelle Lui, RN [address] [place] [phone] Social History Tobacco Use Types Packs/Day Years [...] on filedocumented in this encounter Care Teams Airport Operations Crew Member Relationship Specialty Start Date End Date Medina Ren NP [address] [place] [address] [phone] PCP - General Nurse Practitioner 01/03/21 documented as of this encounter
--- OUTSIDE RECORDS SUMMARY | 2025-02-20 12:12 | XMS_ITS | Clinical Summary ---
Author Organization [address] Address [address] [place] [phone] Phone Care Team Providers Care Neon Sign Installer Name Role Phone Nicholas Yang MD Primary Care Provider [phone] Allergies Active Allergy Reactions Criticality Noted Date [...] 1 diabetes mellitus with other specified complication ([facility] V24, [facility] V28) 20 units daily Subcutaneous 30 mL 1 5 Active ezetimibe (ZETIA) 10 mg tablet Take 1 tablet (10 mg total) by mouth 1 (one) time each day. 60 tablet 2 5 Active Esperanza 2nd Gen Pen Needle 32 gauge x needleIndication s:Type 1 diabetes mellitus with other specified complication ([facility] V24, [facility] V28) USE 4 NEEDLES WITH INSULIN [...] respiratory fa ilure ([facility] V24, [facility] V28) 09/14/2023 Atherosclerotic heart disease 09/14/2023 [...] 911. NSTEMI (non-ST elevated myoc ardial infarction) ([facility] V24, [facility] V28) 09/14/2023 Overview (03/25/2024): Last Assessment & Plan: With three-vessel coronary artery disease and ischemic cardiomyopathy. I do not think PCI is a good idea. So far, she has no angina symptoms. Unfortunately, she is quite adamant that she will not get any care in [facility]. I will try to refer her to Dr. Almanza in [facility] as long as her insurance allowed her. Will continue high-dose statin and aspirin. Will need to repeat lipid profile. Pulmonary edema 09/14/2023 Encounters Date Type Department Care Team Description 02/05/2025 Telephone [facility] [address] [place] [phone] Amena Up PA 01/19/2025 Telephone [facility] Dr [facility] [address] [place] [address] Nicholas Yang MD from Last 3 Months Medical History Medical History Date Comments Volume overload DX:Volume overlo ad Influenza DX:Influenza Hyperglycemia due to diabete s mellitus ([facility] V24, [facility] V28) DX:Hyperglycemia due to earlene betes [...] Description 02/26/2025 10:40 AM EDT Office Visit [facility] [address] [facility] [address] [place] [phone] Elicia Chan NP [address] [place] [address] [place] [phone] Health Maintenance Due Date Last Done Comments [...] patient's age to complete this topic Insurance [facility] Member Subscriber Plan / Payer (Ef fective 2022-Present) Name:PHOENIX JOHNSON Relation to Subscriber:Self Name:Phoenix Johnson Payer ID:[id number] Group ID:[id number] Type:Not on file Address: [place] [address] [address] [phone] Advance Directives Documents on File Type Date Recorded Patient Pheresis Nurse Expl [facility] Care Decision (hx) 06/24/2012 AD OBANDO DIRECTIVE Care Teams Neon Sign Installer Relationship Specialty Start Date End Date Nicholas Yang MD [address] [place] [address] Dr Adriana [place] PCP - General 07/31/23
--- OUTSIDE RECORDS SUMMARY | 2025-02-20 12:12 | XMS_ITS | Clinical Summary ---
Author Organization [facility] Address [address] [place] [address] Care Team Providers Care Ostomy Rn Name Role Phone Elkin Renia ESPERANZA Primary Care Provider [phone] Allergies No known active allergies Medications * [...] place to sleep or slept in a fdc (including now)? No 09/03/2022 Comments Unknown Sex [...] 09/04/2022, 09/03/2022, Additional history exists Influenza Vaccine 01/09/2025 06/05/2021, 07/23/2018 COVID-19 Vaccine ( - 2023-2 5 season) 2025 Procedures Procedure Name Priority Date/Time Associated Diagnosis Comments BASIC METABOLIC PANEL Routine 09/05/2022 7:48 AM EDT HEMOGLOBIN A1C WITH ESTIMATED AVERAGE GLUCOSE STAT 09/01/2022 6:06 AM EDT from Last 3 Months or Most Recently Relevant to Health Maintenance Results * (ABNORMAL) BASIC METABOLIC PANEL (09/05/2022 7:48 AM EDT) Glucose 150(H) 65 - 99 mg/dL 09/05/2022 8:57 AM EDT [facility] Comment:Fasting: <100 mg/dL, Non-Fasting: <200 mg/dL (ADA 2005) Blood Urea Nitrogen (BUN) 66(H) 8 - 21 mg/dL 09/05/2022 8:57 AM EDT [facility] Creatinine 9.8(H) 0.4 - 1.1 mg/dL 09/05/2022 8:57 AM EDT [facility] eGFR 5(L) >59 09/05/2022 8:57 AM T [facility] Comment: CKD-EPI (2020) in mL/min/1.73 sq meters. Reported eGFR is based on the CKD-EPI equation that does not use a race coefficient as of 08/15/2022 Sodium 139 136 - 145 mmol/L 09/05/2022 8:57 AM [facility] Potassium 4.5 3.4 - 5.3 mmol/L 09/05/2022 8:57 AM [facility] Chloride 98 98 - 107 mmol/L 09/05/2022 8:57 AM [facility] CO2 20(L) 22 - 33 mmol/L 09/05/2022 8:57 AM [facility] Anion Gap 21(H) 7 - 17 09/05/2022 8:57 AM [facility] Calcium 9.4 8.7 - 10.5 mg/dL 09/05/2022 8:57 AM [facility] BUN/Creatinine Ratio 7(L) 10.0 - 25.0 Ratio 09/05/2022 8:57 AM [facility] Blood specimen (specimen) (Plasma/Serum) 09/05/2022 7:48 AM EDT 09/05/2022 8:28 AM EDT september Salena DO LAB BLOOD ORDERABLES Final Res ult HOSPITAL LAB See Below [address] [address] * (ABNORMAL) Hemoglobin A1c with Estimated Average Glucose (09/01/2022 6:06 AM EDT) Hemoglobin A1C 6.5(H) <5.7 % 09/01/2022 8:23 AM T [facility] Comment: A1c% Interpretation 5.7 - 6.0 Increase risk of diabetes 6.1 - 6.4 Higher risk of diabetes > or = 6.5 Consistent with diabetes Diabetes Care, 33(Supp 1):S1-S61, 2009 Estimated Average Glucose 140 mg/dL 09/01/2022 8:23 AM T [facility] Blood specimen (specimen) Blood specimen / Unknown 09/01/2022 6:06 AM EDT 09/01/2022 6:11 AM EDT us Janice Smalls MD LAB BLOOD ORDERABLES Final Resu lt HOSPITAL LAB See Below [place] [address] [place] [address] from Last 3 Months or Most Recently Relevant to Health Maintenance Insurance [facility] MEDICARE OUT OF NETWORK [facility] [place]GD MEDICARE OUT OF NETWORK Advance Directives * Full Code (Latest Code Status on File) Date Activated Date Inactivated Comments 09/01/2022 4:52 AM Care Teams Ostomy Rn Relationship Specialty Start Date End Date Medina Ren NP [address] [place] [address] PCP - General Family Medicine 08/31/22
--- OUTSIDE RECORDS SUMMARY | 2025-02-20 12:12 | XMS_ITS ---
Author Name [facility] Address [address] [place] [address] Phone [phone] Organization [facility] e, NA DOCUMENT DISCLAIMER Multiple document versions may exist, please be sure you review the latest version. The information in the [facility] Continuity of Care [...] Tobacco Type Never smoker - Caregiver Characteristics No Information Available Characteristics of Home environment No Information Available Gender and Sex Information Gender Identity Sexual Orientation Female Homosexual - lesbian /morrell MEDICATIONS Prescribed Medications for Dialysis Treatments Medication Instructions Dosage Route Start Date End Date Stat us Heparin Sodium (Porcine) 1,000 Units/mL Catheter Lock [...] 1X Week 50 mg Intravenous - push February 19, 2025 February 18, 2026 Active Midodrine HCl (Proamatine) Every Treatment 20 [...] Active Mircera During Dialysis, Every 2 weeks 225 mcg Intravenous - push February 17, 2025 February 16, 2026 Active Vitamin D (Calcitriol) Oral During Dialysis, Every Treatment 0.5 mcg Oral October 23, 2024 October 22, 2025 Active Iron Sucrose (Venofer) During Dialysis, 3X Week 100 mg Intravenous - push February 03, 2025 February 12, 2025 Discontinued Iron Sucrose (Venofer) During Dialysis, 1X Week 50 mg Intravenous - push January 15, 2025 January 14, 2026 Discontinued Mircera During Dialysis, Every 2 weeks 200 mcg Intravenous - push February 03, 2025 February 02, 2026 Discontinued Mircera During Dialysis, Every 2 weeks 150 mcg Intravenous - push January 20, 2025 January 19, 2026 Discontinued Home Medications Medication Instructions Dosage Route Start Date End Date Stat albuterol sulfate 90 mcg/actuation Inhale using inhaler every four to six hours as needed 2 puff INHALATION February 17, 2025 Active Aspirin Childrens 81 mg [...] Sign Value Date / Time Blood Pressure-sitting 109/64 mmHg February 19, 2025 12:43 PM Heart Rate 59 beats per minute February 12:43 PM Respiratory Rate 18 breaths per minute February 19, 2025 12:43 PM Temperature 98.0 deg. F February 19 12:43 PM Weight Vital Sign Value Date / Time Estimated Dry Weight 110 kg February 11:59 PM Pre-Dialysis 117.70 kg February 19 12:43 PM Post-Dialysis 114.90 kg February 19 12:43 PM Other Other Value Date / Time [...] - 55 % - October 30, 2024 Ferritin 483 ng/mL 10 - 291 [...] 25.4 - 31.8 pg - December 25 Hemoglobin x 3 27.9 % 36.0 - [...] 48.0 % Low December Hemoglobin x 3 25.5 % 36.0 - [...] 12.0 - 16.0 g/dL Low January 102024 HGB 9.1 g/dL 12.0 - 16.0 g/dL Low Septembe r 2024 Hemoglobin x 3 27.3 % 36.0 - 48.0 % Low Septemb er 2024 Hemoglobin x 3 31.5 % 36.0 - 48.0 % Low Septemb er 2024 HGB 10.5 g/dL 12.0 - 16.0 g/dL Low Septembe r 2024 Metabolic/Renal Result Type Result Value Relevant Referen ce Range Interpretation Date Hemoglobin A1c 6.6 % 4.8 - 5.9 % High September 24, 2024 Bicarbonate 22 mEq/L 22 - 29 [...] 6 - 19 mg/dL High January 15 URR, Calc 58 % 65 - 80 [...] 6 - 19 mg/dL High February 03 URR, Calc 63 % 65 - 80 % Low February 03 BUN, Post 18 mg/dL 6 - 19 mg/dL - February BUN 44 mg/dL 6 - 19 mg/dL High February URR, Calc 59 % 65 - 80 % Low February 12, 2025 HD Adequacy Result Type Result Value Relevant Referen ce Range Interpretation Date Krt/V 0.00 No Reference Ran ge Provided - September 10, 2024 Krt/V 0.00 No Reference Ran ge Provided - September 17, 2024 Krt/V 0.00 No Reference Ran ge Provided - September 22, 2024 Krt/V 0.00 No Reference Ran ge Provided - October 15, 2024 Krt/V 0.00 No Reference Ran ge Provided - November 13, 2024 wstdKt/V without [...] Ran ge Provided - February 03, 2025 Krt/V 0.00 No Reference Ran ge Provided - February 12, 2025 wstdKt/V without residual 2.0 No Reference Range Provided - February 12, 2025 wstdKt/V 2.0 No Reference Ran ge Provided - February 12, 2025 eKt/V (Tattersall) 0.86 No Reference Range Provided - February 12, 2025 wstdKt/V, residual 0.0 No Reference Range Provided - February 12, 2025 spKt/V (Daugirdas II) 1.02 No Reference Range Provided - February 12, 2025 spKt/V Got 1.05 No Reference Ran ge Provided - February 12, 2025 Bone/Mineral Result Type Result Value Relevant [...] Type Result Value Relevant Reference Range Interpre Albumin (BCG) 3.9 g/dL 3.5 - 5.2 [...] December 25 025 eNPCR 0.78 No Reference Ran ge Provided - January 03, 2025 eNPCR 0.68 No Reference Ran ge Provided - January 15, 2025 Glucose 169 mg/dL 70 - 100 mg/dL High January 29, 2025 SGPT (ALT) 6 U/L 7 - 52 U/L Low January 29 Albumin (BCG) 3.3 g/dL 3.5 - 5.2 g/dL Low January 29, 2025 eNPCR 0.70 No Reference Ran ge Provided - February 03, 2025 eNPCR 0.61 No Reference Ran ge Provided - February 12, 2025 Immunochemistry Result Type Result Value Relevant Reference Range Interpre tation Date HCV s/co ratio 0.04 0.00 - 0.79 [...] Conventional Hemodialysis Data Element Value Order Date/Time February 14, 2025 Frequency 3X Week Treatment Days TueThuSat Dialyzer FX CorAL 60 Treatment Time (Total Minutes) 180 min Blood Flow Rate (mL/min) 450 mL/min Dialysate Flow Rate Manual 800 Estimated Dry Weight 110 kg Dialysate Concentrate 2.0 K, 2.50 Ca, 1. 0 Mg, 100 Dextrose ([id number]) Sodium (mEq/L) 138 mEq/L Bicarb Machine Setting [...] (mL/min) Dialysate Dialyzer Dialysis Access Meds Admin [facility] 2024 Weight 115.40 kg Weight 113.70 kg 01:52:00 430 2.0 K, 2.50 Ca, 1.0 Mg, 100 Dextrose ([id number]) FX CorAL 60 Blood Pressure-sitting 110/65 mmHg Blood Pressure-sit ting 113/57 mmHg Heart Rate 59 beats per minute Heart Rate 59 beats per minute Respiratory Rate 18 breaths per minute Respiratory Rate 18 breaths per minute Temperature 98.2 deg. F Temperature 97.9 deg. F February 17, 2025 Weight 117.50 kg Weight 115.10 kg 02:55:00 440 2.0 K, 2.50 Ca, 1.0 Mg, 100 Dextrose ([id number]) FX CorAL 60 Hemodialysis-CV Catheter-Tunneled, Chest, Right Subclavian Heparin Sodium (Porcine) 1,000 Units/mL Catheter Lock Arterial; 2000units,Arterial Red [place] Heparin Sodium (Porcine) 1,000 Units/mL Catheter Lock Venous; 2000units,Venous Blue [place] Heparin Sodium (Porcine) 1,000 Units/mL Systemic; 500units,Intravenous - push Heparin Sodium (Porcine) 1,000 Units/mL Systemic; 5000units,Intravenous - push Midodrine HCl (Proamatine); 5mg,Oral Midodrine HCl (Proamatine); 20mg,Oral Mircera; 225mcg,Intravenous - push Vitamin D (Calcitriol) Oral; 0.5mcg,Oral Blood Pressure-sitting 119/67 mmHg Blood Pressure-sit ting 118/71 mmHg Heart Rate 67 beats per minute Heart Rate 60 beats per minute Respiratory Rate 18 breaths per minute Respiratory Rate 18 breaths per minute Temperature 97.0 deg. F Temperature 97.8 deg. F February 19, 2025 Weight 117.70 kg Weight 114.90 kg 03:01:00 450 2.0 K, 2.50 Ca, 1.0 Mg, 100 Dextrose ([id number]) FX CorAL 60 Hemodialysis-CV Catheter-Tunneled, Chest, Right Subclavian Heparin Sodium (Porcine) 1,000 Units/mL Catheter Lock Arterial; 2000units,Arterial [place] Heparin Sodium (Porcine) 1,000 Units/mL Catheter Lock Venous; 2000units,Venous [place] Heparin Sodium (Porcine) 1,000 Units/mL Systemic; 500units,Intravenous - push Heparin Sodium (Porcine) 1,000 Units/mL Systemic; 5000units,Intravenous - push Iron Sucrose (Venofer); 50mg,Intravenous - push Midodrine HCl (Proamatine); 20mg,Oral Vitamin D (Calcitriol) Oral; 0.5mcg,Oral Blood Pressure-sitting 103/62 mmHg Blood Pressure-sit ting 109/64 mmHg Heart Rate 58 beats per minute Heart Rate 59 beats per minute Respiratory Rate 14 breaths per minute Respiratory Rate 18 breaths per minute Temperature 97.5 deg. F Temperature 98.0 deg. F
--- OUTSIDE RECORDS SUMMARY | 2025-02-20 12:12 | XMS_ITS | Clinical Summary ---
Author Organization [facility] Address [address] [place] [address] Phone Care Team Providers Care Electronic Typesetting Machine Operator Name Role Phone Medina Ren NP Primary Care Provider [phone] Allergies Active Allergy Reactions Criticality Noted Date [...] tablet 1 10/09/2022 Active ergocalciferol 1.25 MG (12236 UT) capsule TAKE 1 CAPSULE BY MOUTH [...] and replete electrolytes as needed. CARE AT [facility] Last Assessment & Plan: Monitoring blood sugars closely as above. Will need to restart on her home regimen once her blood sugars have stabilized. We'll follow her BMP regularly and replete electrolytes as needed. Type 1 diabetes mellitus 11/02/2017 Overview (10/25/2020): CARE AT [facility] Last Assessment & Plan: Monitoring [...] Encounters Date Type Department Care Team Description 02/12/2025 Documentation Only [facility] [address] [place] [address] [place] [address] Afia Bethea 12/04/2024 Telephone [facility] [address] [place] [address] Leslie Cabral 12/03/2024 3:00 PM EDT Office Visit [facility] [address] [place] [phone] Nicholas Lujan MD End stage renal disease (HCC) [N18.6] (Primary Dx) 12/01/2024 Telephone [facility] [address] [place] [address] Elissa Fortune from Last 3 Months [...] Hemoglobin A1C 7.5(H) 4.8 - 5.9 % Sp[facility] 06/25/2024 06/30/2024 11: 12 AM EST Narrative [facility] - 06/30/2024 Unless otherwise specified, test(s) performed at: [facility], [address] [place] [id number] CANDY SUPERVISOR: Reece Sexton M.D. For any questions, please call customer service at FREQUENCY:MONTHLY Resulting Agency Comment Specimen source: Blood us Cooper Mena MD LAB BLOOD BANK TEST ORDERABLE S Final Result [employer] See order comments or contact performing lab [facility], MD from Last 3 Months or Most Recently Relevant to Health Maintenance Insurance [facility] ([id number]) [facility] Dual SNP ([id number]) [facility] ([id number]) Care Teams Electronic Typesetting Machine Operator Relationship Specialty Start Date End Date Medina Ren NP [address] [place] [address] [place] [address] PCP - General Nurse Practitioner 01/03/21
--- OUTSIDE RECORDS SUMMARY | 2025-02-20 12:13 | XMS_ITS | Encounter Summary ---
Author Organization [facility] Address [address] [place] [address] Phone Care Team Providers Care Mold Breaker Name Role Phone Medina Ren PRIMARY HEALTH ORGANISATION MANAGER Primary Care Provider [phone] Reason for Visit * Reason Comments Med Refill Encounter Details Date Type Department Care Team (Late st Contact Info) Description 09/06/2022 Refill [facility] [address] [place] [address] Chan Magaña MD Social History [...] on filedocumented in this encounter Care Teams Mold Breaker Relationship Specialty Start Date End Date Medina Ren NP [address] [place] [address] PCP - General Nurse Practitioner 01/03/21 documented as of this encounter
--- OUTSIDE RECORDS SUMMARY | 2025-02-20 12:13 | XMS_ITS | Clinical Summary ---
Author Organization [facility] Address [address] [place] [address] Care Team Providers Care Needle Control Cheniller Name Role Phone Lucy Pop TAPE KELLER OPERATOR Primary Care Provider [phone] Source Comments PLEASE NOTE, if this patient [...] of Treatment Not on file Insurance [facility] [place] D[facility]AL [facility] Care Teams Needle Control Cheniller Relationship Specialty Start Date End Date Lucy Pop FNP [address] [place] [address] PCP - General 08/06/18
--- OUTSIDE RECORDS SUMMARY | 2025-02-20 12:13 | XMS_ITS | Clinical Summary ---
Author Organization [facility] Address [address] [facility] [address] [place] [address] Phone Care Team Providers Care Candy Spreader Name Role Phone Saroj Bustillo MD Unavailable [phone] Nicholas Yang MD Primary Care Provider [...] ischemic heart disease previously declined CABG at [facility] in 08/2023 due to perceived bedside manner of surgeon and cardiac team. Unfortunately she now has severe CAD and presented with NSTEMI at [facility] 12/10 and thought not to be a [...] Encounters Date Type Department Care Team Description 02/13/2025 1:30 AM EDT Home Care Visit [facility] [address] [place] [phone] Catherine Herr RN SN OASIS DISCHARGE VISIT 01/30/2025 1:30 AM EDT Home Care Visit [facility] [address] [place] [phone] Catherine Herr RN SN HOME VISIT 01/23/2025 10:00 AM EDT Home Care Visit [facility] [address] [place] [phone] Catherine Herr RN SN HOME VISIT 01/19/2025 Episode Documentation Update [facility] [address] [place] [phone] 01/16/2025 4:00 AM EDT Home Care Visit [facility] [address] [place] [phone] Catherine Herr, ISRAEL SN HOME VISIT 01/12/2025 Home Care Visit [facility] [address] [place] [phone] Catherine Herr, RN CASE COMMUNICATION 01/08/2025 Home Care Visit [facility] [address] [place] [phone] Catherine Herr, RN CASE COMMUNICATION 01/05/2025 7:02 PM EDT - 01/05/2025 11:00 PM EDT Emergency [facility] [address] [place] [phone] John Diaz MD Discharge Disposition: Home or Self Care 01/05/2025 Procedure Pass [facility], Ct Scan - [address] [address] 01/02/2025 Home Care Visit [facility] [address] [place] [phone] Jodie Olivia RN CASE COMMUNICATION 12/26/2024 Home Care Visit [facility] [address] [place] [phone] Jodie Olivia RN CASE COMMUNICATION 12/25/2024 10:15 AM EDT Office Visit [facility] Palliative Care [address] [place] [phone] Oneil Reyes MD Palliative care encounter (Primary Dx); Ischemic cardiomyopathy; ESRD (end stage renal disease) 12/24/2024 2:30 AM EDT Ancillary Procedure [address] [address] Aracelis Allen MD 12/24/2024 2:26 AM EDT - 12/24/2024 3:05 PM EDT Emergency [facility] Emergency [address] [place] [phone] Aracelis Allen MD Daul, Adrian D, MD Discharge Disposition: Home or Self Care 12/22/2024 8:45 PM EDT Ancillary Procedure [address] [address] Lorenzo Duffy MD 12/22/2024 4:29 PM EDT - 12/23/2024 9:23 AM EDT Hospital Encounter [facility] [address] [place] [address] Lorenzo Duffy MD Ewall, MD Sohail Valentine Shasta A, MD Discharge Disposition: Home or Self Care 12/22/2024 Episode Documentation Update [facility] [address] [place] [phone] 12/21/2024 Plan of Care Documentation [facility] [address] [place] [phone] 12/19/2024 6:00 AM EDT Home Care Visit [facility] [address] [place] [phone] Catherine Herr, ISRAEL SN OASIS START OF CARE (SOC) 12/17/2024 Orders Only [facility] [address] [place] [phone] Homehealth, Interface ProviderMD from Last 3 Months [...] 02/13/2025 3:45 PM EDT Inhaled Oxygen Concentration 6% 11/02/2017 7 :15 AM EDT Weight 107 kg (236 lb) 01/05/2025 5:24 PM EDT Height 167.6 cm (5' 6 ) 01/05/2025 5:24 PM EDT Body Mass Index 38.09 01/05/2025 5:24 PM EDT Plan of Treatment Health Maintenance Due [...] - season) 2025 10/23/2020, 10/02/2020 BLOOD PRESSURE 08/13/2025 02/13/2025 Adult Td,Tdap Booster 07/23/2028 07/23/2018, 013 HEPATITIS [...] HS Gen5 330(H) 0 - 9 ng/L [facility] Blood 01/05/2025 9:39 PM EDT 01/05/2025 9:45 PM EDT us John Diaz MD LAB BLOOD ORDERABLES Final Re sult [address] [address] * CT CHEST PULMONARY ANGIOGRAM (ACUTE) (01/05/2025 [...] clinician's provided indication for this examination in [facility]: * PE suspected, high prob TECHNIQUE: [...] clinician's provided indication for this examination in [facility]: *PE suspected, high prob TECHNIQUE: Multidetector [...] included. WBC 7.03 4.00 - 11.00 K/uL [facility] RBC 3.11(L) 4.00 - 5.20 M/uL [facility] HGB 8.8(L) 12.0 - 16.0 g/dL [facility] HCT 29.1(L) 36.0 - 46.0 % [facility] PLT 336 150 - 450 K/uL [facility] MCV 93.6 80.0 - 100.0 fL [facility] MCH 28.3 27.0 - 31.0 pg [facility] MCHC 30.2(L) 32.0 - 36.0 g/dL [facility] RDW 15.7(H) 11.5 - 14.5 % [facility] MPV 10.9 8.4 - 12.0 fL [facility] NRBC 0.00 0.00 /100 WBCs [facility] ABSOLUTE NRBC 0.00 0.00 K/uL [facility] DIFF METHOD Auto [facility] NEUTS 66.5 48.0 - 76.0 % [facility] LYMPHS 19.9 18.0 - 41.0 % [facility] MONOS 10.8 4.0 - 11.0 % [facility] EOS 1.8 0.0 - 5.0 % [facility] BASOS 0.6 0.0 - 1.5 % [facility] Granulocytes, immature (%) 0.4 0.0 - 0.9 % [facility] ABSOLUTE NEUTS 4.67 1.92 - 7.60 K/uL [facility] ABSOLUTE LYMPHS 1.40 0.72 - 4.10 K/uL [facility] ABSOLUTE MONOS 0.76 0.16 - 1.10 K/uL [facility] ABSOLUTE EOS 0.13 0.00 - 0.50 K/uL [facility] ABSOLUTE BASOS 0.04 0.00 - 0.15 K/uL [facility] Granulocytes, immature 0.03 0.00 - 0.09 K/uL [facility] Blood 01/05/2025 5:59 PM EDT 01/05/2025 6:19 PM EDT us John Diaz MD LAB BLOOD ORDERABLES Final Re sult Performing Organization Address City/[facility]/ZIP Co de Phone Number [address] [address] * (ABNORMAL) NT-proBNP (01/05/2025 5:59 PM EDT) Only the most recent of2 resultswithin the time period is included. NT-PROBNP >42946(H) 0 - 125 pg/mL [facility] Blood 01/05/2025 5:59 PM EDT 01/05/2025 6:19 PM EDT us John Diaz MD LAB BLOOD ORDERABLES Final Re sult Performing Organization Address City/[facility]/ZIP Co de Phone Number [address] [address] * (ABNORMAL) Basic metabolic panel (01/05/2025 5:59 PM EDT) Only the most recent of4 resultswithin the time period is included. SODIUM 137 133 - 146 mmol/L [facility] CHLORIDE 95(L) 96 - 108 mmol/L [facility] POTASSIUM 4.2 3.3 - 5.1 mmol/L [facility] CO2 24 21 - 35 mmol/L [facility] BUN 46(H) 6 - 19 mg/dL [facility] CREATININE 8.50(HH) 0.5 - 1.5 mg/dL [facility] Comment: Critical value: Results called to and read back by: Jazzy Merlos GLUCOSE 112(H) 70 - 99 mg/dL [facility] CALCIUM 9.0 8.4 - 10.3 mg/dL [facility] EGFR 5(L) >59 mL/min/1.7 3m2 [facility] Comment:Estimated glomerular filtration rate calculated using the CKD-EPI refit equation. ANION GAP 22(H) 10 - 20 mmol/L [facility] Blood 01/05/2025 5:59 PM EDT 01/05/2025 6:19 PM EDT us John Diaz MD LAB BLOOD ORDERABLES Final Re sult [facility] [address] [place] [address] * XR CHEST PA AND LATERAL 2 [...] clinician's provided indication for this examination in [facility]:Dyspnea (Shortness of Breath) COMPARISON: December 22, [...] BPM [facility] Atrial Rate 92 BPM [facility] KS Interval 160 ms [facility] QRS Duration 96 ms [facility] QT Interval 384 ms [facility] QTC Interval 474 ms [facility] P [place] 28 degrees [facility] R Wave [place] -29 degrees [facility] T Wave [place] 112 degrees [facility] 01/05/2025 5:25 PM EDT [...] the time period is included. Pathologist [facility] [place] Glucose, POCT 183(H) 70 - 100 mg/dL [facility] 12/24/2024 12:4 0 PM EDT 12/24/2024 12:43 PM EDT us William Casey MD POINT OF CARE TEST ORDERABLES F inal Result Performing Organization Address City/[facility] Co de Phone Number [address] [address] * US BEDSIDE (12/24/2024 2:27 AM EDT) [...] positive Images: Images Saved: Yes Accession Number: [id number] us Aracelis Allen MD IMG POINT OF CARE EXAMS Tila l Result * (ABNORMAL) CBC (12/23/2024 5:26 AM EDT) Pathologist [facility] [place] WBC 6.43 4.00 - 11.00 K/uL [facility] RBC 3.05(L) 4.00 - 5.20 M/uL [facility] HGB 8.8(L) 12.0 - 16.0 g/dL [facility] HCT 28.6(L) 36.0 - 46.0 % [facility] PLT 312 150 - 450 K/uL [facility] MCV 93.8 80.0 - 100.0 fL [facility] MCH 28.9 27.0 - 31.0 pg [facility] MCHC 30.8(L) 32.0 - 36.0 g/dL [facility] RDW 16.8(H) 11.5 - 14.5 % [facility] MPV 10.8 8.4 - 12.0 fL [facility] NRBC 0.00 0.00 /100 WBCs [facility] ABSOLUTE NRBC 0.00 0.00 K/uL [facility] Blood 12/23/2024 5:26 AM EDT 12/23/2024 5:45 AM EDT us Destiny Aaron MD LAB BLOOD ORDERABLES Final Result Performing Organization Address City/[facility]/ZIP Co de Phone Number [address] [address] * (ABNORMAL) Phosphorus (12/23/2024 5:26 AM EDT) PHOSPHORUS 6.6(H) 2.7 - 4.5 mg/dL [facility] Blood 12/23/2024 5:26 AM EDT 12/23/2024 5:45 AM EDT us Destiny Aaron MD LAB BLOOD ORDERABLES Final Result [address] [address] * Magnesium (12/23/2024 5:26 AM EDT) MAGNESIUM 2.2 1.6 - 2.6 mg/dL [facility] Blood 12/23/2024 5:26 AM EDT 12/23/2024 5:45 AM EDT us Destiny Aaron MD LAB BLOOD ORDERABLES Final Result [facility] [address] [place] [address] * US BEDSIDE (12/22/2024 8:42 PM EDT) [...] positive Images: Images Saved: Yes Accession Number: [id number] Lorenzo Duffy MD IMG POINT OF CARE EXAMS Fin al Result * (ABNORMAL) LFTs (hepatic panel) (12/22/2024 6:28 PM EDT) ALKALINE PHOSPHATASE 185(H) 39 - 117 U/L [facility] TOTAL BILIRUBIN 0.3 0.0 - 1.2 mg/dL [facility] DIRECT BILIRUBIN <0.1 0.0 - 0.2 mg/dL [facility] Bilirubin (Indirect) NOT CALCULATED 0 - 1.5 mg/dL [facility] AST 17 0 - 37 U/L [facility] ALT 8 0 - 40 U/L [facility] TOTAL PROTEIN 7.1 6.5 - 8.0 g/dL [facility] ALBUMIN 3.3(L) 3.9 - 4.8 g/dL [facility] GLOBULIN 3.8 1 - 4.8 g/dL [facility] A/G Ratio 0.87(L) 1.00 - 4.80 RATIO [facility] Blood 12/22/2024 6:28 PM EDT 12/22/2024 6:33 PM EDT us Jaci Cedeno PA-C LAB BLOOD ORDERABLES Final Result [address] [address] * XR Chest Portable (12/22/2024 6:25 PM EDT) Anatomical Region Laterality Modality Chest Computed Radiogr aphy 12/22/2024 8:15 PM EDT Impressions 12/22/2024 8:18 PM EDT Increased cardiomegaly versus pericardial effusion. Narrative 12/22/2024 8:18 PM EDT XR CHEST PORTABLE Referring clinician's provided indication for this examination in [facility]: Pneumonia; Dyspnea (Shortness of Breath) COMPARISON: [...] clinician's provided indication for this examination in [facility]:Pneumonia; Dyspnea (Shortness of Breath) COMPARISON: XR [...] [address] [place] [address] MEDICARE PART A & B CARE MEDICARE REPLACEMENT FELA HOLLOWAY [id number] * Guarantor: Phoenix Leach Account Type Relation to Patient Date of Phone Billing Address Personal/Family Self [address] [place] [address] MEDICARE PART A & B [id number] ONE CARE MEDICARE REPLACEMENT FELA HOLLOWAY [id number] * Guarantor: Phoenix Leach Account Type Relation to Patient Date of Phone Billing Address Personal/Family Self [address] [place] [address] MEDICARE PART A & B * Guarantor: Phoenix Leach Account Type Relation to Patient Date of Phone Billing Address Personal/Family Self [address] [place] [address] MEDICARE PART A & B * Guarantor: Phoenix Leach Account Type Relation to Patient Date of Phone Billing Address Personal/Family Self [address] [place] [address] MEDICARE PART A & B Member Subscriber Plan / Payer (Ef fective 2018-Present) Name:Haylee, Phoenix Member ID:[id number] Relation to Subscriber:Self Name:Phoenix Leach Subscriber ID:[id number] Payer ID:[id number] Group ID:Not on file Type:Medicare Address: [employer] [address] ONE CARE MEDICARE REPLACEMENT FELA HOLLOWAY [facility] * Guarantor: Phoenix Leach Account Type Relation to Patient Date of Phone Billing Address Personal/Family Self [address] [place] [address] MEDICARE PART A & B * Guarantor: Phoenix Leach Account Type Relation to Patient Date of Phone Billing Address Personal/Family Self [address] [place] [address] MEDICARE PART A & B Member Subscriber Plan / Payer (Ef fective 2018-Present) Name:Phoenix Leach Member ID:[id number] Relation to Subscriber:Self Name:Phoenix Leach Subscriber ID:[id number] Payer ID:[id number] Group ID:Not on file Type:Medicare Address: [employer] [address] ONE CARE MEDICARE REPLACEMENT * Guarantor: Phoenix Leach Account Type Relation to Patient Date of Phone Billing Address Personal/Family Self [address] [place] [address] MEDICARE PART A & B [facility] CARE MEDICARE REPLACEMENT * Guarantor: Phoenix Leach Account Type Relation to Patient Date of Phone Billing Address Personal/Family Self [address] [place] [address] MEDICARE PART A & B [facility] ONE CARE MEDICARE REPLACEMENT Advance Directives For more information, please contact: [phone] (9AM - 5PM [facility], Sunday-Sunday) * DNR/DNI (No CPR/No Intubation) (Latest [...] 10:32 AM 11/03/2017 9:39 PM Care Teams Candy Spreader Relationship Specialty Start Date End Date Nicholas Yang MD [address] [place] [address] PCP - General Family Medicine 12/17/24 Saroj Bustillo MD [address] [address] [email or web address] Dispensing Operator Nephrology 05/03/21 Additional Source Comments The information contained in this document represents components of the legal health record. It is not the complete legal health record.[facility]
== END 2025-02-20 11:30 | disposition home or self-care (01) ==
LOC: HO.PMC 10:35
PROVIDERS: PCP Family Medicine; Visit Provider Internal Medicine
DX: M54.42 Lumbago with sciatica, left side (principal); M54.41 Lumbago with sciatica, right side; G89.29 Other chronic pain
CPT/HCPCS: 99204

== ENCOUNTER → 2025-02-20 10:34 | Outpatient (BNVA) | payer OTHER, SELFPAY | PROVIDERS: PCP Family Medicine; Visit Provider Internal Medicine | DX: M54.42 Lumbago with sciatica, left side (principal); M54.41 Lumbago with sciatica, right side; G89.29 Other chronic pain | CPT/HCPCS: 99202 ==

== ENCOUNTER → 2025-03-11 23:59 | Outpatient (BNV) | payer OTHER, SELFPAY | PROVIDERS: PCP Family Medicine; Visit Provider Internal Medicine Nephrology | DX: N18.6 End stage renal disease (principal) | CPT/HCPCS: 90961 ==

== ENCOUNTER → 2025-04-11 23:59 | Outpatient (BNV) | payer OTHER, SELFPAY | PROVIDERS: PCP Family Medicine; Visit Provider Internal Medicine Nephrology | DX: N18.6 End stage renal disease (principal) | CPT/HCPCS: 90961 ==

== ENCOUNTER 2025-06-05 10:24 | Outpatient (AMB) | payer OTHER, SELFPAY ==
--- NOTE | 2025-06-05 10:30 | MHC.PC.OV ---
Vital Signs 06/05/25 10:41 Height 5 ft 6 in BMI Reason not done Patient refused/unable BP 102/62 Blood Pressure Location Rt brachial Position Sitting Respiration 15 Pulse 82 Pulse Source Pulse Oximeter Temp 98.2 F Temp Source Temporal Artery Scan Pulse Oximetry (%) 95 Oxygen Delivery Method Room Air Intake Visit Reasons: palliative care/fu pain control/chronic conditions Intake Note: Phoenix presents in the office for palliative care and pain control. Molder Punch Required: No Is last menstrual period known: No Post menopausal: Yes Patient : No Allergies Penicillins Allergy (Intermediate, Verified 06/05/25 10:37) compromises mental health Medication List - Last Reconciled 06/08/25 by Nicholas Yang MD albuterol sulfate 90 mcg/actuation (Ventolin HFA) 2 puffs PO Q4H PRN 1 month aspirin 81 mg PO DAILY 90 days atorvastatin 80 mg PO DAILY 90 days bisoprolol fumarate 2.5 mg (1/2 x 5 mg) PO DAILY 90 days blood sugar diagnostic (FreeStyle Lite Strips) Use to check blood sugar 4 times daily, before mealtimes and bedtime. blood-glucose meter (FreeStyle Lite Meter kit) Use to check blood sugar 4 times daily, before mealtimes and bedtime. blood-glucose sensor (CrowdCurityStyle Fan 3 Sensor device) As directed blood-glucose,hospital supervisor,cont (FreeStyle Fan 3 [place]) As directed bupropion HCl XL (Wellbutrin XL) 300 mg PO QAM calcitriol 0.25 mcg PO TUTHSA cholecalciferol (vitamin D3) 50 mcg PO DAILY clonazepam 1 mg PO BID PRN diclofenac sodium 1% 4 grams topical QID 30 days ezetimibe 10 mg PO DAILY 90 days hydromorphone 2 mg PO Q6H PRN 30 days inhalational spacing device (Aerochamber MV spacer) As directed insulin aspart U-100 (Novolog FlexPen U-100 Insulin aspart) 1 sliding scale dose subcut USEASDIRECTD 30 days insulin degludec (Tresiba FlexTouch U-200 insulin) 20 units (0.1 mL) subcut BEDTIME 30 days insulin syringe-needle U-100 (BD Insulin Syringe Ultra-Fine) USE 3 TIMES A DAY lancets (FreeStyle Lancets) Use to check blood sugar 4 times daily, before mealtimes and bedtime. midodrine 10 mg PO TID 30 days montelukast 10 mg PO BEDTIME pantoprazole 40 mg PO DAILY 90 days pen needle, diabetic (BD Ultra-Fine Esperanza Pen Needle) As directed four times a day sennosides (senna) 8.6 mg PO BEDTIME sucroferric oxyhydroxide (Velphoro) 500 mg PO TID ticagrelor 90 mg PO BID 90 days trazodone 300 mg PO BEDTIME Tobacco use date assessed: 06/05/25 Dental Screening Dental Screen Date: 06/05/25 Did you have a dental visit in the last 12 months?: No Did you have a dental problem in the last 6 months where you did not have access to dental care?: No Was dental information given to patient?: Patient declined HPI palliative care/fu pain control/chronic conditions HPI Details 44 y/o female presents to f/u chronic conditions. Hx of end stage CHF, chronic pain. Had been on palliative care. Notes she has an appt. with Cardiology on the . More recently EF is now at least 40-45%. Reports ongoing shortness of breath, chest discomfort. A1c today 6.7%. 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 Autism Coronary artery disease Uncontrolled diabetes mellitus with hyperglycemia, with long-term current use of insulin Adrenal incidentaloma ESRD needing dialysis NSTEMI (non-ST elevated myocardial infarction) MDD (major depressive disorder) Hyperlipidemia due to type 1 diabetes mellitus Diabetic retinopathy Cauda equina syndrome Anasarca associated with disorder of kidney DM gastroparesis Abnormal abdominal MRI Hearing loss in right ear Hearing loss in left ear RSV infection Hypertensive urgency Diabetes mellitus type 1, uncontrolled Gastroparesis Moderate persistent asthma, uncomplicated Chronic GERD Cyclic vomiting syndrome Surgical History AVF (arteriovenous fistula) Previous back surgery Family History Father Diabetes Paternal Grandfather Diabetes Mother No known problems Social History (Updated 06/05/25 @ 10:40 by Cassidy Gardiner CMA) Housing: Apartment Alcohol intake: never Patient Tobacco Use Status: Former Tobacco user e-Cigarette/Vaping Use: Never Used Second Hand Smoke Exposure: No Substance Use Type: Marijuana Advance Directives Date on File: 08/31/22 service: No Current occupational status: disabled Current occupational exposures/hazards: No Cognitive needs: No Hearing needs: No Vision needs: No Questionnaire Thrive Questionnaire Date Thrive assessed: 07/22/24 I am a: Patient What is your living situation today?: I have a steady place to live Within the past 12 months, did the food you bought not last and you didn't have the money to get more?: Never true Within the past 12 months, did you worry whether your food would run out before you got money to buy more?: Never true Do you have trouble paying for medicines?: No Do you have trouble getting transportation to medical appointments?: No Do you have trouble paying your heating and electricity bill?: No Do you have trouble taking care of your child, family member or friend?: No Do you have trouble with day-to-day activities such as bathing, preparing meals, shopping, managing finances, etc.?: No Are you currently unemployed and looking for a job?: No Are you interested in more education?: No Currently or been in a relationship where the following occur: No concerns reported THRIVE Score: 0 TERRY-7 AMB Questionnaire TERRY-7 Date TERRY - 7 assessed: 12/23/24 Source: Developed by Drs. Channing Funes, Tenisha Foley, Mohan Fagan and colleagues, with an educational francis from [employer]. Review of Systems Const Denies chills, Denies fatigue, Denies fever(s), Denies headache(s) and Denies weakness ENT Denies dizziness and Denies headache(s) Card Denies dyspnea Resp Denies cough, Denies dyspnea, Denies wheezing and Denies other (shortness of breath) Musc Denies numbness and Denies tingling Neuro Denies dizziness, Denies headache(s), Denies numbness, Denies tingling and Denies weakness Psych Denies anxiety and Denies depression Endo Denies fatigue Aller/Immun Denies wheezing Physical exam (Primary Care) Vital Signs: Last Vital Signs Temp 98.2 F 06/05/25 10:41 Pulse 82 06/05/25 10:41 Resp 15 06/05/25 10:41 BP 102/62 06/05/25 10:41 Pulse Ox 95 06/05/25 10:41 Oxygen Delivery Method Room Air 06/05/25 10:41 Tobacco/Smoking Status: Tobacco use Status Tobacco use date assessed 06/05/25 06/05/25 10:45 Patient Tobacco Use Status Former Tobacco user 06/05/25 10:40 e-Cigarette/Vaping Use Never Used 06/05/25 10:40 Thrive Assessment: Date of Thrive Assessment Date Thrive assessed 07/22/24 06/05/25 10:32 Currently or been in a relationship where the following occur: No concerns reported Const General: well developed; No acute distress Nutritional Appearance: well nourished Orientation/consciousness: patient oriented x3 HENMT Head: Yes normocephalic and Yes atraumatic Eyes General: appearance normal, both eyes and all related structures Pupils: Equal, round and reactive pupils present EOM: EOMs intact bilaterally Resp Effort & Inspection: normal respiratory effort Neuro General: patient oriented x3 and gait normal Cranial nerves: Yes Equal, round and reactive pupils present Psych Affect: normal affect Results AMB Hemoglobin A1c AMB Hemoglobin A1c 6.7 % Last Edit by Cassidy Gardiner CMA on 06/05/25 10:47 Results Reviewed Results Reviewed: Laboratory Last Values Hgb A1c (Clinic) 6.7 % (4.0-6.0) H 06/05/25 10:46 Coding Level of Care Code Est Pt Level 4 (40039) Diagnoses End stage congestive heart failure I50.84 NSTEMI (non-ST elevated myocardial infarction) I21.4 Chronic pain syndrome G89.4 Chronic pain type: chronic pain syndrome 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 on chronic dialysis E10.22; N18.6; Z99.2 Chronic kidney disease stage: on chronic dialysis Assessment & Plan Assessment & Plan (1) End stage congestive heart failure: Comment: 12/09/2024 ECHO EF 17% [facility] Code(s): I50.84 - End stage heart failure Category: Medical (2) NSTEMI (non-ST elevated myocardial infarction): Code(s): I21.4 - Non-ST elevation (NSTEMI) myocardial infarction Category: Medical (3) Chronic pain: Code(s): G89.29 - Other chronic pain Category: Medical Qualifiers: Chronic pain type: chronic pain syndrome Qualified Code(s): G89.4 - Chronic pain syndrome (4) 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 Patient had been on palliative care More recently EF is now at least 40-45%. She has an upcoming appointment with Dr. Graves in June. She has seen pain management and they recommended management of her pain medications with direction from palliative Care. I agree with this and discussed with the patient that I will make a referral to palliative Care, Dr. Reyes, who she says she has seen before. I discussed with her that I am willing to prescribe her medications but would need direction from palliative Care. Patient understands and agrees. Referring back to Dr. Reyes. Also followed by Dr. Sherman - appreciate input. He is discussing renal transplant with patient. Palliative care: Dr. Reyes Cardiology and heart failure: Dr Graves Nephrology: Dr Sherman Pain management: Dr Chambers Orders: Orders AMB Hemoglobin A1c 06/05/25 E10.22 - Type 1 diabetes mellitus with diabetic chronic kidney disease, N18.6 - End stage renal disease, Z99.2 - Dependence on renal dialysis Referrals Palliative Care Referral E11.22 - Type 2 diabetes mellitus with diabetic chronic kidney disease, G89.29 - Other chronic pain, I21.4 - Non-ST elevation (NSTEMI) myocardial infarction, I50.9 - Heart failure, unspecified, M54.41 - Lumbago with sciatica, right side, M54.42 - Lumbago with sciatica, left side, N18.4 - Chronic kidney disease, stage 4 (severe) Cardiology Referral I21.4 - Non-ST elevation (NSTEMI) myocardial infarction, I50.9 - Heart failure, unspecified, Z95.5 - Presence of coronary angioplasty implant and graft Medications: Changed From hydromorphone MassPat Verified. Partial Fill upon patient request. 2 mg PO Q6H 8 days PRN 32 tabs 0RF pain G89.4 - Chronic pain syndrome To hydromorphone MassPat Verified. Partial Fill upon patient request. 2 mg PO Q6H PRN 120 tabs 0RF pain 30 days G89.4 - Chronic pain syndrome
--- OUTSIDE RECORDS SUMMARY | 2025-06-05 10:30 | XMS_ITS | Clinical Summary ---
Author Organization [facility] Address [address] [place] [address] Care Team Providers Care Colorist Photography Name Role Phone Urmila BARCENAS MD, Mario Merlos Primary Care Prov ider Allergies No known active allergies Medications insulin glargine (LANTUS) 100 unit/mL injection Inject 60 Units under the skin at bedtime. Active insulin aspart U-100 (NovoLOG) 100 unit/mL injection Inject under the skin using the insulin sliding scale instructions. Active DULoxetine (CYMBALTA) [address] capsule Take 120 mg by mouth daily. Active buPROPion (WELLBUTRIN XL) 300 MG 24 hr tablet Take 300 mg by mouth daily. Active traZODone (DESYREL) 50 MG tablet Take 50 mg by mouth at bedtime. Active lisdexamfetamine (VYVANSE) 30 MG capsule Take 30 mg by mouth. Active losartan (COZAAR) 100 MG tabletIndications :Renal disease Take 1 tablet (100 mg total) by mouth daily. 90 tablet 9 Active amLODIPine (NORVASC) 5 MG tabletIndications :Type 1 diabetes mellitus with nephropathy ([facility]-HCC) Take 1 tablet (5 mg total) by mouth daily. 90 tablet 1 9 Active albuterol HFA (VENTOLIN; PROAIR; PROVENTIL) 90 mcg/actuation aerosol inhalerIndication s:Mild intermittent asthma without complication Inhale 1-2 puffs every 4 hours as needed for wheezing or shortness of breath. 1 Inhaler 3 9 Active insulin aspart U-100 (NovoLOG Flexpen U-100 Insulin) 100 unit/mL InPnIndications:T ype 1 diabetes mellitus with nephropathy (CMS-HCC) INJECT 60 UNITS ONCE DAILY 3 mL 2 9 Active insulin lispro 100 unit/mL InPnIndications:T ype 1 diabetes mellitus with nephropathy (CMS-HCC) USE SLIDING SCALE 3 mL 2 9 Active BLOOD GLUCOSE MONITORING (coUrbanizeTouch Ultra2 blood glucose monitoring) KitIndications:Ty pe 1 diabetes mellitus with nephropathy (CMS-HCC) Use as directed. Please dispense whatever brand [employer] [facility] covers 1 kit 3 9 Active lancets (LANCETS,ULTRA THIN) MiscIndications:T ype 1 diabetes mellitus with nephropathy (CMS-HCC) Use qid 120 each 11 9 Active blood sugar diagnostic (FREESTYLE TEST) StrpIndications:T ype 1 diabetes mellitus with nephropathy (CMS-HCC) Use 4 times a day 120 strip 11 9 Active montelukast (SINGULAIR) 10 mg tabletIndications :Mild intermittent asthma without complication TAKE 1 TABLET BY MOUTH EVERYDAY AT BEDTIME 90 tablet 1 9 Active atorvaSTATin (LIPITOR) 40 MG tablet TAKE 1 TABLET BY MOUTH EVERY DAY 30 tablet 9 Active clonazePAM (KlonoPIN) 1 MG tablet Take 2 tablets (2 mg total) by mouth daily. Active Active Problems Problem Noted Date Diagnosed Date Essential hypertension 10/15/2018 Renal disease 07/23/2018 Cauda equina syndrome 07/23/2018 Type 1 diabetes mellitus with kidney complicatio n 11/02/2017 Overview (04/09/2019): CARE AT [facility] Last Assessment & Plan: Monitoring blood sugars closely as above. Will need to restart on her home regimen once her blood sugars have stabilized. We'll follow her BMP regularly and replete electrolytes as needed. Intentional drug overdose 11/02/2017 Overview (07/23/2018): Last Assessment & Plan: Poison control was [...] observation do to ongoing depression and suicidality. Immunizations Immunization Administration Dates Next Due Influenza Vaccine - STANDARD - SDV (FLUZONE/FLUARIX/FLULAVAL/AFLURIA) 07/23/2018 Pneumococcal polysaccharide vaccine 23-valent (PPSV23/[id number]) 07/23/2018 Tdap Vaccine (BOOSTRIX/ADACEL) 07/23/2018 Family History Medical History Relation Comments Diabetes Father Heart disease Father Hepatitis Father Liver cancer Father Arthritis Mother COPD Mother Dementia Mother Drug abuse Mother Mental illness Mother Diabetes Sister Mental illness Sister Relation Status Comments Father Mother Alive Sister Alive Social History Tobacco Use Types Packs/Day Years Used Date Smoking Tobacco: Former Smokeless Tobacco: Never Comments Unknown Sex and Gender Information Value Date Recorded Sex Assigned at Female 07/23/2018 10:41 AM EST Legal Sex Female 3:10 PM EST Gender Identity Female 07/23/2018 10:41 AM EST Sexual Orientation Not on file Last Filed Vital Signs Vital Sign Reading Time Taken Comments Blood Pressure 180/82 07/23/2018 10:54 AM EST Pulse 92 07/23/2018 10:54 AM EST Temperature 36.7 C (98 F) 07/23/2018 10:54 AM EST Respiratory Rate 17 06/24/2018 5:26 PM EST Oxygen Saturation 98% 07/23/2018 10: 54 AM EST Inhaled Oxygen Concentration - - Weight 129 kg (285 lb 6.3 oz) 04/03/2019 1:40 PM EDT WeightContext: dressed without shoes; Comment: N/A Height 165.1 cm (5' 5 ) 04/03/2019 1:40 PM EDT HeightMethod: carried forward; HeightBodyPosition: N/A; Comment: N/A Body Mass Index 47.49 04/03/2019 1:40 PM EDT Plan of Treatment Health Maintenance Due Date Last Done Comments Blood Pressure 1980 Celiac Disease Screening 1980 Diabetic Eye Exam 1981 Depression Screening 1993 Hepatitis C Screening 1999 Pap Smear 2002 Cervical Cancer Screening 2011 HPV/Cotest 2011 Pneumococcal Vaccine (2 of 2 - PCV) 07/23/2019 07/23/2018 Medicare Initial AWV G0438 08/10/2019 Hemoglobin A1c 10/03/2019 04/03/2019, 07/23/2018 Lipid Panel 04/03/2020 04/03/2019, 07/12, 07/23/2018, Additional history exists TSH Level 04/03/2020 04/03/2019 Urine Microalbumin 04/03/2020 04/03/2019, 0 11/14/2018, 07/23/2018 Breast Cancer Screening 2021 COVID-19 Vaccine (1 - 2024- season) 2025 Influenza Vaccine (#1) 2025 07/23/2018 DTaP,Tdap,and Td Vaccines (2 - Td or Tdap) 07/23/2028 07/23/2018 Meningococcal B Vaccines Aged Out No longer eligible based on patient's age to complete this topic Meningococcal Vaccines Aged Out No lo nger eligible based on patient's age to complete this topic Procedures Procedure Name Priority Date/Time Associated Diagnosis Comments ALBUMIN, URINE, RANDOM Routine 04/03/2019 12:57 PM EDT HEMOGLOBIN A1C Routine 04/03/2019 12:57 PM EDT LIPID PANEL Routine 04/03/2019 12:57 PM EDT TSH Routine 04/03/2019 12:57 PM EDT from Last 3 Months or Most Recently Relevant to Health Maintenance Results * (ABNORMAL) Lipid Panel (04/03/2019 12:57 PM EDT) Cholesterol 104(L) 130 - 220 mg/dL CONVERSION FROM [facility]EXT GEN HDL Cholesterol 37 35 - 95 mg/dL CONVERSION FROM [facility] LDL-CHOL CALC (CNV) 51 mg/dL CONVERSION FROM [facility] Triglycerides 81 50 - 200 mg/dL CONVERSION FROM [facility] NEXT GEN 04/03/2019 12:5 7 PM EDT 04/03/2019 12:57 PM EDT Susan Bethea MD LAB BLOOD ORDERABLES Tila l Result CONVERSION FROM [facility] NEXT GEN * (ABNORMAL) Albumin, Urine, Random (04/03/2019 12:57 PM EDT) Pathologist [facility] Albumin/Creatin ine Ratio, Urine 1432.26(H) 0.00 - 30.00 ug/mg CONVERSION FROM [facility] NEXT GEN Albumin, Urine mg/dL 1731.60(H) 0.00 - 0.00 ug/mL CONVERSION FROM [facility]EXT GEN Creatinine Urine 121 mg/dL CONVERSION FROM [facility] NEXT GEN 04/03/2019 12:5 7 PM EDT 04/03/2019 12:57 PM EDT Susan Bethea MD URINE ORDERABLES Final Re sult Performing Organization Address City/[facility]/ZIP Co de Phone Number CONVERSION FROM [facility] NEXT GEN * TSH (04/03/2019 12:57 PM EDT) Pathologist [facility] TSH 1.59 0.35 - 5.50 uIU/mL CONVERSION FROM [facility] NEXT GEN 04/03/2019 12:5 7 PM EDT 04/03/2019 12:57 PM EDT Susan Bethea MD LAB BLOOD ORDERABLES Tila l Result CONVERSION FROM [facility] NEXT GEN * (ABNORMAL) Hemoglobin A1C (04/03/2019 12:57 PM EDT) Pathologist [facility] Hemoglobin A1C 7.1(H) 4.0 - 6.0 % CONVERSION FROM [facility] NEXT GEN 04/03/2019 12:5 7 PM EDT 04/03/2019 12:57 PM EDT us Susan Bethea MD LAB BLOOD ORDERABLES Tila sanju Result CONVERSION FROM [facility] from Last 3 Months or Most Recently Relevant to Health Maintenance Insurance [facility] MEDICARE Care Teams Colorist Photography Relationship Specialty Start Date End Date Mario Kearns III, MD [address] [place] [id number] PCP - General Family Practice 06/26/18
--- OUTSIDE RECORDS SUMMARY | 2025-06-05 10:30 | XMS_ITS | Clinical Summary ---
Author Organization [facility] Address [address] [place] [address] Care Team Providers Care Freight Broker Name Role Phone Elkin Renia ESPERANZA Primary Care Provider [phone] Allergies No known active allergies Medications * [...] Influenza Vaccine 01/09/2025 06/05/2021, 07/23/2018 COVID-19 Vaccine (1 - 2024-2 6 season) 2025 HPV Vaccines (No Doses Required) Completed Procedures Procedure Name Priority Date/Time Associated Diagnosis Comments BASIC METABOLIC PANEL Routine 09/05/2022 7:48 AM EDT HEMOGLOBIN A1C WITH ESTIMATED AVERAGE GLUCOSE STAT 09/01/2022 6:06 AM EDT from Last 3 Months or Most Recently Relevant to Health Maintenance Results * (ABNORMAL) BASIC METABOLIC PANEL (09/05/2022 7:48 AM EDT) Glucose 150(H) 65 - 99 mg/dL 09/05/2022 8:57 AM EDT [facility] Comment:Fasting: <100 mg/dL, Non-Fasting: <200 mg/dL (ADA 2005) Blood Urea Nitrogen (BUN) 66(H) 8 - 21 mg/dL 09/05/2022 8:57 AM EDT [facility] Creatinine 9.8(H) 0.4 - 1.1 mg/dL 09/05/2022 8:57 AM EDT [facility] eGFR 5(L) >59 09/05/2022 8:57 AM [facility] Comment: CKD-EPI (2020) in mL/min/1.73 sq meters. [...] EDT September Asaf DO LAB BLOOD ORDERABLES Final Res ult HOSPITAL LAB See Below [address] [address] * (ABNORMAL) Hemoglobin A1c with Estimated Average Glucose (09/01/2022 6:06 AM EDT) Hemoglobin A1C 6.5(H) <5.7 % 09/01/2022 8:23 AM [facility] Comment: A1c% Interpretation 5.7 - 6.0 Increase [...] Final Resu lt HOSPITAL LAB See Below [facility] [address] [place] [address] from Last 3 Months or Most Recently Relevant to Health Maintenance Insurance [facility] Member Subscriber Plan / Payer (Ef fective 2022-Present) Name:Phoenix Leach Relation to Subscriber:Self Name:Phoenix Leach Payer ID:Not on file Group ID:Not on file Type:Not on file Address: [address] [id number] MEDICARE OUT OF NETWORK [facility] MISC MGD MEDICARE OUT OF NETWORK Advance Directives * Full Code (Latest Code Status on File) Date Activated Date Inactivated Comments 09/01/2022 4:52 AM Care Teams Freight Broker Relationship Specialty Start Date End Date Medina Ren NP [address] [place] [address] PCP - General Family Medicine 08/31/22
--- OUTSIDE RECORDS SUMMARY | 2025-06-05 10:30 | XMS_ITS | Clinical Summary ---
Author Organization [address] Address [address] [place] [phone] Phone Care Team Providers Care Patch Setter Name Role Phone Nicholas Yang MD Primary Care Provider [phone] Allergies Active Allergy Reactions Criticality Noted Date [...] 4 NEEDLES WITH INSULIN PENS DIRECTED DAILY 400 each 2 5 Active Active Problems Problem [...] to current medical therapy. Acute hypoxic respiratory failure 09/14/2023 Atherosclerotic heart disease 09/14/2023 Assessment & [...] attention by calling 911. NSTEMI (non-ST elevated myocardial infarction) 0 09/14/2023 Overview (03/25/2024): Last Assessment & Plan: With three-vessel coronary artery disease and ischemic cardiomyopathy. I do not think PCI is a good idea. So far, she has no angina symptoms. Unfortunately, she is quite adamant that she will not get any care in [facility]. I will try to refer her to Dr. Almanza in [facility] as long as her insurance allowed her. Will continue high-dose statin and aspirin. Will need to repeat lipid profile. Pulmonary edema 09/14/2023 Medical History Medical History Date Comments Volume overload DX:Volume overlo ad Influenza DX:Influenza Hyperglycemia due to diabete s mellitus ([facility] V24, [facility] V28) DX:Hyperglycemia due to earlene betes mellitus ([facility]) Social History Tobacco Use Types [...] PM EST Sexual Orientation Not on file Last [...] 09/05/2024 9:10 AM EDT Plan of Treatment Health Maintenance Due Date Last Done Comments Breast Cancer Screening 1981 Drug Screen 1981 Non-Opioid Controlled Substance Agreement 1981 Diabetes: Annual Foot Exam 1991 Diabetes: Annual Retina Eye Exam 1991 Cervical Cancer Screening: Pap Smear 2002 HPV Vaccines (1 - 3-dose SCDM series) 2008 Diabetes: Annual GFR (Glomerular Filtration Rate) 09/06/2023 [...] Test (HGBA1C) 06/13/2024 09/01/2022, 04/03/2019 COVID-19 Vaccine ( season) 2025 10/23/2020, 10/02/2020 Influenza Vaccine (#1) 2025 , 06/05/2021, 04/16/2019, Additional history exists DTaP,Tdap,and Td Vaccines (3 - Td or Tdap) 07/23/2028 07/23/2018, 09/09/2012 RSV Immunization Adult Patients (1 - 1-dose 75+ series) 2056 MMR Vaccines Aged Out 09/09/2012 No longer [...] patient's age to complete this topic Insurance [facility] Member Subscriber Plan / Payer (Ef fective 2022-Present) Name:PHOENIX JOHNSON Relation to Subscriber:Self Name:Phoenix Johnson Payer ID:[id number] Group ID:[id number] Type:Not on file Address: [address] [place] [address] Advance Directives Documents on File Type Date Recorded 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
--- OUTSIDE RECORDS SUMMARY | 2025-06-05 10:30 | XMS_ITS | Clinical Summary ---
Author Organization [facility] Prior to 11/08/24 Address [address] [place] [address] Care Team Providers Care Wagon Drill Operator Name Role Phone Unavailable Primary Care Provider Unavailabl e Social History Tobacco Use Types Packs/Day Years Used Date Smoking Tobacco: Never Assessed Sex and Gender Information Value Date Recorded Sex Assigned at Not on file Gender Identity Not on file Sexual Orientation Not on file Plan of Treatment Not on file
--- OUTSIDE RECORDS SUMMARY | 2025-06-05 10:30 | XMS_ITS | Encounter Summary ---
Author Organization [facility] Address [address] [facility] [address] [place] [address] Phone Care Team Providers Care Sole Tacker Name Role Phone Medina Ren CARBONATOR Primary Care Provider [phone] Reason for Visit * Reason Comments Med Refill Encounter Details Date Type Department Care Team (Late st Contact Info) Description 03/05/2021 Refill [facility] [address] [facility] [address] [place] [phone] Jerry Montenegro MD [address] [place] [id number] Social History Tobacco Use Types Packs/Day Years Used Date Smoking Tobacco: Former Cigarettes 0 Q uit: 06/11/2009 Smokeless Tobacco: Never Alcohol [...] on filedocumented in this encounter Care Teams Sole Tacker Relationship Specialty Start Date End Date Medina Ren NP [address] [place] [phone] PCP - General Nurse Practitioner 01/03/21 documented as of this encounter
--- OUTSIDE RECORDS SUMMARY | 2025-06-05 10:30 | XMS_ITS | Clinical Summary ---
Author Organization [facility] Address [address] [place] [address] Phone Care Team Providers Care Tool Design Engineer Name Role Phone Medina Ren NP Primary Care Provider [phone] Allergies Active Allergy Reactions Criticality Noted Date [...] tablet 1 10/09/2022 Active ergocalciferol 1.25 MG (28902 UT) capsule TAKE 1 CAPSULE BY MOUTH [...] and replete electrolytes as needed. [facility]ARE AT [facility] Last Assessment & Plan: Monitoring blood sugars closely as above. Will need to restart on her home regimen once her blood sugars have stabilized. We'll follow her BMP regularly and replete electrolytes as needed. Type 1 diabetes mellitus 11/02/2017 Overview (10/25/2020): [facility] Last Assessment & Plan: Monitoring [...] suicidality. Immunizations Immunization Administration Dates Next Due Influenza, [...] Hemoglobin A1C 7.5(H) 4.8 - 5.9 % [facility] 06/25/2024 06/30/2024 11: 12 AM EST Narrative NICK - 06/30/2024 Unless otherwise specified, test(s) performed at: [facility] [address] DUTY OFFICER: Reece Sexton M.D. For any questions, please call customer service at FREQUENCY:MONTHLY Resulting Agency Comment Specimen source: Blood Cooper Mena MD LAB BLOOD BANK TEST ORDERABLE S Final Result [facility] See order comments or contact performing lab Unknown, [place] from Last 3 Months or Most Recently Relevant to Health Maintenance Insurance [facility] ([id number]) [place] [phone] [facility] ([id number]) [facility] ([id number]) Care Teams Tool Design Engineer Relationship Specialty Start Date End Date Medina Ren NP [address] [place] [address] [phone] PCP - General Nurse Practitioner 01/03/21
--- OUTSIDE RECORDS SUMMARY | 2025-06-05 10:30 | XMS_ITS | Encounter Summary ---
Author Organization [facility] Address [address] [place] [address] Phone Care Team Providers Care Warp Tying Machine Knotter Name Role Phone Saroj Bustillo MD Unavailable [phone] Nicholas Yang MD Primary Care Provider Encounter Details Date Type Department Care Team (Late st Contact Info) Description 01/05/2025 Procedure Pass [facility], Ct Scan - [facility] [address] [place] [address] Social History Tobacco Use Types Packs/Day Years [...] PM EDT documented as of this encounter Plan of Treatment Not on file documented as of this encounter Visit Diagnoses Not on filedocumented in this encounter Care Teams Warp Tying Machine Knotter Relationship Specialty Start Date End Date Nicholas Yang MD [address] [place] [address] PCP - General Family Medicine 12/17/24 Saroj Bustillo MD [address] [place] [address] [email or web address] Automobile Relocation Engineer Nephrology 05/03/21 documented as of this encounter Additional Source Comments The information contained in this document represents components of the legal health record. It is not the complete legal health record.[facility]
--- OUTSIDE RECORDS SUMMARY | 2025-06-05 10:30 | XMS_ITS | Encounter Summary ---
Author Organization [facility] Address [address] [facility] [address] [place] [phone] Phone Care Team Providers Care Premises Technician Name Role Phone Medina Ren NP Primary Care Provider Saroj Bustillo MD Unavailable [phone] Pcp, Unknown Primary Care Provider Nicholas Diane MD Primary Care Provider Encounter Details Date Type Department Care Team (Late st Contact Info) Description 05/03/2021 Procedure Pass [facility] [address] [place] [address] Social History Tobacco Use Types Packs/Day Years [...] documented as of this encounter Care Teams Premises Technician Relationship Specialty Start Date End Date Gela Medina ESPERANZA Edge PCP - General Family Medicine 01/30/21 12/02/21 Pcp, Unknown PCP - General 12/03/21 12/16/24 Nicholas Yang MD PCP - General Family Medicine 12/17/24 Saroj Bustillo MD [address] [facility] [address] [place] [address] [email or web address] Sugar Sampler Nephrology 05/03/21 documented as of this encounter Additional Source Comments The information contained in this document represents components of the legal health record. It is not the complete legal health record.[facility]
--- OUTSIDE RECORDS SUMMARY | 2025-06-05 10:31 | XMS_ITS | Encounter Summary ---
Author Organization [facility] Address [address] [place] [address] Phone Care Team Providers Care Stock Associate Name Role Phone Medina Ren BAR ASSISTANT Primary Care Provider [phone] Reason for Visit * Reason Comments Med Refill Encounter Details Date Type Department Care Team (Late st Contact Info) Description 09/06/2022 Refill [facility] [address] [place] [address] Chan Magaña MD Social History [...] on filedocumented in this encounter Care Teams Stock Associate Relationship Specialty Start Date End Date Medina Ren NP [address] [place] [address] [phone] PCP - General Nurse Practitioner 01/03/21 documented as of this encounter
--- OUTSIDE RECORDS SUMMARY | 2025-06-05 10:31 | XMS_ITS | Clinical Summary ---
Author Organization [facility] Address [address] [place] [id number] Phone Care Team Providers Care Casino Surveillance Officer Name Role Phone Saroj Bustillo MD Unavailable [phone] Nicholas Yang MD Primary Care Provider [...] ischemic heart disease previously declined CABG at [facility] in 08/2023 due to perceived bedside manner of surgeon and cardiac team. Unfortunately she now has severe CAD and presented with NSTEMI at [facility] 12/10 and thought not to be [...] suicidality. Ingestion of toxic substance 11/02/2017 11/02/2017 Family History Medical History Relation Comments Diabetes [...] this topic Medical Devices Not on file Insurance [address] [place] [address] MEDICARE PART A & B [facility] ONE CARE MEDICARE REPLACEMENT * Guarantor: Phoenix Leach Account Type Relation to Patient Date of Phone Billing Address Personal/Family Self [address] [place] [address] MEDICARE PART A & B Member Subscriber Plan / Payer (Ef fective 2018-) Name:Phoenix Leach Member ID:[id number] Relation to Subscriber:Self Name:Phoenix Leach Subscriber ID:[id number] Payer ID:[id number] Group ID:Not on file Type:Medicare Address: [employer] [facility] [address] [place] [id number] [facility] CARE MEDICARE REPLACEMENT * Guarantor: Phoenix Leach Account Type Relation to Patient Date of Phone Billing Address Personal/Family Self [address] [place] [address] MEDICARE PART A & B * Guarantor: Phoenix Leach Account Type Relation to Patient Date of Phone Billing Address Personal/Family Self [address] [place] [address] MEDICARE PART A & B * Guarantor: Phoenix Leach Account Type Relation to Patient Date of Phone Billing Address Personal/Family Self 1980 [address] [place] [address] MEDICARE PART A & B ONE CARE MEDICARE REPLACEMENT FELA HOLLOWAY [id number] * Guarantor: Phoenix Leach Account Type Relation to Patient Date of Phone Billing Address Personal/Family Self [address] [place] [address] MEDICARE PART A & B * Guarantor: Phoenix Leach Account Type Relation to Patient Date of Phone Billing Address Personal/Family Self [address] [place] [address] MEDICARE PART A & B ONE CARE MEDICARE REPLACEMENT FELA HOLLOWAY [id number] * Guarantor: Phoenix Leach Account Type Relation to Patient Date of Phone Billing Address Personal/Family Self [address] [place] [address] MEDICARE PART A & B ONE CARE MEDICARE REPLACEMENT [address] [facility] [address] [place] [address] MEDICARE PART A & B [facility] ONE CARE MEDICARE REPLACEMENT Advance Directives For more information, please contact: [phone] (9AM - 5PM [place], Sunday-Sunday) * DNR/DNI (No CPR/No Intubation) (Latest [...] 10:32 AM 11/03/2017 9:39 PM Care Teams Casino Surveillance Officer Relationship Specialty Start Date End Date Nicholas Yang MD [address] [place] [address] PCP - General Family Medicine 12/17/24 Saroj Bustillo MD [address] [place] [address] [email or web address] Commercial Real Estate Agent Nephrology 05/03/21 Additional Source Comments The information contained in this document represents components of the legal health record. It is not the complete legal health record.[facility]
[2025-06-05 10:41] VITALS: BP 102/62; PULSE 82; RESP 15; TEMP 36.8; O2SAT 95
== END 2025-06-05 11:34 | disposition home or self-care (01) ==
LOC: HO.HMCFM 10:25
PROVIDERS: PCP Family Medicine; Visit Provider Family Medicine
DX: E10.22 Type 1 diabetes mellitus with diabetic chronic kidney disease (principal); N18.6 End stage renal disease; Z99.2 Dependence on renal dialysis

== ENCOUNTER → 2025-06-05 10:24 | Outpatient (BNVA) | payer OTHER, SELFPAY | PROVIDERS: PCP Family Medicine; Visit Provider Family Medicine | DX: E10.22 Type 1 diabetes mellitus with diabetic chronic kidney disease (principal); N18.6 End stage renal disease; I21.4 Non-ST elevation (NSTEMI) myocardial infarction; G89.4 Chronic pain syndrome; Z99.2 Dependence on renal dialysis | CPT/HCPCS: 83036; 99212 ==